=== PATIENT | female | born 1935 | race Caucasian/White ===

== ENCOUNTER → 2017-08-07 14:10 | Outpatient (CLI) | payer MEDICARE, SELFPAY ==
[2017-08-07 16:04] LABS: Anion Gap 8 (5-15); BUN 27 mg/dL (7-18); BUN/Creat Ratio 24.3 RATIO (10-20); Calcium,Total 9.3 mg/dL (8.5-10.1); Chloride 101 mmol/L (98-107); Creatinine, Serum 1.11 mg/dL (0.55-1.02); EST Glomerular Filtration Rate 50 mL/min (>60); Est Glom Filt Rate - Afr Amer 61 mL/min (>60); Glucose 88 mg/dL (74-106); Sodium Level 136 mmol/L (136-145); Thyroid Stim Hormone (TSH) 1.82 uIU/mL (0.358-3.74)
== END ==
PROVIDERS: Family Provider Family Medicine; PCP Family Medicine; Visit Provider Family Medicine
DX: I10 Essential (primary) hypertension (principal); R53.83 Other fatigue
CPT/HCPCS: 36415; 80048; 84443

== ENCOUNTER → 2017-08-31 15:54 | Outpatient (CLI) | payer MEDICARE, SELFPAY ==
--- NOTE | 2017-08-31 11:00 | LES_PTH ---
PATIENT: NESTOR MONTES DE OCA I LOC: [facility] U#:[id number] AGE/SX: 89/F ROOM: RE08/31/[address]: Dr. 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 Special stain for fungi is negative for organisms; matched control is appropriate. Negative for malignancy. SJ:danial 09/07/17 COMMENT Correlation with clinical findings and appropriate follow up are necessary. Case has been reviewed in consultation with Dr. Howe who concurs with the above diagnosis. IDC:AM MICROSCOPIC DESCRIPTION Slides are reviewed. GROSS DESCRIPTION Received is one container labeled with the patient's name and not further designated. The specimen consists of a discoid fragment of light boykin skin measuring 7 mm in diameter and with a maximal thickness of 0.2 cm. The specimen is inked, bisected and totally submitted in one cassette. / AM:danial 09/01/17 TC:3 CPT: 94257, 99594
== END ==
PROVIDERS: Visit Provider Family Medicine
DX: L98.9 Disorder of the skin and subcutaneous tissue, unspecified (principal)
CPT/HCPCS: 88305; 88312

== ENCOUNTER → 2017-09-28 11:57 | Outpatient (CLI) | payer MEDICARE, SELFPAY ==
--- NOTE | 2017-09-28 12:00 | BI_ITS ---
MAMMOGRAPHY - BILATERAL SCREENING REASON FOR EXAM: Female, 82 years old. Routine annual screening examination. PERTINENT HISTORY: Personal history of breast cancer. Prior left lumpectomy with radiation therapy. TECHNIQUE: Digital bilateral breast karina (3D mammographic acquisition) in the CC and MLO projections. 2-D mediolateral oblique (MLO) and craniocaudad (CC) views of both breasts were obtained. CAD: Full Field Digital Mammography with Computer Added Detection was performed. COMPARISON: Comparison is made with prior study dated September 22, 2016 and September 21, 2015. FINDINGS: Breast Composition: There are scattered areas of fibroglandular density. There are no dominant masses or suspicious calcifications. Once again, the patient is status post left lumpectomy with resultant architectural distortion and deformity of the retroareolar region of the left breast in keeping prior surgery. Stable scattered bilateral calcifications. Stable partially calcified nodules in the upper lateral portion of the left breast suggestive of calcifying fibroadenomas. No other significant abnormalities are identified. There has been no significant change since the prior study. BI/SCREENING MAMM (CAD), BILAT IMPRESSION: Stable bilateral screening mammogram. Yearly follow-up mammogram recommended. (A) ASSESSMENT CATEGORY: BIRADS Category 2: Benign. A letter regarding these results will be sent to the patient by the facility within 30 days. Approximately 10% of breast cancers are not detected by mammography. A normal mammogram should not delay biopsy of a clinically suspicious abnormality. [id number] Electronically Signed: Chente Alcaraz MD at 13:24 EDT Tel [phone], Service support ,
== END ==
PROVIDERS: Family Provider Family Medicine; PCP Family Medicine; Visit Provider Family Medicine
DX: Z12.31 Encounter for screening mammogram for malignant neoplasm of breast (principal)
CPT/HCPCS: 77063; 77067

== ENCOUNTER → 2018-02-05 10:55 | Outpatient (CLI) | payer MEDICARE, SELFPAY ==
[2018-02-05 12:19] LABS: Absolute Lymphocyte Count 1.77 X10^3/ul (0.83-4.51); Absolute Neutrophil Count 4.9 X10^3/uL (2.0-7.7); Basophil# 0.04 X10^3/uL; Basophil% 0.5 % (0-1); Eosinophil# 0.23 X10^3/uL; Hematocrit 41.4 % (37-47); Hemoglobin 12.9 g/dl (12.0-15.0); Lymphocyte # 1.77 X10^3/ul (4.0); Lymphocyte % 23.1 % (19-41); Mean Corp Hgb Conc 31.2 g/gl (32-36); Mean Corpuscular Hgb 28.5 pg (27.0-32.0); Mean Corpuscular Volume 91.6 fL (81-99); Mean Platelet Vol. 11.5 fl (6.2-12.0); Monocyte# 0.74 X10^3/uL; Monocyte% 9.6 % (0-10); Neutrophil # 4.87 X10^3/uL (2.7-7.7); Neutrophil % 63.5 % (47-70); Platelet Count 302 K/mm3 (150-450); RBC Distribution Width CV 14.7 % (11.6-14.6); Red Blood Count 4.52 M/mm3 (4.2-5.4); White Blood Count 7.7 K/mm3 (4.4-11.0)
[2018-02-05 12:24] LABS: POSITIVE COUNT NO; POSITIVE DIFFERENTIAL NO; POSITIVE MORPHOLOGY NO
[2018-02-05 12:51] LABS: ALB/GLOB Ratio 0.7 RATIO (0.9-2.4); AST(SGOT) 18 U/L (15-37); Alanine Aminotransfer ALT/SGPT 17 U/L (13-56); Albumin, Serum 3.4 g/dL (3.2-5.0); Alkaline Phosphatase 73 U/L (45-117); Anion Gap 8 (5-15); BUN 31 mg/dL (7-18); BUN/Creat Ratio 24.8 RATIO (10-20); Calcium,Total 8.8 mg/dL (8.5-10.1); Chloride 104 mmol/L (98-107); Cholesterol 208 mg/dL (200); Creatinine, Serum 1.25 mg/dL (0.55-1.02); EST Glomerular Filtration Rate 44 mL/min (>60); Est Glom Filt Rate - Afr Amer 53 mL/min (>60); Glucose 89 mg/dL (74-106); High Density Lipoprotein 55 mg/dL; Potassium 4.2 mmol/L (3.5-5.1); Protein, Total 8.4 g/dL (6.4-8.2); Sodium Level 136 mmol/L (136-145); Thyroid Stim Hormone (TSH) 2.17 uIU/mL (0.358-3.74); Triglycerides 121 mg/dL; Very Low Density Lipoprotein 24 mg/dL (5-40)
== END ==
PROVIDERS: Family Provider Family Medicine; PCP Family Medicine; Visit Provider Family Medicine
DX: E78.5 Hyperlipidemia, unspecified (principal); R42 Dizziness and giddiness
CPT/HCPCS: 36415; 80053; 80061; 84443; 85025

== ENCOUNTER → 2018-08-25 08:40 | Outpatient (CLI) | payer MEDICARE, SELFPAY ==
[2018-08-25 10:31] LABS: Anion Gap 5 (5-15); BUN 23 mg/dL (7-18); Calcium,Total 8.8 mg/dL (8.5-10.1); Chloride 102 mmol/L (98-107); Cholesterol 191 mg/dL (200); EST Glomerular Filtration Rate 56 mL/min (>60); Est Glom Filt Rate - Afr Amer 68 mL/min (>60); Glucose 93 mg/dL (74-106); High Density Lipoprotein 50 mg/dL; Potassium 4.3 mmol/L (3.5-5.1); Sodium Level 137 mmol/L (136-145); Triglycerides 146 mg/dL; Very Low Density Lipoprotein 29 mg/dL (5-40)
== END ==
PROVIDERS: Family Provider Family Medicine; PCP Family Medicine; Referring Provider Family Medicine; Visit Provider Family Medicine
DX: I10 Essential (primary) hypertension (principal)
CPT/HCPCS: 36415; 80048; 80061

== ENCOUNTER → 2018-09-03 06:05 | Outpatient (CLI) | payer MEDICARE, SELFPAY ==
--- NOTE | 2018-09-03 13:34 | STRESSREP ---
Stress Test Report Pharmacologic myocardial perfusion stress test. 83-year-old lady with a history of abnormal EKG. Stress protocol: Resting EKG demonstrates normal sinus rhythm with a rate of 81 bpm normal intervals are noted resting blood pressures 148/82 mmHg. 0.4 mg of regadenoson was infused per usual protocol followed by rapid intravenous saline flush injection continuous EKG monitoring was performed. The patient maintained sinus rhythm throughout the recording. At rest there were no ST or T wave changes noted suggest abnormal flow reserve the maximum heart rate was 96 bpm. At peak infusion nonspecific ST-T wave changes were noted. The resting blood pressures 148/82 with a peak blood pressure 112/62 mmHg. Myocardial perfusion protocol. 11.9 mCi of technetium 99m sestamibi was injected at rest. 0.4 mg of regadenoson was infused per usual protocol peak infusion 33.6 mCi of technetium 99m sestamibi was injected stress images were obtained stress and rest images were reconstructed in comparing the short axis vertical long horizontal long axis. Gated images were also obtained per Perfusion SPECT analysis: Review of the stress images demonstrate normal uptake of tracer noted in all areas of myocardium the resting images similarly demonstrate normal uptake of tracer noted in all areas of myocardium. There is mild apical thinning noted. No obvious ischemia is present. Gated SPECT analysis: The gated ejection fraction is noted to be 77%. Conclusion: Normal pharmacologic myocardial perfusion stress test. Preserved ejection fraction.
== END ==
PROVIDERS: Family Provider Family Medicine; PCP Family Medicine; Referring Provider Family Medicine; Visit Provider Family Medicine
DX: R07.9 Chest pain, unspecified (principal); R00.0 Tachycardia, unspecified; R94.31 Abnormal electrocardiogram [ECG] [EKG]
CPT/HCPCS: 78452; 93017; A9500; A4216; J2785

== ENCOUNTER → 2018-10-30 12:20 | Outpatient (CLI) | payer MEDICARE, SELFPAY ==
--- NOTE | 2018-10-30 12:23 | BI_ITS ---
MAMMOGRAPHY - BILATERAL SCREENING REASON FOR EXAM: Female, 83 years old. Routine annual screening examination. PERTINENT HISTORY: Personal history of breast cancer. Prior left lumpectomy with radiation therapy. Aunt with breast cancer. TECHNIQUE: Digital bilateral breast lisandro (3D mammographic acquisition) in the CC and MLO projections. 2-D mediolateral oblique (MLO) and craniocaudad (CC) views of both breasts were obtained. CAD: Full Field Digital Mammography with Computer Added Detection was performed. COMPARISON: Comparison is made with prior study dated September 28, 2017 and September 22, 2016. FINDINGS: Breast Composition: There are scattered areas of fibroglandular density. There are no dominant masses or suspicious calcifications. Stable deformity of the left breast secondary to prior lumpectomy and radiation therapy. Stable periareolar thickening. Stable scattered bilateral calcifications. No other significant abnormalities are identified. There has been no significant change since the prior study. BI/SCREEN MAMM (CAD) W/LISANDRO BILAT IMPRESSION: Stable bilateral screening mammogram. Yearly follow-up mammogram recommended. (A) ASSESSMENT CATEGORY: BIRADS Category 2: Benign. A letter regarding these results will be sent to the patient by the facility within 30 days. Approximately 10% of breast cancers are not detected by mammography. A normal mammogram should not delay biopsy of a clinically suspicious abnormality. [id number] Electronically Signed: Chente Alcaraz, at 13:45 EDT , Service support ,
== END ==
PROVIDERS: Family Provider Family Medicine; PCP Family Medicine; Referring Provider Family Medicine; Visit Provider Family Medicine
DX: Z12.31 Encounter for screening mammogram for malignant neoplasm of breast (principal)
CPT/HCPCS: 77063; 77067

== ENCOUNTER → 2019-02-21 14:04 | Outpatient (CLI) | payer MEDICARE, SELFPAY ==
[2019-02-21 16:03] LABS: Anion Gap 7 (5-15); BUN 39 mg/dL (7-18); BUN/Creat Ratio 26.4 RATIO (10-20); Chloride 104 mmol/L (98-107); Cholesterol 184 mg/dL (200); Creatinine, Serum 1.48 mg/dL (0.55-1.02); EST Glomerular Filtration Rate 36 mL/min (>60); Est Glom Filt Rate - Afr Amer 43 mL/min (>60); Glucose 82 mg/dL (74-106); High Density Lipoprotein 44 mg/dL; Potassium 4.1 mmol/L (3.5-5.1); Sodium Level 136 mmol/L (136-145); Triglycerides 150 mg/dL; Very Low Density Lipoprotein 30 mg/dL (5-40)
== END ==
PROVIDERS: Family Provider Family Medicine; PCP Family Medicine; Referring Provider Family Medicine; Visit Provider Family Medicine
DX: I10 Essential (primary) hypertension (principal)
CPT/HCPCS: 36415; 80048; 80061

== ENCOUNTER → 2019-08-22 14:03 | Outpatient (CLI) | payer MEDICARE, SELFPAY ==
[2019-08-22 16:19] LABS: Anion Gap 8 (5-15); BUN 30 mg/dL (7-18); Calcium,Total 9.3 mg/dL (8.5-10.1); Chloride 97 mmol/L (98-107); Cholesterol 206 mg/dL (200); Creatinine, Serum 1.25 mg/dL (0.55-1.02); EST Glomerular Filtration Rate 43 mL/min (>60); Est Glom Filt Rate - Afr Amer 53 mL/min (>60); Glucose 93 mg/dL (74-106); High Density Lipoprotein 55 mg/dL; Potassium 3.9 mmol/L (3.5-5.1); Sodium Level 132 mmol/L (136-145); Triglycerides 71 mg/dL; Very Low Density Lipoprotein 14 mg/dL (5-40)
== END ==
PROVIDERS: PCP Family Medicine; Referring Provider Family Medicine; Visit Provider Family Medicine
DX: I10 Essential (primary) hypertension (principal)
CPT/HCPCS: 36415; 80048; 80061

== ENCOUNTER → 2019-11-21 15:11 | Outpatient (CLI) | payer MEDICARE, SELFPAY ==
--- NOTE | 2019-11-21 15:18 | BI_ITS ---
MAMMOGRAPHY - BILATERAL SCREENING 3-D TOMOSYNTHESIS REASON FOR EXAM: Female, 84 years old. Annual screening mammogram. PERTINENT HISTORY: History of lumpectomy at age 76 with radiation.. TECHNIQUE: 2-D mammograms and 3-D Tomosynthesis of the breast (s) were performed. CAD was performed. COMPARISON: 10/30/2018, 01/28/2018 FINDINGS: The breast composition is almost entirely fat. Stable postlumpectomy changes on the left. Stable diffuse benign calcifications bilaterally. There has been no significant change since the prior study. BI/SCREEN MAMM (CAD) W/LISANDRO BILAT IMPRESSION: No mammographic signs of malignancy. Routine yearly mammograms recommended. ASSESSMENT CATEGORY: BIRADS Category 2: Benign. A letter regarding these results will be sent to the patient by the facility within 30 days. FOLLOW UP RECOMMENDATION: Yearly follow up mammogram recommended. (A) Approximately 10% of breast cancers are not detected by mammography. A normal mammogram should not delay biopsy of a clinically suspicious abnormality. Electronically Signed: Prasanth Melendez MD at 15:20 EDT , Service support ,
== END ==
PROVIDERS: PCP Family Medicine; Referring Provider Family Medicine; Visit Provider Family Medicine
DX: Z12.31 Encounter for screening mammogram for malignant neoplasm of breast (principal); Z85.3 Personal history of malignant neoplasm of breast
CPT/HCPCS: 77063; 77067

== ENCOUNTER → 2020-02-17 10:18 | Outpatient (CLI) | payer MEDICARE, SELFPAY ==
[2020-02-17 12:56] LABS: Anion Gap 7 (5-15); BUN 33 mg/dL (7-18); BUN/Creat Ratio 24.1 RATIO (10-20); Calcium,Total 8.9 mg/dL (8.5-10.1); Chloride 97 mmol/L (98-107); Cholesterol 187 mg/dL (200); Creatinine, Serum 1.37 mg/dL (0.55-1.02); EST Glomerular Filtration Rate 39 mL/min (>60); Est Glom Filt Rate - Afr Amer 47 mL/min (>60); Glucose 88 mg/dL (74-106); High Density Lipoprotein 50 mg/dL; Potassium 4.2 mmol/L (3.5-5.1); Sodium Level 133 mmol/L (136-145); Triglycerides 117 mg/dL; Very Low Density Lipoprotein 23 mg/dL (5-40)
== END ==
PROVIDERS: PCP Family Medicine; Visit Provider Family Medicine
DX: I10 Essential (primary) hypertension (principal)
CPT/HCPCS: 36415; 80048; 80061

== ENCOUNTER → 2020-03-04 11:32 | Outpatient (CLI) | payer MEDICARE, SELFPAY ==
--- NOTE | 2020-03-04 11:36 | RAD_ITS ---
STUDY: X-RAY - PELVIS AND BILATERAL HIPS REASON FOR EXAM: Female, 85 years old. PAIN FOR 3 DAYS, RIGHT HIP WORSE THAN LEFT, NO KNOWN INJURY TECHNIQUE: AP view of the pelvis.? 2 views of the right hip, and 2 views of the left hip were obtained. COMPARISON: None. FINDINGS: There is a non-specific bowel gas pattern. Normal visualized soft tissue structures. There is narrowing with cortical sclerosis and osteophyte formation of the sacroiliac joint consistent with degenerative osteoarthritic changes. Normal bilateral superior and inferior pubic rami. There is narrowing with sclerosis of the pubic symphysis. Normal bilateral ischial tuberosities. Nondisplaced right subcapital fracture. There are osteoarthritic changes of the right femoral head with marginal osteophyte formation. There is osteoarthritic spur formation of the right acetabular rim. There is moderate articular joint space narrowing of the right hip. Normal visualized left femoral head. Normal left acetabulum. There is moderate articular joint space narrowing of the left hip. RAD/Hips B/L min 2 views w/ Pelvis IMPRESSION: Nondisplaced right subcapital fracture of the proximal femur. 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 Electronically Signed: Chente Alcaraz, at 11:58 EST , Service support ,
== END ==
PROVIDERS: PCP Family Medicine; Referring Provider Family Medicine; Visit Provider Family Medicine
DX: M25.551 Pain in right hip (principal)
CPT/HCPCS: 73521

== ENCOUNTER 2020-03-05 13:15 | Inpatient (IN) | payer MEDICARE, SELFPAY ==
[2020-03-05 13:17] VITALS: BP 148/69; PULSE 87; RESP 18; TEMP 36.5; O2SAT 98; BMI 36.1
--- NOTE | 2020-03-05 13:33 | EKG12_ITS ---
Test Reason : DYSRHYTHMIA Blood Pressure : / mmHG Vent. Rate : 089 BPM Atrial Rate : 089 BPM P-R Int : 186 ms QRS Dur : 078 ms QT Int : 366 ms P-R-T Axes : 090 002 021 degrees QTc Int : 445 ms Normal sinus rhythm Normal ECG Confirmed by YOLANDE KINNEY, MARLI ([id number]), editor producer CHUCKIE LOVE ([id number]) on 03/09/2020 1:04:34 PM Referred By: Confirmed By:MARLI LANIER MD
--- NOTE | 2020-03-05 13:48 | ED.VIS.GEN ---
History of Present Illness Chief Complaint: Lower Extremity Injury Informant: Patient Onset: - - Known Context: - - Unknown Timing: - - Unknown Quality: Nondisplaced subcapital fracture right Location: Right subcapital nondisplaced fracture Current Severity: Mild Maximum Severity: Mild Worsened by: Patient claims she last fell 1 year ago Relieved by: Not applicable Associated Symptoms: Discomfort which she localizes to the right ischial tuberosity Narrative: Patient is an elderly woman who presents because outpatient x-ray reveals a nondisplaced right subcapital fracture. Patient complains of pain in the right ischial tubercle region. She is able to ambulate. She has no other complaints. She does have history of hypertension. She asked if I was the orthopedic surgeon. I informed her that I am the ER physician and have the orthopedic surgeon on page. Prior similar symptoms: No Recent Illness/Hospitalization: No - Past Medical History (1) History of hypertension Status: Acute Past Medical History - Allergies and Home Meds Allergies/Adverse Reactions: Allergies Penicillins [PCN] Allergy (Verified 03/05/20 13:21) Swelling erythromycin base Adverse Reaction (Verified 03/05/20 13:21) Nausea Primary Care Physician: Waqas Palma MD [Primary Care Provider] - Prior records reviewed: Yes Surgical History: noncontributory Lives: With Family Smoking Status: Never smoker Alcohol: None Drugs: None Review of Systems General: Denies: Chills, Fever, Malaise Eyes: Denies: Visual changes - bilaterally, Blurred Vision - bilaterally ENT: Denies: Rhinorrhea, Sore throat Cardiovascular: Denies: Chest pain, Palpitations Respiratory: Denies: Dyspnea, Cough, Dyspnea on exertion Gastrointestinal: Denies: Abdominal pain, Nausea, Vomiting, Constipation Musculoskeletal: Denies: Myalgias, Arthralgias, Neck pain, Back pain, Swelling, Extremity Pain Endocrine: Denies: Polyuria, Polydipsia Hematologic: Denies: Easy bruising, Easy bleeding Allergy: Denies: Uticaria Physical Exam Vital Signs/Narrative: Vital Signs Temp Pulse Resp BP Pulse Ox 03/05/20 13:17 97.7 F L 87 18 148/69 H 98 Inital Vital Signs reviewed: Yes General: Well nourished, Well developed, Obese Head: Normocephalic, Atraumatic Eyes: Perrl, EOMI. Negative for: Pale conjunctiva, Scleral icterus ENT: Moist mucous membranes, No rhinorrhea Neck: Supple, Nontender, No lymphadenopathy, No JVD Cardiovascular: Regular rate, Regular rhythm, No murmurs, Normal S1 Respiratory: No distress, CTA bilaterally, Chest nontender Abdomen: Soft, Nontender, Nondistended, Normal bowel sounds Rectal: Deferred Back: Nontender, Normal Inspection Extremities: Tenderness, Edema. Negative for: Nontender Skin: Normal color, No rash Neurological: Alert, Oriented x3, Cranial nerves II-XII grossly intact, Normal Strength, Normal Sensation Psychological: Normal affect Diagnostic/Tx/Re-eval Chest X-Ray - ED: 1 View, Read by ED Physician, Normal, Heart, Lungs, Mediastinum, Bony Structures, No Acute Disease, Chronic Changes, - 03/05/20 14:11 Chest 1 View (Portable) [RAD] Stat Laboratory Results 03/05/20 03/05/20 03/05/20 13:50 13:50 13:50 WBC 9.6 RBC 4.33 Hgb 12.9 Hct 39.3 MCV 90.8 MCH 29.8 MCHC 32.8 RDW Std Deviation 46.0 H RDW Coeff of Kierra 13.6 Plt Count 313 MPV 10.9 Immature Gran % (Auto) 0.400 Neut % (Auto) 66.9 Lymph % (Auto) 19.9 [place] % (Auto) 10.4 H Eos % (Auto) 1.8 Baso % (Auto) 0.6 Absolute Neuts (auto) 6.4 Absolute Lymphs (auto) 1.90 Nucleated RBC % 0 PT 13.2 INR 1.1 APTT 26.5 Sodium 133 L Potassium 4.4 Chloride 99 Carbon Dioxide 27.0 Anion Gap 7 BUN 31 H Creatinine 1.35 H Estim Creat Clear Calc 38.43 Est GFR (MDRD) Af Amer 48 L Est GFR (MDRD) Non-Af 40 L BUN/Creatinine Ratio 23.0 H Glucose 93 Calcium 9.2 - EKG Initial EKG Interpretation: Sinus Rhythm - Normal sinus rhythm with a ventricular rate 89. VA interval is 186. QRS duration 78 ms. QT duration 366 ms. [place] is normal. The EKG is normal. EKG was performed at 1343. - Medical Decision Making Outpatient x-ray does reveal a nondisplaced right subcapital fracture. There is no osteoclastic or blastic or bone abnormality to suggestive of pathologic fracture however with no history of trauma this needs to be entertained. Patient was ambulating and ambulated to the emergency department. Appropriate blood work was obtained for medical stratification prior to surgery. Orthopedist Dr. Trudy Vaca was paged. ED Disposition - Plan for ED Patient: Disposition: Acute Care Hospital [facility] Diagnosis: Closed subcapital fracture of right femur Referrals: Waqas Palma MD [Primary Care Provider] -
[2020-03-05 14:02] LABS: Absolute Neutrophil Count 6.4 X10^3/uL (2.0-7.7); Basophil# 0.06 X10^3/uL; Basophil% 0.6 % (0-1); Eosinophil# 0.17 X10^3/uL; Eosinophils% 1.8 % (0-5); Hematocrit 39.3 % (37-47); Hemoglobin 12.9 g/dL (12.0-15.0); Lymphocyte % 19.9 % (19-41); Mean Corp Hgb Conc 32.8 g/dL (32-36); Mean Corpuscular Hgb 29.8 pg (27.0-32.0); Mean Corpuscular Volume 90.8 fL (81-99); Mean Platelet Vol. 10.9 fl (6.2-12.0); Monocyte# 0.99 X10^3/uL; Monocyte% 10.4 % (0-10); NRBC Flagged by Analyzer 0 % (0-5); Neutrophil % 66.9 % (47-70); Platelet Count 313 K/mm3 (150-450); RBC Distribution Width CV 13.6 % (11.6-14.6); Red Blood Count 4.33 M/mm3 (4.2-5.4); White Blood Count 9.6 K/mm3 (4.4-11.0)
[2020-03-05 14:10] LABS: International Normalized Ratio 1.1; Prothrombin Time (Protime)PT. 13.2 SECONDS (11.7-14.9)
--- NOTE | 2020-03-05 14:11 | RAD_ITS ---
STUDY: X-RAY CHEST REASON FOR EXAM: Female, 85 years old. PRE OP, no chest complaints TECHNIQUE: Single AP portable view of the chest. COMPARISON: None. FINDINGS: Limited inspiratory effort. Minimal increased markings at the lung bases suggestive of atelectasis. There is no demonstrated pleural abnormality. Normal size heart. Normal mediastinum and karon. Normal visualized pulmonary arteries. There is atherosclerotic calcification of the aortic arch with tortuosity. There are diffuse degenerative changes of the visualized thoracic spine. Normal visualized ribs, clavicles, and shoulders. There is no demonstrated abnormality of the visualized soft tissue structures of the upper abdomen. RAD/Chest 1 View (Portable) IMPRESSION: Limited inspiratory effort with minimal increased markings at the lung bases suggestive of atelectasis. Electronically Signed: Chente Alcaraz, at 14:23 EST , Service support ,
[2020-03-05 14:12] LABS: Partial Thromboplast Time 26.5 Seconds (24.1-36.2)
[2020-03-05 14:13] LABS: Anion Gap 7 (5-15); BUN 31 mg/dL (7-18); Calcium,Total 9.2 mg/dL (8.5-10.1); Chloride 99 mmol/L (98-107); Creatinine, Serum 1.35 mg/dL (0.55-1.02); EST Glomerular Filtration Rate 40 mL/min (>60); Est Glom Filt Rate - Afr Amer 48 mL/min (>60); Estimated Creatinine Clearance 38.43 ml/min; Glucose 93 mg/dL (74-106); Potassium 4.4 mmol/L (3.5-5.1); Sodium Level 133 mmol/L (136-145)
--- NOTE | 2020-03-05 14:30 | NURSING ---
MED SURG NAY RT [facility]
[2020-03-05 14:33] VITALS: BP 155/62; PULSE 89; RESP 18; TEMP 36.6; O2SAT 99
[2020-03-05 15:04] VITALS: BMI 35.8
[2020-03-05 15:08] VITALS: BMI 35.8
[2020-03-05 15:14] VITALS: BP 151/66; PULSE 88; RESP 16; TEMP 37.1; O2SAT 99
--- NOTE | 2020-03-05 15:33 | HP.PCM_ITS ---
Problem List (1) History of hypertension Status: Chronic (2) Closed subcapital fracture of right femur Status: Acute History of Present Illness Date of Admission: 03/05/20 Chief Complaint: Right hip pain. The patient is a 85 year old F who presents to the emergency room due to right hip pain. Patient states pain has been ongoing for the past 2 days. She was seen by her primary care provider who ordered imaging of her hip. She was notified today to come to the emergency room due to right subcapital fracture. She denies fall or recent injury. She states she fell 1 year ago and reports x- rays at that time were normal. Patient states 2 days ago she was standing in the kitchen when her legs felt numb bilaterally. She states she sat down and this eventually went away. That night, while lying in bed she reports pain down her right leg. She has been able to ambulate. She has a past medical history of hypertension. Past Medical History Past Medical History (Chronic Problems): Chronic Problems History of hypertension (Chronic) Allergies Penicillins [PCN] Allergy (Verified 03/05/20 13:21) Swelling erythromycin base Adverse Reaction (Verified 03/05/20 13:21) Nausea Home Medications: Ambulatory Orders Medication Instructions Recorded Amlodipine [Norvasc] 10 mg PO DAILY 03/05/20 Aspirin [Aspirin, Baby] 81 mg PO DAILY@0800 03/05/20 Cholecalciferol (Vitamin D3) 2,000 unit PO DAILY 03/05/20 [Vitamin D3] Cranberry Fruit Extract/Vit C [Cvs 2 ea PO DAILY 03/05/20 Cranberry-Vitamin C Sfgl] Hydrochlorothiazide [Hctz] 25 mg PO DAILY 03/05/20 Lisinopril [Zestril] 20 mg PO DAILY 03/05/20 Meloxicam 7.5 mg PO DAILY 03/05/20 Omeprazole 20 mg PO DAILY 03/05/20 Oxybutynin [Ditropan] 5 mg PO DAILY 03/05/20 Surgical History: hysterectomy, tonsillectomy, - - Psychiatric History: No pertinent psych hx IN [employer]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 Denies: Joint Pain, Joint Tenderness Skin: Denies: Rash, Wounds Neurological: Denies: Numbness, Tingling, Focal weakness Psychiatric: Denies: Anxiety, Depression, Homicidal Ideations, Suicidal Ideations Hematologic/ Lymphatic: Denies: Easy Bruising, Easy Bleeding VTE Information - Inpt Only VTE Present on Admission: No VTE Mechan Device Prophylaxis: None VTE Pharm Prophylaxis ordered?: Yes Patient Problems: Active and Suspected Problems Closed subcapital fracture of right femur (Acute) - Physical Exam Vitals/I&O's: Vital Signs Temp Pulse Resp BP Pulse Ox 98.7 F 88 16 151/66 H 99 03/05/20 15:14 03/05/20 15:14 03/05/20 15:14 03/05/20 15:14 03/05/20 15:14 Oxygen Delivery Method Room Air Weight: 171 lb 4.787 oz Body Mass Index (BMI) 35.8 General: Alert, Oriented x3, Cooperative HEENT: Atraumatic, PERRLA, EOMI, Normocephalic Neck: Supple, No JVD, Negative Carotid Bruits Lungs: Clear to auscultation, Normal air movement Cardiovascular: Regular rate, No murmurs Abdomen: Bowel Sounds Present, Soft, Non Tender Extremities: No clubbing, No cyanosis, No edema, Capillary Refill Less than 3 Seconds Skin: No rashes, No breakdown Musculoskeletal: No Tenderness to Palpation of Joints or Extremities Neurological: Cranial nerves II-XII grossly intact, Neuro grossly intact Psych/Mental Status: Normal Affect, Appropriate Laboratory Results 03/05/20 13:50: WBC 9.6, RBC 4.33, Hgb 12.9, Hct 39.3, MCV 90.8, MCH 29.8, MCHC 32.8, RDW Std Deviation 46.0 H, RDW Coeff of Kierra 13.6, Plt Count 313, MPV 10.9, Immature Gran % (Auto) 0.400, Neut % (Auto) 66.9, Lymph % (Auto) 19.9, [place] % (Auto) 10.4 H, Eos % (Auto) 1.8, Baso % (Auto) 0.6, Absolute Neuts (auto) 6.4, Absolute Lymphs (auto) 1.90, Nucleated RBC % 0 03/05/20 13:50: PT 13.2, INR 1.1, APTT 26.5 03/05/20 13:50: Sodium 133 L, Potassium 4.4, Chloride 99, Carbon Dioxide 27.0, Anion Gap 7, BUN 31 H, Creatinine 1.35 H, Estim Creat Clear Calc 38.43, Est GFR (MDRD) Af Amer 48 L, Est GFR (MDRD) Non-Af 40 L, BUN/Creatinine Ratio 23.0 H, Glucose 93, Calcium 9.2 03/05/20 13:50: Blood Type O POSITIVE, Antibody Screen NEGATIVE Current Medications Amlodipine Besylate (Amlodipine 5 Mg Tablet) 10 mg PO DAILY [facility] Aspirin (Aspirin 81 Mg Tab.Chew) 81 mg PO DAILY@0800 [facility] Heparin Sodium (Porcine) (Heparin Injection (Vial) 5,000 Unit/Ml Vial) 5,000 unit SC Q8 [facility] Hydrochlorothiazide (Hydrochlorothiazide 25 Mg Tablet) 25 mg PO DAILY [facility] Sodium Chloride () 1,000 mls @ 75 mls/hr IV .[id number] [facility] Lisinopril (Lisinopril 20 Mg Tablet) 20 mg PO DAILY [facility] Meloxicam (Meloxicam 7.5 Mg Tablet) 7.5 mg PO DAILY [facility] Morphine Sulfate (Morphine 2 Mg/Ml Syringe) 2 mg IV Q3H PRN PRN PRN Reason: Pain Score 6-10 Non-Formulary Medication (Cholecalciferol (Vitamin D3) [Vitamin D3]) 2,000 unit PO DAILY [facility] Non-Formulary Medication (Omeprazole) 20 mg PO DAILY [facility] Oxybutynin Chloride (Oxybutynin 5 Mg Tablet) 5 mg PO DAILY [facility] Oxycodone HCl (Oxycodone 5 Mg Tablet) 5 mg PO Q4H PRN PRN PRN Reason: Pain Score 4-5 Sodium Chloride (0.9% Saline Lock 10 Ml Syringe) 10 - 40 ml IV UD PRN PRN Reason: SALINE FLUSH Assessment/Plan All Active Problems Closed subcapital fracture of right femur (Acute) 1. Nondisplaced right subcapital fracture of the proximal femur-patient denies recent trauma. Orthopedic medicine consulted from ER. PT/OT. As needed pain regimen. NSQIP surgical risk calculator completed and patient is below average risk of or serious complication. Patient underwent stress test September 2018 which was negative for ischemia. Her only past medical history is hypertension and chronic kidney disease. Patient is at low risk for surgery and okay to proceed with surgical intervention per medical standpoint. 2. Hypertension-stable, continue amlodipine, lisinopril. 3. Chronic kidney disease stage III-at baseline. DVT prophylaxis-Heparin subcu This patient was seen by FERNANDA Correia under the supervision of Dr. Liang.
--- NOTE | 2020-03-05 15:56 | MRI_ITS ---
STUDY: MRI RIGHT HIP REASON FOR EXAM: Female, 85 years old. right hip pain, non displaced fracture, f/u abnormal xray TECHNIQUE: Standardized fat and water weighted pulse sequences were obtained in all 3 orthogonal planes. COMPARISON: X-ray 03/04/2020. FINDINGS: Normal hip joint without articular joint space narrowing. Normal acetabulum. Normal visualized labrum. Femoral head and neck intact bilaterally. Specifically, no marrow edema to indicate contusion or fracture of the right femoral neck. Radiographic finding may correspond to superimposition of acetabular spur. Marrow edema is noted in the right sacral ala with hypointense fracture line parallel to the sacroiliac joint. Marrow signal is otherwise normal. Mild edema deep to the right iliopsoas muscle, suggesting low-grade strain. Normal gluteus minimus, medius and iliopsoas tendons and distal insertions. Normal origin of the hamstring tendons. Trace fluid in the pelvis. MRI/Lower Ext Joint Only (Routine) IMPRESSION: 1. Nondisplaced fracture of the right sacral ala. 2. Low-grade right iliopsoas strain. 3. Mild free fluid in the pelvis. 4. No right femoral fracture. Plain film finding may be due to projection of acetabular spur. Electronically Signed: Laurita Gerardo MD at 20:29 EST Tel , Service support ,
--- NOTE | 2020-03-05 16:11 | CON.PCM_ITS ---
Reason for Consult Date of Consultation: 03/05/20 History of Present Illness: The patient is a 85 year old female that developed bilateral hip and leg pain after being in her kitchen recently. Patient had a loss of feeling in both legs. She then developed some bilateral buttock and hip pain. She then ultim ately developed some right hip pain with some numbness down to the right foot. She has continued to ambulate with a cane. Denies severe groin pain. She states that she fell last winter. She denies any recent trauma. She denies significant pre-existing hip pain before a week or so ago. Patient was seen by Dr. Palma. X-rays were obtained reported as a femoral neck fracture on the right. Hip arthritis. Reportedly Dr. Gaspar and/or Lanre were notified. Patient was sent to the hospital for admission. Dr. Gaspar was paged. I am uncertain of the response if any. Ultimately I was notified and consulted by Dr De Los Santos and Dr. Liang. I was unaware of involvement of the other orthopedic group acCording to the patient's nurse she has gotten out of bed on her own and easily walk to the bathroom with her cane Patient lives at home with her and multiple family members including her daughter's family [] Past Medical History Past Medical History (Chronic Problems): Chronic Problems History of hypertension (Chronic) Allergies Penicillins [PCN] Allergy (Verified 03/05/20 13:21) Swelling erythromycin base Adverse Reaction (Verified 03/05/20 13:21) Nausea Home Medications: Ambulatory Orders Medication Instructions Recorded Amlodipine [Norvasc] 10 mg PO DAILY 03/05/20 Aspirin [Aspirin, Baby] 81 mg PO DAILY@0800 03/05/20 Cholecalciferol (Vitamin D3) 2,000 unit PO DAILY 03/05/20 [Vitamin D3] Cranberry Fruit Extract/Vit C [Cvs 2 ea PO DAILY 03/05/20 Cranberry-Vitamin C Sfgl] Hydrochlorothiazide [Hctz] 25 mg PO DAILY 03/05/20 Lisinopril [Zestril] 20 mg PO DAILY 03/05/20 Meloxicam 7.5 mg PO DAILY 03/05/20 Omeprazole 20 mg PO DAILY 03/05/20 Oxybutynin [Ditropan] 5 mg PO DAILY 03/05/20 Surgical History: hysterectomy, tonsillectomy, - - Psychiatric History: No pertinent 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 She has full flexion of both hips without much pain. She has full rotation of both hips without much pain. She had no pain with axial loading of the hips. Good plantar flexion dorsiflexion toes and ankles. Distal pulses and sensation are intact today. She denies any numbness currently. Review of systems she denies problems with eyes ears nose or throat heart or lungs bowel or bladder X-rays reviewed with Dr. Root. She does have degenerative changes of both hips. She has a femoral neck fracture on the right that may be an incomplete fracture or possibly a healing remote fracture. Laboratory work and vital signs reviewed Discussed with Dr. De Los Santos and Dr. Chandan Armstrong - Physical Exam Vitals/I&O's: Vital Signs Temp Pulse Resp BP Pulse Ox 98.7 F 88 16 151/66 H 99 03/05/20 15:14 03/05/20 15:14 03/05/20 15:14 03/05/20 15:14 03/05/20 15:14 Oxygen Delivery Method Room Air Weight: 77.7 kg Body Mass Index (BMI) 35.8 Laboratory Results 03/05/20 13:50: WBC 9.6, RBC 4.33, Hgb 12.9, Hct 39.3, MCV 90.8, MCH 29.8, MCHC 32.8, RDW Std Deviation 46.0 H, RDW Coeff of Kierra 13.6, Plt Count 313, MPV 10.9, Immature Gran % (Auto) 0.400, Neut % (Auto) 66.9, Lymph % (Auto) 19.9, [place] % (Auto) 10.4 H, Eos % (Auto) 1.8, Baso % (Auto) 0.6, Absolute Neuts (auto) 6.4, Absolute Lymphs (auto) 1.90, Nucleated RBC % 0 03/05/20 13:50: PT 13.2, INR 1.1, APTT 26.5 03/05/20 13:50: Sodium 133 L, Potassium 4.4, Chloride 99, Carbon Dioxide 27.0, Anion Gap 7, BUN 31 H, Creatinine 1.35 H, Estim Creat Clear Calc 38.43, Est GFR (MDRD) Af Amer 48 L, Est GFR (MDRD) Non-Af 40 L, BUN/Creatinine Ratio 23.0 H, Glucose 93, Calcium 9.2 03/05/20 13:50: Blood Type O POSITIVE, Antibody Screen NEGATIVE Current Medications Amlodipine Besylate (Amlodipine 10 Mg Tablet) 10 mg PO DAILY [facility] Aspirin (Aspirin 81 Mg Tab.Chew) 81 mg PO DAILY@0800 [facility] Cholecalciferol (Cholecalciferol (Vit D3) 1,000 Unit (25mcg)) 2,000 unit PO DAILY [facility] Heparin Sodium (Porcine) (Heparin Injection (Vial) 5,000 Unit/Ml Vial) 5,000 unit SC Q8 [facility] Hydrochlorothiazide (Hydrochlorothiazide 25 Mg Tablet) 25 mg PO DAILY [facility] Sodium Chloride () 1,000 mls @ 75 mls/hr IV .[id number] [facility] Iopamidol (Contrast Allergy Safety Check) 0 ml IV X1 [facility] Lisinopril (Lisinopril 20 Mg Tablet) 20 mg PO DAILY [facility] Meloxicam (Meloxicam 7.5 Mg Tablet) 7.5 mg PO DAILY [facility] Morphine Sulfate (Morphine 2 Mg/Ml Syringe) 2 mg IV Q3H PRN PRN PRN Reason: Pain Score 6-10 Oxybutynin Chloride (Oxybutynin 5 Mg Tablet) 5 mg PO DAILY [facility] Oxycodone HCl (Oxycodone 5 Mg Tablet) 5 mg PO Q4H PRN PRN PRN Reason: Pain Score 4-5 Pantoprazole Sodium (Pantoprazole Sodium 20 Mg Tablet) 20 mg PO DAILY [facility] Sodium Chloride (0.9% Saline Lock 10 Ml Syringe) 10 - 40 ml IV UD PRN PRN Reason: SALINE FLUSH Assessment/Plan All Active Problems Closed subcapital fracture of right femur (Acute) Suspected right femoral neck fracture, nondisplaced, stable of indeterminate cause, uncertain age. Treatment options discussed with her at length. We could try nonoperative treatment with a walker or cane. Possibility of a complete femoral neck fracture occurring would be of concern. Could consider hip pinning. This would not cure her or prevent any further arthritis. Possible further arthritis and/or femoral head collapse could occur. We could consider total hip replacement. Based on patient's current physical exam and lack of significant current or pre-existing hip pain, I am hesitant to recommend total hip replacement at this point. She understands. On further discussion we decided to proceed with an MRI scan of the right hip to confirm the diagnosis and to possibly help determine if this is an acute or chronic fracture. Further decisions will be made after reviewing the MRI. She is currently on the schedule for surgery tomorrow afternoon at 1:30 Risk of surgery including but not limited to from operative or postoperative complications. Risk of anesthetic complications such as heart attacks, strokes, seizures, or . Risk of infections. Risk of damage to nerves arteries tendons. Risk of inadvertent fractures or dislocations. Risk of bone or wound healing complications. Possibility of nonunion malunion pain stiffness weakness. Possible need for further surgery such as hardware removal. Risk of DVT PE and other potential complications could lead to or disability explained. No guarantees were stated or implied. All of their questions were answered. Appropriate informed consent was obtained and will be signed for surgical intervention, after a specific procedure is decided upon. Discussed her penicillin allergy. Reportedly she had a localized swelling at the injection site without any other adverse effects
[2020-03-05] MEDS: 0.9% Normal Saline 1,000 ML 75 ML IV (16:31)
[2020-03-05] MEDS: oxyCODONE 5 MG Tablet PO (19:16)
[2020-03-05 22:00] VITALS: RESP 18
[2020-03-05 22:34] VITALS: BP 149/49; PULSE 72; RESP 18; TEMP 36.8; O2SAT 96
[2020-03-05] MEDS: Heparin Injection (Vial) 5,000 UNIT/ML VIAL 5000 UNIT SC (22:37)
[2020-03-05] MEDS: Pantoprazole Sodium 20 MG Tablet PO (22:38)
[2020-03-06 04:30] VITALS: BP 145/68; PULSE 85; RESP 16; TEMP 36.7; O2SAT 94
[2020-03-06] MEDS: Heparin Injection (Vial) 5,000 UNIT/ML VIAL 5000 UNIT SC (04:52)
[2020-03-06 06:45] LABS: Anion Gap 5 (5-15); BUN 25 mg/dL (7-18); BUN/Creat Ratio 20.7 RATIO (10-20); Calcium,Total 8.5 mg/dL (8.5-10.1); Chloride 105 mmol/L (98-107); Creatinine, Serum 1.21 mg/dL (0.55-1.02); EST Glomerular Filtration Rate 45 mL/min (>60); Est Glom Filt Rate - Afr Amer 55 mL/min (>60); Estimated Creatinine Clearance 42.45 ml/min; Glucose 90 mg/dL (74-106); Potassium 4.1 mmol/L (3.5-5.1); Sodium Level 137 mmol/L (136-145)
[2020-03-06 08:14] VITALS: BP 138/62; PULSE 61; RESP 18; TEMP 36.7; O2SAT 98
--- NOTE | 2020-03-06 08:27 | PN.ORTHO_ITS ---
Patient Problems: Active and Suspected Problems Closed subcapital fracture of right femur (Acute) Subjective: Patient states her right hip pain has completely resolved. She does have some history of intermittent buttock and leg pain all the way down to her feet. She states she fell several years ago injuring her buttock. She has had some intermittent discomfort ever since. She has been walking in her room today without hip or thigh pain. She is hoping for discharge to home today. She is aware of her MRI results. Objective: Patient is sitting comfortably in the chair. She has full active and passive range of motion of both hips without pain. She had no significant pain on palpation about the right hip today. No pain with axial loading of the right hip. Grade 5 strength throughout the legs. Negative straight leg raise. No calf pain or swelling bilaterally. Negative Homans' sign. MRI and report reviewed. No obvious femoral neck fracture on the right. Some hip arthritis bilaterally. Reported sacrum fracture on MRI report may be result of previous trauma. - Physical Exam Vitals/I&O's: Vital Signs Temp Pulse Resp BP Pulse Ox 98.1 F 61 18 138/62 H 98 03/06/20 08:14 03/06/20 08:14 03/06/20 08:14 03/06/20 08:14 03/06/20 08:14 Oxygen Delivery Method Room Air Weight: 77.7 kg Body Mass Index (BMI) 35.8 Intake and Output for Last 24 Hours 03/04/20 03/05/20 03/06/20 23:59 23:59 23:59 Intake Total 140 / 140 500 / 500 Balance 140 / 140 500 / 500 Microbiology Past 72 Hours 03/05/20 Unknown Mucosa - Nasopharyngeal SARS-CoV-2 Antigen (Rapid) - Final Laboratory Results 03/05/20 13:50: WBC 9.6, RBC 4.33, Hgb 12.9, Hct 39.3, MCV 90.8, MCH 29.8, MCHC 32.8, RDW Std Deviation 46.0 H, RDW Coeff of Kierra 13.6, Plt Count 313, MPV 10.9, Immature Gran % (Auto) 0.400, Neut % (Auto) 66.9, Lymph % (Auto) 19.9, [place] % (Auto) 10.4 H, Eos % (Auto) 1.8, Baso % (Auto) 0.6, Absolute Neuts (auto) 6.4, Absolute Lymphs (auto) 1.90, Nucleated RBC % 0 03/05/20 13:50: PT 13.2, INR 1.1, APTT 26.5 03/05/20 13:50: Sodium 133 L, Potassium 4.4, Chloride 99, Carbon Dioxide 27.0, Anion Gap 7, BUN 31 H, Creatinine 1.35 H, Estim Creat Clear Calc 38.43, Est GFR (MDRD) Af Amer 48 L, Est GFR (MDRD) Non-Af 40 L, BUN/Creatinine Ratio 23.0 H, Glucose 93, Calcium 9.2 03/05/20 13:50: Blood Type O POSITIVE, Antibody Screen NEGATIVE 03/06/20 05:31: Sodium 137, Potassium 4.1, Chloride 105, Carbon Dioxide 27.0, Anion Gap 5, BUN 25 H, Creatinine 1.21 H, Estim Creat Clear Calc 42.45, Est GFR (MDRD) Af Amer 55 L, Est GFR (MDRD) Non-Af 45 L, BUN/Creatinine Ratio 20.7 H, Glucose 90, Calcium 8.5 Current Medications Amlodipine Besylate (Amlodipine 10 Mg Tablet) 10 mg PO DAILY [facility] Aspirin (Aspirin 81 Mg Tab.Chew) 81 mg PO DAILY@0800 [facility] Cholecalciferol (Cholecalciferol (Vit D3) 1,000 Unit (25mcg)) 2,000 unit PO DAILY [facility] Heparin Sodium (Porcine) (Heparin Injection (Vial) 5,000 Unit/Ml Vial) 5,000 unit SC Q8 [facility] Last Admin: 03/06/20 04:52 Dose: 5,000 unit Documented by: Hydrochlorothiazide (Hydrochlorothiazide 25 Mg Tablet) 25 mg PO DAILY [facility] Sodium Chloride () 1,000 mls @ 75 mls/hr IV .[id number] [facility] Last Infusion: 03/05/20 18:46 Dose: 75 mls/hr Documented by: Lisinopril (Lisinopril 20 Mg Tablet) 20 mg PO DAILY [facility] Meloxicam (Meloxicam 7.5 Mg Tablet) 7.5 mg PO DAILY [facility] Morphine Sulfate (Morphine 2 Mg/Ml Syringe) 2 mg IV Q3H PRN PRN PRN Reason: Pain Score 6-10 Oxycodone HCl (Oxycodone 5 Mg Tablet) 5 mg PO Q4H PRN PRN PRN Reason: Pain Score 4-5 Last Admin: 03/05/20 19:16 Dose: 5 mg Documented by: Pantoprazole Sodium (Pantoprazole Sodium 20 Mg Tablet) 20 mg PO QHS [facility] Sodium Chloride (0.9% Saline Lock 10 Ml Syringe) 10 - 40 ml IV UD PRN PRN Reason: SALINE FLUSH Tolterodine Tartrate (Tolterodine Tartrate 2 Mg Cap.Sa) 2 mg PO DAILY [facility] Medical Necessity - Tobacco Use Smoking Status: Never smoker Tobacco Use: Non-smoker Assessment/Plan All Active Problems Closed subcapital fracture of right femur (Acute) Patient does not have a right hip fracture. Her diagnosis and treatment options regarding her right buttock pain, bilateral leg pain discussed with her at length. She may have a herniated disc or spinal stenosis. Also may have a remote sacrum fracture. She understands this would be nonoperative. She can be weightbearing as tolerated. She can do full range of motion of both hips. She can use a cane or walker if needed for balance or support. If needed she could follow-up with Dr. Logan Parada spine surgeon at [facility] regarding her sacrum pain, bilateral leg pain numbness. Can be discharged to home from an orthopedic standpoint
[2020-03-06] MEDS: Aspirin 81 MG TAB.CHEW PO (08:30)
[2020-03-06] MEDS: Meloxicam 7.5 MG Tablet PO (08:31)
[2020-03-06] MEDS: amLODIPine 10 MG Tablet PO (08:31)
[2020-03-06] MEDS: hydroCHLOROthiazide 25 MG Tablet PO (08:31)
[2020-03-06] MEDS: Lisinopril 20 MG Tablet PO (08:32)
[2020-03-06] MEDS: Tolterodine Tartrate 2 MG CAP.SA PO (08:33)
--- NOTE | 2020-03-06 10:10 | CASEMGMT ---
INEZ GARG Face to Face with patient for initial transition planning/care coordination assessment. RN CM introduced self and role at [facility]. Patient sitting in chair, alert and oriented. Patient willing to participate in assessment and is able to answer all questions appropriately. Care providers, pharmacy, and demographics verified. Patient wishes to discharge home and would like [facility] for therapy. INEZ GARG provided list of [facility] agencies to review. Patient states she has no further needs or concerns at this time. CM to follow for discharge planning needs that may arise. 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 Patient states she is able to ambulate stairs and is independent at home. Transportation: daughter, family DME/HHC: Patient states she has shower chair, raised toilet, grab bars, and walker at home. Patient to review list of HHC and CM will assist with setup after selecting agency. Disposition Plan: Patient to discharge home with HHC, family support, and follow-up plans in place. Nola NORMAN, RN, CM
--- NOTE | 2020-03-06 11:09 | DCINST_ITS ---
- Discharge Diagnoses Current Active Problems: Current Active and Chronic Problems History of hypertension (Chronic) You will use the following diet at home:: No restrictions Discharge Activity: Return to Normal Activity Call your doctor if you observe: Shortness of breath, Dizziness, Fainting spells, Chest pain Allergies/Adverse Reactions: Allergies Penicillins [PCN] Allergy (Verified 03/05/20 13:21) Swelling erythromycin base Adverse Reaction (Verified 03/05/20 13:21) Nausea Medications to take at Discharge Amlodipine [Norvasc] 10 mg PO DAILY 03/05/20 Aspirin [Aspirin, Baby] 81 mg PO DAILY@0800 03/05/20 Cholecalciferol (Vitamin D3) [Vitamin D3] 2,000 unit PO DAILY 03/05/20 Cranberry Fruit Extract/Vit C [Cvs Cranberry-Vitamin C Sfgl] 2 ea PO DAILY 03/05/20 Hydrochlorothiazide [Hctz] 25 mg PO DAILY 03/05/20 Lisinopril [Zestril] 20 mg PO DAILY 03/05/20 Meloxicam 7.5 mg PO DAILY 03/05/20 Omeprazole 20 mg PO DAILY 03/05/20 Oxybutynin [Ditropan] 5 mg PO DAILY 03/05/20 Primary Care Physician: Waqas Palma MD [Primary Care Provider] - Please follow up with your Primary Care Physician in: 1 Week Test Results: Test results from this visit will be discussed in further detail at your follow- up appointment, if applicable. Please Follow Up With: Henrry Carney DO - Please make appt prior to dc When: 1-2 Weeks Proposed Discharge Date: 03/06/20
--- NOTE | 2020-03-06 11:11 | DS.PCM_ITS ---
<Marisol Daniel SILK HANGER - Last Filed: 03/06/20 11:24> Discharge Date and Diagnosis - Problem List Patient Problems: Active and Suspected Problems Closed subcapital fracture of right femur (Acute) Date of Admission: 03/05/20 Date of Discharge: 03/06/20 - Primary Discharge Diagnosis Acute Problems: Active Problems 1. Bilateral hip pain, debility 2. Hypertension 3. Chronic kidney disease stage III - Secondary Discharge Diagnosis Chronic Problems: Chronic Problems History of hypertension (Chronic) Hospital Course and Treatment Imaging Results: Diagnostic Data Chest X-Ray 03/05/20 14:11 IMPRESSION: Limited inspiratory effort with minimal increased markings at the lung bases suggestive of atelectasis. Electronically Signed: Chente Alcaraz, at 14:23 EST , Service support , Lower Extremity MRI 03/05/20 15:56 IMPRESSION: 1. Nondisplaced fracture of the right sacral ala. 2. Low-grade right iliopsoas strain. 3. Mild free fluid in the pelvis. 4. No right femoral fracture. Plain film finding may be due to projection of acetabular spur. Electronically Signed: Laurita Gerardo MD at 20:29 EST Tel , Service support , Dr. Hussain Mahajan- ortho Operations: None Procedures: None Summary of Care Provided: The patient is a 85 year old F admitted 03/05/2020 due to right hip pain. 1. Bilateral hip pain, debility-right hip fracture ruled out. Outpatient x-ray by PCP demonstrated nondisplaced right subcapital fracture. Orthopedic medicine consulted. Patient further underwent lower extremity MRI which showed nondisplaced fracture of the right sacral ala, low-grade right iliopsoas strain. No right femoral fracture. Patient reports intermittent pain down her legs, intermittent right buttock pain and intermittent lower extremity numbness which she reports resolves on its own. She denies loss of bowel or bladder function. Patient states episodes of numbness and pain down her legs are sporadic. Plan for home physical therapy and follow-up with Dr. Carney, spine surgeon for further outpatient evaluation and management. 2. Hypertension-stable, continue amlodipine, lisinopril. 3. Chronic kidney disease stage III-at baseline. General: Alert, Oriented x3, Cooperative HEENT: Atraumatic, PERRLA, EOMI, Normocephalic Neck: Supple, No JVD, Negative Carotid Bruits Lungs: Clear to auscultation, Normal air movement Cardiovascular: Regular rate, No murmurs Abdomen: Bowel Sounds Present, Soft, Non Tender Extremities: No clubbing, No cyanosis, No edema, Capillary Refill Less than 3 Seconds Skin: No rashes, No breakdown Musculoskeletal: No Tenderness to Palpation of Joints or Extremities Neurological: Cranial nerves II-XII grossly intact, Neuro grossly intact Psych/Mental Status: Normal Affect, Appropriate Patient seen and examined prior to discharge. Physical assessment as noted above. Patient is stable for discharge with follow up recommendations as noted above. This patient was seen by FERNANDA Correia under the supervision of Dr. Ocasio. Patient Problems: Active and Suspected Problems Closed subcapital fracture of right femur (Acute) - Physical Exam Vitals/I&O's: Vital Signs Temp Pulse Resp BP Pulse Ox 98.1 F 61 18 138/62 H 98 03/06/20 08:14 03/06/20 08:14 03/06/20 08:14 03/06/20 08:14 03/06/20 08:14 Oxygen Delivery Method Room Air Weight: 171 lb 4.787 oz Body Mass Index (BMI) 35.8 Intake and Output for Last 24 Hours 03/04/20 03/05/20 03/06/20 23:59 23:59 23:59 Intake Total 140 / 140 1360 / 1360 Balance 140 / 140 1360 / 1360 Microbiology Past 72 Hours 03/05/20 Unknown Mucosa - Nasopharyngeal SARS-CoV-2 Antigen (Rapid) - Final Laboratory Results 03/05/20 13:50: WBC 9.6, RBC 4.33, Hgb 12.9, Hct 39.3, MCV 90.8, MCH 29.8, MCHC 32.8, RDW Std Deviation 46.0 H, RDW Coeff of Kierra 13.6, Plt Count 313, MPV 10.9, Immature Gran % (Auto) 0.400, Neut % (Auto) 66.9, Lymph % (Auto) 19.9, [place] % (Auto) 10.4 H, Eos % (Auto) 1.8, Baso % (Auto) 0.6, Absolute Neuts (auto) 6.4, Absolute Lymphs (auto) 1.90, Nucleated RBC % 0 03/05/20 13:50: PT 13.2, INR 1.1, APTT 26.5 03/05/20 13:50: Sodium 133 L, Potassium 4.4, Chloride 99, Carbon Dioxide 27.0, Anion Gap 7, BUN 31 H, Creatinine 1.35 H, Estim Creat Clear Calc 38.43, Est GFR (MDRD) Af Amer 48 L, Est GFR (MDRD) Non-Af 40 L, BUN/Creatinine Ratio 23.0 H, Glucose 93, Calcium 9.2 03/05/20 13:50: Blood Type O POSITIVE, Antibody Screen NEGATIVE 03/06/20 05:31: Sodium 137, Potassium 4.1, Chloride 105, Carbon Dioxide 27.0, Anion Gap 5, BUN 25 H, Creatinine 1.21 H, Estim Creat Clear Calc 42.45, Est GFR (MDRD) Af Amer 55 L, Est GFR (MDRD) Non-Af 45 L, BUN/Creatinine Ratio 20.7 H, Glucose 90, Calcium 8.5 Current Medications Amlodipine Besylate (Amlodipine 10 Mg Tablet) 10 mg PO DAILY [facility] Last Admin: 03/06/20 08:31 Dose: 10 mg Documented by: Aspirin (Aspirin 81 Mg Tab.Chew) 81 mg PO DAILY@0800 [facility] Last Admin: 03/06/20 08:30 Dose: 81 mg Documented by: Cholecalciferol (Cholecalciferol (Vit D3) 1,000 Unit (25mcg)) 2,000 unit PO DAILY [facility] Last Admin: 03/06/20 08:32 Dose: 2,000 unit Documented by: Heparin Sodium (Porcine) (Heparin Injection (Vial) 5,000 Unit/Ml Vial) 5,000 unit SC Q8 [facility] Last Admin: 03/06/20 04:52 Dose: 5,000 unit Documented by: Hydrochlorothiazide (Hydrochlorothiazide 25 Mg Tablet) 25 mg PO DAILY [facility] Last Admin: 03/06/20 08:31 Dose: 25 mg Documented by: Sodium Chloride () 1,000 mls @ 75 mls/hr IV .[id number] [facility] Last Infusion: 03/06/20 08:29 Dose: Infused Documented by: Lisinopril (Lisinopril 20 Mg Tablet) 20 mg PO DAILY [facility] Last Admin: 03/06/20 08:32 Dose: 20 mg Documented by: Meloxicam (Meloxicam 7.5 Mg Tablet) 7.5 mg PO DAILY [facility] Last Admin: 03/06/20 08:31 Dose: 7.5 mg Documented by: Morphine Sulfate (Morphine 2 Mg/Ml Syringe) 2 mg IV Q3H PRN PRN PRN Reason: Pain Score 6-10 Oxycodone HCl (Oxycodone 5 Mg Tablet) 5 mg PO Q4H PRN PRN PRN Reason: Pain Score 4-5 Last Admin: 03/05/20 19:16 Dose: 5 mg Documented by: Pantoprazole Sodium (Pantoprazole Sodium 20 Mg Tablet) 20 mg PO QHS [facility] Sodium Chloride (0.9% Saline Lock 10 Ml Syringe) 10 - 40 ml IV UD PRN PRN Reason: SALINE FLUSH Tolterodine Tartrate (Tolterodine Tartrate 2 Mg Cap.Sa) 2 mg PO DAILY [facility] Last Admin: 03/06/20 08:33 Dose: 2 mg Documented by: Discharge Diet: No Restrictions Discharge Activity: Return to Normal Activity Call your doctor if you observe: Shortness of breath, Dizziness, Fainting spells, Chest pain Home Medications: Medications to take at Discharge Amlodipine [Norvasc] 10 mg PO DAILY 03/05/20 Aspirin [Aspirin, Baby] 81 mg PO DAILY@0800 03/05/20 Cholecalciferol (Vitamin D3) [Vitamin D3] 2,000 unit PO DAILY 03/05/20 Cranberry Fruit Extract/Vit C [Cvs Cranberry-Vitamin C Sfgl] 2 ea PO DAILY 03/05/20 Hydrochlorothiazide [Hctz] 25 mg PO DAILY 03/05/20 Lisinopril [Zestril] 20 mg PO DAILY 03/05/20 Meloxicam 7.5 mg PO DAILY 03/05/20 Omeprazole 20 mg PO DAILY 03/05/20 Oxybutynin [Ditropan] 5 mg PO DAILY 03/05/20 Primary Care Physician: Waqas Palma MD [Primary Care Provider] - Please follow up with your Primary Care Physician in: 1 Week Please Follow Up With: Carney,Henrry, DO - Please make appt prior to dc When: 1-2 Weeks Disposition: Home Minutes spent on discharge:: 35 Patient Condition:: Stable Medical Necessity - Tobacco Use Smoking Status: Never smoker Tobacco Use: Non-smoker Meaningful Use Info Meaningful Use Diagnoses (Choose all that apply): None applicable <Jaimie Ocasio - Last Filed: 03/06/20 16:57> Discharge Date and Diagnosis - Primary Discharge Diagnosis Acute Problems: Active Problems Closed subcapital fracture of right femur (Acute) - Secondary Discharge Diagnosis Chronic Problems: Chronic Problems History of hypertension (Chronic) Hospital Course and Treatment Summary of Care Provided: I agree with the above and the following is a reflection of my own independent history and examination Ms Lyn is a 85 year old F who presented to the ED on 03/05/2020 due to right hip pain. She stated that pain has been ongoing for the past 2 days. She was seen by her primary care provider who ordered imaging of her hip. She was notified on the day of admission to come to the emergency room due to right subcapital fracture. She denies fall or recent injury. She reported that she fell about 1 year ago and reports x-rays at that time were normal. She states 2 days prior to admission she was standing in the kitchen when her legs felt numb bilaterally. She states she sat down and this eventually went away. That night, while lying in bed she reports pain down her right leg that improves when she gets up to sit in a recliner. She has been able to ambulate. Ortho was consulted and obtained an MRI to deliniate the extent of the fracture. The MRI showed nondisplaced fracture of the right sacral ala, low-grade right iliopsoas strain. She was set up with home care for PT and instructed to f/u with Dr. Carney for suspected spinal stenosis based on her sx. She has no neurological changes to warrant acute inpt mgt. She was d/c home in stable condition. - Physical Exam Vitals/I&O's: Vital Signs Temp Pulse Resp BP Pulse Ox 98.5 F 67 18 123/50 H 95 03/06/20 13:26 03/06/20 13:26 03/06/20 13:26 03/06/20 13:26 03/06/20 13:26 Oxygen Delivery Method Room Air Weight: 77.7 kg Body Mass Index (BMI) 35.8 Intake and Output for Last 24 Hours 03/04/20 03/05/20 03/06/20 23:59 23:59 23:59 Intake Total 140 / 140 1999 / 1999 Output Total 300 / 300 Balance 140 / 140 1700 / 1700 General: Alert, Oriented x3, Cooperative, No apparent distress, Well developed, Well nourished, - - Very talkative elderly WF sitting up in bed, appears comfortable HEENT: Atraumatic, PERRLA, EOMI, Normocephalic, EAC Clear Oral: Moist Mucosa, No Gingival or Mucosal Lesions/ Ulcerations Neck: Supple, No JVD, Trachea Midline, Thyroid Normal Size and Texture Lungs: Clear to auscultation, Normal air movement, No rhonchi, No wheeze, No rales, Diminished Cardiovascular: Regular rate, Regular Rhythm, Normal S1, Normal S2, No murmurs, No Ectopic Activity, No rub noted, No Gallop Abdomen: Bowel Sounds Present, Soft, Non Tender, Non-Distended, No Hepato- splenomegaly Extremities: No clubbing, No cyanosis, No edema, Capillary Refill Less than 3 Seconds, Peripheral Pulses Normal Skin: No rashes, No breakdown Musculoskeletal: No Tenderness to Palpation of Joints or Extremities, No Muscle Wasting Neurological: Cranial nerves II-XII grossly intact, Neuro grossly intact, Muscle tone normal, Coordination normal Psych/Mental Status: Normal Affect, Appropriate Microbiology Past 72 Hours 03/05/20 Unknown Mucosa - Nasopharyngeal SARS-CoV-2 Antigen (Rapid) - Final Laboratory Results 03/06/20 05:31: Sodium 137, Potassium 4.1, Chloride 105, Carbon Dioxide 27.0, Anion Gap 5, BUN 25 H, Creatinine 1.21 H, Estim Creat Clear Calc 42.45, Est GFR (MDRD) Af Amer 55 L, Est GFR (MDRD) Non-Af 45 L, BUN/Creatinine Ratio 20.7 H, Glucose 90, Calcium 8.5 Inpatient E&M: 23389 Disch Hosp
--- NOTE | 2020-03-06 11:55 | CASEMGMT ---
INEZ GARG in to discuss C choices. After reviewing list patient would like [facility]. INEZ GARG sent referral to [facility] and they are able to accept the patient and will see the patient on Monday. INEZ GARG updated the patient regarding acceptance.
[2020-03-06 13:26] VITALS: BP 123/50; PULSE 67; RESP 18; TEMP 36.9; O2SAT 95
[2020-03-06 14:03] VITALS: BP 123/50; PULSE 67; RESP 18; TEMP 36.9; O2SAT 95
== END 2020-03-06 14:03 | disposition home or self-care (01) | DRG 537 ==
LOC: ED 14:24 → MS3 14:46
PROVIDERS: Admitting Provider Internal Medicine; Emergency Provider Emergency Medicine; PCP Family Medicine; Visit Provider Internal Medicine
DX: S76.011A Strain of muscle, fascia and tendon of right hip, initial encounter (principal); S32.110A Nondisplaced Zone I fracture of sacrum, initial encounter for closed fracture; X58.XXXA Exposure to other specified factors, initial encounter; M25.552 Pain in left hip; R53.81 Other malaise; I12.9 Hypertensive chronic kidney disease with stage 1 through stage 4 chronic kidney disease, or unspecified chronic kidney disease; N18.30 Chronic kidney disease, stage 3 unspecified; M48.00 Spinal stenosis, site unspecified; E66.9 Obesity, unspecified; Z68.35 Body mass index [BMI] 35.0-35.9, adult; Z79.899 Other long term (current) drug therapy
CPT/HCPCS: 36415; 71045; 73521; 73721; 80048; 85025; 85610; 85730; 86850; 86900; 86901; 87426; 93005; 97162; 97166; 99284; J7030; A4216

== ENCOUNTER → 2020-08-17 13:47 | Outpatient (CLI) | payer MEDICARE, SELFPAY ==
[2020-03-18 15:28] VITALS: BMI 36.6
[2020-08-17 15:52] LABS: Anion Gap 8 (5-15); BUN 32 mg/dL (7-18); BUN/Creat Ratio 26.4 RATIO (10-20); Calcium,Total 9.4 mg/dL (8.5-10.1); Chloride 98 mmol/L (98-107); Cholesterol 203 mg/dL (200); Creatinine, Serum 1.21 mg/dL (0.55-1.02); EST Glomerular Filtration Rate 45 mL/min (>60); Est Glom Filt Rate - Afr Amer 54 mL/min (>60); Glucose 83 mg/dL (74-106); High Density Lipoprotein 58 mg/dL; Potassium 4.7 mmol/L (3.5-5.1); Sodium Level 133 mmol/L (136-145); Triglycerides 113 mg/dL; Very Low Density Lipoprotein 23 mg/dL (5-40)
== END ==
PROVIDERS: PCP Family Medicine; Visit Provider Family Medicine
DX: I10 Essential (primary) hypertension (principal); E78.5 Hyperlipidemia, unspecified
CPT/HCPCS: 36415; 80048; 80061

== ENCOUNTER → 2021-02-18 13:56 | Outpatient (CLI) | payer MEDICARE, SELFPAY ==
[2021-02-18 15:31] LABS: Anion Gap 5 (5-15); BUN 36 mg/dL (7-18); BUN/Creat Ratio 28.6 RATIO (10-20); Calcium,Total 9.4 mg/dL (8.5-10.1); Chloride 106 mmol/L (98-107); Cholesterol 209 mg/dL (200); Creatinine, Serum 1.26 mg/dL (0.55-1.02); EST Glomerular Filtration Rate 43 mL/min (>60); Est Glom Filt Rate - Afr Amer 52 mL/min (>60); Glucose 98 mg/dL (74-106); High Density Lipoprotein 54 mg/dL; Potassium 4.2 mmol/L (3.5-5.1); Sodium Level 135 mmol/L (136-145); Triglycerides 119 mg/dL; Very Low Density Lipoprotein 24 mg/dL (5-40)
== END ==
PROVIDERS: PCP Family Medicine; Referring Provider Family Medicine; Visit Provider Family Medicine
DX: I10 Essential (primary) hypertension (principal)
CPT/HCPCS: 36415; 80048; 80061

== ENCOUNTER → 2021-03-04 10:41 | Outpatient (CLI) | payer MEDICARE, SELFPAY ==
--- NOTE | 2021-03-04 10:43 | BI_ITS ---
MAMMOGRAPHY - BILATERAL SCREENING REASON FOR EXAM: Female, 86 years old. Routine annual screening examination. PERTINENT HISTORY: Personal history of breast cancer. Prior left lumpectomy and radiation treatment. TECHNIQUE: Digital bilateral breast lisandro (3D mammographic acquisition) in the CC and MLO projections. 2-D mediolateral oblique (MLO) and craniocaudad (CC) views of both breasts were obtained. CAD: Full Field Digital Mammography with Computer Added Detection was performed. COMPARISON: Comparison is made with prior study 11/21/2019 and 10/30/2018. FINDINGS: Breast Composition: There are scattered areas of fibroglandular density. There are no dominant masses or suspicious calcifications. Once again, the patient is status post lumpectomy in the upper lateral aspect of the left breast with postoperative deformity of the breast and skin thickening and architectural distortion. Stable bilateral calcifications. Stable benign-appearing bilateral axillary lymph nodes. No other significant abnormalities are identified. There has been no significant change since the prior study. BI/SCRN MAMM (CAD)W/LISANDRO BILAT IMPRESSION: Stable bilateral screening mammogram. Yearly follow-up mammogram recommended. (A) ASSESSMENT CATEGORY: BIRADS Category 2: Benign. A letter regarding these results will be sent to the patient by the facility within 30 days. Approximately 10% of breast cancers are not detected by mammography. A normal mammogram should not delay biopsy of a clinically suspicious abnormality. [id number] Electronically Signed: Chente Alcaraz MD at 11:43 EST , Service support ,
== END ==
PROVIDERS: PCP Family Medicine; Referring Provider Family Medicine; Visit Provider Family Medicine
DX: Z12.31 Encounter for screening mammogram for malignant neoplasm of breast (principal)
CPT/HCPCS: 77063; 77067

== ENCOUNTER → 2021-03-17 16:44 | Outpatient (CLI) | payer MEDICARE, SELFPAY ==
--- NOTE | 2021-03-17 16:48 | RAD_ITS ---
STUDY: X-RAY - RIGHT KNEE REASON FOR EXAM: Female, 86 years old. Right knee pain TECHNIQUE: 4 view(s) of the knee. COMPARISON: None. FINDINGS: Normal visualized distal femur. Hypertrophic spurring of the lateral tibial plateau. Normal proximal tibiofibular articulation. Segment and hypertrophic spurring of the superior patellar pole and at the inferior patellofemoral articulation. Moderate degenerative change of the medial and patellofemoral compartment. Mild degenerative change of the lateral compartment. No knee joint effusion. The soft tissue structures are unremarkable. 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 Electronically Signed: Leonel Rodríguez MD at 2:04 EST Tel , Service support ,
== END ==
PROVIDERS: PCP Family Medicine; Referring Provider Family Medicine; Visit Provider Family Medicine
DX: M17.11 Unilateral primary osteoarthritis, right knee (principal)
CPT/HCPCS: 73564

== ENCOUNTER → 2021-08-18 | Outpatient (CLI) | payer MEDICARE, SELFPAY ==
[2021-08-18 16:02] LABS: Anion Gap 9 (5-15); BUN 27 mg/dL (7-18); BUN/Creat Ratio 24.3 RATIO (10-20); Calcium,Total 9.4 mg/dL (8.5-10.1); Chloride 98 mmol/L (98-107); Cholesterol 215 mg/dL (200); Creatinine, Serum 1.11 mg/dL (0.55-1.02); EST Glomerular Filtration Rate 50 mL/min (>60); Est Glom Filt Rate - Afr Amer 60 mL/min (>60); Glucose 93 mg/dL (74-106); High Density Lipoprotein 60 mg/dL; Sodium Level 133 mmol/L (136-145); Triglycerides 90 mg/dL; Very Low Density Lipoprotein 18 mg/dL (5-40)
== END | disposition home or self-care (01) ==
LOC: MFPLAB 14:06
PROVIDERS: PCP Family Medicine; Referring Provider Family Medicine; Visit Provider Family Medicine
DX: I10 Essential (primary) hypertension (principal); E78.5 Hyperlipidemia, unspecified
CPT/HCPCS: 36415; 80048; 80061

== ENCOUNTER → 2021-08-20 | Outpatient (CLI) | payer MEDICARE, SELFPAY ==
--- NOTE | 2021-08-20 14:28 | US_ITS ---
STUDY: ULTRASOUND BREAST - LEFT REASON FOR EXAM: Female, 86 years old. Skin thickening TECHNIQUE: Axial and longitudinal images of the LEFT breast were performed with a high resolution ultrasound transducer. # OF IMAGES: 55 COMPARISON: Diagnostic mammogram earlier today FINDINGS: LEFT Breast: Heterogeneous background echotexture. At 2 o''clock, 5 cm nipple, ultrasound demonstrates an 8 mm irregular not parallel microlobulated hypoechoic mass with no posterior features not consistent with a cyst and ultrasound-guided vacuum-assisted core biopsy is recommended. At 2 o''clock, 8 cm from the nipple, ultrasound confirms a 22 mm irregular parallel microlobulated hypoechoic mass with posterior shadowing is not consistent with a cyst and ultrasound-guided vacuum-assisted core biopsy is recommended.: US/Breast Limited Unilateral IMPRESSION: Ultrasound confirms 2 hypoechoic masses not consistent with cysts and ultrasound-guided vacuum-assisted core biopsy is recommended. Breast MRI may also be useful for multiple areas. ASSESSMENT CATEGORY: BIRADS Category 4: Suspicious - Biopsy Should Be Considered. A letter regarding these results will be sent to the patient by the facility within 30 days. Electronically Signed: Triston White MD at 16:01 EDT ,
--- NOTE | 2021-08-20 14:28 | BI_ITS ---
MAMMOGRAPHY - UNILATERAL DIAGNOSTIC: LEFT BREAST REASON FOR EXAM: Female, 86 years old. Skin thickening of the left breast. PERTINENT HISTORY: Personal history of breast cancer. Prior left lumpectomy and radiation treatment. TECHNIQUE: Digital unilateral breast karina (3D mammographic acquisition) in the CC and MLO projections. 2-D mediolateral oblique (MLO) and craniocaudad (CC) views of both breasts were obtained. CAD: Full Field Digital Mammography with Computer Added Detection was performed. COMPARISON: Comparison is made with prior examination dated 03/04/2021. FINDINGS: Breast Composition: There are scattered areas of fibroglandular density. The patient is status post left lumpectomy and architectural distortion in the retroareolar region of the left breast. Stable diffuse calcifications. Stable benign appearing left axillary lymph nodes. Diffuse overlying skin thickening. No other significant abnormalities are identified. There has been no significant change since the prior study. BI/DIAG MAMM W/CAD, UNILAT IMPRESSION: Stable unilateral diagnostic mammogram. One year follow-up mammogram recommended. (A) ASSESSMENT CATEGORY: BIRADS Category 2: Benign. A letter regarding these results will be sent to the patient by the facility within 30 days. Approximately 10% of breast cancers are not detected by mammography. A normal mammogram should not delay biopsy of a clinically suspicious abnormality. Electronically Signed: Chente Alcaraz MD at 15:20 EDT ,
== END | disposition home or self-care (01) ==
LOC: OPBI 14:27
PROVIDERS: PCP Family Medicine; Visit Provider Family Medicine
DX: N63.21 Unspecified lump in the left breast, upper outer quadrant (principal)
CPT/HCPCS: 76642; 77061; 77065; G0279

== ENCOUNTER → 2021-09-01 | Outpatient (CLI) | payer MEDICARE, SELFPAY | END | disposition home or self-care (01) | LOC: MFPLAB 10:40 | PROVIDERS: PCP Family Medicine; Visit Provider Family Medicine | DX: N39.0 Urinary tract infection, site not specified (principal) | CPT/HCPCS: 87086; 87088; 87186 ==

== ENCOUNTER → 2021-09-08 | Outpatient (CLI) | payer MEDICARE, SELFPAY ==
--- NOTE | 2021-09-08 10:57 | MRI_ITS ---
STUDY: BILATERAL BREAST MR WITHOUT AND WITH CONTRAST REASON FOR EXAM: Female, 86 years old. History of left breast cancer status post lumpectomy 10 years ago. Left breast mass with skin thickening. TECHNIQUE: Multi-sequence multi-echo imaging of both breasts was performed with a dedicated breast coil. T1-weighted and T2-weighted images were performed before the administration of contrast. T1-weighted images were also performed after the intravenous administration of 15 cc of Dotarem contrast. COMPARISON: Bilateral mammograms dated 03/04/2021, left mammogram dated 08/20/2021 and left breast ultrasound dated 08/20/2021. FINDINGS: RIGHT BREAST: The breast tissue is scattered fibroglandular densities with minimal background enhancement. There are no abnormal enhancing masses or areas of non-mass enhancement in the right breast. LEFT BREAST: The breast tissue is scattered fibroglandular densities with minimal background enhancement. Multiple enhancing masses in the upper outer quadrant. A solitary mass 4 cm behind the nipple and slightly above the nipple measuring 1 cm in diameter. Mass slightly lateral to the nipple measuring approximately 4.3 cm x 2.4 cm x 4.4 cm with extension of the enhancement to the retroareolar region of the left breast slightly lateral to the nipple. Two small enhancing masses approximately 3 cm below the nipple measuring 6 mm and 7 mm in diameter. These masses are also suspicious. Multiple enlarged left axillary lymph nodes, the largest of which is approximately 17 mm in longest diameter. These lymph nodes are highly suspicious. There is no abnormality in the visualized regions of the chest or liver. MRI/Breast Bilateral W/O and W IMPRESSION: Multiple masses in the upper outer aspect of the left breast as described. Two smaller irregular suspicious enhancing masses below the nipple as described. Findings are compatible with multicentric disease in the left breast and ultrasound-guided biopsy of the mass seen on the left breast ultrasound is recommended for histologic confirmation. Multiple enlarged left axillary lymph nodes, highly suspicious. CATEGORY: BIRADS Category 4: Suspicious - Biopsy Should Be Considered. A letter regarding these results will be sent to the patient by the facility within 30 days. Electronically Signed: Prasanth Melendez MD at 10:04 EDT ,
== END | disposition home or self-care (01) ==
PROVIDERS: PCP Family Medicine; Visit Provider Surgery
DX: N63.21 Unspecified lump in the left breast, upper outer quadrant (principal)
CPT/HCPCS: 77049; A9575; A4216; C8908

== ENCOUNTER 2021-10-01 16:32 | Outpatient (CLI) | payer MEDICARE, SELFPAY ==
--- NOTE | 2021-10-01 | IMM_PTH ---
PATIENT: NESTOR MONTES DE OCA I LOC: [facility] U#:[id number] AGE/SX: 86/F ROOM: RE10/01/[address]: Dr. Zahida Arroyo MD : [id number] BED: DIS: 10/01/2021 SPEC #: [id number] RECD: 10/06/21 13:18 STATUS: ERNIE REQ #: [id number] LAVELL: 10/01/21 00:[address]: Zahida Arroyo DEPT: IMMUNOHISTOCHEMISTRY RECD BY: Marely Ji ENTERED: 10/06/21 13:21 SP TYPE: IMMUNO OTHR DR: Dr. Waqas Palma MD Tissues: B - Left breast, NOS C - Axilla, NOS Procedures: E-CAD (initial) CALPONIN-1 (add) CK5-6 (add) CK8 (add) OSORIO-2 (add) ER (add) HER2 JULI (add) KI-67 (add) MAMM (add) P53 (add) RI (add) Pankeratin (add) GATA3 (add) P40 (add) PHYSICIAN & INSTITUTION [address] [address] SPECIMEN INFORMATION: Tissue Source: B ? Left breast, 2 o?clock, +8, C ? Left axilla Clinical Info: Breast masses Specimen Number: [id number] B & C CPT code: 36945 x2, 00991 x11, 88803 x3 METHODOLOGY: Deparaffinized sections of prefer/formalin-fixed tissue or PAP/DQ stained slides are incubated with monoclonal/polyclonal antibodies/oligonucleotide probes. Localization is made via biotin free immunoperoxidase method. Appropriate controls are performed and reacted as expected. Results on target cell population are indicated in the following table: RESULTS: ANTIBODY / CLONE RESULT Block B P53 (DO-7) negative Ki-67 (30-9) positive, 55% CK8 ([id number]) positive CK5-6 (D5 & 1684) negative Calponin-1 (AB308L) negative P40 (BC28) negative E-Cad (ECH-6) positive OSORIO-2 (SP21) negative MORPHOMETRIC ANALYSIS ER (clone 6F11) >95%, strong RI (clone 16/1E2) 90%, strong Her-2Neu (clone CB11) 0 Block C GATA3 (L50-823) positive Mammaglobin (31A5) positive AE1-3 (AE1/AE3/PCK26) positive E-Cad (ECH-6) positive P53 (DO-7) negative The prognostic test for HER2 is performed on formalin-fixed paraffin embedded tissue. A 3+ (positive) staining pattern is defined as intense, homogeneous, complete, circumferential membranous staining in >10% of contiguous tumor cells. A similar weak (2+) staining pattern is interpreted as equivocal. STUART follow-up testing is recommended for all equivocal cases. Positivity/negativity for ER/RI is reported if > or < 1% of the tumor cells are immuno- reactive, respectively. The ASCO/CAP criteria is used for scoring. Reference: Journal of Clinical Oncology, 2013; 31:6660-6218 & 2010; 16:3065-9433. Duration of fixation: 53 Hrs; Sample Adequate: Yes. These assays have not been validated on decalcified tissues. Results should be interpreted with caution given the likelihood of false negativity on decalcified specimens. These tests were developed and their performance characteristics determined by [facility]. They may not have been cleared or approved by the U.S. Food and Drug Administration. The FDA has determined that such clearance or approval is not necessary. The above immunohistochemical/dualISH markers are ordered and reviewed by the Pathologist. INTERPRETATION: B. Left breast, 2 o?clock, +8, biopsy: Invasive ductal carcinoma, nuclear grade 2. Positive for estrogen receptors (favorable prognostic indicator). Positive for progesterone receptors (favorable prognostic indicator). Negative for overexpression of TFT1hin. C. Left axilla, biopsy: Metastatic breast carcinoma. AM:danial 10/07/2021
--- NOTE | 2021-10-01 14:40 | BRBX_PTH ---
PATIENT: NESTOR MONTES DE OCA I LOC: [facility] U#:[id number] AGE/SX: 86/F ROOM: RE10/01/[address]: Dr. Zahida Arroyo MD : 1935 BED: DIS: 10/01/2021 SPEC #: [id number] RECD: 10/01/21 15:42 STATUS: ERNIE REJuan Luis #: [id number] LAVELL: 10/01/21 14:[address]: Zahida Arroyo DEPT: SURGICAL PATHOLOGY RECD BY: Megan So ENTERED: 10/05/21 10:19 SP TYPE: BREAST BX OTHR DR: Dr. Waqas Palma MD Tissues: A - Left breast, NOS B - Left breast, NOS C - Axilla, NOS Procedures: Surgery Specimen Level IV HEADER OPERATION: Left breast and left axillary biopsy PRE-OP DIAGNOSIS: Breast masses TISSUE SUBMITTED: A ? Punch biopsy left breast, B ? Left breast 2 o?clock +8, C ? Left axilla MICROSCOPIC DIAGNOSIS A. Left breast skin and soft tissue, punch biopsy: Minimal nonspecific chronic inflammation. B. 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 2/3 Maximal length ? 10.5 millimeters. See comment. C. 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 2/3 Maximal length ? 8.5 millimeters. See comment. AM:danial 10/06/2021 COMMENT B. Immunohistochemistry ([id number]) supports the above diagnosis. C. Lymph node is not identified. Clinical correlation is suggested. Immunohistochemistry ([id number]) supports the above diagnosis. Reference is made to the patient's previous left breast, needle core biopsy from 2012 ([id number]) in which ductal carcinoma in situ was identified. This case is discussed with Dr. Arroyo 10/06/[address] Howe. Case has been reviewed in consultation with Dr. Campo who concurs with the above diagnosis. IDC:SJ MICROSCOPIC DESCRIPTION Slides are reviewed. GROSS DESCRIPTION A - Received in fixative is one container labeled with the patient's name and designated punch biopsy left breast. The specimen consists of a piece of punch biopsy of boykin-white skin measuring 0.4 cm in diameter and 0.5 cm in length. B - Received in fixative is one container labeled with the patient's name and designated left breast. The specimen consists of two elongated pieces of boykin-yellow fibroadipose tissue each measuring 1.5 cm in length and 0.1 cm in diameter. The entire specimen is submitted in one cassette. C - Received in fixative is one container labeled with the patient's name and designated left axilla. The specimen consists of multiple elongated pieces of boykin-yellow adipose tissue measuring in aggregate 1.2 x 0.2 x 0.1 cm. The specimen is totally submitted in one cassette. / SJ:rg 10/05/2021 TC:0 CPT: 65812 x3
== END 2021-10-01 23:59 | disposition home or self-care (01) ==
LOC: LABSPEC 16:34
PROVIDERS: PCP Family Medicine; Visit Provider Surgery
DX: C50.412 Malignant neoplasm of upper-outer quadrant of left female breast (principal); C79.89 Secondary malignant neoplasm of other specified sites; Z17.0 Estrogen receptor positive status [ER+]
CPT/HCPCS: 88305; 88341; 88342

== ENCOUNTER → 2021-10-18 | Outpatient (CLI) | payer MEDICARE, SELFPAY ==
--- NOTE | 2021-10-18 16:34 | CT_ITS ---
EXAM: CT CHEST, ABDOMEN AND PELVIS WITH INTRAVENOUS CONTRAST CLINICAL INDICATION: STAGING BREAST CANCER Technologist Notes STAGING BREAST CA-LT SIDE, LEFT LUMPECTOMY 10 YRS AGO WITH RAD TX, RECENT BX, PARTIAL HYSTER, APPY, COLON CA WITH PARITAL COLECTOMY TECHNIQUE: Helically acquired images were obtained of the chest, abdomen and pelvis with intravenous contrast. This CT exam was performed using one or more of the following dose reduction techniques: automated exposure control, adjustment of the mA and/or kV according to patient size, and/or use of iterative reconstruction technique. This report was created using [employer] technology. CONTRAST: Oral and amp; IV Readi-CAT and amp; 100mL Isovue-370 RADIATION DOSE: CTDIvol = 18.61 mGy, DLP = 1568.82 mGy-cm COMPARISON: None. FINDINGS: CHEST: LUNGS AND PLEURAL SPACES: See below. HEART: There are calcifications of the coronary arteries. Heart size is normal. No pericardial effusion. MEDIASTINUM: Unremarkable. No mediastinal or hilar adenopathy. Esophagus is unremarkable. No hiatal hernia. THYROID: The thyroid is heterogenous. It contains nodules. This should be further evaluated with ultrasound. This can be performed as an outpatient. ABDOMEN: LIVER: Unremarkable. Homogeneous. No focal mass. GALLBLADDER AND BILE DUCTS: Unremarkable. No calcified gallstones. No gallbladder distention or wall edema. No intra- or extrahepatic biliary ductal dilation. PANCREAS: Unremarkable. No focal cystic or solid mass. SPLEEN: Unremarkable. Normal size without focal cystic or solid mass. ADRENALS: Normal bilateral adrenal glands. KIDNEYS AND URETERS: 96 x 108 mm dense lesion of the inferior left kidney. This is 55 HOUNSFIELD units. This does not correlate with a simple cyst. ACR White Paper guidelines (Pranav, et al. JACR 2018; 15(2):264-273) recommend MRI or CT without and with intravenous contrast. There are hypodensities in the right kidney. These are consistent for cysts. No follow up required. There is a superior hypodensities in the left kidney. These are consistent for cysts. No follow up required. Normal renal size and position. STOMACH AND BOWEL: There are multiple colonic diverticula consistent with diverticulosis. No stomach or bowel distention. No focal inflammatory change. PELVIS: APPENDIX: There is non-visualization of the appendix. BLADDER: Unremarkable. REPRODUCTIVE: There is absence of the uterus consistent with a prior hysterectomy. CHEST, ABDOMEN and PELVIS: INTRAPERITONEAL SPACE: Unremarkable. No ascites or other fluid collection. No free air. BONES/JOINTS: There are degenerative changes of the shoulders. There is no pneumothorax. There is no demonstrated pleural abnormality. There are multi-level degenerative changes of the thoracic spine. Degenerative findings of the hips. There are diffuse degenerative changes of the visualized lumbar spine. There is bilateral neural foraminal stenosis at L4-5 and L5-S1. No suspicious lytic or blastic abnormality. SOFT TISSUES: Unremarkable. No discrete abdominal or pelvic wall hernia. VASCULATURE: There is atherosclerotic calcification of the aortic arch with tortuosity and elongation of the aortic arch and descending thoracic aorta. There are calcifications of the abdominal aorta. This is consistent for atherosclerotic disease. There is no abdominal aortic aneurysm. No aortic dissection. No obvious central pulmonary embolism although this study was not performed with the pulmonary embolism protocol. LYMPH NODES: There is left axillary adenopathy. CT/CT Chest, Abd, Pel w/Contrast IMPRESSION: 1. The thyroid is heterogenous. It contains nodules. This should be further evaluated with ultrasound. This can be performed as an outpatient. 2. There is left axillary adenopathy. Left breast is poorly visualized because extends off the field of view. 3. 96 x 108 mm dense lesion of the inferior left kidney. This is 55 HOUNSFIELD units. This does not correlate with a simple cyst. ACR White Paper guidelines (Herlamine, et al. JACR 2018; 15(2):264-273) recommend MRI or CT without and with intravenous contrast. 4. There are multiple colonic diverticula consistent with diverticulosis. Electronically Signed: Louie Grimes MD at 20:58 EDT ,
[2021-10-18 17:05] LABS: CREATININE FINGERSTICK < 0.9 mg/dL (0.55-1.02); EGFR FINGERSTICK > 60.0000 mL/min (>60)
== END | disposition home or self-care (01) ==
LOC: CT 16:32
PROVIDERS: PCP Family Medicine; Referring Provider Internal Medicine Medical Oncology; Visit Provider Internal Medicine Medical Oncology
DX: C50.912 Malignant neoplasm of unspecified site of left female breast (principal)
CPT/HCPCS: 71260; 74177; Q9967; A4216

== ENCOUNTER → 2021-10-21 | Outpatient (CLI) | payer MEDICARE, SELFPAY ==
--- NOTE | 2021-10-21 09:16 | NM_ITS ---
CLINICAL: Female, 86 years old. STAGING BREAST CA RECTANYA DAWN LEFT SIDE WHOLE BODY NUCLEAR BONE SCAN TECHNIQUE: Following the IV administration of 27 mCi of Tc MDP, whole body bone imaging was performed with a gamma camera following a three hour delay. COMPARISON STUDIES : NM - None. CR - Not available for review at this time. CT - Not available for review at this time. MR - Not available for review at this time. US - Not available for review at this time. FINDINGS: Increased radiopharmaceutical uptake is seen at the level of both knee joints suggestive of degenerative changes. Mild increased uptake is also seen at the level of the tarsal bones of the left foot. Decreased radiopharmaceutical uptake in the left kidney incompletely large cystic mass seen on CT scan. NM/Bone Scan Whole Body IMPRESSION: No evidence of a bony metastasis. Electronically Signed: Chente Alcaraz MD at 13:59 EDT ,
== END | disposition home or self-care (01) ==
LOC: NM 09:15
PROVIDERS: PCP Family Medicine; Referring Provider Internal Medicine Medical Oncology; Visit Provider Internal Medicine Medical Oncology
DX: C50.912 Malignant neoplasm of unspecified site of left female breast (principal)
CPT/HCPCS: 78306; A9503

== ENCOUNTER → 2021-10-26 | Outpatient (CLI) | payer MEDICARE, SELFPAY ==
--- NOTE | 2021-10-26 13:50 | ECHODONC_ITS ---
Reason For Study: BREAST CANCER Procedure This was a 2D Doppler, Color Flow transthoracic echocardiogram. Myocardial strain analysis was performed in this exam to aid in the assessment of cardiac function. The study was technically difficult. PT had difficulty tolerating probe pressure and was unable to lie in LLD position due to left hip pain. ]Exam performed with PT in supine position. Exam performed in department. Left Ventricle Normal LV size. Left ventricular systolic function is normal. The estimated ejection fraction is 60 %. The global longitudinal strain = -16% (borderline). No evidence for diastolic dysfunction. No regional wall motion abnormalities noted. Right Ventricle Normal RV size. Normal systolic function. Atria The left atrium is mildly enlarged. Normal right atrium. No doppler evidence for ASD. Mitral Valve There is no mitral annular calcification. Normal mitral valve. Mild (1+) mitral valve insufficiency. Tricuspid Valve Normal tricuspid valve. Trivial tricuspid valve insufficiency. Right ventricular systolic pressure estimated to be 30 mmHg. Aortic Valve Trisinus/trileaflet aortic valve. Normal aortic valve. Pulmonic Valve The pulmonic valve is not well visualized. Great Vessels Normal sized aortic root. Calcified aortic root. Pericardium/Pleural No pericardial effusion. MMode/2D Measurements & Calculations LVIDd: 5.4 cm IVSd: 0.72 cm Ao root diam: 3.0 cm LVIDs: 3.6 cm LVPWd: 0.83 cm RVDd: 3.2 cm FS: 33.7 % LAV(MOD-bp): 82.9 ml LA A4 area: 24.9 cm2 LA dimension(2D): 4.5 cm LAV(MOD-bp) Indexed: 49.4 ml/m2 LAV(MOD-sp2): 76.0 ml LAV(MOD-sp4): 80.0 ml RA A4 area: 12.6 cm2 Time Measurements MV dec time: 0.17 sec Doppler Measurements & Calculations MV E max andrez: 88.6 cm/sec Lat Peak E' Andrez: 12.1 cm/sec Med Peak E' Andrez: 9.4 cm/sec MV A max andrez: 82.3 cm/sec E/E' lat: 7.3 E/E' med: 9.4 MV E/A: 1.1 MV dec slope: 535.0 cm/sec2 Ao V2 max: 155.1 cm/sec LV V1 max: 79.7 cm/sec Ao max P.6 mmHg LV V1 max P.6 mmHg Ao V2 mean: 114.7 cm/sec Ao mean P.9 mmHg Ao V2 VTI: 43.0 cm PA V2 max: 113.9 cm/sec TR max andrez: 259.9 cm/sec TR max P.0 mmHg ECHO/ONC Echo Complete Interpretation Summary The study was technically difficult. Left ventricular systolic function is normal. The estimated ejection fraction is 60 %. The global longitudinal strain = -16% (borderline). The left atrium is mildly enlarged. Mild (1+) mitral valve insufficiency. Trivial tricuspid valve insufficiency. Calcified aortic root. Right ventricular systolic pressure estimated to be 30 mmHg. No evidence for diastolic dysfunction. Ordering Physician: Alonzo John Referring Physician: Waqas Palma Performed By: Dalia Ibarra, ROSIE, RVT
== END | disposition home or self-care (01) ==
LOC: CVS 13:50
PROVIDERS: PCP Family Medicine; Visit Provider Internal Medicine Medical Oncology
DX: Z01.818 Encounter for other preprocedural examination (principal); C50.919 Malignant neoplasm of unspecified site of unspecified female breast; I34.0 Nonrheumatic mitral (valve) insufficiency
CPT/HCPCS: 93306; 93356

== ENCOUNTER 2022-01-04 10:13 | Observation (INO) | payer MEDICARE, SELFPAY ==
--- NOTE | 2021-12-30 08:17 | EKG12_ITS ---
Test Reason : PRE-OP Blood Pressure : / mmHG Vent. Rate : 082 BPM Atrial Rate : 082 BPM P-R Int : 176 ms QRS Dur : 072 ms QT Int : 368 ms P-R-T Axes : 082 -04 002 degrees QTc Int : 429 ms Normal sinus rhythm Normal ECG Confirmed by JAIRO KINNEY, SYDNIE ([id number]), brands editor MARCUS VARELA ([id number]) on 12/31/2021 10:08:58 A M Referred By: Zahida Arroyo Confirmed By:LIZ GILL MD
[2022-01-04] VITALS (10 sets, daily range): BP systolic 118–171; BP diastolic 54–73; PULSE 71–91; RESP 16–18; TEMP 36.4–36.8; O2SAT 92–100; BMI 34.0
[2022-01-04] MEDS: Lactated Ringers 1,000 ML 15 ML IV (07:01)
--- NOTE | 2022-01-04 07:10 | PCM.HP.BLA ---
History and Physical Date of Admission: 01/04/22 Date of Service:? 12/15/21 MR#: [id number] Acct: [id number] Name:NESTOR IBARRA I Rep #: [id number] : 1935 ? ? Provider: Dr. Zahida Arroyo MD Age/Sex:? 86/F ? ? Location: [facility] Status: Signed Intake Vital Signs ? 12/15/2212:06 Height 4 ft 10 in Weight: 162 lb BMI 33.8 BP 127/68 H Blood Pressure Location Rt brachial Position Sitting Respiration 16 Pulse 82 Pulse Source Monitor Temp 97.4 F L Temp Source Temporal Pulse Oximetry (%) 100 Oxygen Delivery Method room air Intake Visit Reasons:?Discuss mastectomy, update H&P Chief Complaint: Discuss options/ Update H&P Sports Teacher Required: No Accompanied by: Daughter Is patient in pain?: No Allergies sulfamethoxazole [From Decra] Allergy (Intermediate, Verified 12/15/21 13:09) Dizzinesstrimethoprim [From Decra] Allergy (Intermediate, Verified 12/15/21 13:09) DizzinessPenicillins [PCN] Allergy (Verified 12/15/21 13:09) Swellingerythromycin base Adverse Reaction (Verified 12/15/21 13:09) Nausea Medications amlodipine 5 mg tablet 10 mg PO DAILY BP 03/05/20 [History Confirmed 12/15/21] aspirin 81 mg chewable tablet 81 mg PO DAILY@0800 HEART HEALTH 03/05/20 [History Confirmed 12/15/21] cholecalciferol (vitamin D3) 50 mcg (2,000 unit) capsule 2,000 unit PO DAILY SUPPLEMENT 03/05/20 [History Confirmed 12/15/21] cranberry extract-vitamin C 250 mg-60 mg capsule 2 ea PO DAILY URINARY HEALTH 03/05/20 [History Confirmed 12/15/21] hydrochlorothiazide 25 mg tablet 25 mg PO DAILY BP 03/05/20 [History Confirmed 12/15/21] lisinopril 20 mg tablet 20 mg PO DAILY BP 03/05/20 [History Confirmed 12/15/21] omeprazole 20 mg delayed release,disintegrating tablet 20 mg PO DAILY GERD 03/05/20 [History Confirmed 12/15/21] oxybutynin chloride 5 mg tablet 5 mg PO DAILY BLADDER 03/05/20 [History Confirmed 12/15/21] PFSH Medical History? Arthritis Back problem Breast cancer Constipation GERD (gastroesophageal reflux disease) HTN (hypertension) Surgical History? History of breast biopsy (~10/2021) History of History of hysterectomy History of lumpectomy of left breast History of lymph node biopsy (~10/2021) Family History? Mother Myocardial infarction DiabetesFather Myocardial infarction DiabetesSister Colon cancerAunt Cancer ?? ? Breast Social History? household members:? spouse and other details: daughter and son-in-law, grandchildren housing:? house Smoking Status:? Never smoker alcohol intake:? current alcohol intake frequency: a few times a week Alcohol type: wine what type of physical activity do you participate in:? none do you feel safe at home:? Yes HPI HPI HPI: 86-year-old female presents for discussion of surgery for left breast cancer with left axillary lymph node metastasis.? Patient's biopsy was back in September however oncology was concerned about possible left kidney mass that could be cancerous.? Patient was referred back to urology, who states this has been a cyst he has been following not concern for cancer.? Patient has not been on any antihormone therapy during this time.? Patient would prefer to have a lumpectomy if possible.? 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 And would prefer not to do it to the axilla as well ROS General General: Yes breast cancer; No weight change, appetite, fatigue or colon cancer HEENT HEENT: No difficulty swallowing, eye injury, eye surgery, swollen glands or hoarseness Endo Endocrine: No thyroid disease, diabetes mellitus, thyroid cancer, Hair loss, heat intolerance or cold intolerance Skin Skin: No rash or changing moles Breast Breast: No left breast lump, right breast lump, nipple discharge, breast pain, abnormal mammogram, abnormal US or breast enlargement Additional Details: Thickening skin left breast Musc Musculoskeletal: Yes back problems and arthritis; No rheumatoid arthritis, gout or joint pain Cardio Cardiovascular: Yes high blood pressure; No murmur, pacemaker, heart disease, atrial fibrillation, heart attack, heart stent, palpitations, shortness of breat with exertion or chest pain Psych Psychiatric: No depression, anxiety or hearing voices Resp Respiratory: No shortness of breath, No sleep apnea, No cough, No COPD, No asthma, No emphysema and No wheezing Gastro Gastrointestinal: No abdominal pain, No nausea or vomiting, No diarrhea, Yes constipation, No blood in stool, Yes acid reflux, No hemorrhoids, No ulcers, No gallbladder problem and No black,tarry stools Dilan Hematologic: No blood thinners, No blood disorders, Yes bleeding, No anemia and Yes blood clots Neuro Neurologic: No confusion Exam Const General: cooperative, healthy appearing, comfortable and no acute distress HENMT Head: normocephalic and atraumatic Chest Other: Breast inspection: Thickening of the skin to the left lateral/inferior breast Left breast: Thickening of the skin laterally/inferiorly about 20 cm x 8 cm, no obvious masses able to be appreciated on exam due to the thickening of the skin. Left axillary adenopathy?previously biopsied positive for metastatic disease Resp Effort & Inspection: normal respiratory effort Cardio Rate: regular rate Neuro General: patient oriented x3 Psych Affect: normal affect Assessment and Plan Assessment and Plan (1) Invasive ductal carcinoma of left breast: ?Status:?Acute ?Comment: L breast cancer invasive ductal type, grade 2/3, ER/NJ positive, Her2 negative, multifocal disease with L axillary metastasis-Locally advanced disease. Clinically stage IIA(cT1 cN1 M0) Discussed disease status, new Kidney mass in addition to old cyst. She can start neoadjuvant hormonal therapy while Probable L kidney cancer is addressed. (2) Axillary lymphadenopathy: ?Status:?Acute ?Comment: left initially seen on MRI Plan Details Additional Comments: I have given the patient options for initial surgical treatment. Options are the following: mastectomy vs. mastectomy followed by immediate reconstruction. I have described the procedures to the patient. I have described the advantages and disadvantages of the options, but I have told the patient that among the options, the survival rate for breast cancer is the same.? Patient is unable to have a lumpectomy due to the extensive changes in multiple foci as well as previous history of radiation to her left breast due to the DCIS. I have told the patient that a full lymph node dissection will be recommended to hopefully avoid any chemotherapy or any need for any further radiation as she is already had radiation to her left breast in 2010 due to DCIS.? Patient does have known node positive disease per biopsy.? Due to patient's age not planning for neoadjuvant chemotherapy prior to surgery.? Discussed that with the axillary lymph node dissection there could be a risk for lymphedema risk for lymphedema, especially if there are 4 or more lymph nodes positive for metastatic disease and radiation to the axilla may also be considered. I have told the patient the risks of surgery, including but not limited to: infection, bleeding, scar tissue, seroma and persistent seroma, lymph leak, injury to any blood vessels, injury to any nerves (particularly the long thoracic, the thoracodorsal, and the second intercostal brachial and the resultant sequelae), lymphedema, cosmetic deformity, dysesthesias, wound infections, further surgery (especially if margins are not clear), complications of anesthesia, etc.? the patient understands.? Patient is agreeable with left mastectomy and axillary lymph node dissection.? Patient preferred to wait to schedule until January as she states she needs to talk to her seasoner hand about her will and also appoint POA to her daughter.? Did discuss with radiation oncologist as well would prefer not to have to do any radiation to the axilla if it can be prevented however if there are multiple positive nodes he would consider I have answered all the patient?s questions at this point to her satisfaction and she has no further questions. Zahida Arroyo M.D. Pager: [phone] [facility] [address] [place] [address], [address] [place] [address] Office: [phone] Coding Level of Care Code Off vis,est,level 5 Diagnoses Invasive ductal carcinoma of left breast? C50.912 Axillary lymphadenopathy? R59.0 12/16/21 1113 <Electronically signed by Zahida Arroyo MD> Date Zahida Arroyo MD
[2022-01-04] MEDS: Clindamycin 900 MG/50 ML BAG 75 MG IV (08:01)
--- NOTE | 2022-01-04 09:34 | AXNB_PTH ---
PATIENT: NESTOR MONTES DE OCA I LOC: MS3 U#:[id number] AGE/SX: 86/F ROOM: [facility]323 RE01/04/[address]: Dr. Zahida Arroyo MD : [id number] BED: 1 DIS: 01/05/2022 SPEC #: [id number] RECD: 01/04/22 09:36 STATUS: ERNIE ISAAC #: [id number] LAVELL: 01/04/22 09:[address]: Zahida Arroyo DEPT: SURGICAL PATHOLOGY RECD BY: Melva Byers ENTERED: 01/04/22 10:11 SP TYPE: AX NODE BX OTHR DR: Dr. Waqas Palma MD Tissues: A - Axillary lymph node, NOS B - Left breast, NOS Procedures: Surgery Specimen Level IV Surgery Specimen Level V HEADER OPERATION: Mastectomy, axillary node dissection PRE-OP DIAGNOSIS: Invasive ductal carcinoma of left breast, axillary lymphadenopathy TISSUE SUBMITTED: A ? Left axillary nodes contents, B - Left axillary nodes contents, additional, C ? Left mastectomy, long stitch ? lateral, short stitch - superior MICROSCOPIC DIAGNOSIS A. Left axillary nodes contents: 18 out of 23 lymph nodes, positive for metastatic carcinoma. See comment. B. Left axillary nodes and contents: One lymph node, positive for metastatic carcinoma. C. Left mastectomy: Multifocal invasive ductal carcinoma. See cancer summary in the comment section. SJ:danial 01/10/2022 COMMENT A. The largest lymph node is almost completely replaced by metastatic tumor and measures 2.5 cm in greatest dimension. Extranodal extension is noted and measures 0.9 cm in greatest dimension. The metastatic tumor shows higher grade than the tumor in the breast. Histologic grade for metastatic tumor (Delta histologic score) is as follows: nuclear grade - 3, tubule formation score - 3 and mitotic score 3, overall score 3 (score of 9. INVASIVE BREAST CANCER SUMMARY: Procedure ? total mastectomy Specimen laterality - left Tumor: Site - central Size ? largest tumor 3 x 2 x 2 cm Histologic type - invasive ductal carcinoma, no special type. Histologic Grade (Korina grade): Glandular/tubular differentiation - score 3 Nuclear pleomorphism - score 2 Mitotic count ? score 1 Overall grade - 2 (score of 6) Tumor focality ? multiple foci of invasive carcinoma. Number of foci ? at least 7 Size of individual foci ? the largest tumor measures 3 cm in greatest dimension and additional small tumors measure 0.4 to 2 cm in greatest dimension. Ductal carcinoma in situ ? present Negative for extensive intraductal component (EIC). Size (extent) of DCIS ? DCIS comprise <1% of total tumor volume. Architectural pattern ? solid and comedo Nuclear grade - grade 2 (intermediate) Necrosis - present, central (expansive comedo necrosis) Lobular carcinoma in situ ? not identified Tumor extension: Skin ? skin is present and uninvolved. Nipple ? DCIS does not involve the nipple epidermis (tumor shows focal area of invasive tumor in the deeper portion of the nipple) Skeletal muscle ? no skeletal muscle is present. Margins: Invasive carcinoma and ductal carcinoma in situ are at least 4 cm away from the closest posterior margin. Regional lymph nodes: Total number of lymph nodes examined - 24 Total number of lymph nodes with macrometastases ? 19 Total number of lymph nodes with micrometastases and isolated tumor cells - 0 Size of largest metastatic deposits ? 2.5 cm Extranodal extension ? present, largest focus of extranodal extension measures 0.9 cm in greatest dimension. Treatment effect - no known presurgical therapy. Lymphvascular invasion - present Dermal lymphvascular invasion ? not identified Additional Pathologic Findings ? - intraductal hyperplasia without atypia. - Hyalinized fibroadenoma (1.0 cm in greatest dimension, measured microscopically) with focal calcifications. It is present adjacent to the one of focus of invasive tumor. Ancillary Studies: Previously performed on same tumor ([id number] / [id number]) ER: positive (>95%, strong intensity) IN: positive (90%, strong intensity) [id number]: negative (0) Microcalcifications ? present in invasive carcinoma and non-neoplastic tissue Clinical History - Please make reference to previous specimen ([id number]), left breast at 2 o?clock, core biopsy with diagnosis of ?invasive ductal carcinoma? and left axilla, core biopsy with diagnosis of ?invasive ductal carcinoma.? PATHOLOGIC STAGE: pT2(m) pN3a pMx The above summary is in compliance with [employer] (CAP) Cancer Protocols Checklist and [place] Joint Committee on Cancer (AJCC), Staging Manual, 8th Ed. Case has been reviewed in consultation with Dr. Howe who concurs with the above diagnosis. IDC:AM MICROSCOPIC DESCRIPTION Slides are reviewed. GROSS DESCRIPTION A - Received fresh labeled with the patient's name and designated left axillary nodes and contents, clip node was positive. The specimen consists of two pieces of yellow adipose tissue measuring 13 x 6 x 4 cm and 5 x 3 x 2 cm. Sections reveal multiple nodules consistent with lymph nodes. The largest lymph node with clip measures 2.5 cm in greatest dimension. The lymph nodes are submitted in entirety in 14 cassettes as follows: 1-3 - largest lymph node, 4 & 5 - second largest lymph node, 6-10 - each cassette containing one lymph node, 11-14 - each cassette containing multiple lymph nodes. Sections are submitted after additional fixation. / SJ:danial 01/04/2022 B - Received in fixative is one container labeled with the patient's name and designated left axillary node and contents. The specimen consists of an irregular piece of adipose tissue measuring 3.5 x 3 x 0.5 cm. One nodule consistent with lymph node is noted measuring 1 cm in greatest dimension. The lymph node is bisected. Eap Specialist sections are submitted in one cassette as follows: 1 - one bisected lymph node, entirely submitted. / SJ:danial 01/04/2022 C - Received in fixative is one container labeled with the patient's name and designated left mastectomy, long stitch - lateral, short stitch - superior. The specimen consists of a mastectomy specimen consisting of breast tissue with overlying skin ellipse. The breast tissue measures 30 x 19 x 7 cm. The overlying skin ellipse measures 13 x 19 cm. The nipple measures 1 cm in greatest dimension. The specimen is inked as follows: posterior - black, superior - blue, inferior - green, medial - red and lateral - orange. No skin lesion is identified. More dictation will follow after fixation. / SJ:danial 01/04/2022 Serial sections reveal five boykin indurated masses in the central portion of the breast. Largest mass measures 3 x 2 x 2 cm. Second largest mass measures 2 x 1 x 2 cm. Third mass measures 1 x 1 x 0.5 cm. Fourth mass measures 1 x 1.5 x 1 cm. Fifth mass measures 1 x 1 x 0.5 cm. All these masses are 4 to 5 cm away from the closest posterior margin. Sections of the rest of the specimen reveal boykin-yellow adipose cut surfaces mixed with boykin-white fibrous areas. Eap Specialist sections are submitted in 20 cassettes as follows: 1 - nipple, entirely submitted, 2 - perpendicular medial, lateral and superior margins, 3 - perpendicular inferior and posterior margins and skin, 4-6 - largest tumor, 7 - screening representative section adjacent to the largest tumor, 8-10 - second largest tumor, entirely submitted, 11 - screening representative section adjacent to the second largest tumor, 12 & 13 - third tumor, entirely submitted, 14 & 15 - fourth tumor, entirely submitted, 16 - fifth tumor, entirely submitted, 17-20 - screening representative sections away from the tumor. Sections are submitted after additional fixation. / BISMARK:danial 01/05/2022 TC:0 CPT: 24681d2
--- NOTE | 2022-01-04 09:36 | BI_ITS ---
SURGICAL BREAST SPECIMEN RADIOGRAPH CLINICAL: Document presence of mass in biopsy specimen. FINDINGS: Specimen shows presence of mass. Electronically Signed: Chente Alcaraz MD at 11:01 EDT , BI/Breast Biopsy Specimen IMPRESSION: undefined
[2022-01-04] MEDS: 0.9% Normal Saline 1,000 ML 15 ML IV (10:00)
--- NOTE | 2022-01-04 10:05 | PCM.OPRPT ---
Report of Operation Date of Procedure: 01/04/22 Pre-Operative Diagnosis: Left breast cancer with left lymph node metastasis Post-Operative Diagnosis: Same Surgery/Procedure Performed:: Left mastectomy with left axillary lymph node dissection Surgeon: Zahida Arroyo creative services designer: Jennifer Diaz Type of Anesthesia: General/Supplemental Anesthesiologist: Donato Sanchez Special Medications: Clindamycin 900 mg IV x1 Specimen's removed: 1. Left mastectomy, 2. Left axillary contents, 3. Additional left axillary contents Drains: 2 JUNE 15 Georgian round Estimated Blood Loss (mL): 20 cc Fluids Replaced: Per anesthesia Description of Procedure: Synoptic Portion: Element Response Options Operation performed with curative intent. Yes Resection was performed within the boundaries of the axillary vein, chest wall (serratus anterior), and latissimus dorsi. Yes Nerves identified and preserved during dissection (select all that apply) Long thoracic nerve; Thoracodorsal nerve; Branches of the intercostobrachial nerves Level III nodes were removed. No Description of procedure: The left breast and axilla were prepped and draped in usual sterile fashion. A timeout was completed verifying correct patient, procedure, site, positioning, special equipment prior to beginning procedure. Skin incision was made that encompassed the nipple areolar complex and the previous biopsy scar and edematous tissue which is extended more laterally in a generally oblique direction across the breast. Flaps are raised in the avascular plane between the breast and flap, from the clavicle superiorly, the sternum medially, the anterior rectus sheath inferiorly, and posterolateral border of the pectoralis major muscle laterally. Hemostasis was achieved in the flaps. Next, the breast tissue and underlying pectoralis fascia were excised from the pectoralis major muscle, progressing from medial to laterally. At the lateral border of the pectoralis major muscle, the breast tissue was swung laterally and the lateral pedicle identified with the breast tissue gave way to the fat of the axilla. The lateral pedicle was incised and the specimen removed and oriented for pathology. The wound was irrigated and hemostasis was achieved. Next began the axillary lymph node dissection, the borders of the axillary vein, latissimus dorsi, serratus anterior are identified. The intercostobrachial, long thoracic and thoracodorsal nerves are also identified and protected throughout the dissection. All the nodes within these borders are removed and sent to pathology. The specimen was oriented and sent to radiology for x-ray to confirm the clip node. This was confirmed. The cavity was irrigated with sterile water. Hemostasis was checked. Closed suction drains- JUNE 15 Fr round x 2-- were brought into the operating field through a separate stab incision and sutured to skin with 3-0 nylon suture. The incision was closed with interrupted sutures of 2-0 Vicryl and subcuticular sutures of 4-0 Monocryl. Steri-Strips and Telfa and gauze fluffs and Piero wrap were placed. The patient tolerated procedure well was taken to the postanesthesia care in stable condition Complications none
[2022-01-04] MEDS: 0.9% Normal Saline 1,000 ML 100 ML IV ×3 (12:29→16:43)
[2022-01-04] MEDS: Acetaminophen 325 MG Tablet 650 MG PO (14:17)
[2022-01-04] MEDS: traMADol 50 MG Tablet PO (22:44)
[2022-01-05] MEDS: Acetaminophen 325 MG Tablet 650 MG PO ×2 (00:48→11:08)
[2022-01-05 02:00] VITALS: BP 118/58; PULSE 70; RESP 16; TEMP 36.9; O2SAT 97
[2022-01-05] MEDS: 0.9% Normal Saline 1,000 ML 100 ML IV (02:19)
[2022-01-05 07:27] LABS: Absolute Lymphocyte Count 0.84 X10^3/uL (0.83-4.51); Absolute Neutrophil Count 10.1 X10^3/uL (2.0-7.7); Basophil# 0.01 X10^3/uL; Basophil% 0.1 % (0-1); Hemoglobin 10.2 g/dL (12.0-15.0); Lymphocyte # 0.84 X10^3/ul (0.83-4.51); Lymphocyte % 6.9 % (19-41); Mean Corp Hgb Conc 31.9 g/dL (32-36); Mean Corpuscular Hgb 29.7 pg (27.0-32.0); Mean Corpuscular Volume 93.3 fL (81-99); Mean Platelet Vol. 10.7 fl (6.2-12.0); Monocyte# 1.12 X10^3/uL; Monocyte% 9.3 % (0-10); NRBC Flagged by Analyzer 0 % (0-5); Neutrophil # 10.08 X10^3/uL (2.7-7.7); Neutrophil % 83.3 % (47-70); Platelet Count 260 K/mm3 (150-450); RBC Distribution Width CV 14.2 % (11.6-14.6); RBC Distribution Width SD 48.6 fl (35.1-43.9); Red Blood Count 3.43 M/mm3 (4.2-5.4); White Blood Count 12.1 K/mm3 (4.4-11.0)
--- NOTE | 2022-01-05 08:15 | PN.SURG_ITS ---
Subjective Subjective JPs are lightening in color still darker red serosanguineous, patient denies any left chest pain. Tolerating a diet Objective Data Objective Data Vital Signs: Vital Signs Temp Pulse Resp BP Pulse Ox O2 Del Method O2 Flow Rate 98.4 F 70 16 118/58 L 97 Room Air 2 01/05/22 02:00 01/05/22 02:00 01/05/22 02:00 01/05/22 02:00 01/05/22 02:00 01/05/22 02:00 01/05/22 02:00 Oxygen Flow Rate (L/min) 2 Oxygen Delivery Method Room Air Weight: 163 lb 2.273 oz Body Mass Index (BMI) 34.0 Intake & Output: Intake and Output for Last 24 Hours 01/03/22 01/04/22 01/05/22 23:59 23:59 23:59 Intake Total 1525.59 / 1825.59 1460 / 1460 Output Total 80 / 110 50 / 50 Balance 1445.59 / 1715.59 1410 / 1410 Lab / Micro Data Result Diagrams: 01/05/22 07:05 Labs: Laboratory Results - last 24 hr 01/05/22 07:05: WBC 12.1 H, RBC 3.43 L, Hgb 10.2 L, Hct 32.0 L, MCV 93.3, MCH 29.7, MCHC 31.9 L, RDW Std Deviation 48.6 H, RDW Coeff of Kierra 14.2, Plt Count 260, MPV 10.7, Immature Gran % (Auto) 0.400, Neut % (Auto) 83.3 H, Lymph % (Auto) 6.9 L, [place] % (Auto) 9.3, Eos % (Auto) 0.0, Baso % (Auto) 0.1, Absolute Neuts (auto) 10.1 H, Absolute Lymphs (auto) 0.84, Nucleated RBC % 0 Radiography Diagnostic Testing: Radiology Impression Breast Biopsy 01/04/22 09:36 IMPRESSION: undefined Physical Exam Narrative Left chest incision healing well with Steri-Strips placed. Couple Steri-Strips did come off laterally will replace. Piero wrap in place Resp normal respiratory effort Cardio regular rate Extremity Extremity Narrative: Patient denies any numbness or decreased motion of the left arm. Left arm does have a slightly edematous look to it however size white looks about the same as the right. Assessment & Plan Assessment/Plan (1) S/P left mastectomy: PLAN: Plan We will add a couple Steri-Strips laterally and redressed with ABD and Piero wrap. Continue JPs. We will have patient make follow-up appointment for Monday for likely 1 JUNE removal. Patient tolerating diet. Patient is able to ambulate well and vital signs remained stable will DC today. Zahida Arroyo M.D. Pager: [phone] [facility] [address] [place] [address], [address] [place] [address] Office: [phone]
[2022-01-05 08:35] VITALS: BP 140/50; PULSE 68; RESP 18; TEMP 36.8; O2SAT 97
[2022-01-05] MEDS: amLODIPine 10 MG Tablet PO (08:37)
[2022-01-05] MEDS: Lisinopril 20 MG Tablet PO (08:38)
[2022-01-05] MEDS: hydroCHLOROthiazide 25 MG Tablet PO (08:38)
--- NOTE | 2022-01-05 08:52 | DCINST_ITS ---
Discharge Instructions Diet Discharge Diet: No restrictions Activity Discharge Activity: May Not Drive (for 2-3 days or while taking narcotic pain meds.) May shower in (days): 1 Lifting Restrictions: 10 pounds for 1 week. Dressing / Incision Call your doctor if your incision/area has: Continuous Slow Oozing, Sudden Increased Bleeding, Increased Pain/ Swelling and Increased Redness Call your doctor if you observe: Fever of 101 or Higher Suture Line Care: Avoid Pulling/Pushing and Avoid Pinching/Bending Change Dressing in: 1 day Additional Dressing/Incision Instructions:: Okay to change the ABD pad daily and redress the Piero wrap. Avoid showering with the JPs in place. Okay to remove Steri-Strips from the breast incision in 7 to 10 days if they do not fall off on their own. Follow Up Care Please Follow Up With: Zahida Arroyo MD When: Please call [phone] for an appointment to be seen in Monday01/07/22 Test Results: Test results from this visit will be discussed in further detail at your follow- up appointment, if applicable. Discharge Plan Admission Admit Date/Time: 01/04/22 10:13 Attending Provider: Zahida Arroyo Primary Care Provider: Waqas Palma Discharge Orders/Prescriptions Prescriptions: New tramadol 50 mg tablet 50 mg PO Q6H PRN (Reason: pain) 3 Days Qty: 10 0RF Continued lisinopril 20 MG tablet 20 mg PO DAILY amlodipine 5 MG tablet 10 mg PO DAILY hydrochlorothiazide 25 MG tablet 25 mg PO DAILY oxybutynin chloride 5 MG tablet 5 mg PO DAILY cholecalciferol (vitamin D3) 50 MCG capsule 2,000 unit PO DAILY cranberry extract-vitamin C 1 EACH capsule 2 ea PO DAILY omeprazole 20 MG tablet,disintegrat, delay rel 20 mg PO DAILY Held aspirin 81 MG tablet,chewable 81 mg PO DAILY@0800 Hold Instructions: Resume on 01/08/22. Other Ambulatory Orders: 12 Lead EKG (Routine) Timeframe: 20211230 Location: None Selected Ordered By: Dr. Christian Mesa Referrals / Follow Up: Waqas Palma MD [Primary Care Provider] - Disposition Disposition (needs filled in before D/C Order can be placed): Home, Self Care
--- NOTE | 2022-01-05 09:58 | CASEMGMT ---
INEZ CM in to pt room, pt states she lives with her dtr and who are able to assist her at home and with the drains. She states her dtr has taken off work this week to assist. States her grandson is also coming home this weekend to stay with her. Pt has a walker at home. She denies any homegoing needs and states her pain is well controlled.
[2022-01-05 14:55] VITALS: BP 116/45; PULSE 60; RESP 18; TEMP 36.6; O2SAT 99
[2022-01-05] MEDS: traMADol 50 MG Tablet PO (15:15)
== END 2022-01-05 16:00 | disposition home or self-care (01) ==
LOC: SDC 10:47 → MS3 01-05 08:57
PROVIDERS: Admitting Provider Surgery; PCP Family Medicine; Referring Provider Surgery; Visit Provider Surgery
PROC: (CPT 19307; principal; 2022-01-04 07:15)
DX: C50.912 Malignant neoplasm of unspecified site of left female breast (principal); C77.3 Secondary and unspecified malignant neoplasm of axilla and upper limb lymph nodes; Z17.0 Estrogen receptor positive status [ER+]; Z79.899 Other long term (current) drug therapy; Z79.82 Long term (current) use of aspirin; M19.90 Unspecified osteoarthritis, unspecified site; K21.9 Gastro-esophageal reflux disease without esophagitis; I10 Essential (primary) hypertension; Z85.3 Personal history of malignant neoplasm of breast; N28.89 Other specified disorders of kidney and ureter; Z86.718 Personal history of other venous thrombosis and embolism
CPT/HCPCS: 19303; 38525; 36415; 76098; 85025; 88305; 88307; 93005; 96360; 96361; 99218; 99251; J7030; J7120; G0378; G0463; J2405

== ENCOUNTER → 2022-01-27 | Outpatient (CLI) | payer MEDICARE, SELFPAY ==
--- NOTE | 2022-01-27 12:31 | BD_ITS ---
STUDY: DUAL ENERGY X-RAY ABSORPTIOMETRY / DXA REASON FOR EXAM: Female, 87 years old. Evaluate bone density TECHNIQUE: Bone Mineral Density (BMD) measurements of lumbar spine and bilateral hips were obtained. COMPARISON: None. FINDINGS: Lumbar Spine (L1-L4): g/cm2 (1.289) / T-score (2.2) / Z-score (5.1) Findings are suggestive of normal bone density with a low fracture risk. Left Femur Total: g/cm2 (0.808) / T-score (-1.1) / Z-score (1.2) Left Femoral Neck: g/cm2 (0.634) / T-score (-1.9) / Z-score (0.6) Right Femur Total: g/cm2 (0.808) / T-score (-1.1) / Z-score (1.2) Right Femoral Neck: g/cm2 (0.854) / T-score (0.0) / Z-score (2.6) BD/Dexa Bone Density Study IMPRESSION: The patient is considered osteopenic as outlined below according to World [place] Organization (WHO) criteria with a moderate fracture risk. Reference Information: The T-score is the number of standard deviations above or below the standard which is normal for young adults at their peak bone mineral density. The World Health Organization (WHO) interprets the T-scores as follows: Above -1 Normal bone density Between -1 and -2.5 Osteopenia Equal to / or below -2.5 Osteoporosis As a practical clinical guideline, osteopenia may be graded as follows: Mild -1 through -1.5 Moderate -1.6 through -2.0 Severe -2.1 through -2.4 The Z-score is the number of standard deviations above or below age-matched controls. A Z-score of less than -1.5 would be considered abnormal. References: 1. NIH Osteoporosis and Related Bone Diseases www osteo.org 2. International Society for Clinical Densitometry www iscd.org 3. National Osteoporosis Foundation www nof.org Electronically Signed: Chente Alcaraz MD at 12:33 EDT ,
== END | disposition home or self-care (01) ==
LOC: OPBD 12:23
PROVIDERS: PCP Family Medicine; Referring Provider Internal Medicine Medical Oncology; Visit Provider Internal Medicine Medical Oncology
DX: M81.0 Age-related osteoporosis without current pathological fracture (principal)
CPT/HCPCS: 77080

== ENCOUNTER 2022-03-07 15:00 | Outpatient (RCR) | payer MEDICARE, SELFPAY ==
--- NOTE | 2022-02-16 16:32 | HP.OTEVAL_ITS ---
Patient's Visit Information NESTOR MONTES DE OCA is a 87 year old F, referred to Occupational Therapy by Dr. Alonzo John MD, with a diagnosis of lymphedema. Date of Evaluation: 02/16/22 Occupational Therapist: Sherry Olivera, OTR/Edgar, CHT - Subjective This 87 year old female was seen for OT eval with dx of s/p left mastectomy /lymphedema. Pt states she had her mastectomy on 2021 with 20 lymph nodes removed with 18+. pt is to have pet scan next week and will find out if radiation is needed-. pt arrives today because she has had swelling under her left arm and arm pit- pt states pmh (10 yrs ago) she had lumpectomy left breast with radiation- on the breast following the lumpectomy. - Lymphedema (Circumferential Measure) MCP: right 18cm left 18cm Wrist: right 15.5cm left 15cm Lower forearm: right 19cm left 20cm Largest forearm: right 24cm left 26cm Elbow: right 24.cm left 25cm Largest humerus: right 30cm left 36cm Axcillary: right 33cm left 33cm - Quick DASH-Disab of Arm,Shoulder& Hand Quick DASH Score: 25.0000 - Goals Demonstrate a 20% reduction in edema by d/c: Yes Demonstrate adequate knowledge of self-massage by 2nd week: Yes Demonstrate adequate knowledge skin care/prec by 2nd week: Yes Demonstrate adequate knowledge therapeutic exercises by d/c: Yes Select approp compression garment w/donning/care/wear by d/c: Yes Voice need to replace compression garment every 4-6mo by dc: Yes - Rehabilitation General Assessment: pt demo with left UE lymphedema stage I- pt demo need for skilled OT services 2-3 visits to ed. pt on life long mtg of lymphedema. Today therapist ed. pt on lymphatic system, skin care and beneficial lymph stimulation ex. pt was given handout and demo exercise correctly in the clinic. Therapist did rec'd compression sleeve 15-20mmHg due to pts thin skin the 20-30mmHg would be a risk to tear her skin donning the garment- therapist will get order for c ompression sleeve from to allow pt to get compression garment- therapy will cont. to ed. pt on self manual lymph massage as well as compression garments. pt demo understanding and family agree to POC. Rehabilitation Potential: Good - Anticipated Interventions Education re Diagnosis, Education re Life-long lymphedema Management, Education re Skin Care and Precautions, Education re Self Massage Techniques, Education re Correct Donning Tech,Care&Wearing Sched Comp Garments, Caregiver Training, Home Program - Visit Plan TEXT: Thank you for the opportunity to evaluate your patient. For Medicare and Medicare HMO plans, please review the plan of care and approve it. It will need to be FAXED BACK to us at [phone] for Medicare purposes. Please let me know if there are questions or concerns regarding this plan of care. Physician Signature: Date:
--- NOTE | 2022-08-02 07:57 | HP.OT.NRP ---
NESTOR MONTES DE OCA was seen in my office for initial evaluation on 02/16/22. The following Plan of Care was established for this patient: Plan: pt to have pet scar. cont with AROM. self massage. scar mtg Anticipated Interventions: Education re Diagnosis, Education re Life-long lymphedema Management, Education re Skin Care and Precautions, Education re Self Massage Techniques, Education re Correct Donning Tech,Care&Wearing Sched Comp Garments, Caregiver Training, Home Program This patient was last seen in our office 03/07/23. Pertinent comments regarding their Occupational therapy will appear below: pt was seen for 3 OT session. pt was given handouts on lymph stimulation ex., and ed on compression garment as well as how to perform self manual lymph massage. pt at this time has not returned for further OT session and is d/c due to time lapse in services. At this point I will be discontinuing this patient from occupational therapy. I would be happy to see this patient again in the future if found appropriate by the physician. Thank you! Sherry Olivera, OTR/L, CHT
== END 2022-03-07 19:00 | disposition home or self-care (01) ==
LOC: OT 15:00
PROVIDERS: PCP Family Medicine; Referring Provider Internal Medicine Medical Oncology; Visit Provider Internal Medicine Medical Oncology
DX: I89.0 Lymphedema, not elsewhere classified (principal); Z90.12 Acquired absence of left breast and nipple
CPT/HCPCS: 97110; 97140; 97166; 97530

== ENCOUNTER → 2022-09-16 | Outpatient (CLI) | payer MEDICARE, SELFPAY ==
--- NOTE | 2022-09-16 13:06 | RAD_ITS ---
INDICATION: Left hip pain EXAMINATION/TECHNIQUE: X-RAY - XR Hip Unilateral with Pelvis when performed; 2-3 Views COMPARISON: 03/04/2020 FINDINGS: PELVIC BONES: No displaced fracture, destructive or sclerotic lesions. Note that overlapping bowel shadows may however obscure fine detail. Sacroiliac joints are unremarkable. No widening of the pubic symphysis. HIPS: Both femoral heads appear seated in the acetabula. Mild left femoral acetabular joint space narrowing and small osteophytes. SOFT TISSUES: No soft tissue swelling or gas. RAD/HIP, UNI W/ Pelvis 2-3 Views IMPRESSION: Left hip DJD appears similar to 03/04/2020 Electronically Signed: Waqas Frank MD at 17:10 EDT ,
--- NOTE | 2022-09-16 13:10 | RAD_ITS ---
INDICATION: lumbar strain EXAMINATION/TECHNIQUE: X-RAY - XR Spine Lumbar Min 4 Views COMPARISON: 03/18/2020 FINDINGS: VERTEBRAE: Preserved vertebral body height. Demineralization reduces sensitivity for fracture. 5 mm L1-2 retrolisthesis. Mild thoracolumbar dextroscoliosis redemonstrated. Facet arthrosis at all levels. DISCS: Endplate disease and disc space loss at all levels. INCLUDED ABDOMEN: Calcific aorta. RAD/L/S Spine Min 4 Views IMPRESSION: Lumbar spine degeneration appears mildly progressed compared to 03/18/2020. No acute abnormal finding in the lumbar spine. Electronically Signed: Waqas Frank MD at 17:08 EDT ,
== END | disposition home or self-care (01) ==
LOC: MTRAD 13:06
PROVIDERS: PCP Family Medicine; Referring Provider Family Medicine; Visit Provider Family Medicine
DX: M25.552 Pain in left hip (principal); S39.012A Strain of muscle, fascia and tendon of lower back, initial encounter; X58.XXXA Exposure to other specified factors, initial encounter
CPT/HCPCS: 72110; 73502

== ENCOUNTER → 2022-09-26 | Outpatient (CLI) | payer MEDICARE, SELFPAY ==
--- NOTE | 2022-09-26 16:12 | BI_ITS ---
MAMMOGRAPHY - UNILATERAL SCREENING: RIGHT BREAST REASON FOR EXAM: Female, 87 years old. Routine annual screening examination (unilateral). PERTINENT HISTORY: Personal history of breast cancer. Prior left mastectomy and radiation treatment. TECHNIQUE: Digital unilateral breast lisandro (3D mammographic acquisition) in the CC and MLO projections. 2-D mediolateral oblique (MLO) and craniocaudad (CC) views of both breasts were obtained. CAD: Full Field Digital Mammography with Computer Added Detection was performed. COMPARISON: Comparison is made with prior study dated January 04, 2022 and August 20, 2021. FINDINGS: Breast Composition: There are scattered areas of fibroglandular density. There are no dominant masses or suspicious calcifications. Stable diffuse calcifications in the right breast. No other significant abnormalities are identified. There has been no significant change since the prior study. BI/SCREEN MAMM (CAD) W/LISANDRO UNI R IMPRESSION: Stable unilateral screening mammogram. Yearly follow-up mammogram recommended. (A) ASSESSMENT CATEGORY: BIRADS Category 2: Benign. A letter regarding these results will be sent to the patient by the facility within 30 days. Approximately 10% of breast cancers are not detected by mammography. A normal mammogram should not delay biopsy of a clinically suspicious abnormality. [id number] Electronically Signed: Chente Alcaraz MD at 9:48 EDT ,
--- NOTE | 2022-09-26 16:35 | CT_ITS ---
STUDY: CT LUMBAR SPINE WITHOUT CONTRAST REASON FOR EXAM: Female, 87 years old. Low back/hip pain -- eval for disease RADIATION DOSAGE (If Supplied By Facility): CTDIvol = ( 14.98 ) mGy, DLP = ( 868.50 ) mGycm TECHNIQUE: The patient was scanned in a multi detector CT scanner. High resolution transaxial imaging was performed. Images were obtained from T12 to S1 vertebral level. Sagittal and coronal images were reconstructed. Individualized dose optimization techniques were used for this CT. COMPARISON: None FINDINGS: Normal lumbar lordosis. There is a dextroscoliosis of the lumbar spine. Normal vertebrae of the lumbar spine. L1-2: Marked degree of disc space narrowing and disc degeneration with spondylosis. Facet joint osteoarthritis and hypertrophy. No significant stenosis seen. L2-3: Marked degree of disc space narrowing. Spondylosis. Facet joint osteoarthritis and hypertrophy. Mild degree of bilateral neural foraminal stenosis. L3-4: Marked degree of disc space narrowing. Spondylosis. Facet joint osteoarthritis and hypertrophy. Moderate degree of bilateral neural foraminal stenosis. L4-5: Marked degree of disc space narrowing. Marked degree of hypertrophy of the facet joints with bilateral neural foraminal stenosis. L5-S1: Marked degree of disc space narrowing. Spondylosis. Degenerative changes of the sacroiliac joints bilaterally more prominent on the right side. Hydronephrosis or large cyst in the left kidney with thinning of the renal parenchyma. Large solid mass partially visualized in the left abdomen. Correlation with CT scan the abdomen is recommended. Atherosclerotic calcification of the abdominal aorta. CT/Spine Lumbar without Contrast IMPRESSION: Multilevel degenerative changes, as described above. Dextroscoliosis. Soft tissue mass in the left upper quadrant. Correlation with CT scan of the abdomen is recommended. Electronically Signed: Chente Alcaraz MD at 10:51 EDT ,
--- NOTE | 2022-09-26 16:35 | CT_ITS ---
STUDY: CT PELVIS WITH CONTRAST REASON FOR EXAM: Female, 87 years old. Low back / hip pain -- eval for disease RADIATION DOSAGE (If Supplied By Facility): CTDIvol = ( 14.98 ) mGy, DLP = ( 868.50 ) mGycm TECHNIQUE: Transaxial imaging of the pelvis was performed without oral contrast. IV 100mL Isovue-300 was administered intravenously. Multiplanar coronal and sagittal images were reformatted. Individualized dose optimization techniques were used for this CT. COMPARISON: None. FINDINGS: Normal urinary bladder. Large left renal cyst. Normal visualized small intestine. Normal visualized colon. There is no pelvic fluid. There is no pelvic lymphadenopathy or mass lesion. There is diffuse atherosclerotic calcification of the pelvic arteries. Normal abdominal wall. There are diffuse degenerative changes of the visualized lumbar spine. Degenerative changes of the sacroiliac joints bilaterally. CT/Pelvis WITH IV Contrast IMPRESSION: Large left renal cyst. Degenerative changes of the lumbar spine as well as the symphysis pubis and sacroiliac joints bilaterally. Electronically Signed: Chente Alcaraz MD at 10:57 EDT ,
[2022-09-26 17:02] LABS: CREATININE FINGERSTICK 1.6 mg/dL (0.55-1.02)
== END | disposition home or self-care (01) ==
PROVIDERS: PCP Family Medicine; Referring Provider Student in an Organized Health Care Education/Training Program; Visit Provider Student in an Organized Health Care Education/Training Program
DX: M54.50 Low back pain, unspecified (principal); M25.559 Pain in unspecified hip; Z12.31 Encounter for screening mammogram for malignant neoplasm of breast; Z90.12 Acquired absence of left breast and nipple; Z85.3 Personal history of malignant neoplasm of breast
CPT/HCPCS: 72131; 72193; 77063; 77067; Q9967; A4216

== ENCOUNTER 2022-10-25 10:30 | Outpatient (RCR) | payer MEDICARE, SELFPAY ==
--- NOTE | 2022-08-16 11:29 | HP.OTEVAL_ITS ---
Patient's Visit Information NESTOR MONTES DE OCA is a 87 year old F, referred to Occupational Therapy by Dr. Alonzo John MD, with a diagnosis of lymphedema of left UE. Date of Evaluation: 08/16/22 Occupational Therapist: Sherry Olivera, DION/Edgar, CHT - Subjective This 87 year old female was seen for OT eval with dx of s/p left mastectomy /lymphedema. Pt states she had her mastectomy on 2021 with 20 lymph nodes removed with 18+. pt did have 16 radiation treatments -. finished in 2022. pt arrives today because she has had swelling under her left arm and arm pit and the feeling of tightness on her chest wall - pt states pmh (10 yrs ago) she had lumpectomy left breast with radiation- on the breast following the lumpe ctomy. pt states she also has low back pain starting about a week ago- pt states pain. - Lymphedema (Circumferential Measure). MCP: right 18cm left 18cm. Wrist: right 15.5cm left 15cm. Lower forearm: right 19cm left 20cm. Largest forearm: right 24cm left 26cm. Elbow: right 24.cm left 25cm. Largest humerus: right 30cm left 36cm. Axcillary: right 33cm left 33cm - ADLs Comments: pt FABIANA with ADLs and IADLs- Family assist as needed- - Pain left UE 2 Pain Intensity Range: 2 - Lymphedema (Circumferential Measure) MCP: right 18cm left 18cm Wrist: right 15cm left 15cm Lower forearm: right 19cm left 18cm Largest forearm: right 24cm left 26cm Elbow: right 24.5cm left 25cm Largest humerus: right 30cm left 32cm Axcillary: right 33cm left 30cm Upper Exremity Comments: with left UE ROM noted limited ROM and skin tightness with shoulder abduction - Quick DASH-Disab of Arm,Shoulder& Hand Quick DASH Score: 25.0000 - Goals Demonstrate a 20% reduction in edema by d/c: Yes Demonstrate adequate knowledge of self-bangaging by 1st week: Yes Demonstrate adequate knowledge of self-massage by 2nd week: Yes Demonstrate adequate knowledge skin care/prec by 2nd week: Yes Demonstrate adequate knowledge therapeutic exercises by d/c: Yes Select approp compression garment w/donning/care/wear by d/c: Yes Voice need to replace compression garment every 4-6mo by dc: Yes Goal: Patient will demonstrate ROM WFL by discharge.: Yes - Rehabilitation General Assessment: pt demo with a limited left UE ROM with pulling at axillary region- pt would benefit from skilled OT services 1x week for 4 weeks to incre ase pts left UE ROM decrease skin tightness and cont with lymphedema treatments . Today therapist ed, pt and gave handout on AROM of scapula retraction - shoulder flexion and abduction to increase ROM- pt instructed to continue with her self manual lymph massage. pt demo understanding and agree to POC. Rehabilitation Potential: Good - Anticipated Interventions A/AAROM/PROM, Education re Life-long lymphedema Management, Education re Skin Care and Precautions, Education re Self Massage Techniques, Caregiver Training, Home Program - Visit Plan Frequency: 1x/Week Duration: 2-4 Weeks TEXT: Thank you for the opportunity to evaluate your patient. For Medicare and Medicare HMO plans, please review the plan of care and approve it. It will need to be FAXED BACK to us at [phone] for Medicare purposes. Please let me know if there are questions or concerns regarding this plan of care. Physician Signature: Date:
--- NOTE | 2023-02-10 10:46 | HP.OTDCSUM ---
Discharge Summary D/C Summary: It has been my pleasure to treat NESTOR MONTES DE OCA under orders from Dr. Alonzo John MD, for the diagnosis of lymphedema of left UE for a total of 8 visit(s). Please see the following information for a summary of their discharge status. Overall Improvement % Improvement: 75 Objective Objective/Function: pt demo increase in skin mobilization at this time Goals Patient Goals: Regain Mobility and Learn how to Manage Lymphedema Goal: Patient will demonstrate a 20% reduction in edema by discharge: Yes Goal: Patient will demonstrate adequate knowledge of self-bandaging by the end of the first week.: Yes Goal: Patient will demonstrate adequate knowledge of self-massage by the end of the second week.: Yes Goal: Patient will demonstrate adequate knowledge of skin care and precautions by the end of the first week.: Yes Goal: Patient will demonstrate adequate knowledge of therapeutic exercises by discharge.: Yes Goal: Patient will select an appropriate compression garment and demonstrate adequate knowledge of correct donning technique, care and wearing schedule by discharge.: Yes Goal: Patient will voice understanding of need to replace compression garment every four to six months by discharge.: Yes Goal: Patient will demonstrate ROM WFL by discharge.: Yes Plan Plan: Will d/c at this time D/C Information d/c sentence: If there are questions or concerns regarding this patient's occupational therapy, please fell free to call me at [phone]. Thank you for the referral of this patient. Sincerely, Sherry Olivera, ROHINIR/L, CHT
== END 2022-10-25 19:00 | disposition home or self-care (01) ==
LOC: OT 10:30
PROVIDERS: PCP Family Medicine; Referring Provider Internal Medicine Medical Oncology; Visit Provider Internal Medicine Medical Oncology
DX: C50.412 Malignant neoplasm of upper-outer quadrant of left female breast (principal); I89.0 Lymphedema, not elsewhere classified
CPT/HCPCS: 97110; 97140; 97166

== ENCOUNTER → 2023-01-19 | Outpatient (CLI) | payer MEDICARE, SELFPAY ==
[2023-01-19 18:21] LABS: ALB/GLOB Ratio 0.8 RATIO (0.9-2.4); AST(SGOT) 15 U/L (15-37); Alanine Aminotransfer ALT/SGPT 16 U/L (13-56); Albumin, Serum 3.6 g/dL (3.2-5.0); Alkaline Phosphatase 61 U/L (45-117); Anion Gap 8 (5-15); BUN 29 mg/dL (7-18); BUN/Creat Ratio 27.1 RATIO (10-20); Calcium,Total 9.1 mg/dL (8.5-10.1); Chloride 96 mmol/L (98-107); Cholesterol 202 mg/dL (200); Creatinine, Serum 1.07 mg/dL (0.55-1.02); EST Glomerular Filtration Rate 52 mL/min (>60); Est Glom Filt Rate - Afr Amer 62 mL/min (>60); Globulin 4.4 g/dL (2.2-4.2); Glucose 106 mg/dL (74-106); High Density Lipoprotein 65 mg/dL; Potassium 3.8 mmol/L (3.5-5.1); Sodium Level 129 mmol/L (136-145); Triglycerides 73 mg/dL; Very Low Density Lipoprotein 15 mg/dL (5-40)
== END | disposition home or self-care (01) ==
LOC: MFPLAB 14:16
PROVIDERS: PCP Family Medicine; Visit Provider Family Medicine
DX: E78.5 Hyperlipidemia, unspecified (principal)
CPT/HCPCS: 36415; 80053; 80061

== ENCOUNTER → 2023-07-22 | Outpatient (CLI) | payer MEDICARE, SELFPAY ==
[2023-07-22 10:04] LABS: Anion Gap 6 (5-15); BUN 30 mg/dL (7-18); BUN/Creat Ratio 24.4 RATIO (10-20); Chloride 99 mmol/L (98-107); Cholesterol 188 mg/dL (200); Creatinine, Serum 1.23 mg/dL (0.55-1.02); EST Glomerular Filtration Rate 44 mL/min (>60); Est Glom Filt Rate - Afr Amer 53 mL/min (>60); Glucose 81 mg/dL (74-106); High Density Lipoprotein 65 mg/dL; Potassium 4.1 mmol/L (3.5-5.1); Sodium Level 132 mmol/L (136-145); Triglycerides 42 mg/dL; Very Low Density Lipoprotein 8 mg/dL (5-40)
== END | disposition home or self-care (01) ==
PROVIDERS: PCP Family Medicine; Referring Provider Family Medicine; Visit Provider Family Medicine
DX: E78.5 Hyperlipidemia, unspecified (principal)
CPT/HCPCS: 36415; 80048; 80061

== ENCOUNTER → 2023-09-29 | Outpatient (CLI) | payer MEDICARE, SELFPAY ==
--- NOTE | 2023-09-29 09:41 | BI_ITS ---
MAMMOGRAPHY - UNILATERAL SCREENING: RIGHT BREAST REASON FOR EXAM: Female, 88 years old. Routine annual screening examination (unilateral). PERTINENT HISTORY: Non-contributory. TECHNIQUE: Digital examination. Mediolateral oblique (MLO) and craniocaudad (CC) views of the breast were obtained. CAD: CAD was performed on this study. COMPARISON: 09/26/2022 FINDINGS: Breast Composition: There are scattered areas of fibroglandular density. There are no dominant masses or suspicious calcifications. No other significant abnormalities are identified. Benign rodlike calcifications. BI/SCREEN MAMM (CAD) W/LISANDRO UNI R IMPRESSION: Stable right screening mammogram. ASSESSMENT CATEGORY: BIRADS Category 2: Benign. A letter regarding these results will be sent to the patient by the facility within 30 days. FOLLOW UP RECOMMENDATION: Yearly follow up mammogram recommended. (A) [id number] Approximately 10% of breast cancers are not detected by mammography. A normal mammogram should not delay biopsy of a clinically suspicious abnormality. [id number] Electronically Signed: Triston White MD at 13:34 EDT ,
== END | disposition home or self-care (01) ==
LOC: OPBI 09:39
PROVIDERS: PCP Family Medicine; Referring Provider Student in an Organized Health Care Education/Training Program; Visit Provider Student in an Organized Health Care Education/Training Program
DX: Z12.31 Encounter for screening mammogram for malignant neoplasm of breast (principal); C50.912 Malignant neoplasm of unspecified site of left female breast
CPT/HCPCS: 77063; 77067

== ENCOUNTER → 2024-01-18 | Outpatient (CLI) | payer MEDICARE, SELFPAY ==
[2024-01-18 18:07] LABS: Absolute Lymphocyte Count 1.06 X10^3/uL (0.83-4.51); Absolute Neutrophil Count 8.1 X10^3/uL (2.0-7.7); Basophil# 0.04 X10^3/uL; Basophil% 0.4 % (0-1); Eosinophil# 0.07 X10^3/uL; Eosinophils% 0.7 % (0-5); Hematocrit 38.6 % (37-47); Hemoglobin 12.4 g/dL (12.0-15.0); Lymphocyte # 1.06 X10^3/ul (0.83-4.51); Lymphocyte % 10.7 % (19-41); Mean Corp Hgb Conc 32.1 g/dL (32-36); Mean Corpuscular Hgb 29.2 pg (27.0-32.0); Mean Corpuscular Volume 90.8 fL (81-99); Mean Platelet Vol. 10.9 fl (6.2-12.0); Monocyte# 0.64 X10^3/uL; Monocyte% 6.5 % (0-10); NRBC Flagged by Analyzer 0 % (0-5); Neutrophil # 8.07 X10^3/uL (2.7-7.7); Neutrophil % 81.3 % (47-70); Platelet Count 284 K/mm3 (150-450); RBC Distribution Width CV 14.1 % (11.6-14.6); RBC Distribution Width SD 46.8 fl (35.1-43.9); Red Blood Count 4.25 M/mm3 (4.2-5.4); White Blood Count 9.9 K/mm3 (4.4-11.0)
[2024-01-18 18:27] LABS: Anion Gap 8 (5-15); BUN 29 mg/dL (7-18); BUN/Creat Ratio 28.4 RATIO (10-20); Calcium,Total 9.6 mg/dL (8.5-10.1); Chloride 96 mmol/L (98-107); Creatinine, Serum 1.02 mg/dL (0.55-1.02); EST Glomerular Filtration Rate 54 mL/min (>60); Est Glom Filt Rate - Afr Amer 66 mL/min (>60); Glucose 90 mg/dL (74-106); Potassium 4.2 mmol/L (3.5-5.1); Sodium Level 131 mmol/L (136-145)
== END | disposition home or self-care (01) ==
PROVIDERS: PCP Family Medicine; Visit Provider Family Medicine
DX: I10 Essential (primary) hypertension (principal); N39.0 Urinary tract infection, site not specified; R53.83 Other fatigue
CPT/HCPCS: 36415; 80048; 84443; 85025; 87086; 87088; 87186

== ENCOUNTER → 2024-07-15 | Outpatient (CLI) | payer MEDICARE, SELFPAY ==
[2024-07-15 17:55] LABS: Color, Urine Yellow (Yellow); Glucose, Dipstick Normal (Normal); Ketone-Dipstick Negative (Negative); Leukocyte Esterase-Dipstick 500 /ul (Negative); Nitrite-Dipstick Positive (Negative); Occult Blood-Urine Negative /ul (Negative); Protein-Dipstick 15 mg/dl (Negative); Urine Bilirubin Dipstick Negative (Negative); Urine Clarity Sl. Cloudy (Clear); Urine Urobilinogen Normal (Normal)
== END | disposition home or self-care (01) ==
LOC: MFPLAB 14:05 → LABSPEC 14:06
PROVIDERS: PCP Family Medicine; Referring Provider Family Medicine; Visit Provider Family Medicine
DX: N39.0 Urinary tract infection, site not specified (principal); R32 Unspecified urinary incontinence
CPT/HCPCS: 81002; 87086; 87088; 87186

== ENCOUNTER 2024-10-01 10:17 | Inpatient (IN) | payer MEDICARE, SELFPAY ==
[2024-10-01] VITALS (23 sets, daily range): BP systolic 101–156; BP diastolic 42–87; PULSE 67–132; RESP 16–27; TEMP 36.1–37; O2SAT 92–98; BMI 34.2; BMI 32.7
--- NOTE | 2024-10-01 10:56 | VDLE_ITS ---
Reason For Study Reason For Study: Bilateral leg swelling RIGHT LEFT GSV is normal. GSV is normal. CFV is compressible, spontaneous, competent and CFV is partially compressible with bright demonstrates pulsatile venous flow. intraluminal echoes consistent with Chronic DVT. FV is compressible, spontaneous, competent and Pulsatile venous flow noted. demonstrates pulsatile venous flow. FV is compressible, spontaneous, competent and FV distal visualized with color only, appear patent. demonstrates pulsatile venous flow. Patient unable to tolerate compression. FV distal visualized with color only, appear patent. POP V is compressible, spontaneous, competent and Patient unable to tolerate compression. demonstrates pulsatile venous flow. POP V is compressible, spontaneous, competent and T/P Trunk is compressible. demonstrates pulsatile venous flow. PTV is compressible. T/P Trunk is compressible. RT PerV is compressible. PTV is compressible. Procedure LT PerV is compressible. This is a venous duplex using B-mode, color flow and spectral Doppler. Exam performed portable in ED. A preliminary report was called and/or faxed to Dr. Ward. VL/Venous Duplex US - Tj Extrem Interpretation Summary Chronic deep vein thrombosis noted in the left common femoral vein. Deep veins of the right lower extremity are patent and compressible segmentally . There is no evidence of right lower extremity deep vein thrombosis. The bilateral great saphenous veins appear kim nt and compressible segmentally. Ordering Physician: Renzo Ward Referring Physician: Waqas Palma Performed By: Nola Sol RVT
--- NOTE | 2024-10-01 10:56 | RAD_ITS ---
PROCEDURE: CHEST 1 VIEW (PORTABLE) 10/01/2024 REASON FOR EXAM: SHORTNESS OF BREATH TECHNIQUE: Frontal view of the chest. COMPARISON: 03/05/2020 FINDINGS: Hardware: EKG leads overlie the chest Heart: Cardiac and mediastinal contours are stable. Lungs: Lungs are expanded with superimposed interstitial edema and bilateral pleural effusions suggesting pulmonary vascular congestion/CHF however, this could also be seen with a diffuse inflammatory process. Please correlate with physical exam. Bones: Degenerative changes are identified within the thoracic spine. Other: Peripheral calcifications in the thoracic aorta. RAD/Chest 1 View (Portable) IMPRESSION: Interstitial edema with blunting of both costophrenic angle suggesting associat ed pleural effusions. Findings suggest pulmonary vascular congestion/CHF though a diffuse inflammatory process could also cause similar findings. Follow-up recommended to ensure resolution Reading Location: [id number]
--- NOTE | 2024-10-01 10:57 | EKG12_ITS ---
Test Reason : WEAKNESS Blood Pressure : */* mmHG Vent. Rate : 94 BPM Atrial Rate : * BPM P-R Int : * ms QRS Dur : 86 ms QT Int : 372 ms P-R-T Axes : * 37 -12 degrees QTcB Int : 465 ms Atrial fibrillation Nonspecific T wave abnormality Abnormal ECG Confirmed by YOLANDE KINNEY, MARLI ([id number]), film editor MARCUS VARELA ([id number]) on 10/02/2024 1:40:49 PM Referred By: Confirmed By: MARLI LANIER MD
--- NOTE | 2024-10-01 10:58 | EX.ED.DYSGE1 ---
HPI History of Present Illness Chief Complaint: Edema Narrative Narrative: 89-year-old female past medical history of hypertension presents with swelling of her bilateral lower extremities left greater than right as well as rapid heart rate that she has had for the last 2 weeks. She states that she has noticed that her heart rate has been elevated recently over the last 2 weeks, as high as 148 bpm. Sometimes someone 130s. She had swelling of her bilateral lower extremities as well. No fevers or chills, no nausea or vomiting, no cough. She went to her primary care provider's office today and saw the nurse practitioner who noticed that she was in atrial fibrillation with RVR. This is a new diagnosis for her. She denies history of heart failure or any other problems with her heart so she states. [facility] Medical History Wears hearing aid Wears glasses Ambulates with cane DVT (deep venous thrombosis) Non-smoker History of echocardiogram GERD (gastroesophageal reflux disease) Constipation Arthritis Back problem Breast cancer HTN (hypertension) Home Medications ?Medication ?Instructions ?Recorded ?Last Taken ?Type amlodipine 5 mg tablet 10 mg PO DAILY BP 03/05/20 01/04/22 02:00 History cholecalciferol (vitamin D3) 50 2,000 unit PO DAILY SUPPLEMENT 03/05/20 01/03/22 History mcg (2,000 unit) capsule cranberry extract-vitamin C 250 2 ea PO DAILY URINARY HEALTH 03/05/20 01/03/22 History mg-60 mg capsule lisinopril 20 mg tablet 20 mg PO DAILY BP 03/05/20 01/04/22 02:00 History omeprazole 20 mg delayed 20 mg PO DAILY GERD 03/05/20 01/03/22 History release,disintegrating tablet oxybutynin chloride 5 mg tablet 5 mg PO DAILY BLADDER 03/05/20 01/03/22 History denosumab 60 mg/mL subcutaneous 60 mg subcut [id number] 09/20/22 Unknown History syringe (Prolia) premier protein 30 g PO .every other day 01/29/24 Unknown History anastrozole 1 mg tablet 1 mg PO DAILY #90 tabs 07/22/24 Unknown Rx ascorbic acid-ascorbate sodium tab PO DAILY 07/22/24 Unknown History (vitamin C) 500 mg chewable tablet aspirin 81 mg tablet,delayed 81 mg PO .every other day 07/22/24 Unknown History release (Adult Aspirin Regimen) diphenhydramine HCl 25 mg tablet 25 mg PO QHS PRN 07/22/24 Unknown History (Benadryl Allergy) Allergy/AdvReac Type Severity Reaction Status Date / Time sulfamethoxazole (From Allergy Intermediate Dizziness Verified 08/01/24 09:02 Septra) trimethoprim (From Septra) Allergy Intermediate Dizziness Verified 08/01/24 09:02 Penicillins (PCN) Allergy Swelling Verified 08/01/24 09:02 erythromycin base AdvReac Nausea Verified 08/01/24 09:02 Family History Mother Myocardial infarction Diabetes Father Myocardial infarction Diabetes Sister Colon cancer Aunt Cancer Breast Surgical History History of left mastectomy Hx of knee surgery History of lymph node biopsy (~10/2021) History of breast biopsy (~10/2021) History of History of lumpectomy of left breast History of hysterectomy Social History household members: spouse and other details: daughter and son-in-law, grandchildren housing: house Smoking Status: Never smoker alcohol intake: current alcohol intake frequency: a few times a week Alcohol type: wine what type of physical activity do you participate in: none do you feel safe at home: Yes ROS ROS ED ROS Narrative Review of systems positive for rapid heart rate, heart palpitations, chest pain or shortness of breath, no fevers or chills, no cough. Positive bilateral leg swelling left greater than right. EXAM Physical Exam Narrative Exam Narrative: Afebrile. Vital signs noted. Nontoxic-appearing. Cardiovascular examination reveals an irregularly irregular tachycardia ranging from 115 to 132 bpm. Lungs are clear to auscultation bilaterally. Abdomen is soft and nontender with normoactive bowel sounds. Positive bilateral lower extremity swelling/pedal edema noted. Left appears slightly larger than right. Neurovascular intact distally with palpable dorsalis pedis pulses bilaterally. Const Vital Signs: 10/01/24 10:18 10/01/24 10:39 10/01/24 10:42 Temperature 98.6 F Temperature Source Oral Pulse Rate 132 H 115 H Respiratory Rate 27 H 18 Respiratory Effort Normal Non-Labored Respiratory Pattern Normal Blood Pressure 119/67 Blood Pressure Mean 84 Pulse Ox 95 97 Oxygen Delivery Method Room Air Room Air 10/01/24 11:17 10/01/24 12:00 10/01/24 12:00 Temperature Temperature Source Pulse Rate 97 88 97 Respiratory Rate 18 24 H 18 Respiratory Effort Respiratory Pattern Blood Pressure 143/67 H 101/80 101/80 Blood Pressure Mean 92 87 87 Pulse Ox 96 95 96 Oxygen Delivery Method Room Air Room Air Room Air MDM MDM MDM Narrative Medical decision making narrative: Differential diagnosis includes but not limited to A-fib with RVR causing CHF versus pneumonia versus pneumothorax versus DVT of bilateral lower extremities. Highly unlikely that she has bilateral lower extremity DVTs. In review of her prior EMR is a problem list there is DVT listed previously. However, she is not on a blood thinner. EKG was obtained and interpreted by myself independently as atrial fibrillation at [address] changes. No STEMI. This is changed from her EKG in December 2021 when she was in normal sinus rhythm. I reviewed her laboratory work and she has a normal white count of 9.1 with hemoglobin stable at 10.9 when compared to prior laboratories, platelet count 317. BUN of 28 and creatinine 1.23, glucose 86. Sodium normal at 134 with potassium normal at 4.1. Anion gap normal at 14. BNP is elevated at 3284. Urinalysis positive for nitrites with 10-25 WBCs. There is 2+ bacteria. This was sent for culture. She is not here for dysuria so I will defer antibiotics. I discussed the patient with the mechanical engineering technologist and reviewed the preliminary report. 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 I do not feel that she needs to be anticoagulated emergently. Chest x-ray in 1 view interpreted by myself independently shows blunting of the bilateral costophrenic angles and CHF but no consolidation or pneumothorax. I reviewed the radiology report which confirms my independent interpretation. Prior outpatient records shows last echocardiogram in 2021. Given her new onset atrial fibrillation and CHF, I do feel that she requires at least observation. Patient will be discussed with the hospitalist for consultation with cardiology as needed. I discussed patient with Dr. Mckeon who will admit the patient to the PCU in stable condition. I deferred Lasix as well secondary to a systolic blood pressure of 101 currently. History & Record Review Discussion w/independent historian: Patient and Family Lab Data Attestation: I reviewed the patient's lab results. Labs: Laboratory Results - last 24 hr 10/01/24 10/01/24 11:00 11:55 WBC 9.1 RBC 3.72 L Hgb 10.9 L Hct 34.1 L MCV 91.7 MCH 29.3 MCHC 32.0 RDW Std Deviation 51.1 H RDW Coeff of Kierra 15.5 H Plt Count 317 MPV 11.0 Immature Gran % (Auto) 0.500 Neut % (Auto) 80.9 H Lymph % (Auto) 8.3 L Mcduffie % (Auto) 8.5 Eos % (Auto) 1.1 Baso % (Auto) 0.7 Absolute Neuts (auto) 7.4 Absolute Lymphs (auto) 0.76 L Nucleated RBC % 0 Sodium 134 Potassium 4.1 Chloride 100 Carbon Dioxide 20.6 L Anion Gap 14 BUN 28 H Creatinine 1.23 H Estim Creat Clear Calc 28.48 L Est GFR (MDRD) Non-Af 42 L BUN/Creatinine Ratio 22.9 H Glucose 86 Calcium 9.3 NT pro BNP II 3284 H Urine Color Yellow Urine Clarity Sl. Cloudy Urine pH 6.0 Ur Specific [place] 1.015 Urine Protein 30 H Urine Glucose (UA) Normal Urine Ketones Negative Urine Occult Blood 10 H Urine Nitrite Positive H Urine Bilirubin Negative Urine Urobilinogen Normal Ur Leukocyte Esterase 500 H Urine RBC 0 SEEN Urine WBC 10-25 SEEN Ur Squamous Epith Cells 0 SEEN Ur Renal Epithelial Cell 0-5 SEEN Urine Bacteria 2+ Urine Mucus 0 SEEN Radiography Chest X-Ray - ED: 1 View, Read by ED Physician, Read by Radiologist and CHF Diagnostic Testing: Clinical Impression(s) from Imaging Studies Chest X-Ray 10/01/24 10:56 IMPRESSION: Interstitial edema with blunting of both costophrenic angle suggesting associated pleural effusions. Findings suggest pulmonary vascular congestion/CHF though a diffuse inflammatory process could also cause similar findings. Follow-up recommended to ensure resolution Reading Location: [id number] Management Discussion w/another healthcare provider: Hospitalist Discharge Plan Dx/Rx/DC Orders Clinical Impression: New onset atrial fibrillation, Congestive heart failure, Atrial fibrillation with RVR, Pleural effusion, bilateral Disposition Disposition: Acute Care Hospital [facility]
[2024-10-01 11:31] LABS: Hematocrit 34.1 % (37-47); Hemoglobin 10.9 g/dL (12.0-15.0); Immature Granulocytes Count 0.050 X10^3/uL (0.0-0.0); Mean Corp Hgb Conc 32.0 g/dL (32-36); Mean Corpuscular Volume 91.7 fL (81-99); Mean Platelet Vol. 11.0 fl (6.2-12.0); NRBC Flagged by Analyzer 0 % (0-5); Platelet Count 317 K/mm3 (150-450); RBC Distribution Width CV 15.5 % (11.6-14.6); RBC Distribution Width SD 51.1 fl (35.1-43.9); Red Blood Count 3.72 M/mm3 (4.2-5.4); White Blood Count 9.1 K/mm3 (4.4-11.0)
[2024-10-01 12:09] LABS: Mucous, Urine 0 SEEN /hpf (<or=2+); Red Blood Cells-Urine 0 SEEN /hpf (0-5); Squamous Epithelial Cells - UA 0 SEEN /hpf (5-10)
[2024-10-01 12:09] LABS: Anion Gap 14 (5-15); BUN 28 mg/dL (4-19); BUN/Creat Ratio 22.9 RATIO (10-20); Calcium,Total 9.3 mg/dL (7.6-11.0); Carbon Dioxide 20.6 mmol/L (21.0-32.0); Chloride 100 mmol/L (98-108); Estimated Creatinine Clearance 28.48 ml/min (50-250); Glucose 86 mg/dL (70-99); Potassium 4.1 mmol/L (3.3-5.1); Pro- Brain NATRIURETIC PEPTIDE 3284 pg/mL (<=1800)
[2024-10-01 12:11] LABS: Color, Urine Yellow (Yellow); Glucose, Dipstick Normal (Normal); Ketone-Dipstick Negative (Negative); Leukocyte Esterase-Dipstick 500 /ul (Negative); Nitrite-Dipstick Positive (Negative); Occult Blood-Urine 10 /ul (Negative); Protein-Dipstick 30 mg/dl (Negative); Specific Gravity, Urine 1.015 (1.002-1.030); Urine Bilirubin Dipstick Negative (Negative)
--- NOTE | 2024-10-01 12:45 | PCM.HP.STD ---
[facility] - General General Date of Admission: 10/01/24 Date of Service: 10/01/24 Chief Complaint: Shortness of breath and bilateral lower extremity swelling HPI Narrative NESTOR MONTES DE OCA, is a 89 F who presents with shortness of breath and bilateral lower extremity swelling. Patient symptoms started a couple of days prior to her admission. She did notice increasing swelling involving both lower extremities. Patient also did experience shortness of breath with minimal activity. On the morning of her admission patient did experience left-sided chest discomfort. She did take her blood pressure and noticed her heart rate to be around 140. She followed up with her primary care physicians later on in the day, EKG obtained did show A-fib with RVR. Patient was subsequently sent to the emergency department. Imaging studies obtained on admission did show Iinterstitial edema with blunting of both costophrenic angle suggesting associated pleural effusions. Findings suggest pulmonary vascular congestion/CHF though a diffuse inflammatory process could also cause similar findings. Patient was also found to have abnormal urinalysis and on further questioning admitted to experiencing urinary frequency and dysuria. Admitted to monitored bed for further management [facility] Medical History Wears hearing aid Wears glasses Ambulates with cane DVT (deep venous thrombosis) Non-smoker History of echocardiogram GERD (gastroesophageal reflux disease) Constipation Arthritis Back problem Breast cancer HTN (hypertension) Home Medications ?Medication ?Instructions ?Recorded ?Last Taken ?Type amlodipine 5 mg tablet 10 mg PO DAILY BP 03/05/20 01/04/22 02:00 History cholecalciferol (vitamin D3) 50 2,000 unit PO DAILY SUPPLEMENT 03/05/20 01/03/22 History mcg (2,000 unit) capsule cranberry extract-vitamin C 250 2 ea PO DAILY URINARY HEALTH 03/05/20 01/03/22 History mg-60 mg capsule lisinopril 20 mg tablet 20 mg PO DAILY BP 03/05/20 01/04/22 02:00 History denosumab 60 mg/mL subcutaneous 60 mg subcut [id number] 09/20/22 Unknown History syringe (Prolia) premier protein 30 g PO .every other day 01/29/24 Unknown History anastrozole 1 mg tablet 1 mg PO DAILY #90 tabs 07/22/24 Unknown Rx ascorbic acid-ascorbate sodium 1 tab PO DAILY 07/22/24 Unknown History (vitamin C) 500 mg chewable tablet aspirin 81 mg tablet,delayed 81 mg PO .every other day 07/22/24 Unknown History release (Adult Aspirin Regimen) diphenhydramine HCl 25 mg tablet 25 mg PO QHS PRN allergy symptoms 07/22/24 Unknown History (Benadryl Allergy) omeprazole 20 mg capsule,delayed 20 mg PO QHS 10/01/24 Unknown History release oxybutynin chloride 5 mg 5 mg PO DAILY 10/01/24 Unknown History tablet,extended release 24 hr Allergy/AdvReac Type Severity Reaction Status Date / Time sulfamethoxazole (From Allergy Intermediate Dizziness Verified 08/01/24 09:02 Septra) trimethoprim (From ) Allergy Intermediate Dizziness Verified 08/01/24 09:02 Penicillins (PCN) Allergy Swelling Verified 08/01/24 09:02 erythromycin base AdvReac Nausea Verified 08/01/24 09:02 Family History Mother Myocardial infarction Diabetes Father Myocardial infarction Diabetes Sister Colon cancer Aunt Cancer Breast Surgical History History of left mastectomy Hx of knee surgery History of lymph node biopsy (~10/2021) History of breast biopsy (~10/2021) History of History of lumpectomy of left breast History of hysterectomy Social History household members: spouse and other details: daughter and son-in-law, grandchildren housing: house Smoking Status: Never smoker alcohol intake: current alcohol intake frequency: a few times a week Alcohol type: wine what type of physical activity do you participate in: none do you feel safe at home: Yes ROS ROS Narrative GENERAL: denies fever, chills, night sweats, HEENT: denies headache, sinus congestion, RESPIRATORY: dshortness of breath, dyspnea on exertion CARDIAC: chest pain, palpitations, GASTROINTESTINAL: denies abdominal pain, nausea, GENITOURINARY: denies dysuria, urgency, frequency, EXTREMITY: denies swelling MUSCULOSKELETAL: denies current joint pain or tenderness NEUROLOGIC: denies focal numbness, weakness, tingling HEMATOLOGIC: denies easy bruising and/or hemorrhage INTEGUMENT: denies rashes PSYCHIATRIC: denies suicidal or homicidal ideation Vital Signs Vital Signs Vital Signs: 10/01/24 10:18 10/01/24 10:39 10/01/24 10:42 Temperature 98.6 F Temperature Source Oral Pulse Rate 132 H 115 H Respiratory Rate 27 H 18 Respiratory Effort Normal Non-Labored Respiratory Pattern Normal Blood Pressure 119/67 Blood Pressure Mean 84 Pulse Ox 95 97 Oxygen Delivery Method Room Air Room Air 10/01/24 11:17 10/01/24 12:00 10/01/24 12:00 Temperature Temperature Source Pulse Rate 97 88 97 Respiratory Rate 18 24 H 18 Respiratory Effort Respiratory Pattern Blood Pressure 143/67 H 101/80 101/80 Blood Pressure Mean 92 87 87 Pulse Ox 96 95 96 Oxygen Delivery Method Room Air Room Air Room Air Weight Weight: 74.4 kg Body Mass Index (BMI) 34.2 Physical Exam Narrative GENERAL: cooperative HEENT: Atraumatic; normocephalic EYES; Anicteric, Normal Conjunctiva NECK; supple, normal thyroid, RESPIRATORY: Diminished to auscultation CARDIOVASCULAR: Irregularly irregular GI: soft, normoactive bowel sounds, : No Renal angle tenderness; EXTREMITIES: Bilateral pedal edema with an area of erythema involving the left [place] MUSCULOSKELETAL: no muscle wasting NEURO: Awake; no lateralizing signs. SKIN: As described above PSYCH; Flat affect Results Lab / Micro Data 10/01/24 11:00 10/01/24 11:00 Labs: Laboratory Results - last 24 hr 10/01/24 11:00: WBC 9.1, RBC 3.72 L, Hgb 10.9 L, Hct 34.1 L, MCV 91.7, MCH 29.3, MCHC 32.0, RDW Std Deviation 51.1 H, RDW Coeff of [place] 15.5 H, Plt Count 317, MPV 11.0, Immature Gran % (Auto) 0.500, Neut % (Auto) 80.9 H, Lymph % (Auto) 8.3 L, [place] % (Auto) 8.5, Eos % (Auto) 1.1, Baso % (Auto) 0.7, Absolute Neuts (auto) 7.4, Absolute Lymphs (auto) 0.76 L, Nucleated RBC % 0, Sodium 134, Potassium 4.1, Chloride 100, Carbon Dioxide 20.6 L, Anion Gap 14, BUN 28 H, Creatinine 1.23 H, Estim Creat Clear Calc 28.48 L, Est GFR (MDRD) Non-Af 42 L, BUN/Creatinine Ratio 22.9 H, Glucose 86, Calcium 9.3, NT pro BNP II 3284 H 10/01/24 11:55: Urine Color Yellow, Urine Clarity Sl. Cloudy, Urine pH 6.0, Ur Specific [place] 1.015, Urine Protein 30 H, Urine Glucose (UA) Normal, Urine Ketones Negative, Urine Occult Blood 10 H, Urine Nitrite Positive H, Urine Bilirubin Negative, Urine Urobilinogen Normal, Ur Leukocyte Esterase 500 H, Urine RBC 0 SEEN, Urine WBC 10-25 SEEN, Ur Squamous Epith Cells 0 SEEN, Ur Renal Epithelial Cell 0-5 SEEN, Urine Bacteria 2+, Urine Mucus 0 SEEN Imaging Radiology Impression Chest X-Ray 10/01/24 10:56 IMPRESSION: Interstitial edema with blunting of both costophrenic angle suggesting associated pleural effusions. Findings suggest pulmonary vascular congestion/CHF though a diffuse inflammatory process could also cause similar findings. Follow-up recommended to ensure resolution Reading Location: [id number] Assessment & Plan Assessment/Plan (1) Atrial fibrillation with RVR: (2) Congestive heart failure: (3) Acute cystitis: PLAN: Plan Patient is an 89-year-old lady presented with progressive shortness of breath, palpitation and left-sided chest discomfort. Admitted to a monitored bed for further management 1. Acute congestive heart failure ? Unspecified at this point. Admitted to a monitored bed treatment initiated with strict input and output, daily weight, low-sodium diet, fluid restriction and IV furosemide. As part of patient's management 2D echo serial cardiac enzymes ordered 2. Paroxysmal A-fib with RVR ? Patient presented with rapid ventricular response in the emergency department however at the time of admission patient heart rate was below 100. Plan will be to start Cardizem drip to be titrated to keep heart rate less than 100 if patient rapid ventricular response recurrence. As part of patient's management ordered TSH 2D echo and patient started on systemic anticoagulation with apixaban 2.5 mg p.o. twice daily 3. Acute cystitis ? Present on admission patient started on ceftriaxone urine culture sent 4. Hypertension ? Blood pressure controlled, home medications continued with dose adjustment as needed 5. Chronic kidney disease stage III ? Ordered daily BMP for follow-up 6. Anemia ? Secondary to chronic disorder monitoring H&H and transfuse if patient becomes symptomatic or hemoglobin falls below 7 7.. History of breast cancer ? Involving the left breast status postmastectomy with subsequent radiation. Patient is currently on anastrozole and has since remained in remission 8. GERD ? On PPI 9. Osteoporosis ?patient is on denosumab 10. DVT prophylaxis ? Patient started on apixaban Advance planning; did discuss with the patient and family (her daughter who was in the room) regarding advanced directives as well as CODE STATUS. Did explain the various scenarios involved ( FULL CODE, DNR CCA, DNR CCA with no intubation, and DNR CC and what each meant) patient elected to be DNR CCA no intubation. Order was placed. Time spent on discussion 18 minutes. Charges/Coding Multi Select Codes Visit Charges Visit Charges: 46002 Init Hosp L3 Hospitalists' Procedures Procedures: 85902 Advncd Care Plan 30 Min
--- NOTE | 2024-10-01 15:29 | ECHOD_ITS ---
Reason For Study Reason For Study: CONGESTIVE HEART FAILURE Procedure This was a 2D Doppler, Color Flow transthoracic echocardiogram. The patient was scanned supine. Exam performed portable in patient room. Left Ventricle The estimated ejection fraction is 55???60 %. Right Ventricle Normal right ventricle. Normal systolic function. Atria The left atrium is moderately enlarged. The right atrium is moderately enlarged. Mitral Valve There is mild mitral annular calcification. Moderate (2+) eccentric mitral valve insufficiency. Tricuspid Valve Normal tricuspid valve. Mild (1+) tricuspid valve insufficiency. Aortic Valve Trisinus/trileaflet aortic valve. Pulmonic Valve The pulmonic valve is not well visualized. Great Vessels The aortic root is not well visualized. MMode/2D Measurements & Calculations LVIDd: 4.7 cm IVSd: 1.0 cm LVOT diam: 2.0 cm LVIDs: 2.5 cm LVPWd: 1.0 cm LVOT area: 3.0 cm2 RVDd: 4.1 cm FS: 46.7 % asc Aorta Diam: 3.2 cm LAV(MOD-bp): 47.1 ml LVAd ap4: 17.1 cm2 LAV(MOD-bp) Indexed: 28.9 ml/m2 LVLd ap4: 6.2 cm LAV(MOD-sp2): 48.9 ml EDV(MOD-sp4): 40.2 ml LAV(MOD-sp4): 41.5 ml EDV(sp4-el): 39.9 ml LVAs ap4: 9.3 cm2 LVLs ap4: 5.2 cm ESV(MOD-sp4): 13.8 ml ESV(sp4-el): 14.1 ml EF(MOD-sp4): 65.8 % EF(sp4-el): 64.8 % SV(MOD-sp4): 26.5 ml SV(MOD-sp2): 25.2 ml LVAd ap2: 17.0 cm2 LVLd ap2: 6.4 cm SI(MOD-sp4): 16.2 ml/m2 SI(MOD-sp2): 15.5 ml/m2 EDV(MOD-sp2): 38.6 ml EDV(sp2-el): 38.7 ml LVAs ap2: 9.4 cm2 LVLs ap2: 5.7 cm ESV(MOD-sp2): 13.4 ml ESV(sp2-el): 13.1 ml EF(MOD-sp2): 65.3 % SV(sp4-el): 25.9 ml Ao sinus diam: 2.[address] Junction: 2.3 cm LA A4 area: 16.2 cm2 LA dimension(2D): 4.2 cm RA A4 area: 12.4 cm2 TAPSE: 1.4 cm Time Measurements MV dec time: 0.17 sec Doppler Measurements & Calculations MV E max lilly: 120.5 cm/sec Ao V2 max: 142.1 cm/sec LV V1 max: 94.5 cm/sec Ao max P.1 mmHg LV V1 max P.6 mmHg Ao V2 mean: 112.9 cm/sec LV V1 mean P.2 mmHg Ao mean P.3 mmHg LV V1 mean: 73.2 cm/sec Ao V2 VTI: 35.1 cm LV V1 VTI: 23.2 cm AV (velocity ratio): 0.66 DELBERT(I,D): 2.0 cm2 DELBERT(V,D): 2.0 cm2 SV(LVOT): 69.6 ml PA V2 max: 70.8 cm/sec TR max lilly: 340.3 cm/sec TR max P.3 mmHg ECHO/Echo Complete Interpretation Summary The estimated ejection fraction is 55???60 %. Normal LV systolic function Moderate mitral regurgitation Mild tricuspid regurgitation. In comparison to previous echocardiogram MR is moderate. No pericardial effusion. Ordering Physician: Dedrick Mckeon Referring Physician: Waqas Palma Performed By: Earline Cosme RDCS
[2024-10-01] MEDS: 0.9% Saline Lock 10 ML Syringe IV (16:33)
[2024-10-01] MEDS: APIXABAN 5 MG TABLET PO (21:50)
--- OUTSIDE RECORDS SUMMARY | 2024-10-01 22:19 | XMS RPT_ITS | CCD ---
Author Organization [facility] [place] Clini[facility]n Care Team Providers Care Exceptional Student Education Teacher Name Role Phone Unavailable Primary Care Provider UnavailDr. Waqas Sharp Primary Care Provider Louie, Dr. Alan Referring Provider Dr. Zahida Arroyo Attending Provider Lucy Martinez Attending Provider Unavailable Dr. Alonzo John Attending Provider Dr. Waqas Skelton Attending Provider Dr. Waqas Scott Primary Care Provider Dr. Waqas Scott Referring Provider Dr. Zahida Arroyo Attending Provider Cruz, Dr. Teague Referring Provider Cruz, Dr. Teague Other Provider Cruz, Dr. Teague Admit Provider Louie, Dr. Alan Primary Care Provider Dr. Waqas Scott Referring Provider Dr. Zahida Arroyo Attending Provider Dr. Waqas Scott Primary Care Provider Dr. Robinson Yepez Attending Provider Dr. Robinson Yepez Referring Provider Dr. Waqas Scott Referring Provider Dr. Alonzo John Attending Provider Dr. Waqas Scott Primary Care Provider Dr. Waqas Scott Referring Provider Dr. Alonzo John Attending Provider Marleni, Dr. Bowers Attending Provider Louie, Dr. Alan Primary Care Provider Louie, Dr. Alan Referring Provider Marleni, Dr. Bowers Attending Provider Louie, Dr. Alan Primary Care Provider Louie, Dr. Alan Referring Provider Marleni, Dr. Bowers Attending Provider Alvaro, Dr. Rosado Attending Provider Louie, Dr. Alan Primary Care Provider Louie, Dr. Alan Referring Provider Marleni, Dr. Bowers Attending Provider Louie KINNEY, Dr. Alan Primary Care Provider [phone] Marleni SHARMA, Dr. Bowers Attending Provider Louie KINNEY, Dr. Alan Attending Provider Louie KINNEY, Dr. Alan Referring Provider Robinson Yepez Attending Unavailable Prah, Alonzo Referring Unavailable Scott, Waqas Primary Care Unavailable Prah, Alonzo Attending Unavailable Scott, Waqas Referring Unavailable Scott, Waqas Primary Care Unavailable Scott, Waqas Primary Care Unavailable Marleni, Robinson Attending Unavailable Robotham, Zahida Attending Unavailable Scott, Waqas Referring Unavailable Scott, Waqas Primary Care Unavailable Prah, Alonzo Attending Unavailable Scott, Waqas Referring Unavailable Scott, Waqas Primary Care Unavailable Scott, Waqas Primary Care Unavailable Marleni, Robinson Attending Unavailable Scott, Waqas Attending Unavailable Scott, Waqas Referring Unavailable Scott, Waqas Primary Care Unavailable Marleni, Robinson Attending Unavailable Marleni, Robinson Referring Unavailable Scott, Waqas Primary Care Unavailable Scott, Waqas Attending Unavailable Scott, Waqas Primary Care Unavailable Louie KINNEY, Dr. Alan Primary Care Provider [phone] Alvaro KINNEY, Dr. Rosado Attending Provider Alvaro KINNEY, Dr. Rosado Referring Provider Marleni SHARMA, Dr. Bowers Attending Provider Dr. Zahida Arroyo MD Attending Provider [phone] Renzo Ward MD Emergency Provider Dr. Dedrick Mckeon MD Admit Provider Unavailable Dr. Dedrick Mckeon MD Attending Provider Unavaila ble Allergies Allergy Classification Reported Allergen(s) Allergy Type Date of Onset Reaction(s) Facility (20 sources) Penicillins; Translations: [Penicillins] Drug Intolerance 03-13-20 12 Swelling [facility] (18 sources) Erythromycin Drug Allergy 03-18-20 20 Nausea [facility] (16 sources) Sulfamethoxazole Drug Allergy 08-28-19 22 Dizziness [facility] (16 sources) Trimethoprim Drug Allergy 08-28-19 [facility] (1 source) Erythromycin Drug Allergy 08-02-19 [facility] Repository (1 source) Sulfamethoxazole Drug Allergy 08-02-19 [facility] Repository (1 source) Trimethoprim Drug Allergy 08-02-19 [facility] Repository Medications Current Medications Medication Drug Class(es) Dates Sig (Normalized) Sig (Original) amLODIPine 5 mg oral tablet (18 sources) Dihydropyridine Calcium Channel Jina Start: 03-05-2020 take 2 tablets by mouth once daily Amlodipine 5 MG tablet Active 10 mg PO DAILY March 05, 2020 1:00am BP Start: 03-05-2020 take 10 mg by mouth once daily Amlodipine Active 10 MG PO DAILY March 05, 2020 1:00am anastrozole 1 mg oral tablet (19 sources) Aromatase Inhibitor Start: 05-05-2022 End: 07-22-2024 take 1 tablet by mouth once daily Anastrozole 1 mg tablet Active 1 mg PO DAILY 90 3 July 22, 2024 4:50pm Ascorbic Acid-Ascorbate Sodium 500 mg tablet,chewable (1 source) Start: 07-22-2024 Ascorbic Acid-Ascorbate Sodium 500 mg tablet,chewable Active 1 {tbl} PO DAILY July 22, 2024 12:00am aspirin 81 mg delayed release oral tablet (19 sources) Platelet Aggregation Inhibitor, Nonsteroidal Anti-inflammatory Drug Start: 07-22-2024 take 1 tablet by mouth every other day Aspirin (Adult Aspirin Regimen) 81 mg tablet,delayed release (DR/EC) Active 81 mg PO .every other day July 22, 2024 12:00am Start: 03-05-2020 End: 07-22-2024 take 1 tablet by mouth once daily Aspirin 81 MG tablet,chewable Discontinued 81 mg PO DAILY@0800 March 05, 2020 1:00am July 22, 2024 4:12pm HEART HEALTH On Hold: Resume on 01/08/22. cholecalciferol 0.05 mg oral capsule (18 sources) Vitamin D Start: 03-05-2020 Cholecalcifero l (Vitamin D3) 50 MCG capsule Active 2000 U PO DAILY March 05, 2020 1:00am SUPPLEMENT Start: 03-05-2020 take 2000 [IU] by mo [facility] once daily Cholecalciferol (Vitamin D3) Active 2000 UNIT PO DAILY March 05, 2020 1:00am Cranberry Extract-Vitamin C (16 sources) Start: 03-05-2020 Cranberry Extr act-Vitamin C Active 2 EACH PO DAILY March 05, 2020 2:55pm Start: 03-05-2020 Cranberry Extr act-Vitamin C Active 2 EACH PO DAILY March 05, 2020 12:00am Start: 03-05-2020 Cranberry Extr act-Vitamin C Active 2 EACH PO DAILY March 05, 2020 1:00am Cranberry Extract-Vitamin C 1 EACH capsule (2 sources) Start: 03-05-2020 Cranberry Extr act-Vitamin C 1 EACH capsule Active 2 NMA PO DAILY March 05, 2020 1:00am URINARY HEALTH Start: 03-05-2020 Cranberry Extr act-Vitamin C 1 EACH capsule Active 2 NMA PO DAILY March 05, 2020 1:00am 1 ml denosumab 60 mg/ml prefilled syringe (7 sources) RANK Ligand Inhibitor Start: 09-20-2022 Denosumab (Prolia) 60 mg/mL syringe Active 60 mg SC every 6 months September 20, 2022 12:00am diphenhydrAMINE hydrochloride 25 mg oral tablet (1 source) Histamine-1 Receptor Antagonist Start: 07-22-2024 take 1 tablet by mouth at bedtime as needed Diphenhydramine Hcl (Benadryl Allergy) 25 mg tablet Active 25 mg PO AT BEDTIME as needed for allergy symptoms July 22, 2024 12:00am lisinopril 20 mg oral tablet (18 sources) Angiotensin Converting Enzyme Inhibitor Start: 03-05-2020 take 1 tablet by mouth once daily Lisinopril 20 MG tablet Active 20 mg PO DAILY March 05, 2020 1:00am BP omeprazole 20 mg delayed release oral capsule (19 sources) Proton Pump Inhibitor Start: 10-01-2024 take 1 capsule by mouth at bedtime Omeprazole 20 mg capsule,delayed release(DR/EC) Active 20 mg PO AT BEDTIME October 01, 2024 12:00am Start: 03-05-2020 End: 10-01-2024 take 1 tablet by mouth once daily Omeprazole 20 MG tablet,disintegrat, delay rel Discontinued 20 mg PO DAILY March 05, 2020 1:00am October 01, 2024 12:59pm GERD 24 hr oxybutynin chloride 5 mg extended release oral tablet (19 sources) Cholinergic Muscarinic Antagonist Start: 10-01-2024 take 1 tablet by mouth once daily Oxybutynin Chloride 5 mg tablet extended release 24hr Active 5 mg PO DAILY October 01, 2024 12:00am Start: 03-05-2020 End: 10-01-2024 take 1 tablet by mouth once daily Oxybutynin Chloride 5 MG tablet Discontinued 5 mg PO DAILY March 05, 2020 1:00am October 01, 2024 12:59pm BLADDER Completed/Discontinued Medications Medication Drug Class(es) Dates Sig (Normalized) Sig (Original) hydroCHLOROthiazide 25 mg oral tablet (20 sources) Thiazide Diuretic Start: End: Hydrochlorothiazide 25 mg tablet Discontinued 12.5 mg PO DAILY April 15, 2024 10:41am July 22, 2024 4:12pm BP Start: 03-05-2020 End: 04-15-2024 take 1 tablet by mouth once daily Hydrochlorothiazide 25 MG tablet Discontinued 25 mg PO DAILY March 05, 2020 1:00am April 15, 2024 10:41am BP meloxicam 7.5 mg oral tablet (18 sources) Nonsteroidal Anti-inflammatory Drug Start: 03-05-2020 End: 10-11-2021 take 1 tablet by mouth once daily Meloxicam 7.5 MG tablet Discontinued 7.5 mg PO DAILY March 05, 2020 1:00am October 11, 2021 3:37pm ARTHRITIS traMADol hydrochloride 50 mg oral tablet (10 sources) Opioid Agonist Start: 01-05-2022 End: 01-29-2024 take 1 tablet by mouth every six hours as needed for pain Tramadol 50 mg tablet Discontinued 50 mg PO EVERY 6 HOURS as needed for pain 10 3 0 January 05, 2022 12:00am January 29, 2024 4:06pm Postoperative pain Other acute postprocedural pain Problems Problem Classification Problem Date Documented Date Episodic/Chronic Cancer of breast (20 sources) Malignant tumor of breast ; Translations: [Malignant neoplasm of unspecified site of unspecified female breast] Onset: 07-22-2024 Chronic Comment on above: L breast cancer inva sive ductal type, grade 2/3, ER/LA positive, Her2 negative, Ki67 55%, multifocal disease with L axillary metastasis-Locally advanced disease.S/P L mastectomy and axillary node dissection on 01/04/2022, Pathology shows Tumor size 3cm, margins negative, Lymph nodes 19 positive-pT2 pN3. Prognostic stage IIIC(pT2 pN3 pM0).PET/CT on 02/23/2022 showed no hypermetabolic activity suggestive of metastatic disease, bilateral subscapularis muscle activities.S/P adjuvant radiation therapy to L anterior chest.Bone density shows osteopenia.Started Anastrozole on 05/30/2022. Comes for follow up. Tolerating therapy. L breast cancer inva sive ductal type, grade 2/3, ER/LA positive, Her2 negative, Ki67 55%, multifocal disease with L axillary metastasis-Locally advanced disease.S/P L mastectomy and axillary node dissection on 01/04/2022, Pathology shows Tumor size 3cm, margins negative, Lymph nodes 19 positive-pT2 pN3. Prognostic stage IIIC(pT2 pN3 pM0).PET/CT on 02/23/2022 showed no hypermetabolic activity suggestive of metastatic disease, bilateral subscapularis muscle activities.S/P adjuvant radiation therapy to L anterior chest.Bone density shows osteopenia.Started Anastrozole on 05/30/2022. Comes for follow up. Labs reviewed, WNL. Tolerating therapy. Cancer of breast (1 source) Personal history of malignant neoplasm of breast; Translations: [Personal history of malignant neoplasm of breast] Onset: 08-14-2024 Episodic Cardiac dysrhythmias (4 sources) Atrial fibrillation; Translations: [Unspecified atrial fibrillation] 10-01-2024 Chronic Congestive heart failure; nonhypertensive (2 sources) Congestive heart failure; Translations: [Heart failure, unspecified] 10-01-2024 Chronic Disorders of lipid metabolism (1 source) Hyperlipidemia, unspecified; Translations: [Hyperlipidemia, unspecified] Onset: 08-14-2024 Chronic Essential hypertension (1 source) Essential (primary) hypertension; Translations: [Essential (primary) hypertension] Onset: 02-08-2024 Chronic Fluid and electrolyte disorders (3 sources) Hyponatremia; Translations: [Hypo-osmolality and hyponatremia] Onset: 01-29-2024 07-31-2023 Episodic Fracture of neck of femur (hip) (18 sources) Closed fracture of femur, subcapital; Translations: [Unspecified intracapsular fracture of right femur, initial encounter for closed fracture] 03-05-2020 Episodic Genitourinary symptoms and ill-defined conditions (5 sources) Scalding pain on urination ; Translations: [Dysuria] Onset: 01-29-2024 01-29-2024 Episodic Comment on above: Has taken Cipro for 14 days. Lymphadenitis (20 sources) Axillary lymphadenopathy; Translations: [Localized enlarged lymph nodes] Episodic Comment on above: left initially seen on MRI Nonmalignant breast conditions (20 sources) Thickening of skin of breast; Translations: [Other signs and symptoms in breast] Episodic Other bone disease and musculoskeletal deformities (8 sources) Postmenopausal osteopenia; Translations: [Other specified disorders of bone density and structure, unspecified site] 07-28-2022 Episodic Comment on above: Has dental clearance . Got Prolia, had low back pain for 4 weeks and does not want Prolia. Other bone disease and musculoskeletal deformities (4 sources) Other specified disorders of bone density and structure, unspecified site; Translations: [Disorder of bone and cartilage, unspecified] 07-28-2022 Episodic Other circulatory disease (18 sources) H/O: hypertension; Translations: [Personal history of other diseases of the circulatory system] 03-05-2020 Episodic Other circulatory disease (1 source) Personal history of other diseases of the circulatory system; Translations: [Personal history of other diseases of the circulatory system] Onset: 08-14-2024 Episodic Other diseases of kidney and ureters (11 sources) Renal mass; Translations: [Other specified disorders of kidney and ureter] 03-07-2022 Chronic Comment on above: 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 Bennett and he suggested observation. Other diseases of kidney and ureters (10 sources) Other specified disorders of kidney and ureter; Translations: [Unspecified disorder of kidney and ureter] Onset: 01-29-2024 Chronic Other diseases of veins and lymphatics (9 sources) Lymphedema; Translations: [Lymphedema, not elsewhere classified] 03-07-2022 Chronic Comment on above: L arm improving. Due to L breast and axillary surgery, Other diseases of veins and lymphatics (6 sources) Lymphedema, not elsewhere classified; Translations: [Other lymphedema] Onset: 01-29-2024 05-05-2022 Chronic Other nervous system disorders (2 sources) Anesthesia of skin; Translations: [Anesthesia of skin] Onset: 07-22-2024 Episodic Other nervous system disorders (2 sources) Paresthesia of skin; Translations: [Paresthesia of skin] Onset: 07-22-2024 Episodic Other nervous system disorders (2 sources) Paresthesia of hand ; Translations: [Anesthesia of skin] 07-22-2024 Episodic Other screening for suspected conditions (not mental disorders or infectious disease) (20 sources) Ultrasonography of breast abnormal; Translations: [Other abnormal and inconclusive findings on diagnostic imaging of breast] Onset: 10-11-2023 Episodic Comment on above: Given a BI-RADS 4 bu t also recommended MRI Other skin disorders (1 source) Localized swelling, mass and lump, unspecified; Translations: [Localized swelling, mass and lump, unspecified] Onset: 07-22-2024 Episodic Other skin disorders (3 sources) Skin nodule; Translations: [Localized swelling, mass and lump, unspecified] Episodic Comment on above: Soft cutaneous nodul e in L armpit. Other skin disorders (2 sources) Sebaceous cyst of skin; Translations: [Sebaceous cyst] 08-02-2024 Episodic Pleurisy; pneumothorax; pulmonary collapse (2 sources) Bilateral pleural effusion; Translations: [Pleural effusion, not elsewhere classified] 10-01-2024 Episodic Residual codes; unclassified (10 sources) History of left mastectomy; Translations: [Acquired absence of left breast and nipple] 01-04-2022 Episodic Comment on above: with Left ALND 2021 Residual codes; unclassified (5 sources) Acquired absence of left breast and nipple; Translations: [Acquired absence of breast and nipple] Episodic Unclassified (2 sources) R22.9 - Localized swelling, mass and lump, unspecified Urinary tract infections (3 sources) Urinary tract infection, site not specified; Translations: [Acute cystitis] Onset: 07-18-2024 10-01-2024 Episodic Results Test Name Value Interpretation Reference Range Facility Absolute lymphocyte countOrd ered By: Renzo Ward on 10-01-2024 Lymphocytes Auto (Unsp spec) [#/Vol] 0.76 10*3/uL Low 0.83-4.51 [facility] Absolute neutrophil countOrd ered By: Renzo Ward on 10-01-2024 Neutrophils (Bld) [#/Vol] 7.4 10*3/uL 2.0-7.7 [facility] Anion gap in Serum or Plasma Ordered By: Renzo Ward on 10-01-2024 Anion gap [Moles/Vol] 14 mmol/L 5-15 [facility] Automated lymphocyte count a s percentage of total leukocytesOrdered By: Renzo Ward on 10-01-2024 Lymphocytes/100 WBC Auto (Unsp spec) 8.3 % Low 19-41 [facility] BUN/creatinine ratioOrdered By: Renzo Ward on 10-01-2024 Urea nitrogen/Creatinine [Mass ratio] 22.9 mg/mg High 10-20 [facility] Basophil percentageOrdered B y: Renzo Ward on 10-01-2024 Basophils/100 WBC (Bld) 0.7 % 0-1 [facility] Bilirubin Test strip Ql (U)O rdered By: Renzo Ward on 10-01-2024 Bilirubin Ql (U) Negative Negative [facility] Carbon dioxide, total [Moles /volume] in Central venous bloodOrdered By: Renzo Ward on 10-01-2024 CO2 [Moles/Vol] 20.6 mmol/L Low 21.0-32.0 [facility] Chloride assayOrdered By: Mike Ward on 10-01-2024 Chloride [Moles/Vol] 100 mmol/L 98-108 [facility] Eosinophil percentageOrdered By: Renzo Ward on 10-01-2024 Eosinophils/100 WBC (Bld) 1.1 % 0-5 [facility] Erythrocyte distribution wid th ratioOrdered By: Renzo Ward on 10-01-2024 Erythrocyte distribution width (RBC) [Ratio] 15.5 % High 11.6-14.6 [facility] Erythrocyte distribution wid th standard deviationOrdered By: Renzo Ward on 10-01-2024 Erythrocyte distribution width (RBC) [Ratio] 51.1 fl High 35.1-43.9 [facility] Glomerular filtration rate ( GFR) estimation/1.73 sq m using serum, plasma, or whole bOrdered By: Renzo Ward on 10-01-2024 GFR/1.73 sq M.predicted among non-blacks MDRD (S/P/Bld) [Vol rate/Area] 42 mL/min/{1.73_m2} Low >60 [facility] Comment on above: mL/min/1.73m2 CKD-EP I Creatinine Equation (2020) Hematocrit Auto (Bld) [Volum e fraction]Ordered By: Renzo Ward on 10-01-2024 Hematocrit (Bld) [Volume fraction] 34.1 % Low 37-47 [facility] Hemoglobin measurementOrdere d By: Renzo Ward on 10-01-2024 Hemoglobin (Bld) [Mass/Vol] 10.9 g/dL Low 12.0-15.0 [facility] Immature granulocytes/100 WB C Auto (Bld)Ordered By: Renzo Ward on 10-01-2024 Immature granulocytes/100 WBC (Bld) 0.500 % 0.0-0.9 [facility] Comment on above: IG% - Immature Granu locytes (promyelocytes, myelocytes and metamyelocytes) > 1% indicates that a LEFT SHIFT is Present. Ketones Test strip Ql (U)Ord ered By: Renzo Ward on 10-01-2024 Ketones Ql (U) Negative Negative [facility] MCV (mean corpuscular volume ) determinationOrdered By: Renzo Ward on 10-01-2024 MCV (RBC) [Entitic vol] 91.7 fL 81-99 [facility] Mean corpuscular hemoglobin (MCH) determinationOrdered By: Renzo Ward on 10-01-2024 MCH (RBC) [Entitic mass] 29.3 pg 27.0-32.0 [facility] Mean corpuscular hemoglobin concentration (MCHC) determinationOrdered By: Renzo Ward on 10-01-2024 MCHC (RBC) [Mass/Vol] 32.0 g/dL 32-36 [facility] Mean platelet volume determi nationOrdered By: Renzo Ward on 10-01-2024 Platelet mean volume (Bld) [Entitic vol] 11.0 fL 6.2-12.0 [facility] Microscopic analysis of urin e for red blood cells (RBC)Ordered By: Renzo Ward on 10-01-2024 Microscopic analysis of urine for red blood cells (RBC) 0 SEEN /hpf 0-5 [facility] Monocyte percentageOrdered B y: Renzo Ward on 10-01-2024 Monocytes/100 WBC (Bld) 8.5 % 0-10 [facility] Mucus LM Ql (Urine sed)Order ed By: Renzo Ward on 10-01-2024 Mucus Ql (Urine sed) 0 SEEN /hpf [facility] Natriuretic peptide.B prohor brenda N-Terminal [Mass/volume] in Serum or PlasmaOrdered By: Renzo Ward on 10-01-2024 Natriuretic peptide.B prohormone N-Terminal [Mass/Vol] 3284 pg/mL High <1800 [facility] Comment on above: Heart Failure Unlike ly: < 300 pg/mLHeart Failure Likely< 50 Years: > 450 pg/mL50-75 Years: > 900 pg/mL>75 Years: > 1800 pg/mL Neutrophil percentageOrdered By: Renzo Ward on 10-01-2024 Neutrophils/100 WBC (Bld) 80.9 % High 47-70 [facility] Nitrite Test strip Ql (U)Ord ered By: Renzo Ward on 10-01-2024 Nitrite Ql (U) Positive High Negative [facility] Nucleated red blood cell per centageOrdered By: Renzo Ward on 10-01-2024 Nucleated RBC/100 WBC (Bld) [Ratio] 0 % 0-5 [facility] Platelet countOrdered By: Mike Ward on 10-01-2024 Platelets (Bld) [#/Vol] 317 10*3/uL 150-450 [facility] Potassium measurement (mass/ volume)Ordered By: Renzo Ward on 10-01-2024 Potassium (Unsp spec) [Mass/Vol] 4.1 mmol/L 3.3-5.1 [facility] Protein Test strip Ql (U)Ord ered By: Renzo Ward on 10-01-2024 Protein Ql (U) 30 mg/dl High Negative [facility] RBC Auto (Bld) [#/Vol]Ordere d By: Renzo Ward on 10-01-2024 RBC (Bld) [#/Vol] 3.72 10*6/uL Low 4.2-5.4 [facility] Serum creatinine measurement (mass/volume)Ordered By: Renzo Ward on 10-01-2024 Creatinine [Mass/Vol] 1.23 mg/dL High 0.70-1.20 [facility] Serum glucose measurement (m ass/volume)Ordered By: Renzo Ward on 10-01-2024 Glucose [Mass/Vol] 86 mg/dL 70-99 [facility] Serum or plasma calcium krysten urement (mass/volume)Ordered By: Renzo Ward on 10-01-2024 Calcium [Mass/Vol] 9.3 mg/dL 7.6-11.0 [facility] Serum or plasma urea nitroge n measurement (mass/volume)Ordered By: Renzo Ward on 10-01-2024 Urea nitrogen [Mass/Vol] 28 mg/dL High 4-19 [facility] Sodium levelOrdered By: Renzo Ward on 10-01-2024 Sodium [Moles/Vol] 134 mmol/L 133-145 [facility] Squamous epithelial cells de tection in urine sediment by light microscopyOrdered By: Renzo Ward on 10-01-2024 Epithelial cells.squamous LM Ql (Urine sed) 0 SEEN /hpf 5-10 [facility] Urine clarityOrdered By: Maryuri Ward on 10-01-2024 Clarity (U) Sl. Cloudy Clear [facility] Urine color determinationOrd ered By: Renzo Ward on 10-01-2024 Color (U) Yellow Yellow [facility] Urine glucose detectionOrder ed By: Renzo Ward on 10-01-2024 Glucose Ql (U) Normal mg/dl Normal [facility] Urine leukocyte esterase det ection by dipstickOrdered By: Renzo Ward on 10-01-2024 Leukocyte esterase Test strip Ql (U) 500 /ul High Negative [facility] Urine pHOrdered By: Renzo sebastian on 10-01-2024 pH (U) 6.0 [pH] 5.0 - 8.0 [facility] Urine sediment bacteria coun t by microscopy (number/high power field)Ordered By: Renzo Ward on 10-01-2024 Bacteria LM.HPF (Urine sed) [#/Area] 2 /[HPF] None Seen [facility] Urine sediment renal epithel ial cell count by microscopy (number/high power field)Ordered By: Renzo Ward on 10-01-2024 Epithelial cells.renal LM.HPF (Urine sed) [#/Area] 0 /[HPF] 0-5 [facility] Urine specific gravity measu rementOrdered By: Renzo Ward on 10-01-2024 Specific gravity (U) [Rel density] 1.015 1.002-1.030 [facility] Urine urobilinogen measureme ntOrdered By: Renzo Ward on 10-01-2024 Urobilinogen Ql (U) Normal mg/dl Normal [facility] White blood cell (WBC) count Ordered By: Renzo Ward on 10-01-2024 WBC (Bld) [#/Vol] 9.1 10*3/uL 4.4-11.0 [facility] White blood cell countOrdere d By: Renoz Ward on 10-01-2024 White blood cell count 10-25 SEEN /hpf 0-5 [facility] Surgery Visit Reporton 08-01 Surgery Visit Report [facility] [address] [place] [address]. [address] [place] [address] OFFICE VISIT Date of Service: 08/01/24 MR#: [id number] Acct: [id number] Name: NESTOR MONTES DE OCA I Rep #: [id number] : 1935 Provider: Dr. Zahida scott MD Age/Sex: 89/F Location: [facility] Status: Signed Intake Vital Signs 07/22/24 16:02 08/01/24 08:57 Height 4 ft 10 in Weight: 149 lb BMI 31.1 BP 145/71 H 160/95 H Blood Pressure Location Lt brachial Rt brachial Position Sitting Sitting Respiration 18 17 Pulse 70 102 H Pulse Source Monitor Monitor Temp 98.3 F Pulse Oximetry (%) 99 100 Oxygen Delivery Method room air room air Intake Visit Reasons: LUMP L ARMPIT Chief Complaint: skin nodule left axilla Is patient in pain?: No Allergies sulfamethoxazole (From ) Allergy (Intermediate, Verified 08/01/24 09:02) Dizziness trimethoprim (From Decra) Allergy (Intermediate, Verified 08/01/24 09:02) Dizziness Penicillins (PCN) Allergy (Verified 08/01/24 09:02) Swelling erythromycin base Adverse Reaction (Verified 08/01/24 09:02) Nausea Medications ???Medication ???Instructions ???Recorded ???Confirmed ???Type amlodipine 5 mg tablet 10 mg PO DAILY BP 03/05/20 5 History cholecalciferol (vitamin D3) 50 2,000 unit PO DAILY SUPPLEMENT 06/2008/01/24 History mcg (2,000 unit) capsule cranberry extract-vitamin C 250 2 ea PO DAILY URINARY HEALTH 03/0508/01/24 History mg-60 mg capsule lisinopril 20 mg tablet 20 mg PO DAILY BP 03/05/20 5 History omeprazole 20 mg delayed 20 mg PO DAILY GERD 03/05/2008/01 History release,disintegrating tablet oxybutynin chloride 5 mg tablet 5 mg PO DAILY BLADDER 03/05/2004/27 History denosumab 60 mg/mL subcutaneous 60 mg subcut [id number] 09/20/2204/27 History syringe (Prolia) premier protein 30 g PO .every other day 01/29/2408/01 History anastrozole 1 mg tablet 1 mg PO DAILY #90 tabs 07/22/24 Rx ascorbic acid-ascorbate sodium tab PO DAILY 07/22/24 08/01/24 His tory (vitamin C) 500 mg chewable tablet aspirin 81 mg tablet,delayed 81 mg PO .every other day 07/22/24 08/01/24 History release (Adult Aspirin Regimen) diphenhydramine HCl 25 mg tablet 25 mg PO QHS PRN 07/22/24 08/01/24 History (Benadryl Allergy) Have you fallen in the past year?: No PFSH Medical History Wears hearing aid Wears glasses Ambulates with cane DVT (deep venous thrombosis) Non-smoker History of echocardiogram GERD (gastroesophageal reflux disease) Constipation Arthritis Back problem Breast cancer HTN (hypertension) Surgical History History of left mastectomy Hx of knee surgery History of lymph node biopsy ( 10/2021) History of breast biopsy ( 10/2021) History of History of lumpectomy of left breast History of hysterectomy Family History Mother Myocardial infarction Diabetes Father Myocardial infarction Diabetes Sister Colon cancer Aunt Cancer Breast Social History household members: spouse and other details: daughter and son-in-law, grandchildren housing: house Smoking Status: Never smoker alcohol intake: current alcohol intake frequency: a few times a week Alcohol type: wine what type of physical activity do you participate in: none do you feel safe at home: Yes HPI HPI HPI: 89-year-old female presents due to left axillary lump. Patient has had it for a little while has talked with Dr. John previously who said it was benign subcutaneous nodule per patient. Patient comes in as it is gotten a little bit larger but otherwise patient denies any infection or pain due to this. ROS General General: Yes weight change, fatigue and breast cancer; No appetite, colon cancer or weakness HEENT HEENT: No difficulty swallowing, eye injury, eye surgery, swollen glands or hoarseness Endo Endocrine: No thyroid disease, diabetes mellitus, thyroid cancer, Hair loss, heat intolerance or cold intolerance Skin Skin: No rash or changing moles Musc Musculoskeletal: Yes arthritis; No back problems, rheumatoid arthritis, gout or joint pain Cardio Cardiovascular: Yes high blood pressure; No murmur, pacemaker, heart disease, atrial fibrillation, heart attack, heart stent, palpitations, shortness of breath with exertion or chest pain Psych Psychiatric: No depression, anxiety or hearing voices Resp Respiratory: No shortness of breath, No sleep apnea, No cough, No COPD, No asthma, No emphysema and No wheezing Gastro Gastrointestinal: No abdominal pain, No nausea or v (more content not included)... Normal [facility] CA 15-3on 07-24-2024 CA 15-3 30.8 U/mL Abnormal 0.0-25.0 [facility] Comment on above: Result Comment: [employer] Electrochemiluminescence Immunoassay (ECLIA) Values obtained with different assay methods or kits cannot be used interchangeably. Results cannot be interpreted as absolute evidence of the presence or absence of malignant disease. Performed at: [address] [id number] Focus Puller: Edy Lovett PhD, Phone: [phone] Performed By: #### L 3100.5030, L3100.5040 ####[facility] [address] [facility]. [place], [place], [id number] CA 27.29on 07-24-2024 CA 27.29 30.9 U/mL Normal 0.0-38.6 [facility] Comment on above: Result Comment: [employer] Immunochemiluminometric Methodology (ICMA) Values obtained with different assay methods or kits cannot be used interchangeably. Results cannot be interpreted as absolute evidence of the presence or absence of malignant disease. Performed By: #### L 3100.5030, L3100.5040 ####[facility] [address] [facility]. [place], [place], [id number] Absolute lymphocyte countOrd ered By: Alonzo John on 07-22-2024 Lymphocytes Auto (Unsp spec) [#/Vol] 1.44 10*3/uL 0.83-4.51 [facility] Absolute neutrophil countOrd ered By: Alonzo John on 07-22-2024 Neutrophils (Bld) [#/Vol] 6.0 10*3/uL 2.0-7.7 [facility] Anion gap in Serum or Plasma Ordered By: Alonzo John on 07-22-2024 Anion gap [Moles/Vol] 11 mmol/L 5-15 [facility] Automated lymphocyte count a s percentage of total leukocytesOrdered By: Alonzo John on 07-22-2024 Lymphocytes/100 WBC Auto (Unsp spec) 17.0 % Low 19-41 [facility] BUN/creatinine ratioOrdered By: Alonzo John on 07-22-2024 Urea nitrogen/Creatinine [Mass ratio] 27.6 mg/mg High 10-20 [facility] Basophil percentageOrdered B y: Alonzo John on 07-22-2024 Basophils/100 WBC (Bld) 0.6 % 0-1 [facility] Bilirubin, totalOrdered By: Alonzo John on 07-22-2024 Bilirubin [Mass/Vol] 0.23 mg/dL 0.00-1.30 [facility] CA 15-3Ordered By: Alonzo garcia on 07-22-2024 CA 15-3 30.8 U/mL High 0.0-25.0 [facility] Comment on above: [employer] El ectrochemiluminescence Immunoassay(ECLIA)Values obtained with different assay methods or kits cannotbe used interchangeably. Results cannot be interpreted asabsolute evidence of the presence or absence of malignantdisease.Performed at: [email or web address] [address] [id number] Director: Edy Lovett PhD, Phone: [phone] CA 27.29Ordered By: Alonzo pace on 07-22-2024 CA 27.29 30.9 U/mL 0.0-38.6 [facility] Comment on above: [employer] Immu nochemiluminometric Methodology (ICMA)Values obtained with different assay methods or kits cannotbe used interchangeably. Results cannot be interpreted asabsolute evidence of the presence or absence of malignantdisease. CBC W/Diff, Automatedon 07-03 Absolute Lymph 1.44 X10 3/uL Normal 0.83-4.51 [facility] Comment on above: Performed By: #### L 500.4050, L100.0100, L504.2610 ####[facility] [address] [place], [place], [id number] Absolute Neut 6.0 X10 3/uL Normal 2.0-7.7 [facility] Comment on above: Performed By: #### L 500.4050, L100.0100, L504.2610 ####[facility] [address] [place], [address] Basophils/100 WBC (Bld) 0.6 % Normal 0-1 [facility] Comment on above: Performed By: #### L 500.4050, L100.0100, L504.2610 ####[facility] [address] [place], [address] Eosinophils/100 WBC (Bld) 2.0 % Normal 0-5 [facility] Comment on above: Performed By: #### L 500.4050, L100.0100, L504.2610 ####[facility] [address] [place], [address] Erythrocyte distribution width (RBC) [Ratio] 14.0 % Normal 11.6-14.6 [facility] Comment on above: Performed By: #### L 500.4050, L100.0100, L504.2610 ####[facility] [address] [place], [address] Hematocrit (Bld) [Volume fraction] 36.6 % Low 37-47 [facility] Comment on above: Performed By: #### L 500.4050, L100.0100, L504.2610 ####[facility] [address] [place], [address] Hemoglobin (Bld) [Mass/Vol] 11.9 g/dL Low 12.0-15.0 [facility] Comment on above: Performed By: #### L 500.4050, L100.0100, L504.2610 ####[facility] [address] [place], [address] IG% 0.500 Normal 0.0-0.9 [facility] Comment on above: Result Comment: IG% - Immature Granulocytes (promyelocytes, myelocytes and metamyelocytes) > 1% indicates that a LEFT SHIFT is Present. Performed By: #### L 500.4050, L100.0100, L504.2610 ####[facility] [address] [place], [address] Lymphocytes/100 WBC (Bld) 17.0 % Low 19-41 [facility] Comment on above: Performed By: #### L 500.4050, L100.0100, L504.2610 ####[facility] [address] [place], [address] MCH (RBC) [Entitic mass] 29.1 pg Normal 27.0-32.0 [facility] Comment on above: Performed By: #### L 500.4050, L100.0100, L504.2610 ####[facility] [address] [place], [address] MCHC (RBC) [Mass/Vol] 32.5 g/dL Normal 32-36 [facility] Comment on above: Performed By: #### L 500.4050, L100.0100, L504.2610 ####[facility] [address] [place], [address] MCV (RBC) [Entitic vol] 89.5 fL Normal 81-99 [facility] Comment on above: Performed By: #### L 500.4050, L100.0100, L504.2610 ####[facility] [address] [place], [address] Monocytes/100 WBC (Bld) 9.6 % Normal 0-10 [facility] Comment on above: Performed By: #### L 500.4050, L100.0100, L504.2610 ####[facility] [address] [place], [address] Neutrophils/100 WBC (Bld) 70.3 % High 47-70 [facility] Comment on above: Performed By: #### L 500.4050, L100.0100, L504.2610 ####[facility] [address] [place], [address] Nucleated RBC (Bld) [#/Vol] 0 10*3/uL Normal 0-5 [facility] Comment on above: Performed By: #### L 500.4050, L100.0100, L504.2610 ####[facility] [address] [place], [address] Platelet mean volume (Bld) [Entitic vol] 11.2 fL Normal 6.2-12.0 [facility] Comment on above: Performed By: #### L 500.4050, L100.0100, L504.2610 ####[facility] [address] [place], [address] Platelets (Bld) [#/Vol] 283 10*3/uL Normal 150-450 [facility] Comment on above: Performed By: #### L 500.4050, L100.0100, L504.2610 ####[facility] [address] [place], [address] RBC (Bld) [#/Vol] 4.09 10*6/uL Low 4.2-5.4 [facility] Comment on above: Performed By: #### L 500.4050, L100.0100, L504.2610 ####[facility] [address] [place], [address] RDW SD 45.7 fl High 35.1-43.9 [facility] Comment on above: Performed By: #### L 500.4050, L100.0100, L504.2610 ####[facility] [address] [place], [address] WBC (Bld) [#/Vol] 8.5 10*3/uL Normal 4.4-11.0 [facility] Comment on above: Performed By: #### L 500.4050, L100.0100, L504.2610 ####[facility] [address] [place], [place], [address] Carbon dioxide, total [Moles /volume] in Central venous bloodOrdered By: Alonzo John on 07-22-2024 CO2 [Moles/Vol] 23.2 mmol/L 21.0-32.0 [facility] Cerv Spine 2 or 3 Viewson Cerv Spine 2 or 3 Views [facility] Services [address] [place] [address] Cerv Spine 2 or 3 Views MR#: [id number] Acct: [id number] Name: NESTOR MONTES DE OCA I Rep #: [id number] : 1935 F 89 From: Bruce Evans MD PCP: Dr. Waqas Scott MD Status: REG RCR Study: Cerv Spine 2 or 3 Views Date of Exam: 07/22/24 Exam# [id number] Ordering Dr: Alonzo John MD PROCEDURE: CERV SPINE 2 OR 3 VIEWS 07/22/2024 REASON FOR EXAM: NUMBNESS AND TINGLING IN L HAND TECHNIQUE: 3 views of the cervical spine. COMPARISON: No relevant prior FINDINGS: Vertebrae: Normal in height. Osteopenia. Mild multilevel spondylosis. Disc spaces: Generalized narrowing at C3 through C6. marked narrowing of C6-7 interspace. Alignment: No retrolisthesis or anterolisthesis. Facets: Multilevel arthropathy. Soft tissues: Unremarkable. Other: Unremarkable. RAD/Cerv Spine 2 or 3 Views IMPRESSION: Multilevel spondylosis. Osteopenia. Multilevel degenerative disc disease. Reading Location: [facility] CC: Dr. Alonzo John MD; Dr. Waqas Scott MD Multi [employer] Claims Adjuster: Signed Normal [facility] Chloride assayOrdered By: Negar John on 07-22-2024 Chloride [Moles/Vol] 101 mmol/L 98-108 [facility] Comprehensive Metabolic Prof ilon 07-22-2024 Albumin [Mass/Vol] 3.9 g/dL Normal 3.4-4.8 [facility] Comment on above: Performed By: #### L 500.4050, L100.0100, L504.2610 ####[facility] [address] [place], [address] Albumin/Globulin [Mass ratio] 1.1 {ratio} Normal 0.9-2.4 [facility] Comment on above: Performed By: #### L 500.4050, L100.0100, L504.2610 ####[facility] [address] [place], [address] ALK PHOS 71 U/L Normal 35-104 [facility] Comment on above: Performed By: #### L 500.4050, L100.0100, L504.2610 ####[facility] [address] [place], [address] ALT [Catalytic activity/Vol] 5 U/L Normal <=34 [facility] Comment on above: Performed By: #### L 500.4050, L100.0100, L504.2610 ####[facility] [address] [place], [address] AST [Catalytic activity/Vol] 20 U/L Normal <=31 [facility] Comment on above: Performed By: #### L 500.4050, L100.0100, L504.2610 ####[facility] [address] [place], [address] Bilirubin [Mass/Vol] 0.23 mg/dL Normal 0.00-1.30 [facility] Comment on above: Performed By: #### L 500.4050, L100.0100, L504.2610 ####[facility] [address] [place], [address] BUN/CRE 27.6 RATIO High 10-20 [facility] Comment on above: Performed By: #### L 500.4050, L100.0100, L504.2610 ####[facility] [address] [place], [address] Calcium [Mass/Vol] 9.6 mg/dL Normal 7.6-11.0 [facility] Comment on above: Performed By: #### L 500.4050, L100.0100, L504.2610 ####[facility] [address] [place], [address] Chloride [Moles/Vol] 101 mmol/L Normal 98-108 [facility] Comment on above: Performed By: #### L 500.4050, L100.0100, L504.2610 ####[facility] [address] [place], [address] CO2 [Moles/Vol] 23.2 mmol/L Normal 21.0-32.0 [facility] Comment on above: Performed By: #### L 500.4050, L100.0100, L504.2610 ####[facility] [address] [place], [address] Creatinine [Mass/Vol] 1.14 mg/dL Normal 0.70-1.20 [facility] Comment on above: Performed By: #### L 500.4050, L100.0100, L504.2610 ####[facility] [address] [place], [address] ECRCL 29.30 ml/min Low 50-250 [facility] Comment on above: Performed By: #### L 500.4050, L100.0100, L504.2610 ####[facility] [address] [place], [address] GAP 11 Normal 5-15 [facility] Comment on above: Performed By: #### L 500.4050, L100.0100, L504.2610 ####[facility] [address] [place], [address] GFR/1.73 sq M.predicted among non-blacks MDRD (S/P/Bld) [Vol rate/Area] 46 mL/min/{1.73_m2} Low >60 [facility] Comment on above: Result Comment: mL/m in/1.73m2 CKD-EPI Creatinine Equation (2020) Performed By: #### L 500.4050, L100.0100, L504.2610 ####[facility] [address] [place], [address] Globulin (S) [Mass/Vol] 3.5 g/dL Normal 2.2-4.2 [facility] Comment on above: Performed By: #### L 500.4050, L100.0100, L504.2610 ####[facility] [address] [place], [address] Glucose [Mass/Vol] 118 mg/dL High 70-99 [facility] Comment on above: Performed By: #### L 500.4050, L100.0100, L504.2610 ####[facility] [address] [place], [address] Potassium [Moles/Vol] 4.8 mmol/L Normal 3.3-5.1 [facility] Comment on above: Performed By: #### L 500.4050, L100.0100, L504.2610 ####[facility] [address] [place], [address] Sodium [Moles/Vol] 136 mmol/L Normal 133-145 [facility] Comment on above: Performed By: #### L 500.4050, L100.0100, L504.2610 ####[facility] [address] [place], [address] T PROT 7.4 g/dL Normal 5.9-8.4 [facility] Comment on above: Performed By: #### L 500.4050, L100.0100, L504.2610 ####[facility] [address] [place], [address] Urea nitrogen [Mass/Vol] 32 mg/dL High 4-19 [facility] Comment on above: Performed By: #### L 500.4050, L100.0100, L504.2610 ####[facility] [address] [place], [address] Eosinophil percentageOrdered By: Alonzo John on 07-22-2024 Eosinophils/100 WBC (Bld) 2.0 % 0-5 [facility] Erythrocyte distribution wid th ratioOrdered By: [facility] on 07-22-2024 Erythrocyte distribution width (RBC) [Ratio] 14.0 % 11.6-14.6 [facility] Erythrocyte distribution wid th standard deviationOrdered By: [facility] on 07-22-2024 Erythrocyte distribution width (RBC) [Ratio] 45.7 fl High 35.1-43.9 [facility] Glomerular filtration rate ( GFR) estimation/1.73 sq m using serum, plasma, or whole bOrdered By: [facility] on 07-22-2024 GFR/1.73 sq M.predicted among non-blacks MDRD (S/P/Bld) [Vol rate/Area] 46 mL/min/{1.73_m2} Low >60 [facility] Comment on above: mL/min/1.73m2 CKD-EP I Creatinine Equation (2020) Hematocrit Auto (Bld) [Volum e fraction]Ordered By: Alonzo John on 07-22-2024 Hematocrit (Bld) [Volume fraction] 36.6 % Low 37-47 [facility] Hemoglobin measurementOrdere d By: [facility]zo [facility] on 07-22-2024 Hemoglobin (Bld) [Mass/Vol] 11.9 g/dL Low 12.0-15.0 [facility] Immature granulocytes/100 WB C Auto (Bld)Ordered By: Alonzo John on 07-22-2024 Immature granulocytes/100 WBC (Bld) 0.500 % 0.0-0.9 [facility] Comment on above: IG% - Immature Granu locytes (promyelocytes, myelocytes and metamyelocytes) > 1% indicates that a LEFT SHIFT is Present. LDHon 07-22-2024 LDH 145 U/L Normal 84-246 [facility] Comment on above: Order Comment: 1 Performed By: #### L 500.4050, L100.0100, L504.2610 ####[facility] [address] [place], [address] Laboratory - Chemistry and C hemistry - challengeOrdered By: Alonzo John on 07-22-2024 AST [Catalytic activity/Vol] 20 U/L <32 [facility] Lactate dehydrogenase (LDH) measurementOrdered By: Alonzo John on 07-22-2024 LDH [Catalytic activity/Vol] 145 U/L 84-246 [facility] MCV (mean corpuscular volume ) determinationOrdered By: Alonzo John on 07-22-2024 MCV (RBC) [Entitic vol] 89.5 fL 81-99 [facility] Mean corpuscular hemoglobin (MCH) determinationOrdered By: Alonzo John on 07-22-2024 MCH (RBC) [Entitic mass] 29.1 pg 27.0-32.0 [facility] Mean corpuscular hemoglobin concentration (MCHC) determinationOrdered By: Alonzo John on 07-22-2024 MCHC (RBC) [Mass/Vol] 32.5 g/dL 32-36 [facility] Mean platelet volume determi nationOrdered By: Alonzo John on 07-22-2024 Platelet mean volume (Bld) [Entitic vol] 11.2 fL 6.2-12.0 [facility] Monocyte percentageOrdered B y: Alonzo John on 07-22-2024 Monocytes/100 WBC (Bld) 9.6 % 0-10 [facility] Neutrophil percentageOrdered By: Alonzo John on 07-22-2024 Neutrophils/100 WBC (Bld) 70.3 % High 47-70 [facility] Nucleated red blood cell per centageOrdered By: Alonzo John on 07-22-2024 Nucleated RBC/100 WBC (Bld) [Ratio] 0 % 0-5 [facility] Oncology Visit Reporton 07-03 Oncology Visit Report [facility] [address] [place] [address] OFFICE VISIT Date of Service: 07/22/24 1602 MR#: [id number] Acct: [id number] Name: NESTOR MONTES DE OCA I Rep #: [id number] : 1935 From: Alonzo John MD Age/Sex: 89/F Location: [facility] [place] Status: Signed HPI Subjective Date of Service 07/22/24 Chief Complaint F/u for L breast cancer History of Present Illness 89y.o.woman found a lump in her left breast/armpit. 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 She had mammogram and ultrasound done in August 2021. She then had MRI of the breast done on 09/08/2021 which showed multiple left breast nodules and left axillary nodes suggestive suggestive of malignancy. She had ultrasound-guided biopsy of left breast nodule at 2 o'clock position and left axillary node on 10/01/2021. 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 She was referred for further evaluation and management. Had CT c/a/p on 10/21/2021 showed L axillary adenopathy, L kidney complex cyst. Bone scan done on 10/21/2021 was negative. She had L mastectomy and axillary dissection on 01/04/2022. Pathology showed Invasive ductal carcinoma, tumor size 3cm, margins negative, Lymph nodes 19 positive-pT2 pN3. Prognostic stage IIIC(pT2 pN3 pM0). Bone density done 01/27/22 shows osteopenia. Received adjuvant Radiation therapy to L anterior chest from 04/05/2022 to 04/26/2022. Started Anastrozole on 05/30/2022. Started Prolia on 07/28/2022. Got body aches so decided to stop. Comes for follow up. Has slight swelling of the L arm and armpit which is stable. Feels well. [facility] Medical History Wears hearing aid Wears glasses Ambulates with cane DVT (deep venous thrombosis) Non-smoker History of echocardiogram GERD (gastroesophageal reflux disease) Constipation Arthritis Back problem Breast cancer HTN (hypertension) Surgical History History of left mastectomy Hx of knee surgery History of lymph node biopsy ( 10/2021) History of breast biopsy ( 10/2021) History of History of lumpectomy of left breast History of hysterectomy Family History Mother Myocardial infarction Diabetes Father Myocardial infarction Diabetes Sister Colon cancer Aunt Cancer Breast Social History household members: spouse and other details: daughter and son-in-law, grandchildren housing: house Smoking Status: Never smoker alcohol intake: current alcohol intake frequency: a few times a week Alcohol type: wine what type of physical activity do you participate in: none do you feel safe at home: Yes Intake Vital Signs 01/29/24 15:58 07/22/24 16:02 Height 4 ft 10 in 4 ft 10 in Weight: 67.585 kg BMI 31.1 BP 145/71 H Blood Pressure Location Lt brachial Position Sitting Respiration 18 Pulse 70 Pulse Source Monitor Temp 98.3 F Temperature Source Temporal Artery Pulse Oximetry (%) 99 Oxygen Delivery Method room air Intake Is patient in pain?: No Allergies sulfamethoxazole (From Septra) Allergy (Intermediate, Verified 07/22/24 16:09) Dizziness trimethoprim (From Septra) Allergy (Intermediate, Verified 07/22/24 16:09) Dizziness Penicillins (PCN) Allergy (Verified 07/22/24 16:09) Swelling erythromycin base Adverse Reaction (Verified 07/22/24 16:09) Nausea Medications ???Medication ???Instructions ???Recorded ???Confirmed ???Type amlodipine 5 mg tablet 10 mg PO DAILY BP 03/05/20 5 History cholecalciferol (vitamin D3) 50 2,000 unit PO DAILY SUPPLEMENT 06/2007/22/24 History mcg (2,000 unit) capsule cranberry extract-vitamin C 250 2 ea PO DAILY URINARY HEALTH 03/0507/22/24 History mg-60 mg capsule lisinopril 20 mg tablet 20 mg PO DAILY BP 03/05/20 5 History omeprazole 20 mg delayed 20 mg PO DAILY GERD 03/05/2007/22 History release,disintegrating tablet oxybutynin chloride 5 mg tablet 5 mg PO DAILY BLADDER 03/05/20 History denosumab 60 mg/mL subcutaneous 60 mg subcut [id number] 09/20/22 History syringe (Prolia) premier protein 30 g PO .every other day 01/29/2407/22 History anastrozole 1 mg tablet 1 mg PO DAILY #90 tabs 07/22/24 Rx ascorbic acid-ascorbate sodium tab PO DAILY 07/22/24 07/22/24 His tory (vitamin C) 500 mg chewable tablet aspirin 81 mg tablet,delayed 81 mg PO .every other day 07/22/24 07/22/24 History release (Adult Aspirin Regimen) diphenhydramine HCl 25 mg tablet 25 mg PO QHS PRN 07/22/24 07/22/24 History (Benadryl Allergy) Have you fallen in the pas (more content not included)... Normal [facility] Platelet countOrdered By: Negar John on 07-22-2024 Platelets (Bld) [#/Vol] 283 10*3/uL 150-450 [facility] Potassium measurement (mass/ volume)Ordered By: Alonzo John on 07-22-2024 Potassium (Unsp spec) [Mass/Vol] 4.8 mmol/L 3.3-5.1 [facility] RBC Auto (Bld) [#/Vol]Ordere d By: Alonzo John on 07-22-2024 RBC (Bld) [#/Vol] 4.09 10*6/uL Low 4.2-5.4 [facility] Serum creatinine measurement (mass/volume)Ordered By: Alonzo John on 07-22-2024 Creatinine [Mass/Vol] 1.14 mg/dL 0.70-1.20 [facility] Serum globulin measurementOr dered By: Alonzo John on 07-22-2024 Globulin (S) [Mass/Vol] 3.5 g/dL 2.2-4.2 [facility] Serum glucose measurement (m ass/volume)Ordered By: Alonzo John on 07-22-2024 Glucose [Mass/Vol] 118 mg/dL High 70-99 [facility] Serum or plasma alanine salazar otransferase (ALT) measurementOrdered By: Alonzo John on 07-22-2024 ALT [Catalytic activity/Vol] 5 U/L <35 [facility] Serum or plasma albumin krysten urement (mass/volume)Ordered By: Alonzo John on 07-22-2024 Albumin [Mass/Vol] 3.9 g/dL 3.4-4.8 [facility] Serum or plasma albumin/glob ulin mass ratioOrdered By: Alonzo John on 07-22-2024 Albumin/Globulin [Mass ratio] 1.1 {ratio} 0.9-2.4 [facility] Serum or plasma alkaline ewelina sphatase measurementOrdered By: Alonzo John on 07-22-2024 ALP [Catalytic activity/Vol] 71 U/L 35-104 [facility] Serum or plasma calcium krysten urement (mass/volume)Ordered By: Alonzo John on 07-22-2024 Calcium [Mass/Vol] 9.6 mg/dL 7.6-11.0 [facility] Serum or plasma urea nitroge n measurement (mass/volume)Ordered By: Alonzo John on 07-22-2024 Urea nitrogen [Mass/Vol] 32 mg/dL High 4-19 [facility] Sodium levelOrdered By: Niels John on 07-22-2024 Sodium [Moles/Vol] 136 mmol/L 133-145 [facility] Total proteinOrdered By: Les John on 07-22-2024 Protein [Mass/Vol] 7.4 g/dL 5.9-8.4 [facility] White blood cell (WBC) count Ordered By: Alonzo John on 07-22-2024 WBC (Bld) [#/Vol] 8.5 10*3/uL 4.4-11.0 [facility] Urine Cultureon 07-17-2024 URC Presumptive E. coli [place] Count >100,000 Presumptive E. coli: REACTION Ampicillin Islt CARLOS 8 Ampicillin+Sulbac Islt CARLOS <=2 S Cefepime Islt CARLOS <=0.12 S cefTRIAXone Islt CARLOS <=0.25 S Ciprofloxacin Islt CARLOS <=0.06 S B-Lactamase Extended Susc Islt NEG Gentamicin Islt CARLOS <=1 S levoFLOXacin Islt CARLOS <=0.12 S Meropenem Islt CARLOS <=0.25 S Nitrofurantoin Islt CARLOS <=16 S Pip+Tazo Islt CARLOS <=4 S TMP SMX Islt CARLOS <=20 S Normal [facility] Comment on above: Performed By: #### M 100.0, L4 #### [facility] [address] [place], [address] Bilirubin Test strip Ql (U)O rdered By: Waqas Scott on 07-15-2024 Bilirubin Ql (U) Negative Negative [facility] Glucose Ql (U)Ordered By: Chandra Scott on 07-15-2024 Urine Glucose (UA) Normal mg/dl Normal [facility] Ketones Test strip Ql (U)Ord ered By: Waqas Scott on 07-15-2024 Ketones Ql (U) Negative Negative [facility] Nitrite Test strip Ql (U)Ord ered By: Waqas Scott on 07-15-2024 Nitrite Ql (U) Positive High Negative [facility] Protein Test strip Ql (U)Ord ered By: Waqas Scott on 07-15-2024 Protein Ql (U) 15 mg/dl High Negative [facility] Urinalysis, Routine (Dipstic k)on 07-15-2024 BILIRUBIN URINE Negative Normal Negative [facility] Comment on above: Order Comment: CLEAN CATCH Performed By: #### M , L4 #### [facility] [address] [place], [address] Clarity (U) Sl. Cloudy Normal Clear [facility] Comment on above: Order Comment: CLEAN CATCH Performed By: #### M 100.2199, L4 #### [facility] [address] [place], [address] Color (U) Yellow Normal Yellow [facility] Comment on above: Order Comment: CLEAN CATCH Performed By: #### M 100.2199, L4 #### [facility] [address] [place], [address] GLUCOSE, UR Normal Normal Normal [facility] Comment on above: Order Comment: CLEAN CATCH Performed By: #### M , L4 #### [facility] [address] [place], [address] KETONE UR Negative Normal Negative [facility] Comment on above: Order Comment: CLEAN CATCH Performed By: #### M , L4 #### [facility] [address] [place], [address] LEUK ESTERASE 500 /ul Abnormal Negative [facility] Comment on above: Order Comment: CLEAN CATCH Performed By: #### M , L4 #### [facility] [address] [place], [address] Nitrite Ql (U) Positive Abnormal Negative [facility] Comment on above: Order Comment: CLEAN CATCH Performed By: #### M , L4 #### [facility] [address] [place], [address] OCCULT BLOOD-UR Negative Normal Negative [facility] Comment on above: Order Comment: CLEAN CATCH Performed By: #### M , L4 #### [facility] [address] [place], [address] pH UR 5.0 Normal 5.0 - 8.0 [facility] Comment on above: Order Comment: CLEAN CATCH Performed By: #### M , L4 #### [facility] [address] [place], [address] PROT DIPSTX 15 mg/dl Abnormal Negative [facility] Comment on above: Order Comment: CLEAN CATCH Performed By: #### M , L4 #### [facility] [address] [place], [address] SP.GR. DIPSTX 1.020 Normal 1.002-1.030 [facility] Comment on above: Order Comment: CLEAN CATCH Performed By: #### M 100.2200, L400.2010 #### [facility] [address] [place], [address] UROBILI Normal Normal Normal [facility] Comment on above: Order Comment: CLEAN CATCH Performed By: #### M 100.2200, L400.2010 #### [facility] [address] [place], [address] Urine blood detectionOrdered By: Waqas Scott on 07-15-2024 Urine Occult Blood Negative Negative [facility] Urine clarityOrdered By: Marilin Scott on 07-15-2024 Clarity (U) Sl. Cloudy Clear [facility] Urine color determinationOrd ered By: Waqas Scott on 07-15-2024 Color (U) Yellow Yellow [facility] Urine cultureOrdered By: Marilin Scott on 07-15-2024 Bacteria identified Cx Nom (U) Presumptive E. coli Abnormal [facility] Urine glucose detectionOrder ed By: Waqas Scott on 07-15-2024 Glucose Ql (U) Normal mg/dl Normal [facility] Urine leukocyte esterase det ection by dipstickOrdered By: Waqas Scott on 07-15-2024 Leukocyte esterase Test strip Ql (U) 500 /ul High Negative [facility] Urine pHOrdered By: Waqas carrillo on 07-15-2024 pH (U) 5.0 [pH] 5.0 - 8.0 [facility] Urine specific gravity measu rementOrdered By: Waaqs Scott on 07-15-2024 Specific gravity (U) [Rel density] 1.020 1.002-1.030 [facility] Urine urobilinogen measureme ntOrdered By: Waqas Scott on 07-15-2024 Urobilinogen Ql (U) Normal mg/dl Normal [facility] Urobilinogen Ql (U)Ordered B y: Waqas Scott on 07-15-2024 Urine Urobilinogen Normal mg/dl Normal [facility] Radiation Oncology Visiton 0 04-15-2024 Radiation Oncology Visit [facility] [address] [place] [address] OFFICE VISIT Date of Service: 04/15/24931 MR#: [id number] Acct: [id number] Name: NESTOR MONTES DE OCA I Rep #: [id number] : 1935 From: Robinson Marleni DO Age/Sex: 89/F Location: [facility] [place] Status: Signed Intake Vital Signs 10/03/23 08:54 01/29/24 15:58 04/15/24 09:34 Height 4 ft 10 in 4 ft 10 in 4 ft 10 in Weight: 151 lb 9 oz 149 lb 6 oz BMI 31.6 31.2 BP 144/78 H 147/71 H Blood Pressure Location Rt brachial Rt brachial Position Sitting Sitting Respiration 18 18 Pulse 86 93 Pulse Source Monitor Monitor Temp 98.3 F 97.7 F L Temperature Source Temporal Artery Temporal Artery Pulse Oximetry (%) 100 95 Oxygen Delivery Method room air room air Intake Visit Reasons: 6 MONTH F/U BREAST Is patient in pain?: No Allergies sulfamethoxazole (From ) Allergy (Intermediate, Verified 04/15/24 09:39) Dizziness trimethoprim (From ) Allergy (Intermediate, Verified 04/15/24 09:39) Dizziness Penicillins (PCN) Allergy (Verified 04/15/24 09:39) Swelling erythromycin base Adverse Reaction (Verified 04/15/24 09:39) Nausea Medications ???Medication ???Instructions ???Recorded ???Confirmed ???Type amlodipine 5 mg tablet 10 mg PO DAILY BP 03/05/20 04/15/24 History aspirin 81 mg chewable tablet 81 mg PO DAILY@0800 HEART HEALTH 03/05/20 04/15/24 History cholecalciferol (vitamin D3) 50 2,000 unit PO DAILY SUPPLEMENT 03/05/20 04/15/24 History mcg (2,000 unit) capsule cranberry extract-vitamin C 250 2 ea PO DAILY URINARY HEALTH 03/05/20 04/15/24 History mg-60 mg capsule lisinopril 20 mg tablet 20 mg PO DAILY BP 03/05/20 04/15/24 History omeprazole 20 mg delayed 20 mg PO DAILY GERD 03/05/20 04/15/24 History release,disintegrating tablet oxybutynin chloride 5 mg tablet 5 mg PO DAILY BLADDER 03/05/20 04/15/24 History denosumab 60 mg/mL subcutaneous 60 mg subcut [id number] 09/20/22 04/15/24 History syringe (Prolia) anastrozole 1 mg tablet 1 mg PO DAILY #90 tabs 08/25/23 04/15/24 Rx premier protein 30 g PO .every other day 01/29/24 04/15/24 History hydrochlorothiazide 25 mg tablet 12.5 mg PO DAILY BP 04/15/24 04/15/24 History Have you fallen in the past year?: No PFSH PFSH Medical History Wears hearing aid Wears glasses Ambulates with cane DVT (deep venous thrombosis) Non-smoker History of echocardiogram GERD (gastroesophageal reflux disease) Constipation Arthritis Back problem Breast cancer HTN (hypertension) Home Medications ???Medication ???Instructions ???Recorded ???Last Taken ???Type amlodipine 5 mg tablet 10 mg PO DAILY BP 03/05/20 01/04/22 02:00 History aspirin 81 mg chewable tablet 81 mg PO DAILY@0800 HEART HEALTH 03/05/20 12/29/21 History cholecalciferol (vitamin D3) 50 2,000 unit PO DAILY SUPPLEMENT 03/05/20 01/03/22 History mcg (2,000 unit) capsule cranberry extract-vitamin C 250 2 ea PO DAILY URINARY HEALTH 03/05/20 01/03/22 History mg-60 mg capsule lisinopril 20 mg tablet 20 mg PO DAILY BP 03/05/20 01/04/22 02:00 History omeprazole 20 mg delayed 20 mg PO DAILY GERD 03/05/20 01/03/22 History release,disintegrating tablet oxybutynin chloride 5 mg tablet 5 mg PO DAILY BLADDER 03/05/20 01/03/22 History denosumab 60 mg/mL subcutaneous 60 mg subcut [id number] 09/20/22 Unknown History syringe (Prolia) anastrozole 1 mg tablet 1 mg PO DAILY #90 tabs 08/25/23 Unknown Rx premier protein 30 g PO .every other day 01/29/24 Unknown History hydrochlorothiazide 25 mg tablet 12.5 mg PO DAILY BP 04/15/24 Unknown History Allergy/AdvReac Type Severity Reaction Status Date / Time sulfamethoxazole (From Allergy Intermediate Dizziness Verified 04/15/24 09:39 Septra) trimethoprim (From Septra) Allergy Intermediate Dizziness Verified 04/15/24 09:39 Penicillins (PCN) Allergy Swelling Verified 04/15/24 09:39 erythromycin base AdvReac Nausea Verified 04/15/24 09:39 Family History Mother Myocardial infarction Diabetes Father Myocardial infarction Diabetes Sister Colon cancer Aunt Cancer Breast Surgical History History of left mastectomy Hx of knee surgery History of lymph node biopsy ( 10/2021) History of breast biopsy ( 10/2021) History of History of lumpectomy of left breast History of hysterectomy Social History household members: spouse and other details: daughter and son-in-law, grandchildren housing: house Smoking Status: Never smoker alcohol intake: current alcohol intake frequency: a few times a week Alcohol type: wine what type of physical ac (more content not included)... Normal [facility] Urine Cultureon 01-31-2024 URC Below infection leve l. Mixed Gram Positive Organisms [place] Count 1000-10,000 MIXC Mixed contaminants. Submit a new specimen if indicated. Normal [facility] Comment on above: Performed By: #### M 100.2200 ####[facility] [id number] [place], [address] Bilirubin Test strip Ql (U)O rdered By: Alonzo John on 01-29-2024 Bilirubin Ql (U) Negative Negative [facility] CBC W/Diff, Automatedon - Absolute Lymph 1.38 X10 3/uL Normal 0.83-4.51 [facility] Comment on above: Performed By: #### L 501.5200, L500.4050, L501.2300, L504.2610, L100.0100 #### [facility] [address] [place], [address] Absolute Neut 5.8 X10 3/uL Normal 2.0-7.7 [facility] Comment on above: Performed By: #### L 501.5200, L500.4050, L501.2300, L504.2610, L100.0100 #### [facility] [address] [place], [address] Basophils/100 WBC (Bld) 0.7 % Normal 0-1 [facility] Comment on above: Performed By: #### L 501.5200, L500.4050, L501.2300, L504.2610, L100.0100 #### [facility] [address] [place], [address] Eosinophils/100 WBC (Bld) 1.2 % Normal 0-5 [facility] Comment on above: Performed By: #### L 501.5200, L500.4050, L501.2300, L504.2610, L100.0100 #### [facility] [address] [place], [address] Erythrocyte distribution width (RBC) [Ratio] 14.1 % Normal 11.6-14.6 [facility] Comment on above: Performed By: #### L 501.5200, L500.4050, L501.2300, L504.2610, L100.0100 #### [facility] [address] [place], [address] Hematocrit (Bld) [Volume fraction] 34.5 % Low 37-47 [facility] Comment on above: Performed By: #### L 501.5200, L500.4050, L501.2300, L504.2610, L100.0100 #### [facility] [address] [place], [address] Hemoglobin (Bld) [Mass/Vol] 11.2 g/dL Low 12.0-15.0 [facility] Comment on above: Performed By: #### L 501.5200, L500.4050, L501.2300, L504.2610, L100.0100 #### [facility] [address] [place], [address] IG% 0.200 Normal 0.0-0.9 [facility] Comment on above: Result Comment: IG% - Immature Granulocytes (promyelocytes, myelocytes and metamyelocytes) > 1% indicates that a LEFT SHIFT is Present. Performed By: #### L 501.5200, L500.4050, L501.2300, L504.2610, L100.0100 #### [facility] [address] [place], [address] Lymphocytes/100 WBC (Bld) 16.8 % Low 19-41 [facility] Comment on above: Performed By: #### L 501.5200, L500.4050, L501.2300, L504.2610, L100.0100 #### [facility] [address] [place], [address] MCH (RBC) [Entitic mass] 28.6 pg Normal 27.0-32.0 [facility] Comment on above: Performed By: #### L 501.5200, L500.4050, L501.2300, L504.2610, L100.0100 #### [facility] [address] [place], [address] MCHC (RBC) [Mass/Vol] 32.5 g/dL Normal 32-36 [facility] Comment on above: Performed By: #### L 501.5200, L500.4050, L501.2300, L504.2610, L100.0100 #### [facility] [address] [place], [address] MCV (RBC) [Entitic vol] 88.2 fL Normal 81-99 [facility] Comment on above: Performed By: #### L 501.5200, L500.4050, L501.2300, L504.2610, L100.0100 #### [facility] [address] [place], [address] Monocytes/100 WBC (Bld) 9.9 % Normal 0-10 [facility] Comment on above: Performed By: #### L 501.5200, L500.4050, L501.2300, L504.2610, L100.0100 #### [facility] [address] [place], [address] Neutrophils/100 WBC (Bld) 71.2 % High 47-70 [facility] Comment on above: Performed By: #### L 501.5200, L500.4050, L501.2300, L504.2610, L100.0100 #### [facility] [address] [place], [address] Nucleated RBC (Bld) [#/Vol] 0 10*3/uL Normal 0-5 [facility] Comment on above: Performed By: #### L 501.5200, L500.4050, L501.2300, L504.2610, L100.0100 #### [facility] [address] [place], [address] Platelet mean volume (Bld) [Entitic vol] 10.3 fL Normal 6.2-12.0 [facility] Comment on above: Performed By: #### L 501.5200, L500.4050, L501.2300, L504.2610, L100.0100 #### [facility] [address] [place], [address] Platelets (Bld) [#/Vol] 285 10*3/uL Normal 150-450 [facility] Comment on above: Performed By: #### L 501.5200, L500.4050, L501.2300, L504.2610, L100.0100 #### [facility] [address] [place], [address] RBC (Bld) [#/Vol] 3.91 10*6/uL Low 4.2-5.4 [facility] Comment on above: Performed By: #### L 501.5200, L500.4050, L501.2300, L504.2610, L100.0100 #### [facility] [address] [place], [address] RDW SD 45.6 fl High 35.1-43.9 [facility] Comment on above: Performed By: #### L 501.5200, L500.4050, L501.2300, L504.2610, L100.0100 #### [facility] [address] [place], [address] WBC (Bld) [#/Vol] 8.2 10*3/uL Normal 4.4-11.0 [facility] Comment on above: Performed By: #### L 501.5200, L500.4050, L501.2300, L504.2610, L100.0100 #### [facility] [address] [place], [address] Comprehensive Metabolic [facility] 01-29-2024 Albumin [Mass/Vol] 3.7 g/dL Normal 3.2-5.0 [facility] Comment on above: Order Comment: 1 Performed By: #### L 501.5200, L500.4050, L501.2300, L504.2610, L100.0100 ####[facility] [address] [place], [address] Albumin/Globulin [Mass ratio] 0.9 {ratio} Normal 0.9-2.4 [facility] Comment on above: Order Comment: 1 Performed By: #### L 501.5200, L500.4050, L501.2300, L504.2610, L100.0100 ####[facility] [address] [place], [address] ALK P 74 U/L Normal 45-117 [facility] Comment on above: Order Comment: 1 Performed By: #### L 501.5200, L500.4050, L501.2300, L504.2610, L100.0100 ####[facility] [address] [place], [address] ALT [Catalytic activity/Vol] 15 U/L Normal 13-56 [facility] Comment on above: Order Comment: 1 Performed By: #### L 501.5200, L500.4050, L501.2300, L504.2610, L100.0100 ####[facility] [address] [place], [address] AST [Catalytic activity/Vol] 14 U/L Low 15-37 [facility] Comment on above: Order Comment: 1 Performed By: #### L 501.5200, L500.4050, L501.2300, L504.2610, L100.0100 ####[facility] [address] [place], [address] Bilirubin [Mass/Vol] 0.30 mg/dL Normal 0.20-1.00 [facility] Comment on above: Order Comment: 1 Result Comment: For patients on eltrombopag therapy, use of Dimension [place] TBIL is not recommended. Performed By: #### L 501.5200, L500.4050, L501.2300, L504.2610, L100.0100 ####[facility] [address] [place], [address] BUN/CRE 32.7 RATIO High 10-20 [facility] Comment on above: Order Comment: 1 Performed By: #### L 501.5200, L500.4050, L501.2300, L504.2610, L100.0100 ####[facility] [address] [place], [address] CA,Total 9.7 mg/dL Normal 8.5-10.1 [facility] Comment on above: Order Comment: 1 Performed By: #### L 501.5200, L500.4050, L501.2300, L504.2610, L100.0100 ####[facility] [address] [place], [address] Chloride [Moles/Vol] 95 mmol/L Low 98-107 [facility] Comment on above: Order Comment: 1 Performed By: #### L 501.5200, L500.4050, L501.2300, L504.2610, L100.0100 ####[facility] [address] [place], [address] CO2 [Moles/Vol] 26.0 mmol/L Normal 21.0-32.0 [facility] Comment on above: Order Comment: 1 Performed By: #### L 501.5200, L500.4050, L501.2300, L504.2610, L100.0100 ####[facility] [address] [place], [address] Creatinine [Mass/Vol] 1.13 mg/dL High 0.55-1.02 [facility] Comment on above: Order Comment: 1 Result Comment: The validity of the calculated GFR GFRAA in patients over 70 years has not been determined. Clinical correlation is essential. Performed By: #### L 501.5200, L500.4050, L501.2300, L504.2610, L100.0100 ####[facility] [address] [place], [address] ECRCL 29.64 ml/min Normal [facility] Comment on above: Order Comment: 1 Performed By: #### L 501.5200, L500.4050, L501.2300, L504.2610, L100.0100 ####[facility] [address] [place], [address] EST GFR - AA 58 mL/min Low >60 [facility] Comment on above: Order Comment: 1 Result Comment: Afri can Irish GFR Calc Performed By: #### L 501.5200, L500.4050, L501.2300, L504.2610, L100.0100 ####[facility] [address] [place], [address] GAP 7 Normal 5-15 [facility] Comment on above: Order Comment: 1 Performed By: #### L 501.5200, L500.4050, L501.2300, L504.2610, L100.0100 ####[facility] [address] [place], [address] GFR/1.73 sq M.predicted among non-blacks MDRD (S/P/Bld) [Vol rate/Area] 48 mL/min/{1.73_m2} Low >60 [facility] Comment on above: Order Comment: 1 Result Comment: Non- GFR Calc Performed By: #### L 501.5200, L500.4050, L501.2300, L504.2610, L100.0100 ####[facility] [address] [place], [address] Globulin (S) [Mass/Vol] 4.1 g/dL Normal 2.2-4.2 [facility] Comment on above: Order Comment: 1 Performed By: #### L 501.5200, L500.4050, L501.2300, L504.2610, L100.0100 ####[facility] [facility] [id number] [place], [address] Glucose [Mass/Vol] 104 mg/dL Normal 74-106 [facility] Comment on above: Order Comment: 1 Result Comment: Fast ing Glucose result from 100 to 125 mg/dL suggests IMPAIRED HOMEOSTASIS per A.D.A. criteria. Performed By: #### L 501.5200, L500.4050, L501.2300, L504.2610, L100.0100 ####[facility] [address] [place], [address] Potassium [Moles/Vol] 4.2 mmol/L Normal 3.5-5.1 [facility] Comment on above: Order Comment: 1 Performed By: #### L 501.5200, L500.4050, L501.2300, L504.2610, L100.0100 ####[facility] [address] [place], [address] Sodium [Moles/Vol] 127 mmol/L Low 136-145 [facility] Comment on above: Order Comment: 1 Performed By: #### L 501.5200, L500.4050, L501.2300, L504.2610, L100.0100 ####[facility] [address] [place], [address] T PROT 7.8 g/dL Normal 6.4-8.2 [facility] Comment on above: Order Comment: 1 Performed By: #### L 501.5200, L500.4050, L501.2300, L504.2610, L100.0100 ####[facility] [address] [place], [address] Urea nitrogen [Mass/Vol] 37 mg/dL High 7-18 [facility] Comment on above: Order Comment: 1 Performed By: #### L 501.5200, L500.4050, L501.2300, L504.2610, L100.0100 ####[facility] [address] [place], [address] Ketones Test strip Ql (U)Ord ered By: Alonzo John on 01-29-2024 Ketones Ql (U) Negative Negative [facility] LDHon 01-29-2024 LDH 167 U/L Normal 84-246 [facility] Comment on above: Order Comment: 1 Performed By: #### L 501.5200, L500.4050, L501.2300, L504.2610, L100.0100 ####[facility] [address] [place], [address] Magnesiumon 01-29-2024 Magnesium [Mass/Vol] 1.9 mg/dL Normal 1.6-2.6 [facility] Comment on above: Order Comment: 1 Performed By: #### L 501.5200, L500.4050, L501.2300, L504.2610, L100.0100 ####[facility] [address] [place], [address] Magnesium measurementOrdered By: Alonzo John on 01-29-2024 Magnesium [Mass/Vol] 1.9 mg/dL 1.6-2.6 [facility] Microscopic analysis of urin e for red blood cells (RBC)Ordered By: Alonzo John on 01-29-2024 Microscopic analysis of urine for red blood cells (RBC) 0 SEEN /hpf 0-5 [facility] Mucus LM Ql (Urine sed)Order ed By: Alonzo John on 01-29-2024 Mucus Ql (Urine sed) 0 SEEN /hpf [facility] Nitrite Test strip Ql (U)Ord ered By: Alonzo John on 01-29-2024 Nitrite Ql (U) Negative Negative [facility] Oncology Visit Reporton 01-02 Oncology Visit Report [facility] [place] [facility] [address] [place] [address] OFFICE VISIT Date of Service: 01/29/24 1558 MR#: [id number] Acct: [id number] Name: NESTOR MONTES DE OCA I Rep #: [id number] : 1935 From: Alonzo John MD Age/Sex: 89/F Location: [facility] Status: Signed HPI Subjective Date of Service 01/29/24 Chief Complaint F/u for L breast cancer History of Present Illness 89y.o.woman found a lump in her left breast/armpit. 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 She had mammogram and ultrasound done in August 2021. She then had MRI of the breast done on 09/08/2021 which showed multiple left breast nodules and left axillary nodes suggestive suggestive of malignancy. She had ultrasound-guided biopsy of left breast nodule at 2 o'clock position and left axillary node on 10/01/2021. 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 She was referred for further evaluation and management. Had CT c/a/p on 10/21/2021 showed L axillary adenopathy, L kidney complex cyst. Bone scan done on 10/21/2021 was negative. She had L mastectomy and axillary dissection on 01/04/2022. Pathology showed Invasive ductal carcinoma, tumor size 3cm, margins negative, Lymph nodes 19 positive-pT2 pN3. Prognostic stage IIIC(pT2 pN3 pM0). Bone density done 01/27/22 shows osteopenia. Received adjuvant Radiation therapy to L anterior chest from 04/05/2022 to 04/26/2022. Started Anastrozole on 05/30/2022. Started Prolia on 07/28/2022. Got bodyaches so decided to stop. Comes for follow up. Has slight swelling of the L arm and armpit which is stable. Feels well but has burning urination on and off, Dr. Scott gave her Cipro for 14 days.. [facility] Medical History Wears hearing aid Wears glasses Ambulates with cane DVT (deep venous thrombosis) Non-smoker History of echocardiogram GERD (gastroesophageal reflux disease) Constipation Arthritis Back problem Breast cancer HTN (hypertension) Surgical History History of left mastectomy Hx of knee surgery History of lymph node biopsy ( 10/2021) History of breast biopsy ( 10/2021) History of History of lumpectomy of left breast History of hysterectomy Family History Mother Myocardial infarction Diabetes Father Myocardial infarction Diabetes Sister Colon cancer Aunt Cancer Breast Social History household members: spouse and other details: daughter and son-in-law, grandchildren housing: house Smoking Status: Never smoker alcohol intake: current alcohol intake frequency: a few times a week Alcohol type: wine what type of physical activity do you participate in: none do you feel safe at home: Yes Intake Vital Signs 07/31/23 16:06 10/03/23 08:54 01/29/24 15:58 Height 4 ft 10 in 4 ft 10 in 4 ft 10 in Weight: 68.152 kg 68.748 kg BMI 31.4 31.6 BP 139/79 H 144/78 H Blood Pressure Location Rt brachial Rt brachial Position Sitting Sitting Respiration 18 18 Pulse 86 86 Pulse Source Monitor Monitor Temp 97.9 F 98.3 F Temperature Source Temporal Artery Temporal Artery Pulse Oximetry (%) 98 100 Oxygen Delivery Method room air room air Intake Is patient in pain?: No Allergies sulfamethoxazole (From Septra) Allergy (Intermediate, Verified 01/29/24 16:02) Dizziness trimethoprim (From Septra) Allergy (Intermediate, Verified 01/29/24 16:02) Dizziness Penicillins (PCN) Allergy (Verified 01/29/24 16:02) Swelling erythromycin base Adverse Reaction (Verified 01/29/24 16:02) Nausea Medications ???Medication ???Instructions ???Recorded ???Confirmed ???Type amlodipine 5 mg tablet 10 mg PO DAILY BP 03/05/20 01/29/24 History aspirin 81 mg chewable tablet 81 mg PO DAILY@0800 HEART HEALTH 03/05/20 01/29/24 History cholecalciferol (vitamin D3) 50 2,000 unit PO DAILY SUPPLEMENT 03/05/20 01/29/24 History mcg (2,000 unit) capsule cranberry extract-vitamin C 250 2 ea PO DAILY URINARY HEALTH 03/05/20 01/29/24 History mg-60 mg capsule hydrochlorothiazide 25 mg tablet 25 mg PO DAILY BP 03/05/20 01/29/24 History lisinopril 20 mg tablet 20 mg PO DAILY BP 03/05/20 01/29/24 History omeprazole 20 mg delayed 20 mg PO DAILY GERD 03/05/20 01/29/24 History release,disintegrating tablet oxybutynin chloride 5 mg tablet 5 mg PO DAILY BLADDER 03/05/20 01/29/24 History denosumab 60 mg/mL subcutaneous 60 mg subcut [id number] 09/20/22 01/29/24 History syringe (Prolia) anastrozole 1 mg tablet 1 mg PO DAILY #90 tabs 08/25/23 01/29/24 Rx premier protein 30 g PO .every other day 01/29/24 History Have you fallen in the past yea (more content not included)... Normal [facility] Phosphoruson 01-29-2024 Phosphate [Mass/Vol] 3.4 mg/dL Normal 2.5-4.9 [facility] Comment on above: Order Comment: 1 Performed By: #### L 501.5200, L500.4050, L501.2300, L504.2610, L100.0100 ####[facility] [address] [place], [address] Protein Test strip Ql (U)Ord ered By: Alonzo John on 01-29-2024 Protein Ql (U) Negative Negative [facility] Squamous epithelial cells de tection in urine sediment by light microscopyOrdered By: Alonzo John on 01-29-2024 Epithelial cells.squamous LM Ql (Urine sed) 0 SEEN /hpf - [facility] Urinalysis, Completeon 01-28 WBC 0-5 SEEN Normal 0-5 [facility] Comment on above: Order Comment: OSBALDO CTOR TO SPECIFY Performed By: #### L 400.0001 #### [facility] [address] [place], [address] BACTERIA 0 SEEN Normal None Seen [facility] Comment on above: Order Comment: OSBALDO CTOR TO SPECIFY Performed By: #### L 400.0001 #### [facility] [address] [place], [address] EPI,SQUAMOUS 0 SEEN Normal - [facility] Comment on above: Order Comment: OSBALDO CTOR TO SPECIFY Performed By: #### L 400.0001 #### [facility] [address] [place], [place], [id number] Mucus Ql (Urine sed) 0 SEEN Normal [facility] Comment on above: Order Comment: OSBALDO CTOR TO SPECIFY Performed By: #### L 400.0001 #### [facility] [address] [place], [place], [id number] RBC 0 SEEN Normal 0-5 [facility] Comment on above: Order Comment: OSBALDO CTOR TO SPECIFY Performed By: #### L 400.0001 #### [facility] [address] [place], [place], [id number] Urine clarityOrdered By: Les John on 01-29-2024 Clarity (U) Clear Clear [facility] Urine color determinationOrd ered By: Alonzo John on 01-29-2024 Color (U) Yellow Yellow [facility] Urine cultureOrdered By: Les John on 01-29-2024 Bacteria identified Cx Nom (U) Positive Abnormal [facility] Urine glucose detectionOrder ed By: Alonzo John on 01-29-2024 Glucose Ql (U) Normal mg/dl Normal [facility] Urine leukocyte esterase det ection by dipstickOrdered By: Alonzo John on 01-29-2024 Leukocyte esterase Test strip Ql (U) 25 /ul High Negative [facility] Urine pHOrdered By: Alonzo pace on 01-29-2024 pH (U) 6.0 [pH] 5.0 - 8.0 [facility] Urine sediment bacteria coun t by microscopy (number/high power field)Ordered By: Alonzo John on 01-29-2024 Bacteria LM.HPF (Urine sed) [#/Area] 0 /[HPF] None Seen [facility] Urine specific gravity measu rementOrdered By: Alonzo John on 01-29-2024 Specific gravity (U) [Rel density] 1.015 1.002-1.030 [facility] Urine urobilinogen measureme ntOrdered By: Alonzo John on 01-29-2024 Urobilinogen Ql (U) Normal mg/dl Normal [facility] White blood cell countOrdere d By: Alonzo John on 01-29-2024 White blood cell count 0-5 SEEN /hpf 0-5 [facility] Urine Cultureon 01-21-2024 URC Presumptive E. coli [place] Count >100,000 Presumptive E. coli Presumptive E. coli Presumptive E. coli: REACTION Ampicillin Islt CARLOS 4 S Ampicillin+Sulbac Islt CARLOS <=2 ceFAZolin Islt CARLOS <=4 S Cefepime Islt CARLOS <=0.12 S cefTRIAXone Islt CARLOS <=0.25 S Ciprofloxacin Islt CARLOS <=0.25 S B-Lactamase Extended Susc Islt NEG Gentamicin Islt CARLOS <=1 S Imipenem Islt CARLOS <=0.25 S levoFLOXacin Islt CARLOS <=0.12 S Nitrofurantoin Islt CARLOS <=16 S Pip+Tazo Islt CARLOS <=4 S Tobramycin Islt CARLOS <=1 S TMP SMX Islt CARLOS <=20 S Presumptive E. coli: REACTION Ampicillin Islt CARLOS >=32 R Ampicillin+Sulbac Islt CARLOS >=32 ceFAZolin Islt CARLOS <=4 S Cefepime Islt CARLOS <=0.12 S cefTRIAXone Islt CARLOS <=0.25 S Ciprofloxacin Islt CARLOS <=0.25 S B-Lactamase Extended Susc Islt NEG Gentamicin Islt CARLOS <=1 S Imipenem Islt CARLOS <=0.25 S levoFLOXacin Islt CARLOS <=0.12 S Nitrofurantoin Islt CARLOS <=16 S Pip+Tazo Islt CARLOS <=4 S Tobramycin Islt CARLOS <=1 S TMP SMX Islt CARLOS <=20 S Normal [facility] Comment on above: Performed By: #### M 100.2200 #### [facility] [address] [facility] [place], [place], [id number] Basic Metabolic Profile (BMP )on 01-18-2024 BUN/CRE 28.4 RATIO High 01-20 [facility] Comment on above: Performed By: #### L 500.2500, L501.9520, L100.0100 #### [facility] [address] [place], [address] CA,Total 9.6 mg/dL Normal 8.5-10.1 [facility] Comment on above: Performed By: #### L 500.2500, L501.9520, L100.0100 #### [facility] [address] [place], [address] Chloride [Moles/Vol] 96 mmol/L Low 98-107 [facility] Comment on above: Performed By: #### L 500.2500, L501.9520, L100.0100 #### [facility] [address] [place], [address] CO2 [Moles/Vol] 27.0 mmol/L Normal 21.0-32.0 [facility] Comment on above: Performed By: #### L 500.2500, L501.9520, L100.0100 #### [facility] [address] [place], [address] Creatinine [Mass/Vol] 1.02 mg/dL Normal 0.55-1.02 [facility] Comment on above: Result Comment: The validity of the calculated GFR GFRAA in patients over 70 years has not been determined. Clinical correlation is essential. Performed By: #### L 500.2500, L501.9520, L100.0100 #### [facility] [address] [place], [address] EST GFR - AA 66 mL/min Normal >60 [facility] Comment on above: Result Comment: Afri can Irish GFR Calc Performed By: #### L 500.2500, L501.9520, L100.0100 #### [facility] [address] [place], [address] GAP 8 Normal 5-15 [facility] Comment on above: Performed By: #### L 500.2500, L501.9520, L100.0100 #### [facility] [address] [place], [address] GFR/1.73 sq M.predicted among non-blacks MDRD (S/P/Bld) [Vol rate/Area] 54 mL/min/{1.73_m2} Low >60 [facility] Comment on above: Result Comment: Non- GFR Calc Performed By: #### L 500.2500, L501.9520, L100.0100 #### [facility] [address] [place], [address] Glucose [Mass/Vol] 90 mg/dL Normal 74-106 [facility] Comment on above: Performed By: #### L 500.2500, L501.9520, L100.0100 #### [facility] [address] [place], [address] Potassium [Moles/Vol] 4.2 mmol/L Normal 3.5-5.1 [facility] Comment on above: Performed By: #### L 500.2500, L501.9520, L100.0100 #### [facility] [address] [place], [address] Sodium [Moles/Vol] 131 mmol/L Low 136-145 [facility] Comment on above: Performed By: #### L 500.2500, L501.9520, L100.0100 #### [facility] [address] [place], [address] Urea nitrogen [Mass/Vol] 29 mg/dL High 7-18 [facility] Comment on above: Performed By: #### L 500.2500, L501.9520, L100.0100 #### [facility] [address] [place], [address] CBC W/Diff, Automatedon 10-1 Absolute Lymph 1.06 X10 3/uL Normal 0.83-4.51 [facility] Comment on above: Performed By: #### L 500.2500, L501.9520, L100.0100 #### [facility] [address] [place], [address] Absolute Neut 8.1 X10 3/uL High 2.0-7.7 [facility] Comment on above: Performed By: #### L 500.2500, L501.9520, L100.0100 #### [facility] [address] [place], [address] Basophils/100 WBC (Bld) 0.4 % Normal 0-1 [facility] Comment on above: Performed By: #### L 500.2500, L501.9520, L100.0100 #### [facility] [address] [place], [address] Eosinophils/100 WBC (Bld) 0.7 % Normal 0-5 [facility] Comment on above: Performed By: #### L 500.2500, L501.9520, L100.0100 #### [facility] [address] [place], [address] Erythrocyte distribution width (RBC) [Ratio] 14.1 % Normal 11.6-14.6 [facility] Comment on above: Performed By: #### L 500.2500, L501.9520, L100.0100 #### [facility] [address] [place], [address] Hematocrit (Bld) [Volume fraction] 38.6 % Normal 37-47 [facility] Comment on above: Performed By: #### L 500.2500, L501.9520, L100.0100 #### [facility] [address] [place], [address] Hemoglobin (Bld) [Mass/Vol] 12.4 g/dL Normal 12.0-15.0 [facility] Comment on above: Performed By: #### L 500.2500, L501.9520, L100.0100 #### [facility] [address] [place], [address] IG% 0.400 Normal 0.0-0.9 [facility] Comment on above: Result Comment: IG% - Immature Granulocytes (promyelocytes, myelocytes and metamyelocytes) > 1% indicates that a LEFT SHIFT is Present. Performed By: #### L 500.2500, L501.9520, L100.0100 #### [facility] [address] [place], [address] Lymphocytes/100 WBC (Bld) 10.7 % Low 19-41 [facility] Comment on above: Performed By: #### L 500.2500, L501.9520, L100.0100 #### [facility] [address] [place], [address] MCH (RBC) [Entitic mass] 29.2 pg Normal 27.0-32.0 [facility] Comment on above: Performed By: #### L 500.2500, L501.9520, L100.0100 #### [facility] [address] [place], [address] MCHC (RBC) [Mass/Vol] 32.1 g/dL Normal 32-36 [facility] Comment on above: Performed By: #### L 500.2500, L501.9520, L100.0100 #### [facility] [address] [place], [address] MCV (RBC) [Entitic vol] 90.8 fL Normal 81-99 [facility] Comment on above: Performed By: #### L 500.2500, L501.9520, L100.0100 #### [facility] [address] [place], [address] Monocytes/100 WBC (Bld) 6.5 % Normal 0-10 [facility] Comment on above: Performed By: #### L 500.2500, L501.9520, L100.0100 #### [facility] [address] [place], [address] Neutrophils/100 WBC (Bld) 81.3 % High 47-70 [facility] Comment on above: Performed By: #### L 500.2500, L501.9520, L100.0100 #### [facility] [address] [place], [address] Nucleated RBC (Bld) [#/Vol] 0 10*3/uL Normal 0-5 [facility] Comment on above: Performed By: #### L 500.2500, L501.9520, L100.0100 #### [facility] [address] [place], [address] Platelet mean volume (Bld) [Entitic vol] 10.9 fL Normal 6.2-12.0 [facility] Comment on above: Performed By: #### L 500.2500, L501.9520, L100.0100 #### [facility] [address] [place], [address] Platelets (Bld) [#/Vol] 284 10*3/uL Normal 150-450 [facility] Comment on above: Performed By: #### L 500.2500, L501.9520, L100.0100 #### [facility] [address] [place], [address] RBC (Bld) [#/Vol] 4.25 10*6/uL Normal 4.2-5.4 [facility] Comment on above: Performed By: #### L 500.2500, L501.9520, L100.0100 #### [facility] [address] [place], [address] RDW SD 46.8 fl High 35.1-43.9 [facility] Comment on above: Performed By: #### L 500.2500, L501.9520, L100.0100 #### [facility] [address] [place], [address] WBC (Bld) [#/Vol] 9.9 10*3/uL Normal 4.4-11.0 [facility] Comment on above: Performed By: #### L 500.2500, L501.9520, L100.0100 #### [facility] [address] [place], [address] Thyroid Stim Hormone (TSH)on 01-18-2024 TSH 1.650 uIU/mL Normal 0.358-3.740 [facility] Comment on above: Performed By: #### L 500.2500, L501.9520, L100.0100 #### [facility] [address] [place], [address] Radiation Oncology Visiton 0 10-03-2023 Radiation Oncology Visit [facility] [address] [place] [address] OFFICE VISIT Date of Service: 10/03/2352 MR#: [id number] Acct: [id number] Name: NESTOR MONTES DE OCA I Rep #: [id number] : 1935 From: Robinson Yepez DO Age/Sex: 88/F Location: [facility] Status: Signed Intake Vital Signs 05/29/23 09:09 07/31/23 16:06 10/03/23 08:54 Height 4 ft 10 in 4 ft 10 in 4 ft 10 in Weight: 151 lb 150 lb 4 oz BMI 31.5 31.4 BP 142/74 H 139/79 H Blood Pressure Location Rt brachial Rt brachial Position Sitting Sitting Respiration 18 18 Pulse 84 86 Pulse Source Monitor Monitor Temp 98.5 F 97.9 F Temperature Source Temporal Artery Temporal Artery Pulse Oximetry (%) 99 98 Oxygen Delivery Method room air room air Intake Visit Reasons: 4 MONTH F/U BREAST Is patient in pain?: No Allergies sulfamethoxazole (From Septra) Allergy (Intermediate, Verified 10/03/23 08:56) Dizziness trimethoprim (From Septra) Allergy (Intermediate, Verified 10/03/23 08:56) Dizziness Penicillins (PCN) Allergy (Verified 10/03/23 08:56) Swelling erythromycin base Adverse Reaction (Verified 10/03/23 08:56) Nausea Medications ???Medication ???Instructions ???Recorded ???Confirmed ???Type amlodipine 5 mg tablet 10 mg PO DAILY BP 03/05/20 10/03/23 History aspirin 81 mg chewable tablet 81 mg PO DAILY@0800 HEART HEALTH 03/05/20 10/03/23 History cholecalciferol (vitamin D3) 50 2,000 unit PO DAILY SUPPLEMENT 03/05/20 10/03/23 History mcg (2,000 unit) capsule cranberry extract-vitamin C 250 2 ea PO DAILY URINARY HEALTH 03/05/20 10/03/23 History mg-60 mg capsule hydrochlorothiazide 25 mg tablet 25 mg PO DAILY BP 03/05/20 10/03/23 History lisinopril 20 mg tablet 20 mg PO DAILY BP 03/05/20 10/03/23 History omeprazole 20 mg delayed 20 mg PO DAILY GERD 03/05/20 10/03/23 History release,disintegrating tablet oxybutynin chloride 5 mg tablet 5 mg PO DAILY BLADDER 03/05/20 10/03/23 History tramadol 50 mg tablet 50 mg PO Q6H PRN pain 3 days #10 01/05/22 10/03/23 Rx tabs denosumab 60 mg/mL subcutaneous 60 mg subcut [id number] 09/20/22 10/03/23 History syringe (Prolia) anastrozole 1 mg tablet 1 mg PO DAILY #90 tabs 08/25/23 10/03/23 Rx Have you fallen in the past year?: No PFSH PFSH Medical History Wears hearing aid Wears glasses Ambulates with cane DVT (deep venous thrombosis) Non-smoker History of echocardiogram GERD (gastroesophageal reflux disease) Constipation Arthritis Back problem Breast cancer HTN (hypertension) Home Medications ???Medication ???Instructions ???Recorded ???Last Taken ???Type amlodipine 5 mg tablet 10 mg PO DAILY BP 03/05/20 01/04/22 02:00 History aspirin 81 mg chewable tablet 81 mg PO DAILY@0800 [facility] 03/05/20 12/29/21 History cholecalciferol (vitamin D3) 50 2,000 unit PO DAILY SUPPLEMENT 03/05/20 01/03/22 History mcg (2,000 unit) capsule cranberry extract-vitamin C 250 2 ea PO DAILY URINARY HEALTH 03/05/20 01/03/22 History mg-60 mg capsule hydrochlorothiazide 25 mg tablet 25 mg PO DAILY BP 03/05/20 03/05/20 History lisinopril 20 mg tablet 20 mg PO DAILY BP 03/05/20 01/04/22 02:00 History omeprazole 20 mg delayed 20 mg PO DAILY GERD 03/05/20 01/03/22 History release,disintegrating tablet oxybutynin chloride 5 mg tablet 5 mg PO DAILY BLADDER 03/05/20 01/03/22 History tramadol 50 mg tablet 50 mg PO Q6H PRN pain 3 days #10 01/05/22 Unknown Rx tabs denosumab 60 mg/mL subcutaneous 60 mg subcut [id number] 09/20/22 Unknown History syringe (Prolia) anastrozole 1 mg tablet 1 mg PO DAILY #90 tabs 08/25/23 Unknown Rx Allergy/AdvReac Type Severity Reaction Status Date / Time sulfamethoxazole (From Allergy Intermediate Dizziness Verified 10/03/23 08:56 Septra) trimethoprim (From Septra) Allergy Intermediate Dizziness Verified 10/03/23 08:56 Penicillins (PCN) Allergy Swelling Verified 10/03/23 08:56 erythromycin base AdvReac Nausea Verified 10/03/23 08:56 Family History Mother Myocardial infarction Diabetes Father Myocardial infarction Diabetes Sister Colon cancer Aunt Cancer Breast Surgical History History of left mastectomy Hx of knee surgery History of lymph node biopsy ( 10/2021) History of breast biopsy ( 10/2021) History of History of lumpectomy of left breast History of hysterectomy Social History household members: spouse and other details: daughter and son-in-law, grandchildren housing: house Smoking Status: Never smoker alcohol intake: current alcohol intake frequency: a few times a week Alcohol type: wine (more content not included)... Normal [facility] SCREEN MAMM (CAD) W/[facility] Hank 09-29-2023 SCREEN MAMM (CAD) W/[facility] Imaging Services [address] [place], [place] [id number] SCREEN MAMM (CAD) W/[facility] MR#: [id number] Acct: [id number] Name: NESTOR MONTES DE OCA I Rep #: [id number] : [id number] F [id number] From: Triston White MD PCP: Dr. Waqas Scott MD Status: REG CLI Study: SCREEN MAMM (CAD) W/[facility] Date of Exam: 0 09/29/23 Exam# [id number] Ordering Dr: Robinson Yepez DO [id number] MAMMOGRAPHY - UNILATERAL SCREENING: RIGHT BREAST REASON FOR EXAM: Female, 88 years old. Routine annual screening examination (unilateral). PERTINENT HISTORY: Non-contributory. TECHNIQUE: Digital examination. Mediolateral oblique (MLO) and craniocaudad (CC) views of the breast were obtained. CAD: CAD was performed on this study. COMPARISON: 09/26/2022 FINDINGS: Breast Composition: There are scattered areas of fibroglandular density. There are no dominant masses or suspicious calcifications. No other significant abnormalities are identified. Benign rodlike calcifications. BI/SCREEN MAMM (CAD) W/[facility] IMPRESSION: Stable right screening mammogram. ASSESSMENT CATEGORY: BIRADS Category 2: Benign. A letter regarding these results will be sent to the patient by the facility within 30 days. FOLLOW UP RECOMMENDATION: Yearly follow up mammogram recommended. (A) FD0600 Approximately 10% of breast cancers are not detected by mammography. A normal mammogram should not delay biopsy of a clinically suspicious abnormality. [id number] Electronically Signed: Triston White MD at 13:34 EDT , CC: Dr. Waqas Scott MD; Dr. Robinson Yepez DO [employer] Claims Adjuster: Signed Normal [facility] Basophil percentageOrdered B y: Waqas Scott on 07-22-2023 Chloride [Moles/Vol] 99 mmol/L 98-107 [facility] Cholesterol [Mass/Vol] 188 mg/dL <200 [facility] Comment on above: <200 mg/dL Desirable 200-240 mg/dL Borderline >240 mg/dL High Risk Glucose [Mass/Vol] 81 mg/dL 74-106 [facility] Potassium [Moles/Vol] 4.1 mmol/L 3.5-5.1 [facility] Sodium [Moles/Vol] 132 mmol/L 136-145 [facility] Triglyceride [Mass/Vol] 42 mg/dL <199 [facility] Comment on above: The drugs N-Acetylcy steine and Metamizole may falsely depress this assay.Serum Triglycerides Reference Interval Normal <150 mg/dL Borderline high 150 - 199 mg/dL High 200 - 499 mg/dL Very High > or = 500 mg/dL Laboratory - Chemistry and C hemistry - challengeOrdered By: Waqas Scott on 07-22-2023 Cholesterol in HDL [Mass/Vol] 65 mg/dL >40 [facility] Comment on above: The drugs N-Acetylcy steine and Metamizole may falsely depress this assay. Reference Range HDL <40 mg/dL Low HDL Cholesterol HDL >or= 60 mg/dL High HDL Cholesterol Cholesterol in LDL [Mass/Vol] 115 mg/dL 0-130 [facility] CO2 [Moles/Vol] 27.0 mmol/L 21.0-32.0 [facility] Urea nitrogen/Creatinine [Mass ratio] 24.4 mg/mg 10-20 [facility] No Panel InformationOrdered By: Waqas Scott on 07-22-2023 Estimated GFR (MDRD) Amer 53 mL/min >60 [facility] Comment on above: GFR Calc Estimated GFR (MDRD) Non-Af Amer 44 mL/min >60 [facility] Comment on above: Non- GFR Calc VLDL Cholesterol 8 mg/dL 5-40 [facility] Serum or plasma calcium krysten urement (mass/volume)Ordered By: Waqas Scott on 07-22-2023 Calcium [Mass/Vol] 9.0 mg/dL 8.5-10.1 [facility] Serum or plasma creatinine m easurement (mass/volume)Ordered By: Waqas Scott on 07-22-2023 Creatinine [Mass/Vol] 1.23 mg/dL 0.55-1.02 [facility] Comment on above: The validity of the calculated GFR & GFRAA in patients over 70 years has not been determined. Clinical correlation is essential. Serum or plasma urea nitroge n measurement (mass/volume)Ordered By: Waqas Scott on 07-22-2023 Urea nitrogen [Mass/Vol] 30 mg/dL 7-18 [facility] Thin prep Papanicolaou smear with manual screeningOrdered By: Waqas Scott on 07-22-2023 Thin prep Papanicolaou smear with manual screening 6 5-15 [facility] Absolute lymphocyte countOrd ered By: Alonzo John on 01-30-2023 Lymphocytes Auto (Unsp spec) [#/Vol] 0.92 10*3/uL 0.83-4.51 [facility] Basophil percentageOrdered B y: Alonzo John on 01-30-2023 Basophil percentage 2.9 mg/dL 2.5-4.9 [facility] Basophils/100 WBC (Bld) 0.7 % 0-1 [facility] Bilirubin [Mass/Vol] 0.30 mg/dL 0.20-1.00 [facility] Comment on above: For patients on eltr ombopag therapy, use of Dimension [place] TBIL is not recommended. Chloride [Moles/Vol] 99 mmol/L 98-107 [facility] Eosinophils/100 WBC (Bld) 1.2 % 0-5 [facility] Glucose [Mass/Vol] 96 mg/dL 74-106 [facility] LDH [Catalytic activity/Vol] 169 U/L 84-246 [facility] Neutrophils (Bld) [#/Vol] 6.3 10*3/uL 2.0-7.7 [facility] Neutrophils/100 WBC (Bld) 78.7 % 47-70 [facility] Potassium [Moles/Vol] 4.4 mmol/L 3.5-5.1 [facility] Protein [Mass/Vol] 8.1 g/dL 6.4-8.2 [facility] Sodium [Moles/Vol] 133 mmol/L 136-145 [facility] WBC (Bld) [#/Vol] 8.0 10*3/uL 4.4-11.0 [facility] Blood erythrocytes count (nu mber/volume)Ordered By: Alonzo John on 01-30-2023 RBC (Bld) [#/Vol] 4.16 10*6/uL 4.2-5.4 [facility] Blood hemoglobin measurement (mass/volume)Ordered By: Alonzo John on 01-30-2023 Hemoglobin (Bld) [Mass/Vol] 12.4 g/dL 12.0-15.0 [facility] Blood lymphocytes/100 leukoc ytesOrdered By: [facility] 01-[facility] Lymphocytes/100 WBC (Bld) 11.5 % 19-41 [facility] Blood monocytes/100 leukocyt esOrdered By: [facility] on 01-30-2023 Monocytes/100 WBC (Bld) 7.5 % 0-10 [facility] Blood platelet mean volumeOr dered By: Alonzo John on 01-30-2023 Platelet mean volume (Bld) [Entitic vol] 10.1 fL 6.2-12.0 [facility] Determination of erythrocyte mean corpuscular volume (MCV)Ordered By: [facility]zo [facility] on 01-30-2023 MCV (RBC) [Entitic vol] 94.0 fL 81-99 [facility] Hematocrit Auto (Bld) [Volum e fraction]Ordered By: [facility]onzo [facility] on 01-30-2023 Hematocrit (Bld) [Volume fraction] 39.1 % 37-47 [facility] Laboratory - Chemistry and C hemistry - challengeOrdered By: Alonzo John on 01-30-2023 ALP [Catalytic activity/Vol] 70 U/L 45-117 [facility] ALT [Catalytic activity/Vol] 16 U/L 13-56 [facility] CO2 [Moles/Vol] 27.0 mmol/L 21.0-32.0 [facility] Globulin (S) [Mass/Vol] 4.4 g/dL 2.2-4.2 [facility] Magnesium [Mass/Vol] 1.7 mg/dL 1.6-2.6 [facility] Urea nitrogen/Creatinine [Mass ratio] 27.2 mg/mg 10-20 [facility] Laboratory - Hematology and Cell countsOrdered By: Alonzo John on 01-30-2023 Erythrocyte distribution width (RBC) [Entitic vol] 50.3 fL 35.1-43.9 [facility] Erythrocyte distribution width (RBC) [Ratio] 14.4 % 11.6-14.6 [facility] Immature granulocytes/100 WBC (Bld) 0.400 % 0.0-0.9 [facility] Comment on above: IG% - Immature Granu locytes (promyelocytes, myelocytes and metamyelocytes) > 1% indicates that a LEFT SHIFT is Present. MCH (RBC) [Entitic mass] 29.8 pg 27.0-32.0 [facility] Nucleated RBC/100 WBC (Bld) [Ratio] 0 % 0-5 [facility] MCHC Auto (RBC) [Mass/Vol]Or dered By: Alonzo John on 01-30-2023 MCHC (RBC) [Mass/Vol] 31.7 g/dL 32-36 [facility] No Panel InformationOrdered By: Alonzo John on 01-30-2023 Estimated Creatinine Clearance Calc 37.89 ml/min [facility] Estimated GFR (MDRD) Amer 58 mL/min >60 [facility] Comment on above: GFR Calc Estimated GFR (MDRD) Non-Af Amer 48 mL/min >60 [facility] Comment on above: Non- GFR Calc Vitamin D 25-Hydroxy 60.2 ng/mL [facility] Comment on above: Vitamin D 25(OH) Sta tus Range Deficiency <20 ng/mL (50nmol/L) Insufficiency 20 - 30 ng/mL (50 - 75 nmol/L) Sufficiency 30 - 100 ng/mL (75 - 250 nmol/L) Toxicity >100 ng/mL (>250 nmol/L) Platelets bldOrdered By: Les John on 01-30-2023 Platelets (Bld) [#/Vol] 285 10*3/uL 150-450 [facility] Serum or plasma albumin krysten urement (mass/volume)Ordered By: Alonzo John on 01-30-2023 Albumin [Mass/Vol] 3.7 g/dL 3.2-5.0 [facility] Serum or plasma albumin/glob ulin mass ratioOrdered By: Alonzo Blackburn on 01-30-2023 Albumin/Globulin [Mass ratio] 0.8 {ratio} 0.9-2.4 [facility] Serum or plasma calcium krysten urement (mass/volume)Ordered By: Alonzo Blackburn on 01-30-2023 Calcium [Mass/Vol] 9.2 mg/dL 8.5-10.1 [facility] Serum or plasma creatinine m easurement (mass/volume)Ordered By: Alonzo Blackburn on 01-30-2023 Creatinine [Mass/Vol] 1.14 mg/dL 0.55-1.02 [facility] Comment on above: The validity of the calculated GFR & GFRAA in patients over 70 years has not been determined. Clinical correlation is essential. Serum or plasma urea nitroge n measurement (mass/volume)Ordered By: [facility] on 01-30-2023 Urea nitrogen [Mass/Vol] 31 mg/dL 7-18 [facility] Thin prep Papanicolaou smear with manual screeningOrdered By: Alonzo Blackburn on 01-30-2023 Thin prep Papanicolaou smear with manual screening 17 U/L 15-37 [facility] Thin prep Papanicolaou smear with manual screening 7 5-15 [facility] Basophil percentageOrdered B y: Waqas Scott on 01-19-2023 Bilirubin [Mass/Vol] 0.40 mg/dL 0.20-1.00 [facility] Comment on above: For patients on eltr ombopag therapy, use of Dimension [place] TBIL is not recommended. Chloride [Moles/Vol] 96 mmol/L 98-107 [facility] Cholesterol [Mass/Vol] 202 mg/dL <200 [facility] Comment on above: <200 mg/dL Desirable 200-240 mg/dL Borderline >240 mg/dL High Risk Glucose [Mass/Vol] 106 mg/dL 74-106 [facility] Comment on above: Fasting Glucose resu lt from 100 to 125 mg/dL suggests IMPAIRED HOMEOSTASIS per A.D.A. criteria. Potassium [Moles/Vol] 3.8 mmol/L 3.5-5.1 [facility] Protein [Mass/Vol] 8.0 g/dL 6.4-8.2 [facility] Sodium [Moles/Vol] 129 mmol/L 136-145 [facility] Triglyceride [Mass/Vol] 73 mg/dL <199 [facility] Comment on above: The drugs N-Acetylcy steine and Metamizole may falsely depress this assay.Serum Triglycerides Reference Interval Normal <150 mg/dL Borderline high 150 - 199 mg/dL High 200 - 499 mg/dL Very High > or = 500 mg/dL Laboratory - Chemistry and C hemistry - challengeOrdered By: Waqas Scott on 01-19-2023 ALP [Catalytic activity/Vol] 61 U/L 45-117 [facility] ALT [Catalytic activity/Vol] 16 U/L 13-56 [facility] CO2 [Moles/Vol] 25.0 mmol/L 21.0-32.0 [facility] Globulin (S) [Mass/Vol] 4.4 g/dL 2.2-4.2 [facility] Urea nitrogen/Creatinine [Mass ratio] 27.1 mg/mg 10-20 [facility] No Panel InformationOrdered By: Waqas Scott on 01-19-2023 Estimated GFR (MDRD) Amer 62 mL/min >60 [facility] Comment on above: GFR Calc Estimated GFR (MDRD) Non-Af Amer 52 mL/min >60 [facility] Comment on above: Non- GFR Calc Serum or plasma albumin krysten urement (mass/volume)Ordered By: Waqas Scott on 01-19-2023 Albumin [Mass/Vol] 3.6 g/dL 3.2-5.0 [facility] Serum or plasma albumin/glob ulin mass ratioOrdered By: Waqas Scott on 01-19-2023 Albumin/Globulin [Mass ratio] 0.8 {ratio} 0.9-2.4 [facility] Serum or plasma calcium krysten urement (mass/volume)Ordered By: Waqas Scott on 01-19-2023 Calcium [Mass/Vol] 9.1 mg/dL 8.5-10.1 [facility] Serum or plasma cholesterol in HDL measurement (mass/volume)Ordered By: Waqas Scott on 01-19-2023 Cholesterol in HDL [Mass/Vol] 65 mg/dL >40 [facility] Comment on above: The drugs N-Acetylcy steine and Metamizole may falsely depress this assay. Reference Range HDL <40 mg/dL Low HDL Cholesterol HDL >or= 60 mg/dL High HDL Cholesterol Serum or plasma cholesterol in VLDL measurement (mass/volume)Ordered By: Waqas Scott on 01-19-2023 Cholesterol in VLDL [Mass/Vol] 15 mg/dL 5-40 [facility] Serum or plasma creatinine m easurement (mass/volume)Ordered By: Waqas Scott on 01-19-2023 Creatinine [Mass/Vol] 1.07 mg/dL 0.55-1.02 [facility] Comment on above: The validity of the calculated GFR & GFRAA in patients over 70 years has not been determined. Clinical correlation is essential. Serum or plasma low density lipoprotein (LDL) cholesterol measurement (mass/volume)Ordered By: Waqas Scott on 01-19-2023 Cholesterol in LDL [Mass/Vol] 122 mg/dL 0-130 [facility] Serum or plasma urea nitroge n measurement (mass/volume)Ordered By: Waqas Scott on 01-19-2023 Urea nitrogen [Mass/Vol] 29 mg/dL 7-18 [facility] Thin prep Papanicolaou smear with manual screeningOrdered By: Waqas Scott on 01-19-2023 Thin prep Papanicolaou smear with manual screening 15 U/L 15-37 [facility] Thin prep Papanicolaou smear with manual screening 8 5-15 [facility] Basophil percentageOrdered B y: Robinson Yepez on 09-26-2022 Creatinine [Mass/Vol] 1.6 mg/dL 0.55-1.02 [facility] Laboratory - Chemistry and C hemistry - challengeOrdered By: Robinson Yepez on 09-26-2022 GFR/1.73 sq M.predicted among non-blacks MDRD (S/P/Bld) [Vol rate/Area] 33.0000 mL/min/{1.73_m2} >60 [facility] No Panel InformationOrdered By: Dr. Yepez on 09-20-2022 Thyroid Stimulating Hormone (TSH) 1.62 uIU/mL 0.358-3.74 [facility] Absolute lymphocyte countOrd ered By: Dr. John on 07-28-2022 Lymphocytes Auto (Unsp spec) [#/Vol] 1.10 10*3/uL 0.83-4.51 [facility] Basophil percentageOrdered B y: Dr. John on 07-28-2022 Basophil percentage 3.1 mg/dL 2.5-4.9 [facility] Basophils/100 WBC (Bld) 0.5 % 0-1 [facility] Bilirubin [Mass/Vol] 0.30 mg/dL 0.20-1.00 [facility] Comment on above: For patients on eltr ombopag therapy, use of Dimension [place] TBIL is not recommended. Chloride [Moles/Vol] 102 mmol/L 98-107 [facility] Eosinophils/100 WBC (Bld) 1.1 % 0-5 [facility] Glucose [Mass/Vol] 94 mg/dL 74-106 [facility] LDH [Catalytic activity/Vol] 130 U/L 84-246 [facility] Neutrophils (Bld) [#/Vol] 7.3 10*3/uL 2.0-7.7 [facility] Neutrophils/100 WBC (Bld) 77.7 % 47-70 [facility] Potassium [Moles/Vol] 4.1 mmol/L 3.5-5.1 [facility] Protein [Mass/Vol] 7.7 g/dL 6.4-8.2 [facility] Sodium [Moles/Vol] 134 mmol/L 136-145 [facility] WBC (Bld) [#/Vol] 9.4 10*3/uL 4.4-11.0 [facility] Basophil percentageOrdered B y: Dr. Scott on 07-28-2022 Cholesterol [Mass/Vol] 180 mg/dL <200 [facility] Comment on above: <200 mg/dL Desirable 200-240 mg/dL Borderline >240 mg/dL High Risk Triglyceride [Mass/Vol] 84 mg/dL <199 [facility] Comment on above: The drugs N-Acetylcy steine and Metamizole may falsely depress this assay.Serum Triglycerides Reference Interval Normal <150 mg/dL Borderline high 150 - 199 mg/dL High 200 - 499 mg/dL Very High > or = 500 mg/dL Blood erythrocytes count (nu mber/volume)Ordered By: Dr. John on 07-28-2022 RBC (Bld) [#/Vol] 4.08 10*6/uL 4.2-5.4 [facility] Blood hemoglobin measurement (mass/volume)Ordered By: Dr. John on 07-28-2022 Hemoglobin (Bld) [Mass/Vol] 11.8 g/dL 12.0-15.0 [facility] Blood lymphocytes/100 leukoc ytesOrdered By: Dr. John on 07-28-2022 Lymphocytes/100 WBC (Bld) 11.7 % 19-41 [facility] Blood monocytes/100 leukocyt esOrdered By: Dr. John on 07-28-2022 Monocytes/100 WBC (Bld) 8.6 % 0-10 [facility] Blood platelet mean volumeOr dered By: Dr. John on 07-28-2022 Platelet mean volume (Bld) [Entitic vol] 10.4 fL 6.2-12.0 [facility] Determination of erythrocyte mean corpuscular volume (MCV)Ordered By: Dr. John on 07-28-2022 MCV (RBC) [Entitic vol] 91.9 fL 81-99 [facility] Hematocrit Auto (Bld) [Volum e fraction]Ordered By: Dr. John on 07-28-2022 Hematocrit (Bld) [Volume fraction] 37.5 % 37-47 [facility] Laboratory - Chemistry and C hemistry - challengeOrdered By: Dr. John on 07-28-2022 ALP [Catalytic activity/Vol] 70 U/L 45-117 [facility] ALT [Catalytic activity/Vol] 13 U/L 13-56 [facility] CO2 [Moles/Vol] 27.0 mmol/L 21.0-32.0 [facility] Globulin (S) [Mass/Vol] 4.3 g/dL 2.2-4.2 [facility] Urea nitrogen/Creatinine [Mass ratio] 28.1 mg/mg 10-20 [facility] Laboratory - Hematology and Cell countsOrdered By: Dr. John on 07-28-2022 Erythrocyte distribution width (RBC) [Entitic vol] 47.8 fL 35.1-43.9 [facility] Erythrocyte distribution width (RBC) [Ratio] 14.1 % 11.6-14.6 [facility] Immature granulocytes/100 WBC (Bld) 0.400 % 0.0-0.9 [facility] Comment on above: IG% - Immature Granu locytes (promyelocytes, myelocytes and metamyelocytes) > 1% indicates that a LEFT SHIFT is Present. MCH (RBC) [Entitic mass] 28.9 pg 27.0-32.0 [facility] Nucleated RBC/100 WBC (Bld) [Ratio] 0 % 0-5 [facility] MCHC Auto (RBC) [Mass/Vol]Or dered By: Dr. John on 07-28-2022 MCHC (RBC) [Mass/Vol] 31.5 g/dL 32-36 [facility] No Panel InformationOrdered By: Dr. John on 07-28-2022 Estimated GFR (MDRD) Amer 54 mL/min >60 [facility] Comment on above: GFR Calc Estimated GFR (MDRD) Non-Af Amer 45 mL/min >60 [facility] Comment on above: Non- GFR Calc Vitamin D 25-Hydroxy 78.5 ng/mL [facility] Comment on above: Vitamin D 25(OH) Sta tus Range Deficiency <20 ng/mL (50nmol/L) Insufficiency 20 - 30 ng/mL (50 - 75 nmol/L) Sufficiency 30 - 100 ng/mL (75 - 250 nmol/L) Toxicity >100 ng/mL (>250 nmol/L) Platelets bldOrdered By: Dr. John on 07-28-2022 Platelets (Bld) [#/Vol] 279 10*3/uL 150-450 [facility] Serum or plasma albumin krysten urement (mass/volume)Ordered By: Dr. John on 07-28-2022 Albumin [Mass/Vol] 3.4 g/dL 3.2-5.0 [facility] Serum or plasma albumin/glob ulin mass ratioOrdered By: Dr. John on 07-28-2022 Albumin/Globulin [Mass ratio] 0.8 {ratio} 0.9-2.4 [facility] Serum or plasma calcium krysten urement (mass/volume)Ordered By: Dr. John on 07-28-2022 Calcium [Mass/Vol] 9.4 mg/dL 8.5-10.1 [facility] Serum or plasma cholesterol in HDL measurement (mass/volume)Ordered By: Dr. Scott on 07-28-2022 Cholesterol in HDL [Mass/Vol] 57 mg/dL >40 [facility] Comment on above: The drugs N-Acetylcy steine and Metamizole may falsely depress this assay. Reference Range HDL <40 mg/dL Low HDL Cholesterol HDL >or= 60 mg/dL High HDL Cholesterol Serum or plasma cholesterol in VLDL measurement (mass/volume)Ordered By: Dr. Scott on 07-28-2022 Cholesterol in VLDL [Mass/Vol] 17 mg/dL 5-40 [facility] Serum or plasma creatinine m easurement (mass/volume)Ordered By: Dr. John on 07-28-2022 Creatinine [Mass/Vol] 1.21 mg/dL 0.55-1.02 [facility] Comment on above: The validity of the calculated GFR & GFRAA in patients over 70 years has not been determined. Clinical correlation is essential. Serum or plasma low density lipoprotein (LDL) cholesterol measurement (mass/volume)Ordered By: Dr. Scott on 07-28-2022 Cholesterol in LDL [Mass/Vol] 106 mg/dL 0-130 [facility] Serum or plasma urea nitroge n measurement (mass/volume)Ordered By: Dr. John on 07-28-2022 Urea nitrogen [Mass/Vol] 34 mg/dL 7-18 [facility] Thin prep Papanicolaou smear with manual screeningOrdered By: Dr. John on 07-28-2022 Thin prep Papanicolaou smear with manual screening 14 U/L 15-37 [facility] Thin prep Papanicolaou smear with manual screening 5 5-15 [facility] Absolute lymphocyte counton 01-05-2022 Lymphocytes Auto (Unsp spec) [#/Vol] 0.84 10*3/uL 0.83-4.51 [facility] Work Phone: Basophil percentageon 2021 Basophils/100 WBC (Bld) 0.1 % 0-1 [facility] Work Phone: Eosinophils/100 WBC (Bld) 0.0 % 0-5 [facility] Work Phone: Neutrophils (Bld) [#/Vol] 10.1 10*3/uL 2.0-7.7 [facility] Work Phone: [phone] Neutrophils/100 WBC (Bld) 83.3 % 47-70 [facility] Work Phone: WBC (Bld) [#/Vol] 12.1 10*3/uL 4.4-11.0 [facility] Work Phone: Blood erythrocytes count (nu mber/volume)on 01-05-2022 RBC (Bld) [#/Vol] 3.43 10*6/uL 4.2-5.4 [facility] Work Phone: Blood hemoglobin measurement (mass/volume)on 01-05-2022 Hemoglobin (Bld) [Mass/Vol] 10.2 g/dL 12.0-15.0 [facility] Work Phone: Blood lymphocytes/100 leukoc yteson 01-05-2022 Lymphocytes/100 WBC (Bld) 6.9 % 19-41 [facility] Work Phone: Blood monocytes/100 leukocyt eson 01-05-2022 Monocytes/100 WBC (Bld) 9.3 % 0-10 [facility] Work Phone: Blood platelet mean volumeon 01-05-2022 Platelet mean volume (Bld) [Entitic vol] 10.7 fL 6.2-12.0 [facility] Work Phone: Determination of erythrocyte mean corpuscular volume (MCV)on 01-05-2022 MCV (RBC) [Entitic vol] 93.3 fL 81-99 [facility] Work Phone: Hematocrit Auto (Bld) [Volum e fraction]on 01-05-2022 Hematocrit (Bld) [Volume fraction] 32.0 % 37-47 [facility] Work Phone: Laboratory - Hematology and Cell countson 01-05-2022 Erythrocyte distribution width (RBC) [Entitic vol] 48.6 fL 35.1-43.9 [facility] Work Phone: Erythrocyte distribution width (RBC) [Ratio] 14.2 % 11.6-14.6 [facility] Work Phone: Immature granulocytes/100 WBC (Bld) 0.400 % 0.0-0.9 [facility] Work Phone: Comment on above: IG% - Immature Granu locytes (promyelocytes, myelocytes and metamyelocytes) > 1% indicates that a LEFT SHIFT is Present. MCH (RBC) [Entitic mass] 29.7 pg 27.0-32.0 [facility] Work Phone: Nucleated RBC/100 WBC (Bld) [Ratio] 0 % 0-5 [facility] Work Phone: [phone] MCHC Auto (RBC) [Mass/Vol]on 01-05-2022 MCHC (RBC) [Mass/Vol] 31.9 g/dL 32-36 [facility] Work Phone: [phone] Platelets bldon 01-05-2022 Platelets (Bld) [#/Vol] 260 10*3/uL 150-450 [facility] Work Phone: Absolute lymphocyte counton 10-28-2021 Lymphocytes Auto (Unsp spec) [#/Vol] 1.23 10*3/uL 0.83-4.51 [facility] Work Phone: Basophil percentageon 2021 Basophils/100 WBC (Bld) 0.6 % 0-1 [facility] Work Phone: Bilirubin [Mass/Vol] 0.30 mg/dL 0.20-1.00 [facility] Work Phone: Comment on above: For patients on eltr ombopag therapy, use of Dimension [place] TBIL is not recommended. Chloride [Moles/Vol] 88 mmol/L 98-107 [facility] Work Phone: Eosinophils/100 WBC (Bld) 0.6 % 0-5 [facility] Work Phone: Glucose [Mass/Vol] 126 mg/dL 74-106 [facility] Work Phone: Comment on above: Fasting Glucose resu lt greater than or equal to 126 mg/dL suggests DIABETES MELLITUS per A.D.A. criteria. Neutrophils (Bld) [#/Vol] 7.2 10*3/uL 2.0-7.7 [facility] Work Phone: Neutrophils/100 WBC (Bld) 76.2 % 47-70 [facility] Work Phone: Potassium [Moles/Vol] 4.3 mmol/L 3.5-5.1 [facility] Work Phone: Protein [Mass/Vol] 7.9 g/dL 6.4-8.2 [facility] Work Phone: Sodium [Moles/Vol] 122 mmol/L 136-145 [facility] Work Phone: WBC (Bld) [#/Vol] 9.4 10*3/uL 4.4-11.0 [facility] Work Phone: Blood erythrocytes count (nu mber/volume)on 10-28-2021 RBC (Bld) [#/Vol] 4.15 10*6/uL 4.2-5.4 [facility] Work Phone: Blood hemoglobin measurement (mass/volume)on 10-28-2021 Hemoglobin (Bld) [Mass/Vol] 12.1 g/dL 12.0-15.0 [facility] Work Phone: Blood lymphocytes/100 leukoc yteson 10-28-2021 Lymphocytes/100 WBC (Bld) 13.0 % 19-41 [facility] Work Phone: Blood monocytes/100 leukocyt eson 10-28-2021 Monocytes/100 WBC (Bld) 9.2 % 0-10 [facility] Work Phone: Blood platelet mean volumeon 10-28-2021 Platelet mean volume (Bld) [Entitic vol] 10.3 fL 6.2-12.0 [facility] Work Phone: Determination of erythrocyte mean corpuscular volume (MCV)on 10-28-2021 MCV (RBC) [Entitic vol] 85.8 fL 81-99 [facility] Work Phone: Hematocrit Auto (Bld) [Volum e fraction]on 10-28-2021 Hematocrit (Bld) [Volume fraction] 35.6 % 37-47 [facility] Work Phone: Laboratory - Chemistry and C hemistry - challengeon 10-28-2021 ALP [Catalytic activity/Vol] 76 U/L 45-117 [facility] Work Phone: ALT [Catalytic activity/Vol] 17 U/L 13-56 [facility] Work Phone: CO2 [Moles/Vol] 27.0 mmol/L 21.0-32.0 [facility] Work Phone: Globulin (S) [Mass/Vol] 4.5 g/dL 2.2-4.2 [facility] Work Phone: Urea nitrogen/Creatinine [Mass ratio] 22.5 mg/mg 10-20 [facility] Work Phone: Laboratory - Hematology and Cell countson 10-28-2021 Erythrocyte distribution width (RBC) [Entitic vol] 41.2 fL 35.1-43.9 [facility] Work Phone: Erythrocyte distribution width (RBC) [Ratio] 13.2 % 11.6-14.6 [facility] Work Phone: Immature granulocytes/100 WBC (Bld) 0.400 % 0.0-0.9 [facility] Work Phone: Comment on above: IG% - Immature Granu locytes (promyelocytes, myelocytes and metamyelocytes) > 1% indicates that a LEFT SHIFT is Present. MCH (RBC) [Entitic mass] 29.2 pg 27.0-32.0 [facility] Work Phone: Nucleated RBC/100 WBC (Bld) [Ratio] 0 % 0-5 [facility] Work Phone: MCHC Auto (RBC) [Mass/Vol]on 10-28-2021 MCHC (RBC) [Mass/Vol] 34.0 g/dL 32-36 [facility] Work Phone: No Panel Informationon 10-28 Estimated GFR (MDRD) Amer 55 mL/min >60 [facility] Work Phone: Comment on above: GFR Calc Estimated GFR (MDRD) Non-Af Amer 45 mL/min >60 [facility] Work Phone: Comment on above: Non- GFR Calc Platelets bldon 10-28-2021 Platelets (Bld) [#/Vol] 300 10*3/uL 150-450 [facility] Work Phone: Serum or plasma albumin krysten urement (mass/volume)on 10-28-2021 Albumin [Mass/Vol] 3.4 g/dL 3.2-5.0 [facility] Work Phone: Serum or plasma albumin/glob ulin mass ratioon 10-28-2021 Albumin/Globulin [Mass ratio] 0.8 {ratio} 0.9-2.4 [facility] Work Phone: Serum or plasma calcium krysten urement (mass/volume)on 10-28-2021 Calcium [Mass/Vol] 9.1 mg/dL 8.5-10.1 [facility] Work Phone: Serum or plasma creatinine m easurement (mass/volume)on 10-28-2021 Creatinine [Mass/Vol] 1.20 mg/dL 0.55-1.02 [facility] Work Phone: Comment on above: The validity of the calculated GFR & GFRAA in patients over 70 years has not been determined. Clinical correlation is essential. Serum or plasma urea nitroge n measurement (mass/volume)on 10-28-2021 Urea nitrogen [Mass/Vol] 27 mg/dL 7-18 [facility] Work Phone: Thin prep Papanicolaou smear with manual screeningon 07-28-2022 Thin prep Papanicolaou smear with manual screening 17 U/L 15-37 [facility] Work Phone: Thin prep Papanicolaou smear with manual screening 7 5-15 [facility] Work Phone: Thin prep Papanicolaou smear with manual screening 134 U/L 84-246 [facility] Work Phone: Basophil percentageon 2021 Basophil percentage < 0.9 mg/dL 0.55-1.02 [facility] Work Phone: No Panel Informationon 10-18 Bedside Estimated GFR (eGFR) > 60.0000 mL/min >60 [facility] Work Phone: Culture, urineon 09-01-2021 Bacteria identified Cx Nom (U) Presumptive E. coli [facility] Work Phone: Basophil percentageon 2021 Chloride [Moles/Vol] 98 mmol/L 98-107 [facility] Work Phone: Cholesterol [Mass/Vol] 215 mg/dL <200 [facility] Work Phone: Comment on above: <200 mg/dL Desirable 200-240 mg/dL Borderline >240 mg/dL High Risk Glucose [Mass/Vol] 93 mg/dL 74-106 [facility] Work Phone: Potassium [Moles/Vol] 4.0 mmol/L 3.5-5.1 [facility] Work Phone: Sodium [Moles/Vol] 133 mmol/L 136-145 [facility] Work Phone: Triglyceride [Mass/Vol] 90 mg/dL <199 [facility] Work Phone: Comment on above: The drugs N-Acetylcy steine and Metamizole may falsely depress this assay.Serum Triglycerides Reference Interval Normal <150 mg/dL Borderline high 150 - 199 mg/dL High 200 - 499 mg/dL Very High > or = 500 mg/dL Laboratory - Chemistry and C hemistry - challengeon 08-18-2021 CO2 [Moles/Vol] 26.0 mmol/L 21.0-32.0 [facility] Work Phone: Urea nitrogen/Creatinine [Mass ratio] 24.3 mg/mg 10-20 [facility] Work Phone: No Panel Informationon 08-18 Estimated GFR (MDRD) Amer 60 mL/min >60 [facility] Work Phone: Comment on above: GFR Calc Estimated GFR (MDRD) Non-Af Amer 50 mL/min >60 [facility] Work Phone: Comment on above: Non- GFR Calc Serum or plasma calcium krysten urement (mass/volume)on 08-18-2021 Calcium [Mass/Vol] 9.4 mg/dL 8.5-10.1 [facility] Work Phone: Serum or plasma cholesterol in HDL measurement (mass/volume)on 08-18-2021 Cholesterol in HDL [Mass/Vol] 60 mg/dL >40 [facility] Work Phone: Comment on above: The drugs N-Acetylcy steine and Metamizole may falsely depress this assay. Reference Range HDL <40 mg/dL Low HDL Cholesterol HDL >or= 60 mg/dL High HDL Cholesterol Serum or plasma cholesterol in VLDL measurement (mass/volume)on 08-18-2021 Cholesterol in VLDL [Mass/Vol] 18 mg/dL 5-40 [facility] Work Phone: Serum or plasma creatinine m easurement (mass/volume)on 08-18-2021 Creatinine [Mass/Vol] 1.11 mg/dL 0.55-1.02 [facility] Work Phone: Comment on above: The validity of the calculated GFR & GFRAA in patients over 70 years has not been determined. Clinical correlation is essential. Serum or plasma low density lipoprotein (LDL) cholesterol measurement (mass/volume)on 08-18-2021 Cholesterol in LDL [Mass/Vol] 137 mg/dL 0-130 [facility] Work Phone: Serum or plasma urea nitroge n measurement (mass/volume)on 08-18-2021 Urea nitrogen [Mass/Vol] 27 mg/dL 10-18 [facility] Work Phone: Thin prep Papanicolaou smear with manual screeningon 08-18-2021 Thin prep Papanicolaou smear with manual screening 08-15 [facility] Work Phone: SURGICAL PATHOLOGYon 017 SURGICAL PATHOLOGY Specimen #: [id number] Physician: CARLOS CANO ___FINAL DIAGNOSIS1. Stomach, biopsy (A) Mild chronic inactive gastritis.- No morphologic evidence of Helicobacter pylori microorganisms.2. Duodenum, polypectomy (B) - Fragments of tubular adenoma with low gradedysplasia.3. Stomach, polypectomies x13 (C) - Fragments of fundic gland polyp.DSA/violette/12/13/16 Luz Maria Tovar M.D.(Electronic Signature) S PECIMEN SUBMITTEDA: GASTRIC, BIOPSY B: DUODENAL POLYP C: GASTRIC POLYPS X 13 CLINICAL DATAPERSISTENT GERD, DYSPHAGIAEGD WITH BIOPSY: POLYPECTOMY AND DILATIONGROSS DESCRIPTION A. Received in formalin are three pieces of boykin, soft tissue aggregatingto 0.9 x 0.2 x 0.2 cm. Totally submitted in one cassette.B. Received in formalin are multiple segments of boykin polypoid tissueranging in size from 0.3 x 0.3 x 0.2 cm to 0.2 x 0.2 x 0.2 cm. No stalksare noted. The lines of resection are noted. The specimens are notsectioned and submitted in one cassette.C. Received in formalin are multiple segments of boykin-brown polypoid tissueranging in size from 0.6 x 0.4 x 0.2 cm to 0.2 x 0.2 x 0.2 cm. No stalksare noted. The lines of resection are noted. The larger specimens arebisected and submitted in cassettes C1-C11, and the remaining specimens arenot sectioned and submitted in cassettes C12-C14.Gross examination performed at [facility], [address] [place] [id number] 12/12/2016 10:35:10 PM Patient ID #: Date of Report: 12/14/2016Date of Procedure: 12/12/2016Date of Receipt: 12/12/2016Submitted by: CARLOS Ballardditional Physician(s):WAQAS SCOTTLocation: Diagnostic interpretation performed at [facility], [address] [place] [address]. Normal [facility] Reference Lab Comment on above: Performed By: #### S ####See report for performing lab information. SURGICAL PATHOLOGYon 017 SURGICAL PATHOLOGY Specimen #: [id number] Physician: CARLOS CANO ___FINAL DIAGNOSIS1. Cecum polyp x 2, biopsy (A) - Tubular adenoma.- Separate fragment of polypoid colonic mucosa with extensive thermalartifact, cannot exclude adenoma.2. Transverse colon polyp, biopsy (B) - Fragments of tubular adenoma.IG/rw 11/10/2016 Pam Laurent M.D., Ph.D.(Electronic Signature) S PECIMEN SUBMITTEDA: CECUM POLYPS X2 B: TRANSVERSE COLON POLYP, BIOPSIES CLINICAL DATAHISTORY OF ADENOMATOUS COLON POLYPS, FAMILY HISTORY OF COLON CANCERCOLONOSCOPY WITH BIOPSY AND POLYPECTOMY: COLON POLYPS, DIVERTICULOSIS ANDINTERNAL HEMORRHOIDS GROSS DESCRIPTIONA. Received in formalin are multiple pieces of boykin, soft tissue aggregatingto 0.6 x 0.3 x 0.2 cm. Totally submitted in one cassette.B. Received in formalin is one piece of boykin, soft tissue measuring 0.5 x0.2 x 0.2 cm. Totally submitted in one cassette.Gross examination performed at [facility], [address] [place], [place] [id number] 11/09/2016 8:11:33 PMPatient ID #: Date of Report: 11/10/2016Date of Procedure: 11/09/2016Date of Receipt: 11/09/2016Submitted by: CARLOS CHARLESVencor Hospital Physician(s):WAQAS SCOTTLocation: Diagnostic interpretation performed at [facility], [address] [place] [address]. Normal [facility] Comment on above: Performed By: #### S ####See report for performing lab information. Otheron 02-16-2011 CONVERTED ELECTRONIC SIGNATURE LENO JARVIS(ASCP) (Electronic signature on file) Final Signed Out: 02/16/2011 15:12 [facility] CONVERTED FINAL DIAGNOSIS Relevant History: Hysterectomy: Y Comment: Please do an HPV reflex test if ASCUS. SPECIMEN ADEQUACY SATISFACTORY FOR EVALUATION. INTERPRETATION/RESULT NEGATIVE FOR INTRAEPITHELIAL LESION OR MALIGNANCY. [facility] CONVERTED GROSS DESCRIPTION SPECIMEN: THIN PREP VAGINAL CUFF [facility] CONVERTED ORDERING PROVIDER Ordering Provider: INDER THAPA [facility] CONVERTED PAP DISCLAIMER The Pap test serves as a screening tool for early detection of cervical cancer. The Pap test does not represent a final diagnostic test for cervical cancer. Furthermore, the Pap test was not designed to screen for other malignancies (endometrial, ovarian cancer, etc....). False negatives and false positives have occurred. If clinically indicated, further patient evaluation is recommended. [facility] Otheron 11-25-2008 CONVERTED ELECTRONIC SIGNATURE BRUCE LAY M.D., PATHOLOGIST (Electronic signature on file) Final Signed Out: 11/25/2008 13:25 [facility] CONVERTED FINAL DIAGNOSIS Relevant History: SPECIMEN ADEQUACY SATISFACTORY FOR EVALUATION. GENERAL CATEGORIZATION NEGATIVE FOR INTRAEPITHELIAL LESION OR MALIGNANCY. INTERPRETATION/RESULT HYPERKERATOSIS. [facility] CONVERTED GROSS DESCRIPTION SPECIMEN: THIN PREP VAGINAL CUFF [facility] CONVERTED ORDERING PROVIDER Ordering Provider: INDER THAPA [facility] CONVERTED PAP DISCLAIMER The Pap test serves as a screening tool for early detection of cervical cancer. The Pap test does not represent a final diagnostic test for cervical cancer. Furthermore, the Pap test was not designed to screen for other malignancies (endometrial, ovarian cancer, etc....). False negatives and false positives have occurred. If clinically indicated, further patient evaluation is recommended. [facility] Culture, urine Bacteria identified Cx Nom (U) Presumptive E. coli [facility] Work Phone: Vital Signs Date Time Vital Sign Value Performing Clinician Faci lity 10-01-2024 14:15-0400 Diastolic blood pressure 50 mm[Hg] Dr. Waqas Scott MD Work Phone: [facility] 10-01-2024 14:15-0400 Heart rate 67 /min Dr. Waqas Scott MD Work Phone: [facility] 10-01-2024 14:15-0400 Respiratory rate 16 /min Dr. Waqas Scott MD Work Phone: [facility] 10-01-2024 14:15-0400 SaO2% (BldA) [Mass fraction] 96 % Dr. Waqas Scott MD Work Phone: [facility] 10-01-2024 14:15-0400 Systolic blood pressure 106 mm[Hg] Dr. Waqas Scott MD Work Phone: [facility] 10-01-2024 14:08-0400 Body temperature 97.6 [degF] Dr. Waqas Scott MD Work Phone: [facility] 10-01-2024 10:18-0400 Body height 147.[address] Waqas Scott MD Work Phone: [facility] 10-01-2024 10:18-0400 Body mass index (BMI) [Ratio] 34.2 kg/m2 Dr. Waqas Scott MD Work Phone: [facility] 10-01-2024 10:18-0400 Body weight 74.[address] Waqas Scott MD Work Phone: 4(495)326-164660 [place] [address] 08-01-2024 08:57-0400 Diastolic blood pressure 95 mm[Hg] Dr. Waqas Scott MD Work Phone: 0(901)942-587560 [place] [address] 08-01-2024 08:57-0400 Heart rate 102 /min Dr. Waqas Scott MD Work Phone: 1(441)596-926460 [place] [address] 08-01-2024 08:57-0400 Respiratory rate 17 /min Dr. Waqas Scott MD Work Phone: 0(877)287-935160 [place] [address] 08-01-2024 08:57-0400 SaO2% (BldA) [Mass fraction] 100 % Dr. Waqas Scott MD Work Phone: 2(437)268-603160 [place] [address] 08-01-2024 08:57-0400 Systolic blood pressure 160 mm[Hg] Dr. Waqas Scott MD Work Phone: 6(465)551-206360 [place] [address] 07-22-2024 16:02-0400 Body mass index (BMI) [Ratio] 31.1 kg/m2 Dr. Waqas Scott MD Work Phone: 1(789)287-745560 [place] [address] 07-22-2024 16:02-0400 Body temperature 98.3 [degF] Dr. Waqas Scott MD Work Phone: 4(109)026-188660 [place] [address] 07-22-2024 16:02-0400 Body weight 67.[address] Waqas Scott MD Work Phone: 4(131)100-688160 [place] [address] 07-22-2024 16:02-0400 Diastolic blood pressure 71 mm[Hg] Dr. Waqsa Scott MD Work Phone: 7(528)083-122160 [place] [address] 07-22-2024 16:02-0400 Heart rate 70 /min Dr. Waqas Scott MD Work Phone: 4(248)131-024260 [place] [address] 07-22-2024 16:02-0400 Respiratory rate 18 /min Dr. Waqas Scott MD Work Phone: 8(254)917-955660 [place] [address] 07-22-2024 16:02-0400 SaO2% (BldA) [Mass fraction] 99 % Dr. Waqas Scott MD Work Phone: 5(081)528-966062 [address] 07-22-2024 16:02-0400 Systolic blood pressure 145 mm[Hg] Dr. Waqas Scott MD Work Phone: 8(783)008-036910 [place] [address] 04-15-2024 09:34-0500 Body height 147.[address] Waqas Scott MD Work Phone: 2(911)190-597560 [place] [address] 04-15-2024 09:34-0500 Body mass index (BMI) [Ratio] 31.2 kg/m2 Dr. Waaqs Scott MD Work Phone: 2(377)018-106360 [place] [address] 04-15-2024 09:34-0500 Body temperature 97.7 [degF] Dr. Waqas Scott MD Work Phone: 1(344)214-963560 [place] [address] 04-15-2024 09:34-0500 Body weight 67.[address] Waqas Scott MD Work Phone: 3(525)893-110260 [place] [address] 04-15-2024 09:34-0500 Diastolic blood pressure 71 mm[Hg] Dr. Waqas Scott MD Work Phone: 9(988)004-287160 [place] [address] 04-15-2024 09:34-0500 Heart rate 93 /min Dr. Waqas Scott MD Work Phone: 7(132)071-493460 [place] [address] 04-15-2024 09:34-0500 Respiratory rate 18 /min Dr. Waqas Scott MD Work Phone: 7(756)266-202460 [place] [address] 04-15-2024 09:34-0500 SaO2% (BldA) [Mass fraction] 95 % Dr. Waqas Scott MD Work Phone: 5(854)150-339360 [place] [address] 04-15-2024 09:34-0500 Systolic blood pressure 147 mm[Hg] Dr. Waqas Scott MD Work Phone: 3(767)474-790460 [place] [address] 05-29-2023 09:09-0500 Body height 147.[address] Waqas Scott Work Phone: 5(244)209-577560 [place] [address] 05-29-2023 09:09-0500 Body mass index (BMI) [Ratio] 31.4 kg/m2 Dr. Waqas Scott Work Phone: 8(846)531-603860 [place] [address] 05-29-2023 09:09-0500 Body temperature 97.4 [degF] Dr. Waqas Scott Work Phone: [facility] 05-29-2023 09:09-0500 Body weight 68.[address] Waaqs Scott Work Phone: [facility] 05-29-2023 09:09-0500 Diastolic blood pressure 78 mm[Hg] Dr. Waqas Scott Work Phone: [facility] 05-29-2023 09:09-0500 Heart rate 82 /min Dr. Waqas Scott Work Phone: [facility] 05-29-2023 09:09-0500 Respiratory rate 18 /min Dr. Waqas Scott Work Phone: [facility] 05-29-2023 09:09-0500 SaO2% (BldA) [Mass fraction] 98 % Dr. Waqas Scott Work Phone: [facility] 05-29-2023 09:09-0500 Systolic blood pressure 146 mm[Hg] Dr. Waqas Scott Work Phone: [facility] 01-30-2023 13:44-0400 Body height 147.[address] Waqas Scott Work Phone: [facility] 01-30-2023 13:44-0400 Body mass index (BMI) [Ratio] 32.3 kg/m2 Dr. Waqas Scott Work Phone: [facility] 01-30-2023 13:44-0400 Body temperature 98.9 [degF] Dr. Waqas Scott Work Phone: [facility] 01-30-2023 13:44-0400 Body weight 70.[address] Waqas Scott Work Phone: [facility] 01-30-2023 13:44-0400 Diastolic blood pressure 76 mm[Hg] Dr. Waqas Scott Work Phone: [facility] 01-30-2023 13:44-0400 Heart rate 89 /min Dr. Waqas Scott Work Phone: [facility] 01-30-2023 13:44-0400 Respiratory rate 18 /min Dr. Waqas Scott Work Phone: [facility] 01-30-2023 13:44-0400 SaO2% (BldA) [Mass fraction] 98 % Dr. Waqas Scott Work Phone: [facility] 01-30-2023 13:44-0400 Systolic blood pressure 167 mm[Hg] Dr. Waqas Scott Work Phone: [facility] 01-24-2023 09:18-0400 Body height 147.[address] Waqas Scott Work Phone: [facility] 01-24-2023 09:18-0400 Body mass index (BMI) [Ratio] 31.8 kg/m2 Dr. Waqas Scott Work Phone: [facility] 01-24-2023 09:18-0400 Body temperature 98.1 [degF] Dr. Waqas Scott Work Phone: [facility] 01-24-2023 09:18-0400 Body weight 69.[address] Waqas Scott Work Phone: [facility] 01-24-2023 09:18-0400 Diastolic blood pressure 81 mm[Hg] Dr. Waqas Scott Work Phone: [facility] 01-24-2023 09:18-0400 Heart rate 89 /min Dr. Waqas Scott Work Phone: [facility] 01-24-2023 09:18-0400 Respiratory rate 18 /min Dr. Waqas Scott Work Phone: [facility] 01-24-2023 09:18-0400 SaO2% (BldA) [Mass fraction] 100 % Dr. Waqas Scott Work Phone: [facility] 01-24-2023 09:18-0400 Systolic blood pressure 156 mm[Hg] Dr. Waqas Scott Work Phone: [facility] 09-20-2022 09:44-0400 Body height 147.[address] Waqas Scott Work Phone: [facility] 09-20-2022 09:44-0400 Body mass index (BMI) [Ratio] 32.6 kg/m2 Dr. Waqas Scott Work Phone: [facility] 09-20-2022 09:44-0400 Body temperature 96.9 [degF] Dr. Waqas Scott Work Phone: [facility] 09-20-2022 09:44-0400 Body weight 70.[address] Waqas Scott Work Phone: [facility] 09-20-2022 09:44-0400 Diastolic blood pressure 73 mm[Hg] Dr. Waqas Scott Work Phone: [facility] 09-20-2022 09:44-0400 Heart rate 78 /min Dr. Waqas Scott Work Phone: [facility] 09-20-2022 09:44-0400 Respiratory rate 16 /min Dr. Waqas Scott Work Phone: 0(780)474-710710 [place] [address] 09-20-2022 09:44-0400 SaO2% (BldA) [Mass fraction] 97 % Dr. Waqas Scott Work Phone: [facility] 09-20-2022 09:44-0400 Systolic blood pressure 155 mm[Hg] Dr. Waqas Scott Work Phone: [facility] 07-28-2022 13:56-0400 Body height 147.[address] Waqas Scott Work Phone: [facility] 07-28-2022 13:56-0400 Body mass index (BMI) [Ratio] 32.5 kg/m2 Dr. Waqas Scott Work Phone: [facility] 07-28-2022 13:56-0400 Body temperature 98.2 [degF] Dr. Waqas Scott Work Phone: [facility] 07-28-2022 13:56-0400 Body weight 70.[address] Waqas Scott Work Phone: [facility] 07-28-2022 13:56-0400 Diastolic blood pressure 77 mm[Hg] Dr. Waqas Scott Work Phone: [facility] 07-28-2022 13:56-0400 Heart rate 87 /min Dr. Waqas Scott Work Phone: [facility] 07-28-2022 13:56-0400 Respiratory rate 16 /min Dr. Waqas Scott Work Phone: [facility] 07-28-2022 13:56-0400 SaO2% (BldA) [Mass fraction] 98 % Dr. Waqas Scott Work Phone: [facility] 07-28-2022 13:56-0400 Systolic blood pressure 157 mm[Hg] Dr. Waqas Scott Work Phone: [facility] 05-23-2022 09:35-0500 Body mass index (BMI) [Ratio] 33.7 kg/m2 Dr. Waqas Scott Work Phone: [facility] 05-23-2022 09:35-0500 Body temperature 97.8 [degF] Dr. Waqas Scott Work Phone: [facility] [facility] 05-23-2022 09:35-0500 Body weight 73.[address] Waqas Scott Work Phone: [facility] 05-23-2022 09:35-0500 Diastolic blood pressure 78 mm[Hg] Dr. Waqas Scott Work Phone: [facility] 05-23-2022 09:35-0500 Heart rate 80 /min Dr. Waqas Scott Work Phone: [facility] 05-23-2022 09:35-0500 Respiratory rate 18 /min Dr. Waqas Scott Work Phone: [facility] 05-23-2022 09:35-0500 SaO2% (BldA) [Mass fraction] 80 % Dr. Waqas Scott Work Phone: [facility] 05-23-2022 09:35-0500 Systolic blood pressure 156 mm[Hg] Dr. Waqas Scott Work Phone: [facility] 05-05-2022 12:52-0500 Body mass index (BMI) [Ratio] 32.8 kg/m2 Dr. Waqas Scott Work Phone: [facility] 05-05-2022 12:52-0500 Body temperature 98.2 [degF] Dr. Waqas Scott Work Phone: [facility] 05-05-2022 12:52-0500 Body weight 71.[address] Waqas Scott Work Phone: [facility] 05-05-2022 12:52-0500 Diastolic blood pressure 61 mm[Hg] Dr. Waqas Scott Work Phone: [facility] 05-05-2022 12:52-0500 Heart rate 77 /min Dr. Waqas Scott Work Phone: [facility] 05-05-2022 12:52-0500 Respiratory rate 17 /min Dr. Waqas Scott Work Phone: [facility] 05-05-2022 12:52-0500 SaO2% (BldA) [Mass fraction] 99 % Dr. Waqas Scott Work Phone: [facility] 05-05-2022 12:52-0500 Systolic blood pressure 139 mm[Hg] Dr. Waqas Scott Work Phone: [facility] 04-26-2022 10:26-0500 Body mass index (BMI) [Ratio] 33.3 kg/m2 Dr. Waqas Scott Work Phone: [facility] 04-26-2022 10:26-0500 Body temperature 97 [degF] Dr. Waqas Scott Work Phone: [facility] 04-26-2022 10:26-0500 Body weight 72.[address] Waqas Scott Work Phone: [facility] 04-26-2022 10:26-0500 Diastolic blood pressure 79 mm[Hg] Dr. Waqas Scott Work Phone: [facility] 04-26-2022 10:26-0500 Heart rate 81 /min Dr. Waqas Scott Work Phone: [facility] 04-26-2022 10:26-0500 Respiratory rate 16 /min Dr. Waqas Scott Work Phone: [facility] 04-26-2022 10:26-0500 SaO2% (BldA) [Mass fraction] 96 % Dr. Waqas Scott Work Phone: [facility] 04-26-2022 10:26-0500 Systolic blood pressure 144 mm[Hg] Dr. Waqas Scott Work Phone: [facility] 04-20-2022 10:11-0500 Body mass index (BMI) [Ratio] 33.3 kg/m2 Dr. Waqas Scott Work Phone: [facility] 04-20-2022 10:11-0500 Body temperature 97 [degF] Dr. Waqas Scott Work Phone: [facility] 04-20-2022 10:11-0500 Body weight 72.[address] Waqas Scott Work Phone: [facility] 04-20-2022 10:11-0500 Diastolic blood pressure 84 mm[Hg] Dr. Waqas Scott Work Phone: [facility] 04-20-2022 10:11-0500 Heart rate 75 /min Dr. Waqas Scott Work Phone: [facility] 04-20-2022 10:11-0500 Respiratory rate 16 /min Dr. Waqas Scott Work Phone: [facility] 04-20-2022 10:11-0500 SaO2% (BldA) [Mass fraction] 99 % Dr. Waqas Scott Work Phone: [facility] 04-20-2022 10:11-0500 Systolic blood pressure 158 mm[Hg] Dr. Waqas Scott Work Phone: [facility] 04-13-2022 10:08-0500 Body mass index (BMI) [Ratio] 33.4 kg/m2 Dr. Waqas Scott Work Phone: [facility] 04-13-2022 10:08-0500 Body temperature 97.8 [degF] Dr. Waqas Scott Work Phone: [facility] 04-13-2022 10:08-0500 Body weight 72.[address] Waqas Scott Work Phone: [facility] 04-13-2022 10:08-0500 Diastolic blood pressure 70 mm[Hg] Dr. Waqas Scott Work Phone: [facility] 04-13-2022 10:08-0500 Heart rate 78 /min Dr. Waqas Scott Work Phone: [facility] 04-13-2022 10:08-0500 Respiratory rate 18 /min Dr. Waqas Scott Work Phone: [facility] 04-13-2022 10:08-0500 SaO2% (BldA) [Mass fraction] 99 % Dr. Waqas Scott Work Phone: [facility] 04-13-2022 10:08-0500 Systolic blood pressure 148 mm[Hg] Dr. Waqas Scott Work Phone: [facility] 04-06-2022 10:09-0500 Body mass index (BMI) [Ratio] 33.4 kg/m2 Dr. Waqas Scott Work Phone: [facility] 04-06-2022 10:09-0500 Body temperature 97.1 [degF] Dr. Waqas Scott Work Phone: [facility] 04-06-2022 10:09-0500 Body weight 72.[address] Waqas Scott Work Phone: [facility] 04-06-2022 10:09-0500 Diastolic blood pressure 64 mm[Hg] Dr. Waqas Scott Work Phone: [facility] 04-06-2022 10:09-0500 Heart rate 65 /min Dr. Waqas Scott Work Phone: [facility] 04-06-2022 10:09-0500 Respiratory rate 16 /min Dr. Waqas Scott Work Phone: [facility] 04-06-2022 10:09-0500 SaO2% (BldA) [Mass fraction] 100 % Dr. Waqas Scott Work Phone: [facility] 04-06-2022 10:09-0500 Systolic blood pressure 135 mm[Hg] Dr. Waqas Scott Work Phone: [facility] 01-24-2022 16:07-0400 Body height 147.[address] Waqas Scott Work Phone: [facility] Work Phone: 01-24-2022 15:56-0400 Body mass index (BMI) [Ratio] 33.7 kg/m2 Dr. Waqas Scott Work Phone: [facility] Work Phone: 01-24-2022 15:56-0400 Body weight 73.[address] Waqas Scott Work Phone: [facility] Work Phone: 01-24-2022 15:56-0400 Diastolic blood pressure 65 mm[Hg] Dr. Waqas Scott Work Phone: [facility] Work Phone: 01-24-2022 15:56-0400 Heart rate 79 /min Dr. Waqas Scott Work Phone: [facility] Work Phone: 01-24-2022 15:56-0400 Respiratory rate 16 /min Dr. Waqas Scott Work Phone: [facility] Work Phone: 01-24-2022 15:56-0400 Systolic blood pressure 132 mm[Hg] Dr. Waqas Scott Work Phone: [facility] Work Phone: 01-05-2022 14:55-0400 Body temperature 97.9 [degF] Dr. Waqas Scott Work Phone: [facility] Work Phone: 01-05-2022 14:55-0400 Diastolic blood pressure 45 mm[Hg] Dr. Waqas Scott Work Phone: [facility] Work Phone: 01-05-2022 14:55-0400 Heart rate 60 /min Dr. Waqas Scott Work Phone: [facility] Work Phone: 01-05-2022 14:55-0400 Respiratory rate 18 /min Dr. Waaqs Scott Work Phone: [facility] Work Phone: 01-05-2022 14:55-0400 SaO2% (BldA) [Mass fraction] 99 % Dr. Waqas Scott Work Phone: [facility] Work Phone: 01-05-2022 14:55-0400 Systolic blood pressure 116 mm[Hg] Dr. Waqas Scott Work Phone: [facility] Work Phone: 01-05-2022 14:00-0400 Inhaled oxygen flow rate 2 L/min Dr. Waqas Scott Work Phone: [facility] Work Phone: 01-05-2022 08:35-0400 Body temperature 98.2 [degF] Dr. Waqas Scott Work Phone: [facility] Work Phone: 01-05-2022 08:35-0400 Diastolic blood pressure 50 mm[Hg] Dr. Waqas Scott Work Phone: [facility] Work Phone: 01-05-2022 08:35-0400 Heart rate 68 /min Dr. Waqas Scott Work Phone: [facility] Work Phone: 01-05-2022 08:35-0400 Respiratory rate 18 /min Dr. Waqas Scott Work Phone: [facility] Work Phone: 01-05-2022 08:35-0400 SaO2% (BldA) [Mass fraction] 97 % Dr. Waqas Scott Work Phone: [facility] Work Phone: 01-05-2022 08:35-0400 Systolic blood pressure 140 mm[Hg] Dr. Waqas Scott Work Phone: [facility] Work Phone: 01-04-2022 11:52-0400 Body height 147.[address] Waqas Scott Work Phone: [facility] Work Phone: 01-04-2022 11:52-0400 Body mass index (BMI) [Ratio] 34 kg/m2 Dr. Waqas Scott Work Phone: [facility] Work Phone: 01-04-2022 11:52-0400 Body weight [address] Waqas Scott Work Phone: [facility] Work Phone: 12-15-2021 13:06-0400 Body mass index (BMI) [Ratio] 33.8 kg/m2 Dr. Waqas Scott Work Phone: [facility] Work Phone: 12-15-2021 13:06-0400 Body temperature 97.4 [degF] Dr. Waqas Scott Work Phone: [facility] Work Phone: 12-15-2021 13:06-0400 Body weight 73.[address] Waqas Scott Work Phone: [facility] Work Phone: 12-15-2021 13:06-0400 Diastolic blood pressure 68 mm[Hg] Dr. Waqas Scott Work Phone: [facility] Work Phone: 12-15-2021 13:06-0400 Heart rate 82 /min Dr. Waqas Scott Work Phone: [facility] Work Phone: 12-15-2021 13:06-0400 Respiratory rate 16 /min Dr. Waqas Scott Work Phone: [facility] Work Phone: 12-15-2021 13:06-0400 SaO2% (BldA) [Mass fraction] 100 % Dr. Waqas Scott Work Phone: [facility] Work Phone: 12-15-2021 13:06-0400 Systolic blood pressure 127 mm[Hg] Dr. Waqas Scott Work Phone: [facility] Work Phone: 10-28-2021 11:16-0400 Body mass index (BMI) [Ratio] 34.9 kg/m2 Dr. Waqas Scott Work Phone: [facility] Work Phone: 10-28-2021 11:16-0400 Body temperature 98.2 [degF] Dr. Waqas Scott Work Phone: [facility] Work Phone: 10-28-2021 11:16-0400 Body weight 75.[address] Waqas Scott Work Phone: [facility] Work Phone: 10-28-2021 11:16-0400 Diastolic blood pressure 74 mm[Hg] Dr. Waqas Scott Work Phone: [facility] Work Phone: 10-28-2021 11:16-0400 Heart rate 84 /min Dr. Waqas Scott Work Phone: [facility] Work Phone: 10-28-2021 11:16-0400 Respiratory rate 15 /min Dr. Waqas Scott Work Phone: [facility] Work Phone: 10-28-2021 11:16-0400 SaO2% (BldA) [Mass fraction] 99 % Dr. Waqas Scott Work Phone: [facility] Work Phone: 10-28-2021 11:16-0400 Systolic blood pressure 156 mm[Hg] Dr. Waqas Scott Work Phone: [facility] Work Phone: 10-11-2021 15:38-0400 Body mass index (BMI) [Ratio] 34.3 kg/m2 Dr. Waqas Scott Work Phone: [facility] Work Phone: 10-11-2021 15:38-0400 Body temperature 98 [degF] Dr. Waqas Scott Work Phone: [facility] Work Phone: 10-11-2021 15:38-0400 Body weight 74.[address] Waqas Scott Work Phone: [facility] Work Phone: 10-11-2021 15:38-0400 Diastolic blood pressure 70 mm[Hg] Dr. Waqas Scott Work Phone: [facility] Work Phone: 10-11-2021 15:38-0400 Heart rate 86 /min Dr. Waqas Scott Work Phone: [facility] Work Phone: 10-11-2021 15:38-0400 Respiratory rate 18 /min Dr. Waqas Scott Work Phone: [facility] Work Phone: 10-11-2021 15:38-0400 SaO2% (BldA) [Mass fraction] 99 % Dr. Waqas Scott Work Phone: [facility] Work Phone: 10-11-2021 15:38-0400 Systolic blood pressure 138 mm[Hg] Dr. Waqas Scott Work Phone: [facility] Work Phone: 08-27-2021 10:09-0400 Body height 147.[address] Waqas Scott Work Phone: [facility] Work Phone: 08-27-2021 10:09-0400 Body mass index (BMI) [Ratio] 34.4 kg/m2 Dr. Waqas Scott Work Phone: [facility] Work Phone: 08-27-2021 10:09-0400 Body temperature 97.4 [degF] Dr. Waqas Scott Work Phone: [facility] Work Phone: 08-27-2021 10:09-0400 Body weight 74.[address] Waqas Scott Work Phone: [facility] Work Phone: 08-27-2021 10:09-0400 Diastolic blood pressure 77 mm[Hg] Dr. Waqas Scott Work Phone: [facility] Work Phone: 08-27-2021 10:09-0400 Heart rate 92 /min Dr. Waqas Scott Work Phone: [facility] Work Phone: 08-27-2021 10:09-0400 Respiratory rate 18 /min Dr. Waqas Scott Work Phone: [facility] Work Phone: 08-27-2021 10:09-0400 SaO2% (BldA) [Mass fraction] 100 % Dr. Waqas Scott Work Phone: [facility] Work Phone: 05-27-2022 10:09-0400 Systolic blood pressure 137 mm[Hg] Dr. Waqas Scott Work Phone: [facility] Work Phone: 08-27-2021 10:09-0400 Body height 147.[address] Waqas Scott Work Phone: [facility] Work Phone: 08-27-2021 10:09-0400 Body mass index (BMI) [Ratio] 34.4 kg/m2 Dr. Waqas Scott Work Phone: [facility] Work Phone: 08-27-2021 10:09-0400 Body temperature 97.4 [degF] Dr. Waqas Scott Work Phone: [facility] Work Phone: 08-27-2021 10:09-0400 Body weight 74.[address] Waqas Scott Work Phone: [facility] Work Phone: 08-27-2021 10:09-0400 Diastolic blood pressure 77 mm[Hg] Dr. Waqas Scott Work Phone: [facility] Work Phone: 08-27-2021 10:09-0400 Heart rate 92 /min Dr. Waqas Scott Work Phone: [facility] Work Phone: 08-27-2021 10:09-0400 Respiratory rate 18 /min Dr. Waqas Scott Work Phone: [facility] Work Phone: 08-27-2021 10:09-0400 SaO2% (BldA) [Mass fraction] 100 % Dr. Waqas Scott Work Phone: [facility] Work Phone: 08-27-2021 10:09-0400 Systolic blood pressure 137 mm[Hg] Dr. Waqas Scott Work Phone: [facility] Work Phone: Encounters Encounter Date Encounter Type Care Provider Facility Start: 10-01-2024 Evaluation and management of inpatient Dr. Dedrick Mckeon MD -Progressive Care Unit Work Phone: Start: 08-01-2024 End: 08-01-[address] Zahida Arroyo MD -[facility] Work Phone: Start: 08-01-2024 End: 08-01-2024 ambulatory Zahida Arroyo Facility:[facility] Start: 07-22-[address] Robinson Baker on [facility] Start: 07-22-2024 End: 07-22-[address] Alonzo John MD -[facility] Work Phone: Start: 07-22-2024 End: 07-22-2024 [facility] Start: 07-15-2024 End: 07-15-[address] Waqas Scott MD Work Phone: [facility] Work Phone: Start: 07-15-2024 End: 07-15-[address] Waqas Scott MD -Laboratory, Specimen Work Phone: Start: 07-15-2024 End: 07-15-2024 ambulatory Waqas Scott Facility:[facility] Start: 04-15-2024 End: 04-15-[address] Robinson Yepez [facility] Work Phone: Start: 04-15-2024 End: 04-15-2024 ambulatory Waqas Scott Facility:[facility] Start: 01-29-2024 End: 01-29-2024 ambulatory [place] Facility:[facility] Start: 01-18-2024 End: 01-18-2024 ambulatory Waqas Scott Facility:[facility] Start: 10-03-2023 End: 10-03-2023 ambulatory Waqas Scott Facility:[facility] Start: 09-29-2023 End: 09-29-2023 ambulatory Robinson Yepez Facility:[facility] Start: 07-22-2023 End: 07-22-[address] Waqas Scott Work Phone: [facility] Work Phone: Start: 07-22-2023 End: 07-22-[address] [facility] Start: 05-29-2023 End: 05-29-[address] Waqas Scott Work Phone: [facility] Work Phone: Start: 01-30-[address] Waqas Scott Work Phone: [facility] Start: 01-30-2023 End: 01-30-[address] Waqas Scott Work Phone: [facility] Work Phone: Start: 01-24-2023 End: 01-24-[address] Waqas Scott Work Phone: [facility] Work Phone: Start: 01-19-2023 End: 01-19-[address] Waqas Scott Work Phone: [facility] Work Phone: Start: 01-19-2023 End: 01-19-[address] Waqas Scott Work Phone: [facility] Start: 10-25-2022 End: 10-25-[address] Waqas Scott Work Phone: [facility] Work Phone: Start: 10-25-2022 End: 10-25-[address] [facility] Start: 10-25-[address] [facility] Start: 09-27-[address] [facility] Start: 09-26-2022 End: 09-26-[address] Waqas Scott Work Phone: [facility] Work Phone: Start: 09-26-2022 End: 09-26-[address] Waqas Scott Work Phone: [facility] Work Phone: Start: 09-20-[address] Waqas Scott Work Phone: [facility] Start: 09-20-2022 End: 09-20-[address] Waqas Scott Work Phone: [facility] Start: 09-16-2022 End: 09-16-[address] Waqas Scott Work Phone: [facility] Work Phone: Start: 09-16-2022 End: 09-16-[address] Waqas Scott Work Phone: [facility] Start: 09-13-[address] [facility] Start: 07-28-[address] Waqas Scott Work Phone: [facility] Start: 07-28-2022 End: 07-28-[address] Waqas Scott Work Phone: [facility] Start: 05-23-2022 End: 05-23-[address] Waqas Scott Work Phone: [facility] Start: 05-05-2022 End: 05-05-[address] Waqas Scott Work Phone: [facility] Start: 04-26-2022 End: 04-26-[address] Waqas Scott Work Phone: [facility] Start: 04-20-2022 End: 04-20-[address] Waqas Scott Work Phone: [facility] Start: 04-13-2022 End: 04-13-[address] Waqas Scott Work Phone: [facility] Start: 04-06-2022 End: 04-06-[address] Waqas Scott Work Phone: [facility] Start: 02-01-2022 End: 02-01-[address] Waqas Scott Work Phone: [facility] Start: 01-27-2022 End: 01-27-[address] Waqas Scott Work Phone: [facility] Work Phone: Start: 01-27-2022 End: 01-27-[address] Waqas Scott Work Phone: [facility]-Outpatient Bone Densitometry Start: 01-25-2022 End: 01-25-[address] Waqas Scott Work Phone: [facility] Start: 01-24-2022 End: 01-24-[address] Waqas Scott Work Phone: [facility] Start: 01-19-2022 End: 01-19-[address] Waqas Scott Work Phone: [facility] Start: 01-07-2022 End: 01-07-[address] Waqas Scott Work Phone: [facility] Start: 01-05-2022 Non-patient / Non-visit Dr. Chandra Scott Work Phone: [facility] Start: 01-04-2022 End: 01-05-2022 Evaluation and management of inpatient Dr. Waqas Scott Work Phone: [facility]-Medical Surgical 3 Start: 01-04-2022 End: 01-05-[address] Waqas Scott Work Phone: [facility] Work Phone: Start: 01-04-2022 Non-patient / Non-visit Dr. Chandra Scott Work Phone: [facility] Start: 12-15-2021 End: 12-15-[address] Waqas Scott Work Phone: [facility] Start: 10-28-2021 End: 10-28-[address] Waqas Scott Work Phone: [facility] Start: 10-28-[address] Waqas Scott Work Phone: [facility] Start: 10-26-2021 Non-patient / Non-visit Dr. Chandra Scott Work Phone: [facility] Start: 10-26-2021 End: 10-26-[address] Waqas Scott Work Phone: [facility]-Cardiovascular Services Start: 10-21-2021 End: 10-21-[address] Waqas Scott Work Phone: [facility]-Nuclear Medicine, [facility] Start: 10-18-2021 End: 10-18-[address] Waqas Scott Work Phone: [facility]-Cat Scan, [facility] Start: 10-11-2021 End: 10-11-[address] Waqas Scott Work Phone: [facility] Start: 10-08-2021 Non-patient / Non-visit Dr. Chandra Scott Work Phone: [facility] Start: 10-08-2021 End: 10-08-[address] Waqas Scott Work Phone: [facility] Start: 10-01-2021 End: 10-01-[address] [facility] Start: 10-01-2021 End: 10-01-[address] Waqas Scott Work Phone: [facility] Start: 09-08-2021 End: 09-08-[address] Waqas Scott Work Phone: [facility] Start: 09-01-2021 End: 09-01-[address] Waqas Scott Work Phone: [facility] Start: 08-27-2021 End: 08-27-[address] Waqas Scott Work Phone: [facility] Start: 08-20-2021 End: 08-20-2021 Patient encounter procedure [facility]-Outpatient Breast Imaging Start: 08-18-2021 End: 08-18-2021 Patient encounter procedure [facility] Start: 02-10-2011 End: 02-10-2011 Patient encounter procedure Inder Thapa Work Phone: [facility] Start: 02-10-2011 Results Only Inder Thapa Work Phone: [facility] Start: 11-13-2008 End: 11-13-2008 Patient encounter procedure Inder Thapa Work Phone: [facility] Start: 11-13-2008 Results Only Inder Thapa Work Phone: [facility] Procedures Date Procedure Procedure Detail Performing Clinician Start: 10-01-2024 Urnls dip stick/tabl et reagent auto microscopy Dr. Waqas Scott MD Work Phone: Start: 10-01-[address] Waqas Scott MD Work Phone: Start: 10-01-2024 Plain chest X-ray Dr. Milagro Scott MD Work Phone: Start: 07-22-2024 X-ray of cervical spine Dr. Waqas Scott MD Work Phone: Start: 07-22-[address] Waqas Scott MD Work Phone: Start: 07-15-2024 Urnls dip stick/tabl et reagent auto microscopy Dr. Waqas Scott MD Work Phone: Start: 07-15-[address] Waqas Scott MD Work Phone: Start: 01-29-2024 Urnls dip stick/tabl et reagent auto microscopy Dr. Waqas Scott MD Work Phone: Start: 01-29-2024 Assay of phosphorus inorganic Dr. Waqas Scott MD Work Phone: Start: 01-29-2024 Measurement of renal function Dr. Waqas Scott MD Work Phone: Comment on above: GFR Calc Start: 01-29-[address] Waqas Scott MD Work Phone: Start: 07-31-2023 Vitamin D, 25-hydrox y measurement Dr. Waqas Scott MD Work Phone: Comment on above: Vitamin D 25(OH) Sta tus Range Deficiency <20 ng/mL (50nmol/L) Insufficiency 20 - 30 ng/mL (50 - 75 nmol/L) Sufficiency 30 - 100 ng/mL (75 - 250 nmol/L) Toxicity >100 ng/mL (>250 nmol/L) Start: 09-26-2022 CT of lumbar spine Dr. Waqas Scott Work Phone: Start: 09-26-2022 CT of pelvis with contrast Dr. Waqas Scott Work Phone: Start: 09-26-2022 Screening mammograph y of right breast Dr. Waqas Scott Work Phone: Start: 09-16-2022 X-ray of lumbosacral spine Dr. Waqas Scott Work Phone: Start: 09-16-2022 Plain x-ray of pelvi s and lower extremity Dr. Waqas Scott Work Phone: Start: 02-23-2022 PET study for locali zation of tumor Dr. Waqas Scott Work Phone: Start: 01-27-2022 Dual energy X-ray absorptiometry Dr. Waqas Scott Work Phone: Start: 01-04-[address] Enedina Scott Work Phone: Start: 01-04-2022 Mastectomy Modified Radical Axil Node (Left) Dr. Waqas Scott Work Phone: Start: 10-21-2021 Radionuclide whole b toribio bone study Dr. Waqas Scott Work Phone: Start: 10-18-2021 CT of chest and abdomen Dr. Waqas Scott Work Phone: Start: 09-08-2021 MRI of bilateral gilmer asts with contrast Dr. Waqas Scott Work Phone: Start: 09-01-[address] Waqas Scott Work Phone: Start: 08-20-2021 Mammography Start: 08-20-2021 Ultrasonography of breast Start: 02-10-2011 CONVERTED CYTOLOGY POTATO SPOTTER Inder Thapa Work Phone: Start: 11-13-2008 CONVERTED CYTOLOGY POTATO SPOTTER Inder Thapa Work Phone: Urine culture Dr. Waqas ramirez Work Phone: Plan of Treatment Date Care Activity Detail Author Start: 10-01-2024 Bacteria identified in Urine by Culture Urine Culture [facility] Start: 10-01-2024 Verification routine [facility] Start: 10-01-2024 Admission procedure [facility] Start: 10-01-2024 Hospital admission, emergency, from emergency room, medical nature [facility] Start: 10-01-2024 [facility] Start: 07-28-2022 Patient referral [facility] Work Phone: Start: 01-05-2022 Patient discharge [facility] Work Phone: Start: 01-04-2022 Anes integ extremities ant trunk & perineum nos ANESTH SKIN EXT/PER/ATRUNK [facility] Work Phone: Start: 01-04-2022 Bx/exc lymph node open deep axillary node BIOPSY/REMOVAL LYMPH NODES [facility] Work Phone: Start: 01-04-2022 Mastectomy simple complete MAST SIMPLE COMPLETE [facility] Work Phone: Start: 01-04-2022 Following clinical pathway protocol [facility] Work Phone: Start: 01-04-2022 Application of intermittent pneumatic compression device [facility] Work Phone: Start: 01-04-2022 Ambulation without limitation [facility] Work Phone: Start: 01-04-2022 Catheterization of vein [facility] Work Phone: Start: 01-04-2022 Incentive spirometry [facility] Work Phone: Start: 01-04-2022 Maintenance of drainage tube [facility] Work Phone: Start: 01-04-2022 Measuring intake and output [facility] Work Phone: Start: 01-04-2022 Notification of physician [facility] Work Phone: Start: 01-04-2022 Vital signs measurements [facility] Work Phone: Start: 01-04-2022 [facility] Work Phone: Start: 01-04-2022 Admission procedure [facility] Work Phone: Start: 10-08-2021 Patient referral [facility] Work Phone: Start: 08-20-2021 Ultrasonography of breast [facility] Work Phone: Cancer Ag 15-3 [Pres ence] in Serum or Plasma [facility] Cancer Ag 27-29 [Pre sence] in Serum or Plasma [facility] CBC W Auto Different ial panel - Blood [facility] Work Phone: CBC W Auto Different ial panel - Blood [facility] CBC W Auto Different ial panel - Blood [facility] CBC W Auto Different ial panel - Blood [facility] Comprehensive metabo lic 2000 panel - Serum or Plasma [facility] CT Lumbar spine [facility] CT Pelvis W contrast IV [facility] Electrocardiographic procedure [facility] Work Phone: Lactate dehydrogenas e measurement [facility] Lactate dehydrogenas e measurement [facility] Lactate dehydrogenas e measurement [facility] LDH [facility] Work Phone: Magnesium [Mass/volu me] in Serum or Plasma [facility] MG Breast - right Screening [facility] MG Breast - right Screening [facility] MG Breast - right Screening [facility] NM Whole body Bone Views [facility] Work Phone: Patient referral [facility] Work Phone: Urine culture [facility] US Heart [facility] Work Phone: [facility] Immunizations Immunization Date Immunization Notes Care Provider Baltazar tristan 01-29-2020 influenza, injectabl e, quadrivalent, preservative free Dr. Waqas Scott Work Phone: [facility] 01-29-2020 influenza, seasonal, injectable [facility] Payers Date Payer Category Payer Self-pay [id number] 2011 Medicare [id number] [facility] [id number] Unknown [id number] [id number] Unknown [id number] 2.16.8 [id number] Unknown [id number] 2.16.8 [id number] Unknown [id number] 2.16.8 [id number] Unknown [id number] 2.16.8 [id number] Unknown [id number] 2.16.8 [id number] Unknown [id number] 2.16.8 [id number] Unknown [id number] 2.16.8 [id number] Unknown [id number] [id number] [id number] Social History Date Type Detail Facility Tobacco smoking status NHIS Unknown if ever smoked [facility] Sex Assigned At Not on file [facility] Start: 03-18-2020 End: 12-28-2021 Tobacco smoking status NHIS Unknown if ever smoked [facility] Start: 03-05-2020 None [facility] Start: 03-05-2020 Spouse/ Signif icant Other [facility] Start: 03-05-2020 Non-smoker [facility] Start: 1935 Sex Assigned At Female [facility] Start: 12-28-2021 End: 10-01-2024 Tobacco smoking status NHIS Never smoked tobacco (finding) [facility] Start: 07-18-2024 Sex Female (finding) [facility] Medical Equipment Procedure Code Equipment Code Equipment Origin al Text Equipment Identifier Dates SUTURE,LIGA CLIP MED [id number] FDA Start: 01-04-2022 SUTURE,LIGA CLIP MED [id number] FDA Start: 01-04-2022 SUTURE,LIGA CLIP SM LT-100 FDA Start: 01-04-2022 SUTURE,LIGA CLIP SM LT-100 FDA Start: 01-04-2022 Ligation clip, yannick [id number] FDA Start: 01-04-2022 SUTURE,LIGA CLIP MED LT200 FDA Start: 01-04-2022 SUTURE,LIGA CLIP MED LT200 FDA Start: 01-04-2022 SUTURE,LIGA CLIP SM LT-100 FDA Start: 01-04-2022 SUTURE,LIGA CLIP SM LT-100 FDA Start: 01-04-2022 SUTURE,LIGA CLIP MED [id number] FDA Start: 01-04-2022 SUTURE,LIGA CLIP MED [id number] FDA Start: 01-04-2022 SUTURE,LIGA CLIP SM LT-100 FDA Start: 01-04-2022 SUTURE,LIGA CLIP SM LT-100 FDA Start: 01-04-2022 SUTURE,LIGA CLIP MED LT200 FDA Start: 01-04-2022 SUTURE,LIGA CLIP MED LT200 FDA Start: 01-04-2022 SUTURE,LIGA CLIP SM LT-100 FDA Start: 01-04-2022 SUTURE,LIGA CLIP SM LT-100 FDA Start: 01-04-2022 SUTURE,LIGA CLIP MED LT200 FDA Start: 01-04-2022 SUTURE,LIGA CLIP MED [id number] FDA Start: 01-04-2022 SUTURE,LIGA CLIP SM LT-100 FDA Start: 01-04-2022 SUTURE,LIGA CLIP SM LT-100 FDA Start: 01-04-2022 SUTURE,LIGA CLIP MED LT200 FDA Start: 01-04-2022 SUTURE,LIGA CLIP MED LT200 FDA Start: 01-04-2022 SUTURE,LIGA CLIP SM LT-100 FDA Start: 01-04-2022 SUTURE,LIGA CLIP SM LT-100 FDA Start: 01-04-2022 SUTURE,LIGA CLIP MED LT200 FDA Start: 01-04-2022 SUTURE,LIGA CLIP MED LT200 FDA Start: 01-04-2022 SUTURE,LIGA CLIP SM LT-100 FDA Start: 01-04-2022 SUTURE,LIGA CLIP SM LT-100 FDA Start: 01-04-2022 SUTURE,LIGA CLIP MED LT200 FDA Start: 01-04-2022 SUTURE,LIGA CLIP MED LT200 FDA Start: 01-04-2022 SUTURE,LIGA CLIP SM LT-100 FDA Start: 01-04-2022 SUTURE,LIGA CLIP SM LT-100 FDA Start: 01-04-2022 SUTURE,LIGA CLIP MED LT200 FDA Start: 01-04-2022 SUTURE,LIGA CLIP MED LT200 FDA Start: 01-04-2022 SUTURE,LIGA CLIP SM LT-100 FDA Start: 01-04-2022 SUTURE,LIGA CLIP SM LT-100 FDA Start: 01-04-2022 premier protein 30 g Star t: 01-29-2024 SUTURE,LIGA CLIP MED LT200 FDA Start: 01-04-2022 SUTURE,LIGA CLIP MED LT200 FDA Start: 01-04-2022 SUTURE,LIGA CLIP SM LT-100 FDA Start: 01-04-2022 SUTURE,LIGA CLIP SM LT-100 FDA Start: 01-04-2022 premier protein 30 g Star t: 01-29-2024 Goals Date Patient Goal Desired Activity /State Functional Status Date Assessment Result Facility 01-05-2022 Functional status Ambulates;Chair [facility] Work Phone: Mental Status Date Assessment Result Facility 10-01-2024 Cognitive function Level Of Cons ciousness Awake;Alert;Appropriate;Follow s Commands [facility] Work Phone: 07-28-2022 Cognitive function Awake;Alert;A ppropriate;Follow s Commands [facility] Work Phone: 01-05-2022 Cognitive function Level Of Cons ciousness Awake;Alert;Appropriate;Follow s Commands [facility] Work Phone: 01-04-2022 Cognitive function Voice/Name [facility] Work Phone: Clinical Notes 02-10-2023 to 10-01-2024 Note Date & Type Note Facility 10-01-2024 Discharge summary Note Date/Time October 01, 2024 12:47pm [facility] Medical Records Department [address] [place] [address] Emergency Department Summary 10/01/24 MR#: [id number] Acct: [id number] Name: NESTOR MONTES DE OCA I Rep #:[id number] : 1935 89 From: Renzo Ward MD PCP: Dr. Waqas Scott MD Status:REG E R Location: ED [facility] History of Present Illness Chief Complaint: Edema Narrative Narrative: 89-year-old female past medical history of hypertension presents with swelling of her bilateral lower extremities left greater than right as well as rapid heart rate that she has had for the last 2 weeks. She states that she has noticed that her heart rate has been elevated recently over the last 2 weeks, ashigh as 148 bpm. Sometimes someone 130s. She had swelling of her bilateral lower extremities as well. No fevers or chills, no nausea or vomiting, no cough. She went to her primary care provider's office today and saw the nurse practitioner who noticed that she was in atrial fibrillation with RVR. This is a new diagnosis for her. She denies history of heart failure or any other problems with her heart so she states. [facility] Medical History Wears hearing aid Wears glasses Ambulates with cane DVT (deep venous thrombosis) Non-smoker History of echocardiogram GERD (gastroesophageal reflux disease) Constipation Arthritis Back problem Breast cancer HTN (hypertension) Home Medications ?Medication ?Instructions ?Recorded ?Last Taken ?Type amlodipine 5 mg tablet 10 mg PO DAILY BP 03/05/20 1 02:00 History cholecalciferol (vitamin D3) 50 2,000 unit PO DAILY COTTRELL PPLEMENT 03/05/20 01/03/22 History mcg (2,000 unit) capsule cranberry extract-vitamin C 250 2 ea PO DAILY [facility] 03/05/20 01/03/22 History mg-60 mg capsule lisinopril 20 mg tablet 20 mg PO DAILY BP 03/05/20 1 02:00 History omeprazole 20 mg delayed 20 mg PO DAILY GERD 03/05/20 01/03/22 History release,disintegrating tablet oxybutynin chloride 5 mg tablet 5 mg PO DAILY BLADDER 03/05/20 01/03/22 History denosumab 60 mg/mL subcutaneous 60 mg subcut [id number] 09/20/22 Unknown History syringe (Prolia) premier protein 30 g PO .every other day 01/29/24 Unknown History anastrozole 1 mg tablet 1 mg PO DAILY #90 tabs 07/22 Unknown Rx ascorbic acid-ascorbate sodium tab PO DAILY 07/22/24 U nknown History (vitamin C) 500 mg chewable tablet aspirin 81 mg tablet,delayed 81 mg PO .every other day 07/22/24 Unknown History release (Adult Aspirin Regimen) diphenhydramine HCl 25 mg tablet 25 mg PO QHS PRN 07/03 04/27 Unknown History (Benadryl Allergy) Allergy/AdvReac Type Severity Reaction Status Date / Time sulfamethoxazole (From Allergy Intermediate Dizziness Verified 08/01/24 09:02 Septra) trimethoprim (From Sept) Allergy Intermediate Dizziness Verified 08/01/24 09:02 Penicillins (PCN) Allergy Swelling Verified 08/01/24 09:02 erythromycin base AdvReac Nausea Verified 08/01/24 09:02 Family History Mother Myocardial infarction Diabetes Father Myocardial infarction Diabetes Sister Colon cancer Aunt Cancer Breast Surgical History History of left mastectomy Hx of knee surgery History of lymph node biopsy (~10/2021) History of breast biopsy (~10/2021) History of History of lumpectomy of left breast History of hysterectomy Social History household members: spouse and other details: daughter and son-in-law, grandchildren housing: house Smoking Status: Never smoker alcohol intake: current alcohol intake frequency: a few times a week Alcohol type: wine what type of physical activity do you participate in: none do you feel safe at home: Yes ROS ROS ED ROS Narrative Review of systems positive for rapid heart rate, heart palpitations, chest pain or shortness of breath, no fevers or chills, no cough. Positive bilateral leg swelling left greater than right. EXAM Physical Exam Narrative Exam Narrative: Afebrile. Vital signs noted. Nontoxic-appearing. Cardiovascular examination reveals an irregularly irregular tachycardia ranging from 115 to 132 bpm. Lungsare clear to auscultation bilaterally. Abdomen is soft and nontender with normoactive bowel sounds. Positive bilateral lower extremity swelling/pedal edema noted. Left appears slightly larger than right. Neurovascular intact distally with palpable dorsalis pedis pulses bilaterally. Const Vital Signs: 10/01/24 10:18 10/01/24 10:39 10/01/24 10:42 Temperature 98.6 F Temperature Source Oral Pulse Rate 132 H 115 H Respiratory Rate 27 H 18 Respiratory Effort Normal Non-Labored Respiratory Pattern Normal Blood Pressure 119/67 Blood Pressure Mean 84 Pulse Ox 95 97 Oxygen Delivery Method Room Air Room Air 10/01/24 11:17 10/01/24 12:00 10/01/24 12:00 Temperature Temperature Source Pulse Rate 97 88 97 Respiratory Rate 18 24 H 18 Respiratory Effort Respiratory Pattern Blood Pressure 143/67 H 101/80 101/80 Blood Pressure Mean 92 87 87 Pulse Ox 96 95 96 Oxygen Delivery Method Room Air Room Air Room Air MDM MDM MDM Narrative Medical decision making narrative: Differential diagnosis includes but not limited to A-fib with RVR causing CHF versus pneumonia versus pneumothorax versus DVT of bilateral lower extremities. Highly unlikely that she has bilateral lower extremity DVTs. In review of her prior EMR is a problem list there is DVT listed previously. However, she is noton a blood thinner. EKG was obtained and interpreted by myself independently as atrial fibrillation at [address] changes. No STEMI. This is changed from her EKG in December 2021 when she was in normal sinus rhythm. I reviewed her laboratory work and she has a normal white count of 9.1 with hemoglobin stable at 10.9 whencompared to prior laboratories, platelet count 317. BUN of 28 and creatinine 1.23, glucose 86. Sodium normal at 134 with potassium normal at 4.1. Anion gapnormal at 14. BNP is elevated at 3284. Urinalysis positive for nitrites with 10-25 WBCs. There is 2+ bacteria. This was sent for culture. She is not here for dysuria so I will defer antibiotics. I discussed the patient with the electronic technologist and reviewed the preliminary report. 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 I do not feel that she needs to be anticoagulated emergently. Chest x-ray in 1 view interpreted by myself independently shows blunting of the bilateral costophrenic angles and CHF but no consolidation or pneumothorax. I reviewed the radiology report which confirms my independent interpretation. Prior outpatient records shows last echocardiogram in 2021. Given her new onsetatrial fibrillation and CHF, I do feel that she requires at least observation. Patient will be discussed with the hospitalist for consultation with cardiology as needed. I discussed patient with Dr. Mckeon who will admit the patient to the PCU in stable condition. I deferred Lasix as well secondary to a systolic blood pressure of 101 currently. History & Record Review Discussion w/independent historian: Patient and Family Lab Data Attestation: I reviewed the patient's lab results. Labs: Laboratory Results - last 24 hr 10/01/24 10/01/24 11:00 11:55 WBC 9.1 RBC 3.72 L Hgb 10.9 L Hct 34.1 L MCV 91.7 MCH 29.3 MCHC 32.0 RDW Std Deviation 51.1 H RDW Coeff of Kierra 15.5 H Plt Count 317 MPV 11.0 Immature Gran % (Auto) 0.500 Neut % (Auto) 80.9 H Lymph % (Auto) 8.3 L Milam % (Auto) 8.5 Eos % (Auto) 1.1 Baso % (Auto) 0.7 Absolute Neuts (auto) 7.4 Absolute Lymphs (auto) 0.76 L Nucleated RBC % 0 Sodium 134 Potassium 4.1 Chloride 100 Carbon Dioxide 20.6 L Anion Gap 14 BUN 28 H Creatinine 1.23 H Estim Creat Clear Calc 28.48 L Est GFR (MDRD) Non-Af 42 L BUN/Creatinine Ratio 22.9 H Glucose 86 Calcium 9.3 NT pro BNP II 3284 H Urine Color Yellow Urine Clarity Sl. Cloudy Urine pH 6.0 Ur Specific [place] 1.015 Urine Protein 30 H Urine Glucose (UA) Normal Urine Ketones Negative Urine Occult Blood 10 H Urine Nitrite Positive H Urine Bilirubin Negative Urine Urobilinogen Normal Ur Leukocyte Esterase 500 H Urine RBC 0 SEEN Urine WBC 10-25 SEEN Ur Squamous Epith Cells 0 SEEN Ur Renal Epithelial Cell 0-5 SEEN Urine Bacteria 2+ Urine Mucus 0 SEEN Radiography Chest X-Ray - ED: 1 View, Read by ED Physician, Read by Radiologist and CHF Diagnostic Testing: Clinical Impression(s) from Imaging Studies Chest X-Ray 10/01/24 10:56 IMPRESSION: Interstitial edema with blunting of both costophrenic angle suggesting associated pleural effusions. Findings suggest pulmonary vascular congestion/CHF though a diffuse inflammatory process could also cause similar findings. Follow-up recommended to ensure resolution Reading Location: [id number] Management Discussion w/another healthcare provider: Hospitalist Discharge Plan Dx/Rx/DC Orders Clinical Impression: New onset atrial fibrillation, Congestive heart failure, Atrial fibrillation with RVR, Pleural effusion, bilateral Disposition Disposition: Acute Care Hospital [facility] What to do if you have Problems For any increased pain, shortness of breath, bleeding, nausea or vomiting, chestpain, or any unexpected problems, contact your Primary Care Provider. Call [facility] ([phone]) or report to the closest Emergency Room. Call 911 if necessary. 10/01/24 1247 <Electronically signed by Renzo Ward MD> Cosigner Signature (if applicable): CC: Dr. Waqas Scott MD ~ Signed [facility] Work Phone: 1(931) 864-690207-01-2025 History and physical note Author [facility] Note Date/Time October 01, 2024 1:24p m [facility] Medical Records Department [address] [place] [address] H&P Exam - Hospitalist 10/01/24 1245 MR#: [id number] Acct: [id number] Name: NESTOR MONTES DE OCA I Rep #:[id number] : 1935 89 From: Dedrick Mckeon MD PCP: Dr. Waqas Scott MD Status:ADM I N Location: [place] [address] HPI - General General Date of Admission: 10/01/24 Date of Service: 10/01/24 Chief Complaint: Shortness of breath and bilateral lower extremity swelling HPI Narrative NESTOR MONTES DE OCA, is a 89 F who presents with shortness of breath and bilateral lower extremity swelling. Patient symptoms started a couple of days prior to her admission. She did notice increasing swelling involving both lower extremities. Patient also did experience shortness of breath with minimal activity. On the morning of her admission patient did experience left-sided chest discomfort. She did take her blood pressure and noticed her heart rate saroj around 140. She followed up with her primary care physicians later on in theday, EKG obtained did show A-fib with RVR. Patient was subsequently sent to theemergency department. Imaging studies obtained on admission did show Iinterstitial edema with blunting of both costophrenic angle suggesting associated pleural effusions. Findings suggest pulmonary vascular congestion/CHF though a diffuse inflammatory process could also cause similar findings. Patient was also found to have abnormal urinalysis and on further questioning admitted to experiencing urinary frequency and dysuria. Admitted tomonitored bed for further management [facility] Medical History Wears hearing aid Wears glasses Ambulates with cane DVT (deep venous thrombosis) Non-smoker History of echocardiogram GERD (gastroesophageal reflux disease) Constipation Arthritis Back problem Breast cancer HTN (hypertension) Home Medications ?Medication ?Instructions ?Recorded ?Last Taken ?Type amlodipine 5 mg tablet 10 mg PO DAILY BP 03/05/20 1 02:00 History cholecalciferol (vitamin D3) 50 2,000 unit PO DAILY COTTRELL PPLEMENT 03/05/20 01/03/22 History mcg (2,000 unit) capsule cranberry extract-vitamin C 250 2 ea PO DAILY URINARY HEALTH 03/05/20 01/03/22 History mg-60 mg capsule lisinopril 20 mg tablet 20 mg PO DAILY BP 03/05/20 1 02:00 History denosumab 60 mg/mL subcutaneous 60 mg subcut [id number] 09/20/22 Unknown History syringe (Prolia) premier protein 30 g PO .every other day 01/29/24 Unknown History anastrozole 1 mg tablet 1 mg PO DAILY #90 tabs 07/22 Unknown Rx ascorbic acid-ascorbate sodium 1 tab PO DAILY 07/22/24 Unknown History (vitamin C) 500 mg chewable tablet aspirin 81 mg tablet,delayed 81 mg PO .every other day 07/22/24 Unknown History release (Adult Aspirin Regimen) diphenhydramine HCl 25 mg tablet 25 mg PO QHS PRN fatou rgy symptoms 07/22/24 Unknown History (Benadryl Allergy) omeprazole 20 mg capsule,delayed 20 mg PO QHS 10/01/24 Unknown History release oxybutynin chloride 5 mg 5 mg PO DAILY 10/01/24 Unkno wn History tablet,extended release 24 hr Allergy/AdvReac Type Severity Reaction Status Date / Time sulfamethoxazole (From Allergy Intermediate Dizziness Verified 08/01/24 09:02 Septra) trimethoprim (From Septra) Allergy Intermediate Dizziness Verified 08/01/24 09:02 Penicillins (PCN) Allergy Swelling Verified 08/01/24 09:02 erythromycin base AdvReac Nausea Verified 08/01/24 09:02 Family History Mother Myocardial infarction Diabetes Father Myocardial infarction Diabetes Sister Colon cancer Aunt Cancer Breast Surgical History History of left mastectomy Hx of knee surgery History of lymph node biopsy (~10/2021) History of breast biopsy (~10/2021) History of History of lumpectomy of left breast History of hysterectomy Social History household members: spouse and other details: daughter and son-in-law, grandchildren housing: house Smoking Status: Never smoker alcohol intake: current alcohol intake frequency: a few times a week Alcohol type: wine what type of physical activity do you participate in: none do you feel safe at home: Yes ROS ROS Narrative GENERAL: denies fever, chills, night sweats, HEENT: denies headache, sinus congestion, RESPIRATORY: dshortness of breath, dyspnea on exertion CARDIAC: chest pain, palpitations, GASTROINTESTINAL: denies abdominal pain, nausea, GENITOURINARY: denies dysuria, urgency, frequency, EXTREMITY: denies swelling MUSCULOSKELETAL: denies current joint pain or tenderness NEUROLOGIC: denies focal numbness, weakness, tingling HEMATOLOGIC: denies easy bruising and/or hemorrhage INTEGUMENT: denies rashes PSYCHIATRIC: denies suicidal or homicidal ideation Vital Signs Vital Signs Vital Signs: 10/01/24 10:18 10/01/24 10:39 10/01/24 10:42 Temperature 98.6 F Temperature Source Oral Pulse Rate 132 H 115 H Respiratory Rate 27 H 18 Respiratory Effort Normal Non-Labored Respiratory Pattern Normal Blood Pressure 119/67 Blood Pressure Mean 84 Pulse Ox 95 97 Oxygen Delivery Method Room Air Room Air 10/01/24 11:17 10/01/24 12:00 10/01/24 12:00 Temperature Temperature Source Pulse Rate 97 88 97 Respiratory Rate 18 24 H 18 Respiratory Effort Respiratory Pattern Blood Pressure 143/67 H 101/80 101/80 Blood Pressure Mean 92 87 87 Pulse Ox 96 95 96 Oxygen Delivery Method Room Air Room Air Room Air Weight Weight: 74.4 kg Body Mass Index (BMI) 34.2 Physical Exam Narrative GENERAL: cooperative HEENT: Atraumatic; normocephalic EYES; Anicteric, Normal Conjunctiva NECK; supple, normal thyroid, RESPIRATORY: Diminished to auscultation CARDIOVASCULAR: Irregularly irregular GI: soft, normoactive bowel sounds, : No Renal angle tenderness; EXTREMITIES: Bilateral pedal edema with an area of erythema involving the left [place] MUSCULOSKELETAL: no muscle wasting NEURO: Awake; no lateralizing signs. SKIN: As described above PSYCH; Flat affect Results Lab / Micro Data 10/01/24 11:00 10/01/24 11:00 Labs: Laboratory Results - last 24 hr 10/01/24 11:00: WBC 9.1, RBC 3.72 L, Hgb 10.9 L, Hct 34.1 L, MCV 91.7, MCH 29.3,MCHC 32.0, RDW Std Deviation 51.1 H, RDW Coeff of Kierra 15.5 H, Plt Count 317, MPV11.0, Immature Gran % (Auto) 0.500, Neut % (Auto) 80.9 H, Lymph % (Auto) 8.3 L, Milam % (Auto) 8.5, Eos % (Auto) 1.1, Baso % (Auto) 0.7, Absolute Neuts (auto) 7.4, Absolute Lymphs (auto) 0.76 L, Nucleated RBC % 0, Sodium 134, Potassium 4.1, Chloride 100, Carbon Dioxide 20.6 L, Anion Gap 14, BUN 28 H, Creatinine 1.23 H, Estim Creat Clear Calc 28.48 L, Est GFR (MDRD) Non-Af 42 L, BUN/Creatinine Ratio 22.9 H, Glucose 86, Calcium 9.3, NT pro BNP II 3284 H 10/01/24 11:55: Urine Color Yellow, Urine Clarity Sl. Cloudy, Urine pH 6.0, Ur Specific [place] 1.015, Urine Protein 30 H, Urine Glucose (UA) Normal, Urine Ketones Negative, Urine Occult Blood 10 H, Urine Nitrite Positive H, Urine Bilirubin Negative, Urine Urobilinogen Normal, Ur Leukocyte Esterase 500 H, Urine RBC 0 SEEN, Urine WBC 10-25 SEEN, Ur Squamous Epith Cells 0 SEEN, Ur RenalEpithelial Cell 0- 5 SEEN, Urine Bacteria 2+, Urine Mucus 0 SEEN Imaging Radiology Impression Chest X-Ray 10/01/24 10:56 IMPRESSION: Interstitial edema with blunting of both costophrenic angle suggesting associated pleural effusions. Findings suggest pulmonary vascular congestion/CHF though a diffuse inflammatory process could also cause similar findings. Follow-up recommended to ensure resolution Reading Location: [id number] Assessment & Plan Assessment/Plan (1) Atrial fibrillation with RVR: (2) Congestive heart failure: (3) Acute cystitis: PLAN: Plan Patient is an 89-year-old lady presented with progressive shortness of breath, palpitation and left-sided chest discomfort. Admitted to a monitored bed for further management 1. Acute congestive heart failure ? Unspecified at this point. Admitted to a monitored bed treatment initiated with strict input and output, daily weight, low-sodium diet, fluid restriction and IV furosemide. As part of patient's management 2D echo serial cardiac enzymes ordered 2. Paroxysmal A-fib with RVR ? Patient presented with rapid ventricular response in the emergency department however at the time of admission patient heart rate was below 100. Plan will bety start Cardizem drip to be titrated to keep heart rate less than 100 if patient rapid ventricular response recurrence. As part of patient's management ordered TSH 2D echo and patient started on systemic anticoagulation with apixaban 2.5 mg p.o. twice daily 3. Acute cystitis ? Present on admission patient started on ceftriaxone urine culture sent 4. Hypertension ? Blood pressure controlled, home medications continued with dose adjustment as needed 5. Chronic kidney disease stage III ? Ordered daily BMP for follow-up 6. Anemia ? Secondary to chronic disorder monitoring H&H and transfuse if patient becomes symptomatic or hemoglobin falls below 7 7.. History of breast cancer ? Involving the left breast status postmastectomy with subsequent radiation. Patient is currently on anastrozole and has since remained in remission 8. GERD ? On PPI 9. Osteoporosis ?patient is on denosumab 10. DVT prophylaxis ? Patient started on apixaban Advance planning; did discuss with the patient and family (her daughter who wasin the room) regarding advanced directives as well as CODE STATUS. Did explain the various scenarios involved ( FULL CODE, DNR CCA, DNR CCA with no intubation,and DNR CC and what each meant) patient elected to be DNR CCA no intubation. Order was placed. Time spent on discussion 18 minutes. Charges/Coding Multi Select Codes Visit Charges Visit Charges: 08649 Init Hosp L3 Hospitalists' Procedures Procedures: 18871 Advncd Care Plan 30 Min 10/01/24 1324 <Electronically signed by Dedrick Mckeon MD> Cosigner Signature (if applicable): CC: Dr. Dedrick Mckeon MD; Dr. Waqas Scott MD~ Signed [facility] Work Phone: [phone]) 513-294007-01-2025 History and physical note [facility] Medical Records Department [address] [place] [id number] H&P Exam - Hospitalist 10/01/24 1245 MR#: [id number] Acct: [id number] Name: NESTOR MONTES DE OCA I Rep #:[id number] : 1935 89 From: Dedrick Mckeon MD PCP: Dr. Waqas Scott MD Status:ADM I N Location: [place] [address] HPI - General General Date of Admission: 10/01/24 Date of Service: 10/01/24 Chief Complaint: Shortness of breath and bilateral lower extremity swelling HPI Narrative NESTOR MONTES DE OCA, is a 89 F who presents with shortness of breath and bilateral lower extremity swelling. Patient symptoms started a couple of days prior to her admission. She did notice increasing swelling involving both lower extremities. Patient also did experience shortness of breath with minimalactivity. On the morning of her admission patient did experience left-sided chest discomfort. She did take her blood pressure and noticed her heart rate saroj around 140. She followed up with her primary care physicians later on in theday, EKG obtained did show A-fib with RVR. Patient was subsequently sent to theemergency department. Imaging studies obtained on admission did show Iinterstitial edema with blunting of both costophrenic angle suggesting associated pleural effusions. Findings suggest pulmonary vascular congestion/CHF though a diffuse inflammatory process could also cause similar findings. Patient was also found to have abnormal urinalysis and on further questioning admitted to experiencing urinary frequency and dysuria. Admitted tomonitored bed for further management PFSH Medical History Wears hearing aid Wears glasses Ambulates with cane DVT (deep venous thrombosis) Non-smoker History of echocardiogram GERD (gastroesophageal reflux disease) Constipation Arthritis Back problem Breast cancer HTN (hypertension) Home Medications ?Medication ?Instructions ?Recorded ?Last Taken ?Type amlodipine 5 mg tablet 10 mg PO DAILY BP 03/05/20 1 02:00 History cholecalciferol (vitamin D3) 50 2,000 unit PO DAILY COTTRELL PPLEMENT 03/05/20 01/03/22 History mcg (2,000 unit) capsule cranberry extract-vitamin C 250 2 ea PO DAILY URINARY HEALTH 03/05/20 01/03/22 History mg-60 mg capsule lisinopril 20 mg tablet 20 mg PO DAILY BP 03/05/20 1 02:00 History denosumab 60 mg/mL subcutaneous 60 mg subcut [id number] 09/20/22 Unknown History syringe (Prolia) premier protein 30 g PO .every other day 01/29/24 Unknown History anastrozole 1 mg tablet 1 mg PO DAILY #90 tabs 07/22 Unknown Rx ascorbic acid-ascorbate sodium 1 tab PO DAILY 07/22/24 Unknown History (vitamin C) 500 mg chewable tablet aspirin 81 mg tablet,delayed 81 mg PO .every other day 07/22/24 Unknown History release (Adult Aspirin Regimen) diphenhydramine HCl 25 mg tablet 25 mg PO QHS PRN fatuo rgy symptoms 07/22/24 Unknown History (Benadryl Allergy) omeprazole 20 mg capsule,delayed 20 mg PO QHS 10/01/24 Unknown History release oxybutynin chloride 5 mg 5 mg PO DAILY 10/01/24 Unkno wn History tablet,extended release 24 hr Allergy/AdvReac Type Severity Reaction Status Date / Time sulfamethoxazole (From Allergy Intermediate Dizziness Verified 08/01/24 09:02 ) trimethoprim (From ) Allergy Intermediate Dizziness Verified 08/01/24 09:02 Penicillins (PCN) Allergy Swelling Verified 08/01/24 09:02 erythromycin base AdvReac Nausea Verified 08/01/24 09:02 Family History Mother Myocardial infarction Diabetes Father Myocardial infarction Diabetes Sister Colon cancer Aunt Cancer Breast Surgical History History of left mastectomy Hx of knee surgery History of lymph node biopsy (~10/2021) History of breast biopsy (~10/2021) History of History of lumpectomy of left breast History of hysterectomy Social History household members: spouse and other details: daughter and son-in-law, grandchildren housing: house Smoking Status: Never smoker alcohol intake: current alcohol intake frequency: a few times a week Alcohol type: wine what type of physical activity do you participate in: none do you feel safe at home: Yes ROS ROS Narrative GENERAL: denies fever, chills, night sweats, HEENT: denies headache, sinus congestion, RESPIRATORY: dshortness of breath, dyspnea on exertion CARDIAC: chest pain, palpitations, GASTROINTESTINAL: denies abdominal pain, nausea, GENITOURINARY: denies dysuria, urgency, frequency, EXTREMITY: denies swelling MUSCULOSKELETAL: denies current joint pain or tenderness NEUROLOGIC: denies focal numbness, weakness, tingling HEMATOLOGIC: denies easy bruising and/or hemorrhage INTEGUMENT: denies rashes PSYCHIATRIC: denies suicidal or homicidal ideation Vital Signs Vital Signs Vital Signs: 10/01/24 10:18 10/01/24 10:39 10/01/24 10:42 Temperature 98.6 F Temperature Source Oral Pulse Rate 132 H 115 H Respiratory Rate 27 H 18 Respiratory Effort Normal Non-Labored Respiratory Pattern Normal Blood Pressure 119/67 Blood Pressure Mean 84 Pulse Ox 95 97 Oxygen Delivery Method Room Air Room Air 10/01/24 11:17 10/01/24 12:00 10/01/24 12:00 Temperature Temperature Source Pulse Rate 97 88 97 Respiratory Rate 18 24 H 18 Respiratory Effort Respiratory Pattern Blood Pressure 143/67 H 101/80 101/80 Blood Pressure Mean 92 87 87 Pulse Ox 96 95 96 Oxygen Delivery Method Room Air Room Air Room Air Weight Weight: 74.4 kg Body Mass Index (BMI) 34.2 Physical Exam Narrative GENERAL: cooperative HEENT: Atraumatic; normocephalic EYES; Anicteric, Normal Conjunctiva NECK; supple, normal thyroid, RESPIRATORY: Diminished to auscultation CARDIOVASCULAR: Irregularly irregular GI: soft, normoactive bowel sounds, : No Renal angle tenderness; EXTREMITIES: Bilateral pedal edema with an area of erythema involving the left [place] MUSCULOSKELETAL: no muscle wasting NEURO: Awake; no lateralizing signs. SKIN: As described above PSYCH; Flat affect Results Lab / Micro Data 10/01/24 11:00 10/01/24 11:00 Labs: Laboratory Results - last 24 hr 10/01/24 11:00: WBC 9.1, RBC 3.72 L, Hgb 10.9 L, Hct 34.1 L, MCV 91.7, MCH 29.3,MCHC 32.0, RDW Std Deviation 51.1 H, RDW Coeff of Kierra 15.5 H, Plt Count 317, MPV11.0, Immature Gran % (Auto) 0.500, Neut % (Auto) 80.9 H, Lymph % (Auto) 8.3 L, Milam % (Auto) 8.5, Eos % (Auto) 1.1, Baso % (Auto) 0.7, Absolute Neuts (auto) 7.4, Absolute Lymphs (auto) 0.76 L, Nucleated RBC % 0, Sodium 134, Potassium 4.1,Chloride 100, Carbon Dioxide 20.6 L, Anion Gap 14, BUN 28 H, Creatinine 1.23 H, Estim Creat Clear Calc 28.48 L, Est GFR (MDRD) Non-Af 42 L, BUN/Creatinine Ratio 22.9 H, Glucose 86, Calcium 9.3, NT pro BNP II 3284 H 10/01/24 11:55: Urine Color Yellow, Urine Clarity Sl. Cloudy, Urine pH 6.0, Ur Specific [place] 1.015, Urine Protein 30 H, Urine Glucose (UA) Normal, Urine Ketones Negative, Urine Occult Blood 10 H, Urine Nitrite Positive H, Urine Bilirubin Negative, Urine Urobilinogen Normal, Ur Leukocyte [id number] H, Urine RBC 0 SEEN, Urine WBC 10-25 SEEN, Ur Squamous Epith Cells 0 SEEN, Ur RenalEpithelial Cell 0-5 SEEN, Urine Bacteria 2+, Urine Mucus 0 SEEN Imaging Radiology Impression Chest X-Ray 10/01/24 10:56 IMPRESSION: Interstitial edema with blunting of both costophrenic angle suggesting associated pleural effusions. Findings suggest pulmonary vascular congestion/CHF though a diffuse inflammatory process could also cause similar findings. Follow-up recommended to ensure resolution Reading Location: [id number] Assessment & Plan Assessment/Plan (1) Atrial fibrillation with RVR: (2) Congestive heart failure: (3) Acute cystitis: PLAN: Plan Patient is an 89-year-old lady presented with progressive shortness of breath, palpitation and left-sided chest discomfort. Admitted to a monitored bed for further management 1. Acute congestive heart failure ? Unspecified at this point. Admitted to a monitored bed treatment initiated with strict input and output, daily weight, low-sodium diet, fluid restriction and IV furosemide. As part of patient's management 2D echo serial cardiac enzymes ordered 2. Paroxysmal A-fib with RVR ? Patient presented with rapid ventricular response in the emergency department however at the timeof admission patient heart rate was below 100. Plan will bety start Cardizem drip to be titrated tokeep heart rate less than 100 if patient rapid ventricular response recurrence. As part of patient's management ordered TSH 2D echo and patient started on systemic anticoagulation with apixaban 2.5 mg p.o. twice daily 3. Acute cystitis ? Present on admission patient started on ceftriaxone urine culture sent 4. Hypertension ? Blood pressure controlled, home medications continued with dose adjustment as needed 5. Chronic kidney disease stage III ? Ordered daily BMP for follow-up 6. Anemia ? Secondary to chronic disorder monitoring H&H and transfuse if patient becomes symptomatic or hemoglobin falls below 7 7.. History of breast cancer ? Involving the left breast status postmastectomy with subsequent radiation. Patient is currently on anastrozole and has since remained in remission 8. GERD ? On PPI 9. Osteoporosis ?patient is on denosumab 10. DVT prophylaxis ? Patient started on apixaban Advance planning; did discuss with the patient and family (her daughter who wasin the room) regarding advanced directives as well as CODE STATUS. Did explain the various scenarios involved ( FULL CODE, DNR CCA, DNR CCA with no intubation,and DNR CC and what each meant) patient elected to be DNR CCAno intubation. Order was placed. Time spent on discussion 18 minutes. Charges/Coding Multi Select Codes Visit Charges Visit Charges: 71034 Init Hosp L3 Hospitalists' Procedures Procedures: 94174 Advncd Care Plan 30 Min 10/01/24 1324 Cosigner Signature (if applicable): CC: Dr. Dedrick Mckeon MD; Dr. Waqas Scott MD~ Signed [facility]07-01-2025 Discharge summary [facility] Medical Records Department [address] [place] [address] Emergency Department Summary 10/01/24 MR#: [id number] Acct: [id number] Name: NESTOR MONTES DE OCA I Rep #:[id number] : 1935 89 From: Renzo Ward MD PCP: Dr. Waqas Scott MD Status:REG E R Location: ED HPI History of Present Illness Chief Complaint: Edema Narrative Narrative: 89-year-old female past medical history of hypertension presents with swelling of her bilateral lower extremities left greater than right as well as rapid heart rate that she has had for the last 2 weeks. She states that she has noticed that her heart rate has been elevated recently over the last 2weeks, ashigh as 148 bpm. Sometimes someone 130s. She had swelling of her bilateral lower extremities as well. No fevers or chills, no nausea or vomiting, no cough. She went to her primary care provider's office today and saw the nurse practitioner who noticed that she was in atrial fibrillation with RVR. This is a new diagnosis for her. She denies history of heart failure or any other problems with her heart so she states. [facility] Medical History Wears hearing aid Wears glasses Ambulates with cane DVT (deep venous thrombosis) Non-smoker History of echocardiogram GERD (gastroesophageal reflux disease) Constipation Arthritis Back problem Breast cancer HTN (hypertension) Home Medications ?Medication ?Instructions ?Recorded ?Last Taken ?Type amlodipine 5 mg tablet 10 mg PO DAILY BP 03/05/20 1 02:00 History cholecalciferol (vitamin D3) 50 2,000 unit PO DAILY COTTRELL PPLEMENT 03/05/20 01/03/22 History mcg (2,000 unit) capsule cranberry extract-vitamin C 250 2 ea PO DAILY URINARY HEALTH 03/05/20 01/03/22 History mg-60 mg capsule lisinopril 20 mg tablet 20 mg PO DAILY BP 03/05/20 1 02:00 History omeprazole 20 mg delayed 20 mg PO DAILY GERD 03/05/20 01/03/22 History release,disintegrating tablet oxybutynin chloride 5 mg tablet 5 mg PO DAILY BLADDER 03/05/20 01/03/22 History denosumab 60 mg/mL subcutaneous 60 mg subcut [id number] 09/20/22 Unknown History syringe (Prolia) premier protein 30 g PO .every other day 01/29/24 Unknown History anastrozole 1 mg tablet 1 mg PO DAILY #90 tabs 07/22 Unknown Rx ascorbic acid-ascorbate sodium tab PO DAILY 07/22/24 U nknown History (vitamin C) 500 mg chewable tablet aspirin 81 mg tablet,delayed 81 mg PO .every other day 07/22/24 Unknown History release (Adult Aspirin Regimen) diphenhydramine HCl 25 mg tablet 25 mg PO QHS PRN 07/03 04/27 Unknown History (Benadryl Allergy) Allergy/AdvReac Type Severity Reaction Status Date / Time sulfamethoxazole (From Allergy Intermediate Dizziness Verified 08/01/24 09:02 Septra) trimethoprim (From Septra) Allergy Intermediate Dizziness Verified 08/01/24 09:02 Penicillins (PCN) Allergy Swelling Verified 08/01/24 09:02 erythromycin base AdvReac Nausea Verified 08/01/24 09:02 Family History Mother Myocardial infarction Diabetes Father Myocardial infarction Diabetes Sister Colon cancer Aunt Cancer Breast Surgical History History of left mastectomy Hx of knee surgery History of lymph node biopsy (~10/2021) History of breast biopsy (~10/2021) History of History of lumpectomy of left breast History of hysterectomy Social History household members: spouse and other details: daughter and son-in-law, grandchildren housing: house Smoking Status: Never smoker alcohol intake: current alcohol intake frequency: a few times a week Alcohol type: wine what type of physical activity do you participate in: none do you feel safe at home: Yes ROS ROS ED ROS Narrative Review of systems positive for rapid heart rate, heart palpitations, chest pain or shortness of breath, no fevers or chills, no cough. Positive bilateral leg swelling left greater than right. EXAM Physical Exam Narrative Exam Narrative: Afebrile. Vital signs noted. Nontoxic-appearing. Cardiovascular examination reveals an irregularly irregular tachycardia ranging from 115 to 132 bpm. Lungsare clear to auscultation bilaterally. Abdomen is soft and nontender with normoactive bowel sounds. Positive bilateral lower extremity swelling/pedal edema noted. Left appears slightly larger than right. Neurovascular intact distally with palpable dorsalis pedis pulses bilaterally. Const Vital Signs: 10/01/24 10:18 10/01/24 10:39 10/01/24 10:42 Temperature 98.6 F Temperature Source Oral Pulse Rate 132 H 115 H Respiratory Rate 27 H 18 Respiratory Effort Normal Non-Labored Respiratory Pattern Normal Blood Pressure 119/67 Blood Pressure Mean 84 Pulse Ox 95 97 Oxygen Delivery Method Room Air Room Air 10/01/24 11:17 10/01/24 12:00 10/01/24 12:00 Temperature Temperature Source Pulse Rate 97 88 97 Respiratory Rate 18 24 H 18 Respiratory Effort Respiratory Pattern Blood Pressure 143/67 H 101/80 101/80 Blood Pressure Mean 92 87 87 Pulse Ox 96 95 96 Oxygen Delivery Method Room Air Room Air Room Air MDM MDM MDM Narrative Medical decision making narrative: Differential diagnosis includes but not limited to A-fib with RVR causing CHF versus pneumonia versus pneumothorax versus DVT of bilateral lower extremities. Highly unlikely that she has bilateral lower extremity DVTs. In review of her prior EMR is a problem list there is DVT listed previously. However, she is noton a blood thinner. EKG was obtained and interpreted by myself independently as atrial fibrillation at [address] changes. No STEMI. This is changed from her EKG in December 2021 when she was in normal sinus rhythm. I reviewed her laboratory work and she has a normal white count of 9.1 with hemoglobin stable at 10.9 whencompared to prior laboratories, platelet count 317. BUN of 28 and creatinine 1.23, glucose 86. Sodium normal at 134 with potassium normal at 4.1. Anion gapnormal at 14. BNP is elevated at 3284. Urinalysis positive for nitrites with 10-25 WBCs. There is 2+ bacteria. This was sent forculture. She is not here for dysuria so I will defer antibiotics. I discussed the patient with the electronic technologist and reviewed the preliminary report. Fabián has evidence of old DVT in the left lower extremity, there is no evidence of an acute clot in the bilateral lower extremities. I do not feel that she needs to be anticoagulated emergently. Chest x-ray in 1 view interpreted by myself independently shows blunting of the bilateral costophrenic angles and CHF but no consolidation or pneumothorax. I reviewed the radiology report which confirms my independent interpretation. Prior outpatient records shows last echocardiogram in 2021. Givenher new onsetatrial fibrillation and CHF, I do feel that she requires at least observation. Patientwill be discussed with the hospitalist for consultation with cardiology as needed. I discussed patient with Dr. Mckeon who will admit the patient to the PCU in stable condition. I deferred Lasix as well secondary to a systolic blood pressure of 101 currently. History & Record Review Discussion w/independent historian: Patient and Family Lab Data Attestation: I reviewed the patient's lab results. Labs: Laboratory Results - last 24 hr 10/01/24 10/01/24 11:00 11:55 WBC 9.1 RBC 3.72 L Hgb 10.9 L Hct 34.1 L MCV 91.7 MCH 29.3 MCHC 32.0 RDW Std Deviation 51.1 H RDW Coeff of Kierra 15.5 H Plt Count 317 MPV 11.0 Immature Gran % (Auto) 0.500 Neut % (Auto) 80.9 H Lymph % (Auto) 8.3 L Milam % (Auto) 8.5 Eos % (Auto) 1.1 Baso % (Auto) 0.7 Absolute Neuts (auto) 7.4 Absolute Lymphs (auto) 0.76 L Nucleated RBC % 0 Sodium 134 Potassium 4.1 Chloride 100 Carbon Dioxide 20.6 L Anion Gap 14 BUN 28 H Creatinine 1.23 H Estim Creat Clear Calc 28.48 L Est GFR (MDRD) Non-Af 42 L BUN/Creatinine Ratio 22.9 H Glucose 86 Calcium 9.3 NT pro BNP II 3284 H Urine Color Yellow Urine Clarity Sl. Cloudy Urine pH 6.0 Ur Specific [place] 1.015 Urine Protein 30 H Urine Glucose (UA) Normal Urine Ketones Negative Urine Occult Blood 10 H Urine Nitrite Positive H Urine Bilirubin Negative Urine Urobilinogen Normal Ur Leukocyte Esterase 500 H Urine RBC 0 SEEN Urine WBC 10-25 SEEN Ur Squamous Epith Cells 0 SEEN Ur Renal Epithelial Cell 0-5 SEEN Urine Bacteria 2+ Urine Mucus 0 SEEN Radiography Chest X-Ray - ED: 1 View, Read by ED Physician, Read by Radiologist and CHF Diagnostic Testing: Clinical Impression(s) from Imaging Studies Chest X-Ray 10/01/24 10:56 IMPRESSION: Interstitial edema with blunting of both costophrenic angle suggesting associated pleural effusions. Findings suggest pulmonary vascular congestion/CHF though a diffuse inflammatory process could also cause similar findings. Follow-up recommended to ensure resolution Reading Location: [facility] Management Discussion w/another healthcare provider: Hospitalist Discharge Plan Dx/Rx/DC Orders Clinical Impression: New onset atrial fibrillation, Congestive heart failure, Atrial fibrillation with RVR, Pleural effusion, bilateral Disposition Disposition: [facility] What to do if you have Problems For any increased pain, shortness of breath, bleeding, nausea or vomiting, chestpain, or any unexpected problems, contact your Primary Care Provider. Call [facility] ([phone]) or report tothe closest Emergency Room. Call 911 if necessary. 10/01/24 1247 Cosigner Signature (if applicable): CC: Dr. Waqas Scott MD ~ Signed [facility]07-01-2025 Radiology Diagnostic study note [facility] Imaging Services [address] [place] [address] Chest 1 View (Portable) MR#: [id number] Acct: [id number] Name: NESTOR MONTES DE OCA I Rep #: [id number] : 1935 F 89 From: Salud Chiu MD PCP: Dr. Waqas Scott MD Status: REG E R Study:Chest 1 View (Portable) Date of Exam: 10/01/24 Exam# [id number] Ordering Dr: Renzo Ward MD PROCEDURE: CHEST 1 VIEW (PORTABLE) 10/01/2024 REASON FOR EXAM: SHORTNESS OF BREATH TECHNIQUE: Frontal view of the chest. COMPARISON: 03/05/2020 FINDINGS: Hardware: EKG leads overlie the chest Heart: Cardiac and mediastinal contours are stable. Lungs: Lungs are expanded with superimposed interstitial edema and bilateral pleural effusions suggesting pulmonary vascular congestion/CHF however, this could also be seen with a diffuse inflammatory process. Please correlate with physical exam. Bones: Degenerative changes are identified within the thoracic spine. Other: Peripheral calcifications in the thoracic aorta. RAD/Chest 1 View (Portable) IMPRESSION: Interstitial edema with blunting of both costophrenic angle suggesting associated pleural effusions. Findings suggest pulmonary vascular congestion/CHF though a diffuse inflammatory process could also cause similar findings. Follow-up recommended to ensure resolution Reading Location: [id number] CC: Dr. Renzo Ward MD; Dr. 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 July 22, 2024 3:13pm Lymphedema chronic July 22 3:13pm Mass of left kidney chronic July 22, 2024 3:13pm Sebaceous cyst of left axilla acute August 01, 2024 8:42am Acute cystitis acute October 01, 2024 1:06pm Atrial fibrillation with RVR acute October 01, 2024 1:06pm Congestive heart failure acute October 01, 2024 1:06pm New onset atrial fibrillation acute October 01, 2024 1:06pm Pleural effusion, bilateral acute October 01, 2024 1:06pm [facility] Work Phone: 1(700) 484-756501-13-2025 Evaluation note* Diagnosis Onset Date Resolution Status Admit Date 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 [address] [place] [address] / REHABILITATION SERVICES DISCHARGE SUMMARY MR#: [id number] Acct: [id number] Name: NESTOR MONTES DE OCA #: [id number] : 1935 88 From: Sherry ASHLEY/MITZI Hernández Referring Dr.: Dr. Alonzo John MD Status: REG RCR Eval Date: Discharge Date: Discharge Summary D/C Summary: It has been my pleasure to treat NESTOR MONTES DE OCA under orders from Dr. Alonzo John MD, for the diagnosis of lymphedema of left UE for a total of 8 visit(s). Please see the following information for a summary of their discharge status. Overall Improvement % Improvement: 75 Objective Objective/Function: pt demo increase in skin mobilization at this time Goals Patient Goals: Regain Mobility and Learn how to Manage Lymphedema Goal: Patient will demonstrate a 20% reduction in edema by discharge: Yes Goal: Patient will demonstrate adequate knowledge of self-bandaging by the end of the first week.: Yes Goal: Patient will demonstrate adequate knowledge of self-massage by the end of the second week.: Yes Goal: Patient will demonstrate adequate knowledge of skin care and precautions by the end of the first week.: Yes Goal: Patient will demonstrate adequate knowledge of therapeutic exercises by discharge.: Yes Goal: Patient will select an appropriate compression garment and demonstrate adequate knowledge of correct donning technique, care and wearing schedule by discharge.: Yes Goal: Patient will voice understanding of need to replace compression garment every four to six months by discharge.: Yes Goal: Patient will demonstrate ROM WFL by discharge.: Yes Plan Plan: Will d/c at this time D/C Information d/c sentence: If there are questions or concerns regarding this patient's occupational therapy, please fell free to call me at [phone]. Thank you for the referral of this patient. Sincerely, Sherry Olivera OTR/Edgar, CHT <Electronically signed by Sherry ASHLEY/MITZI Hernández> 02/10/23 1046 CC: Dr. Alonzo John MD; Dr. Waqas Scott MD ~ MK Signed [facility] Work Phone: Evaluation noteNo assessment information available [facility] Work Phone: Evaluation note* Diagnosis Onset Date Resolution Status Abnormal ultrasound of breast acute Thickening of skin of breast acute [facility] Work Phone: Evaluation note* Diagnosis Onset Date Resolution Status Abnormal ultrasound of breast acute Thickening of skin of breast acute Axillary lymphadenopathy acu te Breast mass, left acute Thickening of skin of breast acute [facility] Work Phone: Evaluation note* Diagnosis Onset Date Resolution Status Abnormal ultrasound of breast acute Thickening of skin of breast acute Axillary lymphadenopathy acu te Breast mass, left acute Thickening of skin of breast acute 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 [facility] Work Phone: Evaluation note* Diagnosis Onset Date Resolution Status Axillary lymphadenopathy res olved Thickening of skin of breast resolved 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 Mass of left kidney acute 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 Axillary lymphadenopathy res olved S/P left mastectomy acute [facility] Work Phone: Evaluation note* Diagnosis Onset Date Resolution Status 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 Mass of left kidney acute 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 Axillary lymphadenopathy res olved S/P left mastectomy acute 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 S/P left mastectomy acute 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 S/P left mastectomy acute 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 Mass of left kidney acute 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 S/P left mastectomy acute [facility] Work Phone: Evaluation note* Diagnosis Onset Date Resolution Status 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 Lymphedema acute 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 left kidney chronic 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 Lymphedema acute Osteopenia after menopause a cute 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 left kidney chronic [facility] Work Phone: Evaluation note* Diagnosis Onset Date Resolution Status Lymphedema acute Osteopenia after menopause a cute 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 left kidney chronic 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 [facility] Work Phone: Summary Purpose Family History Relationship Condition Age at Onset Recorded Date/T clarke mother Myocardial infarction Unknown father Myocardial infarction Unknown Relationship Condition Age at Onset Recorded Date/T clarke mother Myocardial infarction Unknown Diabetes mellitus Unknown father Myocardial infarction Unknown sister Malignant neoplasm of colon Unknown Relationship Condition Age at Onset Recorded Date/T clarke mother Myocardial infarction Unknown Diabetes mellitus Unknown father Myocardial infarction Unknown sister Malignant neoplasm of colon Unknown aunt Malignant neoplasm Unknown Advance Directives Advance Directive Response Recorded Date/ Time Living Will No March 05 4:05pm Power of Community Service Worker No March 05, 2020 4:05pm Advance Directive Response Recorded Date/ Time Living Will No October 11, 2021 5:00pm Power of Community Service Worker No October 11 5:00pm Advance Directive Response Recorded Date/ Time Living Will No January 04 11:52am Power of Community Service Worker No January 04 11:52am Advance Directive Response Recorded Date/ Time Living Will No January 04 2 10:52am Power of Community Service Worker No January 04 10:52am Advance Directive Response Recorded Date/ Time Living Will No January 04 2 11:52am Do you have a Healthcare Power of Community Service Worker? No January 04, 2022 11:52am Advance Directive Response Recorded Date/ Time Living Will No January 04 11:52am Do you have a Healthcare Pow er of Community Service Worker? No January 04, 2022 11:52am Do you have a Healthcare Pow er of Community Service Worker? Yes October 01, 2024 10:42am Name of Medical Power of Community Service Worker daughter cassius urbano October 01, 2024 10:42am Chief Complaint and Reason for Visit Chief Complaint SKIN THICKENING Chief Complaint SKIN THICKENING L BREAST BIRADS 4 Reason for Visit Abnormal ultrasound of breast Thickening of skin of breast Chief Complaint SKIN THICKENING L BREAST BIRADS 4 LT BREAST MASS Reason for Visit Abnormal ultrasound of breast Thickening of skin of breast Chief Complaint SKIN THICKENING L BREAST BIRADS 4 LT BREAST MASS L BREAST BIOPSY BREAST TISSUE (L) Reason for Visit Abnormal ultrasound of breast Thickening of skin of breast Axillary lymphadenopathy Breast mass, left Thickening of skin of breast Chief Complaint SKIN THICKENING L BREAST BIRADS 4 LT BREAST MASS L BREAST BIOPSY BREAST TISSUE (L) SUTURE REMOVAL Amb Documentation NEW-BREAST CA BREAST CANCER *IV ONLY* Reason for Visit Abnormal ultrasound of breast Thickening of skin of breast Axillary lymphadenopathy Breast mass, left Thickening of skin of breast 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 Chief Complaint SKIN THICKENING L BREAST BIRADS 4 LT BREAST MASS L BREAST BIOPSY BREAST TISSUE (L) SUTURE REMOVAL Amb Documentation NEW-BREAST CA BREAST CANCER *IV ONLY* BREAST CANCER BREAST CANCER Reason for Visit Abnormal ultrasound of breast Thickening of skin of breast Axillary lymphadenopathy Breast mass, left Thickening of skin of breast 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 Chief Complaint LT BREAST MASS L BREAST BIOPSY BREAST TISSUE (L) SUTURE REMOVAL Amb Documentation NEW-BREAST CA BREAST CANCER *IV ONLY* BREAST CANCER BREAST CANCER 2WKS LABS REVIEW CT'S/BONE SCAN/ECHO 2WKS LABS REVIEW CT'S/BONE SCAN/ECHO Discuss mastectomy, update H&P LT MASTECTOMY, AXILLARY NODE LT MASTECTOMY, AXILLARY NODE LT MASTECTOMY, AXILLARY NODE Reason for Visit Axillary lymphadenop athy Thickening of skin of breast 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 Mass of left kidney Invasive ductal carcinoma of left breast Axillary lymphadenopathy S/P left mastectomy Chief Complaint SUTURE REMOVAL Amb Documentation NEW-BREAST CA BREAST CANCER *IV ONLY* BREAST CANCER BREAST CANCER 2WKS LABS REVIEW CT'S/BONE SCAN/ECHO 2WKS LABS REVIEW CT'S/BONE SCAN/ECHO Discuss mastectomy, update H&P LT MASTECTOMY, AXILLARY NODE LT MASTECTOMY, AXILLARY NODE LT MASTECTOMY, AXILLARY NODE 10/4 Left Mastectomy Axillary Node 10/4 Left Mastectomy Axillary Node NEW PATH 10/4 Left Mastectomy Axillary Node AGE RELATED OSTEOPOROSIS 10/4 Left Mastectomy Axillary Node Reason for Visit Invasive ductal carc inoma of left breast 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 Mass of left kidney Invasive ductal carcinoma of left breast Axillary lymphadenopathy S/P left mastectomy Invasive ductal carcinoma of left breast S/P left mastectomy Invasive ductal carcinoma of left breast S/P left mastectomy Invasive ductal carcinoma of left breast Mass of left kidney Invasive ductal carcinoma of left breast S/P left mastectomy Chief Complaint OTV OTV OTV final OTV F/U FROM RADIATION 4MO F/U -BREAST- 12 WKS LABS PROLIA(DENTAL CLEARANCE SCANNED) Prolia Reason for Visit Invasive ductal carc inoma of left breast 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 Lymphedema Invasive ductal carcinoma of left breast Mass of left kidney Invasive ductal carcinoma of left breast Lymphedema 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 Mass of left kidney Chief Complaint 12 WKS LABS PROLIA(D ENTAL CLEARANCE SCANNED) LYMPHEDEMA RX HERE LEFT HIP, LOWER LUMBAR STRAIN- pain 4 month f/u breast Prolia Reason for Visit Lymphedema 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 Mass of left kidney Invasive ductal carcinoma of left breast Chief Complaint 12 WKS LABS PROLIA(D ENTAL CLEARANCE SCANNED) LEFT HIP, LOWER LUMBAR STRAIN- pain 4 month f/u breast Prolia BREAST CA, SCREENING LYMPHEDEMA RX HERE Reason for Visit Lymphedema 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 Mass of left kidney Invasive ductal carcinoma of left breast Chief Complaint BREAST CA, SCREENING LYMPHEDEMA RX HERE 4 month f/u breast Reason for Visit Invasive ductal carc inoma of left breast Chief Complaint LYMPHEDEMA RX HERE 4 month f/u breast 6MO LABS PROLIA Prolia Reason for Visit Invasive ductal carc inoma of left breast Lymphedema Invasive ductal carcinoma of left breast Mass of left kidney Osteopenia after menopause Chief Complaint 4 MONTH F/U BREAST Reason for Visit Invasive ductal carc inoma of left breast Chief Complaint Admit Date 6 MONTH F/U BREAST April 15, 2024 9 :31am Reason for Visit Admit Date Invasive ductal carcinoma of left breast April 15, 2024 9:31am Chief Complaint Admit Date 6MO LABS July 22, 2024 3:1 3pm Prolia July 22, 2024 3:1 5pm LUMP L ARMPIT August 01, 2024 8:42am AFIB W/ RVR, CHF October 01, 2024 1:06p m Reason for Visit Admit Date Numbness and tingling in left hand July 22, 2024 3:13pm Skin nodule July 22, 2024 3:1 3pm Invasive ductal carcinoma of left breast July 22, 2024 3:13pm Lymphedema July 22, 2024 3:1 3pm Mass of left kidney July 22, 2024 3:1 3pm Sebaceous cyst of left axilla August 01 8:42am Acute cystitis October 01, 2024 1:06p m Atrial fibrillation with RVR October 01 1:06pm Congestive heart failure October 01, 2024 1:06pm New onset atrial fibrillation October 01, 2024 1:06pm Pleural effusion, bilateral October 01 1:06pm Additional Source Comments INFORMATION SOURCE (unrecogn ized section and content) DATE CREATED AUTHOR 09/27/2017 [facility] DATE CREATED AUTHOR AUTHOR'S ORGANIZ ATION 08/16/2024 [facility] Source Comments (unrecognize d section and content) In the event this informatio n is protected by the Federal Confidentiality of Alcohol and Drug Abuse Patient Records regulations: The Federal rules restrict any use of the information to criminally investigate or prosecute any alcohol or drug abuse patient.[facility] the event this information is protected by the Federal Confidentiality of Alcohol and Drug Abuse Patient Records regulations: The Federal rules restrict any use of the information to criminally investigate or prosecute any alcohol or drug abuse patient.[facility] Goals (unrecognized section and content) Goals may be documented in a n alternate sectionGoals may be documented in an alternate sectionGoals may be documented in an alternate sectionGoals may be documented in an alternate sectionGoals may be documented in an alternate sectionGoals may be documented in an alternate sectionGoals may be documented in an alternate sectionGoals may be documented in an alternate sectionGoals may be documented in an alternate sectionGoals may be documented in an alternate sectionGoals may be documented in an alternate sectionGoals may be documented in an alternate sectionGoals may be documented in an alternate sectionGoals may be documented in an alternate sectionGoals may be documented in an alternate sectionGoals may be documented in an alternate section Care Teams (unrecognized sec tion and content) Team Status: Active Member Role Status Dates Dr. Waqas Scott MD Family Provider Active Dr. Waqas Scott MD Primary Care Provider Active Team Status: Inactive Member Role Status Dates Dr. Waqas Scott MD Primary Care Provider Active Dr. Robinson Yepez DO Attending Provider, Referring P rovider Active Team Status: Inactive Member Role Status Dates Dr. Waqas Scott MD Primary Care Provider, Referring Provider Active Dr. Alonzo John MD Attending Provider Active Team Status: Inactive Member Role Status Dates Dr. Waqas Scott MD Primary Care Provider, Referring Provider Active Dr. Robinson Yepez DO Attending Provider Active Team Status: Active Member Role Status Dates Dr. Waqas Scott MD Primary Care Provider Active Dr. Alonzo John MD Referring Provider Active Dr. Robinson Yepez DO Attending Provider Active Team Status: Active Member Role Status Dates Dr. Waqas Scott MD Primary Care Provider Active Dr. Alonzo John MD Attending Provider, Referring Pro vider Active Team Status: Inactive Member Role Status Dates Dr. Waqas Scott MD Primary Care Provider Active Dr. Kelly Mcrae MD Attending Provider, Referring P rovider Active Team Status: Inactive Member Role Status Dates Dr. Waqas Scott MD Primary Care Provider, Attending Provider Active Team Status: Inactive Member Role Status Dates Dr. Waqas Scott MD Primary Care Provider Active Dr. Alonzo John MD Attending Provider, Referring Pro vider Active Team Status: Inactive Member Role Status Dates Dr. Waqas Scott MD Primary Care Provi crystal, Attending Provider, Referring Provider Active Team Status: Inactive Member Role Status Dates Dr. Waqas Scott MD Primary Care Provider Active Start: April 15, 2024 End: April 15, 2024 Dr. Robinson Yepez DO Attending Provider Active Start: April 15, 2024 End: April 15, 2024 Team Status: Inactive Member Role Status Dates Dr. Waqas Scott MD Primary Care Provider Active Start: July 15, 2024 End: July 15, 2024 Dr. Waqas Scott MD Attending Provider Active Start: July 15, 2024 End: July 15, 2024 Dr. Waqas Scott MD Referring Provider Active Start: July 15, 2024 End: July 15, 2024 Team Status: Active Member Role/Relationship Status Dates Dr. Waqas Scott MD Primary Care Provider Active Team Status: Inactive Member Role/Relationship Status Dates Dr. Waqas Scott MD Primary Care Provider Active Start: July 15, 2024 End: July 15, 2024 Dr. Waqas Scott MD Attending Provider Active Start: July 15, 2024 End: July 15, 2024 Dr. Waqas Scott MD Referring Provider Active Start: July 15, 2024 End: July 15, 2024 Team Status: Inactive Member Role/Relationship Status Dates Dr. Waqas Scott MD Primary Care Provider Active Start: July 22, 2024 End: July 22, 2024 Dr. Waqas Scott MD Referring Provider Active Start: July 22, 2024 End: July 22, 2024 Dr. Alonzo John MD Attending Provider Active S tart: July 22, 2024 End: July 22, 2024 Team Status: Active Member Role/Relationship Status Dates Dr. Waqas Scott MD Primary Care Provider Active Start: July 22, 2024 Dr. Alonzo John MD Referring Provider Active S tart: July 22, 2024 Dr. Robinson Yepez DO Attending Provider Active Start: July 22, 2024 Team Status: Inactive Member Role/Relationship Status Dates Dr. Waqas Scott MD Primary Care Provider Active Start: August 01, 2024 End: August 01, 2024 Dr. Waqas Scott MD Referring Provider Active Start: August 01, 2024 End: August 01, 2024 Dr. Zahida Arroyo MD Attending Provider Active Start: August 01, 2024 End: August 01, 2024 Team Status: Active Member Role/Relationship Status Dates Dr. Waqas Scott MD Primary Care Provider Active Start: October 01, 2024 Renzo Ward MD Emergency Provider Active Star t: October 01, 2024 Dr. Dedrick Mckeon MD Admit Provider Active Star t: October 01, 2024 Dr. Dedrick Mckeon MD Attending Provider Active Start: October 01, 2024 Dr. Dedrick Mckeon MD Other Provider Active Star t: October 01, 2024 FOR RECORDS PERTAINING TO PATIENTS WHO ARE OR HAVE BEEN ENROLLED IN A CHEMICAL DEPENDENCY/SUBSTANCEABUSE PROGRAM, SOME INFORMATION MAY BE OMITTED. This clinical summary was aggregated from multiple sources. Caution should be exercised in using it in the provision of clinical care. This summary normalizes information from multiple sources, and as a consequence, information in this document may materially change the coding, format and clinical context of patient data. In addition, data may be omitted in some cases. CLINICAL DECISIONS SHOULD BE BASED ON THE PRIMARY CLINICAL RECORDS. [facility] [facility]. provides no warranty or guarantee of the accuracy or completeness of information in this document.
[2024-10-02] VITALS (15 sets, daily range): BP systolic 115–133; BP diastolic 56–73; PULSE 64–98; RESP 14–18; TEMP 36.4–36.6; O2SAT 87–99; BMI 32.3
[2024-10-02] MEDS: 0.9% Saline Lock 10 ML Syringe IV ×3 (06:29→22:02)
[2024-10-02 06:49] LABS: Hematocrit 31.4 % (37-47); Hemoglobin 10.2 g/dL (12.0-15.0); Immature Granulocytes Count 0.010 X10^3/uL (0.0-0.0); Mean Corp Hgb Conc 32.5 g/dL (32-36); Mean Corpuscular Volume 90.5 fL (81-99); Mean Platelet Vol. 10.7 fl (6.2-12.0); NRBC Flagged by Analyzer 0 % (0-5); Platelet Count 296 K/mm3 (150-450); RBC Distribution Width CV 15.2 % (11.6-14.6); RBC Distribution Width SD 50.5 fl (35.1-43.9); Red Blood Count 3.47 M/mm3 (4.2-5.4); White Blood Count 6.9 K/mm3 (4.4-11.0)
--- NOTE | 2024-10-02 07:30 | PN.HOSP_ITS ---
Reason for Visit Reason for Visit: Diagnoses Unspecified atrial fibrillation (10/01/24) Heart failure, unspecified (10/01/24) Acute cystitis without hematuria (10/01/24) Subjective Subjective Patient reports having experienced significant amount of urine output. Patient I's and O measurement however not accurate. Scheduled to undergo 2D echo eval Objective Data Objective Data Vital Signs: Vital Signs Temp Pulse Resp BP Pulse Ox O2 Del Method O2 Flow Rate 97.8 F 81 18 133/73 H 97 Nasal Cannula 3 10/02/24 06:30 10/02/24 06:30 10/02/24 06:30 10/02/24 06:30 10/02/24 06:30 10/02/24 06:30 10/02/24 06:30 Oxygen Flow Rate (L/min) 3 Oxygen Delivery Method Nasal Cannula Weight: 70.3 kg Body Mass Index (BMI) 32.3 Intake & Output: Intake and Output for Last 24 Hours 09/30/24 10/01/24 10/02/24 23:59 23:59 23:59 Intake Total 650 / 650 Output Total 200 / 200 Balance 450 / 450 Lab / Micro Data 10/02/24 06:18 10/02/24 06:18 Labs: Laboratory Results - last 24 hr 10/01/24 11:00: WBC 9.1, RBC 3.72 L, Hgb 10.9 L, Hct 34.1 L, MCV 91.7, MCH 29.3, MCHC 32.0, RDW Std Deviation 51.1 H, RDW Coeff of Kierra 15.5 H, Plt Count 317, MPV 11.0, Immature Gran % (Auto) 0.500, Neut % (Auto) 80.9 H, Lymph % (Auto) 8.3 L, [place] % (Auto) 8.5, Eos % (Auto) 1.1, Baso % (Auto) 0.7, Absolute Neuts (auto) 7.4, Absolute Lymphs (auto) 0.76 L, Nucleated RBC % 0, Sodium 134, Potassium 4.1, Chloride 100, Carbon Dioxide 20.6 L, Anion Gap 14, BUN 28 H, Creatinine 1.23 H, Estim Creat Clear Calc 28.48 L, Est GFR (MDRD) Non-Af 42 L, B UN/Creatinine Ratio 22.9 H, Glucose 86, Calcium 9.3, NT pro BNP II 3284 H 10/01/24 11:55: Urine Color Yellow, Urine Clarity Sl. Cloudy, Urine pH 6.0, Ur Specific [place] 1.015, Urine Protein 30 H, Urine Glucose (UA) Normal, Urine Ketones Negative, Urine Occult Blood 10 H, Urine Nitrite Positive H, Urine Bilirubin Negative, Urine Urobilinogen Normal, Ur Leukocyte Esterase 500 H, Urine RBC 0 SEEN, Urine WBC 10-25 SEEN, Ur Squamous Epith Cells 0 SEEN, Ur Renal Epithelial Cell 0-5 SEEN, Urine Bacteria 2+, Urine Mucus 0 SEEN 10/01/24 16:37: TSH 2.310 10/02/24 06:18: WBC 6.9, RBC 3.47 L, Hgb 10.2 L, Hct 31.4 L, MCV 90.5, MCH 29.4, MCHC 32.5, RDW Std Deviation 50.5 H, RDW Coeff of Kierra 15.2 H, Plt Count 296, MPV 10.7, Immature Gran % (Auto) 0.100, Neut % (Auto) 73.6 H, Lymph % (Auto) 11.2 L, [place] % (Auto) 10.2 H, Eos % (Auto) 4.2, Baso % (Auto) 0.7, Absolute Neuts (auto) 5.1, Absolute Lymphs (auto) 0.77 L, Nucleated RBC % 0 Radiography Diagnostic Testing: Radiology Impression Chest X-Ray 10/01/24 10:56 IMPRESSION: Interstitial edema with blunting of both costophrenic angle suggesting associated pleural effusions. Findings suggest pulmonary vascular congestion/CHF though a diffuse inflammatory process could also cause similar findings. Follow-up recommended to ensure resolution Reading Location: [id number] Venous Doppler Study 10/01/24 10:56 Interpretation Summary Chronic deep vein thrombosis noted in the left common femoral vein. Deep veins of the right lower extremity are patent and compressible segmentally. There is no evidence of right lower extremity deep vein thrombosis. The bilateral great saphenous veins appear patent and compressible segmentally. Ordering Physician: Renzo Ward Referring Physician: Waqas Palma Performed By: Nola Sol RVT Physical Exam Narrative GENERAL: cooperative HEENT: Atraumatic; normocephalic EYES; Anicteric, Normal Conjunctiva NECK; supple, normal thyroid, RESPIRATORY: Diminished to auscultation CARDIOVASCULAR: Irregularly irregular GI: soft, normoactive bowel sounds, : No Renal angle tenderness; EXTREMITIES: Bilateral pedal edema with an area of erythema involving the left [place] MUSCULOSKELETAL: no muscle wasting NEURO: Awake; no lateralizing signs. SKIN: As described above PSYCH; Flat affect Assessment & Plan Assessment/Plan (1) Atrial fibrillation with RVR: (2) Congestive heart failure: (3) Acute cystitis: PLAN: Plan Patient is an 89-year-old lady presented with progressive shortness of breath, palpitation and left-sided chest discomfort. Admitted to a monitored bed for further management 1. Acute congestive heart failure ? Unspecified at this point. Admitted to a monitored bed treatment initiated with strict input and output, daily weight, low-sodium diet, fluid restriction and IV furosemide. As part of patient's management 2D echo serial cardiac enzymes ordered ? 10/02/2024; patient 2D echo results pending. 2. Paroxysmal A-fib with RVR ? Patient presented with rapid ventricular response in the emergency department however at the time of admission patient heart rate was below 100. Plan will be to start Cardizem drip to be titrated to keep heart rate less than 100 if patient rapid ventricular response recurrence. As part of patient's management ordered TSH 2D echo and patient started on systemic anticoagulation with apixaban 2.5 mg p.o. twice daily ? 10/02/2024; patient apixaban dose was adjusted from 2.5 mg twice daily to 5 mg twice daily 3. Acute cystitis ? Present on admission patient started on ceftriaxone urine culture sent ? 10/02/2024; patient remains on ceftriaxone urine cultures pending 4. Hypertension ? Blood pressure controlled, home medications continued with dose adjustment as needed 5. Chronic kidney disease stage III ? Ordered daily BMP for follow-up 6. Anemia ? Secondary to chronic disorder monitoring H&H and transfuse if patient becomes symptomatic or hemoglobin falls below 7 7.. History of breast cancer ? Involving the left breast status postmastectomy with subsequent radiation. Patient is currently on anastrozole and has since remained in remission. With patient still complaining of left-sided pleuritic chest pain ordered CTA 8. GERD ? On PPI 9. Osteoporosis ?patient is on denosumab 10. DVT prophylaxis ? Patient started on apixaban Time spent in the patient's overall evaluation,decision-making process, review of diagnostic data, adjustment of management, discussion with other providers, nursing nursing and ancillary staff involved in patient's care documentation, 36 minutes Charges/Coding Visit Charges Inpatient E&M: 39996 Subs Hosp L2
[2024-10-02 07:45] LABS: Anion Gap 12 (5-15); BUN 31 mg/dL (4-19); BUN/Creat Ratio 22.4 RATIO (10-20); Calcium,Total 8.8 mg/dL (7.6-11.0); Carbon Dioxide 24.3 mmol/L (21.0-32.0); Chloride 99 mmol/L (98-108); Estimated Creatinine Clearance 24.48 ml/min (50-250); Glucose 71 mg/dL (70-99); Magnesium 1.7 mg/dL (1.5-2.2); Potassium 4.0 mmol/L (3.3-5.1)
[2024-10-02] MEDS: Aspirin E.C. 81 MG Tablet PO (08:45)
[2024-10-02] MEDS: APIXABAN 5 MG TABLET PO ×2 (08:48→21:59)
--- NOTE | 2024-10-02 09:10 | EKG12_ITS ---
Test Reason : CP Blood Pressure : */* mmHG Vent. Rate : 89 BPM Atrial Rate : * BPM P-R Int : * ms QRS Dur : 82 ms QT Int : 382 ms P-R-T Axes : * 6 -43 degrees QTcB Int : 464 ms Atrial fibrillation Nonspecific ST and T wave abnormality Abnormal ECG When compared with ECG of 01-Oct-2024 11:04, MANUAL COMPARISON REQUIRED DATA IS UNCONFIRMED Confirmed by YOLANDE KINNEY, MARLI ([id number]), publication editor MARCUS VARELA ([id number]) on 10/03/2024 5:58:51 AM Referred By: GRAY Confirmed By: MARLI LANIER MD
--- NOTE | 2024-10-02 11:00 | CT_ITS ---
PROCEDURE: CTA CHEST W/WO CONTRAST 10/02/2024 REASON FOR EXAM: LEFT-SIDED PLEURITIC CHEST PAIN TECHNIQUE: CTA CHEST W/WO CONTRAST Multiplanar Sagittal and Coronal images were obtained. CONTRAST: Isovue 370 VOLUME: 100 mL One or more dose reduction techniques were used (e.g., Automated exposure control, adjustment of the mA and/or kV according to patient size, use of iterative reconstruction technique). RADIATION DOSE SUMMARY: CTDlvol: 26.58 mGy DLP: 393.76 mGycm COMPARISON: 2021 # of known CTs in the past 12 months: 0 # of known Cardiac Nuclear Medicine Studies in the past 12 months: 0 FINDINGS: No filling defects are identified within the pulmonary arteries to suspect PE. Peripheral calcifications in the thoracic aorta without aneurysm or dissection. Lung windows show diffuse interstitial edema in both lung melendez with free- flowing bilateral pleural effusions, azal-axgxzrz-huoz-right, and bibasilar atelectasis suggesting CHF. There is cardiomegaly with calcified coronary vessels. No suspicious axillary, mediastinal or perihilar adenopathy. Stable low-density nodules in the thyroid gland. The esophagus is mildly dilated proximally and fluid-filled distally suggesting there may be motility issues. There is no significant hiatal hernia. Limited cuts through the upper abdomen show diffuse fatty infiltration of the liver and atherosclerotic calcifications. Bony structures show osteopenia with an exaggerated dorsal kyphotic curvature and extensive degenerative changes. No acute fracture or suspicious osseous lesion CT/CTA Chest W/WO Contrast IMPRESSION: No demonstrated PE, or thoracic aortic aneurysm or dissection Diffuse interstitial edema in both lung melendez with free-flowing bilateral pleu ral effusions and bibasilar atelectasis consistent with CHF Cardiomegaly with calcified coronary vessels No suspicious adenopathy Degenerative bony changes Diffuse atherosclerosis Reading Location: [id number]
--- NOTE | 2024-10-02 11:45 | CASEMGMT ---
RN?CM?ASSESSMENT ? RN?CM?to room to meet with patient for initial transition planning/care coordination?assessment.?RN?CM?introduced self and role at [facility].? Pt voices understanding and consents to?assessment?at this time.? Pt resting in bed in no distress at this time.? Sae Veras, @ bedside and pt agreeable to him being present during assessment. Pt is A/O at this time and answers all questions appropriately.??PAUMA. Care providers, pharmacy, and demographics verified/updated at this time. ? Strata: 2 PCP: Dr Palma Specialists: Pt has seen Dr Garza, cardiology, in the past, but states has been several years since she has seen him. Dr John-onc. Dr Yepez-radiation onc. Preferred Pharmacy: [facility] Insurance: [employer] [facility] Prescription Benefit:?yes. LNOK: Dtr, Dipti. Pt has another daughter and a son. 2 grandsons: Ian and Sae Living Arrangements: Pt lives w/, daughter, son-in-law, and grandsonIan in split-level home w/2-3 steps to enter. Family assists her up the stairs into the home. Once in the home, there is a stair lift to go up to 2nd level. Pt mostly independent w/ADL's and she manages her own medications. Family does her laundry and assists w/other home mgnt tasks. Transportation:?family or [facility] van DME: States has the following DME:?chair lift, walk-in shower w/shower chair, grab bars, 2 walkers (one on each floor), BP machine. She used to have a pulse ox, but does not think she has one anymore. INEZ GARG recommended she get one. No home O2. Home O2 set-up process explained. Pt and GS state to use [employer] if home O2 is needed @ dc. Pt states no need for further DME at this time.? HHC/SNF: No hx of SNF. Pt has had HHC in the past and would like to use the same HHC agency as she had before and declines wanting list of other HHC options. SUPERVISOR [employer]LE [employer] MOTTLE BRITANY, Nola, made aware. ? Pt wishes to return home and states has no concerns with going home at time of discharge. CM?to follow for home oxygen needs and any further discharge planning/needs.? Pt voices no further concerns/needs at this time.? Advised pt to ask for?CM?if any further questions/concerns/needs arise.? Voices understanding. ? PLAN:??Home w/HHC. Follow for any home O2 needs. Follow for anti-coag @ dc. ? Isabel BSN?RN?CM
[2024-10-03] VITALS (7 sets, daily range): BP systolic 104–108; BP diastolic 46–69; PULSE 63–80; RESP 14–16; TEMP 36.3–37.2; O2SAT 93–98; BMI 31.6
[2024-10-03 06:27] LABS: Hematocrit 31.7 % (37-47); Hemoglobin 10.4 g/dL (12.0-15.0); Immature Granulocytes Count 0.020 X10^3/uL (0.0-0.0); Mean Corp Hgb Conc 32.8 g/dL (32-36); Mean Corpuscular Volume 89.5 fL (81-99); Mean Platelet Vol. 10.8 fl (6.2-12.0); NRBC Flagged by Analyzer 0 % (0-5); Platelet Count 292 K/mm3 (150-450); RBC Distribution Width CV 14.9 % (11.6-14.6); RBC Distribution Width SD 49.0 fl (35.1-43.9); Red Blood Count 3.54 M/mm3 (4.2-5.4); White Blood Count 6.9 K/mm3 (4.4-11.0)
[2024-10-03 06:58] LABS: Anion Gap 12 (5-15); BUN 31 mg/dL (4-19); BUN/Creat Ratio 23.8 RATIO (10-20); Calcium,Total 8.7 mg/dL (7.6-11.0); Carbon Dioxide 27.7 mmol/L (21.0-32.0); Chloride 96 mmol/L (98-108); Estimated Creatinine Clearance 25.67 ml/min (50-250); Glucose 73 mg/dL (70-99); Potassium 3.6 mmol/L (3.3-5.1)
[2024-10-03] MEDS: APIXABAN 5 MG TABLET PO (10:00)
[2024-10-03] MEDS: 0.9% Saline Lock 10 ML Syringe IV ×2 (10:00→13:08)
--- NOTE | 2024-10-03 10:25 | DS.PCM_ITS ---
Providers Date of Admission: 10/01/24 Date of Discharge: 10/03/24 Primary Care Physician: Dr. Waqas Palma MD Reason For Visit: AFIB W/ RVR, CHF Diagnosis Discharge Diagnosis (1) Atrial fibrillation with RVR: Status: Acute Code(s): I48.91 - Unspecified atrial fibrillation (2) Congestive heart failure: Status: Acute Code(s): I50.9 - Heart failure, unspecified (3) Acute cystitis: Status: Acute Code(s): N30.00 - Acute cystitis without hematuria Plan Patient is an 89-year-old lady presented with progressive shortness of breath, palpitation and left-sided chest discomfort. Admitted to a monitored bed for further management 1. Acute congestive heart failure preserved ejection ? Unspecified at this point. Admitted to a monitored bed treatment initiated with strict input and output, daily weight, low-sodium diet, fluid restriction and IV furosemide. As part of patient's management 2D echo serial cardiac enzymes ordered ? 10/02/2024; patient 2D echo results pending. ? 10/03/2024; patient 2D echo demonstrated estimated EF of 55 to 60%. She was also noted to have moderate mitral regurgitation and mild tricuspid regurgitation. Patient responded to diuretic therapy. A follow-up appointment was set up with cardiology on discharge 2. Paroxysmal A-fib with RVR ? Patient presented with rapid ventricular response in the emergency department however at the time of admission patient heart rate was below 100. Plan will be to start Cardizem drip to be titrated to keep heart rate less than 100 if patient rapid ventricular response recurrence. As part of patient's management ordered TSH 2D echo and patient started on systemic anticoagulation with apixaban 2.5 mg p.o. twice daily ? 10/02/2024; patient apixaban dose was adjusted from 2.5 mg twice daily to 5 mg twice daily ? Prescription was written for metoprolol and apixaban with plans for patient to follow-up with Dr. Garza as outpatient for follow-up of her heart failure 3. Acute cystitis with Citrobacter youngae ? Present on admission patient started on ceftriaxone urine culture sent ? 10/02/2024; patient remains on ceftriaxone urine cultures pending ? 10/03/2024; patient was discharged on ciprofloxacin based on culture result. Referral was placed to Dr. Duke for patient to be evaluated for her recurrent UTI 4. Hypertension ? Blood pressure controlled, home medications continued with dose adjustment as needed ? Patient was on lisinopril and amlodipine discontinued patient was started on metoprolol 5. Chronic kidney disease stage III ? Ordered daily BMP for follow-up 6. Anemia ? Secondary to chronic disorder monitoring H&H and transfuse if patient becomes symptomatic or hemoglobin falls below 7 7.. History of breast cancer ? Involving the left breast status postmastectomy with subsequent radiation. Patient is currently on anastrozole and has since remained in remission. With patient still complaining of left-sided pleuritic chest pain ordered CTA 8. GERD ? On PPI 9. Osteoporosis ?patient is on denosumab 10. DVT prophylaxis ? Patient started on apixaban Time spent in the patient's overall evaluation,decision-making process, review of diagnostic data, adjustment of management, discussion with other providers, nursing nursing and ancillary staff involved in patient's care documentation, 35 minutes Medications at Discharge Home Medications cholecalciferol (vitamin D3) 50 mcg (2,000 unit) capsule 2,000 unit PO DAILY SUPPLEMENT 03/05/20 cranberry extract-vitamin C 250 mg-60 mg capsule 2 ea PO DAILY URINARY HEALTH 03/05/20 denosumab 60 mg/mL subcutaneous syringe (Prolia) 60 mg subcut [id number] 09/20/22 premier protein 30 g PO .every other day 01/29/24 anastrozole 1 mg tablet 1 mg PO DAILY #90 tabs 07/22/24 ascorbic acid-ascorbate sodium (vitamin C) 500 mg chewable tablet 1 tab PO DAILY 07/22/24 diphenhydramine HCl 25 mg tablet (Benadryl Allergy) 25 mg PO QHS PRN allergy symptoms 07/22/24 omeprazole 20 mg capsule,delayed release 20 mg PO QHS 10/01/24 oxybutynin chloride 5 mg tablet,extended release 24 hr 5 mg PO DAILY 10/01/24 apixaban 5 mg tablet (Eliquis) 5 mg PO BID #60 tabs 10/03/24 ciprofloxacin HCl 250 mg tablet 250 mg PO BID #14 tabs 10/03/24 furosemide 40 mg tablet (Lasix) 40 mg PO DAILY #30 tabs 10/03/24 metoprolol tartrate 25 mg tablet 12.5 mg (1/2 x 25 mg) PO BID 30 days #30 tabs 10/03/24 potassium chloride 20 mEq tablet,extended release(part/cryst) 20 meq PO DAILY #30 tabs 10/03/24 Physical Exam Narrative GENERAL: cooperative HEENT: Atraumatic; normocephalic EYES; Anicteric, Normal Conjunctiva NECK; supple, normal thyroid, RESPIRATORY: Diminished to auscultation CARDIOVASCULAR: Irregularly irregular GI: soft, normoactive bowel sounds, : No Renal angle tenderness; MUSCULOSKELETAL: no muscle wasting NEURO: Awake; no lateralizing signs. SKIN: As described above PSYCH; Flat affect Weight / BMI Weight Weight: 68.7 kg Body Mass Index (BMI) 31.6 ABG / Lab / Microbiology Data 10/03/24 06:00 10/03/24 06:00 Laboratory: Laboratory Results - last 24 hr 10/03/24 06:00: WBC 6.9, RBC 3.54 L, Hgb 10.4 L, Hct 31.7 L, MCV 89.5, MCH 29.4, MCHC 32.8, RDW Std Deviation 49.0 H, RDW Coeff of Kierra 14.9 H, Plt Count 292, MPV 10.8, Immature Gran % (Auto) 0.300, Neut % (Auto) 73.4 H, Lymph % (Auto) 10.9 L, [place] % (Auto) 10.4 H, Eos % (Auto) 4.1, Baso % (Auto) 0.9, Absolute Neuts (auto) 5.1, Absolute Lymphs (auto) 0.75 L, Nucleated RBC % 0, Sodium 136, Potassium 3.6, Chloride 96 L, Carbon Dioxide 27.7, Anion Gap 12, BUN 31 H, Creatinine 1.31 H, Estim Creat Clear Calc 25.67 L, Est GFR (MDRD) Non-Af 39 L, BUN/Creatinine Ratio 23.8 H, Glucose 73, Calcium 8.7 Microbiology: Microbiology 10/01/24 11:55 Urine, Clean Catch Urine Culture - Final Citrobacter youngae 10/01/24 11:55 Urine, Clean Catch Urine Culture - Final Citrobacter youngae Radiography Diagnostic Testing: Radiology Impression Echocardiogram 10/01/24 15:29 Interpretation Summary The estimated ejection fraction is 55???60 %. Normal LV systolic function Moderate mitral regurgitation Mild tricuspid regurgitation. In comparison to previous echocardiogram MR is moderate. No pericardial effusion. Ordering Physician: Dedrick Mckeon Referring Physician: Waqas Palma Performed By: Earline Cosme RDCS Chest CTA 10/02/24 11:00 IMPRESSION: No demonstrated PE, or thoracic aortic aneurysm or dissection Diffuse interstitial edema in both lung melendez with free-flowing bilateral pleural effusions and bibasilar atelectasis consistent with CHF Cardiomegaly with calcified coronary vessels No suspicious adenopathy Degenerative bony changes Diffuse atherosclerosis Reading Location: [facility] D/C Instructions Discharge Diet: 8 Cup Fluid Restriction and 2000 mg Sodium Diet Discharge Activity: Return to Normal Activity Call your doctor if you observe: Fever of 101 or Higher, Shortness of breath, Fainting spells and Chest pain DC O2, CPAP, BIPAP Needs Home O2 Discharge instructions: No Meaningful Use Info Meaningful Use Meaningful Use Diagnoses (Choose all that apply): CHF CHF PRANEETH/ARB ordered at discharge?: Yes Documented LVEF (%): 60 Ischemic Stroke Statin Dosing Therapy Reference: STATIN DOSE THERAPY REFERENCE: * Patients > 75 years receive moderate or high dose statin therapy. * Patients 75 years or YOUNGER should receive HIGH intensity statin dose unless contraindicated. You will be required to document reason for non-treatment if statin daily dose does not meet guidelines. HIGH DOSE STATIN THERAPY DAILY Atorvastatin > than or = to 40 mg Rosuvastatin > than or = to 20 mg Amlodipine + Atorvastatin > than or = to 2.5/40 mg Ezetimibe + Simvastatin 10/80 mg Simvastatin 80mg Discharge Plan Admission Admit Date/Time: 10/01/24 13:06 Attending Provider: Dedrick Mckeon Primary Care Provider: Waqas Palma Discharge Orders/Prescriptions Prescriptions: New Eliquis 5 mg Tablet 5 mg PO BID Qty: 60 0RF furosemide [Lasix] 40 mg tablet 40 mg PO DAILY Qty: 30 0RF metoprolol tartrate 25 mg Tablet 12.5 mg PO BID 30 Days Qty: 30 0RF potassium chloride 20 mEq tablet,ER particles/crystals 20 meq PO DAILY Qty: 30 0RF ciprofloxacin HCl 250 mg tablet 250 mg PO BID Qty: 14 0RF Continued Prolia 60 mg/mL syringe 60 mg subcut P2OERRRS premier protein 30 g PO .every other day diphenhydramine HCl [Benadryl Allergy] 25 mg tablet 25 mg PO QHS PRN (Reason: allergy symptoms) ascorbic acid-ascorbate sodium 500 mg tablet,chewable 1 tab PO DAILY anastrozole 1 mg tablet 1 mg PO DAILY Qty: 90 3RF cholecalciferol (vitamin D3) 50 MCG capsule 2,000 unit PO DAILY cranberry extract-vitamin C 1 EACH capsule 2 ea PO DAILY oxybutynin chloride 5 mg tablet extended release 24hr 5 mg PO DAILY omeprazole 20 mg capsule,delayed release(DR/EC) 20 mg PO QHS Discontinued aspirin [Adult Aspirin Regimen] 81 mg tablet,delayed release (DR/EC) 81 mg PO .every other day lisinopril 20 MG tablet 20 mg PO DAILY amlodipine 5 MG tablet 10 mg PO DAILY Referrals / Follow Up: Waqas Palma MD [Primary Care Provider] - Within 1 Week Luis Fernando Garza MD [Med Staff - Active Staff] - Within 2 Weeks (Congestive heart failure, new onset A-fib) Goldie Duke MD [Med Staff - Active Staff] - Within 2 Weeks (Recurrent UTI) Disposition Disposition (needs filled in before D/C Order can be placed): Home, Self Care Charges/Coding Visit Charges Inpatient E&M: 56551 Disch Hosp >30min
--- NOTE | 2024-10-03 11:25 | CASEMGMT ---
Addendum entered by Nola Lang 10/03/24 13:55: INEZ GARG received call back from [facility] and they are able to accept patient with planned start of care for Monday. Patient is discharging on Eliquis, INEZ GARG called [facility], copay is $111, saving card applied. RN CM in to updated patient and daughter regarding discharge plans including [facility] and Eliquis copay and savings card. Daughter voiced understanding and is agreeable to plan. Patient and daughter had no further questions or concerns. RN CM updated discharge plan. Original Note: Per CM assessment patient is requesting HHC through previous provider. Patient was setup with [facility] in the past. INEZ GARG made referral to [facility], awaiting acceptance.
--- NOTE | 2024-10-03 15:02 | CHAPLAIN ---
Type of Pastoral Visit _x__ Initial Visit ___ Follow-up Visit ___ On-call Visit ___ General Patient Visit ___ Spiritual Assessment ___ Family Conference ___ Bereavement ___ Rapid Response ___ Code Blue ___ Other (describe below) Pastoral Care Referral From _x__ Patient ___ Family ___ Nurse ___ Physician ___ Relay Tester Helper ___ Laundry Helper ___ Other (describe below) Sacrament/Intervention _x__ Active listening ___ Anointing ___ Restorationism ___ Bereavement ___ Communion ___ Rosa M exploration ___ _x__ Life review _x__ Prayer ___ Reconciliation ___ Sacrament of Sick _x__ Supportive presence ___ Wedding ___ Other (describe below) Pastoral Comments patient is welcoming and has just finished her lunch; pt is able to state her situation at home and how much help she receives from family; pt has concerns about how she will manage in the future, if therapies will still be needed; pt is Buddhist and has had visits from the telegraphic typewriter operator and parish which she appreciates; prayer given
== END 2024-10-03 15:48 | disposition home health service (06) | DRG 291 ==
LOC: ED 12:40 → PCU 13:07
PROVIDERS: Admitting Provider Internal Medicine; Emergency Provider Emergency Medicine; PCP Family Medicine; Visit Provider Internal Medicine
DX: I13.0 Hypertensive heart and chronic kidney disease with heart failure and stage 1 through stage 4 chronic kidney disease, or unspecified chronic kidney disease (principal); I50.31 Acute diastolic (congestive) heart failure; N30.00 Acute cystitis without hematuria; D63.1 Anemia in chronic kidney disease; N18.30 Chronic kidney disease, stage 3 unspecified; I48.0 Paroxysmal atrial fibrillation; K21.9 Gastro-esophageal reflux disease without esophagitis; B96.89 Other specified bacterial agents as the cause of diseases classified elsewhere; Z90.710 Acquired absence of both cervix and uterus; Z79.82 Long term (current) use of aspirin; M81.0 Age-related osteoporosis without current pathological fracture; Z79.899 Other long term (current) drug therapy; Z85.3 Personal history of malignant neoplasm of breast; Z90.12 Acquired absence of left breast and nipple
CPT/HCPCS: 36415; 71045; 71275; 80048; 81001; 83735; 83880; 84100; 84443; 85025; 87077; 87086; 87088; 87186; 93005; 93306; 93970; 94668; 99252; 99285; Q9967; A4216; G0463; J1938

== ENCOUNTER → 2024-11-28 | Outpatient (CLI) | payer MEDICARE, SELFPAY ==
--- NOTE | 2024-11-28 12:27 | BI_ITS ---
EXAM: SCREEN MAMM (CAD) W/LISANDRO UNI R DATE: 11/28/2024 CLINICAL HISTORY: F, Age 89 y/o , ANNUAL EXAM TECHNIQUE: SCREEN MAMM (CAD) W/LISANDRO UNI R COMPARISON: Prior exam(s) were compared FINDINGS: TISSUE DENSITY: The breasts are heterogeneously dense, which may obscure small masses. Unilateral Right Breast Mammographic Findings: No suspicious masses, calcifications or other abnormalities are identified. BI/SCREEN MAMM (CAD) W/LISANDRO UNI R IMPRESSION: No mammographic evidence of malignancy OVERALL FINAL ASSESSMENT BI-RADS 1: NEGATIVE. RECOMMENDATION: Routine annual follow-up in 1 Year A letter with findings and recommendations will be mailed to the patient. Reading Location: [id number]
[2024-11-28 14:00] LABS: Anion Gap 12 (5-15); BUN 36 mg/dL (4-19); BUN/Creat Ratio 29.0 RATIO (10-20); Calcium,Total 9.6 mg/dL (7.6-11.0); Carbon Dioxide 26.6 mmol/L (21.0-32.0); Chloride 100 mmol/L (98-108); Glucose 107 mg/dL (70-99); Potassium 4.4 mmol/L (3.3-5.1)
[2024-11-28 21:27] LABS: Xtra Tube EP Lab EXTRA TUBE
== END | disposition home or self-care (01) ==
PROVIDERS: PCP Family Medicine; Referring Provider Student in an Organized Health Care Education/Training Program; Visit Provider Student in an Organized Health Care Education/Training Program
DX: Z12.31 Encounter for screening mammogram for malignant neoplasm of breast (principal); Z85.3 Personal history of malignant neoplasm of breast; I10 Essential (primary) hypertension
CPT/HCPCS: 36415; 77063; 77067; 80048

== ENCOUNTER → 2025-01-16 | Outpatient (CLI) | payer MEDICARE, SELFPAY ==
--- NOTE | 2025-01-16 07:44 | BD_ITS ---
PROCEDURE: DEXA BONE DENSITY STUDY 01/16/2025 REASON FOR EXAM: HX OF BREAST CA F, age 89 y/o . Postmenopausal. TECHNIQUE: Procedure Code: BDDBD Modality: DX Procedure: DEXA BONE DENSITY STUDY COMPARISON: January 27, 2022. FINDINGS: BMD and T-SCORES Lumbar spine: 1.240 g/cm2, T-score 1.3 Levels: L1 through L4 Change from prior: Loss of 3.1%. Left femoral neck: 0.506 g/cm2, T-score -3.1 Femoral neck comparison data not recommended for monitoring change. Left total hip: 0.646 g/cm2, T-score -2.4 Change from prior: Loss of 20%. Right femoral neck: 0.691 g/cm2, T-score -1.4 Femoral neck comparison data not recommended for monitoring change. Right total hip: 0.668 g/cm2, T-score -2.2 Change from prior: Loss of 17.4%. The World Health Organization has defined the following categories based on bone density: Normal bone density: T-score equal to or greater than -1.0 Osteopenia: T-score between -1.0 and -2.5 Osteoporosis: T-score equal to or less than -2.5 FRAX (or Comparable) Fracture Risk Assessment: 10 Year Probability of Fracture: Major Osteoporotic Fracture: 24% Hip Fracture: 8.6% (Note: FRAX is not to be reported in setting of normal range bone density, osteoporosis on DEXA, known history of osteoporosis, prior osteoporotic hip or vertebral fracture, or for any patient undergoing pharmacological treatment for bone loss.) The National Osteoporosis Foundation (NOF) recommends pharmacological treatment for patients with a FRAX 10-year risk of 3% or higher for a hip fracture, or 20% or higher for a major osteoporotic fracture, to prevent osteoporosis and reduce fracture risk. The patient does meet the pharmacological treatment recommendations for prevention of osteoporosis. BD/Dexa Bone Density Study IMPRESSION: OSTEOPOROSIS. Recommend follow-up as clinically warranted. Reading Location: [place] [id number]
--- OUTSIDE RECORDS SUMMARY | 2025-01-16 07:57 | XMS RPT_ITS | CCD ---
Author Organization [facility] Care Team Providers Care Oracle Fusion Middleware Developer Name Role Phone Unavailable Primary Care Provider Unavailjanay e Dr. Waqas Scott Primary Care Provider Dr. Waqas Scott Referring Provider Dr. Zahida Arroyo Attending Provider Lucy Martinez Attending Provider Unavailable Dr. Alonzo John Attending Provider Dr. Waqas Skelton Attending Provider Dr. Waqas Scott Primary Care Provider Dr. Waqas Scott Referring Provider Dr. Zahida Arroyo Attending Provider Dr. Zahida Arroyo Referring Provider Dr. Zahida Arroyo Other Provider Cruz, Dr. Teague Admit Provider Dr. Waqas Scott Primary Care Provider Dr. Waqas Scott Referring Provider Dr. Zahida Arroyo Attending Provider Dr. Waqas Scott Primary Care Provider Dr. Robinson Yepez Attending Provider Dr. Robinson Yepez Referring Provider Dr. Waqas Scott Referring Provider Dr. Alonzo John Attending Provider Dr. Waqas Scott Primary Care Provider Dr. Waqas Scott Referring Provider Prah, Dr. Rosado Attending Provider Marleni, Dr. Bowers Attending Provider Louie, Dr. Alan Primary Care Provider Louie, Dr. Alan Referring Provider Marleni, Dr. Bowers Attending Provider Louie, Dr. Alan Primary Care Provider Louie, Dr. Alan Referring Provider Marleni, Dr. Bowers Attending Provider [facility], Dr. Rosado Attending Provider Louie, Dr. Alan Primary Care Provider Louie, Dr. Alan Referring Provider [place], Dr. Bowers Attending Provider Louie KINNEY, Dr. Alan Primary Care Provider Marleni DO, Dr. Bowers Attending Provider Louie KINNEY, Dr. Alan Attending Provider Louie KINNEY, Dr. Alan Referring Provider Louie KINNEY, Dr. Alan Primary Care Provider Alvaro KINNEY, Dr. Rosado Attending Provider Alvaro KINNEY, Dr. Rosado Referring Provider Marleni SHARMA, Dr. Bowers Attending Provider Cruz KINNEY, Dr. Teague Attending Provider Sylvia KINNEY, Renzo Emergency Provider Mike KINNEY, Dr. Tse Admit Provider Unavailable Mike KINNEY, Dr. Tse Attending Provider Unavailrhett De Jesus MD, Dr. Agarwal Attending Provider Nelson KINNEY, Dr. Isabel Attending Provider Mike KINNEY, Dr. Tse Other Provider Unavailable Sylvia KINNEY, Renzo Referring Provider Kayla KINNEY, Dr. Gould Attending Provider Louie KINNEY, Dr. Alan Primary Care Provider [phone] Louie KINNEY, Dr. Alan Referring Provider Louie KINNEY, Dr. Alan Primary Care Provider Louie KINNEY, Dr. Alan Referring Provider [phone] Marleni SHARMA, Dr. Bowers Attending Provider Marleni SHARMA, Dr. Bowers Referring Provider Waqas Scott Attending Unavailable Scott, Waqas Primary Care Unavailable Sctot, Waqas Attending Unavailable Scott, Waqas Primary Care Unavailable Scott, Waqas Referring Unavailable Kittoe, Dedrick Admitting Unavailable Kittoe, Dedrick Attending Unavailable Scott, Waqas Primary Care Unavailable Kittoe, Dedrick Admitting Unavailable Kittoe, Dedrick Attending Unavailable Kittoe, Dedrick Consulting Unavailable Scott, Waqas Primary Care Unavailable Scott, Waqas Primary Care Unavailable Prah, Alonzo Attending Unavailable Scott, Waqas Referring Unavailable Scott, Waqas Referring Unavailable Scott, Waqas Primary Care Unavailable Prah, Alonzo Attending Unavailable Scott, Waqas Referring Unavailable Robotham, Zahida Attending Unavailable Scott, Waqas Primary Care Unavailable Marleni, Robinson Attending Unavailable Scott, Waqas Primary Care Unavailable Scott, Waqas Referring Unavailable Scott, Waqas Primary Care Unavailable Kayla, Luis Fernando Attending Unavailable Scott, Waqas Referring Unavailable Prah, Alonzo Attending Unavailable Scott, Waqas Primary Care Unavailable Reodica, Renzo Referring Unavailable Truxton, Bruce Attending Unavailable Scott, Waqas Primary Care Unavailable Belal, Maame Attending Unavailable Scott, Waqas Primary Care Unavailable Marleni, Robinson Attending Unavailable Scott, Waqas Primary Care Unavailable Prah, Alonzo Referring Unavailable Marleni, Robinson Referring Unavailable Marleni, Robinson Attending Unavailable Scott, Waqas Primary Care Unavailable Allergies Allergy Classification Reported Allergen(s) Allergy Type Date of Onset Reaction(s) Facility (20 sources) Penicillins; Translations: [Penicillins] Drug Intolerance 03-13-20 12 Swelling [facility] (20 sources) Erythromycin Drug Allergy 03-18-20 20 Nausea [facility] (20 sources) Sulfamethoxazole Drug Allergy 08-28-19 22 Dizziness [facility] (20 sources) Trimethoprim Drug Allergy 08-28-19 22 [facility] (1 source) Erythromycin Drug Allergy 01-14-20 25 [facility] (1 source) Sulfamethoxazole Drug Allergy 01-14-20 [facility] (1 source) Trimethoprim Drug Allergy 01-14-20 [facility] Medications Current Medications Medication Drug Class(es) Dates Sig (Normalized) Sig (Original) apixaban 5 mg oral tablet (7 sources) Factor Xa Inhibitor Start: 10-03-2024 End: 10-30-2024 take 1 tablet by mouth twice daily Apixaban (Eliquis) 5 mg tablet Active 5 mg PO TWICE A DAY 60 11 October 30, 2024 1:49pm cholecalciferol 0.05 mg oral capsule (20 sources) Vitamin D Start: 03-05-2020 Cholecalciferol (Vitamin D3) 50 MCG capsule Active 2000 U PO DAILY March 05, 2020 1:00am SUPPLEMENT Start: 03-05-2020 take 2000 [IU] by mo uth once daily Cholecalciferol (Vitamin D3) Active 2000 [...] 1:00am Cranberry Extract-Vitamin C 1 EACH capsule (6 sources) Start: 03-05-2020 Cranberry Extr act-Vitamin C 1 EACH capsule Active 2 NMA PO DAILY March 05, 2020 1:00am [facility] Start: 03-05-2020 Cranberry Extr act-Vitamin C 1 EACH capsule Active 2 NMA PO DAILY March 05, 2020 1:00am diphenhydrAMINE hydrochloride 25 mg oral tablet (5 sources) Histamine-1 Receptor Antagonist Start: 07-22-2024 take 1 tablet by mouth at bedtime as needed Diphenhydramine Hcl (Benadryl Allergy) 25 mg tablet Active 25 mg PO AT BEDTIME as needed for allergy symptoms July 22, 2024 12:00am furosemide 40 mg oral tablet (4 sources) Loop Diuretic Start: 10-03-2024 take 1 tablet by mouth once daily Furosemide (Lasix) 40 mg tablet Active 40 mg PO DAILY 30 0 October 03, 2024 12:00am metoprolol tartrate 50 mg oral tablet (10 sources) beta-Adrenergic Danya Start: 10-30-2024 take 1 tablet by mouth twice daily Metoprolol Tartrate 50 mg tablet Active 50 mg PO TWICE A DAY October 30, 2024 12:00am Start: 10-08-2024 End: 10-30-2024 take 1 tablet by mouth twice daily Metoprolol Tartrate 25 mg tablet Discontinued 25 mg PO TWICE A DAY 60 11 October 08, 2024 3:23pm October 30, 2024 1:28pm Start: 10-03-2024 End: 10-08-2024 Metoprolol Tartrate 25 mg Ta blet Discontinued 12.5 mg PO TWICE A DAY 30 30 0 October 03, 2024 12:00am October 08, 2024 3:23pm Dlsaqqtc-Qxc-Kjyl-Fa-Vit K-Lut (Centrum Silver Women) 8 mg iron-400 mcg-50 mcg tablet (3 sources) Start: 10-30-2024 take 1 tablet by mouth once daily Evekmfjz-Kqn-Wljo-Fa-Vit K-Lut (Centrum Silver Women) 8 mg iron-400 mcg-50 mcg tablet Active 1 {tbl} PO daily October 30, 2024 12:00am omeprazole 20 mg delayed release oral capsule (20 sources) Proton Pump Inhibitor Start: 10-01-2024 take [...] chloride 5 mg extended release oral tablet (20 sources) Cholinergic Muscarinic Antagonist Start: 10-01-2024 take 1 tablet by mouth once daily Oxybutynin Chloride 5 mg tablet extended release 24hr Active 5 mg PO DAILY October 01, 2024 12:00am Start: 03-05-2020 End: 10-01-2024 take 1 tablet by mouth once daily Oxybutynin Chloride 5 MG tablet Discontinued 5 mg PO DAILY March 05, 2020 1:00am October 01, 2024 12:59pm BLADDER microencapsulated potassium chloride 20 meq extended release oral tablet (5 sources) Start: 10-03-2024 End: 11-26-2024 take 1 tablet by mouth once daily Potassium Chloride 20 mEq tablet,ER particles/crystals Active 20 meq PO DAILY 90 3 November 26, 2024 2:31pm Completed/Discontinued Medications Medication Drug Class(es) Dates Sig (Normalized) Sig (Original) amLODIPine 5 mg oral tablet (20 sources) Dihydropyridine Calcium Channel Danya Start: 10-17-2024 End: 10-30-2024 take 2 tablets by mouth once daily Amlodipine 5 mg tablet Discontinued 10 mg PO daily October 17, 2024 12:00am October 30, 2024 1:28pm Start: 03-05-2020 End: 10-03-2024 take 2 tablets by mouth once daily Amlodipine 5 MG tablet Discontinued 10 mg PO DAILY March 05, 2020 1:00am October 03, 2024 10:32am BP Start: 03-05-2020 take 10 mg by mouth once daily Amlodipine Active 10 MG PO DAILY March 05, 2020 1:00am anastrozole 1 mg oral tablet (20 sources) Aromatase Inhibitor Start: 05-05-2022 End: 07-22-2024 take 1 tablet by mouth once daily Anastrozole 1 mg tablet Discontinued 1 mg PO DAILY 90 3 August 25, 2023 11:25am July 22, 2024 4:50pm Ascorbic Acid-Ascorbate Sodium 500 mg tablet,chewable (5 sources) Start: 07-22-2024 End: 10-30-2024 Ascorbic Acid-Ascorbate Sodium 500 mg tablet,chewable Discontinued 1 {tbl} PO DAILY July 22, 2024 12:00am October 30, 2024 1:28pm Start: 07-22-2024 Ascorbic Acid- Ascorbate Sodium 500 mg tablet,chewable Active 1 {tbl} PO DAILY July 22, 2024 12:00am aspirin 81 mg delayed release oral tablet (20 sources) Platelet Aggregation Inhibitor, Nonsteroidal Anti-inflammatory Drug Start: 10-17-2024 End: 10-30-2024 take 1 tablet by mouth once daily Aspirin (Adult Aspirin Regimen) 81 mg tablet,delayed release (DR/EC) Discontinued 81 mg PO daily October 17, 2024 12:00am October 30, 2024 1:29pm Start: 07-22-2024 End: 10-03-2024 take 1 tablet by mouth every other day Aspirin (Adult Aspirin Regimen) 81 mg tablet,delayed release (DR/EC) Discontinued 81 mg PO .every other day July 22, 2024 12:00am October 03, 2024 10:31am Start: 03-05-2020 End: 07-22-2024 take 1 tablet by mouth once daily Aspirin 81 MG tablet,chewable Discontinued 81 mg PO DAILY@0800 March 05, 2020 1:00am July 22, 2024 4:12pm HEART HEALTH On Hold: Resume on 01/08/22. ciprofloxacin 250 mg oral tablet (4 sources) Quinolone Antimicrobial Start: 10-03-2024 End: 10-17-2024 take 1 tablet by mouth twice daily Ciprofloxacin Hcl 250 mg tablet Discontinued 250 mg PO TWICE A DAY 14 0 October 03, 2024 12:00am October 17, 2024 9:15am 1 ml denosumab 60 mg/ml prefilled syringe (11 sources) RANK Ligand Inhibitor Start: 09-20-2022 End: 10-30-2024 Denosumab (Prolia) 60 mg/mL syringe Discontinued 60 mg SC every 6 months September 20, 2022 12:00am October 30, 2024 1:29pm hydroCHLOROthiazide 25 mg oral tablet (20 sources) Thiazide Diuretic Start: 04-15-2024 End: 07-22-2024 Hydrochlorothiazide 25 mg tablet Discontinued 12.5 mg PO DAILY April 15, 2024 10:41am July 22, 2024 4:12pm BP Start: 03-05-2020 End: 04-15-2024 take 1 tablet by mouth once daily Hydrochlorothiazide 25 MG tablet Discontinued 25 mg PO DAILY March 05, 2020 1:00am April 15, 2024 10:41am BP lisinopril 20 mg oral tablet (20 sources) Angiotensin Converting Enzyme Inhibitor Start: 10-17-2024 End: 10-30-2024 take 1 tablet by mouth once daily Lisinopril 20 mg tablet Discontinued 20 mg PO daily October 17, 2024 12:00am October 30, 2024 1:29pm Start: 03-05-2020 End: 10-03-2024 take 1 tablet by mouth once daily Lisinopril 20 MG tablet Discontinued 20 mg PO DAILY March 05, 2020 1:00am October 03, 2024 10:31am BP meloxicam 7.5 mg oral tablet (20 sources) Nonsteroidal Anti-inflammatory Drug Start: 03-05-2020 End: 10-11-2021 take 1 tablet by mouth once daily Meloxicam 7.5 MG tablet Discontinued 7.5 mg PO DAILY March 05, 2020 1:00am October 11, 2021 3:37pm ARTHRITIS traMADol hydrochloride 50 mg oral tablet (14 sources) Opioid Agonist Start: 01-05-2022 End: 01-29-2024 take 1 tablet by mouth every six hours as needed for pain Tramadol 50 mg tablet Discontinued 50 mg PO EVERY 6 HOURS as needed for pain 10 3 0 January 05, 2022 12:00am January 29, 2024 4:06pm Postoperative pain Other acute postprocedural pain Problems Active Problems Problem Classification Problem Date Documented Date Episodic/Chronic Cancer of breast (20 sources) Malignant tumor of breast ; Translations: [Malignant neoplasm of unspecified site of unspecified female breast] Onset: 07-22-2024 Chronic Comment on above: 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 Tolerating therapy. Cancer of breast (2 sources) Personal history of malignant neoplasm of breast; Translations: [Personal history of malignant neoplasm of breast] Onset: 01-13-2025 Episodic Cardiac dysrhythmias (20 sources) Atrial fibrillation; Translations: [Unspecified atrial fibrillation] Onset: 10-08-2024 10-01-2024 Chronic Cardiac dysrhythmias (4 sources) Cardiac dysrhythmias Congestive heart failure; nonhypertensive (13 sources) Congestive heart failure; Translations: [Heart failure, unspecified] Onset: 10-08-2024 10-01-2024 Chronic Disorders of lipid metabolism (1 source) Hyperlipidemia, unspecified; Translations: [Hyperlipidemia, unspecified] Onset: 01-13-2025 Chronic Esophageal disorders (3 sources) Gastroesophageal reflux disease; Translations: [Gastro-esophageal reflux disease without esophagitis] 10-17-2024 Chronic Essential hypertension (6 sources) Hypertensive disorder; Translations: [Essential (primary) hypertension] Onset: 02-08-2024 10-17-2024 Chronic Comment on above: CONTROLLED WITH MEDS Fracture of neck of femur (hip) (20 sources) Closed fracture of femur, subcapital; Translations: [Unspecified intracapsular fracture of right femur, initial encounter for closed fracture] 03-05-2020 Episodic Genitourinary symptoms and ill-defined conditions (9 sources) Scalding pain on urination ; Translations: [Dysuria] Onset: 01-29-2024 01-29-2024 Episodic Comment on above: Has taken Cipro for 14 days. Hypertension with complications and secondary hypertension (1 source) Hypertensive heart and chronic kidney disease with heart failure and stage 1 through stage 4 chronic kidney disease, or unspecified chronic kidney disease; Translations: [Hypertensive heart and chronic kidney disease with heart failure and stage 1 through stage 4 chronic kidney disease, or unspecified chronic kidney disease] Onset: 10-09-2024 Chronic Lymphadenitis (20 sources) Axillary lymphadenopathy; Translations: [Localized enlarged lymph nodes] Episodic Comment on above: left initially seen on MRI Nonmalignant breast conditions (20 sources) Thickening of skin of breast; Translations: [Other signs and symptoms in breast] Episodic Osteoarthritis (3 sources) Arthritis; Translations: [Unspecified osteoarthritis, unspecified site] 10-17-2024 Chronic Other bone disease and musculoskeletal deformities (12 sources) Postmenopausal osteopenia; Translations: [Other specified disorders [...] cartilage, unspecified] 07-28-2022 Episodic Other circulatory disease (20 sources) H/O: hypertension; Translations: [Personal history of other diseases of the circulatory system] 03-05-2020 Episodic Other circulatory disease (1 source) Personal history of other diseases of the circulatory system; Translations: [Personal history of other diseases of the circulatory system] Onset: 01-13-2025 Episodic Other diseases of kidney and ureters (17 sources) Renal mass; Translations: [Other specified disorders of kidney and ureter] 03-07-2022 Chronic Comment on above: 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 Bennett and he suggested observation. Other diseases of kidney and ureters (10 sources) Other specified disorders of kidney and ureter; Translations: [Unspecified disorder of kidney and ureter] Onset: 01-13-2025 Chronic Other diseases of veins and lymphatics (15 sources) Lymphedema; Translations: [Lymphedema, not elsewhere classified] 03-07-2022 Chronic Comment on above: L arm improving. Due to L breast and axillary surgery, Other diseases of veins and lymphatics (6 sources) Lymphedema, not elsewhere classified; Translations: [Other lymphedema] Onset: 01-13-2025 05-05-2022 Chronic Other nervous system disorders (3 sources) Carpal tunnel syndrome of left wrist; Translations: [Carpal tunnel syndrome, left upper limb] 10-17-2024 Chronic Comment on above: per pt following wit h Dr. Arroyo currently r/t Other nervous system disorders (8 sources) Paresthesia of hand ; Translations: [Anesthesia of skin] 07-22-2024 Episodic Other screening for suspected conditions (not mental disorders or infectious disease) (20 sources) Ultrasonography of breast abnormal; Translations: [Other abnormal and inconclusive findings on diagnostic imaging of breast] Onset: 12-04-2024 Episodic Comment on above: Given a BI-RADS 4 bu t also recommended MRI Other skin disorders (11 sources) Skin nodule; Translations: [Localized swelling, mass and lump, unspecified] Episodic Comment on above: Soft cutaneous nodul e in L armpit. Other skin disorders (9 sources) Sebaceous cyst of skin; Translations: [Sebaceous cyst] 08-02-2024 Episodic Pleurisy; pneumothorax; pulmonary collapse (13 sources) Bilateral pleural effusion; Translations: [Pleural effusion, not elsewhere classified] 10-01-2024 Episodic Residual codes; unclassified (14 sources) History of left mastectomy; Translations: [Acquired absence of left breast and nipple] 01-04-2022 Episodic Comment on above: with Left ALND 2021 Residual codes; unclassified (5 sources) Acquired absence of left breast and nipple; Translations: [Acquired absence of breast and nipple] Episodic Spondylosis; intervertebral disc disorders; other back problems (1 source) Pain in thoracic spine; Translations: [Pain in thoracic spine] Onset: 01-13-2025 Episodic Unclassified (6 sources) R22.9 - Localized swelling, mass and lump, unspecified Urinary tract infections (4 sources) Urinary tract infections Past or Other Problems Problem Classification Problem Date Documented Da te Episodic/Chronic Fluid and electrolyte disorders (7 sources) Hyponatremia; Translations: [Hypo-osmolality and hyponatremia] Onset: 01-29-2024 07-31-2023 Episodic Other nervous system disorders (1 source) Anesthesia of skin; Translations: [Anesthesia of skin] Onset: 07-22-2024 Episodic Other nervous system disorders (1 source) Paresthesia of skin; Translations: [Paresthesia of skin] Onset: 07-22-2024 Episodic Other skin disorders (1 source) Localized swelling, mass and lump, unspecified; Translations: [Localized swelling, mass and lump, unspecified] Onset: 07-22-2024 Episodic Urinary tract infections (12 sources) Acute cystitis; Translations: [Acute cystitis without hematuria] Onset: 07-18-2024 10-01-2024 Episodic Results Test Name Value Interpretation Reference Range Facility CBC W/Diff, Automatedon 01-01 Absolute Lymph 0.97 X10 3/uL Normal 0.83-4.51 [facility] Comment on above: Performed By: #### L 100.0100, L500.2500 #### [facility] [address] [place], [address] Absolute Neut 5.1 X10 3/uL Normal 2.0-7.7 [facility] Comment on above: Performed By: #### L 100.0100, L500.2500 #### [facility] [address] [place], [address] Basophils/100 WBC (Bld) 0.6 % Normal 0-1 [facility] Comment on above: Performed By: #### L 100.0100, L500.2500 #### [facility] [address] [place], [address] Eosinophils/100 WBC (Bld) 1.4 % Normal 0-5 [facility] Comment on above: Performed By: #### L 100.0100, L500.2500 #### [facility] [address] [place], [address] Erythrocyte distribution width (RBC) [Ratio] 18.6 % High 11.6-14.6 [facility] Comment on above: Performed By: #### L 100.0100, L500.2500 #### [facility] [address] [place], [address] Hematocrit (Bld) [Volume fraction] 36.9 % Low 37-47 [facility] Comment on above: Performed By: #### L 100.0100, L500.2500 #### [facility] [address] [place], [address] Hemoglobin (Bld) [Mass/Vol] 11.4 g/dL Low 12.0-15.0 [facility] Comment on above: Performed By: #### L 100.0100, L500.2500 #### [facility] [address] [place], [address] IG% 0.400 Normal 0.0-0.9 [facility] Comment on above: Result Comment: IG% - Immature Granulocytes (promyelocytes, myelocytes and metamyelocytes) > 1% indicates that a LEFT SHIFT is Present. Performed By: #### L 100.0100, L500.2500 #### [facility] [address] [place], [address] Lymphocytes/100 WBC (Bld) 13.9 % Low 19-41 [facility] Comment on above: Performed By: #### L 100.0100, L500.2500 #### [facility] [address] [place], [address] MCH (RBC) [Entitic mass] 28.6 pg Normal 27.0-32.0 [facility] Comment on above: Performed By: #### L 100.0100, L500.2500 #### [facility] [address] [place], [address] MCHC (RBC) [Mass/Vol] 30.9 g/dL Low 32-36 [facility] Comment on above: Performed By: #### L 100.0100, L500.2500 #### [facility] [address] [place], [address] MCV (RBC) [Entitic vol] 92.5 fL Normal 81-99 [facility] Comment on above: Performed By: #### L 100.0100, L500.2500 #### [facility] [address] [place], [address] Monocytes/100 WBC (Bld) 10.6 % High 0-10 [facility] Comment on above: Performed By: #### L 100.0100, L500.2500 #### [facility] [address] [place], [address] Neutrophils/100 WBC (Bld) 73.1 % High 47-70 [facility] Comment on above: Performed By: #### L 100.0100, L500.2500 #### [facility] [address] [place], [address] Nucleated RBC (Bld) [#/Vol] 0 10*3/uL Normal 0-5 [facility] Comment on above: Performed By: #### L 100.0100, L500.2500 #### [facility] [address] [place], [address] Platelet mean volume (Bld) [Entitic vol] 11.6 fL Normal 6.2-12.0 [facility] Comment on above: Performed By: #### L 100.0100, L500.2500 #### [facility] [address] [place], [address] Platelets (Bld) [#/Vol] 237 10*3/uL Normal 150-450 [facility] Comment on above: Performed By: #### L 100.0100, L500.2500 #### [facility] [address] [place], [address] RBC (Bld) [#/Vol] 3.99 10*6/uL Low 4.2-5.4 [facility] Comment on above: Performed By: #### L 100.0100, L500.2500 #### [facility] [address] [place], [address] RDW SD 61.7 fl High 35.1-43.9 [facility] Comment on above: Performed By: #### L 100.0100, L500.2500 #### [facility] [address] [place], [address] WBC (Bld) [#/Vol] 7.0 10*3/uL Normal 4.4-11.0 [facility] Comment on above: Performed By: #### L 100.0100, L500.2500 #### [facility] [address] [place], [address] Comprehensive Metabolic Prof ilon 01-13-2025 Albumin [Mass/Vol] 3.7 g/dL Normal 3.4-4.8 [facility] Comment on above: Performed By: #### L 100.0100, L500.2500 #### [facility] [address] [place], [address] Albumin/Globulin [Mass ratio] 1.0 {ratio} Normal 0.9-2.4 [facility] Comment on above: Performed By: #### L 100.0100, L500.2500 #### [facility] [address] [place], [address] ALK PHOS 68 U/L Normal 35-104 [facility] Comment on above: Performed By: #### L 100.0100, L500.2500 #### [facility] [address] [place], [address] ALT [Catalytic activity/Vol] 18 U/L Normal <=34 [facility] Comment on above: Performed By: #### L 100.0100, L500.2500 #### [facility] [address] [place], [address] AST [Catalytic activity/Vol] 24 U/L Normal <=31 [facility] Comment on above: Performed By: #### L 100.0100, L500.2500 #### [facility] [address] [place], [address] Bilirubin [Mass/Vol] 0.56 mg/dL Normal 0.00-1.30 [facility] Comment on above: Performed By: #### L 100.0100, L500.2500 #### [facility] [address] [place], [address] BUN/CRE 24.0 RATIO High 10-20 [facility] Comment on above: Performed By: #### L 100.0100, L500.2500 #### [facility] [address] [place], [address] Calcium [Mass/Vol] 9.4 mg/dL Normal 7.6-11.0 [facility] Comment on above: Performed By: #### L 100.0100, L500.2500 #### [facility] [address] [place], [address] Chloride [Moles/Vol] 99 mmol/L Normal 98-108 [facility] Comment on above: Performed By: #### L 100.0100, L500.2500 #### [facility] [address] [place], [address] CO2 [Moles/Vol] 25.5 mmol/L Normal 21.0-32.0 [facility] Comment on above: Performed By: #### L 100.0100, L500.2500 #### [facility] [address] [place], [address] Creatinine [Mass/Vol] 1.77 mg/dL High 0.70-1.20 [facility] Comment on above: Performed By: #### L 100.0100, L500.2500 #### [facility] [address] [place], [address] ECRCL 18.84 ml/min Low 50-250 [facility] Comment on above: Performed By: #### L 100.0100, L500.2500 #### [facility] [address] [place], [address] GAP 13 Normal 5-15 [facility] Comment on above: Performed By: #### L 100.0100, L500.2500 #### [facility] [address] [place], [address] GFR/1.73 sq M.predicted among non-blacks MDRD (S/P/Bld) [Vol rate/Area] 27 mL/min/{1.73_m2} Low >60 [facility] Comment on above: Result Comment: mL/m in/1.73m2 CKD-EPI Creatinine Equation (2020) Performed By: #### L 100.0100, L500.2500 #### [facility] [address] [place], [address] Globulin (S) [Mass/Vol] 3.8 g/dL Normal 2.2-4.2 [facility] Comment on above: Performed By: #### L 100.0100, L500.2500 #### [facility] [address] [place], [address] Glucose [Mass/Vol] 134 mg/dL High 70-99 [facility] Comment on above: Performed By: #### L 100.0100, L500.2500 #### [facility] [address] [place], [address] Potassium [Moles/Vol] 4.7 mmol/L Normal 3.3-5.1 [facility] Comment on above: Performed By: #### L 100.0100, L500.2500 #### [facility] [address] [place], [address] Sodium [Moles/Vol] 137 mmol/L Normal 133-145 [facility] Comment on above: Performed By: #### L 100.0100, L500.2500 #### [facility] [address] [place], [address] T PROT 7.5 g/dL Normal 5.9-8.4 [facility] Comment on above: Performed By: #### L 100.0100, L500.2500 #### [facility] [address] [place], [address] Urea nitrogen [Mass/Vol] 42 mg/dL High 4-19 [facility] Comment on above: Performed By: #### L 100.0100, L500.2500 #### [facility] [address] [place], [address] LDHon 01-13-2025 LDH 178 U/L Normal 84-246 [facility] Comment on above: Order Comment: 1 Performed By: #### L 100.0100, L500.2500 #### [facility] [address] [place], [address] Oncology Visit Reporton 01-01 Oncology Visit Report [facility] [place] [facility] [address] [place] [address] OFFICE VISIT Date of Service: 01/13/25 1541 MR#: [id number] Acct: [id number] Name: NESTOR MONTES DE OCA I Rep #: [id number] : 1935 From: Alonzo John MD Age/Sex: 89/F [place] [facility] [place] Status: Signed HPI Subjective Date of Service 01/13/25 Chief Complaint F/u for L breast cancer. History of Present Illness 89y.o.woman found a [...] to stop. Comes for follow up. Has back pain, taking Tylenol with no improvement. [facility] Medical History Pleural effusion Atrial fibrillation with RVR Congestive heart failure New onset atrial fibrillation Mass of left kidney Breast cancer Carpal tunnel syndrome of left wrist DVT (deep venous thrombosis) GERD (gastroesophageal reflux disease) Arthritis HTN (hypertension) Surgical History History of left [...] safe at home: Yes Intake Vital Signs 07/22/24 16:02 01/13/25 15:43 Height 4 ft 10 in 4 ft 10 in Weight: 64.92 kg BMI 29.9 BP 126/80 H Blood Pressure Location Rt brachial Position Sitting Respiration 18 Pulse 122 H Pulse Source Monitor Temp 97.3 F L Temperature Source Temporal Artery Pulse Oximetry (%) 100 Intake Accompanied by: Daughter Is patient in pain?: No Allergies sulfamethoxazole (From Septra) Allergy (Intermediate, Verified 01/13/25 15:46) Dizziness trimethoprim (From Septra) Allergy (Intermediate, Verified 01/13/25 15:46) Dizziness Penicillins (PCN) Allergy (Verified 01/13/25 15:46) Swelling erythromycin base Adverse Reaction (Verified 01/13/25 15:46) Nausea Medications ???Medication ???Instructions ???Recorded ???Confirmed ???Type cholecalciferol (vitamin D3) 50 2,000 unit PO DAILY SUPPLEMENT 06/2001/13/25 History mcg (2,000 unit) capsule cranberry extract-vitamin C 250 2 ea PO DAILY URINARY HEALTH 03/0501/13/25 History mg-60 mg capsule anastrozole 1 mg tablet 1 mg PO DAILY #90 tabs 07/22/24 Rx diphenhydramine HCl 25 mg tablet 25 mg PO QHS PRN allergy symptoms 07/22/24 01/13/25 History (Benadryl Allergy) omeprazole 20 mg capsule,delayed 20 mg PO QHS 10/01/24 01/13/25 His tory release oxybutynin chloride 5 mg 5 mg PO DAILY 10/01/24 01/13/25 Hi story tablet,extended release 24 hr furosemide 40 mg tablet (Lasix) 40 mg PO DAILY #30 tabs 10/03/24 1 Rx apixaban 5 mg tablet (Eliquis) 5 mg PO BID #60 tabs 10/30/2401/01 Rx metoprolol tartrate 50 mg tablet 50 mg PO BID 10/30/24 01/13/25 His tory bvaxwntn-csol-goir 8 mg-folic 400 1 tab PO QDAY 10/30/24 01/13/25 H istory mcg-K 50 mcg-lutein 300 mcg tablet (Centrum Silver Women) potassium chloride 20 mEq 20 meq PO DAILY #90 tabs 11/26/24 01/13/25 Rx tablet,extended release(part/cryst) Have you fallen in the past year?: No Central Venous Ac (more content not included)... Normal [facility] Anion gap in Serum or Plasma Ordered By: Royce Garcia on 11-28-2024 Anion gap [Moles/Vol] 12 mmol/L - [facility] BUN/creatinine ratioOrdered By: Royce Garcia on 11-28-2024 Urea nitrogen/Creatinine [Mass ratio] 29.0 mg/mg High 01-20 [facility] Basic Metabolic Profile (BMP )on 11-28-2024 BUN/CRE 29.0 RATIO High 01-20 [facility] Comment on above: Order Comment: Order Date: 11/18/24Order Info: 666-04 - BMP Performed By: #### L 100.0100, L500.2500 #### [facility] [address] [place], [address] GAP 12 Normal 5-15 [facility] Comment on above: Order Comment: Order Date: 11/18/24Order Info: 666-04 - BMP Performed By: #### L 100.0100, L500.2500 #### [facility] [address] [place], [address] Potassium [Moles/Vol] 4.4 mmol/L Normal 3.3-5.1 [facility] Comment on above: Order Comment: Order Date: 11/18/24Order Info: 666-04 - BMP Performed By: #### L 100.0100, L500.2500 #### [facility] [address] [place], [address] Breast imaging reportOrdered By: Estella Ferro on 11-28-2024 Study report [facility] Imaging Services [address] [place], [place] [address] SCREEN MAMM (CAD) W/LISANDRO UNI R MR#: [id number] Acct: [id number] Name: NESTOR MONTES DE OCA I Rep #: [id number] : 1935 F 89 From: Trevin Hansen MD PCP: Dr. Waqas Scott MD Status: REG C CURT Study:SCREEN MAMM (CAD) W/LISANDRO UNI R Date of Exam: 11/28/24 Exam# [id number] Ordering Dr: Robinson Yepez DO EXAM: SCREEN MAMM (CAD) W/LISANDRO UNI R DATE: 11/28/2024 CLINICAL HISTORY: F, Age 89 y/o , ANNUAL EXAM TECHNIQUE: SCREEN MAMM (CAD) W/LISANDRO UNI R COMPARISON: Prior exam(s) were compared FINDINGS: TISSUE DENSITY: The breasts are heterogeneously dense, which may obscure small masses. Unilateral Right Breast Mammographic Findings: No suspicious masses, calcifications or other abnormalities are identified. BI/SCREEN MAMM (CAD) W/LISANDRO UNI R IMPRESSION: No mammographic evidence of malignancy OVERALL FINAL ASSESSMENT BI-RADS 1: NEGATIVE. RECOMMENDATION: Routine annual follow-up in 1 Year A letter with findings and recommendations will be mailed to the patient. Reading Location: [id number] CC: Dr. Waqas Scott MD; Dr. Robinson Yepez DO ~ City Carrier Assistant: Signed [facility] Carbon dioxide, total [Moles /volume] in Central venous bloodOrdered By: Royce Garcia on 11-28-2024 CO2 [Moles/Vol] 26.6 mmol/L Normal 21.0-32.0 [facility] Comment on above: Order Comment: Order Date: 11/18/24Order Info: 0667-1 - BMP Performed By: #### L 100.0100, L500.2500 #### [facility] [address] [place], [place], [address] Chloride assayOrdered By: Griselda abbott McMorrmarcos on 11-28-2024 Chloride [Moles/Vol] 100 mmol/L Normal 98-108 [facility] Comment on above: Order Comment: Order Date: 11/18/24Order Info: 0667-1 - BMP Performed By: #### L 100.0100, L500.2500 #### [facility] [address] [facility] [place], [place], [address] Glomerular filtration rate ( GFR) estimation/1.73 sq m using serum, plasma, or whole bOrdered By: Royce Garcia on 11-28-2024 GFR/1.73 sq M.predicted among non-blacks MDRD (S/P/Bld) [Vol rate/Area] 42 mL/min/{1.73_m2} Low >60 [facility] Comment on above: mL/min/1.73m2 CKD-EP I Creatinine Equation (2020) Order Comment: Order Date: 11/18/24Order Info: 0667-1 - BMP Result Comment: mL/m in/1.73m2 CKD-EPI Creatinine Equation (2020) Performed By: #### L 100.0100, L500.2500 #### [facility] [address] [place], [place], [address] Potassium measurement (mass/ volume)Ordered By: Royce Garcia on 11-28-2024 Potassium (Unsp spec) [Mass/Vol] 4.4 mmol/L 3.3-5.1 [facility] SCREEN MAMM (CAD) W/LISANDRO UNI Hank 11-28-2024 SCREEN MAMM (CAD) W/LISANDRO UNI R [facility] Imaging Services [address] [place] [address] SCREEN MAMM (CAD) W/LISANDRO UNI R MR#: [id number] Acct: [id number] Name: NESTOR MONTES DE OCA I Rep #: [id number] : 1935 F 89 From: Estella Anne i, MD PCP: Dr. Waqas Scott MD Status: [facility] CLI Study: SCREEN MAMM (CAD) W/LISANDRO UNI R Date of Exam: 0 11/28/24 Exam# [id number] Ordering Dr: Robinson Yepez DO EXAM: SCREEN MAMM (CAD) W/LISANDRO UNI R DATE: 11/28/2024 CLINICAL HISTORY: F, Age 89 y/o , ANNUAL EXAM TECHNIQUE: SCREEN MAMM (CAD) W/LISANDRO UNI R COMPARISON: Prior exam(s) were compared FINDINGS: TISSUE DENSITY: The breasts are heterogeneously dense, which may obscure small masses. Unilateral Right Breast Mammographic Findings: No suspicious masses, calcifications or other abnormalities are identified. BI/SCREEN MAMM (CAD) W/LISANDRO UNI R IMPRESSION: No mammographic evidence of malignancy OVERALL FINAL ASSESSMENT BI-RADS 1: NEGATIVE. RECOMMENDATION: Routine annual follow-up in 1 Year A letter with findings and recommendations will be mailed to the patient. Reading Location: [id number] CC: Dr. Waqas Scott MD; Dr. Robinson Yepez DO City Carrier Assistant: Signed Normal [facility] Serum creatinine measurement (mass/volume)Ordered By: Royce Garcia on 11-28-2024 Creatinine [Mass/Vol] 1.24 mg/dL High 0.70-1.20 [facility] Comment on above: Order Comment: Order Date: 11/18/24Order Info: 0667-1 - BMP Performed By: #### L 100.0100, L500.2500 #### [facility] [address] [place], [address] Serum glucose measurement (m ass/volume)Ordered By: Royce Sofiecandace on 11-28-2024 Glucose [Mass/Vol] 107 mg/dL High 70-99 [facility] Comment on above: Order Comment: Order Date: 11/18/24Order Info: 0667 - BMP Performed By: #### L 100.0100, L500.2500 #### [facility] [address] [place], [address] Serum or plasma calcium rkysten urement (mass/volume)Ordered By: Royce Garcia on 11-28-2024 Calcium [Mass/Vol] 9.6 mg/dL Normal 7.6-11.0 [facility] Comment on above: Order Comment: Order Date: 11/18/24Order Info: 0667- - BMP Performed By: #### L 100.0100, L500.2500 #### [facility] [address] [place], [address] Serum or plasma urea nitroge n measurement (mass/volume)Ordered By: Royce Garcia on 11-28-2024 Urea nitrogen [Mass/Vol] 36 mg/dL High 4-19 [facility] Comment on above: Order Comment: Order Date: 11/18/24Order Info: 0667-1 - BMP Performed By: #### L 100.0100, L500.2500 #### [facility] [address] [place], [address] Sodium levelOrdered By: Maribeth Garcia on 11-28-2024 Sodium [Moles/Vol] 138 mmol/L Normal 133-145 [facility] Comment on above: Order Comment: Order Date: 11/18/24Order Info: 0667-1 - BMP Performed By: #### L 100.0100, L500.2500 #### [facility] [address] [place], [address] Cardiology Visit Reporton Cardiology Visit Report [facility] [place] [facility] [address] [place] [address] OFFICE VISIT Date of Service: 10/30/24 MR#: [id number] Acct: [id number] Name: NESTOR MONTES DE OCA I Rep #: [id number] : 1935 Provider: Dr. Luis Fernando Garza MD Age/Sex: 89/F [place] [facility] [place] Status: Signed HPI HPI History of Present Illness Details: Pleasant 89-year-old lady who was recently admitted to the hospital on account of palpitations and shortness of breath. She apparently developed fairly recent onset atrial fibrillation with a rapid ventricular response rate. She presented to the emergency room after she had been in her physician's office she had been complaining of bilateral pedal edema. She had been on medication. In the emergency room she was noted to be in atrial fibrillation with a rapid ventricular response rate. Her blood pressure was under good control. She was admitted and had an echocardiogram which demonstrated an ejection fraction of 55 to 60% and normal atrial sizes and mild to moderate mitral regurgitation. She was placed on medication including anticoagulation as well as diuresis. She was subsequently discharged for outpatient follow-up. Since then she has denied any chest pain or shortness of breath she is worried about her heart rate being irregular. She has been monitoring this and also been taking her blood pressures. Her electrocardiogram on admission had demonstrated atrial fibrillation with a rate of 89 bpm and her electrocardiogram today demonstrates atrial fibrillation with a rate of 107 bpm. Her physical exam demonstrates clear lung melendez and irregular heart rate. She tells me that her beta-danya dose was just increased. Intake Vital Signs 10/02/24 13:07 10/30/24 13:20 Height 4 ft 10 in 4 ft 10 in Weight: 138 lb BMI 28.8 BP 138/83 H Blood Pressure Location Rt brachial Position Sitting Respiration 18 Pulse 78 Pulse Source Monitor Intake Visit Reasons: S/P [facility] 10/03 Accompanied by: Grandson Is patient in pain?: No Allergies sulfamethoxazole (From ) Allergy (Intermediate, Verified 10/30/24 13:33) Dizziness trimethoprim (From ) Allergy (Intermediate, Verified 10/30/24 13:33) Dizziness Penicillins (PCN) Allergy (Verified 10/30/24 13:33) Swelling erythromycin base Adverse Reaction (Verified 10/30/24 13:33) Nausea Medications ???Medication ???Instructions ???Recorded ???Confirmed ???Type cholecalciferol (vitamin D3) 50 2,000 unit PO DAILY SUPPLEMENT 06/2010/17/24 History mcg (2,000 unit) capsule cranberry extract-vitamin C 250 2 ea PO DAILY URINARY HEALTH 03/0510/30/24 History mg-60 mg capsule anastrozole 1 mg tablet 1 mg PO DAILY #90 tabs 07/22/24 Rx diphenhydramine HCl 25 mg tablet 25 mg PO QHS PRN allergy symptoms 07/22/24 10/30/24 History (Benadryl Allergy) omeprazole 20 mg capsule,delayed 20 mg PO QHS 10/01/24 10/17/24 His tory release oxybutynin chloride 5 mg 5 mg PO DAILY 10/01/24 10/17/24 Hi story tablet,extended release 24 hr furosemide 40 mg tablet (Lasix) 40 mg PO DAILY #30 tabs 10/03/24 0 10/30/24 Rx potassium chloride 20 mEq 20 meq PO DAILY #30 tabs 10/03/24 10/30/24 Rx tablet,extended release(part/cryst) apixaban 5 mg tablet (Eliquis) 5 mg PO BID #60 tabs 10/30/2410/03 Rx metoprolol tartrate 50 mg tablet 50 mg PO BID 10/30/24 10/30/24 His tory klzyhgcz-tzns-rfnq 8 mg-folic 400 1 tab PO QDAY 10/30/24 10/30/24 H istory mcg-K 50 mcg-lutein 300 mcg tablet (Centrum Silver Women) Have you fallen in the past year?: Yes (1 fall-away from walker and lost balance) PFSH Medical History Pleural effusion Atrial fibrillation with RVR Congestive heart failure New onset atrial fibrillation Mass of left kidney Breast cancer Carpal tunnel syndrome of left wrist DVT (deep venous thrombosis) GERD (gastroesophageal reflux disease) Arthritis HTN (hypertension) Surgical History History of left [...] what type of physical activity do you part (more content not included)... Normal [facility] Basic Metabolic Profile (BMP )on 10-04-2024 BUN Normal - [facility] Comment on above: Result Comment: Canc elled via OM: Order cancelled - Patient discharged Performed By: #### L 100.0100, L500.2500 #### [facility] [address] [place] [address] BUN/CRE Normal 10-20 [facility] Comment on above: Result Comment: Canc elled via OM: Order cancelled - Patient discharged Performed By: #### L 100.0100, L500.2500 #### [facility] [address] [place], [address] Calcium Normal 7.6-11.0 [facility] Comment on above: Result Comment: Canc elled via OM: Order cancelled - Patient discharged Performed By: #### L 100.0100, L500.2500 #### [facility] [address] [place], [address] CL Normal 98-108 [facility] Comment on above: Result Comment: Canc elled via OM: Order cancelled - Patient discharged Performed By: #### L 100.0100, L500.2500 #### [facility] [address] [place], [address] CO2 Normal 21.0-32.0 [facility] Comment on above: Result Comment: Canc elled via OM: Order cancelled - Patient discharged Performed By: #### L 100.0100, L500.2500 #### [facility] [address] [place], [address] CREAT,SERUM Normal 0.70-1.20 [facility] Comment on above: Result Comment: Canc elled via OM: Order cancelled - Patient discharged Performed By: #### L 100.0100, L500.2500 #### [facility] [address] [place], [address] eGFR Normal >60 [facility] Comment on above: Result Comment: Canc elled via OM: Order cancelled - Patient discharged Performed By: #### L 100.0100, L500.2500 #### [facility] [address] [place], [address] GAP Normal 5-15 [facility] Comment on above: Result Comment: Canc elled via OM: Order cancelled - Patient discharged Performed By: #### L 100.0100, L500.2500 #### [facility] [address] [place], [address] GLU Normal 70-99 [facility] Comment on above: Result Comment: Canc elled via OM: Order cancelled - Patient discharged Performed By: #### L 100.0100, L500.2500 #### [facility] [address] [place], [address] Potassium Normal 3.3-5.1 [facility] Comment on above: Result Comment: Canc elled via OM: Order cancelled - Patient discharged Performed By: #### L 100.0100, L500.2500 #### [facility] [address] [place], [address] Basic Metabolic Profile (BMP) Normal 133-145 [facility] Comment on above: Result Comment: Canc elled via OM: Order cancelled - Patient discharged Performed By: #### L 100.0100, L500.2500 #### [facility] [address] [place], [address] CBC W/Diff, Automatedon 07-0 -2024 Absolute Neut Normal 2.0-7.7 [facility] Comment on above: Result Comment: Canc elled via OM: Order cancelled - Patient discharged Performed By: #### L 100.0100, L500.2500 #### [facility] [address] [place], [address] HCT Normal 37-47 [facility] Comment on above: Result Comment: Canc elled via OM: Order cancelled - Patient discharged Performed By: #### L 100.0100, L500.2500 #### [facility] [address] [place], [address] HGB Normal 12.0-15.0 [facility] Comment on above: Result Comment: Canc elled via OM: Order cancelled - Patient discharged Performed By: #### L 100.0100, L500.2500 #### [facility] [address] [place], [address] MCH Normal 27.0-32.0 [facility] Comment on above: Result Comment: Canc elled via OM: Order cancelled - Patient discharged Performed By: #### L 100.0100, L500.2500 #### [facility] [address] [place], [address] MCHC Normal 32-36 [facility] Comment on above: Result Comment: Canc elled via OM: Order cancelled - Patient discharged Performed By: #### L 100.0100, L500.2500 #### [facility] [address] [place], [address] MCV Normal 81-99 [facility] Comment on above: Result Comment: Canc elled via OM: Order cancelled - Patient discharged Performed By: #### L 100.0100, L500.2500 #### [facility] [address] [place], [address] NEUT% Normal 47-70 [facility] Comment on above: Result Comment: Canc elled via OM: Order cancelled - Patient discharged Performed By: #### L 100.0100, L500.2500 #### [facility] [address] [place], [address] PLT Normal 150-450 [facility] Comment on above: Result Comment: Canc elled via OM: Order cancelled - Patient discharged Performed By: #### L 100.0100, L500.2500 #### [facility] [address] [place], [address] RBC Normal 4.2-5.4 [facility] Comment on above: Result Comment: Canc elled via OM: Order cancelled - Patient discharged Performed By: #### L 100.0100, L500.2500 #### [facility] [address] [place], [address] RDW CV Normal 11.6-14.6 [facility] Comment on above: Result Comment: Canc elled via OM: Order cancelled - Patient discharged Performed By: #### L 100.0100, L500.2500 #### [facility] [address] [place], [address] RDW SD Normal 35.1-43.9 [facility] System Comment on above: Result Comment: Canc elled via OM: Order cancelled - Patient discharged Performed By: #### L 100.0100, L500.2500 #### [facility] [address] [place], [address] WBC Normal 4.4-11.0 [facility] Comment on above: Result Comment: Canc elled via OM: Order cancelled - Patient discharged Performed By: #### L 100.0100, L500.2500 #### [facility] [address] [place], [address] Absolute lymphocyte countOrd ered By: Dedrick Mckeon on 10-03-2024 Lymphocytes Auto (Unsp spec) [#/Vol] 0.75 10*3/uL Low 0.83-4.51 [facility] Absolute neutrophil countOrd ered By: Dedrick Mckeon on 10-03-2024 Neutrophils (Bld) [#/Vol] 5.1 10*3/uL 2.0-7.7 [facility] Anion gap in Serum or Plasma Ordered By: Dedrick Mckeon on 10-03-2024 Anion gap [Moles/Vol] 12 mmol/L 5-15 [facility] Automated blood erythrocyte countOrdered By: Dedrick Mckeon on 10-03-2024 RBC (Bld) [#/Vol] 3.54 10*6/uL Low 4.2-5.4 [facility] Comment on above: Performed By: #### L 500.2500, L100.0100 #### [facility] [address] [place], [address] Automated blood hematocrit ( percentage)Ordered By: Dedrick Mckeon on 10-03-2024 Hematocrit (Bld) [Volume fraction] 31.7 % Low 37-47 [facility] Comment on above: Performed By: #### L 500.2500, L100.0100 #### [facility] [address] [place], [address] Automated lymphocyte count a s percentage of total leukocytesOrdered By: Dedrick Mckeon on 10-03-2024 Lymphocytes/100 WBC Auto (Unsp spec) 10.9 % Low 19-41 [facility] BUN/creatinine ratioOrdered By: Dedrick Mckeon on 10-03-2024 Urea nitrogen/Creatinine [Mass ratio] 23.8 mg/mg High 10-20 [facility] Basic Metabolic Profile (BMP )on 10-03-2024 BUN/CRE 23.8 RATIO High 10-20 [facility] Comment on above: Performed By: #### L 501.9520, L500.2500, L100.0100 #### [facility] [address] [place], [address] ECRCL 25.67 ml/min Low 50-250 [facility] Comment on above: Performed By: #### L 501.9520, L500.2500, L100.0100 #### [facility] [address] [place], [address] GAP 12 Normal 5-15 [facility] Comment on above: Performed By: #### L 501.9520, L500.2500, L100.0100 #### [facility] [address] [place], [address] Potassium [Moles/Vol] 3.6 mmol/L Normal 3.3-5.1 [facility] Comment on above: Performed By: #### L 501.9520, L500.2500, L100.0100 #### [facility] [address] [place], [address] Basophil percentageOrdered B y: Dedrick Mckeon on 10-03-2024 Basophils/100 WBC (Bld) 0.9 % Normal 0-1 [facility] Comment on above: Performed By: #### L 500.2500, L100.0100 #### [facility] [address] [place], [address] CBC W/Diff, Automatedon Absolute Lymph 0.75 X10 3/uL Low 0.83-4.51 [facility] Comment on above: Performed By: #### L 500.2500, L100.0100 #### [facility] [address] [place], [address] Absolute Neut 5.1 X10 3/uL Normal 2.0-7.7 [facility] Comment on above: Performed By: #### L 500.2500, L100.0100 #### [facility] [address] [place], [address] IG% 0.300 Normal 0.0-0.9 [facility] Comment on above: Result Comment: IG% - Immature Granulocytes (promyelocytes, myelocytes and metamyelocytes) > 1% indicates that a LEFT SHIFT is Present. Performed By: #### L 500.2500, L100.0100 #### [facility] [address] [place], [address] Lymphocytes/100 WBC (Bld) 10.9 % Low 19-41 [facility] Comment on above: Performed By: #### L 500.2500, L100.0100 #### [facility] [address] [place], [address] Nucleated RBC (Bld) [#/Vol] 0 10*3/uL Normal 0-5 [facility] Comment on above: Performed By: #### L 500.2500, L100.0100 #### [facility] [address] [place], [address] RDW SD 49.0 fl High 35.1-43.9 [facility] Comment on above: Performed By: #### L 500.2500, L100.0100 #### [facility] [address] [place], [address] Carbon dioxide, total [Moles /volume] in Central venous bloodOrdered By: Dedrick Mckeon on 10-03-2024 CO2 [Moles/Vol] 27.7 mmol/L Normal 21.0-32.0 [facility] Comment on above: Performed By: #### L 501.9520, L500.2500, L100.0100 #### [facility] [address] [place], [address] Chloride assayOrdered By: Kwame Mckeon on 10-03-2024 Chloride [Moles/Vol] 96 mmol/L Low 98-108 [facility] Comment on above: Performed By: #### L 501.9520, L500.2500, L100.0100 #### [facility] [address] [place], [address] Electrocardiogram reportOrde red By: Luis Fernando Garza on 10-03-2024 EKG study [facility] Cardiovascular Services [address] [place] [address] 12 Lead EKG 10/02/24 0921 MR#: [id number] Acct: [id number] Name: NESTOR MONTES DE OCA I Rep #:[id number] : 1935 89 From: Luis Fernando Garza MD Attending Dr: Dr. Dedrick Mckeon MD Status: ADM IN Ordering Dr: Dedrick Mckeon MD Date: Location: [facility] Sex: F C Admitted: 10/01/24 Test Reason : CP Blood Pressure : */* mmHG Vent. Rate : 89 BPM Atrial Rate : * BPM P-R Int : * ms QRS Dur : 82 ms QT Int : 382 ms P-R-T Axes : * 6 -43 degrees QTcB Int : 464 ms Atrial fibrillation Nonspecific ST and T wave abnormality Abnormal ECG When compared with ECG of 01-Oct-2024 11:04, MANUAL COMPARISON REQUIRED DATA IS UNCONFIRMED Confirmed by LUIS FERNANDO GARZA MD ([id number]), content editor MARCUS VARELA ([id number]) on 10/03/2024 5:58:51 AM Referred By: MIKE Confirmed By: LUIS FERNANDO GARZA MD 10/03/24 0558 Date _ Luis Fernando Garza MD CC: Dr. Dedrick Mckeon MD; Dr. Waqas Scott MD ~ Signed [facility] Other Phone: Eosinophil percentageOrdered By: Dedrick Mckeon on 10-03-2024 Eosinophils/100 WBC (Bld) 4.1 % Normal 0-5 [facility] Comment on above: Performed By: #### L 500.2500, L100.0100 #### [facility] [address] [place], [place], [id number] Erythrocyte distribution wid th ratioOrdered By: Dedrick Mckeon on 10-03-2024 Erythrocyte distribution width (RBC) [Ratio] 14.9 % High 11.6-14.6 [facility] Comment on above: Performed By: #### L 500.2500, L100.0100 #### [facility] [address] [place], [place], [address] Erythrocyte distribution wid th standard deviationOrdered By: Dedrick Mckeon on 10-03-2024 Erythrocyte distribution width (RBC) [Ratio] 49.0 fl High 35.1-43.9 [facility] Glomerular filtration rate ( GFR) estimation/1.73 sq m using serum, plasma, or whole bOrdered By: Dedrick Mckeon on 10-03-2024 GFR/1.73 sq M.predicted among non-blacks MDRD (S/P/Bld) [Vol rate/Area] 39 mL/min/{1.73_m2} Low >60 [facility] Comment on above: mL/min/1.73m2 CKD-EP I Creatinine Equation (2020) Result Comment: mL/m in/1.73m2 CKD-EPI Creatinine Equation (2020) Performed By: #### L 501.9520, L500.2500, L100.0100 #### [facility] [address] [place], [place], [address] Hemoglobin measurementOrdere d By: Dedrick Mckeon on 10-03-2024 Hemoglobin (Bld) [Mass/Vol] 10.4 g/dL Low 12.0-15.0 [facility] Comment on above: Performed By: #### L 500.2500, L100.0100 #### [facility] [address] [place], [address] Immature granulocytes/100 WB C Auto (Bld)Ordered By: Dedrick Mckeon on 10-03-2024 Immature granulocytes/100 WBC (Bld) 0.300 % 0.0-0.9 [facility] Comment on above: IG% - Immature Granu locytes (promyelocytes, myelocytes and metamyelocytes) > 1% indicates that a LEFT SHIFT is Present. MCV (mean corpuscular volume ) determinationOrdered By: Dedrick Mckeon on 10-03-2024 MCV (RBC) [Entitic vol] 89.5 fL Normal 81-99 [facility] Comment on above: Performed By: #### L 500.2500, L100.0100 #### [facility] [address] [place], [place], [id number] Mean corpuscular hemoglobin (MCH) determinationOrdered By: Dedrick Mckeon on 10-03-2024 MCH (RBC) [Entitic mass] 29.4 pg Normal 27.0-32.0 [facility] Comment on above: Performed By: #### L 500.2500, L100.0100 #### [facility] [address] [place], [address] Mean corpuscular hemoglobin concentration (MCHC) determinationOrdered By: Dedrick Mckeon on 10-03-2024 MCHC (RBC) [Mass/Vol] 32.8 g/dL Normal 32-36 [facility] Comment on above: Performed By: #### L 500.2500, L100.0100 #### [facility] [address] [place], [address] Mean platelet volume determi nationOrdered By: Dedrcik Mckeon on 10-03-2024 Platelet mean volume (Bld) [Entitic vol] 10.8 fL Normal 6.2-12.0 [facility] Comment on above: Performed By: #### L 500.2500, L100.0100 #### [facility] [address] [place], [address] Monocyte percentageOrdered B y: Dedrick Mckeon on 10-03-2024 Monocytes/100 WBC (Bld) 10.4 % High 0-10 [facility] Comment on above: Performed By: #### L 500.2500, L100.0100 #### [facility] [address] [place], [address] Neutrophil percentageOrdered By: Dedrick Mckeon on 10-03-2024 Neutrophils/100 WBC (Bld) 73.4 % High 47-70 [facility] Comment on above: Performed By: #### L 500.2500, L100.0100 #### [facility] [address] [place], [address] Nucleated red blood cell per centageOrdered By: Dedrick Mckeon on 10-03-2024 Nucleated RBC/100 WBC (Bld) [Ratio] 0 % 0-5 [facility] Platelet countOrdered By: Kwame Mckeon on 10-03-2024 Platelets (Bld) [#/Vol] 292 10*3/uL Normal 150-450 [facility] Comment on above: Performed By: #### L 500.2500, L100.0100 #### [facility] [address] [place], [address] Potassium measurement (mass/ volume)Ordered By: Dedrick Mckeon on 10-03-2024 Potassium (Unsp spec) [Mass/Vol] 3.6 mmol/L 3.3-5.1 [facility] Serum creatinine measurement (mass/volume)Ordered By: Dedrick Mckeon on 10-03-2024 Creatinine [Mass/Vol] 1.31 mg/dL High 0.70-1.20 [facility] Comment on above: Performed By: #### L 501.9520, L500.2500, L100.0100 #### [facility] [address] [place], [address] Serum glucose measurement (m ass/volume)Ordered By: Dedrick Mckeon on 10-03-2024 Glucose [Mass/Vol] 73 mg/dL Normal 70-99 [facility] Comment on above: Performed By: #### L 501.9520, L500.2500, L100.0100 #### [facility] [address] [place], [address] Serum or plasma calcium krysten urement (mass/volume)Ordered By: Dedrick Mckeon on 10-03-2024 Calcium [Mass/Vol] 8.7 mg/dL Normal 7.6-11.0 [facility] Comment on above: Performed By: #### L 501.9520, L500.2500, L100.0100 #### [facility] [address] [place], [address] Serum or plasma urea nitroge n measurement (mass/volume)Ordered By: Dedrick Mckeon on 10-03-2024 Urea nitrogen [Mass/Vol] 31 mg/dL High 4-19 [facility] Comment on above: Performed By: #### L 501.9520, L500.2500, L100.0100 #### [facility] [address] [place], [address] Sodium levelOrdered By: Laurent Mckeon on 10-03-2024 Sodium [Moles/Vol] 136 mmol/L Normal 133-145 [facility] Comment on above: Performed By: #### L 501.9520, L500.2500, L100.0100 #### [facility] [address] [place], [address] Urine Cultureon 10-03-2024 [facility] Citrobacter youngae [place] Count 80,000-100,000 Citrobacter youngae: REACTION Cefepime Islt CARLOS <=0.12 cefTRIAXone Islt CARLOS <=0.25 S Ciprofloxacin Islt CARLOS <=0.06 S Gentamicin Islt CARLOS <=1 S levoFLOXacin Islt CARLOS <=0.12 S Meropenem Islt CARLOS <=0.25 S Nitrofurantoin Islt CRALOS <=16 S Pip+Tazo Islt CARLOS <=4 S TMP SMX Islt CARLOS <=20 S Normal [facility] Comment on above: Performed By: #### L 100.0100, L500.2500 #### [facility] [address] [place], [address] [facility] Citrobacter youngae [place] Count >100,000 Citrobacter youngae: REACTION Cefepime Islt CARLOS <=0.12 cefTRIAXone Islt CARLOS <=0.25 S Ciprofloxacin Islt CARLOS <=0.06 S Gentamicin Islt CARLOS <=1 S levoFLOXacin Islt CARLOS <=0.12 S Meropenem Islt CARLOS <=0.25 S Nitrofurantoin Islt CARLOS <=16 S Pip+Tazo Islt CARLOS <=4 S TMP SMX Islt CARLOS <=20 S Normal [facility] Comment on above: Performed By: #### L 501.9520, L500.2500, L100.0100 #### [facility] [address] [place], [address] White blood cell (WBC) count Ordered By: Dedrick Mckeon on 10-03-2024 WBC (Bld) [#/Vol] 6.9 10*3/uL Normal 4.4-11.0 [facility] Comment on above: Performed By: #### L 500.2500, L100.0100 #### [facility] [address] [place], [address] 12 Lead EKGon 10-02-2024 12 Lead EKG [facility] Cardiovascular Services [address] [place] [address] 12 Lead EKG 10/02/24 0921 MR#: [id number] Acct: [id number] Name: NESTOR MONTES DE OCA I Rep #: [id number] : 1935 89 From: Luis Fernando Garza MD Attending Dr: Dr. Dedrick Mckeon MD Status: ADM IN Ordering Dr: Dedrick Mckeon MD Date: 10/02/24 Location: U Sex: F C Admitted: 10/01/24 Test Reason : CP Blood Pressure : */* mmHG Vent. Rate : 89 BPM Atrial Rate : * BPM P-R Int : * ms QRS Dur : 82 ms QT Int : 382 ms P-R-T Axes : * 6 -43 degrees QTcB Int : 464 ms Atrial fibrillation Nonspecific ST and T wave abnormality Abnormal ECG When compared with ECG of 01-Oct-2024 11:04, MANUAL COMPARISON REQUIRED DATA IS UNCONFIRMED Confirmed by KAYLA KINNEY, LUIS FERNANDO ([id number]), content editor MARCUS VARELA ([id number]) on 10/03/2024 5:58:51 AM Referred By: MIKE Confirmed By: LUIS FERNANDO GARZA MD 10/03/24 0558 Date Luis Fernando Garza MD CC: Dr. Dedrick Mckeon MD; Dr. Waqas Scott MD Signed Normal [facility] Basic Metabolic Profile (BMP )on 10-02-2024 BUN/CRE 22.4 RATIO High 10-20 [facility] Comment on above: Performed By: #### L 501.9520, L500.2500, L100.0100 #### [facility] [address] [place], [address] Calcium [Mass/Vol] 8.8 mg/dL Normal 7.6-11.0 [facility] Comment on above: Performed By: #### L 501.9520, L500.2500, L100.0100 #### [facility] [address] [place], [address] Chloride [Moles/Vol] 99 mmol/L Normal 98-108 [facility] Comment on above: Performed By: #### L 501.9520, L500.2500, L100.0100 #### [facility] [address] [place], [address] CO2 [Moles/Vol] 24.3 mmol/L Normal 21.0-32.0 [facility] Comment on above: Performed By: #### L 501.9520, L500.2500, L100.0100 #### [facility] [address] [place], [address] Creatinine [Mass/Vol] 1.39 mg/dL High 0.70-1.20 [facility] Comment on above: Performed By: #### L 501.9520, L500.2500, L100.0100 #### [facility] [address] [place], [address] ECRCL 24.48 ml/min Low 50-250 [facility] Comment on above: Performed By: #### L 501.9520, L500.2500, L100.0100 #### [facility] [address] [place], [address] GAP 12 Normal 5-15 [facility] Comment on above: Performed By: #### L 501.9520, L500.2500, L100.0100 #### [facility] [address] [place], [address] GFR/1.73 sq M.predicted among non-blacks MDRD (S/P/Bld) [Vol rate/Area] 36 mL/min/{1.73_m2} Low >60 [facility] Comment on above: Result Comment: mL/m in/1.73m2 CKD-EPI Creatinine Equation (2020) Performed By: #### L 501.9520, L500.2500, L100.0100 #### [facility] [address] [place], [address] Glucose [Mass/Vol] 71 mg/dL Normal 70-99 [facility] Comment on above: Performed By: #### L 501.9520, L500.2500, L100.0100 #### [facility] [address] [place], [address] Potassium [Moles/Vol] 4.0 mmol/L Normal 3.3-5.1 [facility] Comment on above: Performed By: #### L 501.9520, L500.2500, L100.0100 #### [facility] [address] [place], [address] Sodium [Moles/Vol] 135 mmol/L Normal 133-145 [facility] Comment on above: Performed By: #### L 501.9520, L500.2500, L100.0100 #### [facility] [address] [place], [address] Urea nitrogen [Mass/Vol] 31 mg/dL High 4-19 [facility] Comment on above: Performed By: #### L 501.9520, L500.2500, L100.0100 #### [facility] [address] [place], [address] CBC W/Diff, Automatedon 07-0 2-2025 Absolute Lymph 0.77 X10 3/uL Low 0.83-4.51 [facility] Comment on above: Performed By: #### L 501.9520, L500.2500, L100.0100 #### [facility] [address] [place], [address] Absolute Neut 5.1 X10 3/uL Normal 2.0-7.7 [facility] Comment on above: Performed By: #### L 501.9520, L500.2500, L100.0100 #### [facility] [address] [place], [address] Basophils/100 WBC (Bld) 0.7 % Normal 0-1 [facility] Comment on above: Performed By: #### L 501.9520, L500.2500, L100.0100 #### [facility] [address] [place], [address] Eosinophils/100 WBC (Bld) 4.2 % Normal 0-5 [facility] Comment on above: Performed By: #### L 501.9520, L500.2500, L100.0100 #### [facility] [address] [place], [address] Erythrocyte distribution width (RBC) [Ratio] 15.2 % High 11.6-14.6 [facility] Comment on above: Performed By: #### L 501.9520, L500.2500, L100.0100 #### [facility] [address] [place], [address] Hematocrit (Bld) [Volume fraction] 31.4 % Low 37-47 [facility] Comment on above: Performed By: #### L 501.9520, L500.2500, L100.0100 #### [facility] [address] [place], [address] Hemoglobin (Bld) [Mass/Vol] 10.2 g/dL Low 12.0-15.0 [facility] Comment on above: Performed By: #### L 501.9520, L500.2500, L100.0100 #### [facility] [address] [place], [address] IG% 0.100 Normal 0.0-0.9 [facility] Comment on above: Result Comment: IG% - Immature Granulocytes (promyelocytes, myelocytes and metamyelocytes) > 1% indicates that a LEFT SHIFT is Present. Performed By: #### L 501.9520, L500.2500, L100.0100 #### [facility] [address] [place], [address] Lymphocytes/100 WBC (Bld) 11.2 % Low 19-41 [facility] Comment on above: Performed By: #### L 501.9520, L500.2500, L100.0100 #### [facility] [address] [place], [address] MCH (RBC) [Entitic mass] 29.4 pg Normal 27.0-32.0 [facility] Comment on above: Performed By: #### L 501.9520, L500.2500, L100.0100 #### [facility] [address] [place], [address] MCHC (RBC) [Mass/Vol] 32.5 g/dL Normal 32-36 [facility] Comment on above: Performed By: #### L 501.9520, L500.2500, L100.0100 #### [facility] [address] [place], [address] MCV (RBC) [Entitic vol] 90.5 fL Normal 81-99 [facility] Comment on above: Performed By: #### L 501.9520, L500.2500, L100.0100 #### [facility] [address] [place], [address] Monocytes/100 WBC (Bld) 10.2 % High 0-10 [facility] Comment on above: Performed By: #### L 501.9520, L500.2500, L100.0100 #### [facility] [address] [place], [address] Neutrophils/100 WBC (Bld) 73.6 % High 47-70 [facility] Comment on above: Performed By: #### L 501.9520, L500.2500, L100.0100 #### [facility] [address] [place], [address] Nucleated RBC (Bld) [#/Vol] 0 10*3/uL Normal 0-5 [facility] Comment on above: Performed By: #### L 501.9520, L500.2500, L100.0100 #### [facility] [address] [place], [address] Platelet mean volume (Bld) [Entitic vol] 10.7 fL Normal 6.2-12.0 [facility] Comment on above: Performed By: #### L 501.9520, L500.2500, L100.0100 #### [facility] [address] [place], [address] Platelets (Bld) [#/Vol] 296 10*3/uL Normal 150-450 [facility] Comment on above: Performed By: #### L 501.9520, L500.2500, L100.0100 #### [facility] [address] [place], [address] RBC (Bld) [#/Vol] 3.47 10*6/uL Low 4.2-5.4 [facility] Comment on above: Performed By: #### L 501.9520, L500.2500, L100.0100 #### [facility] [address] [place], [address] RDW SD 50.5 fl High 35.1-43.9 [facility] Comment on above: Performed By: #### L 501.9520, L500.2500, L100.0100 #### [facility] [address] [place], [address] WBC (Bld) [#/Vol] 6.9 10*3/uL Normal 4.4-11.0 [facility] Comment on above: Performed By: #### L 501.9520, L500.2500, L100.0100 #### [facility] [address] [place], [address] CTA Chest W/WO Contraston CTA Chest W/WO Contrast [facility] Imaging Services [address] [place] [address] CTA Chest W/WO Contrast MR#: [id number] Acct: [id number] Name: NESTOR MONTES DE OCA Donato Rep #: [id number] : 1935 F 89 From: Shane Chiu MD PCP: Dr. Waqas Scott MD Status: ADM IN Study: CTA Chest W/WO Contrast Date of Exam: 10/02/24 Exam# [id number] Ordering Dr: Dedrick Mckeon MD PROCEDURE: CTA CHEST W/WO CONTRAST 10/02/2024 REASON FOR EXAM: LEFT-SIDED PLEURITIC CHEST PAIN TECHNIQUE: CTA CHEST W/WO CONTRAST Multiplanar Sagittal and Coronal images were obtained. CONTRAST: Isovue 370 VOLUME: 100 mL One or more dose reduction techniques were used (e.g., Automated exposure control, adjustment of the mA and/or kV according to patient size, use of iterative reconstruction technique). RADIATION DOSE SUMMARY: CTDlvol: 26.58 mGy DLP: 393.76 mGycm COMPARISON: 2021 # of known CTs in the past 12 months: 0 # of known Cardiac Nuclear Medicine Studies in the past 12 months: 0 FINDINGS: No filling defects are identified within the pulmonary arteries to suspect PE. Peripheral calcifications in the thoracic aorta without aneurysm or dissection. Lung windows show diffuse interstitial edema in both lung melendez with free-flowing bilateral pleural effusions, onvj-tzusoll-meez-right, and bibasilar atelectasis suggesting CHF. There is cardiomegaly with calcified coronary vessels. No suspicious axillary, mediastinal or perihilar adenopathy. Stable low-density nodules in the thyroid gland. The esophagus is mildly dilated proximally and fluid-filled distally suggesting there may be motility issues. There is no significant hiatal hernia. Limited cuts through the upper abdomen show diffuse fatty infiltration of the liver and atherosclerotic calcifications. Bony structures show osteopenia with an exaggerated dorsal kyphotic curvature and extensive degenerative changes. No acute fracture or suspicious osseous lesion CT/CTA Chest W/WO Contrast IMPRESSION: No demonstrated PE, or thoracic aortic aneurysm or dissection Diffuse interstitial edema in both lung melendez with free-flowing bilateral pleural effusions and bibasilar atelectasis consistent with CHF Cardiomegaly with calcified coronary vessels No suspicious adenopathy Degenerative bony changes Diffuse atherosclerosis Reading Location: [facility] CC: Dr. Dedrick Mckeon MD; Dr. Waqas Scott MD City Carrier Assistant: Signed Normal [facility] Echocardiogram study reportO rdered By: Maame Damon on 10-02-2024 Study report [facility] [address] [place] [address] Echo Complete 10/02/24614 MR#: [id number] Acct: [id number] Name: NESTOR MONTES DE OCA I Rep #:[id number] : 1935 89 From: Maame Damon MD Attending Dr: Dr. Dedrick Mckeon MD Status: ADM IN Ordering Dr: Dedrick Mckeon MD Date: Location: [facility] Sex: F C Admitted: 10/01/24 Reason For Study Reason For Study: CONGESTIVE HEART FAILURE Procedure This was a 2D Doppler, Color Flow transthoracic echocardiogram. The patient was scanned supine. Exam performed portable in patient room. Left Ventricle The estimated ejection fraction is 55???60 %. Right Ventricle Normal right ventricle. Normal systolic function. Atria The left atrium is moderately enlarged. The right atrium is moderately enlarged. Mitral Valve There is mild mitral annular calcification. Moderate (2+) eccentric mitral valveinsufficiency. Tricuspid Valve Normal tricuspid valve. Mild (1+) tricuspid valve insufficiency. Aortic Valve Trisinus/trileaflet aortic valve. Pulmonic Valve The pulmonic valve is not well visualized. Great Vessels The aortic root is not well visualized. MMode/2D Measurements & Calculations LVIDd: 4.7 cm IVSd: 1.0 cm LVOT diam: 2.0 cm LVIDs: 2.5 cm LVPWd: 1.0 cm LVOT area: 3.0 cm2 RVDd: 4.1 cm FS: 46.7 % ___ asc Aorta Diam: 3.2 cm LAV(MOD-bp): 47.1 ml LVAd ap4: 17.1 cm2 LAV(MOD-bp) Indexed: 28.9 ml/m2 LVLd ap4: 6.2 cm LAV(MOD-sp2): 48.9 ml EDV(MOD-sp4): 40.2 ml LAV(MOD-sp4): 41.5 ml EDV(sp4-el): 39.9 ml LVAs ap4: 9.3 cm2 LVLs ap4: 5.2 cm ESV(MOD-sp4): 13.8 ml ESV(sp4-el): 14.1 ml EF(MOD-sp4): 65.8 % EF(sp4-el): 64.8 % SV(MOD-sp4): 26.5 ml SV(MOD-sp2): 25.2 ml LVAd ap2: 17.0 cm2 LVLd ap2: 6.4 cm SI(MOD-sp4): 16.2 ml/m2 SI(MOD-sp2): 15.5 ml/m2 EDV(MOD-sp2): 38.6 ml EDV(sp2-el): 38.7 ml LVAs ap2: 9.4 cm2 LVLs ap2: 5.7 cm ESV(MOD-sp2): 13.4 ml ESV(sp2-el): 13.1 ml EF(MOD-sp2): 65.3 % __ SV(sp4-el): 25.9 ml Ao sinus diam: 2.[address] Junction: 2.3 cm __ LA A4 area: 16.2 cm2 LA dimension(2D): 4.2 cm RA A4 area: 12.4 cm2 __ TAPSE: 1.4 cm Time Measurements MV dec time: 0.17 sec Doppler Measurements & Calculations MV E max lilly: 120.5 cm/sec Ao V2 max: 142.1 cm/sec LV V1 max: 94.5 cm/sec Ao max P.1 mmHg LV V1 max P.6 mmHg Ao V2 mean: 112.9 cm/sec LV V1 mean P.2 mmHg Ao mean P.3 mmHg LV V1 mean: 73.2 cm/sec Ao V2 VTI: 35.1 cm LV V1 VTI: 23.2 cm AV (velocity ratio): 0.66 DELBERT(I,D): 2.0 cm2 DELBERT(V,D): 2.0 cm2 SV(LVOT): 69.6 ml PA V2 max: 70.8 cm/sec TR max lilly: 340.3 cm/sec TR max P.3 mmHg ECHO/Echo Complete Interpretation Summary The estimated ejection fraction is 55???60 %. Normal LV systolic function Moderate mitral regurgitation Mild tricuspid regurgitation. In comparison to previous echocardiogram MR is moderate. No pericardial effusion. Ordering Physician: Dedrick Mckeon Referring Physician: Waqas Scott Performed By: Earline Cosme SOTO 10/02/24 1200 Date _ Maame Damon MD CC: Dr. Dedrick Mckeon MD; Dr. Waqas Scott MD ~ Date Dictated: 10/02/24 0615 Date Transcribed: 10/02/24 1200 City Carrier Assistant: Signed [facility] Work Phone: Electrocardiogram reportOrde red By: Luis Fernando Garza on 10-02-2024 EKG study [facility] Cardiovascular Services [address] [place] [address] 12 Lead EKG 10/01/24 1104 MR#: [id number] Acct: [id number] Name: NESTOR MONTES DE OCA I Rep #:[id number] : 1935 89 From: Luis Fernando Garza MD Attending Dr: Dr. Dedrick Mckeon MD Status: ADM IN Ordering Dr: Renzo Ward MD Date: Location: [facility] Sex: F C Admitted: 10/01/24 Test Reason : WEAKNESS Blood Pressure : */* mmHG Vent. Rate : 94 BPM Atrial Rate : * BPM P-R Int : * ms QRS Dur : 86 ms QT Int : 372 ms P-R-T Axes : * 37 -12 degrees QTcB Int : 465 ms Atrial fibrillation Nonspecific T wave abnormality Abnormal ECG Confirmed by LUIS FERNANDO GARZA MD ([id number]), content editor MARCUS VARELA ([id number]) on 10/02/2024 1:40:49 PM Referred By: Confirmed By: LUIS FERNANDO GARZA MD 10/02/24 1340 Date _ Luis Fernando Garza MD CC: Dr. Renzo Ward MD; Dr. Dedrick Mckeon MD; Dr. Waqas Scott MD ~ Signed [facility] Other Phone: Magnesiumon 10-02-2024 Magnesium [Mass/Vol] 1.7 mg/dL Normal 1.5-2.2 [facility] Comment on above: Performed By: #### L 501.9520, L500.2500, L100.0100 #### [facility] Laboratory [address] [place], [address] Magnesium measurement (mass/ volume)Ordered By: Dedrick Mckeon on 10-02-2024 Magnesium (Unsp spec) [Mass/Vol] 1.7 mg/dL 1.5-2.2 [facility] Phosphoruson 10-02-2024 Phosphate [Mass/Vol] 4.4 mg/dL Normal 2.7-4.5 [facility] Comment on above: Performed By: #### L 501.9520, L500.2500, L100.0100 #### [facility] [address] [place], [address] 12 Lead EKGon 10-01-2024 12 Lead EKG [facility] Cardiovascular Services [address] [place] [address] 12 Lead EKG 10/01/24 1104 MR#: [id number] Acct: [id number] Name: NESTOR MONTES DE OCA I Rep #: [id number] : 1935 89 From: Luis Fernando Garza MD Attending Dr: Dr. Dedrick Mckeon MD Status: ADM IN Ordering Dr: Renzo Ward MD Date: 10/01/24 Location: [facility] Sex: F C Admitted: 10/01/24 Test Reason : WEAKNESS Blood Pressure : */* mmHG Vent. Rate : 94 BPM Atrial Rate : * BPM P-R Int : * ms QRS Dur : 86 ms QT Int : 372 ms P-R-T Axes : * 37 -12 degrees QTcB Int : 465 ms Atrial fibrillation Nonspecific T wave abnormality Abnormal ECG Confirmed by KAYLA KINNEY, LUIS FERNANDO ([id number]), content editor MARCUS VARELA ([id number]) on 10/02/2024 1:40:49 PM Referred By: Confirmed By: LUIS FERNANDO GARZA MD 10/02/24 1340 Date Luis Fernando Garza MD CC: Dr. Renzo Ward MD; Dr. Dedrick Mckeon MD; Dr. Waqas Scott MD Signed Normal [facility] Absolute lymphocyte countOrd ered By: Renzo Ward on 10-01-2024 Lymphocytes Auto (Unsp spec) [#/Vol] 0.76 10*3/uL Low 0.83-4.51 [facility] Absolute neutrophil countOrd ered By: Renzo Ward on 10-01-2024 Neutrophils (Bld) [#/Vol] 7.4 10*3/uL 2.0-7.7 [facility] Anion gap in Serum or Plasma Ordered By: Renzo Ward on 10-01-2024 Anion gap [Moles/Vol] 14 mmol/L 5-15 [facility] Automated blood erythrocyte countOrdered By: Renzo Ward on 10-01-2024 RBC (Bld) [#/Vol] 3.72 10*6/uL Low 4.2-5.4 [facility] Comment on above: Performed By: #### L 503.2682, L500.2500, L100.0100 #### [facility] Laboratory [address] [place], [place] [address]all [employer] [facility] [place], [place], [id number] Automated blood hematocrit ( percentage)Ordered By: Renzo Ward on 10-01-2024 Hematocrit (Bld) [Volume fraction] 34.1 % Low 37-47 [facility] Comment on above: Performed By: #### L 503.7505, L500.2500, L100.0100 #### [facility] Laboratory [address] [place], [address] Automated lymphocyte count a s percentage of total leukocytesOrdered By: Renzo Ward on 10-01-2024 Lymphocytes/100 WBC Auto (Unsp spec) 8.3 % Low 19-41 [facility] BUN/creatinine ratioOrdered By: Renzo Ward on 10-01-2024 Urea nitrogen/Creatinine [Mass ratio] 22.9 mg/mg High 10-20 [facility] Basic Metabolic Profile (BMP )on 10-01-2024 BUN/CRE 22.9 RATIO High 10-20 [facility] Comment on above: Performed By: #### L 503.7505, L500.2500, L100.0100 #### [facility] Laboratory [address] [place], [address] ECRCL 28.48 ml/min Low 50-250 [facility] Comment on above: Performed By: #### L 503.7505, L500.2500, L100.0100 #### [facility] [address] [place], [address] GAP 14 Normal 5-15 [facility] Comment on above: Performed By: #### L 503.7505, L500.2500, L100.0100 #### [facility] [address] [place], [address] Potassium [Moles/Vol] 4.1 mmol/L Normal 3.3-5.1 [facility] Comment on above: Performed By: #### L 503.7505, L500.2500, L100.0100 #### [facility] [address] [place], [address] Basophil percentageOrdered B y: Renzo Ward on 10-01-2024 Basophils/100 WBC (Bld) 0.7 % Normal 0-1 [facility] Comment on above: Performed By: #### L 503.7505, L500.2500, L100.0100 #### [facility] [address] [place], [address] Bilirubin Test strip Ql (U)O rdered By: Renzo Ward on 10-01-2024 Bilirubin Ql (U) Negative Negative [facility] CBC W/Diff, Automatedon 07- Absolute Lymph 0.76 X10 3/uL Low 0.83-4.51 [facility] Comment on above: Performed By: #### L 503.7505, L500.2500, L100.0100 #### [facility] [address] [place], [address] Absolute Neut 7.4 X10 3/uL Normal 2.0-7.7 [facility] Comment on above: Performed By: #### L 503.7505, L500.2500, L100.0100 #### [facility] [address] [place], [address] IG% 0.500 Normal 0.0-0.9 [facility] Comment on above: Result Comment: IG% - Immature Granulocytes (promyelocytes, myelocytes and metamyelocytes) > 1% indicates that a LEFT SHIFT is Present. Performed By: #### L 503.7505, L500.2500, L100.0100 #### [facility] [address] [place], [address] Lymphocytes/100 WBC (Bld) 8.3 % Low 19-41 [facility] Comment on above: Performed By: #### L 503.7505, L500.2500, L100.0100 #### [facility] [address] [place], [address] Nucleated RBC (Bld) [#/Vol] 0 10*3/uL Normal 0-5 [facility] Comment on above: Performed By: #### L 503.7505, L500.2500, L100.0100 #### [facility] [address] [place], [address] RDW SD 51.1 fl High 35.1-43.9 [facility] Comment on above: Performed By: #### L 503.7505, L500.2500, L100.0100 #### [facility] [address] [place], [address] Carbon dioxide, total [Moles /volume] in Central venous bloodOrdered By: Renzo Ward on 10-01-2024 CO2 [Moles/Vol] 20.6 mmol/L Low 21.0-32.0 [facility] Comment on above: Performed By: #### L 503.7505, L500.2500, L100.0100 #### [facility] Laboratory [address] [place], [address] Chest 1 View (Portable)on Chest 1 View (Portable) [facility] Imaging Services [address] [place] [address] Chest 1 View (Portable) MR#: [id number] Acct: [id number] Name: NESTOR MONTES DE OCA I Rep #: [id number] : 1935 F 89 From: Shane Chiu MD PCP: Dr. Waqas Scott MD Status: REG ER Study: Chest 1 View (Portable) Date of Exam: 10/01/24 Exam# [id number] Ordering Dr: Renzo Ward MD PROCEDURE: CHEST [...] Follow-up recommended to ensure resolution Reading Location: [id number] CC: Dr. Renzo Ward MD; Dr. Waqas Scott MD City Carrier Assistant: Signed Normal [facility] Chloride assayOrdered By: Alcon Ward on 10-01-2024 Chloride [Moles/Vol] 100 mmol/L Normal 98-108 [facility] Comment on above: Performed By: #### L 503.7505, L500.2500, L100.0100 #### [facility] Laboratory [address] [place], [address] Echo Completeon 10-01-2024 Echo Complete [facility] Cardiovascular Services [address] [place] [address] Echo Complete 10/02/24 0615 MR#: [id number] Acct: [id number] Name: NESTOR MONTES DE OCA I Rep #: [id number] : 1935 89 From: Maame Damon MD Attending Dr: Dr. Dedrick Mckeon MD Status: ADM IN Ordering Dr: Dedrick Mckeon MD Date: 10/01/24 Location: U Sex: F C Admitted: 10/01/24 Reason For Study Reason For Study: CONGESTIVE HEART FAILURE Procedure This was a 2D Doppler, Color Flow transthoracic echocardiogram. The patient was scanned supine. Exam performed portable in patient room. Left Ventricle The estimated ejection fraction is 55???60 %. Right Ventricle Normal right ventricle. Normal systolic function. Atria The left atrium is moderately enlarged. The right atrium is moderately enlarged. Mitral Valve There is mild mitral annular calcification. Moderate (2+) eccentric mitral valve insufficiency. Tricuspid Valve Normal tricuspid valve. Mild (1+) tricuspid valve insufficiency. Aortic Valve Trisinus/trileaflet aortic valve. Pulmonic Valve The pulmonic valve is not well visualized. Great Vessels The aortic root is not well visualized. MMode/2D Measurements Calculations LVIDd: 4.7 cm IVSd: 1.0 cm LVOT diam: 2.0 cm LVIDs: 2.5 cm LVPWd: 1.0 cm LVOT area: 3.0 cm2 RVDd: 4.1 cm FS: 46.7 % asc Aorta Diam: 3.2 cm LAV(MOD-bp): 47.1 ml LVAd ap4: 17.1 cm2 LAV(MOD-bp) Indexed: 28.9 ml/m2 LVLd ap4: 6.2 cm LAV(MOD-sp2): 48.9 ml EDV(MOD-sp4): 40.2 ml LAV(MOD-sp4): 41.5 ml EDV(sp4-el): 39.9 ml LVAs ap4: 9.3 cm2 LVLs ap4: 5.2 cm ESV(MOD-sp4): 13.8 ml ESV(sp4-el): 14.1 ml EF(MOD-sp4): 65.8 % EF(sp4-el): 64.8 % SV(MOD-sp4): 26.5 ml SV(MOD-sp2): 25.2 ml LVAd ap2: 17.0 cm2 LVLd ap2: 6.4 cm SI(MOD-sp4): 16.2 ml/m2 SI(MOD-sp2): 15.5 ml/m2 EDV(MOD-sp2): 38.6 ml EDV(sp2-el): 38.7 ml LVAs ap2: 9.4 cm2 LVLs ap2: 5.7 cm ESV(MOD-sp2): 13.4 ml ESV(sp2-el): 13.1 ml EF(MOD-sp2): 65.3 % SV(sp4-el): 25.9 ml Ao sinus diam: 2.[address] Junction: 2.3 cm LA A4 area: 16.2 cm2 LA dimension(2D): 4.2 cm RA A4 area: 12.4 cm2 TAPSE: 1.4 cm Time Measurements MV dec time: 0.17 sec Doppler Measurements Calculations MV E max lilly: 120.5 cm/sec Ao V2 max: 142.1 cm/sec LV V1 max: 94.5 cm/sec Ao max P.1 mmHg LV V1 max P.6 mmHg Ao V2 mean: 112.9 cm/sec LV V1 mean P.2 mmHg Ao mean P.3 mmHg LV V1 mean: 73.2 cm/sec Ao V2 VTI: 35.1 cm LV V1 VTI: 23.2 cm AV (velocity ratio): 0.66 DELBERT(I,D): 2.0 cm2 DELBERT(V,D): 2.0 cm2 SV(LVOT): 69.6 ml PA V2 max: 70.8 cm/sec TR max lilly: 340.3 cm/sec TR max P.3 mmHg ECHO/Echo Complete Interpretation Summary The estimated ejection fraction is 55???60 %. Normal LV systolic function Moderate mitral regurgitation Mild tricuspid regurgitation. In comparison to previous echocardiogram MR is moderate. No pericardial effusion. Ordering Physician: Dedrick Mckeon Referring Physician: Waqas Scott Performed By: Earline Cosme RDCS 10/02/24 1200 Date Maame Damon MD CC: Dr. Dedrick Mckeon MD; Dr. Waqas Scott MD Date Dictated: 10/02/24 0615 Date Transcribed: 10/02/24 1200 City Carrier Assistant: Signed Normal [facility] Emergency Department Summary on 10-01-2024 Emergency Department Summary [facility] Medical Records Department [address] [place] [address] Emergency Department Summary 10/01/24 MR#: [id number] Acct: [id number] Name: NESTOR MONTES DE OCA I Rep #: [id number] : 1935 89 From: Renzo Ward MD PCP: Dr. Waqas Scott MD Status:REG ER Location: ED HPI History of Present Illness [...] elevated recently over the last 2 weeks, as high as 148 bpm. Sometimes someone 130s. She [...] problems with her heart so she states. [facility] Medical History Wears hearing aid Wears glasses Ambulates with cane DVT (deep venous thrombosis) Non-smoker History of echocardiogram GERD (gastroesophageal reflux disease) Constipation Arthritis Back problem Breast cancer HTN (hypertension) Home Medications ???Medication ???Instructions ???Recorded ???Last Taken ???Type amlodipine 5 mg tablet 10 mg PO DAILY BP 03/05/20 2 02:00 History cholecalciferol (vitamin D3) 50 2,000 unit PO DAILY SUPPLEMENT 06/2001/03/22 History mcg (2,000 unit) capsule cranberry extract-vitamin C 250 2 ea PO DAILY URINARY HEALTH 03/0501/03/22 History mg-60 mg capsule lisinopril 20 mg tablet 20 mg PO DAILY BP 03/05/20 2 02:00 History omeprazole 20 mg delayed 20 mg PO DAILY GERD 03/05/2001/03 History release,disintegrating tablet oxybutynin chloride 5 mg tablet 5 mg PO DAILY BLADDER 12/03/20 10/ 03/22 History denosumab 60 mg/mL subcutaneous 60 mg subcut [id number] 09/20/22 Unk nown History syringe (Prolia) premier protein 30 g PO .every other day 01/29/24 Unkno wn History anastrozole 1 mg tablet 1 mg PO DAILY #90 tabs 07/22/24 Un known Rx ascorbic acid-ascorbate sodium tab PO DAILY 07/22/24 Unknown Hist ory (vitamin C) 500 mg chewable tablet aspirin 81 mg tablet,delayed 81 mg PO .every other day 07/22/24 Unknown History release (Adult Aspirin Regimen) diphenhydramine HCl 25 mg tablet 25 mg PO QHS PRN 07/22/24 Unknown History (Benadryl Allergy) Allergy/AdvReac Type Severity Reaction Status Date / Time sulfamethoxazole (From Allergy Intermediate Dizziness Verified 08/01/24 09:02 Septra) trimethoprim (From ) Allergy Intermediate Dizziness Verified [...] tachycardia ranging from 115 to 132 bpm. Lungs are clear to auscultation bilaterally. Abdomen is soft and nontender with normoactive bowel sounds. Positive bilateral lower extremity swelling/pedal edema noted. Left appears slightly larger than right. Neurovascular intact distally with palpable dorsalis pedis pulses bilaterally. Const Vital Signs: 10/01/24 10:18 10/01/24 10:39 10/01/24 10:42 Temperature 98.6 F Temperature Source Oral Pulse Rate 132 H 115 H Respiratory Rate 27 H 18 Respiratory Effort (more content not included)... Normal [facility] Eosinophil percentageOrdered By: Renzo Ward on 10-01-2024 Eosinophils/100 WBC (Bld) 1.1 % Normal 0-5 [facility] Comment on above: Performed By: #### L 503.7505, L500.2500, L100.0100 #### [facility] Laboratory [address] [place], [place], [address] Erythrocyte distribution wid th ratioOrdered By: Renzo Ward on 10-01-2024 Erythrocyte distribution width (RBC) [Ratio] 15.5 % High 11.6-14.6 [facility] Comment on above: Performed By: #### L 503.7505, L500.2500, L100.0100 #### [facility] Laboratory [address] [place], [address] Erythrocyte distribution wid th standard deviationOrdered By: Renzo Ward on 10-01-2024 Erythrocyte distribution width (RBC) [Ratio] 51.1 fl High 35.1-43.9 [facility] Glomerular filtration rate ( GFR) estimation/1.73 sq m using serum, plasma, or whole bOrdered By: Renzo Ward on 10-01-2024 GFR/1.73 sq M.predicted among non-blacks MDRD (S/P/Bld) [Vol rate/Area] 42 mL/min/{1.73_m2} Low >60 [facility] Comment on above: mL/min/1.73m2 CKD-EP I Creatinine Equation (2020) Result Comment: mL/m in/1.73m2 CKD-EPI Creatinine Equation (2020) Performed By: #### L 503.7505, L500.2500, L100.0100 #### [facility] Laboratory [address] [place], [address] H AND P Exam - [facility] 10-01-2024 H&P Exam - Hospitalist [facility] Medical Records Department [address] [place] [address] H P Exam - Hospitalist 10/01/24 1245 MR#: [id number] Acct: [id number] Name: NESTOR MONTES DE OCA I Rep #: [id number] : 1935 89 From: Dedrick Mckeon MD PCP: Dr. Waqas Scott MD Status:ADM IN [facility] - [facility] General Date of Admission: [...] blood pressure and noticed her heart rate to be around 140. She followed up with her primary care physicians later on in the day, EKG obtained did show A-fib with RVR. Patient was subsequently sent to the emergency department. Imaging studies obtained on admission did show Iinterstitial edema with blunting of both costophrenic angle suggesting associated pleural effusions. Findings suggest pulmonary vascular congestion/CHF though a diffuse inflammatory process could also cause similar findings. Patient was also found to have abnormal urinalysis and on further questioning admitted to experiencing urinary frequency and dysuria. Admitted to monitored bed for further management [facility] Medical History Wears hearing aid Wears glasses Ambulates with cane DVT (deep venous thrombosis) Non-smoker History of echocardiogram GERD (gastroesophageal reflux disease) Constipation Arthritis Back problem Breast cancer HTN (hypertension) Home Medications ???Medication ???Instructions ???Recorded ???Last Taken ???Type amlodipine 5 mg tablet 10 mg PO DAILY BP 03/05/20 2 02:00 History cholecalciferol (vitamin D3) 50 2,000 unit PO DAILY SUPPLEMENT 06/2001/03/22 History mcg (2,000 unit) capsule cranberry extract-vitamin C 250 2 ea PO DAILY URINARY HEALTH 03/0501/03/22 History mg-60 mg capsule lisinopril 20 mg tablet 20 mg PO DAILY BP 03/05/20 2 02:00 History denosumab 60 mg/mL subcutaneous 60 mg subcut [id number] 09/20/22 Unk nown History syringe (Prolia) premier protein 30 g PO .every other day 01/29/24 Unkno wn History anastrozole 1 mg tablet 1 mg PO DAILY #90 tabs 07/22/24 Un known Rx ascorbic acid-ascorbate sodium 1 tab PO DAILY 07/22/24 Unknown Hi story (vitamin C) 500 mg chewable tablet aspirin 81 mg tablet,delayed 81 mg PO .every other day 07/22/24 Unknown History release (Adult Aspirin Regimen) diphenhydramine HCl 25 mg tablet 25 mg PO QHS PRN allergy symptoms 07/22/24 Unknown History (Benadryl Allergy) omeprazole 20 mg capsule,delayed 20 mg PO QHS 10/01/24 Unknown Hist ory release oxybutynin chloride 5 mg 5 mg PO DAILY 10/01/24 Unknown His tory tablet,extended release 24 hr Allergy/AdvReac Type Severity Reaction Status Date / Time sulfamethoxazole (From Allergy Intermediate Dizziness Verified 08/01/24 09:02 Sept) trimethoprim (From ) Allergy Intermediate Dizziness Verified [...] tenderness NEUROLOGIC: denies focal numbness, weakness, tingling MANI (more content not included)... Normal [facility] Hemoglobin measurementOrdere d By: Renzo Ward on 10-01-2024 Hemoglobin (Bld) [Mass/Vol] 10.9 g/dL Low 12.0-15.0 [facility] Comment on above: Performed By: #### L 503.7505, L500.2500, L100.0100 #### [facility] Laboratory [facility] [place], [address] Immature granulocytes/100 WB C Auto (Bld)Ordered By: Renzo Ward on 10-01-2024 Immature granulocytes/100 WBC (Bld) 0.500 % 0.0-0.9 [facility] Comment on above: IG% - Immature Granu locytes (promyelocytes, myelocytes and metamyelocytes) > 1% indicates that a LEFT SHIFT is Present. Ketones Test strip Ql (U)Ord ered By: Renzo Ward on 10-01-2024 Ketones Ql (U) Negative Negative [facility] L503.7505on 10-01-2024 Natriuretic peptide B (Bld) [Mass/Vol] 3284 pg/mL High <=1800 [facility] Comment on above: Result Comment: Hear t Failure Unlikely: < 300 pg/mL Heart Failure Likely < 50 Years: > 450 pg/mL 50-75 Years: > 900 pg/mL >75 Years: > 1800 pg/mL Performed By: #### L 503.7505, L500.2500, L100.0100 #### [facility] Laboratory [address] [place], [address] MCV (mean corpuscular volume ) determinationOrdered By: Renzo Ward on 10-01-2024 MCV (RBC) [Entitic vol] 91.7 fL Normal 81-99 [facility] System Comment on above: Performed By: #### L 503.7505, L500.2500, L100.0100 #### [facility] [address] [place], [place], [id number] (378 Mean corpuscular hemoglobin (MCH) determinationOrdered By: Renzo Ward on 10-01-2024 MCH (RBC) [Entitic mass] 29.3 pg Normal 27.0-32.0 [facility] Comment on above: Performed By: #### L 503.7505, L500.2500, L100.0100 #### [facility] [address] [place], [address] Mean corpuscular hemoglobin concentration (MCHC) determinationOrdered By: Renzo Ward on 10-01-2024 MCHC (RBC) [Mass/Vol] 32.0 g/dL Normal 32-36 [facility] Comment on above: Performed By: #### L 503.7505, L500.2500, L100.0100 #### [facility] [address] [place], [address] Mean platelet volume determi nationOrdered By: Renzo Ward on 10-01-2024 Platelet mean volume (Bld) [Entitic vol] 11.0 fL Normal 6.2-12.0 [facility] Comment on above: Performed By: #### L 503.7505, L500.2500, L100.0100 #### [facility] [address] [place], [address] Microscopic analysis of urin e for red blood cells (RBC)Ordered By: Renzo Ward on 10-01-2024 Microscopic analysis of urine for red blood cells (RBC) 0 SEEN /hpf 0-5 [facility] Monocyte percentageOrdered B y: Renzo Ward on 10-01-2024 Monocytes/100 WBC (Bld) 8.5 % Normal 0-10 [facility] Comment on above: Performed By: #### L 503.7505, L500.2500, L100.0100 #### [facility] [address] [place], [address] Mucus LM Ql (Urine sed)Order ed By: Renzo Ward on 10-01-2024 Mucus Ql (Urine sed) 0 SEEN /hpf [facility] Natriuretic peptide.B prohor brenda N-Terminal [Mass/volume] in Serum or PlasmaOrdered By: Renzo Ward on 10-01-2024 Natriuretic peptide.B prohormone N-Terminal [Mass/Vol] 3284 pg/mL High <1800 [facility] Comment on above: Heart Failure Unlike ly: < 300 pg/mLHeart Failure Likely< 50 Years: > 450 pg/mL50-75 Years: > 900 pg/mL>75 Years: > 1800 pg/mL Neutrophil percentageOrdered By: Renzo Ward on 10-01-2024 Neutrophils/100 WBC (Bld) 80.9 % High 47-70 [facility] Comment on above: Performed By: #### L 503.7505, L500.2500, L100.0100 #### [facility] [address] [facility] [place], [place], [id number] Nitrite Test strip Ql (U)Ord ered By: Renzo Ward on 10-01-2024 Nitrite Ql (U) Positive High Negative [facility] Nucleated red blood cell per centageOrdered By: Renzo Ward on 10-01-2024 Nucleated RBC/100 WBC (Bld) [Ratio] 0 % 0-5 [facility] Platelet countOrdered By: Alcon Ward on 10-01-2024 Platelets (Bld) [#/Vol] 317 10*3/uL Normal 150-450 [facility] Comment on above: Performed By: #### L 503.7505, L500.2500, L100.0100 #### [facility] [address] [place], [address] Potassium measurement (mass/ volume)Ordered By: Renzo Ward on 10-01-2024 Potassium (Unsp spec) [Mass/Vol] 4.1 mmol/L 3.3-5.1 [facility] Protein Test strip Ql (U)Ord ered By: Renzo Ward on 10-01-2024 Protein Ql (U) 30 mg/dl High Negative [facility] Serum creatinine measurement (mass/volume)Ordered By: Renzo Ward on 10-01-2024 Creatinine [Mass/Vol] 1.23 mg/dL High 0.70-1.20 [facility] Comment on above: Performed By: #### L 503.7505, L500.2500, L100.0100 #### [facility] [address] [place], [address] Serum glucose measurement (m ass/volume)Ordered By: Renzo Ward on 10-01-2024 Glucose [Mass/Vol] 86 mg/dL Normal 70-99 [facility] Comment on above: Performed By: #### L 503.7505, L500.2500, L100.0100 #### [facility] [address] [place], [address] Serum or plasma calcium krysten urement (mass/volume)Ordered By: Renzo Ward on 10-01-2024 Calcium [Mass/Vol] 9.3 mg/dL Normal 7.6-11.0 [facility] Comment on above: Performed By: #### L 503.7505, L500.2500, L100.0100 #### [facility] [address] [place], [address] Serum or plasma urea nitroge n measurement (mass/volume)Ordered By: Renzo Ward on 10-01-2024 Urea nitrogen [Mass/Vol] 28 mg/dL High 4-19 [facility] Comment on above: Performed By: #### L 503.7505, L500.2500, L100.0100 #### [facility] [address] [place], [address] Sodium levelOrdered By: Renzo Ward on 10-01-2024 Sodium [Moles/Vol] 134 mmol/L Normal 133-145 [facility] Comment on above: Performed By: #### L 503.7505, L500.2500, L100.0100 #### [facility] [address] [place], [address] Squamous epithelial cells de tection in urine sediment by light microscopyOrdered By: Renzo Ward on 10-01-2024 Epithelial cells.squamous LM Ql (Urine sed) 0 SEEN /hpf 5-10 [facility] TSH DL <= 0.005 mIU/L QnOrde red By: Dedrick Mckeon on 10-01-2024 TSH Qn 2.310 uIU/mL 0.300-4.200 [facility] Thyroid Stim Hormone (TSH)on 10-01-2024 TSH 2.310 uIU/mL Normal 0.300-4.200 [facility] Comment on above: Performed By: #### L 100.0100, L500.2500 #### [facility] [address] [place], [address] Urinalysis, Completeon 10-01 BACTERIA 2+ /hpf Normal None Seen [facility] Comment on above: Order Comment: CLEAN CATCH Performed By: #### L 501.9520, L500.2500, L100.0100 #### [facility] [address] [place], [address] EPI,RENAL 0-5 SEEN Normal 0-5 [facility] Comment on above: Order Comment: CLEAN CATCH Performed By: #### L 501.9520, L500.2500, L100.0100 #### [facility] [address] [place], [address] WBC 10-25 SEEN Normal 0-5 [facility] Comment on above: Order Comment: CLEAN CATCH Performed By: #### L 501.9520, L500.2500, L100.0100 #### [facility] [address] [place], [address] EPI,SQUAMOUS 0 SEEN Normal 5-10 [facility] Comment on above: Order Comment: CLEAN CATCH Performed By: #### L 501.9520, L500.2500, L100.0100 #### [facility] [address] [place], [address] Mucus Ql (Urine sed) 0 SEEN Normal [facility] Comment on above: Order Comment: CLEAN CATCH Performed By: #### L 501.9520, L500.2500, L100.0100 #### [facility] [address] [place], [address] RBC 0 SEEN Normal 0-5 [facility] Comment on above: Order Comment: CLEAN CATCH Performed By: #### L 501.9520, L500.2500, L100.0100 #### [facility] [address] [place], [address] Urine clarityOrdered By: Maryuri Ward on 10-01-2024 Clarity (U) Sl. Cloudy Clear [facility] Urine color determinationOrd ered By: Renzo Ward on 10-01-2024 Color (U) Yellow Yellow [facility] Urine cultureOrdered By: Mark Mckeon on 10-01-2024 Bacteria identified Cx Nom (U) Citrobacter youngae Abnormal [facility] Urine glucose detectionOrder ed By: Renzo Ward on 10-01-2024 Glucose Ql (U) Normal mg/dl Normal [facility] Urine leukocyte esterase det ection by dipstickOrdered By: Renzo Ward on 10-01-2024 Leukocyte esterase Test strip Ql (U) 500 /ul High Negative [facility] Urine pHOrdered By: Renzo sebastian on 10-01-2024 pH (U) 6.0 [pH] 5.0 - 8.0 [facility] Urine sediment bacteria coun t by microscopy (number/high power field)Ordered By: Renzo Ward on 10-01-2024 Bacteria LM.HPF (Urine sed) [#/Area] 2 /[HPF] None Seen [facility] Urine sediment renal epithel ial cell count by microscopy (number/high power field)Ordered By: Renzo Ward on 10-01-2024 Epithelial cells.renal LM.HPF (Urine sed) [#/Area] 0 /[HPF] 0-5 [facility] Urine specific gravity measu rementOrdered By: Renzo Ward on 10-01-2024 Specific gravity (U) [Rel density] 1.015 1.002-1.030 [facility] Urine urobilinogen measureme ntOrdered By: Renzo Ward on 10-01-2024 Urobilinogen Ql (U) Normal mg/dl Normal [facility] Venous Duplex US - Tj Extre mon 10-01-2024 Venous Duplex US - Tj Extrem [facility] [address] [place] [address] Venous Duplex US - Tj Extrem 10/01/24 1108 MR#: [id number] Acct: [id number] Name: NESTOR MONTES DE OCA I Rep #: [id number] : 1935 89 From: Bruce De Jesus MD Attending Dr: Dr. Dedrick Mckeon MD Status: ADM IN Ordering Dr: Renzo Ward MD Date: 10/01/24 Location: U Sex: F C Admitted: 10/01/24 Reason For Study Reason For Study: Bilateral leg swelling RIGHT LEFT GSV is normal. GSV is normal. CFV is compressible, spontaneous, competent and CFV is partially compressible with bright demonstrates pulsatile venous flow. intraluminal echoes consistent with Chronic DVT. FV is compressible, spontaneous, competent and Pulsatile venous flow noted. demonstrates pulsatile venous flow. FV is compressible, spontaneous, competent and FV distal visualized with color only, appear patent. demonstrates pulsatile venous flow. Patient unable to tolerate compression. FV distal visualized with color only, appear patent. POP V is compressible, spontaneous, competent and Patient unable to tolerate compression. demonstrates pulsatile venous flow. POP V is compressible, spontaneous, competent and T/P Trunk is compressible. demonstrates pulsatile venous flow. PTV is compressible. T/P Trunk is compressible. RT PerV is compressible. PTV is compressible. Procedure LT PerV is compressible. This is a venous duplex using B-mode, color flow and spectral Doppler. Exam performed portable in ED. A preliminary report was called and/or faxed to Dr. Ward. VL/Venous Duplex US - Tj Extrem Interpretation Summary Chronic deep vein thrombosis noted in the left common femoral vein. Deep veins of the right lower extremity are patent and compressible segmentally. There is no evidence of right lower extremity deep vein thrombosis. The bilateral great saphenous veins appear patent and compressible segmentally. Ordering Physician: Renzo Ward Referring Physician: Waqas Scott Performed By: Nola Sol RVT 10/01/24 1553 Date Bruce De Jesus MD CC: Dr. Renzo Ward MD; Dr. Dedrick Mckeon MD; Dr. Waqas Scott MD Date Dictated: 10/01/24 1108 Date Transcribed: 10/01/241552 City Carrier Assistant: Signed Normal [facility] Venous duplex ultrasound rep ortOrdered By: Bruce De Jesus on 10-01-2024 US Vein [facility] [address] [place] [address] Venous Duplex US - Tj Extrem 10/01/24 1108 MR#: [id number] Acct: [id number] Name: GHASSAN MONTES DE OCADELLA Sewell Rep #:[id number] : 1935 89 From: Bruce Noriega Attending Dr: Dr. Dedrick Mckeon MD Status: ADM IN Ordering Dr: Renzo Ward MD Date: Location: [facility] Sex: F C Admitted: 10/01/24 Reason For Study Reason For Study: Bilateral leg swelling RIGHT LEFT GSV is normal. GSV is normal. CFV is compressible, spontaneous, competent and CFV is partially compressible with bright demonstrates pulsatile venous flow. intraluminal echoes consistent with Chronic DVT. FV is compressible, spontaneous, competent and Pulsatile venous flow noted. demonstrates pulsatile venous flow. FV is compressible, spontaneous, competent and FV distal visualized with color only, appear patent. demonstrates pulsatile venous flow. Patient unable to tolerate compression. FV distal visualized with color only, appear patent. POP V is compressible, spontaneous, competent and Patient unableto tolerate compression. demonstrates pulsatile venous flow. POP V is compressible, spontaneous, competent and T/P Trunk is compressible. demonstrates pulsatile venous flow. PTV is compressible. T/P Trunk is compressible. RT PerV is compressible. PTV is compressible. Procedure LT PerV is compressible. This is a venous duplex using B-mode, color flow and spectral Doppler. Exam performed portable in ED. A preliminary report was called and/or faxed to Dr. Ward. VL/Venous Duplex US - Tj Extrem Interpretation Summary Chronic deep vein thrombosis noted in the left common femoral vein. Deep veins of the right lower extremity are patent and compressible segmentally.There is no evidence of right lower extremity deep vein thrombosis. The bilateral great saphenous veins appear patent and compressible segmentally. Ordering Physician: Renzo Ward Referring Physician: Waqas Scott Performed By: Nola Sol RVT 10/01/24 1553 Date _ Bruce De Jesus MD CC: Dr. Renzo Ward MD; Dr. Dedrick Mckeon MD; Dr. Waqas Scott MD ~ Date Dictated: 10/01/24 1108 Date Transcribed: 10/01/241552 City Carrier Assistant: Signed [facility] Work Phone: White blood cell (WBC) count Ordered By: Renzo Ward on 10-01-2024 WBC (Bld) [#/Vol] 9.1 10*3/uL Normal 4.4-11.0 [facility] Comment on above: Performed By: #### L 503.7504, L500.2500, L100.0100 #### [facility] [address] [place], [address] White blood cell countOrdere d By: Renzo Ward on 10-01-2024 White blood cell count 10-25 SEEN /hpf 0-5 [facility] Surgery Visit Reporton 08-01 Surgery Visit Report [facility] [address] [place] [address] OFFICE VISIT Date of Service: 08/01/24 MR#: [id number] Acct: [id number] Name: NESTOR MONTES DE OCA I Rep #: [id number] : 1935 Provider: Dr. Zahida scott MD Age/Sex: 89/F Location: [facility] Status: Signed Intake Vital Signs 07/22/24 16:02 [...] (Intermediate, Verified 08/01/24 09:02) Dizziness trimethoprim (From Septra) Allergy (Intermediate, Verified 08/01/24 09:02) Dizziness Penicillins [...] denosumab 60 mg/mL subcutaneous 60 mg subcut [id number] 09/20/2204/27 History syringe (Prolia) premier protein 30 [...] a little while has talked with Dr. Jonh previously who said it was benign subcutaneous [...] or v (more content not included)... Normal [facility] CA 15-3on 07-24-2024 CA 15-3 30.8 U/mL Abnormal 0.0-25.0 [facility] Comment on above: Result Comment: [employer] Electrochemiluminescence Immunoassay (ECLIA) Values obtained with different assay methods or kits cannot be used interchangeably. Results cannot be interpreted as absolute evidence of the presence or absence of malignant disease. Performed at: [address] [id number] Jewelry Jobber: Edy Lovett PhD, Phone: [phone] Performed By: #### L 501.9520, L500.2500, L100.0100 #### [facility] [address] [facility] [place], [place], [address] CA 27.29on 07-24-2024 CA 27.29 30.9 U/mL Normal 0.0-38.6 [facility] Comment on above: Result Comment: PowerReviewsaur Immunochemiluminometric Methodology (ICMA) Values obtained with different assay methods or kits cannot be used interchangeably. Results cannot be interpreted as absolute evidence of the presence or absence of malignant disease. Performed By: #### L 501.9520, L500.2500, L100.0100 #### [facility] [address] [place], [place], [address] Absolute lymphocyte countOrd ered By: Alonzo John on 07-22-2024 Lymphocytes Auto (Unsp spec) [#/Vol] 1.44 10*3/uL 0.83-4.51 [facility] Absolute neutrophil countOrd ered By: Alonzo John on 07-22-2024 Neutrophils (Bld) [#/Vol] 6.0 10*3/uL 2.0-7.7 [facility] Anion gap in Serum or Plasma Ordered By: Alonzo John on 07-22-2024 Anion gap [Moles/Vol] 11 mmol/L 5-15 [facility] Automated lymphocyte count a s percentage of total leukocytesOrdered By: Alonzo John on 07-22-2024 Lymphocytes/100 WBC Auto (Unsp spec) 17.0 % Low 19-41 [facility] BUN/creatinine ratioOrdered By: Alonzo John on 07-22-2024 Urea nitrogen/Creatinine [Mass ratio] 27.6 mg/mg High 10-20 [facility] Basophil percentageOrdered B y: Alonzo John on 07-22-2024 Basophils/100 WBC (Bld) 0.6 % 0-1 [facility] Bilirubin, totalOrdered By: Alonzo John on 07-22-2024 Bilirubin [Mass/Vol] 0.23 mg/dL 0.00-1.30 [facility] CA 15-3Ordered By: Alonzo garcia on 07-22-2024 CA 15-3 30.8 U/mL High 0.0-25.0 [facility] Comment on above: [employer] El ectrochemiluminescence Immunoassay(ECLIA)Values obtained with different assay methods or kits cannotbe used interchangeably. Results cannot be interpreted asabsolute evidence of the presence or absence of malignantdisease.Performed at: [place] [id number] Director: Edy Lovett PhD, Phone: [phone] CA 27.29Ordered By: Alonzo pace on 07-22-2024 CA 27.29 30.9 U/mL 0.0-38.6 [facility] Comment on above: [employer] Ribbonaur Immu nochemiluminometric Methodology (ICMA)Values obtained with different assay methods or kits cannotbe used interchangeably. Results cannot be interpreted asabsolute evidence of the presence or absence of malignantdisease. CBC W/Diff, Automatedon 07-03 Absolute Lymph 1.44 X10 3/uL Normal 0.83-4.51 [facility] Comment on above: Performed By: #### L 501.9520, L500.2500, L100.0100 #### [facility] [address] [place], [address] Absolute Neut 6.0 X10 3/uL Normal 2.0-7.7 [facility] Comment on above: Performed By: #### L 501.9520, L500.2500, L100.0100 #### [facility] [address] [place], [address] Basophils/100 WBC (Bld) 0.6 % Normal 0-1 [facility] Comment on above: Performed By: #### L 501.9520, L500.2500, L100.0100 #### [facility] [address] [place], [address] Eosinophils/100 WBC (Bld) 2.0 % Normal 0-5 [facility] Comment on above: Performed By: #### L 501.9520, L500.2500, L100.0100 #### [facility] [address] [place], [address] Erythrocyte distribution width (RBC) [Ratio] 14.0 % Normal 11.6-14.6 [facility] Comment on above: Performed By: #### L 501.9520, L500.2500, L100.0100 #### [facility] [address] [place], [address] Hematocrit (Bld) [Volume fraction] 36.6 % Low 37-47 [facility] Comment on above: Performed By: #### L 501.9520, L500.2500, L100.0100 #### [facility] [address] [place], [address] Hemoglobin (Bld) [Mass/Vol] 11.9 g/dL Low 12.0-15.0 [facility] Comment on above: Performed By: #### L 501.9520, L500.2500, L100.0100 #### [facility] [address] [place], [address] IG% 0.500 Normal 0.0-0.9 [facility] Comment on above: Result Comment: IG% - Immature Granulocytes (promyelocytes, myelocytes and metamyelocytes) > 1% indicates that a LEFT SHIFT is Present. Performed By: #### L 501.9520, L500.2500, L100.0100 #### [facility] [address] [place], [address] Lymphocytes/100 WBC (Bld) 17.0 % Low 19-41 [facility] Comment on above: Performed By: #### L 501.9520, L500.2500, L100.0100 #### [facility] [address] [place], [address] MCH (RBC) [Entitic mass] 29.1 pg Normal 27.0-32.0 [facility] Comment on above: Performed By: #### L 501.9520, L500.2500, L100.0100 #### [facility] [address] [place], [address] MCHC (RBC) [Mass/Vol] 32.5 g/dL Normal 32-36 [facility] Comment on above: Performed By: #### L 501.9520, L500.2500, L100.0100 #### [facility] [address] [place], [address] MCV (RBC) [Entitic vol] 89.5 fL Normal 81-99 [facility] Comment on above: Performed By: #### L 501.9520, L500.2500, L100.0100 #### [facility] [address] [place], [address] Monocytes/100 WBC (Bld) 9.6 % Normal 0-10 [facility] Comment on above: Performed By: #### L 501.9520, L500.2500, L100.0100 #### [facility] [address] [place], [address] Neutrophils/100 WBC (Bld) 70.3 % High 47-70 [facility] Comment on above: Performed By: #### L 501.9520, L500.2500, L100.0100 #### [facility] [address] [place], [address] Nucleated RBC (Bld) [#/Vol] 0 10*3/uL Normal 0-5 [facility] Comment on above: Performed By: #### L 501.9520, L500.2500, L100.0100 #### [facility] [address] [place], [address] Platelet mean volume (Bld) [Entitic vol] 11.2 fL Normal 6.2-12.0 [facility] Comment on above: Performed By: #### L 501.9520, L500.2500, L100.0100 #### [facility] [address] [place], [address] Platelets (Bld) [#/Vol] 283 10*3/uL Normal 150-450 [facility] Comment on above: Performed By: #### L 501.9520, L500.2500, L100.0100 #### [facility] [address] [place], [address] RBC (Bld) [#/Vol] 4.09 10*6/uL Low 4.2-5.4 [facility] Comment on above: Performed By: #### L 501.9520, L500.2500, L100.0100 #### [facility] [address] [place], [address] RDW SD 45.7 fl High 35.1-43.9 [facility] Comment on above: Performed By: #### L 501.9520, L500.2500, L100.0100 #### [facility] [address] [place], [address] WBC (Bld) [#/Vol] 8.5 10*3/uL Normal 4.4-11.0 [facility] Comment on above: Performed By: #### L 501.9520, L500.2500, L100.0100 #### [facility] [address] [place], [address] Carbon dioxide, total [Moles /volume] in Central venous bloodOrdered By: Alonzo John on 07-22-2024 CO2 [Moles/Vol] 23.2 mmol/L 21.0-32.0 [facility] Cerv Spine 2 or 3 Viewson Cerv Spine 2 or 3 Views [facility] Services [address] [place], [place] [address] Cerv Spine 2 or 3 Views MR#: [id number] Acct: [id number] Name: NESTOR MONTES DE OCA I Rep #: [id number] : 1935 F 89 From: Bruce Evans MD PCP: Dr. Waqas Scott MD Status: REG RCR Study: Cerv Spine 2 or 3 Views Date of Exam: 07/22/24 Exam# [id number] Ordering Dr: Alonzo John MD PROCEDURE: CERV [...] Alonzo John MD; Dr. Waqas Scott MD City Carrier Assistant: Signed Normal [facility] Chloride assayOrdered By: Negar John on 07-22-2024 Chloride [Moles/Vol] 101 mmol/L 98-108 [facility] Comprehensive Metabolic Prof ilon 07-22-2024 Albumin [Mass/Vol] 3.9 g/dL Normal 3.4-4.8 [facility] Comment on above: Performed By: #### L 501.0419, L500.2500, L100.0100 #### [facility] [address] [place], [place], [address] Albumin/Globulin [Mass ratio] 1.1 {ratio} Normal 0.9-2.4 [facility] Comment on above: Performed By: #### L 501.9520, L500.2500, L100.0100 #### [facility] [address] [place], [address] ALK PHOS 71 U/L Normal 35-104 [facility] Comment on above: Performed By: #### L 501.9520, L500.2500, L100.0100 #### [facility] [address] [place], [address] ALT [Catalytic activity/Vol] 5 U/L Normal <=34 [facility] Comment on above: Performed By: #### L 501.9520, L500.2500, L100.0100 #### [facility] [address] [place], [address] AST [Catalytic activity/Vol] 20 U/L Normal <=31 [facility] Comment on above: Performed By: #### L 501.9520, L500.2500, L100.0100 #### [facility] [address] [place], [address] Bilirubin [Mass/Vol] 0.23 mg/dL Normal 0.00-1.30 [facility] Comment on above: Performed By: #### L 501.9520, L500.2500, L100.0100 #### [facility] [address] [place], [address] BUN/CRE 27.6 RATIO High 10-20 [facility] Comment on above: Performed By: #### L 501.9520, L500.2500, L100.0100 #### [facility] [address] [place], [address] Calcium [Mass/Vol] 9.6 mg/dL Normal 7.6-11.0 [facility] Comment on above: Performed By: #### L 501.9520, L500.2500, L100.0100 #### [facility] [address] [place], [address] Chloride [Moles/Vol] 101 mmol/L Normal 98-108 [facility] Comment on above: Performed By: #### L 501.9520, L500.2500, L100.0100 #### [facility] [address] [place], [address] CO2 [Moles/Vol] 23.2 mmol/L Normal 21.0-32.0 [facility] Comment on above: Performed By: #### L 501.9520, L500.2500, L100.0100 #### [facility] [address] [place], [address] Creatinine [Mass/Vol] 1.14 mg/dL Normal 0.70-1.20 [facility] Comment on above: Performed By: #### L 501.9520, L500.2500, L100.0100 #### [facility] [address] [place], [address] ECRCL 29.30 ml/min Low 50-250 [facility] Comment on above: Performed By: #### L 501.9520, L500.2500, L100.0100 #### [facility] [address] [place], [address] GAP 11 Normal 5-15 [facility] Comment on above: Performed By: #### L 501.9520, L500.2500, L100.0100 #### [facility] [address] [place], [address] GFR/1.73 sq M.predicted among non-blacks MDRD (S/P/Bld) [Vol rate/Area] 46 mL/min/{1.73_m2} Low >60 [facility] Comment on above: Result Comment: mL/m in/1.73m2 CKD-EPI Creatinine Equation (2020) Performed By: #### L 501.9520, L500.2500, L100.0100 #### [facility] [address] [place], [address] Globulin (S) [Mass/Vol] 3.5 g/dL Normal 2.2-4.2 [facility] Comment on above: Performed By: #### L 501.9520, L500.2500, L100.0100 #### [facility] [address] [place], [address] Glucose [Mass/Vol] 118 mg/dL High 70-99 [facility] Comment on above: Performed By: #### L 501.9520, L500.2500, L100.0100 #### [facility] [address] [place], [address] Potassium [Moles/Vol] 4.8 mmol/L Normal 3.3-5.1 [facility] Comment on above: Performed By: #### L 501.9520, L500.2500, L100.0100 #### [facility] [address] [place], [address] Sodium [Moles/Vol] 136 mmol/L Normal 133-145 [facility] Comment on above: Performed By: #### L 501.9520, L500.2500, L100.0100 #### [facility] [address] [place], [address] T PROT 7.4 g/dL Normal 5.9-8.4 [facility] Comment on above: Performed By: #### L 501.9520, L500.2500, L100.0100 #### [facility] [address] [place], [address] Urea nitrogen [Mass/Vol] 32 mg/dL High 4-19 [facility] Comment on above: Performed By: #### L 501.9520, L500.2500, L100.0100 #### [facility] [address] [place], [address] Eosinophil percentageOrdered By: [facility] on 07-22-[facility] Eosinophils/100 WBC (Bld) 2.0 % 0-5 [facility] Erythrocyte distribution wid th ratioOrdered By: [facility] on 07-22-2024 Erythrocyte distribution width (RBC) [Ratio] 14.0 % 11.6-14.6 [facility] Erythrocyte distribution wid th standard deviationOrdered By: [facility] on 07-22-2024 Erythrocyte distribution width (RBC) [Ratio] 45.7 fl High 35.1-43.9 [facility] Glomerular filtration rate ( GFR) estimation/1.73 sq m using serum, plasma, or whole bOrdered By: [facility] on 07-22-2024 GFR/1.73 sq M.predicted among non-blacks MDRD (S/P/Bld) [Vol rate/Area] 46 mL/min/{1.73_m2} Low >60 [facility] Comment on above: mL/min/1.73m2 CKD-EP I Creatinine Equation (2020) Hematocrit Auto (Bld) [Volum e fraction]Ordered By: [facility] on 07-22-2024 Hematocrit (Bld) [Volume fraction] 36.6 % Low 37-47 [facility] Hemoglobin measurementOrdere d By: [facility] on 07-22-2024 Hemoglobin (Bld) [Mass/Vol] 11.9 g/dL Low 12.0-15.0 [facility] Immature granulocytes/100 WB C Auto (Bld)Ordered By: [facility] on 07-22-2024 Immature granulocytes/100 WBC (Bld) 0.500 % 0.0-0.9 [facility] Comment on above: IG% - Immature Granu locytes (promyelocytes, myelocytes and metamyelocytes) > 1% indicates that a LEFT SHIFT is Present. LDHon 07-22-2024 LDH 145 U/L Normal 84-246 [facility] Comment on above: Order Comment: 1 Performed By: #### L 501.9584, L500.2500, L100.0100 #### [facility] [address] [place], [address] Laboratory - Chemistry and C hemistry - challengeOrdered By: Alonzo John on 07-22-2024 AST [Catalytic activity/Vol] 20 U/L <32 [facility] Lactate dehydrogenase (LDH) measurementOrdered By: Alonzo John on 07-22-2024 LDH [Catalytic activity/Vol] 145 U/L 84-246 [facility] MCV (mean corpuscular volume ) determinationOrdered By: Alonzo John on 07-22-2024 MCV (RBC) [Entitic vol] 89.5 fL 81-99 [facility] Mean corpuscular hemoglobin (MCH) determinationOrdered By: Alonzo John on 07-22-2024 MCH (RBC) [Entitic mass] 29.1 pg 27.0-32.0 [facility] Mean corpuscular hemoglobin concentration (MCHC) determinationOrdered By: Alonzo John on 07-22-2024 MCHC (RBC) [Mass/Vol] 32.5 g/dL 32-36 [facility] Mean platelet volume determi nationOrdered By: Alonzo John on 07-22-2024 Platelet mean volume (Bld) [Entitic vol] 11.2 fL 6.2-12.0 [facility] Monocyte percentageOrdered B y: Alonzo John on 07-22-2024 Monocytes/100 WBC (Bld) 9.6 % 0-10 [facility] Neutrophil percentageOrdered By: Alonzo John on 07-22-2024 Neutrophils/100 WBC (Bld) 70.3 % High 47-70 [facility] Nucleated red blood cell per centageOrdered By: Alonzo John on 07-22-2024 Nucleated RBC/100 WBC (Bld) [Ratio] 0 % 0-5 [facility] Oncology Visit Reporton 07-03 Oncology Visit Report [facility] [place] [facility] [address] [place] [address] OFFICE VISIT Date of Service: 07/22/24 1602 MR#: [id number] Acct: [id number] Name: NESTOR MONTES DE OCA I Rep #: [id number] : 1935 From: Alonzo John MD Age/Sex: 89/F [place] [facility] [place] Status: Signed HPI Subjective Date of [...] which is stable. Feels well. [facility] Medical History Wears hearing aid [...] denosumab 60 mg/mL subcutaneous 60 mg subcut [id number] 09/20/22 History syringe (Prolia) premier protein 30 [...] the pas (more content not included)... Normal [facility] Platelet countOrdered By: Negar John on 07-22-2024 Platelets (Bld) [#/Vol] 283 10*3/uL 150-450 [facility] Potassium measurement (mass/ volume)Ordered By: Alonzo John on 07-22-2024 Potassium (Unsp spec) [Mass/Vol] 4.8 mmol/L 3.3-5.1 [facility] RBC Auto (Bld) [#/Vol]Ordere d By: Alonzo John on 07-22-2024 RBC (Bld) [#/Vol] 4.09 10*6/uL Low 4.2-5.4 [facility] Serum creatinine measurement (mass/volume)Ordered By: Alonzo John on 07-22-2024 Creatinine [Mass/Vol] 1.14 mg/dL 0.70-1.20 [facility] Serum globulin measurementOr dered By: Alonzo John on 07-22-2024 Globulin (S) [Mass/Vol] 3.5 g/dL 2.2-4.2 [facility] Serum glucose measurement (m ass/volume)Ordered By: Alonzo John on 07-22-2024 Glucose [Mass/Vol] 118 mg/dL High 70-99 [facility] Serum or plasma alanine salazar otransferase (ALT) measurementOrdered By: Alonzo John on 07-22-2024 ALT [Catalytic activity/Vol] 5 U/L <35 [facility] Serum or plasma albumin krysten urement (mass/volume)Ordered By: Alonzo John on 07-22-2024 Albumin [Mass/Vol] 3.9 g/dL 3.4-4.8 [facility] Serum or plasma albumin/glob ulin mass ratioOrdered By: Alonzo John on 07-22-2024 Albumin/Globulin [Mass ratio] 1.1 {ratio} 0.9-2.4 [facility] Serum or plasma alkaline ewelina sphatase measurementOrdered By: Alonzo John on 07-22-2024 ALP [Catalytic activity/Vol] 71 U/L 35-104 [facility] Serum or plasma calcium krysten urement (mass/volume)Ordered By: Alonzo John on 07-22-2024 Calcium [Mass/Vol] 9.6 mg/dL 7.6-11.0 [facility] Serum or plasma urea nitroge n measurement (mass/volume)Ordered By: Alonzo John on 07-22-2024 Urea nitrogen [Mass/Vol] 32 mg/dL High 4-19 [facility] Sodium levelOrdered By: Niels John on 07-22-2024 Sodium [Moles/Vol] 136 mmol/L 133-145 [facility] Total proteinOrdered By: Les John on 07-22-2024 Protein [Mass/Vol] 7.4 g/dL 5.9-8.4 [facility] White blood cell (WBC) count Ordered By: Alonzo John on 07-22-2024 WBC (Bld) [#/Vol] 8.5 10*3/uL 4.4-11.0 [facility] Urine Cultureon 07-17-2024 [facility] Presumptive E. coli [place] Count >100,000 Presumptive E. coli: REACTION Ampicillin [...] TMP SMX Islt CARLOS <=20 S Normal [facility] Comment on above: Performed By: #### L 100.0100, L500.2500 #### [facility] [address] [place], [address] Bilirubin Test strip Ql (U)O rdered By: Waqas Scott on 07-15-2024 Bilirubin Ql (U) Negative Negative [facility] Glucose Ql (U)Ordered By: Chandra Scott on 07-15-2024 Urine Glucose (UA) Normal mg/dl Normal [facility] Ketones Test strip Ql (U)Ord ered By: Waqas Scott on 07-15-2024 Ketones Ql (U) Negative Negative [facility] Nitrite Test strip Ql (U)Ord ered By: Waqas Scott on 07-15-2024 Nitrite Ql (U) Positive High Negative [facility] Protein Test strip Ql (U)Ord ered By: Waqas Scott on 07-15-2024 Protein Ql (U) 15 mg/dl High Negative [facility] Urinalysis, Routine (Dipstic k)on 07-15-2024 BILIRUBIN URINE Negative Normal Negative [facility] Comment on above: Order Comment: CLEAN CATCH Performed By: #### L 100.0100, L500.2500 #### [facility] [address] [place], [address] Clarity (U) Sl. Cloudy Normal Clear [facility] Comment on above: Order Comment: CLEAN CATCH Performed By: #### L 100.0100, L500.2500 #### [facility] [address] [place], [address] Color (U) Yellow Normal Yellow [facility] Comment on above: Order Comment: CLEAN CATCH Performed By: #### L 100.0100, L500.2500 #### [facility] [address] [place], [address] GLUCOSE, UR Normal Normal Normal [facility] Comment on above: Order Comment: CLEAN CATCH Performed By: #### L 100.0100, L500.2500 #### [facility] [address] [place], [address] KETONE UR Negative Normal Negative [facility] Comment on above: Order Comment: CLEAN CATCH Performed By: #### L 100.0100, L500.2500 #### [facility] [address] [place], [address] LEUK ESTERASE 500 /ul Abnormal Negative [facility] Comment on above: Order Comment: CLEAN CATCH Performed By: #### L 100.0100, L500.2500 #### [facility] [address] [place], [address] Nitrite Ql (U) Positive Abnormal Negative [facility] Comment on above: Order Comment: CLEAN CATCH Performed By: #### L 100.0100, L500.2500 #### [facility] [address] [place], [address] OCCULT BLOOD-UR Negative Normal Negative [facility] Comment on above: Order Comment: CLEAN CATCH Performed By: #### L 100.0100, L500.2500 #### [facility] [address] [place], [address] pH UR 5.0 Normal 5.0 - 8.0 [facility] Comment on above: Order Comment: CLEAN CATCH Performed By: #### L 100.0100, L500.2500 #### [facility] [address] [place], [address] PROT DIPSTX 15 mg/dl Abnormal Negative [facility] Comment on above: Order Comment: CLEAN CATCH Performed By: #### L 100.0100, L500.2500 #### [facility] [address] [place], [address] SP.GR. DIPSTX 1.020 Normal 1.002-1.030 [facility] Comment on above: Order Comment: CLEAN CATCH Performed By: #### L 100.0100, L500.2500 #### [facility] [address] [place], [address] UROBILI Normal Normal Normal [facility] Comment on above: Order Comment: CLEAN CATCH Performed By: #### L 100.0100, L500.2500 #### [facility] [address] [place], [address] Urine blood detectionOrdered By: Waqas Scott on 07-15-2024 Urine Occult Blood Negative Negative [facility] Urine clarityOrdered By: Marilin Scott on 07-15-2024 Clarity (U) Sl. Cloudy Clear [facility] Urine color determinationOrd ered By: Waqas Scott on 07-15-2024 Color (U) Yellow Yellow [facility] Urine cultureOrdered By: Marilin Scott on 07-15-2024 Bacteria identified Cx Nom (U) Presumptive E. coli Abnormal [facility] Urine glucose detectionOrder ed By: Waqas Scott on 07-15-2024 Glucose Ql (U) Normal mg/dl Normal [facility] Urine leukocyte esterase det ection by dipstickOrdered By: Waqas Scott on 07-15-2024 Leukocyte esterase Test strip Ql (U) 500 /ul High Negative [facility] Urine pHOrdered By: Waqas carrillo on 07-15-2024 pH (U) 5.0 [pH] 5.0 - 8.0 [facility] Urine specific gravity measu rementOrdered By: Waqas Scott on 07-15-2024 Specific gravity (U) [Rel density] 1.020 1.002-1.030 [facility] Urine urobilinogen measureme ntOrdered By: Waqas Scott on 07-15-2024 Urobilinogen Ql (U) Normal mg/dl Normal [facility] Urobilinogen Ql (U)Ordered B y: Waqas Scott on 07-15-2024 Urine Urobilinogen Normal mg/dl Normal [facility] Radiation Oncology Visiton 0 04-15-2024 Radiation Oncology Visit [facility] [place] [facility] [address] [place] [address] OFFICE VISIT Date of Service: 04/15/24931 MR#: [id number] Acct: [id number] Name: FALGUNIGHASSANNESTOR Donato Rep #: [id number] : 1935 From: Robinson Yepez DO Age/Sex: 89/F Location: [facility] Status: Signed Intake Vital Signs 10/03/23 08:54 [...] denosumab 60 mg/mL subcutaneous 60 mg subcut [id number] 09/20/22 04/15/24 History syringe (Prolia) anastrozole 1 [...] denosumab 60 mg/mL subcutaneous 60 mg subcut [id number] 09/20/22 Unknown History syringe (Prolia) anastrozole 1 mg tablet 1 mg PO DAILY #90 tabs 08/25/23 Unknown Rx premier protein 30 g PO .every other day 01/29/24 Unknown History hydrochlorothiazide 25 mg tablet 12.5 mg PO DAILY BP 04/15/24 Unknown History Allergy/AdvReac Type Severity Reaction Status Date / Time sulfamethoxazole (From Allergy Intermediate Dizziness Verified 04/15/24 09:39 ) trimethoprim (From ) Allergy Intermediate Dizziness Verified 04/15/24 09:39 Penicillins [...] physical ac (more content not included)... Normal [facility] Urine Cultureon 01-31-2024 [facility] Below infection leve l. Mixed Gram Positive Organisms [place] Count 1000-10,000 MIXC Mixed contaminants. Submit a new specimen if indicated. Normal [facility] Comment on above: Performed By: #### L 100.0100, L500.2500 #### [facility] [address] [place], [address] Bilirubin Test strip Ql (U)O rdered By: Alonzo John on 01-29-2024 Bilirubin Ql (U) Negative Negative [facility] CBC W/Diff, Automatedon 01-02 Absolute Lymph 1.38 X10 3/uL Normal 0.83-4.51 [facility] Comment on above: Performed By: #### L 501.9520, L500.2500, L100.0100 #### [facility] [address] [place], [address] Absolute Neut 5.8 X10 3/uL Normal 2.0-7.7 [facility] Comment on above: Performed By: #### L 501.9520, L500.2500, L100.0100 #### [facility] [address] [place], [address] Basophils/100 WBC (Bld) 0.7 % Normal 0-1 [facility] Comment on above: Performed By: #### L 501.9520, L500.2500, L100.0100 #### [facility] [address] [place], [address] Eosinophils/100 WBC (Bld) 1.2 % Normal 0-5 [facility] Comment on above: Performed By: #### L 501.9520, L500.2500, L100.0100 #### [facility] [address] [place], [address] Erythrocyte distribution width (RBC) [Ratio] 14.1 % Normal 11.6-14.6 [facility] Comment on above: Performed By: #### L 501.9520, L500.2500, L100.0100 #### [facility] [address] [place], [address] Hematocrit (Bld) [Volume fraction] 34.5 % Low 37-47 [facility] Comment on above: Performed By: #### L 501.9520, L500.2500, L100.0100 #### [facility] [address] [place], [address] Hemoglobin (Bld) [Mass/Vol] 11.2 g/dL Low 12.0-15.0 [facility] Comment on above: Performed By: #### L 501.9520, L500.2500, L100.0100 #### [facility] [address] [place], [address] IG% 0.200 Normal 0.0-0.9 [facility] Comment on above: Result Comment: IG% - Immature Granulocytes (promyelocytes, myelocytes and metamyelocytes) > 1% indicates that a LEFT SHIFT is Present. Performed By: #### L 501.9520, L500.2500, L100.0100 #### [facility] [address] [place], [address] Lymphocytes/100 WBC (Bld) 16.8 % Low 19-41 [facility] Comment on above: Performed By: #### L 501.9520, L500.2500, L100.0100 #### [facility] [address] [place], [address] MCH (RBC) [Entitic mass] 28.6 pg Normal 27.0-32.0 [facility] Comment on above: Performed By: #### L 501.9520, L500.2500, L100.0100 #### [facility] [address] [place], [address] MCHC (RBC) [Mass/Vol] 32.5 g/dL Normal 32-36 [facility] Comment on above: Performed By: #### L 501.9520, L500.2500, L100.0100 #### [facility] [address] [place], [address] MCV (RBC) [Entitic vol] 88.2 fL Normal 81-99 [facility] Comment on above: Performed By: #### L 501.9520, L500.2500, L100.0100 #### [facility] [address] [place], [address] Monocytes/100 WBC (Bld) 9.9 % Normal 0-10 [facility] Comment on above: Performed By: #### L 501.9520, L500.2500, L100.0100 #### [facility] [address] [place], [address] Neutrophils/100 WBC (Bld) 71.2 % High 47-70 [facility] Comment on above: Performed By: #### L 501.9520, L500.2500, L100.0100 #### [facility] [address] [place], [address] Nucleated RBC (Bld) [#/Vol] 0 10*3/uL Normal 0-5 [facility] Comment on above: Performed By: #### L 501.9520, L500.2500, L100.0100 #### [facility] [address] [place], [address] Platelet mean volume (Bld) [Entitic vol] 10.3 fL Normal 6.2-12.0 [facility] Comment on above: Performed By: #### L 501.9520, L500.2500, L100.0100 #### [facility] [address] [place], [address] Platelets (Bld) [#/Vol] 285 10*3/uL Normal 150-450 [facility] Comment on above: Performed By: #### L 501.9520, L500.2500, L100.0100 #### [facility] [address] [place], [address] RBC (Bld) [#/Vol] 3.91 10*6/uL Low 4.2-5.4 [facility] Comment on above: Performed By: #### L 501.9520, L500.2500, L100.0100 #### [facility] [address] [place], [address] RDW SD 45.6 fl High 35.1-43.9 [facility] Comment on above: Performed By: #### L 501.9520, L500.2500, L100.0100 #### [facility] [address] [place], [address] WBC (Bld) [#/Vol] 8.2 10*3/uL Normal 4.4-11.0 [facility] Comment on above: Performed By: #### L 501.9520, L500.2500, L100.0100 #### [facility] [address] [place], [address] Comprehensive Metabolic Prof ilon 01-29-2024 Albumin [Mass/Vol] 3.7 g/dL Normal 3.2-5.0 [facility] Comment on above: Order Comment: 1 Performed By: #### L 501.9520, L500.2500, L100.0100 #### [facility] [address] [place], [address] Albumin/Globulin [Mass ratio] 0.9 {ratio} Normal 0.9-2.4 [facility] Comment on above: Order Comment: 1 Performed By: #### L 501.9520, L500.2500, L100.0100 #### [facility] [address] [place], [address] ALK P 74 U/L Normal 45-117 [facility] Comment on above: Order Comment: 1 Performed By: #### L 501.9520, L500.2500, L100.0100 #### [facility] [address] [place], [address] ALT [Catalytic activity/Vol] 15 U/L Normal 13-56 [facility] Comment on above: Order Comment: 1 Performed By: #### L 501.9520, L500.2500, L100.0100 #### [facility] [address] [place], [address] AST [Catalytic activity/Vol] 14 U/L Low 15-37 [facility] Comment on above: Order Comment: 1 Performed By: #### L 501.9520, L500.2500, L100.0100 #### [facility] [address] [place], [address] Bilirubin [Mass/Vol] 0.30 mg/dL Normal 0.20-1.00 [facility] Comment on above: Order Comment: 1 Result Comment: For patients on eltrombopag therapy, use of Dimension [place] TBIL is not recommended. Performed By: #### L 501.9520, L500.2500, L100.0100 #### [facility] [address] [place], [address] BUN/CRE 32.7 RATIO High 10-20 [facility] Comment on above: Order Comment: 1 Performed By: #### L 501.9520, L500.2500, L100.0100 #### [facility] [address] [place], [address] CA,Total 9.7 mg/dL Normal 8.5-10.1 [facility] Comment on above: Order Comment: 1 Performed By: #### L 501.9520, L500.2500, L100.0100 #### [facility] [address] [place], [address] Chloride [Moles/Vol] 95 mmol/L Low 98-107 [facility] Comment on above: Order Comment: 1 Performed By: #### L 501.9520, L500.2500, L100.0100 #### [facility] [address] [place], [address] CO2 [Moles/Vol] 26.0 mmol/L Normal 21.0-32.0 [facility] Comment on above: Order Comment: 1 Performed By: #### L 501.9520, L500.2500, L100.0100 #### [facility] [address] [place], [address] Creatinine [Mass/Vol] 1.13 mg/dL High 0.55-1.02 [facility] Comment on above: Order Comment: 1 Result Comment: The validity of the calculated GFR GFRAA in patients over 70 years has not been determined. Clinical correlation is essential. Performed By: #### L 501.9520, L500.2500, L100.0100 #### [facility] [address] [place], [address] ECRCL 29.64 ml/min Normal [facility] Comment on above: Order Comment: 1 Performed By: #### L 501.9520, L500.2500, L100.0100 #### [facility] [address] [place], [address] EST GFR - AA 58 mL/min Low >60 [facility] Comment on above: Order Comment: 1 Result Comment: Afri can Angolan GFR Calc Performed By: #### L 501.9520, L500.2500, L100.0100 #### [facility] [address] [place], [address] GAP 7 Normal 5-15 [facility] Comment on above: Order Comment: 1 Performed By: #### L 501.9520, L500.2500, L100.0100 #### [facility] [address] [place], [address] GFR/1.73 sq M.predicted among non-blacks MDRD (S/P/Bld) [Vol rate/Area] 48 mL/min/{1.73_m2} Low >60 [facility] Comment on above: Order Comment: 1 Result Comment: Non- GFR Calc Performed By: #### L 501.9520, L500.2500, L100.0100 #### [facility] [address] [place], [address] Globulin (S) [Mass/Vol] 4.1 g/dL Normal 2.2-4.2 [facility] Comment on above: Order Comment: 1 Performed By: #### L 501.9520, L500.2500, L100.0100 #### [facility] [address] [place], [address] Glucose [Mass/Vol] 104 mg/dL Normal 74-106 [facility] Comment on above: Order Comment: 1 Result Comment: Fast ing Glucose result from 100 to 125 mg/dL suggests IMPAIRED HOMEOSTASIS per A.D.A. criteria. Performed By: #### L 501.9520, L500.2500, L100.0100 #### [facility] [address] [place], [address] Potassium [Moles/Vol] 4.2 mmol/L Normal 3.5-5.1 [facility] Comment on above: Order Comment: 1 Performed By: #### L 501.9520, L500.2500, L100.0100 #### [facility] [address] [place], [address] Sodium [Moles/Vol] 127 mmol/L Low 136-145 [facility] Comment on above: Order Comment: 1 Performed By: #### L 501.9520, L500.2500, L100.0100 #### [facility] [address] [place], [address] T PROT 7.8 g/dL Normal 6.4-8.2 [facility] Comment on above: Order Comment: 1 Performed By: #### L 501.9520, L500.2500, L100.0100 #### [facility] [address] [place], [address] Urea nitrogen [Mass/Vol] 37 mg/dL High 7-18 [facility] Comment on above: Order Comment: 1 Performed By: #### L 501.9520, L500.2500, L100.0100 #### [facility] [address] [place], [address] Ketones Test strip Ql (U)Ord ered By: Alonzo John on 01-29-2024 Ketones Ql (U) Negative Negative [facility] LDHon 01-29-2024 LDH 167 U/L Normal 84-246 [facility] Comment on above: Order Comment: 1 Performed By: #### L 501.9520, L500.2500, L100.0100 #### [facility] [address] [place], [address] Magnesiumon 01-29-2024 Magnesium [Mass/Vol] 1.9 mg/dL Normal 1.6-2.6 [facility] Comment on above: Order Comment: 1 Performed By: #### L 501.9520, L500.2500, L100.0100 #### [facility] [address] [place], [address] Magnesium measurementOrdered By: Alonzo John on 01-29-2024 Magnesium [Mass/Vol] 1.9 mg/dL 1.6-2.6 [facility] Microscopic analysis of urin e for red blood cells (RBC)Ordered By: Alonzo John on 01-29-2024 Microscopic analysis of urine for red blood cells (RBC) 0 SEEN /hpf 0-5 [facility] Mucus LM Ql (Urine sed)Order ed By: Alonzo John on 01-29-2024 Mucus Ql (Urine sed) 0 SEEN /hpf [facility] Nitrite Test strip Ql (U)Ord ered By: Alonzo John on 01-29-2024 Nitrite Ql (U) Negative Negative [facility] Oncology Visit Reporton 01-02 Oncology Visit Report [facility] [place] [facility] [address] [place] [address] OFFICE VISIT Date of Service: 01/29/24 1558 MR#: [id number] Acct: [id number] Name: NESTOR MONTES DE OCA I Rep #: [id number] : 1935 From: Alonzo John MD Age/Sex: 89/F [place] [facility] [place] Status: Signed HPI Subjective Date of [...] her Cipro for 14 days.. [facility] Medical History Wears hearing aid [...] Allergies sulfamethoxazole (From ) Allergy (Intermediate, Verified 01/29/24 16:02) Dizziness trimethoprim (From ) Allergy (Intermediate, Verified 01/29/24 16:02) Dizziness Penicillins [...] denosumab 60 mg/mL subcutaneous 60 mg subcut [id number] 09/20/22 01/29/24 History syringe (Prolia) anastrozole 1 mg tablet 1 mg PO DAILY #90 tabs 08/25/23 01/29/24 Rx premier protein 30 g PO .every other day 01/29/24 History Have you fallen in the past yea (more content not included)... Normal [facility] Phosphoruson 01-29-2024 Phosphate [Mass/Vol] 3.4 mg/dL Normal 2.5-4.9 [facility] Comment on above: Order Comment: 1 Performed By: #### L 688.9179, L500.2500, L100.0100 #### [facility] [address] [place], [address] Protein Test strip Ql (U)Ord ered By: Alonzo John on 01-29-2024 Protein Ql (U) Negative Negative [facility] Squamous epithelial cells de tection in urine sediment by light microscopyOrdered By: Alonzo John on 01-29-2024 Epithelial cells.squamous LM Ql (Urine sed) 0 SEEN /hpf -10 [facility] Urinalysis, Completeon 01-28 WBC 0-5 SEEN Normal 0-5 [facility] Comment on above: Order Comment: OSBALDO CTOR TO SPECIFY Performed By: #### L 400.0001 #### [facility] [address] [place], [address] BACTERIA 0 SEEN Normal None Seen [facility] Comment on above: Order Comment: OSBALDO CTOR TO SPECIFY Performed By: #### L 400.0001 #### [facility] [address] [place], [address] EPI,SQUAMOUS 0 SEEN Normal -10 [facility] Comment on above: Order Comment: OSBALDO CTOR TO SPECIFY Performed By: #### L 400.0001 #### [facility] [address] [place], [address] Mucus Ql (Urine sed) 0 SEEN Normal [facility] Comment on above: Order Comment: OSBALDO CTOR TO SPECIFY Performed By: #### L 400.0001 #### [facility] [address] [place], [address] RBC 0 SEEN Normal 0-5 [facility] Comment on above: Order Comment: OSBALDO CTOR TO SPECIFY Performed By: #### L 400.0001 #### [facility] [address] [place], [address] Urine clarityOrdered By: Les John on 01-29-2024 Clarity (U) Clear Clear [facility] Urine color determinationOrd ered By: Alonzo John on 01-29-2024 Color (U) Yellow Yellow [facility] Urine cultureOrdered By: Les John on 01-29-2024 Bacteria identified Cx Nom (U) Positive Abnormal [facility] Urine glucose detectionOrder ed By: Alonzo John on 01-29-2024 Glucose Ql (U) Normal mg/dl Normal [facility] Urine leukocyte esterase det ection by dipstickOrdered By: Alonzo John on 01-29-2024 Leukocyte esterase Test strip Ql (U) 25 /ul High Negative [facility] Urine pHOrdered By: Alonzo pace on 01-29-2024 pH (U) 6.0 [pH] 5.0 - 8.0 [facility] Urine sediment bacteria coun t by microscopy (number/high power field)Ordered By: Alonzo John on 01-29-2024 Bacteria LM.HPF (Urine sed) [#/Area] 0 /[HPF] None Seen [facility] Urine specific gravity measu rementOrdered By: Alonzo John on 01-29-2024 Specific gravity (U) [Rel density] 1.015 1.002-1.030 [facility] Urine urobilinogen measureme ntOrdered By: Alonzo John on 01-29-2024 Urobilinogen Ql (U) Normal mg/dl Normal [facility] White blood cell countOrdere d By: Alonzo John on 01-29-2024 White blood cell count 0-5 SEEN /hpf 0-5 [facility] Urine Cultureon 01-21-2024 [facility] Presumptive E. coli [place] Count >100,000 Presumptive E. coli Presumptive E. [...] TMP SMX Islt CARLOS <=20 S Normal [facility] Comment on above: Performed By: #### L 100.0100, L500.2500 #### [facility] [address] [place], [address] Basic Metabolic Profile (BMP )on 01-18-2024 BUN/CRE 28.4 RATIO High 01-20 [facility] Comment on above: Performed By: #### L 501.9520, L500.2500, L100.0100 #### [facility] [address] [place], [address] CA,Total 9.6 mg/dL Normal 8.5-10.1 [facility] Comment on above: Performed By: #### L 501.9520, L500.2500, L100.0100 #### [facility] [address] [place], [address] Chloride [Moles/Vol] 96 mmol/L Low 98-107 [facility] Comment on above: Performed By: #### L 501.9520, L500.2500, L100.0100 #### [facility] [address] [place], [address] CO2 [Moles/Vol] 27.0 mmol/L Normal 21.0-32.0 [facility] Comment on above: Performed By: #### L 501.9520, L500.2500, L100.0100 #### [facility] [address] [place], [address] Creatinine [Mass/Vol] 1.02 mg/dL Normal 0.55-1.02 [facility] Comment on above: Result Comment: The validity of the calculated GFR GFRAA in patients over 70 years has not been determined. Clinical correlation is essential. Performed By: #### L 501.9520, L500.2500, L100.0100 #### [facility] [address] [place], [address] EST GFR - AA 66 mL/min Normal >60 [facility] Comment on above: Result Comment: Afri can Angolan GFR Calc Performed By: #### L 501.9520, L500.2500, L100.0100 #### [facility] [address] [place], [address] GAP 8 Normal 5-15 [facility] Comment on above: Performed By: #### L 501.9520, L500.2500, L100.0100 #### [facility] [address] [place], [address] GFR/1.73 sq M.predicted among non-blacks MDRD (S/P/Bld) [Vol rate/Area] 54 mL/min/{1.73_m2} Low >60 [facility] Comment on above: Result Comment: Non- GFR Calc Performed By: #### L 501.9520, L500.2500, L100.0100 #### [facility] [address] [place], [address] Glucose [Mass/Vol] 90 mg/dL Normal 74-106 [facility] Comment on above: Performed By: #### L 501.9520, L500.2500, L100.0100 #### [facility] [address] [place], [address] Potassium [Moles/Vol] 4.2 mmol/L Normal 3.5-5.1 [facility] Comment on above: Performed By: #### L 501.9520, L500.2500, L100.0100 #### [facility] [address] [place], [address] Sodium [Moles/Vol] 131 mmol/L Low 136-145 [facility] Comment on above: Performed By: #### L 501.9520, L500.2500, L100.0100 #### [facility] [address] [place], [address] Urea nitrogen [Mass/Vol] 29 mg/dL High 7-18 [facility] Comment on above: Performed By: #### L 501.9520, L500.2500, L100.0100 #### [facility] [address] [place], [address] CBC W/Diff, Automatedon 10-1 Absolute Lymph 1.06 X10 3/uL Normal 0.83-4.51 [facility] Comment on above: Performed By: #### L 501.9520, L500.2500, L100.0100 #### [facility] [address] [place], [address] Absolute Neut 8.1 X10 3/uL High 2.0-7.7 [facility] Comment on above: Performed By: #### L 501.9520, L500.2500, L100.0100 #### [facility] [address] [place], [address] Basophils/100 WBC (Bld) 0.4 % Normal 0-1 [facility] Comment on above: Performed By: #### L 501.9520, L500.2500, L100.0100 #### [facility] [address] [place], [address] Eosinophils/100 WBC (Bld) 0.7 % Normal 0-5 [facility] Comment on above: Performed By: #### L 501.9520, L500.2500, L100.0100 #### [facility] [address] [place], [address] Erythrocyte distribution width (RBC) [Ratio] 14.1 % Normal 11.6-14.6 [facility] Comment on above: Performed By: #### L 501.9520, L500.2500, L100.0100 #### [facility] [address] [place], [address] Hematocrit (Bld) [Volume fraction] 38.6 % Normal 37-47 [facility] Comment on above: Performed By: #### L 501.9520, L500.2500, L100.0100 #### [facility] [address] [place], [address] Hemoglobin (Bld) [Mass/Vol] 12.4 g/dL Normal 12.0-15.0 [facility] Comment on above: Performed By: #### L 501.9520, L500.2500, L100.0100 #### [facility] [address] [place], [address] IG% 0.400 Normal 0.0-0.9 [facility] Comment on above: Result Comment: IG% - Immature Granulocytes (promyelocytes, myelocytes and metamyelocytes) > 1% indicates that a LEFT SHIFT is Present. Performed By: #### L 501.9520, L500.2500, L100.0100 #### [facility] [address] [place], [address] Lymphocytes/100 WBC (Bld) 10.7 % Low 19-41 [facility] Comment on above: Performed By: #### L 501.9520, L500.2500, L100.0100 #### [facility] [address] [place], [address] MCH (RBC) [Entitic mass] 29.2 pg Normal 27.0-32.0 [facility] Comment on above: Performed By: #### L 501.9520, L500.2500, L100.0100 #### [facility] [address] [place], [address] MCHC (RBC) [Mass/Vol] 32.1 g/dL Normal 32-36 [facility] Comment on above: Performed By: #### L 501.9520, L500.2500, L100.0100 #### [facility] [address] [place], [address] MCV (RBC) [Entitic vol] 90.8 fL Normal 81-99 [facility] Comment on above: Performed By: #### L 501.9520, L500.2500, L100.0100 #### [facility] [address] [place], [address] Monocytes/100 WBC (Bld) 6.5 % Normal 0-10 [facility] Comment on above: Performed By: #### L 501.9520, L500.2500, L100.0100 #### [facility] [address] [place], [address] Neutrophils/100 WBC (Bld) 81.3 % High 47-70 [facility] Comment on above: Performed By: #### L 501.9520, L500.2500, L100.0100 #### [facility] [address] [place], [address] Nucleated RBC (Bld) [#/Vol] 0 10*3/uL Normal 0-5 [facility] Comment on above: Performed By: #### L 501.9520, L500.2500, L100.0100 #### [facility] [address] [place], [address] Platelet mean volume (Bld) [Entitic vol] 10.9 fL Normal 6.2-12.0 [facility] Comment on above: Performed By: #### L 501.9520, L500.2500, L100.0100 #### [facility] [address] [place], [address] Platelets (Bld) [#/Vol] 284 10*3/uL Normal 150-450 [facility] Comment on above: Performed By: #### L 501.9520, L500.2500, L100.0100 #### [facility] [address] [place], [address] RBC (Bld) [#/Vol] 4.25 10*6/uL Normal 4.2-5.4 [facility] Comment on above: Performed By: #### L 501.9520, L500.2500, L100.0100 #### [facility] [address] [place], [address] RDW SD 46.8 fl High 35.1-43.9 [facility] Comment on above: Performed By: #### L 501.9520, L500.2500, L100.0100 #### [facility] [address] [place], [address] WBC (Bld) [#/Vol] 9.9 10*3/uL Normal 4.4-11.0 [facility] Comment on above: Performed By: #### L 501.9520, L500.2500, L100.0100 #### [facility] [address] [place], [address] Thyroid Stim Hormone (TSH)on 01-18-2024 TSH 1.650 uIU/mL Normal 0.358-3.740 [facility] Comment on above: Performed By: #### L 501.9520, L500.2500, L100.0100 #### [facility] [address] [place], [address] Basophil percentageOrdered B y: Waqas Scott on 07-22-2023 Chloride [Moles/Vol] 99 mmol/L 98-107 [facility] Cholesterol [Mass/Vol] 188 mg/dL <200 [facility] Comment on above: <200 mg/dL Desirable 200-240 mg/dL Borderline >240 mg/dL High Risk Glucose [Mass/Vol] 81 mg/dL 74-106 [facility] Potassium [Moles/Vol] 4.1 mmol/L 3.5-5.1 [facility] Sodium [Moles/Vol] 132 mmol/L 136-145 [facility] Triglyceride [Mass/Vol] 42 mg/dL <199 [facility] Comment on above: The drugs N-Acetylcy steine and Metamizole may falsely depress this assay.Serum Triglycerides Reference Interval Normal <150 mg/dL Borderline high 150 - 199 mg/dL High 200 - 499 mg/dL Very High > or = 500 mg/dL Laboratory - Chemistry and C hemistry - challengeOrdered By: Waqas Scott on 07-22-2023 Cholesterol in HDL [Mass/Vol] 65 mg/dL >40 [facility] Comment on above: The drugs N-Acetylcy steine and Metamizole may falsely depress this assay. Reference Range HDL <40 mg/dL Low HDL Cholesterol HDL >or= 60 mg/dL High HDL Cholesterol Cholesterol in LDL [Mass/Vol] 115 mg/dL 0-130 [facility] CO2 [Moles/Vol] 27.0 mmol/L 21.0-32.0 [facility] Urea nitrogen/Creatinine [Mass ratio] 24.4 mg/mg 10-20 [facility] No Panel InformationOrdered By: Waqas Scott on 07-22-2023 Estimated GFR (MDRD) Amer 53 mL/min >60 [facility] Comment on above: GFR Calc Estimated GFR (MDRD) Non-Af Amer 44 mL/min >60 [facility] Comment on above: Non- GFR Calc VLDL Cholesterol 8 mg/dL 5-40 [facility] Serum or plasma calcium krysten urement (mass/volume)Ordered By: Waqas Scott on 07-22-2023 Calcium [Mass/Vol] 9.0 mg/dL 8.5-10.1 [facility] Serum or plasma creatinine m easurement (mass/volume)Ordered By: Waqas Scott on 07-22-2023 Creatinine [Mass/Vol] 1.23 mg/dL 0.55-1.02 [facility] Comment on above: The validity of the calculated GFR & GFRAA in patients over 70 years has not been determined. Clinical correlation is essential. Serum or plasma urea nitroge n measurement (mass/volume)Ordered By: Waqas Scott on 07-22-2023 Urea nitrogen [Mass/Vol] 30 mg/dL 7-18 [facility] Thin prep Papanicolaou smear with manual screeningOrdered By: Waqas Scott on 07-22-2023 Thin prep Papanicolaou smear with manual screening 6 5-15 [facility] Absolute lymphocyte countOrd ered By: Alonzo John on 01-30-2023 Lymphocytes Auto (Unsp spec) [#/Vol] 0.92 10*3/uL 0.83-4.51 [facility] Basophil percentageOrdered B y: Alonzo John on 01-30-2023 Basophil percentage 2.9 mg/dL 2.5-4.9 [facility] Basophils/100 WBC (Bld) 0.7 % 0-1 [facility] Bilirubin [Mass/Vol] 0.30 mg/dL 0.20-1.00 [facility] Comment on above: For patients on eltr ombopag therapy, use of Dimension [place] TBIL is not recommended. Chloride [Moles/Vol] 99 mmol/L 98-107 [facility] Eosinophils/100 WBC (Bld) 1.2 % 0-5 [facility] Glucose [Mass/Vol] 96 mg/dL 74-106 [facility] LDH [Catalytic activity/Vol] 169 U/L 84-246 [facility] Neutrophils (Bld) [#/Vol] 6.3 10*3/uL 2.0-7.7 [facility] Neutrophils/100 WBC (Bld) 78.7 % 47-70 [facility] Potassium [Moles/Vol] 4.4 mmol/L 3.5-5.1 [facility] Protein [Mass/Vol] 8.1 g/dL 6.4-8.2 [facility] Sodium [Moles/Vol] 133 mmol/L 136-145 [facility] WBC (Bld) [#/Vol] 8.0 10*3/uL 4.4-11.0 [facility] Blood erythrocytes count (nu mber/volume)Ordered By: Alonzo John on 01-30-2023 RBC (Bld) [#/Vol] 4.16 10*6/uL 4.2-5.4 [facility] Blood hemoglobin measurement (mass/volume)Ordered By: Alonzo John on 01-30-2023 Hemoglobin (Bld) [Mass/Vol] 12.4 g/dL 12.0-15.0 [facility] Blood lymphocytes/100 leukoc ytesOrdered By: [facility] Lymphocytes/100 WBC (Bld) 11.5 % 19-41 [facility] Blood monocytes/100 leukocyt esOrdered By: [place] Alvaro on 01-30-2023 Monocytes/100 WBC (Bld) 7.5 % 0-10 [facility] Blood platelet mean volumeOr dered By: Alonzo John on 01-30-2023 Platelet mean volume (Bld) [Entitic vol] 10.1 fL 6.2-12.0 [facility] Determination of erythrocyte mean corpuscular volume (MCV)Ordered By: Alonzo John on 01-30-2023 MCV (RBC) [Entitic vol] 94.0 fL 81-99 [facility] Hematocrit Auto (Bld) [Volum e fraction]Ordered By: Alonzo John on 01-30-2023 Hematocrit (Bld) [Volume fraction] 39.1 % 37-47 [facility] Laboratory - Chemistry and C hemistry - challengeOrdered By: Alonzo John on 01-30-2023 ALP [Catalytic activity/Vol] 70 U/L 45-117 [facility] ALT [Catalytic activity/Vol] 16 U/L 13-56 [facility] CO2 [Moles/Vol] 27.0 mmol/L 21.0-32.0 [facility] Globulin (S) [Mass/Vol] 4.4 g/dL 2.2-4.2 [facility] Magnesium [Mass/Vol] 1.7 mg/dL 1.6-2.6 [facility] Urea nitrogen/Creatinine [Mass ratio] 27.2 mg/mg 10-20 [facility] Laboratory - Hematology and Cell countsOrdered By: Alonzo John on 01-30-2023 Erythrocyte distribution width (RBC) [Entitic vol] 50.3 fL 35.1-43.9 [facility] Erythrocyte distribution width (RBC) [Ratio] 14.4 % 11.6-14.6 [facility] Immature granulocytes/100 WBC (Bld) 0.400 % 0.0-0.9 [facility] Comment on above: IG% - Immature Granu locytes (promyelocytes, myelocytes and metamyelocytes) > 1% indicates that a LEFT SHIFT is Present. MCH (RBC) [Entitic mass] 29.8 pg 27.0-32.0 [facility] Nucleated RBC/100 WBC (Bld) [Ratio] 0 % 0-5 [facility] MCHC Auto (RBC) [Mass/Vol]Or dered By: Alonzo John on 01-30-2023 MCHC (RBC) [Mass/Vol] 31.7 g/dL 32-36 [facility] No Panel InformationOrdered By: Alonzo John on 01-30-2023 Estimated Creatinine Clearance Calc 37.89 ml/min [facility] Estimated GFR (MDRD) Amer 58 mL/min >60 [facility] Comment on above: GFR Calc Estimated GFR (MDRD) Non-Af Amer 48 mL/min >60 [facility] Comment on above: Non- GFR Calc Vitamin D 25-Hydroxy 60.2 ng/mL [facility] Comment on above: Vitamin D 25(OH) Sta tus Range Deficiency <20 ng/mL (50nmol/L) Insufficiency 20 - 30 ng/mL (50 - 75 nmol/L) Sufficiency 30 - 100 ng/mL (75 - 250 nmol/L) Toxicity >100 ng/mL (>250 nmol/L) Platelets bldOrdered By: Les John on 01-30-2023 Platelets (Bld) [#/Vol] 285 10*3/uL 150-450 [facility] Serum or plasma albumin krysten urement (mass/volume)Ordered By: Alonzo John on 01-30-2023 Albumin [Mass/Vol] 3.7 g/dL 3.2-5.0 [facility] Serum or plasma albumin/glob ulin mass ratioOrdered By: Alonzo Blackburn on 01-30-2023 Albumin/Globulin [Mass ratio] 0.8 {ratio} 0.9-2.4 [facility] Serum or plasma calcium krysten urement (mass/volume)Ordered By: Alonzo [facility] on 01-30-2023 Calcium [Mass/Vol] 9.2 mg/dL 8.5-10.1 [facility] Serum or plasma creatinine m easurement (mass/volume)Ordered By: Alonzo [facility] on 01-30-2023 Creatinine [Mass/Vol] 1.14 mg/dL 0.55-1.02 [facility] Comment on above: The validity of the calculated GFR & GFRAA in patients over 70 years has not been determined. Clinical correlation is essential. Serum or plasma urea nitroge n measurement (mass/volume)Ordered By: [facility] on 01-30-2023 Urea nitrogen [Mass/Vol] 31 mg/dL 7-18 [facility] Thin prep Papanicolaou smear with manual screeningOrdered By: [facility] on 01-30-2023 Thin prep Papanicolaou smear with manual screening 17 U/L 15-37 [facility] Thin prep Papanicolaou smear with manual screening 7 5-15 [facility] Basophil percentageOrdered B y: Waqas Scott on 01-19-2023 Bilirubin [Mass/Vol] 0.40 mg/dL 0.20-1.00 [facility] Comment on above: For patients on eltr ombopag therapy, use of Dimension [place] TBIL is not recommended. Chloride [Moles/Vol] 96 mmol/L 98-107 [facility] Cholesterol [Mass/Vol] 202 mg/dL <200 [facility] Comment on above: <200 mg/dL Desirable 200-240 mg/dL Borderline >240 mg/dL High Risk Glucose [Mass/Vol] 106 mg/dL 74-106 [facility] Comment on above: Fasting Glucose resu lt from 100 to 125 mg/dL suggests IMPAIRED HOMEOSTASIS per A.D.A. criteria. Potassium [Moles/Vol] 3.8 mmol/L 3.5-5.1 [facility] Protein [Mass/Vol] 8.0 g/dL 6.4-8.2 [facility] Sodium [Moles/Vol] 129 mmol/L 136-145 [facility] Triglyceride [Mass/Vol] 73 mg/dL <199 [facility] Comment on above: The drugs N-Acetylcy steine and Metamizole may falsely depress this assay.Serum Triglycerides Reference Interval Normal <150 mg/dL Borderline high 150 - 199 mg/dL High 200 - 499 mg/dL Very High > or = 500 mg/dL Laboratory - Chemistry and C hemistry - challengeOrdered By: Waqas Scott on 01-19-2023 ALP [Catalytic activity/Vol] 61 U/L 45-117 [facility] ALT [Catalytic activity/Vol] 16 U/L 13-56 [facility] CO2 [Moles/Vol] 25.0 mmol/L 21.0-32.0 [facility] Globulin (S) [Mass/Vol] 4.4 g/dL 2.2-4.2 [facility] Urea nitrogen/Creatinine [Mass ratio] 27.1 mg/mg 10-20 [facility] No Panel InformationOrdered By: Waqas Scott on 01-19-2023 Estimated GFR (MDRD) Amer 62 mL/min >60 [facility] Comment on above: GFR Calc Estimated GFR (MDRD) Non-Af Amer 52 mL/min >60 [facility] Comment on above: Non- GFR Calc Serum or plasma albumin krysten urement (mass/volume)Ordered By: Waqas Scott on 01-19-2023 Albumin [Mass/Vol] 3.6 g/dL 3.2-5.0 [facility] Serum or plasma albumin/glob ulin mass ratioOrdered By: Waqas Scott on 01-19-2023 Albumin/Globulin [Mass ratio] 0.8 {ratio} 0.9-2.4 [facility] Serum or plasma calcium krysten urement (mass/volume)Ordered By: Waqas Scott on 01-19-2023 Calcium [Mass/Vol] 9.1 mg/dL 8.5-10.1 [facility] Serum or plasma cholesterol in HDL measurement (mass/volume)Ordered By: Waqas Scott on 01-19-2023 Cholesterol in HDL [Mass/Vol] 65 mg/dL >40 [facility] Comment on above: The drugs N-Acetylcy steine and Metamizole may falsely depress this assay. Reference Range HDL <40 mg/dL Low HDL Cholesterol HDL >or= 60 mg/dL High HDL Cholesterol Serum or plasma cholesterol in VLDL measurement (mass/volume)Ordered By: Waqas Scott on 01-19-2023 Cholesterol in VLDL [Mass/Vol] 15 mg/dL 5-40 [facility] Serum or plasma creatinine m easurement (mass/volume)Ordered By: Waqas Scott on 01-19-2023 Creatinine [Mass/Vol] 1.07 mg/dL 0.55-1.02 [facility] Comment on above: The validity of the calculated GFR & GFRAA in patients over 70 years has not been determined. Clinical correlation is essential. Serum or plasma low density lipoprotein (LDL) cholesterol measurement (mass/volume)Ordered By: Waqas Scott on 01-19-2023 Cholesterol in LDL [Mass/Vol] 122 mg/dL 0-130 [facility] Serum or plasma urea nitroge n measurement (mass/volume)Ordered By: Waqas Scott on 01-19-2023 Urea nitrogen [Mass/Vol] 29 mg/dL 7-18 [facility] Thin prep Papanicolaou smear with manual screeningOrdered By: Waqas Scott on 01-19-2023 Thin prep Papanicolaou smear with manual screening 15 U/L 15-37 [facility] Thin prep Papanicolaou smear with manual screening 8 5-15 [facility] Basophil percentageOrdered B y: Robinson Yepez on 09-26-2022 Creatinine [Mass/Vol] 1.6 mg/dL 0.55-1.02 [facility] Laboratory - Chemistry and C hemistry - challengeOrdered By: Robinson Yepez on 09-26-2022 GFR/1.73 sq M.predicted among non-blacks MDRD (S/P/Bld) [Vol rate/Area] 33.0000 mL/min/{1.73_m2} >60 [facility] No Panel InformationOrdered By: Dr. Yepez on 09-20-2022 Thyroid Stimulating Hormone (TSH) 1.62 uIU/mL 0.358-3.74 [facility] Absolute lymphocyte countOrd ered By: Dr. John on 07-28-2022 Lymphocytes Auto (Unsp spec) [#/Vol] 1.10 10*3/uL 0.83-4.51 [facility] Basophil percentageOrdered B y: Dr. John on 07-28-2022 Basophil percentage 3.1 mg/dL 2.5-4.9 [facility] Basophils/100 WBC (Bld) 0.5 % 0-1 [facility] Bilirubin [Mass/Vol] 0.30 mg/dL 0.20-1.00 [facility] Comment on above: For patients on eltr ombopag therapy, use of Dimension [place] TBIL is not recommended. Chloride [Moles/Vol] 102 mmol/L 98-107 [facility] Eosinophils/100 WBC (Bld) 1.1 % 0-5 [facility] Glucose [Mass/Vol] 94 mg/dL 74-106 [facility] LDH [Catalytic activity/Vol] 130 U/L 84-246 [facility] Neutrophils (Bld) [#/Vol] 7.3 10*3/uL 2.0-7.7 [facility] Neutrophils/100 WBC (Bld) 77.7 % 47-70 [facility] Potassium [Moles/Vol] 4.1 mmol/L 3.5-5.1 [facility] Protein [Mass/Vol] 7.7 g/dL 6.4-8.2 [facility] Sodium [Moles/Vol] 134 mmol/L 136-145 [facility] WBC (Bld) [#/Vol] 9.4 10*3/uL 4.4-11.0 [facility] Basophil percentageOrdered B y: Dr. Scott on 07-28-2022 Cholesterol [Mass/Vol] 180 mg/dL <200 [facility] Comment on above: <200 mg/dL Desirable 200-240 mg/dL Borderline >240 mg/dL High Risk Triglyceride [Mass/Vol] 84 mg/dL <199 [facility] Comment on above: The drugs N-Acetylcy steine and Metamizole may falsely depress this assay.Serum Triglycerides Reference Interval Normal <150 mg/dL Borderline high 150 - 199 mg/dL High 200 - 499 mg/dL Very High > or = 500 mg/dL Blood erythrocytes count (nu mber/volume)Ordered By: Dr. John on 07-28-2022 RBC (Bld) [#/Vol] 4.08 10*6/uL 4.2-5.4 [facility] Blood hemoglobin measurement (mass/volume)Ordered By: Dr. John on 07-28-2022 Hemoglobin (Bld) [Mass/Vol] 11.8 g/dL 12.0-15.0 [facility] Blood lymphocytes/100 leukoc ytesOrdered By: Dr. John on 07-28-2022 Lymphocytes/100 WBC (Bld) 11.7 % 19-41 [facility] Blood monocytes/100 leukocyt esOrdered By: Dr. John on 07-28-2022 Monocytes/100 WBC (Bld) 8.6 % 0-10 [facility] Blood platelet mean volumeOr dered By: Dr. John on 07-28-2022 Platelet mean volume (Bld) [Entitic vol] 10.4 fL 6.2-12.0 [facility] Determination of erythrocyte mean corpuscular volume (MCV)Ordered By: Dr. John on 07-28-2022 MCV (RBC) [Entitic vol] 91.9 fL 81-99 [facility] Hematocrit Auto (Bld) [Volum e fraction]Ordered By: Dr. John on 07-28-2022 Hematocrit (Bld) [Volume fraction] 37.5 % 37-47 [facility] Laboratory - Chemistry and C hemistry - challengeOrdered By: Dr. John on 07-28-2022 ALP [Catalytic activity/Vol] 70 U/L 45-117 [facility] ALT [Catalytic activity/Vol] 13 U/L 13-56 [facility] CO2 [Moles/Vol] 27.0 mmol/L 21.0-32.0 [facility] Globulin (S) [Mass/Vol] 4.3 g/dL 2.2-4.2 [facility] Urea nitrogen/Creatinine [Mass ratio] 28.1 mg/mg 10-20 [facility] Laboratory - Hematology and Cell countsOrdered By: Dr. John on 07-28-2022 Erythrocyte distribution width (RBC) [Entitic vol] 47.8 fL 35.1-43.9 [facility] Erythrocyte distribution width (RBC) [Ratio] 14.1 % 11.6-14.6 [facility] Immature granulocytes/100 WBC (Bld) 0.400 % 0.0-0.9 [facility] Comment on above: IG% - Immature Granu locytes (promyelocytes, myelocytes and metamyelocytes) > 1% indicates that a LEFT SHIFT is Present. MCH (RBC) [Entitic mass] 28.9 pg 27.0-32.0 [facility] Nucleated RBC/100 WBC (Bld) [Ratio] 0 % 0-5 [facility] MCHC Auto (RBC) [Mass/Vol]Or dered By: Dr. John on 07-28-2022 MCHC (RBC) [Mass/Vol] 31.5 g/dL 32-36 [facility] No Panel InformationOrdered By: Dr. John on 07-28-2022 Estimated GFR (MDRD) Amer 54 mL/min >60 [facility] Comment on above: GFR Calc Estimated GFR (MDRD) Non-Af Amer 45 mL/min >60 [facility] Comment on above: Non- GFR Calc Vitamin D 25-Hydroxy 78.5 ng/mL [facility] Comment on above: Vitamin D 25(OH) Sta tus Range Deficiency <20 ng/mL (50nmol/L) Insufficiency 20 - 30 ng/mL (50 - 75 nmol/L) Sufficiency 30 - 100 ng/mL (75 - 250 nmol/L) Toxicity >100 ng/mL (>250 nmol/L) Platelets bldOrdered By: Dr. John on 07-28-2022 Platelets (Bld) [#/Vol] 279 10*3/uL 150-450 [facility] Serum or plasma albumin krysten urement (mass/volume)Ordered By: Dr. John on 07-28-2022 Albumin [Mass/Vol] 3.4 g/dL 3.2-5.0 [facility] Serum or plasma albumin/glob ulin mass ratioOrdered By: Dr. John on 07-28-2022 Albumin/Globulin [Mass ratio] 0.8 {ratio} 0.9-2.4 [facility] Serum or plasma calcium krysten urement (mass/volume)Ordered By: Dr. John on 07-28-2022 Calcium [Mass/Vol] 9.4 mg/dL 8.5-10.1 [facility] Serum or plasma cholesterol in HDL measurement (mass/volume)Ordered By: Dr. Scott on 07-28-2022 Cholesterol in HDL [Mass/Vol] 57 mg/dL >40 [facility] Comment on above: The drugs N-Acetylcy steine and Metamizole may falsely depress this assay. Reference Range HDL <40 mg/dL Low HDL Cholesterol HDL >or= 60 mg/dL High HDL Cholesterol Serum or plasma cholesterol in VLDL measurement (mass/volume)Ordered By: Dr. Scott on 07-28-2022 Cholesterol in VLDL [Mass/Vol] 17 mg/dL 5-40 [facility] Serum or plasma creatinine m easurement (mass/volume)Ordered By: Dr. John on 07-28-2022 Creatinine [Mass/Vol] 1.21 mg/dL 0.55-1.02 [facility] Comment on above: The validity of the calculated GFR & GFRAA in patients over 70 years has not been determined. Clinical correlation is essential. Serum or plasma low density lipoprotein (LDL) cholesterol measurement (mass/volume)Ordered By: Dr. Scott on 07-28-2022 Cholesterol in LDL [Mass/Vol] 106 mg/dL 0-130 [facility] Serum or plasma urea nitroge n measurement (mass/volume)Ordered By: Dr. John on 07-28-2022 Urea nitrogen [Mass/Vol] 34 mg/dL 7-18 [facility] Thin prep Papanicolaou smear with manual screeningOrdered By: Dr. John on 07-28-2022 Thin prep Papanicolaou smear with manual screening 14 U/L 15-37 [facility] Thin prep Papanicolaou smear with manual screening 5 5-15 [facility] Absolute lymphocyte counton 01-05-2022 Lymphocytes Auto (Unsp spec) [#/Vol] 0.84 10*3/uL 0.83-4.51 [facility] Work Phone: Basophil percentageon 2021 Basophils/100 WBC (Bld) 0.1 % 0-1 [facility] Work Phone: Eosinophils/100 WBC (Bld) 0.0 % 0-5 [facility] Work Phone: Neutrophils (Bld) [#/Vol] 10.1 10*3/uL 2.0-7.7 [facility] Work Phone: [phone] Neutrophils/100 WBC (Bld) 83.3 % 47-70 [facility] Work Phone: WBC (Bld) [#/Vol] 12.1 10*3/uL 4.4-11.0 [facility] Work Phone: Blood erythrocytes count (nu mber/volume)on 01-05-2022 RBC (Bld) [#/Vol] 3.43 10*6/uL 4.2-5.4 [facility] Work Phone: Blood hemoglobin measurement (mass/volume)on 01-05-2022 Hemoglobin (Bld) [Mass/Vol] 10.2 g/dL 12.0-15.0 [facility] Work Phone: Blood lymphocytes/100 leukoc yteson 01-05-2022 Lymphocytes/100 WBC (Bld) 6.9 % 19-41 [facility] Work Phone: Blood monocytes/100 leukocyt eson 01-05-2022 Monocytes/100 WBC (Bld) 9.3 % 0-10 [facility] Work Phone: Blood platelet mean volumeon 01-05-2022 Platelet mean volume (Bld) [Entitic vol] 10.7 fL 6.2-12.0 [facility] Work Phone: Determination of erythrocyte mean corpuscular volume (MCV)on 01-05-2022 MCV (RBC) [Entitic vol] 93.3 fL 81-99 [facility] Work Phone: [phone] Hematocrit Auto (Bld) [Volum e fraction]on 01-05-2022 Hematocrit (Bld) [Volume fraction] 32.0 % 37-47 [facility] Work Phone: Laboratory - Hematology and Cell countson 01-05-2022 Erythrocyte distribution width (RBC) [Entitic vol] 48.6 fL 35.1-43.9 [facility] Work Phone: Erythrocyte distribution width (RBC) [Ratio] 14.2 % 11.6-14.6 [facility] Work Phone: Immature granulocytes/100 WBC (Bld) 0.400 % 0.0-0.9 [facility] Work Phone: Comment on above: IG% - Immature Granu locytes (promyelocytes, myelocytes and metamyelocytes) > 1% indicates that a LEFT SHIFT is Present. MCH (RBC) [Entitic mass] 29.7 pg 27.0-32.0 [facility] Work Phone: Nucleated RBC/100 WBC (Bld) [Ratio] 0 % 0-5 [facility] Work Phone: MCHC Auto (RBC) [Mass/Vol]on 01-05-2022 MCHC (RBC) [Mass/Vol] 31.9 g/dL 32-36 [facility] Work Phone: Platelets bldon 01-05-2022 Platelets (Bld) [#/Vol] 260 10*3/uL 150-450 [facility] Work Phone: Absolute lymphocyte counton 10-28-2021 Lymphocytes Auto (Unsp spec) [#/Vol] 1.23 10*3/uL 0.83-4.51 [facility] Work Phone: Basophil percentageon 2021 Basophils/100 WBC (Bld) 0.6 % 0-1 [facility] Work Phone: Bilirubin [Mass/Vol] 0.30 mg/dL 0.20-1.00 [facility] Work Phone: Comment on above: For patients on eltr ombopag therapy, use of Dimension [place] TBIL is not recommended. Chloride [Moles/Vol] 88 mmol/L 98-107 [facility] Work Phone: Eosinophils/100 WBC (Bld) 0.6 % 0-5 [facility] Work Phone: Glucose [Mass/Vol] 126 mg/dL 74-106 [facility] Work Phone: Comment on above: Fasting Glucose resu lt greater than or equal to 126 mg/dL suggests DIABETES MELLITUS per A.D.A. criteria. Neutrophils (Bld) [#/Vol] 7.2 10*3/uL 2.0-7.7 [facility] Work Phone: [phone] Neutrophils/100 WBC (Bld) 76.2 % 47-70 [facility] Work Phone: Potassium [Moles/Vol] 4.3 mmol/L 3.5-5.1 [facility] Work Phone: Protein [Mass/Vol] 7.9 g/dL 6.4-8.2 [facility] Work Phone: Sodium [Moles/Vol] 122 mmol/L 136-145 [facility] Work Phone: WBC (Bld) [#/Vol] 9.4 10*3/uL 4.4-11.0 [facility] Work Phone: Blood erythrocytes count (nu mber/volume)on 10-28-2021 RBC (Bld) [#/Vol] 4.15 10*6/uL 4.2-5.4 [facility] Work Phone: Blood hemoglobin measurement (mass/volume)on 10-28-2021 Hemoglobin (Bld) [Mass/Vol] 12.1 g/dL 12.0-15.0 [facility] Work Phone: Blood lymphocytes/100 leukoc yteson 10-28-2021 Lymphocytes/100 WBC (Bld) 13.0 % 19-41 [facility] Work Phone: Blood monocytes/100 leukocyt eson 10-28-2021 Monocytes/100 WBC (Bld) 9.2 % 0-10 [facility] Work Phone: Blood platelet mean volumeon 10-28-2021 Platelet mean volume (Bld) [Entitic vol] 10.3 fL 6.2-12.0 [facility] Work Phone: Determination of erythrocyte mean corpuscular volume (MCV)on 10-28-2021 MCV (RBC) [Entitic vol] 85.8 fL 81-99 [facility] Work Phone: Hematocrit Auto (Bld) [Volum e fraction]on 10-28-2021 Hematocrit (Bld) [Volume fraction] 35.6 % 37-47 [facility] Work Phone: Laboratory - Chemistry and C hemistry - challengeon 10-28-2021 ALP [Catalytic activity/Vol] 76 U/L 45-117 [facility] Work Phone: ALT [Catalytic activity/Vol] 17 U/L 13-56 [facility] Work Phone: CO2 [Moles/Vol] 27.0 mmol/L 21.0-32.0 [facility] Work Phone: Globulin (S) [Mass/Vol] 4.5 g/dL 2.2-4.2 [facility] Work Phone: Urea nitrogen/Creatinine [Mass ratio] 22.5 mg/mg 10-20 [facility] Work Phone: Laboratory - Hematology and Cell countson 10-28-2021 Erythrocyte distribution width (RBC) [Entitic vol] 41.2 fL 35.1-43.9 [facility] Work Phone: Erythrocyte distribution width (RBC) [Ratio] 13.2 % 11.6-14.6 [facility] Work Phone: Immature granulocytes/100 WBC (Bld) 0.400 % 0.0-0.9 [facility] Work Phone: Comment on above: IG% - Immature Granu locytes (promyelocytes, myelocytes and metamyelocytes) > 1% indicates that a LEFT SHIFT is Present. MCH (RBC) [Entitic mass] 29.2 pg 27.0-32.0 [facility] Work Phone: Nucleated RBC/100 WBC (Bld) [Ratio] 0 % 0-5 [facility] Work Phone: MCHC Auto (RBC) [Mass/Vol]on 10-28-2021 MCHC (RBC) [Mass/Vol] 34.0 g/dL 32-36 [facility] Work Phone: No Panel Informationon 10-28 Estimated GFR (MDRD) Amer 55 mL/min >60 [facility] Work Phone: Comment on above: GFR Calc Estimated GFR (MDRD) Non-Af Amer 45 mL/min >60 [facility] Work Phone: Comment on above: Non- GFR Calc Platelets bldon 10-28-2021 Platelets (Bld) [#/Vol] 300 10*3/uL 150-450 [facility] Work Phone: Serum or plasma albumin krysten urement (mass/volume)on 10-28-2021 Albumin [Mass/Vol] 3.4 g/dL 3.2-5.0 [facility] Work Phone: Serum or plasma albumin/glob ulin mass ratioon 10-28-2021 Albumin/Globulin [Mass ratio] 0.8 {ratio} 0.9-2.4 [facility] Work Phone: Serum or plasma calcium krysten urement (mass/volume)on 10-28-2021 Calcium [Mass/Vol] 9.1 mg/dL 8.5-10.1 [facility] Work Phone: Serum or plasma creatinine m easurement (mass/volume)on 10-28-2021 Creatinine [Mass/Vol] 1.20 mg/dL 0.55-1.02 [facility] Work Phone: Comment on above: The validity of the calculated GFR & GFRAA in patients over 70 years has not been determined. Clinical correlation is essential. Serum or plasma urea nitroge n measurement (mass/volume)on 10-28-2021 Urea nitrogen [Mass/Vol] 27 mg/dL 7-18 [facility] Work Phone: Thin prep Papanicolaou smear with manual screeningon 10-28-2021 Thin prep Papanicolaou smear with manual screening 17 U/L 15-37 [facility] Work Phone: Thin prep Papanicolaou smear with manual screening 7 5-15 [facility] Work Phone: Thin prep Papanicolaou smear with manual screening 134 U/L 84-246 [facility] Work Phone: Basophil percentageon 2021 Basophil percentage < 0.9 mg/dL 0.55-1.02 [facility] Work Phone: No Panel Informationon 10-18 Bedside Estimated GFR (eGFR) > 60.0000 mL/min >60 [facility] Work Phone: Culture, urineon 09-01-2021 Bacteria identified Cx Nom (U) Presumptive E. coli [facility] Work Phone: Basophil percentageon 2021 Chloride [Moles/Vol] 98 mmol/L 98-107 [facility] Work Phone: Cholesterol [Mass/Vol] 215 mg/dL <200 [facility] Work Phone: Comment on above: <200 mg/dL Desirable 200-240 mg/dL Borderline >240 mg/dL High Risk Glucose [Mass/Vol] 93 mg/dL 74-106 [facility] Work Phone: Potassium [Moles/Vol] 4.0 mmol/L 3.5-5.1 [facility] Work Phone: Sodium [Moles/Vol] 133 mmol/L 136-145 [facility] Work Phone: Triglyceride [Mass/Vol] 90 mg/dL <199 [facility] Work Phone: Comment on above: The drugs N-Acetylcy steine and Metamizole may falsely depress this assay.Serum Triglycerides Reference Interval Normal <150 mg/dL Borderline high 150 - 199 mg/dL High 200 - 499 mg/dL Very High > or = 500 mg/dL Laboratory - Chemistry and C hemistry - challengeon 08-18-2021 CO2 [Moles/Vol] 26.0 mmol/L 21.0-32.0 [facility] Work Phone: Urea nitrogen/Creatinine [Mass ratio] 24.3 mg/mg 10-20 [facility] Work Phone: No Panel Informationon 08-18 Estimated GFR (MDRD) Amer 60 mL/min >60 [facility] Work Phone: Comment on above: GFR Calc Estimated GFR (MDRD) Non-Af Amer 50 mL/min >60 [facility] Work Phone: Comment on above: Non- GFR Calc Serum or plasma calcium krysten urement (mass/volume)on 08-18-2021 Calcium [Mass/Vol] 9.4 mg/dL 8.5-10.1 [facility] Work Phone: Serum or plasma cholesterol in HDL measurement (mass/volume)on 08-18-2021 Cholesterol in HDL [Mass/Vol] 60 mg/dL >40 [facility] Work Phone: Comment on above: The drugs N-Acetylcy steine and Metamizole may falsely depress this assay. Reference Range HDL <40 mg/dL Low HDL Cholesterol HDL >or= 60 mg/dL High HDL Cholesterol Serum or plasma cholesterol in VLDL measurement (mass/volume)on 08-18-2021 Cholesterol in VLDL [Mass/Vol] 18 mg/dL 5-40 [facility] Work Phone: Serum or plasma creatinine m easurement (mass/volume)on 08-18-2021 Creatinine [Mass/Vol] 1.11 mg/dL 0.55-1.02 [facility] Work Phone: Comment on above: The validity of the calculated GFR & GFRAA in patients over 70 years has not been determined. Clinical correlation is essential. Serum or plasma low density lipoprotein (LDL) cholesterol measurement (mass/volume)on 08-18-2021 Cholesterol in LDL [Mass/Vol] 137 mg/dL 0-130 [facility] Work Phone: Serum or plasma urea nitroge n measurement (mass/volume)on 08-18-2021 Urea nitrogen [Mass/Vol] 27 mg/dL 10-18 [facility] Work Phone: Thin prep Papanicolaou smear with manual screeningon 08-18-2021 Thin prep Papanicolaou smear with manual screening 08-15 [facility] Work Phone: SURGICAL PATHOLOGYon 017 SURGICAL PATHOLOGY Specimen #: [id number] Physician: CARLOS CANO ___FINAL DIAGNOSIS1. Stomach, biopsy [...] submitted in cassettes C12-C14.Gross examination performed at [facility], [address] [place] [id number] 12/12/2016 10:35:10 PM Patient ID #: Date of Report: 12/14/2016Date of Procedure: 12/12/2016Date of Receipt: 12/12/2016Submitted by: CARLOS Ballardditional Physician(s):WAQAS SCOTTLocation: Diagnostic interpretation performed at [facility], [address] [place] [address]. Normal [facility] Comment on above: Performed By: #### S ####See report for performing lab information. SURGICAL PATHOLOGYon 017 SURGICAL PATHOLOGY Specimen #: [id number] Physician: CARLOS CANO ___FINAL DIAGNOSIS1. Cecum polyp [...] submitted in one cassette.Gross examination performed at [facility], [address] [place], [place] [id number] 11/09/2016 8:11:33 PMPatient ID #: Date of Report: 11/10/2016Date of Procedure: 11/09/2016Date of Receipt: 11/09/2016Submitted by: CAR[facility] Physician(s):WAQAS SCOTTLocation: Diagnostic interpretation performed at [facility], [address] [place] [address]. Normal [facility] Comment on above: Performed By: #### S ####See report for performing lab information. Otheron 02-16-2011 CONVERTED ELECTRONIC SIGNATURE LENO JARVIS(ASCP) (Electronic signature on file) Final Signed Out: 02/16/2011 15:12 [facility] CONVERTED FINAL DIAGNOSIS Relevant History: Hysterectomy: Y Comment: Please do an HPV reflex test if ASCUS. SPECIMEN ADEQUACY SATISFACTORY FOR EVALUATION. INTERPRETATION/RESULT NEGATIVE FOR INTRAEPITHELIAL LESION OR MALIGNANCY. [facility] CONVERTED GROSS DESCRIPTION SPECIMEN: THIN PREP VAGINAL CUFF [facility] CONVERTED ORDERING PROVIDER Ordering Provider: INDER THAPA [facility] CONVERTED PAP DISCLAIMER The Pap test serves as a screening tool for early detection of cervical cancer. The Pap test does not represent a final diagnostic test for cervical cancer. Furthermore, the Pap test was not designed to screen for other malignancies (endometrial, ovarian cancer, etc....). False negatives and false positives have occurred. If clinically indicated, further patient evaluation is recommended. [facility] Otheron 11-25-2008 CONVERTED ELECTRONIC SIGNATURE BRUCE LAY M.D., PATHOLOGIST (Electronic signature on file) Final Signed Out: 11/25/2008 13:25 [facility] CONVERTED FINAL DIAGNOSIS Relevant History: SPECIMEN ADEQUACY SATISFACTORY FOR EVALUATION. GENERAL CATEGORIZATION NEGATIVE FOR INTRAEPITHELIAL LESION OR MALIGNANCY. INTERPRETATION/RESULT HYPERKERATOSIS. [facility] CONVERTED GROSS DESCRIPTION SPECIMEN: THIN PREP VAGINAL CUFF [facility] CONVERTED ORDERING PROVIDER Ordering Provider: INDER THAPA [facility] CONVERTED PAP DISCLAIMER The Pap test serves as a screening tool for early detection of cervical cancer. The Pap test does not represent a final diagnostic test for cervical cancer. Furthermore, the Pap test was not designed to screen for other malignancies (endometrial, ovarian cancer, etc....). False negatives and false positives have occurred. If clinically indicated, further patient evaluation is recommended. [facility] Culture, urine Bacteria identified Cx Nom (U) Presumptive E. coli [facility] Work Phone: Vital Signs Date Time Vital Sign Value Performing Clinician Faci lity 10-30-2024 13:20-0400 Body height 147.[address] Waqas Scott MD Work Phone: [facility] 10-30-2024 13:20-0400 Body mass index (BMI) [Ratio] 28.8 kg/m2 Dr. Waqas Scott MD Work Phone: [facility] 10-30-2024 13:20-0400 Body weight 62.[address] Waqas Scott MD Work Phone: [facility] 10-30-2024 13:20-0400 Diastolic blood pressure 83 mm[Hg] Dr. Waqas Scott MD Work Phone: [facility] 10-30-2024 13:20-0400 Heart rate 78 /min Dr. Waqas Scott MD Work Phone: [facility] 10-30-2024 13:20-0400 Respiratory rate 18 /min Dr. Waqas Scott MD Work Phone: [facility] 10-30-2024 13:20-0400 Systolic blood pressure 138 mm[Hg] Dr. Waqas Scott MD Work Phone: [facility] 10-03-2024 14:45-0400 Body temperature 99 [degF] Dr. Waqas Scott MD Work Phone: [facility] 10-03-2024 14:45-0400 Diastolic blood pressure 54 mm[Hg] Dr. Waqas Scott MD Work Phone: 0(620)261-065964 [place] [address] 10-03-2024 14:45-0400 Heart rate 63 /min Dr. Waqas Scott MD Work Phone: [facility] 10-03-2024 14:45-0400 Respiratory rate 14 /min Dr. Waqas Scott MD Work Phone: [facility] 10-03-2024 14:45-0400 SaO2% (BldA) [Mass fraction] 97 % Dr. Waqas Scott MD Work Phone: 5(354)871-011723 [address] 10-03-2024 14:45-0400 Systolic blood pressure 106 mm[Hg] Dr. Waqas Scott MD Work Phone: 5(110)332-567559 [place] [address] 10-03-2024 08:00-0400 Inhaled oxygen flow rate 2 L/min Dr. Waqas Scott MD Work Phone: 5(120)999-031659 [place] [address] 10-03-2024 05:14-0400 Body mass index (BMI) [Ratio] 31.6 kg/m2 Dr. Waqas Scott MD Work Phone: 7(072)008-856362 [place] [address] 10-03-2024 05:14-0400 Body weight 68.[address] Waqas Scott MD Work Phone: 8(638)173-839659 [place] [address] 10-02-2024 13:07-0400 Body height 147.[address] Waqas Scott MD Work Phone: 4(074)713-615759 [place] [address] 10-01-2024 14:15-0400 Diastolic blood pressure 50 mm[Hg] Dr. Waqas Scott MD Work Phone: 4(546)577-519862 [place] [address] 10-01-2024 14:15-0400 Heart rate 67 /min Dr. Waqas Scott MD Work Phone: 7(291)748-412423 [address] 10-01-2024 14:15-0400 Respiratory rate 16 /min Dr. Waqas Scott MD Work Phone: 7(666)896-262362 [place] [address] 10-01-2024 14:15-0400 SaO2% (BldA) [Mass fraction] 96 % Dr. Waqas Scott MD Work Phone: 4(674)929-744062 [place] [address] 10-01-2024 14:15-0400 Systolic blood pressure 106 mm[Hg] Dr. Waqas Scott MD Work Phone: 2(179)947-068062 [place] [address] 10-01-2024 14:08-0400 Body temperature 97.6 [degF] Dr. Waqas Scott MD Work Phone: 6(830)282-719759 [place] [address] 10-01-2024 10:18-0400 Body height 147.[address] Waqas Scott MD Work Phone: 3(546)858-019359 [place] [address] 10-01-2024 10:18-0400 Body mass index (BMI) [Ratio] 34.2 kg/m2 Dr. Waqas Scott MD Work Phone: 0(896)424-422159 [place] [address] 10-01-2024 10:18-0400 Body weight 74.[address] Waqas Scott MD Work Phone: 6(362)740-654359 [place] [address] 08-01-2024 08:57-0400 Diastolic blood pressure 95 mm[Hg] Dr. Waqas Scott MD Work Phone: 3(570)496-941859 [place] [address] 08-01-2024 08:57-0400 Heart rate 102 /min Dr. Waqas Scott MD Work Phone: 0(629)665-020459 [place] [address] 08-01-2024 08:57-0400 Respiratory rate 17 /min Dr. Waqas Scott MD Work Phone: 4(412)133-362959 [place] [address] 08-01-2024 08:57-0400 SaO2% (BldA) [Mass fraction] 100 % Dr. Waqas Scott MD Work Phone: 9(005)824-661123 [address] 08-01-2024 08:57-0400 Systolic blood pressure 160 mm[Hg] Dr. Waqas Scott MD Work Phone: 0(770)086-246159 [place] [address] 07-22-2024 16:02-0400 Body mass index (BMI) [Ratio] 31.1 kg/m2 Dr. Waqas Scott MD Work Phone: 2(361)989-678462 [place] [address] 07-22-2024 16:02-0400 Body temperature 98.3 [degF] Dr. Waqas Scott MD Work Phone: 2(061)052-184023 [address] 07-22-2024 16:02-0400 Body weight 67.[address] Waqas Sctot MD Work Phone: [facility] 07-22-2024 16:02-0400 Diastolic blood pressure 71 mm[Hg] Dr. Waqas Scott MD Work Phone: [facility] 07-22-2024 16:02-0400 Heart rate 70 /min Dr. Waqas Scott MD Work Phone: 4(101)531-692162 [place] [address] 07-22-2024 16:02-0400 Respiratory rate 18 /min Dr. Waqas Scott MD Work Phone: 3(458)940-756923 [address] 07-22-2024 16:02-0400 SaO2% (BldA) [Mass fraction] 99 % Dr. Waqas Scott MD Work Phone: 9(879)847-315062 [place] [address] 07-22-2024 16:02-0400 Systolic blood pressure 145 mm[Hg] Dr. Waqas Scott MD Work Phone: 3(338)396-891423 [address] 04-15-2024 09:34-0500 Body height 147.[address] Waqas Scott MD Work Phone: 4(513)373-389923 [address] 04-15-2024 09:34-0500 Body mass index (BMI) [Ratio] 31.2 kg/m2 Dr. Waqas Scott MD Work Phone: [facility] 04-15-2024 09:34-0500 Body temperature 97.7 [degF] Dr. Waqas Scott MD Work Phone: [facility] 04-15-2024 09:34-0500 Body weight 67.[address] Waqas Scott MD Work Phone: 9(313)778-103762 [place] [address] 04-15-2024 09:34-0500 Diastolic blood pressure 71 mm[Hg] Dr. Waqas Scott MD Work Phone: [facility] 04-15-2024 09:34-0500 Heart rate 93 /min Dr. Waqas Scott MD Work Phone: [facility] 04-15-2024 09:34-0500 Respiratory rate 18 /min Dr. Waqas Scott MD Work Phone: [facility] 04-15-2024 09:34-0500 SaO2% (BldA) [Mass fraction] 95 % Dr. Waqas Scott MD Work Phone: [facility] 04-15-2024 09:34-0500 Systolic blood pressure 147 mm[Hg] Dr. Waqas Scott MD Work Phone: 4(052)909-991462 [place] [address] 05-29-2023 09:09-0500 Body height 147.[address] Waqas Scott Work Phone: 6(359)246-405023 [address] 05-29-2023 09:09-0500 Body mass index (BMI) [Ratio] 31.4 kg/m2 Dr. Waqas Scott Work Phone: 3(759)730-499862 [place] [address] 05-29-2023 09:09-0500 Body temperature 97.4 [degF] Dr. Waqas Scott Work Phone: 8(985)930-753962 [place] [address] 05-29-2023 09:09-0500 Body weight 68.[address] Waqas Scott Work Phone: 0(426)539-440623 [address] 05-29-2023 09:09-0500 Diastolic blood pressure 78 mm[Hg] Dr. Waqas Scott Work Phone: [facility] 05-29-2023 09:09-0500 Heart rate 82 /min Dr. Waqas Scott Work Phone: [facility] 05-29-2023 09:09-0500 Respiratory rate 18 /min Dr. Waqas Scott Work Phone: [facility] 05-29-2023 09:09-0500 SaO2% (BldA) [Mass fraction] 98 % Dr. Waqas Scott Work Phone: [facility] 05-29-2023 09:09-0500 Systolic blood pressure 146 mm[Hg] Dr. Waqas Scott Work Phone: [facility] 01-30-2023 13:44-0400 Body height 147.[address] Waqas Scott Work Phone: [facility] 01-30-2023 13:44-0400 Body mass index (BMI) [Ratio] 32.3 kg/m2 Dr. Waqas Scott Work Phone: [facility] 01-30-2023 13:44-0400 Body temperature 98.9 [degF] Dr. Waqas Scott Work Phone: 8(094)676-406862 [place] [address] 01-30-2023 13:44-0400 Body weight 70.[address] Waqas Scott Work Phone: 0(526)568-680662 [place] [address] 01-30-2023 13:44-0400 Diastolic blood pressure 76 mm[Hg] Dr. Waqas Scott Work Phone: 3(214)591-351459 [place] [address] 01-30-2023 13:44-0400 Heart rate 89 /min Dr. Waqas Scott Work Phone: 6(673)655-481823 [address] 01-30-2023 13:44-0400 Respiratory rate 18 /min Dr. Waqas Scott Work Phone: 0(418)087-684262 [place] [address] 01-30-2023 13:44-0400 SaO2% (BldA) [Mass fraction] 98 % Dr. Waqas Scott Work Phone: 0(952)750-880923 [address] 01-30-2023 13:44-0400 Systolic blood pressure 167 mm[Hg] Dr. Waqas Scott Work Phone: 5(610)854-561623 [address] 01-24-2023 09:18-0400 Body height 147.[address] Waqas Scott Work Phone: [facility] 01-24-2023 09:18-0400 Body mass index (BMI) [Ratio] 31.8 kg/m2 Dr. Waqas Scott Work Phone: 4(485)717-902359 [place] [address] 01-24-2023 09:18-0400 Body temperature 98.1 [degF] Dr. Waqas Scott Work Phone: 0(990)469-145062 [place] [address] 01-24-2023 09:18-0400 Body weight 69.[address] Waqas Scott Work Phone: 3(180)784-265562 [place] [address] 01-24-2023 09:18-0400 Diastolic blood pressure 81 mm[Hg] Dr. Waqas Scott Work Phone: [facility] 01-24-2023 09:18-0400 Heart rate 89 /min Dr. Waqas Scott Work Phone: [facility] 01-24-2023 09:18-0400 Respiratory rate 18 /min Dr. Waqas Scott Work Phone: [facility] 01-24-2023 09:18-0400 SaO2% (BldA) [Mass fraction] 100 % Dr. Waqas Scott Work Phone: [facility] 01-24-2023 09:18-0400 Systolic blood pressure 156 mm[Hg] Dr. Waqas Scott Work Phone: [facility] 09-20-2022 09:44-0400 Body height 147.[address] Waqas Scott Work Phone: [facility] 09-20-2022 09:44-0400 Body mass index (BMI) [Ratio] 32.6 kg/m2 Dr. Waqas Scott Work Phone: [facility] 09-20-2022 09:44-0400 Body temperature 96.9 [degF] Dr. Waqas Scott Work Phone: [facility] 09-20-2022 09:44-0400 Body weight 70.[address] Waqas Scott Work Phone: [facility] 09-20-2022 09:44-0400 Diastolic blood pressure 73 mm[Hg] Dr. Waqas Scott Work Phone: [facility] 09-20-2022 09:44-0400 Heart rate 78 /min Dr. Waqas Scott Work Phone: [facility] 09-20-2022 09:44-0400 Respiratory rate 16 /min Dr. Waqas Scott Work Phone: [facility] 09-20-2022 09:44-0400 SaO2% (BldA) [Mass fraction] 97 % Dr. Waqas Scott Work Phone: [facility] 09-20-2022 09:44-0400 Systolic blood pressure 155 mm[Hg] Dr. Waqas Scott Work Phone: [facility] 07-28-2022 13:56-0400 Body height 147.[address] Waqas Scott Work Phone: [facility] 07-28-2022 13:56-0400 Body mass index (BMI) [Ratio] 32.5 kg/m2 Dr. Waqas Scott Work Phone: [facility] 07-28-2022 13:56-0400 Body temperature 98.2 [degF] Dr. Waqas Scott Work Phone: [facility] 07-28-2022 13:56-0400 Body weight 70.[address] Waqas Scott Work Phone: [facility] 07-28-2022 13:56-0400 Diastolic blood pressure 77 mm[Hg] Dr. Waqas Scott Work Phone: [facility] 07-28-2022 13:56-0400 Heart rate 87 /min Dr. Waqas Scott Work Phone: [facility] 07-28-2022 13:56-0400 Respiratory rate 16 /min Dr. Waqas Scott Work Phone: [facility] 07-28-2022 13:56-0400 SaO2% (BldA) [Mass fraction] 98 % Dr. Waqas Sctot Work Phone: [facility] 07-28-2022 13:56-0400 Systolic blood pressure 157 mm[Hg] Dr. Waqas Scott Work Phone: [facility] 05-23-2022 09:35-0500 Body mass index (BMI) [Ratio] 33.7 kg/m2 Dr. Waqas Scott Work Phone: [facility] 05-23-2022 09:35-0500 Body temperature 97.8 [degF] Dr. Waqas Scott Work Phone: [facility] 05-23-2022 09:35-0500 Body weight 73.[address] Waqas Scott Work Phone: [facility] 05-23-2022 09:35-0500 Diastolic blood pressure 78 mm[Hg] Dr. Waqas Scott Work Phone: [facility] 05-23-2022 09:35-0500 Heart rate 80 /min Dr. Waqas Scott Work Phone: [facility] 05-23-2022 09:35-0500 Respiratory rate 18 /min Dr. Waqas Scott Work Phone: [facility] 05-23-2022 09:35-0500 SaO2% (BldA) [Mass fraction] 80 % Dr. Waqas Scott Work Phone: [facility] 05-23-2022 09:35-0500 Systolic blood pressure 156 mm[Hg] Dr. Waqas Scott Work Phone: [facility] 05-05-2022 12:52-0500 Body mass index (BMI) [Ratio] 32.8 kg/m2 Dr. Waqas Scott Work Phone: [facility] 05-05-2022 12:52-0500 Body temperature 98.2 [degF] Dr. Waqas Scott Work Phone: [facility] 05-05-2022 12:52-0500 Body weight 71.[address] Waqas Scott Work Phone: [facility] 05-05-2022 12:52-0500 Diastolic blood pressure 61 mm[Hg] Dr. Waqas Scott Work Phone: [facility] 05-05-2022 12:52-0500 Heart rate 77 /min Dr. Waqas Scott Work Phone: [facility] 05-05-2022 12:52-0500 Respiratory rate 17 /min Dr. Waqas Scott Work Phone: [facility] 05-05-2022 12:52-0500 SaO2% (BldA) [Mass fraction] 99 % Dr. Waqas Scott Work Phone: [facility] 05-05-2022 12:52-0500 Systolic blood pressure 139 mm[Hg] Dr. Waqas Scott Work Phone: [facility] 04-26-2022 10:26-0500 Body mass index (BMI) [Ratio] 33.3 kg/m2 Dr. Waqas Scott Work Phone: [facility] 04-26-2022 10:26-0500 Body temperature 97 [degF] Dr. Waqas Scott Work Phone: [facility] 04-26-2022 10:26-0500 Body weight 72.[address] Waqas Scott Work Phone: [facility] 04-26-2022 10:26-0500 Diastolic blood pressure 79 mm[Hg] Dr. Waqas Scott Work Phone: [facility] 04-26-2022 10:26-0500 Heart rate 81 /min Dr. Waqas Scott Work Phone: [facility] 04-26-2022 10:26-0500 Respiratory rate 16 /min Dr. Waqas Scott Work Phone: [facility] 04-26-2022 10:26-0500 SaO2% (BldA) [Mass fraction] 96 % Dr. Waqas Scott Work Phone: [facility] 04-26-2022 10:26-0500 Systolic blood pressure 144 mm[Hg] Dr. Waqas Scott Work Phone: [facility] 04-20-2022 10:11-0500 Body mass index (BMI) [Ratio] 33.3 kg/m2 Dr. Waqas Scott Work Phone: [facility] 04-20-2022 10:11-0500 Body temperature 97 [degF] Dr. Waqas Scott Work Phone: [facility] 04-20-2022 10:11-0500 Body weight 72.[address] Waqas Scott Work Phone: [facility] 04-20-2022 10:11-0500 Diastolic blood pressure 84 mm[Hg] Dr. Waqas Scott Work Phone: [facility] 04-20-2022 10:11-0500 Heart rate 75 /min Dr. Waqas Scott Work Phone: [facility] 04-20-2022 10:11-0500 Respiratory rate 16 /min Dr. Waqas Scott Work Phone: [facility] 04-20-2022 10:11-0500 SaO2% (BldA) [Mass fraction] 99 % Dr. Waqas Scott Work Phone: [facility] 04-20-2022 10:11-0500 Systolic blood pressure 158 mm[Hg] Dr. Waqas Scott Work Phone: [facility] 04-13-2022 10:08-0500 Body mass index (BMI) [Ratio] 33.4 kg/m2 Dr. Waqas Scott Work Phone: [facility] 04-13-2022 10:08-0500 Body temperature 97.8 [degF] Dr. Waqas Scott Work Phone: [facility] 04-13-2022 10:08-0500 Body weight 72.[address] Waqas Scott Work Phone: [facility] 04-13-2022 10:08-0500 Diastolic blood pressure 70 mm[Hg] Dr. Waqas Scott Work Phone: [facility] 04-13-2022 10:08-0500 Heart rate 78 /min Dr. Waqas Scott Work Phone: [facility] 04-13-2022 10:08-0500 Respiratory rate 18 /min Dr. Waqas Scott Work Phone: [facility] 04-13-2022 10:08-0500 SaO2% (BldA) [Mass fraction] 99 % Dr. Waqas Scott Work Phone: [facility] 04-13-2022 10:08-0500 Systolic blood pressure 148 mm[Hg] Dr. Waqas Scott Work Phone: [facility] 04-06-2022 10:09-0500 Body mass index (BMI) [Ratio] 33.4 kg/m2 Dr. Waqas Scott Work Phone: [facility] 04-06-2022 10:09-0500 Body temperature 97.1 [degF] Dr. Waqas Scott Work Phone: [facility] 04-06-2022 10:09-0500 Body weight 72.[address] Waqas Scott Work Phone: [facility] 04-06-2022 10:09-0500 Diastolic blood pressure 64 mm[Hg] Dr. Waqas Scott Work Phone: [facility] 04-06-2022 10:09-0500 Heart rate 65 /min Dr. Waqas Scott Work Phone: [facility] 04-06-2022 10:09-0500 Respiratory rate 16 /min Dr. Waqas Scott Work Phone: [facility] 04-06-2022 10:09-0500 SaO2% (BldA) [Mass fraction] 100 % Dr. Waqas Scott Work Phone: [facility] 04-06-2022 10:09-0500 Systolic blood pressure 135 mm[Hg] Dr. Waqas Scott Work Phone: [facility] 01-24-2022 16:07-0400 Body height 147.[address] Waqas Scott Work Phone: [facility] Work Phone: 01-24-2022 15:56-0400 Body mass index (BMI) [Ratio] 33.7 kg/m2 Dr. Waqas Scott Work Phone: [facility] Work Phone: 01-24-2022 15:56-0400 Body weight 73.[address] Waqas Scott Work Phone: [facility] Work Phone: 01-24-2022 15:56-0400 Diastolic blood pressure 65 mm[Hg] Dr. Waqas Scott Work Phone: [facility] Work Phone: 01-24-2022 15:56-0400 Heart rate 79 /min Dr. Waqas Scott Work Phone: [facility] Work Phone: 01-24-2022 15:56-0400 Respiratory rate 16 /min Dr. Waqas Scott Work Phone: [facility] Work Phone: 01-24-2022 15:56-0400 Systolic blood pressure 132 mm[Hg] Dr. Waqas Scott Work Phone: [facility] Work Phone: 01-05-2022 14:55-0400 Body temperature 97.9 [degF] Dr. Waqas Scott Work Phone: [facility] Work Phone: 01-05-2022 14:55-0400 Diastolic blood pressure 45 mm[Hg] Dr. Waqas Scott Work Phone: [facility] Work Phone: 01-05-2022 14:55-0400 Heart rate 60 /min Dr. Waqas Scott Work Phone: [facility] Work Phone: 01-05-2022 14:55-0400 Respiratory rate 18 /min Dr. Waqas Scott Work Phone: [facility] Work Phone: 01-05-2022 14:55-0400 SaO2% (BldA) [Mass fraction] 99 % Dr. Waqas Scott Work Phone: [facility] Work Phone: 01-05-2022 14:55-0400 Systolic blood pressure 116 mm[Hg] Dr. Waqas Scott Work Phone: [facility] Work Phone: 01-05-2022 14:00-0400 Inhaled oxygen flow rate 2 L/min Dr. Waqas Scott Work Phone: [facility] Work Phone: 01-05-2022 08:35-0400 Body temperature 98.2 [degF] Dr. Waqas Scott Work Phone: [facility] Work Phone: 01-05-2022 08:35-0400 Diastolic blood pressure 50 mm[Hg] Dr. Waqas Scott Work Phone: [facility] Work Phone: 01-05-2022 08:35-0400 Heart rate 68 /min Dr. Waqas Scott Work Phone: [facility] Work Phone: 01-05-2022 08:35-0400 Respiratory rate 18 /min Dr. Waqas Scott Work Phone: [facility] Work Phone: 01-05-2022 08:35-0400 SaO2% (BldA) [Mass fraction] 97 % Dr. Waqas Scott Work Phone: [facility] Work Phone: 01-05-2022 08:35-0400 Systolic blood pressure 140 mm[Hg] Dr. Waqas Scott Work Phone: [facility] Work Phone: 01-04-2022 11:52-0400 Body height 147.[address] Waqas Scott Work Phone: [facility] Work Phone: 01-04-2022 11:52-0400 Body mass index (BMI) [Ratio] 34 kg/m2 Dr. Waqas Scott Work Phone: [facility] Work Phone: 01-04-2022 11:52-04[address] Body weight [address] Waqas Scott Work Phone: [facility] Work Phone: 12-15-2021 13:06-0400 Body mass index (BMI) [Ratio] 33.8 kg/m2 Dr. Waqas Scott Work Phone: [facility] Work Phone: 12-15-2021 13:06-0400 Body temperature 97.4 [degF] Dr. Waqas Scott Work Phone: [facility] Work Phone: 12-15-2021 13:06-0400 Body weight 73.[address] Waqas Scott Work Phone: [facility] Work Phone: 12-15-2021 13:06-0400 Diastolic blood pressure 68 mm[Hg] Dr. Waqas Scott Work Phone: [facility] Work Phone: 12-15-2021 13:06-0400 Heart rate 82 /min Dr. Waqas Scott Work Phone: [facility] Work Phone: 12-15-2021 13:06-0400 Respiratory rate 16 /min Dr. aWqas Scott Work Phone: [facility] Work Phone: 12-15-2021 13:06-0400 SaO2% (BldA) [Mass fraction] 100 % Dr. Waqas Scott Work Phone: [facility] Work Phone: 12-15-2021 13:06-0400 Systolic blood pressure 127 mm[Hg] Dr. Waqas Scott Work Phone: [facility] Work Phone: 10-28-2021 11:16-0400 Body mass index (BMI) [Ratio] 34.9 kg/m2 Dr. Waqas Scott Work Phone: [facility] Work Phone: 10-28-2021 11:16-0400 Body temperature 98.2 [degF] Dr. Waqas Scott Work Phone: [facility] Work Phone: 10-28-2021 11:16-0400 Body weight 75.[address] Waqas Scott Work Phone: [facility] Work Phone: 10-28-2021 11:16-0400 Diastolic blood pressure 74 mm[Hg] Dr. Waqas Scott Work Phone: [facility] Work Phone: 10-28-2021 11:16-0400 Heart rate 84 /min Dr. Waqas Scott Work Phone: [facility] Work Phone: 10-28-2021 11:16-0400 Respiratory rate 15 /min Dr. Waqas Scott Work Phone: [facility] Work Phone: 10-28-2021 11:16-0400 SaO2% (BldA) [Mass fraction] 99 % Dr. Waqas Scott Work Phone: [facility] Work Phone: 10-28-2021 11:16-0400 Systolic blood pressure 156 mm[Hg] Dr. Waqas Scott Work Phone: [facility] Work Phone: 10-11-2021 15:38-0400 Body mass index (BMI) [Ratio] 34.3 kg/m2 Dr. Waqas Scott Work Phone: [facility] Work Phone: 10-11-2021 15:38-0400 Body temperature 98 [degF] Dr. Waqas Scott Work Phone: [facility] Work Phone: 10-11-2021 15:38-0400 Body weight 74.[address] Waqas Scott Work Phone: [facility] Work Phone: 10-11-2021 15:38-0400 Diastolic blood pressure 70 mm[Hg] Dr. Waqas Scott Work Phone: [facility] Work Phone: 10-11-2021 15:38-0400 Heart rate 86 /min Dr. Waqas Scott Work Phone: [facility] Work Phone: 10-11-2021 15:38-0400 Respiratory rate 18 /min Dr. Waqas Scott Work Phone: [facility] Work Phone: 10-11-2021 15:38-0400 SaO2% (BldA) [Mass fraction] 99 % Dr. Waqas Scott Work Phone: [facility] Work Phone: 10-11-2021 15:38-0400 Systolic blood pressure 138 mm[Hg] Dr. Waqas Scott Work Phone: [facility] Work Phone: 08-27-2021 10:09-0400 Body height 147.[address] Waqas Scott Work Phone: [facility] Work Phone: 08-27-2021 10:09-0400 Body mass index (BMI) [Ratio] 34.4 kg/m2 Dr. Waqas Scott Work Phone: [facility] Work Phone: 08-27-2021 10:09-0400 Body temperature 97.4 [degF] Dr. Waqas Scott Work Phone: [facility] Work Phone: 08-27-2021 10:09-0400 Body weight 74.[address] Waqas Scott Work Phone: [facility] Work Phone: 08-27-2021 10:09-0400 Diastolic blood pressure 77 mm[Hg] Dr. Waqas Scott Work Phone: [facility] Work Phone: 08-27-2021 10:09-0400 Heart rate 92 /min Dr. Waqas Scott Work Phone: [facility] Work Phone: 08-27-2021 10:09-0400 Respiratory rate 18 /min Dr. Waqas Scott Work Phone: [facility] Work Phone: 08-27-2021 10:09-0400 SaO2% (BldA) [Mass fraction] 100 % Dr. Waqas Scott Work Phone: [facility] Work Phone: 08-27-2021 10:09-0400 Systolic blood pressure 137 mm[Hg] Dr. Waqas Scott Work Phone: [facility] Work Phone: 08-27-2021 10:09-0400 Body height 147.[address] Waqas Scott Work Phone: [facility] Work Phone: 08-27-2021 10:09-0400 Body mass index (BMI) [Ratio] 34.4 kg/m2 Dr. Waqas Scott Work Phone: [facility] Work Phone: 08-27-2021 10:09-0400 Body temperature 97.4 [degF] Dr. Waqas Scott Work Phone: [facility] Work Phone: 08-27-2021 10:09-0400 Body weight 74.[address] Waqas Scott Work Phone: [facility] Work Phone: 08-27-2021 10:09-0400 Diastolic blood pressure 77 mm[Hg] Dr. Waqas Scott Work Phone: [facility] Work Phone: 08-27-2021 10:09-0400 Heart rate 92 /min Dr. Waqas Scott Work Phone: [facility] Work Phone: 08-27-2021 10:09-0400 Respiratory rate 18 /min Dr. Waqas Scott Work Phone: [facility] Work Phone: 08-27-2021 10:09-0400 SaO2% (BldA) [Mass fraction] 100 % Dr. Waqas Scott Work Phone: [facility] Work Phone: 08-27-2021 10:09-0400 Systolic blood pressure 137 mm[Hg] Dr. Waqas Scott Work Phone: [facility] Work Phone: Encounters Encounter Date Encounter Type Care Provider Facility Start: 01-13-2025 End: 01-13-2025 ambulatory Waqas Scott [facility] Start: 11-28-2024 End: 11-28-[address] Waqas Scott MD Work Phone: -Outpatient Breast Imaging Start: 11-28-2024 End: 11-28-[address] Robinson Yepez DO -Outpatient Breast Imaging Work Phone: Start: 11-28-2024 End: 11-28-2024 ambulatory Robinson Yepez Facility:[facility] Start: 10-30-2024 End: 10-30-[address] Luis Fernando Garza MD -[facility] Work Phone: Start: 10-30-2024 End: 10-30-[address] Waqas Scott MD Work Phone: -[facility] Start: 10-03-2024 Non-patient / Non-visit Dr. Dedrick curtis MD -[facility] Work Phone: Start: 10-02-2024 Non-patient / Non-visit Dr. Dedrick curtis MD -[facility] Work Phone: Start: 10-02-2024 ambulatory Maame Damon Facility:[facility] Start: 10-02-2024 Non-patient / Non-visit Dr. Maame aguila MD -[facility] Start: 10-01-2024 ambulatory Dedrick Mckeon Facility:[facility] Start: 10-01-2024 End: 10-03-2024 Evaluation and management of inpatient Dr. Dedrick Mckeon MD -Progressive Care Unit Work Phone: Start: 10-01-2024 ambulatory Renzo Ward Facility:[facility] Start: 10-01-2024 Non-patient / Non-visit Dr. Bruce montero MD -[facility] Start: 08-01-2024 End: 08-01-[address] Zahida Arroyo MD -[facility] Work Phone: Start: 08-01-2024 End: 08-01-[facility] Start: 07-22-[address] Robinson Baker on [facility] Start: 07-22-2024 End: 07-22-[address] Alonzo John MD -[facility] Work Phone: Start: 07-22-2024 End: 07-22-2024 ambulatory [facility] Facility:[facility] Start: 07-15-2024 End: 07-15-[address] Waqas Scott MD Work Phone: [facility] Work Phone: Start: 07-15-2024 End: 07-15-[address] Waqas Scott MD -Laboratory, Specimen Work Phone: Start: 07-15-2024 End: 07-15-2024 [facility] Start: 04-15-2024 End: 04-15-[address] Robinson Yepez DO [facility] Work Phone: Start: 04-15-2024 End: 04-15-2024 ambulatory Robinson Yepez Facility:[facility] Start: 01-29-2024 End: 01-29-2024 ambulatory Waqas Scott Facility[place] Start: 01-18-2024 End: 01-18-2024 ambulatory Waqas Scott Facility:[facility] Start: 07-22-2023 End: 07-22-[address] Waqas Scott Work Phone: [facility] Work Phone: Start: 07-22-2023 End: 07-22-[address] [facility] Start: 05-29-2023 End: 05-29-[address] Waqas Scott Work Phone: [facility] Work Phone: Start: 01-30-[address] Waqas Scott Work Phone: [facility] Start: 01-30-2023 End: 01-30-[address] Waqas Scott Work Phone: [facility] Work Phone: Start: 01-24-2023 End: 01-24-[address] Waqas Scott Work Phone: [facility] Work Phone: Start: 01-19-2023 End: 01-19-[address] Waqas Scott Work Phone: [facility] Work Phone: Start: 01-19-2023 End: 01-19-[address] [facility] Start: 10-25-2022 End: 10-25-[address] Waqas Scott Work Phone: [facility] Work Phone: Start: 10-25-2022 End: 10-25-[address] Waaqs Scott [facility] Start: 10-25-[address] [facility] Start: 09-27-[address] [facility] Start: 09-26-2022 End: 09-26-[address] Waqas Scott Work Phone: [facility] Work Phone: Start: 09-26-2022 End: 09-26-[address] Waqas Scott Work Phone: [facility] Work Phone: Start: 09-20-[address] Waqas Scott Work Phone: [facility] Start: 09-20-2022 End: 09-20-[address] Waqas Scott Work Phone: [facility] Start: 09-16-2022 End: 09-16-[address] Waqas Scott Work Phone: [facility] Work Phone: Start: 09-16-2022 End: 09-16-[address] Waqas Scott Work Phone: [facility] Start: 09-13-[address] [facility] Scott [facility] Start: 07-28-[address] Waqas Scott Work Phone: [facility] Start: 07-28-2022 End: 07-28-[address] Waqas Scott Work Phone: [facility] Start: 05-23-2022 End: 05-23-[address] Waqas Scott Work Phone: [facility] Start: 05-05-2022 End: 05-05-[address] Waqas Scott Work Phone: [facility] Start: 04-26-2022 End: 04-26-[address] Waqas Scott Work Phone: [facility] Start: 04-20-2022 End: 04-20-[address] Waqas Scott Work Phone: [facility] Start: 04-13-2022 End: 04-13-[address] Waqas Scott Work Phone: [facility] Start: 04-06-2022 End: 04-06-[address] Waqas Scott Work Phone: [facility] Start: 02-01-2022 End: 02-01-[address] Waqas Scott Work Phone: [facility] Start: 01-27-2022 End: 01-27-[address] Waqas Scott Work Phone: [facility] Work Phone: Start: 01-27-2022 End: 01-27-[address] Waqas Scott Work Phone: [facility]-Outpatient Bone Densitometry Start: 01-25-2022 End: 01-25-[address] Waqas Scott Work Phone: [facility] Start: 01-24-2022 End: 01-24-[address] Waqas Scott Work Phone: [facility] Start: 01-19-2022 End: 01-19-[address] Waqas Scott Work Phone: [facility] Start: 01-07-2022 End: 01-07-[address] Waqas Scott Work Phone: [facility] Start: 01-05-2022 Non-patient / Non-visit Dr. Chandra Scott Work Phone: [facility] Start: 01-04-2022 End: 01-05-2022 Evaluation and management of inpatient Dr. Waqas Scott Work Phone: [facility]-Medical Surgical 3 Start: 01-04-2022 End: 01-05-[address] Waqas Scott Work Phone: [facility] Work Phone: Start: 01-04-2022 Non-patient / Non-visit Dr. Chandra Scott Work Phone: [facility] Start: 12-15-2021 End: 12-15-[address] Waqas Scott Work Phone: [facility] Start: 10-28-2021 End: 10-28-[address] Waqas Scott Work Phone: [facility] Start: 10-28-[address] Waqas Scott Work Phone: [facility] Start: 10-26-2021 Non-patient / Non-visit Dr. Chandra Scott Work Phone: [facility] Start: 10-26-2021 End: 10-26-[address] Waqas Scott Work Phone: [facility]-Cardiovascular Services Start: 10-21-2021 End: 10-21-[address] Waqas Scott Work Phone: [facility]-Nuclear Medicine, H Start: 10-18-2021 End: 10-18-[address] Waqas Scott Work Phone[facility] Start: 10-11-2021 End: 10-11-[address] Waqas Scott Work Phone: [facility] Start: 10-08-2021 Non-patient / Non-visit Dr. Chandra Scott Work Phone: [facility] Start: 10-08-2021 End: 10-08-[address] Waqas Scott Work Phone: [facility] Start: 10-01-2021 End: 10-01-[address] Waqas Scott Work Phone: [facility]-Laboratory, Specimen Start: 10-01-2021 End: 10-01-[address] Waqas Scott Work Phone: [facility] Start: 09-08-2021 End: 09-08-[address] Waqas Scott Work Phone: [facility] Start: 09-01-2021 End: 09-01-[address] Waqas Scott Work Phone: [facility] Start: 08-27-2021 End: 08-27-[address] Waqas Scott Work Phone: [facility] Start: 08-20-2021 End: 08-20-2021 Patient encounter procedure [facility]-Outpatient Breast Imaging Start: 08-18-2021 End: 08-18-2021 Patient encounter procedure [facility] Start: 02-10-2011 End: 02-10-2011 Patient encounter procedure Inder Thapa Work Phone: [facility] Start: 02-10-2011 Results Only Inder Thapa Work Phone: [facility] Start: 11-13-2008 End: 11-13-2008 Patient encounter procedure Inder Thapa Work Phone: [facility] Start: 11-13-2008 Results Only Inder Thapa Work Phone: [facility] Procedures Date Procedure Procedure Detail Performing Clinician Start: 11-28-2024 Screening mammograph y of right breast Dr. Waqas Scott MD Work Phone: Start: 10-03-[address] Waqas Scott MD Work Phone: Start: 10-02-2024 CT angiography of ch est with contrast Dr. Waqas Scott MD Work Phone: Start: 10-02-2024 Serum inorganic phos phate measurement Dr. Waqas Scott MD Work Phone: Start: 10-01-[address] 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 Waqas Albrecht en Work Phone: Plan of Treatment Date Care Activity Detail Author Start: 10-30-2024 Evaluation of diagnostic study results [facility] Start: 10-03-2024 Patient discharge [facility] Start: 10-03-2024 Referral to service [facility] Start: 10-02-2024 Chemotherapy care management [facility] Start: 10-01-2024 Following clinical pathway protocol [facility] Start: 10-01-2024 Ambulation without limitation [facility] Start: 10-01-2024 Assessment of risk of venous thromboembolism [facility] Start: 10-01-2024 Catheterization of vein [facility] Start: 10-01-2024 Elevation of affected extremity [facility] Start: 10-01-2024 Insertion of catheter into peripheral vein [facility] Start: 10-01-2024 Measuring intake and output [facility] Start: 10-01-2024 Notification of physician [facility] Start: 10-01-2024 Oxygen therapy [facility] Start: 10-01-2024 Patient education [facility] Start: 10-01-2024 Providing care according to standard [facility] Start: 10-01-2024 [facility] Start: 10-01-2024 Bacteria identified in Urine by Culture Urine Culture [facility] Start: 10-01-2024 Verification routine [facility] Start: 10-01-2024 Admission procedure [facility] Start: 10-01-2024 Hospital admission, emergency, from emergency room, medical nature [facility] Start: 10-01-2024 [facility] Start: 07-28-2022 Patient referral [facility] Work Phone: Start: 01-05-2022 Patient discharge [facility] Work Phone: Start: 01-04-2022 Anes integ extremities ant trunk & perineum nos ANESTH SKIN EXT/PER/ATRUNK [facility] Work Phone: Start: 01-04-2022 Bx/exc lymph node open deep axillary node BIOPSY/REMOVAL LYMPH NODES [facility] Work Phone: Start: 01-04-2022 Mastectomy simple complete MAST SIMPLE COMPLETE [facility] Work Phone: Start: 01-04-2022 Following clinical pathway protocol [facility] Work Phone: Start: 01-04-2022 Application of intermittent pneumatic compression device [facility] Work Phone: Start: 01-04-2022 Ambulation without limitation [facility] Work Phone: Start: 01-04-2022 Catheterization of vein [facility] Work Phone: Start: 01-04-2022 Incentive spirometry [facility] Work Phone: Start: 01-04-2022 Maintenance of drainage tube [facility] Work Phone: Start: 01-04-2022 Measuring intake and output [facility] Work Phone: Start: 01-04-2022 Notification of physician [facility] Work Phone: Start: 01-04-2022 Vital signs measurements [facility] Work Phone: Start: 01-04-2022 [facility] Work Phone: Start: 01-04-2022 Admission procedure [facility] Work Phone: Start: 10-08-2021 Patient referral [facility] Work Phone: Start: 08-20-2021 Ultrasonography of breast [facility] Work Phone: Cancer Ag 15-3 [Pres ence] in Serum or Plasma [facility] Cancer Ag 27-29 [Pre sence] in Serum or Plasma [facility] CBC W Auto Different ial panel - Blood [facility] Work Phone: CBC W Auto Different ial panel - Blood [facility] CBC W Auto Different ial panel - Blood [facility] CBC W Auto Different ial panel - Blood [facility] Comprehensive metabo lic 2000 panel - Serum or Plasma [facility] CT Lumbar spine [facility] CT Pelvis W contrast IV [facility] Electrocardiographic procedure [facility] Work Phone: Lactate dehydrogenas e measurement [facility] Lactate dehydrogenas e measurement [facility] Lactate dehydrogenas e measurement [facility] LDH [facility] Work Phone: Magnesium [Mass/volu me] in Serum or Plasma [facility] MG Breast - right Screening [facility] MG Breast - right Screening [facility] MG Breast - right Screening [facility] NM Whole body Bone Views [facility] Work Phone: Patient referral [facility] Work Phone: Urine culture [facility] US Heart [facility] Work Phone: [facility] Immunizations Immunization Date Immunization Notes Care Provider [facility] 01-29-2020 influenza, injectabl e, quadrivalent, preservative free Dr. Waqas Scott Work Phone: [facility] 01-29-2020 influenza, seasonal, injectable [facility] Payers Date Payer Category Payer Self-pay [id number] 2011 Medicare [id number] [facility] [id number] Unknown [id number] [id number] Unknown [id number] 2.16.8 [id number] Unknown [id number] 2.16.8 [id number] Unknown [id number] 2.16.8 [id number] Unknown [id number] 2.16.8 [id number] Unknown [id number] 2.16.8 [id number] Unknown [id number] 2.16.8 [id number] Unknown [id number] 2.16.8 [id number] Unknown [id number] 2.16.8 [id number] Unknown [id number] 2.16.8 [id number] Unknown [id number] 2.16.8 [id number] Unknown [id number] 2.16.8 [id number] Unknown [id number] 2.16.8 [id number] Unknown [id number] 2.16.8 [id number] Unknown [id number] 2.16.8 [id number] Unknown [id number] 2.16.8 [id number] Social History Date Type Detail Facility Tobacco smoking status NHIS Unknown if ever smoked [facility] Sex Assigned At Not on file [facility] Start: 03-18-2020 End: 12-28-2021 Tobacco smoking status NHIS Unknown if ever smoked [facility] Start: 03-05-2020 None [facility] Start: 03-05-2020 Spouse/ Signif icant Other [facility] Start: 03-05-2020 Non-smoker [facility] Start: 1935 Sex Assigned At Female [facility] Start: 12-28-2021 End: 10-01-2024 Tobacco smoking status NHIS Never smoked tobacco (finding) [facility] Start: 07-18-2024 Sex Female (finding) [facility] Medical Equipment Procedure Code Equipment Code Equipment Origin al Text Equipment Identifier Dates SUTURE,LIGA CLIP MED [id number] FDA Start: 01-04-2022 SUTURE,LIGA CLIP MED [id number] FDA Start: 01-04-2022 SUTURE,LIGA CLIP SM LT-100 FDA Start: 01-04-2022 SUTURE,LIGA CLIP SM LT-100 FDA Start: 01-04-2022 Ligation clip, metallic [id number] FDA Start: 01-04-2022 SUTURE,LIGA CLIP MED [id number] [...] premier protein 30 g Star t: 01-29-2024 End: 10-30-2024 SUTURE,LIGA CLIP MED [id number] FDA Start: 01-04-2022 SUTURE,LIGA CLIP MED [id number] FDA Start: 01-04-2022 SUTURE,LIGA CLIP SM LT-100 FDA Start: 01-04-2022 SUTURE,LIGA CLIP SM LT-100 FDA Start: 01-04-2022 premier protein 30 g Star t: 01-29-2024 End: 10-30-2024 SUTURE,LIGA CLIP MED LT200 FDA Start: 01-04-2022 SUTURE,LIGA CLIP MED LT200 FDA Start: 01-04-2022 SUTURE,LIGA CLIP SM LT-100 FDA Start: 01-04-2022 SUTURE,LIGA CLIP SM LT-100 FDA Start: 01-04-2022 premier protein 30 g Star t: 01-29-2024 End: 10-30-2024 Goals Date Patient Goal Desired Activity /State Functional Status Date Assessment Result Facility 10-03-2024 Functional status Ambulates [facility] Work Phone: 01-05-2022 Functional status Ambulates;Chair [facility] Work Phone: Mental Status Date Assessment Result Facility 10-03-2024 Cognitive function Voice/Name [facility] Work Phone: 10-01-2024 Cognitive function Level Of Cons ciousness Awake;Alert;Appropriate;Follow s Commands [facility] Work Phone: 07-28-2022 Cognitive function Awake;Alert;A ppropriate;Follow s Commands [facility] Work Phone: 01-05-2022 Cognitive function Level Of Cons ciousness Awake;Alert;Appropriate;Follow s Commands [facility] Work Phone: 01-04-2022 Cognitive function Voice/Name [facility] Work Phone: Clinical Notes 02-10-2023 to 10-03-2024 Note Date & Type Note Facility 10-03-2024 Hospital Discharg e instructions Additional Instructions Date of Discharge: 10/03/24 [facility] Work Phone: 10-03-2024 Discharge summary Note Date/Time October 03, 2024 10:40am [facility] Medical Records Department [address] [place] [address] Discharge Summary 10/03/24 1025 MR#: [id number] Acct: [id number] Name: NESTOR MONTES DE OCA I Rep #:[id number] : [id number] From: Dedrick Mckeon MD PCP: Dr. Waqas Scott MD Status:ADM I N Location: [place] [address] Providers Date of Admission: 10/01/24 Date of Discharge: 10/03/24 Primary Care Physician: Dr. Waqas Scott MD Reason For Visit: AFIB W/ RVR, CHF Diagnosis Discharge Diagnosis (1) Atrial fibrillation with RVR: Status: Acute Code(s): I48.91 - Unspecified atrial fibrillation (2) Congestive heart failure: Status: Acute Code(s): I50.9 - Heart failure, unspecified (3) Acute cystitis: Status: Acute Code(s): N30.00 - Acute cystitis without hematuria Plan Patient is an 89-year-old lady presented with progressive shortness of breath, palpitation and left-sided chest discomfort. Admitted to a monitored bed for further management 1. Acute congestive heart failure preserved ejection ? Unspecified at this point. Admitted to a monitored bed treatment initiated with strict input and output, daily weight, low-sodium diet, fluid restriction and IV furosemide. As part of patient's management 2D echo serial cardiac enzymes ordered ? 10/02/2024; patient 2D echo results pending. ? 10/03/2024; patient 2D echo demonstrated estimated EF of 55 to 60%. She was also noted to have moderate mitral regurgitation and mild tricuspid regurgitation. Patient responded to diuretic therapy. A follow-up appointment was set up with cardiology on discharge 2. Paroxysmal A-fib with RVR ? Patient [...] with apixaban 2.5 mg p.o. twice daily ? 10/02/2024; patient apixaban dose was adjusted from 2.5 mg twice daily to 5 mg twice daily ? Prescription was written for metoprolol and apixaban with plans for patient tofollow-up with Dr. Garza as outpatient for follow-up of her heart failure 3. Acute cystitis with Citrobacter youngae ? Present on admission patient started on ceftriaxone urine culture sent ? 10/02/2024; patient remains on ceftriaxone urine cultures pending ? 10/03/2024; patient was discharged on ciprofloxacin based on culture result. Referral was placed to Dr. Duke for patient to be evaluated for her recurrentUTI 4. Hypertension ? Blood pressure controlled, home medications continued with dose adjustment as needed ? Patient was on lisinopril and amlodipine discontinued patient was started on metoprolol 5. Chronic kidney disease stage III ? Ordered daily BMP for follow-up 6. Anemia ? Secondary to chronic disorder monitoring H&H and transfuse if patient becomes symptomatic or hemoglobin falls below 7 7.. History of breast cancer ? Involving the left breast status postmastectomy with subsequent radiation. Patient is currently on anastrozole and has since remained in remission. With patient still complaining of left-sided pleuritic chest pain ordered CTA 8. GERD ? On PPI 9. Osteoporosis ?patient is on denosumab 10. DVT prophylaxis ? Patient started on apixaban Time spent in the patient's overall evaluation,decision-making process, review of diagnostic data, adjustment of management, discussion with other providers, nursing nursing and ancillary staff involved in patient's care documentation, 35minutes Medications at Discharge Home Medications cholecalciferol (vitamin D3) 50 mcg (2,000 unit) capsule 2,000 unit PO DAILY SUPPLEMENT 03/05/20 cranberry extract-vitamin C 250 mg-60 mg capsule 2 ea PO DAILY URINARY HEALTH 03/05/20 denosumab 60 mg/mL subcutaneous syringe (Prolia) 60 mg subcut [id number] 09/20/22 premier protein 30 g PO .every other day 01/29/24 anastrozole 1 mg tablet 1 mg PO DAILY #90 tabs 07/22/24 ascorbic acid-ascorbate sodium (vitamin C) 500 mg chewable tablet 1 tab PO DAILY07/22/24 diphenhydramine HCl 25 mg tablet (Benadryl Allergy) 25 mg PO QHS PRN allergy symptoms 07/22/24 omeprazole 20 mg capsule,delayed release 20 mg PO QHS 10/01/24 oxybutynin chloride 5 mg tablet,extended release 24 hr 5 mg PO DAILY 10/01/24 apixaban 5 mg tablet (Eliquis) 5 mg PO BID #60 tabs 10/03/24 ciprofloxacin HCl 250 mg tablet 250 mg PO BID #14 tabs 10/03/24 furosemide 40 mg tablet (Lasix) 40 mg PO DAILY #30 tabs 10/03/24 metoprolol tartrate 25 mg tablet 12.5 mg (1/2 x 25 mg) PO BID 30 days #30 tabs 10/03/24 potassium chloride 20 mEq tablet,extended release(part/cryst) 20 meq PO DAILY #30 tabs 10/03/24 Physical Exam Narrative GENERAL: cooperative HEENT: Atraumatic; normocephalic EYES; Anicteric, Normal Conjunctiva NECK; supple, normal thyroid, RESPIRATORY: Diminished to auscultation CARDIOVASCULAR: Irregularly irregular GI: soft, normoactive bowel sounds, : No Renal angle tenderness; MUSCULOSKELETAL: no muscle wasting NEURO: Awake; no lateralizing signs. SKIN: As described above PSYCH; Flat affect Weight / BMI Weight Weight: 68.7 kg Body Mass Index (BMI) 31.6 ABG / Lab / Microbiology Data 10/03/24 06:00 10/03/24 06:00 Laboratory: Laboratory Results - last 24 hr 10/03/24 06:00: WBC 6.9, RBC 3.54 L, Hgb 10.4 L, Hct 31.7 L, MCV 89.5, MCH 29.4,MCHC 32.8, RDW Std Deviation 49.0 H, RDW Coeff of Kierra 14.9 H, Plt Count 292, MPV10.8, Immature Gran % (Auto) 0.300, Neut % (Auto) 73.4 H, Lymph % (Auto) 10.9 L,Stanislaus % (Auto) 10.4 H, Eos % (Auto) 4.1, Baso % (Auto) 0.9, Absolute Neuts (auto)5.1, Absolute Lymphs (auto) 0.75 L, Nucleated RBC % 0, Sodium 136, Potassium 3.6, Chloride 96 L, Carbon Dioxide 27.7, Anion Gap 12, BUN 31 H, Creatinine 1.31H, Estim Creat Clear Calc 25.67 L, Est GFR (MDRD) Non-Af 39 L, BUN/Creatinine Ratio 23.8 H, Glucose 73, Calcium 8.7 Microbiology: Microbiology 10/01/24 11:55 Urine, Clean Catch Urine Culture - Final Citrobacter youngae 10/01/24 11:55 Urine, Clean Catch Urine Culture - Final Citrobacter youngae Radiography Diagnostic Testing: Radiology Impression Echocardiogram 10/01/24 15:29 Interpretation Summary The estimated ejection fraction is 55???60 %. Normal LV systolic function Moderate mitral regurgitation Mild tricuspid regurgitation. In comparison to previous echocardiogram MR is moderate. No pericardial effusion. Ordering Physician: Dedrick Mckeon Referring Physician: Waqas Scott Performed By: Earline Cosme RDCS Chest CTA 10/02/24 11:00 IMPRESSION: No demonstrated PE, or thoracic aortic aneurysm or dissection Diffuse interstitial edema in both lung melendez with free-flowing bilateral pleural effusions and bibasilar atelectasis consistent with CHF Cardiomegaly with calcified coronary vessels No suspicious adenopathy Degenerative bony changes Diffuse atherosclerosis Reading Location: [id number] D/C Instructions Discharge Diet: 8 Cup Fluid Restriction and 2000 mg Sodium Diet Discharge Activity: Return to Normal Activity Call your doctor if you observe: Fever of 101 or Higher, Shortness of breath, Fainting spells and Chest pain DC O2, CPAP, BIPAP Needs Home O2 Discharge instructions: No Meaningful Use Info Meaningful Use Meaningful Use Diagnoses (Choose all that apply): CHF CHF PRANEETH/ARB ordered at discharge?: Yes Documented LVEF (%): 60 Ischemic Stroke Statin Dosing Therapy Reference: STATIN DOSE THERAPY REFERENCE: * Patients > 75 years receive moderate or high dose statin therapy. * Patients 75 years or YOUNGER should receive HIGH intensity statin dose unless contraindicated. You will be required to document reason for non-treatment if statin daily dose does not meet guidelines. HIGH DOSE STATIN THERAPY DAILY Atorvastatin > than or = to 40 mg Rosuvastatin > than or = to 20 mg Amlodipine + Atorvastatin > than or = to 2.5/40 mg Ezetimibe + Simvastatin 10/80 mg Simvastatin 80mg Discharge Plan Admission Admit Date/Time: 10/01/24 13:06 Attending Provider: Dedrick Mckeon Primary Care Provider: Waqas Scott Discharge Orders/Prescriptions Prescriptions: New Eliquis 5 mg Tablet 5 mg PO BID Qty: 60 0RF furosemide [Lasix] 40 mg tablet 40 mg PO DAILY Qty: 30 0RF metoprolol tartrate 25 mg Tablet 12.5 mg PO BID 30 Days Qty: 30 0RF potassium chloride 20 mEq tablet,ER particles/crystals 20 meq PO DAILY Qty: 30 0RF ciprofloxacin HCl 250 mg tablet 250 mg PO BID Qty: 14 0RF Continued Prolia 60 mg/mL syringe 60 mg subcut [id number] premier protein 30 g PO .every other day diphenhydramine HCl [Benadryl Allergy] 25 mg tablet 25 mg PO QHS PRN (Reason: allergy symptoms) ascorbic acid-ascorbate sodium 500 mg tablet,chewable 1 tab PO DAILY anastrozole 1 mg tablet 1 mg PO DAILY Qty: 90 3RF cholecalciferol (vitamin D3) 50 MCG capsule 2,000 unit PO DAILY cranberry extract-vitamin C 1 EACH capsule 2 ea PO DAILY oxybutynin chloride 5 mg tablet extended release 24hr 5 mg PO DAILY omeprazole 20 mg capsule,delayed release(DR/EC) 20 mg PO QHS Discontinued aspirin [Adult Aspirin Regimen] 81 mg tablet,delayed release (DR/EC) 81 mg PO .every other day lisinopril 20 MG tablet 20 mg PO DAILY amlodipine 5 MG tablet 10 mg PO DAILY Referrals / Follow Up: Waqas Scott MD [Primary Care Provider] - Within 1 Week Luis Fernando Garza MD [Med Staff - Active Staff] - Within 2 Weeks (Congestive heart failure, new onset A-fib) Goldie Duke MD [Med Staff - Active Staff] - Within 2 Weeks (Recurrent UTI) Disposition Disposition (needs filled in before D/C Order can be placed): Home, Self Care Charges/Coding Visit Charges Inpatient E&M: 86473 Disch Hosp >30min 10/03/24 1040 <Electronically signed by Dedrick Mckeon MD> Cosigner Signature (if applicable): CC: Dr. Dedrick Mckeon MD; Dr. Waqas Scott MD~ Signed [facility] Work Phone: 1(985) 153-178007-03-2025 Discharge summary [facility] Medical Records Department [address] [place] [address] Discharge Summary 10/03/24 1025 MR#: [id number] Acct: [id number] Name: NESTOR MONTES DE OCA I Rep #:[id number] : 1935 [id number] From: Dedrick Mckeon MD PCP: Dr. Waqas Scott MD Status:ADM I N Location: [place] [address] Providers Date of Admission: 10/01/24 Date of Discharge: 10/03/24 Primary Care Physician: Dr. Waqas Scott MD Reason For Visit: AFIB W/ RVR, CHF Diagnosis Discharge Diagnosis (1) Atrial fibrillation with RVR: Status: Acute Code(s): I48.91 - Unspecified atrial fibrillation (2) Congestive heart failure: Status: Acute Code(s): I50.9 - Heart failure, unspecified (3) Acute cystitis: Status: Acute Code(s): N30.00 - Acute cystitis without hematuria Plan Patient is an 89-year-old lady presented with progressive shortness of breath, palpitation and left-sided chest discomfort. Admitted to a monitored bed for further management 1. Acute congestive heart failure preserved ejection ? Unspecified at this point. Admitted to a monitored bed treatment initiated with strict input and output, daily weight, low-sodium diet, fluid restriction and IV furosemide. As part of patient's management 2D echo serial cardiac enzymes ordered ? 10/02/2024; patient 2D echo results pending. ? 10/03/2024; patient 2D echo demonstrated estimated EF of 55 to 60%. She was also noted to have moderate mitral regurgitation and mild tricuspid regurgitation. Patient responded to diuretic therapy. Afollow-up appointment was set up with cardiology on discharge 2. Paroxysmal A-fib with RVR ? Patient [...] with apixaban 2.5 mg p.o. twice daily ? 10/02/2024; patient apixaban dose was adjusted from 2.5 mg twice daily to 5 mg twice daily ? Prescription was written for metoprolol and apixaban with plans for patient tofollow-up with Dr. Garza as outpatient for follow-up of her heart failure 3. Acute cystitis with Citrobacter youngae ? Present on admission patient started on ceftriaxone urine culture sent ? 10/02/2024; patient remains on ceftriaxone urine cultures pending ? 10/03/2024; patient was discharged on ciprofloxacin based on culture result. Referral was placed toDr. Duke for patient to be evaluated for her recurrentUTI 4. Hypertension ? Blood pressure controlled, home medications continued with dose adjustment as needed ? Patient was on lisinopril and amlodipine discontinued patient was started on metoprolol 5. Chronic kidney disease stage III ? Ordered daily BMP for follow-up 6. Anemia ? Secondary to chronic disorder monitoring H&H and transfuse if patient becomes symptomatic or hemoglobin falls below 7 7.. History of breast cancer ? Involving the left breast status postmastectomy with subsequent radiation. Patient is currently on anastrozole and has since remained in remission. With patient still complaining of left-sided pleuritic chest pain ordered CTA 8. GERD ? On PPI 9. Osteoporosis ?patient is on denosumab 10. DVT prophylaxis ? Patient started on apixaban Time spent in the patient's overall evaluation,decision-making process, review of diagnostic data, adjustment of management, discussion with other providers, nursing nursing and ancillary staff involved in patient's care documentation, 35minutes Medications at Discharge Home Medications cholecalciferol (vitamin D3) 50 mcg (2,000 unit) capsule 2,000 unit PO DAILY SUPPLEMENT 03/05/20 cranberry extract-vitamin C 250 mg-60 mg capsule 2 ea PO DAILY URINARY HEALTH 03/05/20 denosumab 60 mg/mL subcutaneous syringe (Prolia) 60 mg subcut [id number] 09/20/22 premier protein 30 g PO .every other day 10/28/24 anastrozole 1 mg tablet 1 mg PO DAILY #90 tabs 07/22/24 ascorbic acid-ascorbate sodium (vitamin C) 500 mg chewable tablet 1 tab PO DAILY07/22/24 diphenhydramine HCl 25 mg tablet (Benadryl Allergy) 25 mg PO QHS PRN allergy symptoms 07/22/24 omeprazole 20 mg capsule,delayed release 20 mg PO QHS 10/01/24 oxybutynin chloride 5 mg tablet,extended release 24 hr 5 mg PO DAILY 10/01/24 apixaban 5 mg tablet (Eliquis) 5 mg PO BID #60 tabs 10/03/24 ciprofloxacin HCl 250 mg tablet 250 mg PO BID #14 tabs 10/03/24 furosemide 40 mg tablet (Lasix) 40 mg PO DAILY #30 tabs 10/03/24 metoprolol tartrate 25 mg tablet 12.5 mg (1/2 x 25 mg) PO BID 30 days #30 tabs 10/03/24 potassium chloride 20 mEq tablet,extended release(part/cryst) 20 meq PO DAILY #30 tabs 10/03/24 Physical Exam Narrative GENERAL: cooperative HEENT: Atraumatic; normocephalic EYES; Anicteric, Normal Conjunctiva NECK; supple, normal thyroid, RESPIRATORY: Diminished to auscultation CARDIOVASCULAR: Irregularly irregular GI: soft, normoactive bowel sounds, : No Renal angle tenderness; MUSCULOSKELETAL: no muscle wasting NEURO: Awake; no lateralizing signs. SKIN: As described above PSYCH; Flat affect Weight / BMI Weight Weight: 68.7 kg Body Mass Index (BMI) 31.6 ABG / Lab / Microbiology Data 10/03/24 06:00 10/03/24 06:00 Laboratory: Laboratory Results - last 24 hr 10/03/24 06:00: WBC 6.9, RBC 3.54 L, Hgb 10.4 L, Hct 31.7 L, MCV 89.5, MCH 29.4,MCHC 32.8, RDW Std Deviation 49.0 H, RDW Coeff of Kierra 14.9 H, Plt Count 292, MPV10.8, Immature Gran % (Auto) 0.300, Neut % (Auto) 73.4 H, Lymph % (Auto) 10.9 L,Stanislaus % (Auto) 10.4 H, Eos % (Auto) 4.1, Baso % (Auto) 0.9, Absolute Neuts (auto)5.1, Absolute Lymphs (auto) 0.75 L, Nucleated RBC % 0, Sodium 136, Potassium 3.6, Chloride 96 L, Carbon Dioxide 27.7, Anion Gap 12, BUN 31 H, Creatinine 1.31H, Estim Creat Clear Calc 25.67 L, Est GFR (MDRD) Non-Af 39 L, BUN/Creatinine Ratio 23.8 H, Glucose 73, Calcium 8.7 Microbiology: Microbiology 10/01/24 11:55 Urine, Clean Catch Urine Culture - Final Citrobacter youngae 10/01/24 11:55 Urine, Clean Catch Urine Culture - Final Citrobacter youngae Radiography Diagnostic Testing: Radiology Impression Echocardiogram 10/01/24 15:29 Interpretation Summary The estimated ejection fraction is 55???60 %. Normal LV systolic function Moderate mitral regurgitation Mild tricuspid regurgitation. In comparison to previous echocardiogram MR is moderate. No pericardial effusion. Ordering Physician: Dedrick Mckeon Referring Physician: Waqas Scott Performed By: Earline Cosme RDCS Chest CTA 10/02/24 11:00 IMPRESSION: No demonstrated PE, or thoracic aortic aneurysm or dissection Diffuse interstitial edema in both lung melendez with free-flowing bilateral pleural effusions and bibasilar atelectasis consistent with CHF Cardiomegaly with calcified coronary vessels No suspicious adenopathy Degenerative bony changes Diffuse atherosclerosis Reading Location: [id number]/Ben Instructions Discharge Diet: 8 Cup Fluid Restriction and 2000 mg Sodium Diet Discharge Activity: Return to Normal Activity Call your doctor if you observe: Fever of 101 or Higher, Shortness of breath, Fainting spells and Chest pain DC O2, CPAP, BIPAP Needs Home O2 Discharge instructions: No Meaningful Use Info Meaningful Use Meaningful Use Diagnoses (Choose all that apply): CHF CHF PRANEETH/ARB ordered at discharge?: Yes Documented LVEF (%): 60 Ischemic Stroke Statin Dosing Therapy Reference: STATIN DOSE THERAPY REFERENCE: * Patients > 75 years receive moderate or high dose statin therapy. * Patients 75 years or YOUNGER should receive HIGH intensity statin dose unless contraindicated. You will be required to document reason for non-treatment if statin daily dose does not meet guidelines. HIGH DOSE STATIN THERAPY DAILY Atorvastatin > than or = to 40 mg Rosuvastatin > than or = to 20 mg Amlodipine + Atorvastatin > than or = to 2.5/40 mg Ezetimibe + Simvastatin 10/80 mg Simvastatin 80mg Discharge Plan Admission Admit Date/Time: 10/01/24 13:06 Attending Provider: Dedrick Mckeon Primary Care Provider: Waqas Scott Discharge Orders/Prescriptions Prescriptions: New Eliquis 5 mg Tablet 5 mg PO BID Qty: 60 0RF furosemide [Lasix] 40 mg tablet 40 mg PO DAILY Qty: 30 0RF metoprolol tartrate 25 mg Tablet 12.5 mg PO BID 30 Days Qty: 30 0RF potassium chloride 20 mEq tablet,ER particles/crystals 20 meq PO DAILY Qty: 30 0RF ciprofloxacin HCl 250 mg tablet 250 mg PO BID Qty: 14 0RF Continued Prolia 60 mg/mL syringe 60 mg subcut [id number] premier protein 30 g PO .every other day diphenhydramine HCl [Benadryl Allergy] 25 mg tablet 25 mg PO QHS PRN (Reason: allergy symptoms) ascorbic acid-ascorbate sodium 500 mg tablet,chewable 1 tab PO DAILY anastrozole 1 mg tablet 1 mg PO DAILY Qty: 90 3RF cholecalciferol (vitamin D3) 50 MCG capsule 2,000 unit PO DAILY cranberry extract-vitamin C 1 EACH capsule 2 ea PO DAILY oxybutynin chloride 5 mg tablet extended release 24hr 5 mg PO DAILY omeprazole 20 mg capsule,delayed release(DR/EC) 20 mg PO QHS Discontinued aspirin [Adult Aspirin Regimen] 81 mg tablet,delayed release (DR/EC) 81 mg PO .every other day lisinopril 20 MG tablet 20 mg PO DAILY amlodipine 5 MG tablet 10 mg PO DAILY Referrals / Follow Up: Waqas Scott MD [Primary Care Provider] - Within 1 Week Luis Fernando Garza MD [Med Staff - Active Staff] - Within 2 Weeks (Congestive heart failure, new onset A-fib) Goldie Duke MD [Med Staff - Active Staff] - Within 2 Weeks (Recurrent UTI) Disposition Disposition (needs filled in before D/C Order can be placed): Home, Self Care Charges/Coding Visit Charges Inpatient E&M: 34279 Disch Hosp >30min 10/03/24 1040 Cosigner Signature (if applicable): CC: Dr. Dedrick Mckeon MD; Dr. Waqas Scott MD~ Signed [facility]07-03-2025 [facility] Medical Records Department [address] [place] [address] Discharge Summary 10/03/24 1025 MR#: [id number] Acct: [id number] Name: NESTOR MONTES DE OCA I Rep #: [id number] : 1935 [id number] From: Dedrick Mckeon MD PCP: Dr. Waqas Scott MD Status:ADM IN Location: [place] [address] Providers Date of Admission: 10/01/24 Date of Discharge: 10/03/24 Primary Care Physician: Dr. Waqas Scott MD Reason For Visit: AFIB W/ RVR, CHF Diagnosis Discharge Diagnosis (1) Atrial fibrillation with RVR: Status: Acute Code(s): I48.91 - Unspecified atrial fibrillation (2) Congestive heart failure: Status: Acute Code(s): I50.9 - Heart failure, unspecified (3) Acute cystitis: Status: Acute Code(s): N30.00 - Acute cystitis without hematuria Plan Patient is an 89-year-old lady presented with progressive shortness of breath, palpitation and left- sided chest discomfort. Admitted to a monitored bed for further management 1. Acute congestive heart failure preserved ejection ??? Unspecified at this point. Admitted to a monitored bed treatment initiated with strict input and output, daily weight, low-sodium diet, fluid restriction and IV furosemide. As part of patient's management 2D echo serial cardiac enzymes ordered ??? 10/02/2024; patient 2D echo results pending. ??? 10/03/2024; patient 2D echo demonstrated estimated EF of 55 to 60%. She was also noted to have moderate mitral regurgitation and mild tricuspid regurgitation. Patient responded to diuretic therapy. A follow-up appointment was set up with cardiology on discharge 2. Paroxysmal A-fib with RVR ??? Patient presented with rapid ventricular response in the emergency department however at the time of admission patient heart rate was below 100. Plan will be to start Cardizem drip to be titrated to keep heart rate less than 100 if patient rapid ventricular response recurrence. As part of patient's management ordered TSH 2D echo and patient started on systemic anticoagulation with apixaban 2.5 mg p.o. twice daily ??? 10/02/2024; patient apixaban dose was adjusted from 2.5 mg twice daily to 5 mg twice daily ??? Prescription was written for metoprolol and apixaban with plans for patient to follow-up with Dr. Garza as outpatient for follow-up of her heart failure 3. Acute cystitis with Citrobacter youngae ??? Present on admission patient started on ceftriaxone urine culture sent ??? 10/02/2024; patient remains on ceftriaxone urine cultures pending ??? 10/03/2024; patient was discharged on ciprofloxacin based on culture result. Referral was placed to Dr. Duke for patient to be evaluated for her recurrent UTI 4. Hypertension ??? Blood pressure controlled, home medications continued with dose adjustment as needed ??? Patient was on lisinopril and amlodipine discontinued patient was started on metoprolol 5. Chronic kidney disease stage III ??? Ordered daily BMP for follow-up 6. Anemia ??? Secondary to chronic disorder monitoring H H and transfuse if patient becomes symptomatic or hemoglobin falls below 7 7.. History of breast cancer ??? Involving the left breast status postmastectomy with subsequent radiation. Patient is currently on anastrozole and has since remained in remission. With patient still complaining of left-sided pleuritic chest pain ordered CTA 8. GERD ??? On PPI 9. Osteoporosis ???patient is on denosumab 10. DVT prophylaxis ??? Patient started on apixaban Time spent in the patient's overall evaluation,decision-making process, review of diagnostic data, adjustment of management, discussion with other providers, nursing nursing and ancillary staff involved in patient's care documentation, 35 minutes Medications at Discharge Home Medications cholecalciferol (vitamin D3) 50 mcg (2,000 unit) capsule 2,000 unit PO DAILY SUPPLEMENT 03/05/20 cranberry extract-vitamin C 250 mg-60 mg capsule 2 ea PO DAILY URINARY HEALTH 03/05/20 denosumab 60 mg/mL subcutaneous syringe (Prolia) 60 mg subcut [id number] 09/20/22 premier protein 30 g PO .every other day 01/29/24 anastrozole 1 mg tablet 1 mg PO DAILY #90 tabs 07/22/24 ascorbic acid-ascorbate sodium (vitamin C) 500 mg chewable tablet 1 tab PO DAILY 07/22/24 diphenhydramine HCl 25 mg tablet (Benadryl Allergy) 25 mg PO QHS PRN allergy symptoms 07/22/24 omeprazole 20 mg capsule,delayed release 20 mg PO QHS 10/01/24 oxybutynin chloride 5 mg tablet,extended release 24 hr 5 mg PO DAILY 10/01/24 apixaban 5 mg tablet (Eliquis) 5 mg PO BID #60 tabs 10/03/24 ciprofloxacin HCl 250 mg tablet 250 mg PO BID #14 tabs 10/03/24 furosemide 40 mg tablet (Lasix) 40 mg PO DAILY #30 tabs 10/03/24 metoprolol tartrate 25 mg tablet 12.5 mg (1/2 x 25 mg) PO BID 30 days #30 tabs 10/03/24 potassium chloride 20 mEq tablet,extended release(part/cryst) 20 meq PO DAILY #30 tabs 10/03/24 Physical Exam Narrative GE (more content not included)...[facility]07-02-2025 Progress note Author Dedrick Mckeon [facility] Note Date/Time October 02, 2024 10:09 am [facility] Medical Records Department [address] [place] [id number] Progress Note - Hospitalist 10/02/24 0730 MR#: [id number] Acct: [id number] Name: NESTOR MONTES DE OCA I Rep #:[id number] : 1935 89 From: Dedrick Mckeon MD PCP: Dr. Waqas Scott MD Status:ADM I N Location: [place] [address] Reason for Visit Reason for Visit: Diagnoses Unspecified atrial fibrillation (10/01/24) Heart failure, unspecified (10/01/24) Acute cystitis without hematuria (10/01/24) Subjective Subjective Patient reports having experienced significant amount of urine output. Patient I's and O measurement however not accurate. Scheduled to undergo 2D echo eval Objective Data Objective Data Vital Signs: Vital Signs Temp Pulse Resp BP Pulse Ox O2 Del Method O2 Flow Rate 97.8 F 81 18 133/73 H 97 Nasal Cannula 3 10/02/24 06:30 10/02/24 06:30 10/02/24 06:30 10/02/24 06:30 10/02/24 06:30 10/02/24 06:30 10/02/24 06:30 Oxygen Flow Rate (L/min) 3 Oxygen Delivery Method Nasal Cannula Weight: 70.3 kg Body Mass Index (BMI) 32.3 Intake & Output: Intake and Output for Last 24 Hours 09/30/24 10/01/24 10/02/24 23:59 23:59 23:59 Intake Total 650 / 650 Output Total 200 / 200 Balance 450 / 450 Lab / Micro Data 10/02/24 06:18 10/02/24 06:18 Labs: Laboratory Results - last 24 hr 10/01/24 11:00: WBC 9.1, RBC 3.72 L, Hgb 10.9 L, Hct 34.1 L, MCV 91.7, MCH 29.3,MCHC 32.0, RDW Std Deviation 51.1 H, RDW Coeff of Kierra 15.5 H, Plt Count 317, MPV11.0, Immature Gran % (Auto) 0.500, Neut % (Auto) 80.9 H, Lymph % (Auto) 8.3 L, Stanislaus % (Auto) 8.5, Eos % (Auto) 1.1, [...] Sl. Cloudy, Urine pH 6.0, Ur Specific Forest 1.015, Urine Protein 30 H, Urine Glucose (UA) Normal, Urine Ketones Negative, Urine Occult Blood 10 H, Urine Nitrite Positive H, Urine Bilirubin Negative, Urine Urobilinogen Normal, Ur Leukocyte Esterase 500 H, Urine RBC 0 SEEN, Urine WBC 10-25 SEEN, Ur Squamous Epith Cells 0 SEEN, Ur RenalEpithelial Cell 0- 5 SEEN, Urine Bacteria 2+, Urine Mucus 0 SEEN 10/01/24 16:37: TSH 2.310 10/02/24 06:18: WBC 6.9, RBC 3.47 L, Hgb 10.2 L, Hct 31.4 L, MCV 90.5, MCH 29.4,MCHC 32.5, RDW Std Deviation 50.5 H, RDW Coeff of Kierra 15.2 H, Plt Count 296, MPV10.7, Immature Gran % (Auto) 0.100, Neut % (Auto) 73.6 H, Lymph % (Auto) 11.2 L,Stanislaus % (Auto) 10.2 H, Eos % (Auto) 4.2, Baso % (Auto) 0.7, Absolute Neuts (auto)5.1, Absolute Lymphs (auto) 0.77 L, Nucleated RBC % 0 Radiography Diagnostic Testing: Radiology Impression Chest X-Ray 10/01/24 10:56 IMPRESSION: Interstitial edema with blunting of both costophrenic angle suggesting associated pleural effusions. Findings suggest pulmonary vascular congestion/CHF though a diffuse inflammatory process could also cause similar findings. Follow-up recommended to ensure resolution Reading Location: [id number] Venous Doppler Study 10/01/24 10:56 Interpretation Summary Chronic deep vein thrombosis noted in the left common femoral vein. Deep veins of the right lower extremity are patent and compressible segmentally.There is no evidence of right lower extremity deep vein thrombosis. The bilateral great saphenous veins appear patent and compressible segmentally. Ordering Physician: Renzo Ward Referring Physician: Waqas Scott Performed By: Nola Sol RVT Physical Exam Narrative GENERAL: cooperative HEENT: Atraumatic; normocephalic EYES; Anicteric, Normal Conjunctiva NECK; supple, normal thyroid, RESPIRATORY: Diminished to auscultation CARDIOVASCULAR: Irregularly irregular GI: soft, normoactive bowel sounds, : No Renal angle tenderness; EXTREMITIES: Bilateral pedal edema with an area of erythema involving the left montenegro MUSCULOSKELETAL: no muscle wasting NEURO: Awake; no lateralizing signs. SKIN: As described above PSYCH; Flat affect Assessment & Plan Assessment/Plan (1) Atrial fibrillation [...] management 2D echo serial cardiac enzymes ordered ? 10/02/2024; patient 2D echo results pending. 2. Paroxysmal A-fib with RVR ? Patient [...] with apixaban 2.5 mg p.o. twice daily ? 10/02/2024; patient apixaban dose was adjusted from 2.5 mg twice daily to 5 mg twice daily 3. Acute cystitis ? Present on admission patient started on ceftriaxone urine culture sent ? 10/02/2024; patient remains on ceftriaxone urine cultures pending 4. Hypertension ? Blood pressure controlled, home [...] on anastrozole and has since remained in remission. With patient still complaining of left-sided pleuritic chest pain ordered CTA 8. GERD ? On PPI 9. Osteoporosis ?patient is on denosumab 10. DVT prophylaxis ? Patient started on apixaban Time spent in the patient's overall evaluation,decision-making process, review of diagnostic data, adjustment of management, discussion with other providers, nursing nursing and ancillary staff involved in patient's care documentation, 36minutes Charges/Coding Visit Charges Inpatient E&M: 54227 Subs Hosp L2 10/02/24 1009 <Electronically signed by Dedrick Mckeon MD> Cosigner Signature (if applicable): CC: ~ Signed [facility] Work Phone: 1(746) 241-657607-02-2025 Radiology Diagnostic study note [facility] Imaging Services [address] [place], [place] [id number] CTA Chest W/WO Contrast MR#: [id number] Acct: [id number] Name: NESTOR MONTES DE OCA I Rep #: [id number] : 1935 F 89 From: Salud Chiu MD PCP: Dr. Waqas Scott MD Status: ADM I N Study:CTA Chest W/WO Contrast Date of Exam: 10/02/24 Exam# [id number] Ordering Dr: Leann Mckeon MD PROCEDURE: CTA CHEST W/WO CONTRAST 10/02/2024 REASON FOR EXAM: LEFT-SIDED PLEURITIC CHEST PAIN TECHNIQUE: CTA CHEST W/WO CONTRAST Multiplanar Sagittal and Coronal images were obtained. CONTRAST: Isovue 370 VOLUME: 100 mL One or more dose reduction techniques were used (e.g., Automated exposure control, adjustment of the mA and/or kV according to patient size, use of iterative reconstruction technique). RADIATION DOSE SUMMARY: CTDlvol: 26.58 mGy DLP: 393.76 mGycm COMPARISON: 2021 # of known CTs in the past 12 months: 0 # of known Cardiac Nuclear Medicine Studies in the past 12 months: 0 FINDINGS: No filling defects are identified within the pulmonary arteries to suspect PE. Peripheral calcifications in the thoracic aorta without aneurysm or dissection. Lung windows show diffuse interstitial edema in both lung melendez with free- flowing bilateral pleural effusions, [id number]-[id number], and bibasilar atelectasis suggesting CHF. There is cardiomegaly with calcified coronary vessels. No suspicious axillary, mediastinal or perihilar adenopathy. Stable low-density nodules in the thyroid gland. The esophagus is mildly dilated proximally and fluid-filled distally suggesting there may be motility issues. There is no significant hiatal hernia. Limited cuts through the upper abdomen show diffuse fatty infiltration of the liver and atherosclerotic calcifications. Bony structures show osteopenia with an exaggerated dorsal kyphotic curvature and extensive degenerative changes. No acute fracture or suspicious osseous lesion CT/CTA Chest W/WO Contrast IMPRESSION: No demonstrated PE, or thoracic aortic aneurysm or dissection Diffuse interstitial edema in both lung melendez with free-flowing bilateral pleural effusions and bibasilar atelectasis consistent with CHF Cardiomegaly with calcified coronary vessels No suspicious adenopathy Degenerative bony changes Diffuse atherosclerosis Reading Location: [facility] CC: Dr. Dedrick Mckeon MD; Dr. Waqas Scott MD ~ City Carrier Assistant: Signed [facility]07-02-2025 Progress note [facility] Medical Records Department [address] [place] [address] Progress Note - Hospitalist 10/02/24 0730 MR#: [id number] Acct: [id number] Name: NESTOR MONTES DE OCA I Rep #:[id number] : 1935 89 From: Dedrick Mckeon MD PCP: Dr. Waqas Scott MD Status:ADM I N Location: [place] [address] Reason for Visit Reason for Visit: Diagnoses Unspecified atrial fibrillation (10/01/24) Heart failure, unspecified (10/01/24) Acute cystitis without hematuria (10/01/24) Subjective Subjective Patient reports having experienced significant amount of urine output. Patient I's and O measurement however not accurate. Scheduled to undergo 2D echo eval Objective Data Objective Data Vital Signs: Vital Signs Temp Pulse Resp BP Pulse Ox O2 Del Method O2 Flow Rate 97.8 F 81 18 133/73 H 97 Nasal Cannula 3 10/02/24 06:30 10/02/24 06:30 10/02/24 06:30 10/02/24 06:30 10/02/24 06:30 10/02/24 06:30 10/02/24 06:30 Oxygen Flow Rate (L/min) 3 Oxygen Delivery Method Nasal Cannula Weight: 70.3 kg Body Mass Index (BMI) 32.3 Intake & Output: Intake and Output for Last 24 Hours 09/30/24 10/01/24 10/02/24 23:59 23:59 23:59 Intake Total 650 / 650 Output Total 200 / 200 Balance 450 / 450 Lab / Micro Data 10/02/24 06:18 10/02/24 06:18 Labs: Laboratory Results - last 24 hr 10/01/24 11:00: WBC 9.1, RBC 3.72 L, Hgb 10.9 L, Hct 34.1 L, MCV 91.7, MCH 29.3,MCHC 32.0, RDW Std Deviation 51.1 H, RDW Coeff of Kierra 15.5 H, Plt Count 317, MPV11.0, Immature Gran % (Auto) 0.500, Neut % (Auto) 80.9 H, Lymph % (Auto) 8.3 L, Stanislaus % (Auto) 8.5, Eos % (Auto) 1.1, [...] Sl. Cloudy, Urine pH 6.0, Ur Specific Forest 1.015, Urine Protein 30 H, Urine Glucose (UA) Normal, Urine Ketones Negative, Urine Occult Blood 10 H, Urine Nitrite Positive H, Urine Bilirubin Negative, Urine Urobilinogen Normal, Ur Leukocyte [id number] H, Urine RBC 0 SEEN, Urine WBC 10-25 SEEN, Ur Squamous Epith Cells 0 SEEN, Ur RenalEpithelial Cell 0-5 SEEN, Urine Bacteria 2+, Urine Mucus 0 SEEN 10/01/24 16:37: TSH 2.310 10/02/24 06:18: WBC 6.9, RBC 3.47 L, Hgb 10.2 L, Hct 31.4 L, MCV 90.5, MCH 29.4,MCHC 32.5, RDW Std Deviation 50.5 H, RDW Coeff of Kierra 15.2 H, Plt Count 296, MPV10.7, Immature Gran % (Auto) 0.100, Neut % (Auto) 73.6 H, Lymph % (Auto) 11.2 L,Stanislaus % (Auto) 10.2 H, Eos % (Auto) 4.2, Baso % (Auto) 0.7, Absolute Neuts (auto)5.1, Absolute Lymphs (auto) 0.77 L, Nucleated RBC % 0 Radiography Diagnostic Testing: Radiology Impression Chest X-Ray 10/01/24 10:56 IMPRESSION: Interstitial edema with blunting of both costophrenic angle suggesting associated pleural effusions. Findings suggest pulmonary vascular congestion/CHF though a diffuse inflammatory process could also cause similar findings. Follow-up recommended to ensure resolution Reading Location: [facility] Venous Doppler Study 10/01/24 10:56 Interpretation Summary Chronic deep vein thrombosis noted in the left common femoral vein. Deep veins of the right lower extremity are patent and compressible segmentally.There is no evidence of right lower extremity deep vein thrombosis. The bilateral great saphenous veins appear patent and compressible segmentally. Ordering Physician: Renzo Ward Referring Physician: Waqas Scott Performed By: Nola Sol RVT Physical Exam Narrative GENERAL: cooperative HEENT: Atraumatic; normocephalic EYES; Anicteric, Normal Conjunctiva NECK; supple, normal thyroid, RESPIRATORY: Diminished to auscultation CARDIOVASCULAR: Irregularly irregular GI: soft, normoactive bowel sounds, : No Renal angle tenderness; EXTREMITIES: Bilateral pedal edema with an area of erythema involving the left montenegro MUSCULOSKELETAL: no muscle wasting NEURO: Awake; no lateralizing signs. SKIN: As described above PSYCH; Flat affect Assessment & Plan Assessment/Plan (1) Atrial fibrillation [...] management 2D echo serial cardiac enzymes ordered ? 10/02/2024; patient 2D echo results pending. 2. Paroxysmal A-fib with RVR ? Patient [...] with apixaban 2.5 mg p.o. twice daily ? 10/02/2024; patient apixaban dose was adjusted from 2.5 mg twice daily to 5 mg twice daily 3. Acute cystitis ? Present on admission patient started on ceftriaxone urine culture sent ? 10/02/2024; patient remains on ceftriaxone urine cultures pending 4. Hypertension ? Blood pressure controlled, home [...] on anastrozole and has since remained in remission. With patient still complaining of left-sided pleuritic chest pain ordered CTA 8. GERD ? On PPI 9. Osteoporosis ?patient is on denosumab 10. DVT prophylaxis ? Patient started on apixaban Time spent in the patient's overall evaluation,decision-making process, review of diagnostic data, adjustment of management, discussion with other providers, nursing nursing and ancillary staff involved in patient's care documentation, 36minutes Charges/Coding Visit Charges Inpatient E&M: 08846 Subs Hosp L2 10/02/24 1009 Cosigner Signature (if applicable): CC: ~ Signed [facility]07-01-2025 History and physical note Author Dedrick Mckeon [facility] Note Date/Time October 01, 2024 1:24p m [facility] Medical Records Department [address] [place] [address] H&P Exam - Hospitalist 10/01/24 1245 MR#: [id number] Acct: [id number] Name: NESTOR MONTES DE OCA I Rep #:[id number] : 1935 89 From: Dedrick Mckeon MD PCP: Dr. Waqas Scott MD Status:ADM I N Location: [place] [address] HPI - General General Date of Admission: [...] tomonitored bed for further management [facility] Medical History Wears hearing aid [...] denosumab 60 mg/mL subcutaneous 60 mg subcut [id number] 09/20/22 Unknown History syringe (Prolia) premier protein [...] (From Allergy Intermediate Dizziness Verified 08/01/24 09:02 Sept) trimethoprim (From ) Allergy Intermediate Dizziness Verified [...] 80.9 H, Lymph % (Auto) 8.3 L, Stanislaus % (Auto) 8.5, Eos % (Auto) 1.1, [...] Sl. Cloudy, Urine pH 6.0, Ur Specific Forest 1.015, Urine Protein 30 H, Urine Glucose [...] Follow-up recommended to ensure resolution Reading Location: [id number] Assessment & Plan Assessment/Plan (1) Atrial fibrillation [...] Multi Select Codes Visit Charges Visit Charges: 71104 Init Hosp L3 Hospitalists' Procedures Procedures: 94573 Advncd Care Plan 30 Min 10/01/24 1324 <Electronically signed by Dedrick Mckeon MD> Cosigner Signature (if applicable): CC: Dr. Dedrick Mckeon MD; Dr. Waqas Scott MD~ Signed [facility] Work Phone: 1(152) 945-618907-01-2025 Evaluation note* Diagnosis Onset Date Resolution Status Admit Date Congestive heart failure acute October 01, 2024 1:06pm New onset atrial fibrillation acute October 01, 2024 1:06pm Acute cystitis resolved October 01, 2024 1:06pm Atrial fibrillation with RVR resolve d October 01, 2024 1:06pm Pleural effusion, bilateral resolved October 01, 2024 1:06pm Atrial fibrillation with RVR acute October 30, 2024 1:17pm Congestive heart failure acute October 30, 2024 1:17pm HTN (hypertension) chronic October 032024 1:17pm [facility] Work Phone: 1(286) 326-537507-01-2025 Discharge summary Author Renzo Ward [facility] Note Date/Time October 01, 2024 12:47 pm [facility] Medical Records Department [address] [place] [address] Emergency Department Summary 10/01/24 MR#: [id number] Acct: [id number] Name: NESTOR MONTES DE OCA I Rep #:[id number] : 1935 89 From: Renzo Ward MD [...] problems with her heart so she states. [facility] Medical History Wears hearing aid Wears glasses Ambulates with cane DVT (deep venous thrombosis) Non-smoker History of echocardiogram GERD (gastroesophageal reflux disease) Constipation Arthritis Back problem Breast cancer HTN (hypertension) Home Medications ?Medication ?Instructions ?Recorded ?Last Taken ?Type amlodipine 5 mg tablet 10 mg PO DAILY BP 12/03/20 1 02:00 History cholecalciferol (vitamin D3) 50 [...] denosumab 60 mg/mL subcutaneous 60 mg subcut [id number] 09/20/22 Unknown History syringe (Prolia) premier protein [...] Dizziness Verified 08/01/24 09:02 Septra) trimethoprim (From ) Allergy Intermediate Dizziness Verified [...] antibiotics. I discussed the patient with the seating and mobility technologist and reviewed the preliminary report. While [...] 80.9 H Lymph % (Auto) 8.3 L Stanislaus % (Auto) 8.5 Eos % (Auto) 1.1 [...] Sl. Cloudy Urine pH 6.0 Ur Specific Forest 1.015 Urine Protein 30 H Urine Glucose [...] Follow-up recommended to ensure resolution Reading Location: [id number] Management Discussion w/another healthcare provider: Hospitalist Discharge Plan Dx/Rx/DC Orders Clinical Impression: New onset atrial fibrillation, Congestive heart failure, Atrial fibrillation with RVR, Pleural effusion, bilateral Disposition Disposition: Acute Care Hospital [facility] What to do if you have Problems For any increased pain, shortness of breath, bleeding, nausea or vomiting, chestpain, or any unexpected problems, contact your Primary Care Provider. Call [facility] ([phone]) or report to the closest Emergency Room. Call 911 if necessary. 10/01/24 1247 <Electronically signed by Renzo Ward MD> Cosigner Signature (if applicable): CC: Dr. Waqas Scott MD ~ Signed [facility] Work Phone: 1(843) 337-791507-01-2025 History and physical note Author Dedrick Mckeon [facility] Note Date/Time October 01, 2024 1:24p m [facility] Medical Records Department [address] [place] [address] H&P Exam - Hospitalist 10/01/24 1245 MR#: [id number] Acct: [id number] Name: NESTOR MONTES DE OCA #:[id number] : 1935 89 From: Dedrick Mckeon MD PCP: Dr. Waqas Scott MD Status:ADM I N Location: [address] HPI - General General Date of Admission: [...] tomonitored bed for further management [facility] Medical History Wears hearing aid [...] denosumab 60 mg/mL subcutaneous 60 mg subcut [id number] 09/20/22 Unknown History syringe (Prolia) premier protein [...] Dizziness Verified 08/01/24 09:02 ) trimethoprim (From Decra) Allergy Intermediate Dizziness Verified 08/01/24 09:02 Penicillins [...] 80.9 H, Lymph % (Auto) 8.3 L, Stanislaus % (Auto) 8.5, Eos % (Auto) 1.1, [...] Sl. Cloudy, Urine pH 6.0, Ur Specific Forest 1.015, Urine Protein 30 H, Urine Glucose [...] Follow-up recommended to ensure resolution Reading Location: [facility] Assessment & Plan Assessment/Plan (1) Atrial fibrillation [...] Multi Select Codes Visit Charges Visit Charges: 02809 Init Hosp L3 Hospitalists' Procedures Procedures: 30942 Advncd Care Plan 30 Min 10/01/24 1324 <Electronically signed by Dedrick Mckeon MD> Cosigner Signature (if applicable): CC: Dr. Dedrick Mckeon MD; Dr. Waqas Scott MD~ Signed [facility] Work Phone: 1(229) 358-812707-01-2025 History and physical note [facility] Medical Records Department [address] [place] [address] H&P Exam - Hospitalist 10/01/24 1245 MR#: [id number] Acct: [id number] Name: NESTOR MONTES DE OCA I Rep #:[id number] : 1935 89 From: Dedrick Mckeon MD PCP: Dr. Waqas Scott MD Status:ADM I N Location: [place] [address] HPI - General General Date of Admission: 10/01/24 Date of Service: 10/01/24 Chief Complaint: Shortness of breath and bilateral lower extremity swelling HPI Narrative NESTOR NYARS, is a 89 F who presents with [...] tomonitored bed for further management [facility] Medical History Wears hearing aid [...] denosumab 60 mg/mL subcutaneous 60 mg subcut [id number] 09/20/22 Unknown History syringe (Prolia) premier protein [...] Dizziness Verified 08/01/24 09:02 Septra) trimethoprim (From ) Allergy Intermediate Dizziness Verified [...] 80.9 H, Lymph % (Auto) 8.3 L, Stanislaus % (Auto) 8.5, Eos % (Auto) 1.1, [...] Sl. Cloudy, Urine pH 6.0, Ur Specific Forest 1.015, Urine Protein 30 H, Urine Glucose (UA) Normal, Urine Ketones Negative, Urine Occult Blood 10 H, Urine Nitrite Positive H, Urine Bilirubin Negative, Urine Urobilinogen Normal, Ur Leukocyte [id number] H, Urine RBC 0 SEEN, Urine WBC [...] Follow-up recommended to ensure resolution Reading Location: [id number] Assessment & Plan Assessment/Plan (1) Atrial fibrillation [...] Multi Select Codes Visit Charges Visit Charges: 01447 Init Hosp Hospitalists' Procedures Procedures: 86160 Advncd Care Plan 30 Min 10/01/24 1324 Cosigner Signature (if applicable): CC: Dr. Dedrick Mckeon MD; Dr. Waqas Scott MD~ Signed [facility]07-01-2025 Discharge summary [facility] Medical Records Department [address] [place] [address] Emergency Department Summary 10/01/24 MR#: [id number] Acct: [id number] Name: NESTOR MONTES DE OCA I Rep #:[id number] : 1935 89 From: Renzo Ward MD [...] problems with her heart so she states. PFSH PFSH Medical History Wears hearing aid [...] denosumab 60 mg/mL subcutaneous 60 mg subcut [id number] 09/20/22 Unknown History syringe (Prolia) premier protein [...] antibiotics. I discussed the patient with the seating and mobility technologist and reviewed the preliminary report. 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 Cloudy Urine pH 6.0 Ur Specific Forest 1.015 Urine Protein 30 H Urine Glucose [...] Follow-up recommended to ensure resolution Reading Location: [facility] Management Discussion w/another healthcare provider: Hospitalist Discharge Plan Dx/Rx/DC Orders Clinical Impression: New onset atrial fibrillation, Congestive heart failure, Atrial fibrillation with RVR, Pleural effusion, bilateral Disposition Disposition: Acute Care Hospital [facility] What to do if you have Problems For any increased pain, shortness of breath, bleeding, nausea or vomiting, chestpain, or any unexpected problems, contact your Primary Care Provider. Call [facility] ([phone]) or report tothe closest Emergency Room. Call 911 if necessary. 10/01/24 1249 Cosigner Signature (if applicable): CC: Dr. Waqas Scott MD ~ Signed [facility]07-01-2025 Radiology Diagnostic study note [facility] Imaging Services [address] [place] [address] Chest 1 View (Portable) MR#: [id number] Acct: [id number] Name: NESTOR MONTES DE OCA I Rep #: [id number] : 1935 F 89 From: Salud Chiu MD PCP: Dr. Waqas Scott MD Status: REG E R Study:Chest 1 View (Portable) Date of Exam: 10/01/24 Exam# [id number] Ordering Dr: Renzo Ward MD PROCEDURE: CHEST [...] Follow-up recommended to ensure resolution Reading Location: [facility] CC: Dr. Renzo Ward MD; Dr. Waqas Scott MD ~ City Carrier Assistant: Signed [facility]05-01-2025 Evaluation note* Diagnosis Onset Date Resolution Status Admit Date Sebaceous cyst of left axilla acute August 01, 2024 8:42am Congestive heart failure acute October 01, 2024 1:06pm New onset atrial fibrillation acute October 01, 2024 1:06pm Acute cystitis resolved October 01, 2024 1:06pm Atrial fibrillation with RVR resolve d October 01, 2024 1:06pm Pleural effusion, bilateral resolved October 01, 2024 1:06pm Atrial fibrillation with RVR acute October 30, 2024 1:17pm Congestive heart failure acute October 30, 2024 1:17pm HTN (hypertension) chronic October 032024 1:17pm [facility] Work Phone: 1(978) 411-565504-21-2025 Evaluation note* Diagnosis Onset Date Resolution Status [...] effusion, bilateral acute October 01, 2024 1:06pm [facility] Work Phone: 1(365) 888-514604-21-2025 Evaluation note* Diagnosis Onset Date Resolution Status Admit Date Skin nodule acute July 22, 2 025 3:13pm Mass of left kidney chronic July 22, 2024 3:13pm Numbness and tingling in lef t hand resolved July 22, 2024 3:13pm 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 July 22, 2024 3:13pm Lymphedema inactive July 22 3:13pm Sebaceous cyst of left axilla acute August 01, 2024 8:42am Congestive heart failure acute October 01, 2024 1:06pm New onset atrial fibrillation acute October 01, 2024 1:06pm Acute cystitis resolved October 01, 2024 1:06pm Atrial fibrillation with RVR resolve d October 01, 2024 1:06pm Pleural effusion, bilateral resolved October 01, 2024 1:06pm [facility] Work Phone: 1(193) 772-474901-13-2025 Evaluation note* Diagnosis Onset Date Resolution Status Admit Date 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 [place] [address] / REHABILITATION SERVICES DISCHARGE SUMMARY MR#: [id number] Acct: [id number] Name: NESTOR MONTES DE OCA I Rep #: [id number] : 1935 88 From: Sherry Olivera OTR/Edgar, [place] Referring Dr.: Dr. Alonzo John MD Status: [...] please fell free to call me at [phone]. Thank you for the referral of this patient. Sincerely, Sherry Olivera, OTR/L, CHT <Electronically signed by Sherry Olivera OTR/Edgar, CHT> 02/10/23 1046 CC: Dr. Alonzo John MD; Dr. Waqas Scott MD ~ MK Signed [facility] Work Phone: evaluation noteNo assessment information available [facility] Work Phone: evaluation note* Diagnosis Onset Date Resolution Status Abnormal ultrasound of breast acute Thickening of skin of breast acute [facility] Work Phone: evaluation note* Diagnosis Onset Date Resolution Status Abnormal ultrasound of breast acute Thickening of skin of breast acute Axillary lymphadenopathy acu te Breast mass, left acute Thickening of skin of breast acute [facility] Work Phone: evaluation note* Diagnosis Onset Date Resolution Status Abnormal ultrasound of breast acute Thickening of skin of breast acute Axillary lymphadenopathy acu te Breast mass, left acute Thickening of skin of breast acute 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 [facility] Work Phone: evaluation note* Diagnosis Onset Date Resolution Status Axillary lymphadenopathy res olved Thickening of skin of breast resolved 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 Mass of left kidney acute 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 Axillary lymphadenopathy res olved S/P left mastectomy acute [facility] Work Phone: evaluation note* Diagnosis Onset Date Resolution Status Invasive [...] left breast acute S/P left mastectomy acute [facility] Work Phone: Evaluation note* Diagnosis Onset Date [...] breast chronic Mass of left kidney chronic [facility] Work Phone: Evaluation note* Diagnosis Onset Date Resolution Status Lymphedema acute Osteopenia after menopause a cute 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 left kidney chronic 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 [facility] Work Phone: Evaluation note* Diagnosis Onset Date Resolution Status 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 [facility] Work Phone: Evaluation note* Diagnosis Onset Date Resolution Status 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 Lymphedema acute 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 left kidney 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 c hronic [facility] Work Phone: Reason for referral (narrative)No reason for referral [facility]WA[facility] Work Phone: Summary Purpose Family History No Family History Records Found Relationship Condition Age at Onset Recorded Date/T [...] Unknown aunt Malignant neoplasm Unknown Advance Directives No Advanced Directives Records Found Advance Directive Response Recorded Date/ Time Living Will No March 05 4:05pm Power of Rewinder Operator No March 05, 2020 4:05pm Advance Directive Response Recorded Date/ Time Living Will No October 11, 2021 5:00pm Power of Rewinder Operator No October 11 5:00pm Advance Directive Response Recorded Date/ Time Living Will No January 04 11:52am Power of Rewinder Operator No January 04 11:52am Advance Directive Response Recorded Date/ Time Living Will No January 04 10:52am Power of Rewinder Operator No January 04 10:52am Advance Directive Response Recorded Date/ Time Living Will No January 04 11:52am Do you have a Healthcare Power of Rewinder Operator? No January 04, 2022 11:52am Advance Directive Response Recorded Date/ Time Living Will No January 04 11:52am Do you have a Healthcare Pow er of Rewinder Operator? No January 04, 2022 11:52am Do you have a Healthcare Pow er of Rewinder Operator? Yes October 01, 2024 10:42am Name of Medical Power of Rewinder Operator daughter cassius urbano October 01, 2024 10:42am Advance Directive Response Recorded Date/ Time Living Will No January 04 11:52am Do you have a Healthcare Pow er of Rewinder Operator? No January 04, 2022 11:52am Do you have a Healthcare Pow er of Rewinder Operator? Yes October 01, 2024 3:30pm Name of Medical Power of Rewinder Operator daughter cassius urbano October 01, 2024 10:42am Advance Directive Response Recorded Date/ Time Do you have a Healthcare Pow er of Rewinder Operator? Yes October 01, 2024 3:30pm Name of Medical Power of Rewinder Operator daughter cassius urbano October 01, 2024 10:42am [...] MASTECTOMY, AXILLARY NODE LT MASTECTOMY, AXILLARY NODE 10/ Left Mastectomy Axillary Node 10 Left Mastectomy Axillary Node NEW PATH 10 Left Mastectomy Axillary Node AGE RELATED OSTEOPOROSIS 01/04 Left Mastectomy Axillary Node Reason for Visit [...] Sebaceous cyst of left axilla August 01 025 8:42am Acute cystitis October 01, 2024 1:06p m Atrial fibrillation with RVR October 01 025 1:06pm Congestive heart failure October 01, 2024 1:06pm New onset atrial fibrillation October 01, 2024 1:06pm Pleural effusion, bilateral October 01 1:06pm Chief Complaint Admit Date 6MO LABS July 22, 2024 3:1 3pm Prolia July 22, 2024 3:1 5pm LUMP L ARMPIT August 01, 2024 8:42am AFIB W/ RVR, CHF October 01, 2024 1:06p m AFIB W/ RVR, CHF October 02, 2024 7:30a m AFIB W/ RVR, CHF October 03, 2024 10:25 am Chief Complaint Admit Date 6MO LABS July 22, 2024 3:1 3pm Prolia July 22, 2024 3:1 5pm LUMP L ARMPIT August 01, 2024 8:42am AFIB W/ RVR, CHF October 01, 2024 1:06p m AFIB W/ RVR, CHF October 02, 2024 7:30a m AFIB W/ RVR, CHF October 03, 2024 10:25 am S/P [facility] 10/03October 30, 2024 1:17 pm Reason for Visit Admit Date Skin nodule July 22, 2024 3:1 3pm Mass of left kidney July 22, 2024 3:1 3pm Numbness and tingling in left hand July 22, 2024 3:13pm Invasive ductal carcinoma of left breast July 22, 2024 3:13pm Lymphedema July 22, 2024 3:1 3pm Sebaceous cyst of left axilla August 01 2 025 8:42am Congestive heart failure October 01, 2024 1:06pm New onset atrial fibrillation October 01, 2024 1:06pm Acute cystitis October 01, 2024 1:06p m Atrial fibrillation with RVR October 01 025 1:06pm Pleural effusion, bilateral October 01 1:06pm Chief Complaint Admit Date LUMP L ARMPIT August 01, 2024 8:42am AFIB W/ RVR, CHF October 01, 2024 1:06p m AFIB W/ RVR, CHF October 02, 2024 7:30a m AFIB W/ RVR, CHF October 03, 2024 10:25 am S/P [facility] 10/03October 30, 2024 1:17 pm Reason for Visit Admit Date Sebaceous cyst of left axilla August 01 2 025 8:42am Congestive heart failure October 01, 2024 1:06pm New onset atrial fibrillation October 01, 2024 1:06pm Acute cystitis October 01, 2024 1:06p m Atrial fibrillation with RVR October 01 025 1:06pm Pleural effusion, bilateral October 01 1:06pm Atrial fibrillation with RVR October 30, 2024 1:17pm Congestive heart failure October 30, 2024 1:17pm HTN (hypertension) October 30, 2024 1:17 pm Chief Complaint Admit Date AFIB W/ RVR, CHF October 01, 2024 1:06p m AFIB W/ RVR, CHF October 02, 2024 7:30a m AFIB W/ RVR, CHF October 03, 2024 10:25 am S/P [facility] 10/03October 30, 2024 1:17 pm SCREENING November 28, 2024 12 :25pm Reason for Visit Admit Date Congestive heart failure October 01, 2024 1:06pm New onset atrial fibrillation October 01, 2024 1:06pm Acute cystitis October 01, 2024 1:06p m Atrial fibrillation with RVR October 01 025 1:06pm Pleural effusion, bilateral October 01 1:06pm Atrial fibrillation with RVR October 30, 2024 1:17pm Congestive heart failure October 30, 2024 1:17pm HTN (hypertension) October 30, 2024 1:17 pm Additional Source Comments INFORMATION SOURCE (unrecogn ized section and content) DATE CREATED AUTHOR 09/27/2017 [facility] DATE CREATED AUTHOR AUTHOR'S ORGANIZ ATION 01/14/2025 [facility] Source Comments (unrecognize d section and content) In the event this informatio n is protected by the Federal Confidentiality of Alcohol and Drug Abuse Patient Records regulations: The Federal rules restrict any use of the information to criminally investigate or prosecute any alcohol or drug abuse patient.[facility] the event this information is protected by the Federal Confidentiality of Alcohol and Drug Abuse Patient Records regulations: The Federal rules restrict any use of the information to criminally investigate or prosecute any alcohol or drug abuse patient.[facility] Goals (unrecognized section and content) Goals may [...] Provider Active Star t: October 01, 2024 Team Status: Active Member Role/Relationship Status Dates Dr. Waqas Scott MD Primary Care Provider Active Start: October 01, 2024 Dr. Bruce De Jesus MD Attending Provider Active S tart: October 01, 2024 Team Status: Inactive Member Role/Relationship Status Dates Dr. Waqas Scott MD Primary Care Provider Active Start: October 01, 2024 End: October 03, 2024 Renzo Ward MD Emergency Provider Active Star t: October 01, 2024 End: October 03, 2024 Dr. Dedrick Mckeon MD Admit Provider Active Star t: October 01, 2024 End: October 03, 2024 Dr. Dedrick Mckeon MD Attending Provider Active Start: October 01, 2024 End: October 03, 2024 Dr. Dedrick Mckeon MD Other Provider Active Star t: October 01, 2024 Team Status: Active Member Role/Relationship Status Dates Dr. Waqas Scott MD Primary Care Provider Active Start: October 02, 2024 Dr. Maame Damon MD Attending Provider Active Start: October 02, 2024 Team Status: Active Member Role/Relationship Status Dates Dr. Waqas Scott MD Primary Care Provider Active Start: October 02, 2024 Renzo Ward MD Emergency Provider Active Star t: October 02, 2024 Dr. Dedrick Mckeon MD Admit Provider Active Star t: October 02, 2024 Dr. Dedrick Mckeon MD Attending Provider Active Start: October 02, 2024 Dr. Dedrick Mckeon MD Other Provider Active Star t: October 02, 2024 Team Status: Active Member Role/Relationship Status Dates Dr. Waqas Scott MD Primary Care Provider Active Start: October 03, 2024 Renzo Ward MD Emergency Provider Active Star t: October 03, 2024 Dr. Dedrick Mckeon MD Admit Provider Active Star t: October 03, 2024 Dr. Dedrick Mckeon MD Attending Provider Active Start: October 03, 2024 Dr. Dedrick Mckeon MD Other Provider Active Star t: October 03, 2024 Team Status: Active Member Role/Relationship Status Dates Dr. Waqas Scott MD Primary Care Provider Active Start: October 01, 2024 Dr. Bruce De Jesus MD Attending Provider Active S tart: October 01, 2024 Renzo Ward MD Referring Provider Active Star t: October 01, 2024 Team Status: Inactive Member Role/Relationship Status Dates Dr. Waqas Scott MD Primary Care Provider Active Start: October 30, 2024 End: October 30, 2024 Dr. Waqas Scott MD Referring Provider Active Start: October 30, 2024 End: October 30, 2024 Dr. Luis Fernando Garza MD Attending Provider Active S tart: October 30, 2024 End: October 30, 2024 Team Status: Inactive Member Role/Relationship Status [...] Care Provider Active Start: October 01, 2024 Dr. Bruce De Jesus MD Attending Provider Active S tart: October 01, 2024 Renzo Ward MD Referring Provider Active Star t: October 01, 2024 Team Status: Inactive Member Role/Relationship Status Dates Dr. Waqas Scott MD Primary Care Provider Active Start: October 01, 2024 End: October 03, 2024 Renzo Ward MD Emergency Provider Active Star t: October 01, 2024 End: October 03, 2024 Dr. Dedrick Mckeon MD Admit Provider Active Star t: October 01, 2024 End: October 03, 2024 Dr. Dedrick Mckeon MD Attending Provider Active Start: October 01, 2024 End: October 03, 2024 Dr. Dedrick Mckeon MD Other Provider Active Star t: October 01, 2024 Team Status: Active Member Role/Relationship Status Dates Dr. Waqas Scott MD Primary Care Provider Active Start: October 02, 2024 Dr. Maame Damon MD Attending Provider Active Start: October 02, 2024 Team Status: Active Member Role/Relationship Status Dates Dr. Waqas Scott MD Primary Care Provider Active Start: October 02, 2024 Renzo Ward MD Emergency Provider Active Star t: October 02, 2024 Dr. Dedrick Mckeon MD Admit Provider Active Star t: October 02, 2024 Dr. Dedrick Mckeon MD Attending Provider Active Start: October 02, 2024 Dr. Dedrick Mckeon MD Other Provider Active Star t: October 02, 2024 Team Status: Active Member Role/Relationship Status Dates Dr. Waqas Scott MD Primary Care Provider Active Start: October 03, 2024 Renzo Ward MD Emergency Provider Active Star t: October 03, 2024 Dr. Dedrick Mckeon MD Admit Provider Active Star t: October 03, 2024 Dr. Dedrick Mckeon MD Attending Provider Active Start: October 03, 2024 Dr. Dedrick Mckeon MD Other Provider Active Star t: October 03, 2024 Team Status: Inactive Member Role/Relationship Status Dates Dr. Waqas Scott MD Primary Care Provider Active Start: October 30, 2024 End: October 30, 2024 Dr. Waqas Scott MD Referring Provider Active Start: October 30, 2024 End: October 30, 2024 Dr. Luis Fernando Garza MD Attending Provider Active S tart: October 30, 2024 End: October 30, 2024 Team Status: Active Member Role/Relationship Status Dates Dr. Waqas Scott MD Primary Care Provider Active Start: October 01, 2024 Dr. Bruce De Jesus MD Attending Provider Active S tart: October 01, 2024 Renzo Ward MD Referring Provider Active Star t: October 01, 2024 Team Status: Inactive Member Role/Relationship Status Dates Dr. Waqas Scott MD Primary Care Provider Active Start: October 01, 2024 End: October 03, 2024 Renzo Ward MD Emergency Provider Active Star t: October 01, 2024 End: October 03, 2024 Dr. Dedrick Mckeon MD Admit Provider Active Star t: October 01, 2024 End: October 03, 2024 Dr. Dedrick Mckeon MD Attending Provider Active Start: October 01, 2024 End: October 03, 2024 Dr. Dedrick Mckeon MD Other Provider Active Star t: October 01, 2024 Team Status: Active Member Role/Relationship Status Dates Dr. Waqas Scott MD Primary Care Provider Active Start: October 02, 2024 Dr. Maame Damon MD Attending Provider Active Start: October 02, 2024 Team Status: Active Member Role/Relationship Status Dates Dr. Waqas Scott MD Primary Care Provider Active Start: October 02, 2024 Renzo Ward MD Emergency Provider Active Star t: October 02, 2024 Dr. Dedrick Mckeon MD Admit Provider Active Star t: October 02, 2024 Dr. Dedrick Mckeon MD Attending Provider Active Start: October 02, 2024 Dr. Dedrick Mckeon MD Other Provider Active Star t: October 02, 2024 Team Status: Active Member Role/Relationship Status Dates Dr. Waqas Scott MD Primary Care Provider Active Start: October 03, 2024 Renzo Ward MD Emergency Provider Active Star t: October 03, 2024 Dr. Dedrick Mckeon MD Admit Provider Active Star t: October 03, 2024 Dr. Dedrick Mckeon MD Attending Provider Active Start: October 03, 2024 Dr. Dedrick Mckeon MD Other Provider Active Star t: October 03, 2024 Team Status: Inactive Member Role/Relationship Status Dates Dr. Waqas Scott MD Primary Care Provider Active Start: October 30, 2024 End: October 30, 2024 Dr. Waqas Scott MD Referring Provider Active Start: October 30, 2024 End: October 30, 2024 Dr. Luis Fernando Garza MD Attending Provider Active S tart: October 30, 2024 End: October 30, 2024 Team Status: Inactive Member Role/Relationship Status Dates Dr. Waqas Scott MD Primary Care Provider Active Start: November 28, 2024 End: November 28, 2024 Dr. Robinson Yepez DO Attending Provider Active Start: November 28, 2024 End: November 28, 2024 Dr. Robinson Yepez DO Referring Provider Active Start: November 28, 2024 End: November 28, 2024 FOR RECORDS PERTAINING TO PATIENTS WHO [...] BE BASED ON THE PRIMARY CLINICAL RECORDS. [employer] [facility]. provides no warranty or guarantee of the accuracy or completeness of information in this document.
== END | disposition home or self-care (01) ==
LOC: OPBD 07:43
PROVIDERS: PCP Family Medicine; Referring Provider Internal Medicine Medical Oncology; Visit Provider Internal Medicine Medical Oncology
DX: Z13.820 Encounter for screening for osteoporosis (principal); Z78.0 Asymptomatic menopausal state; Z85.3 Personal history of malignant neoplasm of breast
CPT/HCPCS: 77080

== ENCOUNTER → 2025-01-21 | Outpatient (CLI) | payer MEDICARE, SELFPAY ==
--- NOTE | 2025-01-21 08:00 | NM_ITS ---
PROCEDURE: BONE SCAN WHOLE BODY 01/21/2025 REASON FOR EXAM: HX OF left BREAST CA/BACK PAIN TECHNIQUE: Procedure Code: NMBO Modality: NM Procedure: BONE SCAN WHOLE BODY Whole-body bone scan with anterior and posterior views. Imaging at 3.5 hours. RADIOPHARMACEUTICAL: 26 mCi Technetium-99m MDP IV COMPARISON: Nuclear medicine bone scan of 10/21/2021 and PET-CT of 02/23/2022. FINDINGS: A mild degree of gentle thoracolumbar dextroscoliosis is seen. Degenerative changes are seen throughout the lower cervical, thoracic, and lumbar spine. Left ankle and midfoot degenerative changes, bilateral knee degenerative changes, and asymmetric right acromioclavicular joint degenerative changes are also noted. No findings are seen to suggest the presence of osseous metastatic disease. NM/Bone Scan Whole Body IMPRESSION: 1. Degenerative changes as described. 2. No scintigraphic evidence of osseous metastatic disease. Reading Location: [id number]
== END | disposition home or self-care (01) ==
LOC: NM 07:56
PROVIDERS: PCP Family Medicine; Referring Provider Internal Medicine Medical Oncology; Visit Provider Internal Medicine Medical Oncology
DX: M54.6 Pain in thoracic spine (principal); Z85.3 Personal history of malignant neoplasm of breast
CPT/HCPCS: 78306; A9503

== ENCOUNTER → 2025-03-03 | Outpatient (CLI) | payer MEDICARE, SELFPAY ==
[2025-03-03 18:08] LABS: Pro- Brain NATRIURETIC PEPTIDE 13291 pg/mL (<=1800)
[2025-03-03 18:55] LABS: Anion Gap 12 (5-15); BUN 60 mg/dL (4-19); BUN/Creat Ratio 28.7 RATIO (10-20); Calcium,Total 9.2 mg/dL (7.6-11.0); Carbon Dioxide 20.8 mmol/L (21.0-32.0); Chloride 104 mmol/L (98-108); Glucose 87 mg/dL (70-99); Potassium 6.4 mmol/L (3.3-5.1)
--- OUTSIDE RECORDS SUMMARY | 2025-03-03 20:02 | XMS RPT_ITS | CCD ---
Author Organization [facility] Care Team Providers Care Rotor Balancer Name Role Phone Unavailable Primary Care Provider Unavailjanay e Dr. Waqas Palma Primary Care Provider Dr. Waqas Palma Referring Provider Dr. Zahida Arroyo Attending Provider Lucy Martinez Attending Provider Unavailable Dr. Alonzo John Attending Provider Dr. Waqas Skelton Attending Provider Dr. Waqas Palma Primary Care Provider Dr. Waqas Palma Referring Provider Dr. Zahida Arroyo Attending Provider Dr. Zahida Arroyo Referring Provider Dr. Zahida Arroyo Other Provider Cruz, Dr. Teague Admit Provider Dr. Waqas Palma Primary Care Provider Dr. Waqas Palma Referring Provider Dr. Zahida Arroyo Attending Provider Dr. Waqas Palma Primary Care Provider Dr. Robinson Yepez Attending Provider Dr. Robinson Yepez Referring Provider Dr. Waqas Palma Referring Provider Dr. Alonzo John Attending Provider Dr. Waqas Palma Primary Care Provider Dr. Waqas Palma Referring Provider Prah, Dr. Rosado Attending Provider Marleni, Dr. Bowers Attending Provider Louie, Dr. Alan Primary Care Provider Louie, Dr. Alan Referring Provider Marleni, Dr. Bowers Attending Provider Louie, Dr. Alan Primary Care Provider Louie, Dr. Alan Referring Provider Marleni, Dr. Bowers Attending Provider [facility], Dr. Rosado Attending Provider Louie, Dr. Alan Primary Care Provider Louie, Dr. Alan Referring Provider [place], Dr. Bowers Attending Provider Louie KINNEY, Dr. [...] Provider Louie KINNEY, Dr. Alan Referring Provider [phone] Louie KINNEY, Dr. Alan Primary Care Provider Louie KINNEY, Dr. Alan Referring Provider [place] DO, Dr. Bowers Attending Provider [place] DO, Dr. Bowers Referring Provider Louie KINNEY, Dr. Alan Primary Care Physician Liza KINNEY, Dr. Agarwal Attending Physician Sylvia KINNEY, Renzo Emergency Department Physician Mike KINNEY, Dr. Tse Admitting Physician Unavail brandie Mckeon MD, Dr. Tse Attending Physician Unavail brandie Damon MD, Dr. Isabel Attending Physician Mike KINNEY, Dr. Tse Nurse Practitioner Unavaila fritz Garza MD, Dr. Gould Attending Physician [place] DO, Dr. Bowers Attending Physician Alvaro KINNEY, Dr. Rosado Attending Physician Alvaro KINNEY, Dr. Rosado Referring Provider Robinson Yepez Attending Unavailable Palma, Waqas Primary Care Unavailable Palma, Waqas Primary Care Unavailable Palma, Waqas Referring Unavailable Prah, Alonzo Attending Unavailable Pamla, Waqas Referring Unavailable KaylaLuis Fernando Attending Unavailable Palma, Waqas Primary Care Unavailable Palma, Waqas Referring Unavailable Prah, Alonzo Attending Unavailable Palma, Waqas Primary Care Unavailable Palma, Waqas Referring Unavailable Robotham, Zahida Attending Unavailable Palma, Waqas Primary Care Unavailable KittoeDedrick Admitting Unavailable Kittoe, Dedrick Attending Unavailable KittoDedrick rocha Consulting Unavailable Palma, Waqas Primary Care Unavailable Marleni, Robinson Attending Unavailable Palma, Waqas Primary Care Unavailable Prah, Alonzo Referring Unavailable KittoeDedrick Admitting Unavailable KittoeDedrick Attending Unavailable Palma, Waqas Primary Care Unavailable Marleni, Robinson Referring Unavailable Marleni, Robinson Attending Unavailable Palma, Waqas Primary Care Unavailable Palma, Waqas Referring Unavailable Palma, Waqas Attending Unavailable Palma, Waqas Primary Care Unavailable Palma, Waqas Primary Care Unavailable Prah, Alonzo Attending Unavailable Alonzo John Referring Unavailable Waqas Palma Primary Care Unavailable Alonzo John Attending Unavailable Alonzo John Referring Unavailable Maame Damon Attending Unavailable Waqas Palma Primary Care Unavailable Renzo Ward Referring Unavailable Bruce De Jesus Attending Unavailable Waqas Palma Primary Care Unavailable Waqas Palma Primary Care Unavailable Waqas Palma Referring Unavailable Alonzo John Attending Unavailable Allergies Allergy Classification Reported Allergen(s) Allergy Type Date of Onset Reaction(s) Facility (20 sources) Penicillins; Translations: [Penicillins] Drug Intolerance 03-13-20 12 Swelling [facility] (20 sources) Erythromycin Drug Allergy 03-18-20 20 Nausea [facility] (20 sources) Sulfamethoxazole Drug Allergy 08-28-19 [facility] (20 sources) Trimethoprim Drug Allergy 08-28-19 [facility] (1 source) Erythromycin Drug Allergy 01-31-20 [facility] Repository (1 source) Sulfamethoxazole Drug Allergy 01-31-20 [facility] Repository (1 source) Trimethoprim Drug Allergy 01-31-20 [facility] Repository Medications Current Medications Medication Drug Class(es) Dates Sig (Normalized) Sig (Original) apixaban 5 mg oral tablet (9 sources) Factor Xa Inhibitor Start: 10-03-2024 End: 10-30-2024 take 1 tablet by mouth twice daily cholecalciferol 0.05 mg oral capsule (20 sources) Vitamin D Start: 03-05-2020 Start: 03-05-2020 take 2000 [IU] by [facility] once daily Cholecalciferol (Vitamin D3) Active [...] 1:00am Cranberry Extract-Vitamin C 1 EACH capsule (7 sources) Start: 03-05-2020 Start: 03-05-2020 Cranberry Extr act-Vitamin C 1 EACH capsule Active 2 NMA PO DAILY March 05, 2020 1:00am URINARY HEALTH Start: 03-05-2020 Cranberry Extr act-Vitamin C 1 EACH capsule Active 2 NMA PO DAILY March 05, 2020 1:00am diphenhydrAMINE hydrochloride 25 mg oral tablet (6 sources) Histamine-1 Receptor Antagonist Start: 07-22-2024 take 1 tablet by mouth at bedtime as needed furosemide 40 mg oral tablet (5 sources) Loop Diuretic Start: 10-03-2024 take 1 tablet by mouth once daily metoprolol tartrate 50 mg oral tablet (13 sources) beta-Adrenergic Danya Start: 10-30-2024 take 1 tablet by mouth twice daily Start: 10-08-2024 End: 10-30-2024 take 1 tablet by mouth twice daily Metoprolol Tartrate 25 mg tablet Discontinued 25 mg PO TWICE A DAY 60 11 October 08, 2024 3:23pm October 30, 2024 1:28pm Start: 10-03-2024 End: 10-08-2024 Metoprolol Tartrate 25 mg Ta blet Discontinued 12.5 mg PO TWICE A DAY 30 30 0 October 03, 2024 12:00am October 08, 2024 3:23pm Aoxolryf-Wyu-Pbnj-Fa-Vit K-L ut (Centrum Silver Women) 8 mg iron-400 mcg-50 mcg tablet (4 sources) Start: 10-30-2024 take 1 tablet by lars th once daily Start: 10-30-2024 take 1 tablet by lars th once daily Hppnxkbv-Zxa-Iwke-Fa-Vit K-Lut (Centrum Silver Women) 8 mg iron-400 mcg-50 mcg tablet Active 1 {tbl} PO daily October 30, 2024 12:00am omeprazole 20 mg delayed release oral capsule (20 sources) Proton Pump Inhibitor Start: 10-01-2024 take 1 capsule by mouth at bedtime Start: 03-05-2020 End: 10-01-2024 take 1 tablet by mouth once daily Omeprazole 20 MG tablet,disintegrat, delay rel Discontinued 20 mg PO DAILY March 05, 2020 1:00am October 01, 2024 12:59pm GERD 24 hr oxybutynin chloride 5 mg extended release oral tablet (20 sources) Cholinergic Muscarinic Antagonist Start: 10-01-2024 take 1 tablet by mouth once daily Start: 03-05-2020 End: 10-01-2024 take 1 tablet by mouth once daily Oxybutynin Chloride 5 MG tablet Discontinued 5 mg PO DAILY March 05, 2020 1:00am October 01, 2024 12:59pm BLADDER microencapsulated potassium chloride 20 meq extended release oral tablet (7 sources) Start: 10-03-2024 End: 11-26-2024 take 1 tablet by mouth once daily Completed/Discontinued Medications Medication Drug Class(es) Dates Sig [...] mg tablet Discontinued 1 mg PO DAILY August 25, 2023 11:25am July 22, 2024 4:50pm ascorbic acid 500 mg chewable tablet (1 source) Vitamin C Start: 07-22-2024 End: 10-30-2024 Ascorbic Acid-Ascorbate Sodium 500 mg tablet,chewable Discontinued 1 {tbl} PO DAILY July 22, 2024 12:00am October 30, 2024 1:28pm Ascorbic Acid-Ascorbate Sodium 500 mg tablet,chewable (5 [...] 2020 1:00am July 22, 2024 4:12pm HEART [employer] On Hold: Resume on 01/08/22. 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%, multifocal disease [...] cancer inva sive ductal type, grade 2/3, ER/NH positive, Her2 negative, 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%, multifocal disease [...] fibrillation] Onset: 10-08-2024 10-01-2024 Chronic Cardiac dysrhythmias (5 sources) Cardiac dysrhythmias Congestive heart failure; nonhypertensive (16 sources) Congestive heart failure; Translations: [Heart failure, unspecified] Onset: 10-08-2024 10-01-2024 Chronic Disorders of lipid metabolism (1 source) Hyperlipidemia, unspecified; Translations: [Hyperlipidemia, unspecified] Onset: 01-13-2025 Chronic Esophageal disorders (4 sources) Gastroesophageal reflux disease; Translations: [Gastro-esophageal reflux disease without esophagitis] 10-17-2024 Chronic Essential hypertension (7 sources) Hypertensive disorder; Translations: [Essential (primary) hypertension] 10-17-2024 Chronic Comment on above: CONTROLLED WITH MEDS Fluid and electrolyte disorders (7 sources) Hyponatremia; Translations: [Hypo-osmolality and hyponatremia] 07-31-2023 Episodic Fracture of neck of femur (hip) (20 sources) Closed fracture of femur, subcapital; Translations: [Unspecified intracapsular fracture of right femur, initial encounter for closed fracture] 03-05-2020 Episodic Genitourinary symptoms and ill-defined conditions (8 sources) Scalding pain on urination ; Translations: [Dysuria] Onset: 01-13-2025 01-29-2024 Episodic Comment on above: Has taken [...] signs and symptoms in breast] Episodic Osteoarthritis (4 sources) Arthritis; Translations: [Unspecified osteoarthritis, unspecified site] 10-17-2024 Chronic Osteoporosis (1 source) Age-related osteoporosis without current pathological fracture; Translations: [Age-related osteoporosis without current pathological fracture] Onset: 01-30-2025 Chronic Other bone disease and musculoskeletal deformities (13 sources) Postmenopausal osteopenia; Translations: [Other specified disorders [...] Episodic Other diseases of kidney and ureters (19 sources) Renal mass; Translations: [Other specified disorders [...] Chronic Other diseases of veins and lymphatics (17 sources) Lymphedema; Translations: [Lymphedema, not elsewhere classified] 03-07-2022 Chronic Comment on above: L arm improving. Due to L breast and axillary surgery, Other diseases of veins and lymphatics (6 sources) Lymphedema, not elsewhere classified; Translations: [Other lymphedema] Onset: 01-30-2025 05-05-2022 Chronic Other nervous system disorders (4 sources) Carpal tunnel syndrome of left wrist; Translations: [Carpal tunnel syndrome, left upper limb] 10-17-2024 Chronic Comment on above: per pt following kavita Arroyo currently r/t Other nervous system disorders (9 sources) Paresthesia of hand ; Translations: [Anesthesia of skin] 07-22-2024 Episodic Other screening for suspected conditions (not mental disorders or infectious disease) (20 sources) Ultrasonography of breast abnormal; Translations: [Other abnormal and inconclusive findings on diagnostic imaging of breast] Onset: 12-04-2024 Episodic Comment on above: Given a BI-RADS 4 bu t also recommended MRI Other skin disorders (12 sources) Skin nodule; Translations: [Localized swelling, mass and lump, unspecified] Episodic Comment on above: Soft cutaneous nodul e in L armpit. Other skin disorders (10 sources) Sebaceous cyst of skin; Translations: [Sebaceous cyst] 08-02-2024 Episodic Pleurisy; pneumothorax; pulmonary collapse (16 sources) Bilateral pleural effusion; Translations: [Pleural effusion, not elsewhere classified] 10-01-2024 Episodic Residual codes; unclassified (15 sources) History of left mastectomy; Translations: [Acquired absence of left breast and nipple] 01-04-2022 Episodic Comment on above: with Left ALND 2021 Residual codes; unclassified (5 sources) Acquired absence of left breast and nipple; Translations: [Acquired absence of breast and nipple] Episodic Spondylosis; intervertebral disc disorders; other back problems (3 sources) Backache; Translations: [Dorsalgia, unspecified] Onset: 01-30-2025 01-13-2025 Episodic Comment on above: Mid back/ lower thor acic area. Unclassified (6 sources) R22.9 - Localized swelling, mass and lump, unspecified Urinary tract infections (5 sources) Urinary tract infections Past or Other Problems Problem Classification Problem Date Documented Da te Episodic/Chronic Other nervous system disorders (1 source) Anesthesia of skin; Translations: [Anesthesia of skin] Onset: 07-22-2024 Episodic Other nervous system disorders (1 source) Paresthesia of skin; Translations: [Paresthesia of skin] Onset: 07-22-2024 Episodic Other skin disorders (1 source) Localized swelling, mass and lump, unspecified; Translations: [Localized swelling, mass and lump, unspecified] Onset: 07-22-2024 Episodic Urinary tract infections (14 sources) Acute cystitis; Translations: [Acute cystitis without hematuria] Onset: 07-18-2024 10-01-2024 Episodic Results Test Name Value Interpretation Reference Range Facility Oncology Visit Reporton 01-03 Oncology Visit Report [facility] [address] [place] [address] OFFICE VISIT Date of Service: 01/30/25 1133 MR#: [id number] Acct: [id number] Name: NESTOR MONTES DE OCA I Rep #: [id number] : 1935 From: Alonzo John MD Age/Sex: 89/F Location: [facility] Status: Signed HPI Subjective Date of Service 01/30/25 Chief Complaint F/u for L breast cancer. History of Present Illness 89y.o.woman found a lump in her left breast/armpit. [...] decided to stop. Comes for follow up. Had back pain, taking Tylenol with no improvement, had bone scan and bone density done.. PFS Medical History Pleural effusion Atrial fibrillation with [...] safe at home: Yes Intake Vital Signs 01/13/25 15:43 01/30/25 11:34 Height 4 ft 10 in 4 ft 10 in BP 113/78 Blood Pressure Location Rt brachial Position Sitting Respiration 18 Pulse 120 H Pulse Source Monitor Temp 97.7 F L Temperature Source Temporal Artery Pulse Oximetry (%) 100 Oxygen Delivery Method room air Intake Accompanied by: Daughter Is patient in pain?: No Allergies sulfamethoxazole (From Septra) Allergy (Intermediate, Verified 01/30/25 11:41) Dizziness trimethoprim (From Septra) Allergy (Intermediate, Verified 01/30/25 11:41) Dizziness Penicillins (PCN) Allergy (Verified 01/30/25 11:41) Swelling erythromycin base Adverse Reaction (Verified 01/30/25 11:41) Nausea Medications ???Medication ???Instructions ???Recorded ???Confirmed ???Type cholecalciferol (vitamin D3) 50 2,000 unit PO DAILY SUPPLEMENT 06/2001/30/25 History mcg (2,000 unit) capsule cranberry extract-vitamin C 250 2 ea PO DAILY URINARY HEALTH 03/0501/30/25 History mg-60 mg capsule diphenhydramine HCl 25 mg tablet 25 mg PO QHS PRN allergy symptoms 07/22/24 01/30/25 History (Benadryl Allergy) omeprazole 20 mg capsule,delayed 20 mg PO QHS 10/01/24 01/30/25 His tory release oxybutynin chloride 5 mg 5 mg PO DAILY 10/01/24 01/30/25 Hi story tablet,extended release 24 hr apixaban 5 mg tablet (Eliquis) 5 mg PO BID #60 tabs 10/30/2401/03 Rx xylezkdb-mjgo-tzqn 8 mg-folic 400 1 tab PO QDAY 10/30/24 01/30/25 H istory mcg-K 50 mcg-lutein 300 mcg tablet (Centrum Silver Women) potassium chloride 20 mEq 20 meq PO DAILY #90 tabs 11/26/24 01/30/25 Rx tablet,extended release(part/cryst) furosemide 40 mg tablet (Lasix) 20 mg PO DAILY 01/30/25 History metoprolol tartrate 50 mg tablet 50 mg PO BID 01/30/25 01/30/25 His tory spironolactone 25 mg tablet 25 mg PO QDAY 01/30/25 01/30/25 Hi story tamoxifen 20 mg tablet 20 mg PO QDAY 90 (more content not included)... Normal [facility] Bone Scan Whole Bodyon 01-21 Bone Scan Whole Body [facility] Imaging [facility] [address] [place], [place] [id number] Bone Scan Whole Body MR#: [id number] Acct: [id number] Name: NESTOR MONTES DE OCA I Rep #: [id number] : 1935 F 89 From: Dedrick Noriega PCP: Dr. Waqas Palma MD Status: REG CLI Study: Bone Scan Whole Body Date of Exam: 01/21/25 Exam# [id number] Ordering Dr: Alonzo John MD PROCEDURE: BONE SCAN WHOLE BODY 01/21/2025 REASON FOR EXAM: HX OF left BREAST CA/BACK PAIN TECHNIQUE: Procedure Code: NMBO Modality: NM Procedure: BONE SCAN WHOLE BODY Whole-body bone scan with anterior and posterior views. Imaging at 3.5 hours. RADIOPHARMACEUTICAL: 26 mCi Technetium-99m MDP IV COMPARISON: Nuclear medicine bone scan of 10/21/2021 and PET-CT of 02/23/2022. FINDINGS: A mild degree of gentle thoracolumbar dextroscoliosis is seen. Degenerative changes are seen throughout the lower cervical, thoracic, and lumbar spine. Left ankle and midfoot degenerative changes, bilateral knee degenerative changes, and asymmetric right acromioclavicular joint degenerative changes are also noted. No findings are seen to suggest the presence of osseous metastatic disease. NM/Bone Scan Whole Body IMPRESSION: 1. Degenerative changes as described. 2. No scintigraphic evidence of osseous metastatic disease. Reading Location: [address] CC: Dr. Alonzo John MD; Dr. Waqas Palma MD Reservation Agent: Signed Normal [facility] Dexa Bone Density Studyon Dexa Bone Density Study [facility] Imaging Services [address] [place] [id number] Dexa Bone Density Study MR#: [id number] Acct: [id number] Name: NESTOR MONTES DE OCA I Rep #: [id number] : 1935 F 89 From: Chente sanabria MD PCP: Dr. Waqas Palma MD Status: REG CLI Study: Dexa Bone Density Study Date of Exam: 01/16/25 Exam# [id number] Ordering Dr: Alonzo John MD PROCEDURE: DEXA BONE DENSITY STUDY 01/16/2025 REASON FOR EXAM: HX OF BREAST CA F, age 89 y/o . Postmenopausal. TECHNIQUE: Procedure Code: BDDBD Modality: DX Procedure: DEXA BONE DENSITY STUDY COMPARISON: January 27, 2022. FINDINGS: BMD and T-SCORES Lumbar spine: 1.240 g/cm2, T-score 1.3 Levels: L1 through L4 Change from prior: Loss of 3.1%. Left femoral neck: 0.506 g/cm2, T-score -3.1 Femoral neck comparison data not recommended for monitoring change. Left total hip: 0.646 g/cm2, T-score -2.4 Change from prior: Loss of 20%. Right femoral neck: 0.691 g/cm2, T-score -1.4 Femoral neck comparison data not recommended for monitoring change. Right total hip: 0.668 g/cm2, T-score -2.2 Change from prior: Loss of 17.4%. The World Health Organization has defined the following categories based on bone density: Normal bone density: T-score equal to or greater than -1.0 Osteopenia: T-score between -1.0 and -2.5 Osteoporosis: T-score equal to or less than -2.5 FRAX (or Comparable) Fracture Risk Assessment: 10 Year Probability of Fracture: Major Osteoporotic Fracture: 24% Hip Fracture: 8.6% (Note: FRAX is not to be reported in setting of normal range bone density, osteoporosis on DEXA, known history of osteoporosis, prior osteoporotic hip or vertebral fracture, or for any patient undergoing pharmacological treatment for bone loss.) The National Osteoporosis Foundation (NOF) recommends pharmacological treatment for patients with a FRAX 10-year risk of 3% or higher for a hip fracture, or 20% or higher for a major osteoporotic fracture, to prevent osteoporosis and reduce fracture risk. The patient does meet the pharmacological treatment recommendations for prevention of osteoporosis. BD/Dexa Bone Density Study IMPRESSION: OSTEOPOROSIS. Recommend follow-up as clinically warranted. Reading Location: [facility] CC: Dr. Alonzo John MD; Dr. Waqas Palma MD Reservation Agent: Signed Normal [facility] CA 15-3on 01-15-2025 CA 15-3 52.3 U/mL Abnormal 0.0-25.0 [facility] Comment on above: Result Comment: [employer] Electrochemiluminescence Immunoassay (ECLIA) Values obtained with different assay methods or kits cannot be used interchangeably. Results cannot be interpreted as absolute evidence of the presence or absence of malignant disease. Performed at: [facility] - [facility] [id number] [employer] Coordinator: Edy Lovett PhD, Phone: [phone] Performed By: #### L 100.0100, L500.2500 #### [facility] [address] [place], [place], [address] CA 27.29on 01-15-2025 CA 27.29 67.6 U/mL Abnormal 0.0-38.6 [facility] Comment on above: Result Comment: [employer] Immunochemiluminometric Methodology (ICMA) Values obtained with different assay methods or kits cannot be used interchangeably. Results cannot be interpreted as absolute evidence of the presence or absence of malignant disease. Performed By: #### L 100.0100, L500.2500 #### [facility] [address] [facility] [address] [place], [place], [id number] Absolute lymphocyte countOrd ered By: Alonzo John on 01-13-2025 Lymphocytes Auto (Unsp spec) [#/Vol] 0.97 10*3/uL 0.83-4.51 [facility] Absolute neutrophil countOrd ered By: Alonzo John on 01-13-2025 Neutrophils (Bld) [#/Vol] 5.1 10*3/uL 2.0-7.7 [facility] Anion gap in Serum or Plasma Ordered By: Alonzo John on 01-13-2025 Anion gap [Moles/Vol] 13 mmol/L 5-15 [facility] Automated lymphocyte count a s percentage of total leukocytesOrdered By: Alonzo John on 01-13-2025 Lymphocytes/100 WBC Auto (Unsp spec) 13.9 % Low 19-41 [facility] BUN/creatinine ratioOrdered By: Alonzo John on 01-13-2025 Urea nitrogen/Creatinine [Mass ratio] 24.0 mg/mg High 10-20 [facility] Basophil percentageOrdered B y: Alonzo John on 01-13-2025 Basophils/100 WBC (Bld) 0.6 % 0-1 [facility] Bilirubin, totalOrdered By: Alonzo John on 01-13-2025 Bilirubin [Mass/Vol] 0.56 mg/dL 0.00-1.30 [facility] CA 15-3Ordered By: Alonzo garcia on 01-13-2025 CA 15-3 52.3 U/mL High 0.0-25.0 [facility] Comment on above: [employer] El ectrochemiluminescence Immunoassay(ECLIA)Values obtained with different assay methods or kits cannotbe used interchangeably. Results cannot be interpreted asabsolute evidence of the presence or absence of malignantdisease.Performed at: [facility] [id number] Director: Edy Lovett PhD, Phone: [phone] CA 27.29Ordered By: Alonzo pace on 01-13-2025 CA 27.29 67.6 U/mL High 0.0-38.6 [facility] Comment on above: [employer] Immu nochemiluminometric Methodology (ICMA)Values obtained with different assay methods or kits cannotbe used interchangeably. Results cannot be interpreted asabsolute evidence of the presence or absence of malignantdisease. CBC W/Diff, Automatedon 01-01 Absolute Lymph 0.97 X10 3/uL Normal 0.83-4.51 [facility] Comment on above: Performed By: #### M , #### [facility] [address] [facility] [place], [address] Absolute Neut 5.1 X10 3/uL Normal 2.0-7.7 [facility] Comment on above: Performed By: #### M , #### [facility] [address] [place], [address] Basophils/100 WBC (Bld) 0.6 % Normal 0-1 [facility] Comment on above: Performed By: #### M , #### [facility] [address] [place], [address] Eosinophils/100 WBC (Bld) 1.4 % Normal 0-5 [facility] Comment on above: Performed By: #### M , #### [facility] [address] [place], [address] Erythrocyte distribution width (RBC) [Ratio] 18.6 % High 11.6-14.6 [facility] Comment on above: Performed By: #### M , #### [facility] [address] [place], [address] Hematocrit (Bld) [Volume fraction] 36.9 % Low 37-47 [facility] Comment on above: Performed By: #### M , #### [facility] [address] [place], [address] Hemoglobin (Bld) [Mass/Vol] 11.4 g/dL Low 12.0-15.0 [facility] Comment on above: Performed By: #### M , #### [facility] [address] [place], [address] IG% 0.400 Normal 0.0-0.9 [facility] Comment on above: Result Comment: IG% - Immature Granulocytes (promyelocytes, myelocytes and metamyelocytes) > 1% indicates that a LEFT SHIFT is Present. Performed By: #### M , #### [facility] [address] [place], [address] Lymphocytes/100 WBC (Bld) 13.9 % Low 19-41 [facility] Comment on above: Performed By: #### M , #### [facility] [address] [place], [address] MCH (RBC) [Entitic mass] 28.6 pg Normal 27.0-32.0 [facility] Comment on above: Performed By: #### M , #### [facility] [address] [place], [address] MCHC (RBC) [Mass/Vol] 30.9 g/dL Low 32-36 [facility] Comment on above: Performed By: #### M , L4 #### [facility] [address] [place], [address] MCV (RBC) [Entitic vol] 92.5 fL Normal 81-99 [facility] Comment on above: Performed By: #### M , L4 #### [facility] [address] [place], [address] Monocytes/100 WBC (Bld) 10.6 % High 0-10 [facility] Comment on above: Performed By: #### M , L4 #### [facility] [address] [place], [address] Neutrophils/100 WBC (Bld) 73.1 % High 47-70 [facility] Comment on above: Performed By: #### M , L4 #### [facility] [address] [place], [address] Nucleated RBC (Bld) [#/Vol] 0 10*3/uL Normal 0-5 [facility] Comment on above: Performed By: #### M , L4 #### [facility] [address] [place], [address] Platelet mean volume (Bld) [Entitic vol] 11.6 fL Normal 6.2-12.0 [facility] Comment on above: Performed By: #### M , L4 #### [facility] [address] [place], [address] Platelets (Bld) [#/Vol] 237 10*3/uL Normal 150-450 [facility] Comment on above: Performed By: #### M 100.2199, L4.2010 #### [facility] [address] [place], [address] RBC (Bld) [#/Vol] 3.99 10*6/uL Low 4.2-5.4 [facility] Comment on above: Performed By: #### M 100.2199, L4.2010 #### [facility] [address] [place], [address] RDW SD 61.7 fl High 35.1-43.9 [facility] Comment on above: Performed By: #### M .2199, L4.2010 #### [facility] [address] [place], [address] WBC (Bld) [#/Vol] 7.0 10*3/uL Normal 4.4-11.0 [facility] Comment on above: Performed By: #### M .2199, L4.2010 #### [facility] [address] [place], [address] Carbon dioxide, total [Moles /volume] in Central venous bloodOrdered By: Alonzo John on 01-13-2025 CO2 [Moles/Vol] 25.5 mmol/L 21.0-32.0 [facility] Chloride assayOrdered By: Negar John on 01-13-2025 Chloride [Moles/Vol] 99 mmol/L 98-108 [facility] Comprehensive Metabolic Prof ilon 01-13-2025 Albumin [Mass/Vol] 3.7 g/dL Normal 3.4-4.8 [facility] Comment on above: Performed By: #### M 100.2199, L4.2010 #### [facility] [address] [place], [address] Albumin/Globulin [Mass ratio] 1.0 {ratio} Normal 0.9-2.4 [facility] Comment on above: Performed By: #### M 100.220, #### [facility] [address] [place], [address] ALK PHOS 68 U/L Normal 35-104 [facility] Comment on above: Performed By: #### M , #### [facility] [address] [place], [address] ALT [Catalytic activity/Vol] 18 U/L Normal <=34 [facility] Comment on above: Performed By: #### M , L4 #### [facility] [address] [place], [address] AST [Catalytic activity/Vol] 24 U/L Normal <=31 [facility] Comment on above: Performed By: #### M , L4 #### [facility] [address] [place], [address] Bilirubin [Mass/Vol] 0.56 mg/dL Normal 0.00-1.30 [facility] Comment on above: Performed By: #### M , L4 #### [facility] [address] [place], [address] BUN/CRE 24.0 RATIO High 10-20 [facility] Comment on above: Performed By: #### M , L4 #### [facility] [address] [place], [address] Calcium [Mass/Vol] 9.4 mg/dL Normal 7.6-11.0 [facility] Comment on above: Performed By: #### M , L4 #### [facility] [address] [place], [address] Chloride [Moles/Vol] 99 mmol/L Normal 98-108 [facility] Comment on above: Performed By: #### M , #### [facility] [address] [place], [address] CO2 [Moles/Vol] 25.5 mmol/L Normal 21.0-32.0 [facility] Comment on above: Performed By: #### M , #### [facility] [address] [place], [address] Creatinine [Mass/Vol] 1.77 mg/dL High 0.70-1.20 [facility] Comment on above: Performed By: #### M , #### [facility] [address] [place], [address] ECRCL 18.84 ml/min Low 50-250 [facility] Comment on above: Performed By: #### M , #### [facility] [address] [place], [address] GAP 13 Normal 5-15 [facility] Comment on above: Performed By: #### M , #### [facility] [address] [place], [address] GFR/1.73 sq M.predicted among non-blacks MDRD (S/P/Bld) [Vol rate/Area] 27 mL/min/{1.73_m2} Low >60 [facility] Comment on above: Result Comment: mL/m in/1.73m2 CKD-EPI Creatinine Equation (2020) Performed By: #### M , #### [facility] [address] [place], [address] Globulin (S) [Mass/Vol] 3.8 g/dL Normal 2.2-4.2 [facility] Comment on above: Performed By: #### M , #### [facility] [address] [place], [address] Glucose [Mass/Vol] 134 mg/dL High 70-99 [facility] Comment on above: Performed By: #### M 100.2200, L400.2010 #### [facility] [address] [place], [address] Potassium [Moles/Vol] 4.7 mmol/L Normal 3.3-5.1 [facility] Comment on above: Performed By: #### M 100.2199, L4.2010 #### [facility] [address] [place], [address] Sodium [Moles/Vol] 137 mmol/L Normal 133-145 [facility] Comment on above: Performed By: #### M 100.2199, L4.2010 #### [facility] [address] [place], [address] T PROT 7.5 g/dL Normal 5.9-8.4 [facility] Comment on above: Performed By: #### M 100.2199, L400.2010 #### [facility] [address] [place], [address] Urea nitrogen [Mass/Vol] 42 mg/dL High 4-19 [facility] Comment on above: Performed By: #### M 100.2199, L4.2010 #### [facility] [address] [place], [address] Eosinophil percentageOrdered By: Alonzo John on 01-13-2025 Eosinophils/100 WBC (Bld) 1.4 % 0-5 [facility] Erythrocyte distribution wid th ratioOrdered By: Alonzo John on 01-13-2025 Erythrocyte distribution width (RBC) [Ratio] 18.6 % High 11.6-14.6 [facility] Erythrocyte distribution wid th standard deviationOrdered By: Alonzo John on 01-13-2025 Erythrocyte distribution width (RBC) [Ratio] 61.7 fl High 35.1-43.9 [facility] Glomerular filtration rate ( GFR) estimation/1.73 sq m using serum, plasma, or whole bOrdered By: Alonzo John on 01-13-2025 GFR/1.73 sq M.predicted among non-blacks MDRD (S/P/Bld) [Vol rate/Area] 27 mL/min/{1.73_m2} Low >60 [facility] Comment on above: mL/min/1.73m2 CKD-EP I Creatinine Equation (2020) Hematocrit Auto (Bld) [Volum e fraction]Ordered By: Alonzo John on 01-13-2025 Hematocrit (Bld) [Volume fraction] 36.9 % Low 37-47 [facility] Hemoglobin measurementOrdere d By: Alonzo John on 01-13-2025 Hemoglobin (Bld) [Mass/Vol] 11.4 g/dL Low 12.0-15.0 [facility] Immature granulocytes/100 WB C Auto (Bld)Ordered By: Alonzo John on 01-13-2025 Immature granulocytes/100 WBC (Bld) 0.400 % 0.0-0.9 [facility] Comment on above: IG% - Immature Granu locytes (promyelocytes, myelocytes and metamyelocytes) > 1% indicates that a LEFT SHIFT is Present. LDHon 01-13-2025 LDH 178 U/L Normal 84-246 [facility] Comment on above: Order Comment: 1 Performed By: #### L 100.0100, L500.2500 #### [facility] [address] [place] [address], [id number] Laboratory - Chemistry and C hemistry - challengeOrdered By: Alonzo John on 01-13-2025 AST [Catalytic activity/Vol] 24 U/L <32 [facility] Lactate dehydrogenase (LDH) measurementOrdered By: Alonzo John on 01-13-2025 LDH [Catalytic activity/Vol] 178 U/L 84-246 [facility] MCV (mean corpuscular volume ) determinationOrdered By: Alonzo John on 01-13-2025 MCV (RBC) [Entitic vol] 92.5 fL 81-99 [facility] Mean corpuscular hemoglobin (MCH) determinationOrdered By: Alonzo John on 01-13-2025 MCH (RBC) [Entitic mass] 28.6 pg 27.0-32.0 [facility] Mean corpuscular hemoglobin concentration (MCHC) determinationOrdered By: Alonzo John on 01-13-2025 MCHC (RBC) [Mass/Vol] 30.9 g/dL Low 32-36 [facility] Mean platelet volume determi nationOrdered By: Alonzo John on 01-13-2025 Platelet mean volume (Bld) [Entitic vol] 11.6 fL 6.2-12.0 [facility] Monocyte percentageOrdered B y: Alonzo John on 01-13-2025 Monocytes/100 WBC (Bld) 10.6 % High 0-10 [facility] Neutrophil percentageOrdered By: Alonzo John on 01-13-2025 Neutrophils/100 WBC (Bld) 73.1 % High 47-70 [facility] Nucleated red blood cell per centageOrdered By: Alonzo John on 01-13-2025 Nucleated RBC/100 WBC (Bld) [Ratio] 0 % 0-5 [facility] Oncology Visit Reporton 01-01 Oncology Visit Report [facility] [place] [facility] [address] [place] [address] OFFICE VISIT Date of Service: 01/13/25 1541 MR#: [id number] Acct: [id number] Name: NESTOR MONTES DE OCA I Rep #: [id number] : 1935 From: Alonzo John MD Age/Sex: 89/F Location: [facility] [place] Status: Signed HPI Subjective Date of Service [...] back pain, taking Tylenol with no improvement. PFSH Medical History Pleural effusion Atrial fibrillation [...] Allergies sulfamethoxazole (From ) Allergy (Intermediate, Verified 01/13/25 15:46) Dizziness trimethoprim (From ) Allergy (Intermediate, Verified 01/13/25 15:46) Dizziness Penicillins [...] mg PO BID 10/30/24 01/13/25 His tory jcwvywfv-zobw-dgbe 8 mg-folic 400 1 tab PO QDAY 10/30/24 01/13/25 H istory mcg-K 50 mcg-lutein 300 mcg tablet (Centrum Silver Women) potassium chloride 20 mEq 20 meq PO DAILY #90 tabs 11/26/24 01/13/25 Rx tablet,extended release(part/cryst) Have you fallen in the past year?: No Central Venous Ac (more content not included)... Normal [facility] Platelet countOrdered By: Negar John on 01-13-2025 Platelets (Bld) [#/Vol] 237 10*3/uL 150-450 [facility] Potassium measurement (mass/ volume)Ordered By: Alonzo John on 01-13-2025 Potassium (Unsp spec) [Mass/Vol] 4.7 mmol/L 3.3-5.1 [facility] RBC Auto (Bld) [#/Vol]Ordere d By: Alonzo John on 01-13-2025 RBC (Bld) [#/Vol] 3.99 10*6/uL Low 4.2-5.4 [facility] Serum creatinine measurement (mass/volume)Ordered By: Alonzo John on 01-13-2025 Creatinine [Mass/Vol] 1.77 mg/dL High 0.70-1.20 [facility] Serum globulin measurementOr dered By: Alonzo John on 01-13-2025 Globulin (S) [Mass/Vol] 3.8 g/dL 2.2-4.2 [facility] Serum glucose measurement (m ass/volume)Ordered By: Alonzo John on 01-13-2025 Glucose [Mass/Vol] 134 mg/dL High 70-99 [facility] Serum or plasma alanine salazar otransferase (ALT) measurementOrdered By: Alonzo John on 01-13-2025 ALT [Catalytic activity/Vol] 18 U/L <35 [facility] Serum or plasma albumin krysten urement (mass/volume)Ordered By: Alonzo John on 01-13-2025 Albumin [Mass/Vol] 3.7 g/dL 3.4-4.8 [facility] Serum or plasma albumin/glob ulin mass ratioOrdered By: Alonzo John on 01-13-2025 Albumin/Globulin [Mass ratio] 1.0 {ratio} 0.9-2.4 [facility] Serum or plasma alkaline ewelina sphatase measurementOrdered By: Alonzo John on 01-13-2025 ALP [Catalytic activity/Vol] 68 U/L 35-104 [facility] Serum or plasma calcium krysten urement (mass/volume)Ordered By: Alonzo John on 01-13-2025 Calcium [Mass/Vol] 9.4 mg/dL 7.6-11.0 [facility] Serum or plasma urea nitroge n measurement (mass/volume)Ordered By: Alonzo John on 01-13-2025 Urea nitrogen [Mass/Vol] 42 mg/dL High 07-20 [facility] Sodium levelOrdered By: Niels John on 01-13-2025 Sodium [Moles/Vol] 137 mmol/L 133-145 [facility] Total proteinOrdered By: Les John on 01-13-2025 Protein [Mass/Vol] 7.5 g/dL 5.9-8.4 [facility] White blood cell (WBC) count Ordered By: Alonzo John on 01-13-2025 WBC (Bld) [#/Vol] 7.0 10*3/uL 4.4-11.0 [facility] Anion gap in Serum or Plasma Ordered By: Royce Garcia on 11-28-2024 Anion gap [Moles/Vol] 12 mmol/L 08-15 [facility] BUN/creatinine ratioOrdered By: Royce Garcia on 11-28-2024 Urea nitrogen/Creatinine [Mass ratio] 29.0 mg/mg High 01-20 [facility] Basic Metabolic Profile (BMP )on 11-28-2024 BUN/CRE 29.0 RATIO High 01-20 [facility] Comment on above: Order Comment: Order Date: 11/18/24Order Info: 0667-1 - BMP Performed By: #### L 100.0100, L500.2500 #### [facility] [address] [place], [address] GAP 12 Normal 08-15 [facility] Comment on above: Order Comment: Order Date: 11/18/24Order Info: 0667-1 - BMP Performed By: #### L 100.0100, L500.2500 #### [facility] [address] [place], [address] Potassium [Moles/Vol] 4.4 mmol/L Normal 3.3-5.1 [facility] Comment on above: Order Comment: Order Date: 11/18/24Order Info: 0667-1 - BMP Performed By: #### L 100.0100, L500.2500 #### [facility] [address] [place], [place], [address] Breast imaging reportOrdered By: Estella Ferro on 11-28-2024 Study report [facility] Imaging Services [address] [place] [address] SCREEN MAMM (CAD) W/LISANDRO UNI R MR#: [id number] Acct: [id number] Name: NESTOR MONTES DE OCA I Rep #: [id number] : 1935 F 89 From: Trevin Hansen MD PCP: Dr. Waqas Palma MD Status: REG C CURT Study:SCREEN MAMM (CAD) W/LISANDRO UNI R Date of Exam: 11/28/24 Exam# [id number] Ordering Dr: Robinson Yepez DO EXAM: SCREEN [...] be mailed to the patient. Reading Location: [id number] CC: Dr. Waqas Palma MD; Dr. Robinson Yepez DO ~ Reservation Agent: Signed [facility] Carbon dioxide, total [Moles /volume] in Central venous bloodOrdered By: Royce Garcia on 11-28-2024 CO2 [Moles/Vol] 26.6 mmol/L Normal 21.0-32.0 [facility] Comment on above: Order Comment: Order Date: 11/18/24Order Info: 0667-1 - BMP Performed By: #### L 100.0100, L500.2500 #### [facility] [address] [place], [address] Chloride assayOrdered By: Griselda Garcia on 11-28-2024 Chloride [Moles/Vol] 100 mmol/L Normal 98-108 [facility] Comment on above: Order Comment: Order Date: 11/18/24Order Info: 0667-1 - BMP Performed By: #### L 100.0100, L500.2500 #### [facility] [address] [place], [address] Glomerular filtration rate ( GFR) estimation/1.73 sq m using serum, plasma, or whole bOrdered By: Royce Garcia on 11-28-2024 GFR/1.73 sq M.predicted among non-blacks MDRD (S/P/Bld) [Vol rate/Area] 42 mL/min/{1.73_m2} Low >60 [facility] Comment on above: mL/min/1.73m2 CKD-EP I Creatinine Equation (2020) Order Comment: Order Date: 11/18/24Order Info: 0667-1 - BMP Result Comment: mL/m in/1.73m2 CKD-EPI Creatinine Equation (2020) Performed By: #### L 100.0100, L500.2500 #### [facility] [address] [place], [address] Potassium measurement (mass/ volume)Ordered By: Royce Garcia on 11-28-2024 Potassium (Unsp spec) [Mass/Vol] 4.4 mmol/L 3.3-5.1 [facility] SCREEN MAMM (CAD) W/LISANDRO UNI Hank 11-28-2024 SCREEN MAMM (CAD) W/LISANDRO UNI R [facility] Imaging Services [address] [place] [address] SCREEN MAMM (CAD) W/LISANDRO UNI R MR#: [id number] Acct: [id number] Name: NESTOR MONTES DE OCA I Rep #: [id number] : 1935 F 89 From: Estella Anne i, MD PCP: Dr. Waqas Palma MD Status: REG CLI Study: SCREEN MAMM (CAD) W/LISANDRO UNI R Date of Exam: 0 11/28/24 Exam# [id number] Ordering Dr: Robinson Yepez DO EXAM: SCREEN [...] be mailed to the patient. Reading Location: [id number] CC: Dr. Waqas Palma MD; Dr. Robinson Yepez DO Reservation Agent: Signed Normal [facility] Serum creatinine measurement (mass/volume)Ordered By: Royce Garcia on 11-28-2024 Creatinine [Mass/Vol] 1.24 mg/dL High 0.70-1.20 [facility] Comment on above: Order Comment: Order Date: 11/18/24Order Info: 0667-1 - BMP Performed By: #### L 100.0100, L500.2500 #### [facility] [address] [place], [place] [address]all [facility] [place], [address] Serum glucose measurement (m ass/volume)Ordered By: Royce Garcia on 11-28-2024 Glucose [Mass/Vol] 107 mg/dL High 70-99 [facility] Comment on above: Order Comment: Order Date: 11/18/24Order Info: 0667-1 - BMP Performed By: #### L 100.0100, L500.2500 #### [facility] [address] [place], [address] Serum or plasma calcium krysten urement (mass/volume)Ordered By: Royce Garcia on 11-28-2024 Calcium [Mass/Vol] 9.6 mg/dL Normal 7.6-11.0 [facility] Comment on above: Order Comment: Order Date: 11/18/24Order Info: 0667-1 - BMP Performed By: #### L 100.0100, L500.2500 #### [facility] [address] [place], [place], [address] Serum or plasma urea nitroge n measurement (mass/volume)Ordered By: Royce Garcia on 11-28-2024 Urea nitrogen [Mass/Vol] 36 mg/dL High 4-19 [facility] Comment on above: Order Comment: Order Date: 11/18/24Order Info: 0667-1 - BMP Performed By: #### L 100.0100, L500.2500 #### [facility] [address] [place], [place], [address] Sodium levelOrdered By: Maribeth Garcia on 11-28-2024 Sodium [Moles/Vol] 138 mmol/L Normal 133-145 [facility] Comment on above: Order Comment: Order Date: 11/18/24Order Info: 0667-1 - BMP Performed By: #### L 100.0100, L500.2500 #### [facility] [address] [place], [address] Cardiology Visit Reporton Cardiology Visit Report [facility] [address] [place] [address] OFFICE VISIT Date of Service: 10/30/24 MR#: [id number] Acct: [id number] Name: NESTOR MONTES DE OCA I Rep #: [id number] : 1935 Provider: Dr. Luis Fernando Garza MD Age/Sex: 89/F Location: [facility] [place] Status: Signed HPI HPI History of Present [...] Pulse Source Monitor Intake Visit Reasons: S/P [facility] 10/03 Accompanied by: Grandson Is patient in pain?: No Allergies sulfamethoxazole (From Septra) Allergy (Intermediate, Verified 10/30/24 13:33) Dizziness trimethoprim (From Septra) Allergy (Intermediate, Verified 10/30/24 13:33) Dizziness Penicillins [...] mg PO BID 10/30/24 10/30/24 His tory ykfqhiec-aajz-efrn 8 mg-folic 400 1 tab PO QDAY 10/30/24 10/30/24 H istory mcg-K 50 mcg-lutein 300 mcg tablet (Centrum Silver Women) Have you fallen in the past year?: Yes (1 fall-away from walker and lost balance) [facility] Medical History Pleural effusion Atrial fibrillation with [...] you part (more content not included)... Normal [facility] Basic Metabolic Profile (BMP )on 10-04-2024 BUN Normal 4-19 [facility] Comment on above: Result Comment: Canc elled via OM: Order cancelled - Patient discharged Performed By: #### L 100.0100, L500.2500 #### [facility] [address] [facility] [address] BUN/CRE Normal 10-20 [facility] Comment on above: Result Comment: Canc elled via OM: Order cancelled - Patient discharged Performed By: #### L 100.0100, L500.2500 #### [facility] [address] [place], [address] Calcium Normal 7.6-11.0 [facility] Comment on above: Result Comment: Canc elled via OM: Order cancelled - Patient discharged Performed By: #### L 100.0100, L500.2500 #### [facility] [address] [place], [address] CL Normal 98-108 [facility] Comment on above: Result Comment: Canc elled via OM: Order cancelled - Patient discharged Performed By: #### L 100.0100, L500.2500 #### [facility] [address] [place], [address] CO2 Normal 21.0-32.0 [facility] Comment on above: Result Comment: Canc elled via OM: Order cancelled - Patient discharged Performed By: #### L 100.0100, L500.2500 #### [facility] [address] [place], [address] CREAT,SERUM Normal 0.70-1.20 [facility] Comment on above: Result Comment: Canc elled via OM: Order cancelled - Patient discharged Performed By: #### L 100.0100, L500.2500 #### [facility] [address] [place], [address] eGFR Normal >60 [facility] Comment on above: Result Comment: Canc elled via OM: Order cancelled - Patient discharged Performed By: #### L 100.0100, L500.2500 #### [facility] [address] [place], [address] GAP Normal 5-15 [facility] Comment on above: Result Comment: Canc elled via OM: Order cancelled - Patient discharged Performed By: #### L 100.0100, L500.2500 #### [facility] [address] [place], [address] GLU Normal 70-99 [facility] Comment on above: Result Comment: Canc elled via OM: Order cancelled - Patient discharged Performed By: #### L 100.0100, L500.2500 #### [facility] [address] [place], [address] Potassium Normal 3.3-5.1 [facility] Comment on above: Result Comment: Canc elled via OM: Order cancelled - Patient discharged Performed By: #### L 100.0100, L500.2500 #### [facility] [address] [place], [address] Basic Metabolic Profile (BMP) Normal 133-145 [facility] Comment on above: Result Comment: Canc elled via OM: Order cancelled - Patient discharged Performed By: #### L 100.0100, L500.2500 #### [facility] [address] [place], [address] CBC W/Diff, Automatedon 07-0 -2024 Absolute Neut Normal 2.0-7.7 [facility] Comment on above: Result Comment: Canc elled via OM: Order cancelled - Patient discharged Performed By: #### L 100.0100, L500.2500 #### [facility] [address] [place], [address] HCT Normal 37-47 [facility] Comment on above: Result Comment: Canc elled via OM: Order cancelled - Patient discharged Performed By: #### L 100.0100, L500.2500 #### [facility] [address] [place], [address] HGB Normal 12.0-15.0 [facility] Comment on above: Result Comment: Canc elled via OM: Order cancelled - Patient discharged Performed By: #### L 100.0100, L500.2500 #### [facility] [address] [place], [address] MCH Normal 27.0-32.0 [facility] Comment on above: Result Comment: Canc elled via OM: Order cancelled - Patient discharged Performed By: #### L 100.0100, L500.2500 #### [facility] [address] [place], [address] MCHC Normal 32-36 [facility] Comment on above: Result Comment: Canc elled via OM: Order cancelled - Patient discharged Performed By: #### L 100.0100, L500.2500 #### [facility] [address] [place], [address] MCV Normal 81-99 [facility] Comment on above: Result Comment: Canc elled via OM: Order cancelled - Patient discharged Performed By: #### L 100.0100, L500.2500 #### [facility] [address] [place], [address] NEUT% Normal 47-70 [facility] Comment on above: Result Comment: Canc elled via OM: Order cancelled - Patient discharged Performed By: #### L 100.0100, L500.2500 #### [facility] [address] [place], [address] PLT Normal 150-450 [facility] Comment on above: Result Comment: Canc elled via OM: Order cancelled - Patient discharged Performed By: #### L 100.0100, L500.2500 #### [facility] [address] [place], [address] RBC Normal 4.2-5.4 [facility] Comment on above: Result Comment: Canc elled via OM: Order cancelled - Patient discharged Performed By: #### L 100.0100, L500.2500 #### [facility] [address] [place], [address] RDW CV Normal 11.6-14.6 [facility] Comment on above: Result Comment: Canc elled via OM: Order cancelled - Patient discharged Performed By: #### L 100.0100, L500.2500 #### [facility] [address] [place], [address] RDW SD Normal 35.1-43.9 [facility] Comment on above: Result Comment: Canc elled via OM: Order cancelled - Patient discharged Performed By: #### L 100.0100, L500.2500 #### [facility] [address] [place], [address] WBC Normal 4.4-11.0 [facility] Comment on above: Result Comment: Canc elled via OM: Order cancelled - Patient discharged Performed By: #### L 100.0100, L500.2500 #### [facility] [address] [place], [address] Absolute lymphocyte countOrd ered By: Dedrick Mckeon on 10-03-2024 Lymphocytes Auto (Unsp spec) [#/Vol] 0.75 10*3/uL Low 0.83-4.51 [facility] Absolute neutrophil countOrd ered By: Dedrick Mckeon on 10-03-2024 Neutrophils (Bld) [#/Vol] 5.1 10*3/uL 2.0-7.7 [facility] Anion gap in Serum or Plasma Ordered By: Dedrick Mckeon on 10-03-2024 Anion gap [Moles/Vol] 12 mmol/L - [facility] Automated blood erythrocyte countOrdered By: Dedrick Mckeon on 10-03-2024 RBC (Bld) [#/Vol] 3.54 10*6/uL Low 4.2-5.4 [facility] Comment on above: Performed By: #### L 500.2500, L100.0100 #### [facility] [address] [place], [address] Automated blood hematocrit ( percentage)Ordered By: Dedrick Mckeon on 10-03-2024 Hematocrit (Bld) [Volume fraction] 31.7 % Low 37-47 [facility] Comment on above: Performed By: #### L 500.2500, L100.0100 #### [facility] [address] [place], [address] Automated lymphocyte count a s percentage of total leukocytesOrdered By: Dedrick Mckeon on 10-03-2024 Lymphocytes/100 WBC Auto (Unsp spec) 10.9 % Low 19-41 [facility] BUN/creatinine ratioOrdered By: Dedrick Mckeon on 10-03-2024 Urea nitrogen/Creatinine [Mass ratio] 23.8 mg/mg High 10- [facility] Basic Metabolic Profile (BMP )on 10-03-2024 BUN/CRE 23.8 RATIO High 10-20 [facility] Comment on above: Performed By: #### L 500.2500, L100.0100 #### [facility] [address] [place], [address] ECRCL 25.67 ml/min Low 50-250 [facility] Comment on above: Performed By: #### L 500.2500, L100.0100 #### [facility] [address] [place], [address] GAP 12 Normal 5-15 [facility] Comment on above: Performed By: #### L 500.2500, L100.0100 #### [facility] [address] [place], [address] Potassium [Moles/Vol] 3.6 mmol/L Normal 3.3-5.1 [facility] Comment on above: Performed By: #### L 500.2500, L100.0100 #### [facility] [address] [place], [address] Basophil percentageOrdered B y: Dedrick Mckeon on 10-03-2024 Basophils/100 WBC (Bld) 0.9 % Normal 0-1 [facility] Comment on above: Performed By: #### L 500.2500, L100.0100 #### [facility] [address] [place], [address] CBC W/Diff, Automatedon 07-0 Absolute Lymph 0.75 X10 3/uL Low 0.83-4.51 [facility] Comment on above: Performed By: #### L 500.2500, L100.0100 #### [facility] [address] [place], [address] Absolute Neut 5.1 X10 3/uL Normal 2.0-7.7 [facility] Comment on above: Performed By: #### L 500.2500, L100.0100 #### [facility] [address] [place], [address] IG% 0.300 Normal 0.0-0.9 [facility] Comment on above: Result Comment: IG% - Immature Granulocytes (promyelocytes, myelocytes and metamyelocytes) > 1% indicates that a LEFT SHIFT is Present. Performed By: #### L 500.2500, L100.0100 #### [facility] [address] [place], [address] Lymphocytes/100 WBC (Bld) 10.9 % Low 19-41 [facility] Comment on above: Performed By: #### L 500.2500, L100.0100 #### [facility] [address] [place], [address] Nucleated RBC (Bld) [#/Vol] 0 10*3/uL Normal 0-5 [facility] Comment on above: Performed By: #### L 500.2500, L100.0100 #### [facility] [address] [place], [address] RDW SD 49.0 fl High 35.1-43.9 [facility] Comment on above: Performed By: #### L 500.2500, L100.0100 #### [facility] [address] [place], [address] Carbon dioxide, total [Moles /volume] in Central venous bloodOrdered By: Dedrick Mckeon on 10-03-2024 CO2 [Moles/Vol] 27.7 mmol/L Normal 21.0-32.0 [facility] Comment on above: Performed By: #### L 500.2500, L100.0100 #### [facility] [address] [place], [address] Chloride assayOrdered By: Kwame Mckeon on 10-03-2024 Chloride [Moles/Vol] 96 mmol/L Low 98-108 [facility] Comment on above: Performed By: #### L 500.2500, L100.0100 #### [facility] [address] [place], [address] Electrocardiogram reportOrde red By: Luis Fernando Garza on 10-03-2024 EKG study [facility] [address] [place] [address] 12 Lead EKG 10/02/24 0921 MR#: [id number] Acct: [id number] Name: NESTOR MONTES DE OCA I Rep #:[id number] : 1935 89 From: Luis Fernando Garza MD Attending Dr: Dr. Dedrick Mckeon MD Status: ADM IN Ordering Dr: Dedrick Mckeon MD Date: Location: [facility] Sex: F C Admitted: 10/01/24 Test Reason [...] UNCONFIRMED Confirmed by KAYLA KINNEY, LUIS FERNANDO ([id number]), managing editor MARCUS VARELA ([id number]) on 10/03/2024 5:58:51 AM Referred By: MIKE Confirmed By: LUIS FERNANDO GARZA MD 10/03/24 0558 Date _ Luis Fernando Garza MD CC: Dr. Dedrick Mckeon MD; Dr. Waqas Palma MD ~ Signed [facility] Other Phone: Eosinophil percentageOrdered By: Dedrick Mckeon on 10-03-2024 Eosinophils/100 WBC (Bld) 4.1 % Normal 0-5 [facility] Comment on above: Performed By: #### L 500.2500, L100.0100 #### [facility] [address] [place], [place], [address] Erythrocyte distribution wid th ratioOrdered By: Dedrick Mckeon on 10-03-2024 Erythrocyte distribution width (RBC) [Ratio] 14.9 % High 11.6-14.6 [facility] Comment on above: Performed By: #### L 500.2500, L100.0100 #### [facility] [address] [place], [place], [address] Erythrocyte distribution wid th standard deviationOrdered By: Dedrick Mckeon on 10-03-2024 Erythrocyte distribution width (RBC) [Ratio] 49.0 fl High 35.1-43.9 [facility] Glomerular filtration rate ( GFR) estimation/1.73 sq m using serum, plasma, or whole bOrdered By: Dedrick Mckeon on 10-03-2024 GFR/1.73 sq M.predicted among non-blacks MDRD (S/P/Bld) [Vol rate/Area] 39 mL/min/{1.73_m2} Low >60 [facility] Comment on above: mL/min/1.73m2 CKD-EP I Creatinine Equation (2020) Result Comment: mL/m in/1.73m2 CKD-EPI Creatinine Equation (2020) Performed By: #### L 500.2500, L100.0100 #### [facility] [address] [facility] [place], [address] Hemoglobin measurementOrdere d By: Dedrick Mckeon on 10-03-2024 Hemoglobin (Bld) [Mass/Vol] 10.4 g/dL Low 12.0-15.0 [facility] Comment on above: Performed By: #### L 500.2500, L100.0100 #### [facility] [address] [facility] [place], [address] Immature granulocytes/100 WB C Auto (Bld)Ordered By: Dedrick Mckeon on 10-03-2024 Immature granulocytes/100 WBC (Bld) 0.300 % 0.0-0.9 [facility] Comment on above: IG% - Immature Granu locytes (promyelocytes, myelocytes and metamyelocytes) > 1% indicates that a LEFT SHIFT is Present. MCV (mean corpuscular volume ) determinationOrdered By: Dedrick Mckeon on 10-03-2024 MCV (RBC) [Entitic vol] 89.5 fL Normal 81-99 [facility] Comment on above: Performed By: #### L 500.2500, L100.0100 #### [facility] [address] [place], [address] Mean corpuscular hemoglobin (MCH) determinationOrdered By: Dedrick Mckeon on 10-03-2024 MCH (RBC) [Entitic mass] 29.4 pg Normal 27.0-32.0 [facility] Comment on above: Performed By: #### L 500.2500, L100.0100 #### [facility] [address] [place], [address] Mean corpuscular hemoglobin concentration (MCHC) determinationOrdered By: Dedrick Mckeon on 10-03-2024 MCHC (RBC) [Mass/Vol] 32.8 g/dL Normal 32-36 [facility] Comment on above: Performed By: #### L 500.2500, L100.0100 #### [facility] [address] [facility] [place], [address] Mean platelet volume determi nationOrdered By: Dedrick Mckeon on 10-03-2024 Platelet mean volume (Bld) [Entitic vol] 10.8 fL Normal 6.2-12.0 [facility] Comment on above: Performed By: #### L 500.2500, L100.0100 #### [facility] [address] [place], [address] Monocyte percentageOrdered B y: Dedrick Mckeon on 10-03-2024 Monocytes/100 WBC (Bld) 10.4 % High 0-10 [facility] Comment on above: Performed By: #### L 500.2500, L100.0100 #### [facility] [address] [place], [address] Neutrophil percentageOrdered By: Dedrick Mckeon on 10-03-2024 Neutrophils/100 WBC (Bld) 73.4 % High 47-70 [facility] Comment on above: Performed By: #### L 500.2500, L100.0100 #### [facility] [address] [place], [address] Nucleated red blood cell per centageOrdered By: Dedrick Mckeon on 10-03-2024 Nucleated RBC/100 WBC (Bld) [Ratio] 0 % 0-5 [facility] Platelet countOrdered By: Kwame ruano Mike on 10-03-2024 Platelets (Bld) [#/Vol] 292 10*3/uL Normal 150-450 [facility] Comment on above: Performed By: #### L 500.2500, L100.0100 #### [facility] [address] [place], [address] Potassium measurement (mass/ volume)Ordered By: Dedrick Mckeon on 10-03-2024 Potassium (Unsp spec) [Mass/Vol] 3.6 mmol/L 3.3-5.1 [facility] Serum creatinine measurement (mass/volume)Ordered By: Dedrick Mckeon on 10-03-2024 Creatinine [Mass/Vol] 1.31 mg/dL High 0.70-1.20 [facility] Comment on above: Performed By: #### L 500.2500, L100.0100 #### [facility] [address] [place], [address] Serum glucose measurement (m ass/volume)Ordered By: Dedrick Mckeon on 10-03-2024 Glucose [Mass/Vol] 73 mg/dL Normal 70-99 [facility] Comment on above: Performed By: #### L 500.2500, L100.0100 #### [facility] [address] [place], [address] Serum or plasma calcium krysten urement (mass/volume)Ordered By: Dedrick Mckeon on 10-03-2024 Calcium [Mass/Vol] 8.7 mg/dL Normal 7.6-11.0 [facility] Comment on above: Performed By: #### L 500.2500, L100.0100 #### [facility] [address] [place], [address] Serum or plasma urea nitroge n measurement (mass/volume)Ordered By: Dedrick Mckeon on 10-03-2024 Urea nitrogen [Mass/Vol] 31 mg/dL High 4-19 [facility] Comment on above: Performed By: #### L 500.2500, L100.0100 #### [facility] [address] [place], [address] Sodium levelOrdered By: Laurent Mckeon on 10-03-2024 Sodium [Moles/Vol] 136 mmol/L Normal 133-145 [facility] Comment on above: Performed By: #### L 500.2500, L100.0100 #### [facility] [address] [place], [address] Urine Cultureon 10-03-2024 [facility] Citrobacter youngae [place] Count 80,000-100,000 Citrobacter youngae: REACTION Cefepime Islt CARLOS <=0.12 cefTRIAXone Islt CARLOS <=0.25 S Ciprofloxacin Islt CARLOS <=0.06 S Gentamicin Islt CARLOS <=1 S levoFLOXacin Islt CARLOS <=0.12 S Meropenem Islt CARLOS <=0.25 S Nitrofurantoin Islt CARLOS <=16 S Pip+Tazo Islt CARLOS <=4 S TMP SMX Islt CARLOS <=20 S [facility] Comment on above: Performed By: #### L 503.7505, L500.2500, L100.0100 #### [facility] [address] [place], [address] [facility] Citrobacter youngae [place] Count >100,000 Citrobacter youngae: REACTION Cefepime Islt CARLOS <=0.12 cefTRIAXone Islt CARLOS <=0.25 S Ciprofloxacin Islt CARLOS <=0.06 S Gentamicin Islt CARLOS <=1 S levoFLOXacin Islt CARLOS <=0.12 S Meropenem Islt CARLOS <=0.25 S Nitrofurantoin Islt CARLOS <=16 S Pip+Tazo Islt CARLOS <=4 S TMP SMX Islt CARLOS <=20 S [facility] Comment on above: Performed By: #### L 100.0100, L500.2500 #### [facility] [address] [place], [address] White blood cell (WBC) count Ordered By: Dedrick Mckeon on 10-03-2024 WBC (Bld) [#/Vol] 6.9 10*3/uL Normal 4.4-11.0 [facility] Comment on above: Performed By: #### L 500.2500, L100.0100 #### [facility] [address] [facility] [place], [address] 12 Lead EKGon 10-02-2024 12 Lead EKG [facility] Services [address] [place] [address] 12 Lead EKG 10/02/24 0921 MR#: [id number] Acct: [id number] Name: NESTOR MONTES DE OCA I Rep #: [id number] : 1935 89 From: Luis Fernando Garza MD Attending Dr: Dr. Dedrick Mckeon MD Status: ADM IN Ordering Dr: Dedrick Mckeon MD Date: 10/02/24 Location: [facility] Sex: F C Admitted: 10/01/24 Test Reason [...] Confirmed by KAYLA KINNEY, LUIS FERNANDO ([id number]), managing editor MARCUS VARELA ([id number]) on 10/03/2024 5:58:51 AM Referred By: MIKE Confirmed By: LUIS FERNANDO GARZA MD 10/03/24 0558 Date Luis Fernando Garza MD CC: Dr. Dedrick Mckeon MD; Dr. Waqas Palma MD Signed Normal [facility] Basic Metabolic Profile (BMP )on 10-02-2024 BUN/CRE 22.4 RATIO High 10-20 [facility] Comment on above: Performed By: #### M .2199, L4 #### [facility] [address] [place], [address] Calcium [Mass/Vol] 8.8 mg/dL Normal 7.6-11.0 [facility] Comment on above: Performed By: #### M .2199, L4 #### [facility] [address] [place], [address] Chloride [Moles/Vol] 99 mmol/L Normal 98-108 [facility] Comment on above: Performed By: #### M , L4 #### [facility] [address] [place], [address] CO2 [Moles/Vol] 24.3 mmol/L Normal 21.0-32.0 [facility] Comment on above: Performed By: #### M , L4 #### [facility] [address] [place], [address] Creatinine [Mass/Vol] 1.39 mg/dL High 0.70-1.20 [facility] Comment on above: Performed By: #### M , L4 #### [facility] [address] [place], [address] ECRCL 24.48 ml/min Low 50-250 [facility] Comment on above: Performed By: #### M , L4 #### [facility] [address] [place], [address] GAP 12 Normal 5-15 [facility] Comment on above: Performed By: #### M , L4 #### [facility] [address] [place], [address] GFR/1.73 sq M.predicted among non-blacks MDRD (S/P/Bld) [Vol rate/Area] 36 mL/min/{1.73_m2} Low >60 [facility] Comment on above: Result Comment: mL/m in/1.73m2 CKD-EPI Creatinine Equation (2020) Performed By: #### M 100.2200, L4.2010 #### [facility] [address] [place], [address] Glucose [Mass/Vol] 71 mg/dL Normal 70-99 [facility] Comment on above: Performed By: #### M 100.2199, L4 #### [facility] [address] [place], [address] Potassium [Moles/Vol] 4.0 mmol/L Normal 3.3-5.1 [facility] Comment on above: Performed By: #### M 100.2199, L4 #### [facility] [address] [place], [address] Sodium [Moles/Vol] 135 mmol/L Normal 133-145 [facility] Comment on above: Performed By: #### M .2199, L4 #### [facility] [address] [place], [address] Urea nitrogen [Mass/Vol] 31 mg/dL High 4-19 [facility] Comment on above: Performed By: #### M 100.2199, L4 #### [facility] [address] [place], [address] CBC W/Diff, Automatedon 07-0 -2024 Absolute Lymph 0.77 X10 3/uL Low 0.83-4.51 [facility] Comment on above: Performed By: #### L 100.0100, L500.2500, L501.5200 #### [facility] [address] [place], [address] Absolute Neut 5.1 X10 3/uL Normal 2.0-7.7 [facility] Comment on above: Performed By: #### L 100.0100, L500.2500, L501.5200 #### [facility] [address] [place], [address] Basophils/100 WBC (Bld) 0.7 % Normal 0-1 [facility] Comment on above: Performed By: #### L 100.0100, L500.2500, L501.5200 #### [facility] [address] [place], [address] Eosinophils/100 WBC (Bld) 4.2 % Normal 0-5 [facility] Comment on above: Performed By: #### L 100.0100, L500.2500, L501.5200 #### [facility] [address] [place], [address] Erythrocyte distribution width (RBC) [Ratio] 15.2 % High 11.6-14.6 [facility] Comment on above: Performed By: #### L 100.0100, L500.2500, L501.5200 #### [facility] [address] [place], [address] Hematocrit (Bld) [Volume fraction] 31.4 % Low 37-47 [facility] Comment on above: Performed By: #### L 100.0100, L500.2500, L501.5200 #### [facility] [address] [place], [address] Hemoglobin (Bld) [Mass/Vol] 10.2 g/dL Low 12.0-15.0 [facility] Comment on above: Performed By: #### L 100.0100, L500.2500, L501.5200 #### [facility] [address] [place], [address] IG% 0.100 Normal 0.0-0.9 [facility] Comment on above: Result Comment: IG% - Immature Granulocytes (promyelocytes, myelocytes and metamyelocytes) > 1% indicates that a LEFT SHIFT is Present. Performed By: #### L 100.0100, L500.2500, L501.5200 #### [facility] [address] [place], [address] Lymphocytes/100 WBC (Bld) 11.2 % Low 19-41 [facility] Comment on above: Performed By: #### L 100.0100, L500.2500, L501.5200 #### [facility] [address] [place], [address] MCH (RBC) [Entitic mass] 29.4 pg Normal 27.0-32.0 [facility] Comment on above: Performed By: #### L 100.0100, L500.2500, L501.5200 #### [facility] [address] [place], [address] MCHC (RBC) [Mass/Vol] 32.5 g/dL Normal 32-36 [facility] Comment on above: Performed By: #### L 100.0100, L500.2500, L501.5200 #### [facility] [address] [place], [address] MCV (RBC) [Entitic vol] 90.5 fL Normal 81-99 [facility] Comment on above: Performed By: #### L 100.0100, L500.2500, L501.5200 #### [facility] [address] [place], [address] Monocytes/100 WBC (Bld) 10.2 % High 0-10 [facility] Comment on above: Performed By: #### L 100.0100, L500.2500, L501.5200 #### [facility] [address] [place], [address] Neutrophils/100 WBC (Bld) 73.6 % High 47-70 [facility] Comment on above: Performed By: #### L 100.0100, L500.2500, L501.5200 #### [facility] [address] [place], [address] Nucleated RBC (Bld) [#/Vol] 0 10*3/uL Normal 0-5 [facility] Comment on above: Performed By: #### L 100.0100, L500.2500, L501.5200 #### [facility] [address] [place], [address] Platelet mean volume (Bld) [Entitic vol] 10.7 fL Normal 6.2-12.0 [facility] Comment on above: Performed By: #### L 100.0100, L500.2500, L501.5200 #### [facility] [address] [place], [address] Platelets (Bld) [#/Vol] 296 10*3/uL Normal 150-450 [facility] Comment on above: Performed By: #### L 100.0100, L500.2500, L501.5200 #### [facility] [address] [place], [address] RBC (Bld) [#/Vol] 3.47 10*6/uL Low 4.2-5.4 [facility] Comment on above: Performed By: #### L 100.0100, L500.2500, L501.5200 #### [facility] [address] [place], [address] RDW SD 50.5 fl High 35.1-43.9 [facility] Comment on above: Performed By: #### L 100.0100, L500.2500, L501.5200 #### [facility] [address] [place], [address] WBC (Bld) [#/Vol] 6.9 10*3/uL Normal 4.4-11.0 [facility] Comment on above: Performed By: #### L 100.0100, L500.2500, L501.5200 #### [facility] [address] [place], [address] CTA Chest W/WO Contraston CTA Chest W/WO Contrast [facility] Imaging Services [address] [place] [address] CTA Chest W/WO Contrast MR#: [id number] Acct: [id number] Name: NESTOR MONTES DE OCA I Rep #: [id number] : 1935 F 89 From: Shane Chiu MD PCP: Dr. Waqas Palma MD Status: ADM IN Study: CTA Chest W/WO Contrast Date of Exam: 10/02/24 Exam# [id number] Ordering Dr: Dedrick Mckeon MD PROCEDURE: CTA [...] lung melendez with free-flowing bilateral pleural effusions, [id number], and bibasilar atelectasis suggesting CHF. There is [...] Degenerative bony changes Diffuse atherosclerosis Reading Location: [id number] CC: Dr. Dedrick Mckeon MD; Dr. Waqas Palma MD Reservation Agent: Signed Normal [facility] Echocardiogram study reportO rdered By: Maame Damon on 10-02-[address] [facility] Services [address] [place] [address] Echo Complete 10/02/24 0615 MR#: [id number] Acct: [id number] Name: NESTOR MONTES DE OCA I Rep #:[id number] : 1935 89 From: Maame Damon MD Attending Dr: Dr. Dedrick Mckeon MD Status: ADM IN Ordering Dr: Dedrick Mckeon MD Date: Location: U Sex: F C Admitted: 10/01/24 [...] Ordering Physician: Dedrick Mckeon Referring Physician: Waqas Palma Performed By: Earline Cosme RDCS 10/02/24 1200 Date _ Maame Damon MD CC: Dr. Dedrick Mckeon MD; Dr. Waqas Palma MD ~ Date Dictated: 10/02/24 0615 Date Transcribed: 10/02/24 1200 Reservation Agent: Signed [facility] Work Phone: Electrocardiogram reportOrde red By: Luis Fernando Garza on 10-02-2024 EKG study [facility] Cardiovascular Services [address] [place] [address] 12 Lead EKG 10/01/24 1104 MR#: [id number] Acct: [id number] Name: NESTOR MONTES DE OCA I Rep #:[id number] : 1935 89 From: Luis Fernando Garza MD Attending Dr: Dr. Dedrick Mckeon MD Status: ADM IN Ordering Dr: Renzo Ward MD Date: Location: [facility] Sex: F C Admitted: 10/01/24 Test Reason [...] ECG Confirmed by KAYLA KINNEY, LUIS FERNANDO ([id number]), managing editor MARCUS VARELA ([id number]) on 10/02/2024 1:40:49 PM Referred By: Confirmed By: LUIS FERNANDO AGRZA MD 10/02/24 1340 Date _ Luis Fernando Garza MD CC: Dr. Renzo Ward MD; Dr. Dedrick Mckeon MD; Dr. Waqas Palma MD ~ Signed [facility] Other Phone: Magnesiumon 10-02-2024 Magnesium [Mass/Vol] 1.7 mg/dL Normal 1.5-2.2 [facility] Comment on above: Performed By: #### M 100.2200, L400.2010 #### [facility] Laboratory [address] [place] [address], [phone] Magnesium measurement (mass/ volume)Ordered By: Dedrick Mckeon on 10-02-2024 Magnesium (Unsp spec) [Mass/Vol] 1.7 mg/dL 1.5-2.2 [facility] Phosphoruson 10-02-2024 Phosphate [Mass/Vol] 4.4 mg/dL Normal 2.7-4.5 [facility] Comment on above: Performed By: #### L 100.0100, L500.2500 #### [facility] Laboratory [address] [place], [address] 12 Lead EKGon 10-01-2024 12 Lead EKG [facility] Cardiovascular Services [address] [place] [address] 12 Lead EKG 10/01/24 1104 MR#: [id number] Acct: [id number] Name: NESTOR MONTES DE OCA I Rep #: [id number] : 1935 89 From: Luis Fernando Garza MD Attending Dr: Dr. Dedrick Mckeon MD Status: ADM IN Ordering Dr: Renzo Ward MD Date: 10/01/24 Location: [facility] Sex: F C Admitted: 10/01/24 Test Reason [...] ECG Confirmed by KAYLA KINNEY, LUIS FERNANDO ([id number]), managing editor MARCUS VARELA ([id number]) on 10/02/2024 1:40:49 PM Referred By: Confirmed By: LUIS FERNANDO GARZA MD 10/02/24 1340 Date Luis Fernanod Garza MD CC: Dr. Renzo Ward MD; Dr. Dedrick Mckeon MD; Dr. Waqas Palma MD Signed Normal [facility] Absolute lymphocyte countOrd ered By: Renzo Ward on 10-01-2024 Lymphocytes Auto (Unsp spec) [#/Vol] 0.76 10*3/uL Low 0.83-4.51 [facility] Absolute neutrophil countOrd ered By: Renzo Ward on 10-01-2024 Neutrophils (Bld) [#/Vol] 7.4 10*3/uL 2.0-7.7 [facility] Anion gap in Serum or Plasma Ordered By: Renzo Ward on 10-01-2024 Anion gap [Moles/Vol] 14 mmol/L 5-15 [facility] Automated blood erythrocyte countOrdered By: Renzo Ward on 10-01-2024 RBC (Bld) [#/Vol] 3.72 10*6/uL Low 4.2-5.4 [facility] Comment on above: Performed By: #### L 503.7505, L500.2500, L100.0100 #### [facility] Laboratory [address] [place], [address] Automated blood hematocrit ( percentage)Ordered By: Renzo Ward on 10-01-2024 Hematocrit (Bld) [Volume fraction] 34.1 % Low 37-47 [facility] Comment on above: Performed By: #### L 503.7505, L500.2500, L100.0100 #### [facility] Laboratory [address] [place], [address] Automated lymphocyte count a s percentage of total leukocytesOrdered By: Renzo Ward on 10-01-2024 Lymphocytes/100 WBC Auto (Unsp spec) 8.3 % Low 19-41 [facility] BUN/creatinine ratioOrdered By: Renzo Ward on 10-01-2024 Urea nitrogen/Creatinine [Mass ratio] 22.9 mg/mg High 10-20 [facility] Basic Metabolic Profile (BMP )on 10-01-2024 BUN/CRE 22.9 RATIO High 10-20 [facility] Comment on above: Performed By: #### L 503.7505, L500.2500, L100.0100 #### [facility] Laboratory [address] [place], [address] ECRCL 28.48 ml/min Low 50-250 [facility] Comment on above: Performed By: #### L 503.7505, L500.2500, L100.0100 #### [facility] Laboratory [address] [place], [address] GAP 14 Normal -15 [facility] Comment on above: Performed By: #### L 503.7505, L500.2500, L100.0100 #### [facility] Laboratory [address] [place], [address] Potassium [Moles/Vol] 4.1 mmol/L Normal 3.3-5.1 [facility] Comment on above: Performed By: #### L 503.7505, L500.2500, L100.0100 #### [facility] Laboratory [address] [place], [address] Basophil percentageOrdered B y: Renzo Ward on 10-01-2024 Basophils/100 WBC (Bld) 0.7 % Normal 0-1 [facility] Comment on above: Performed By: #### L 503.7505, L500.2500, L100.0100 #### [facility] Laboratory [address] [place], [address] Bilirubin Test strip Ql (U)O rdered By: Renzo Recioleonardo on 10-01-2024 Bilirubin Ql (U) Negative Negative [facility] CBC W/Diff, Automatedon 07-0 Absolute Lymph 0.76 X10 3/uL Low 0.83-4.51 [facility] Comment on above: Performed By: #### L 503.7505, L500.2500, L100.0100 #### [facility] Laboratory [address] [place], [address] Absolute Neut 7.4 X10 3/uL Normal 2.0-7.7 [facility] Comment on above: Performed By: #### L 503.7505, L500.2500, L100.0100 #### [facility] Laboratory [address] [place], [address] IG% 0.500 Normal 0.0-0.9 [facility] Comment on above: Result Comment: IG% - Immature Granulocytes (promyelocytes, myelocytes and metamyelocytes) > 1% indicates that a LEFT SHIFT is Present. Performed By: #### L 503.7505, L500.2500, L100.0100 #### [facility] Laboratory [address] [place], [address] Lymphocytes/100 WBC (Bld) 8.3 % Low 19-41 [facility] Comment on above: Performed By: #### L 503.7505, L500.2500, L100.0100 #### [facility] Laboratory [address] [place], [address] Nucleated RBC (Bld) [#/Vol] 0 10*3/uL Normal 0-5 [facility] Comment on above: Performed By: #### L 503.7505, L500.2500, L100.0100 #### [facility] Laboratory [address] [place], [address] RDW SD 51.1 fl High 35.1-43.9 [facility] Comment on above: Performed By: #### L 503.7505, L500.2500, L100.0100 #### [facility] Laboratory [address] [place], [address] Carbon dioxide, total [Moles /volume] in Central venous bloodOrdered By: Renzo Ward on 10-01-2024 CO2 [Moles/Vol] 20.6 mmol/L Low 21.0-32.0 [facility] Comment on above: Performed By: #### L 503.7505, L500.2500, L100.0100 #### [facility] Laboratory [address] [place], [address] Chest 1 View (Portable)on Chest 1 View (Portable) [facility] Imaging Services [address] [place] [address] Chest 1 View (Portable) MR#: [id number] Acct: [id number] Name: NESTOR MONTES DE OCA I Rep #: [id number] : 1935 F 89 From: Shane Chiu MD PCP: Dr. Waqas Palma MD Status: REG ER Study: Chest 1 View (Portable) Date of Exam: 10/01/24 Exam# [id number] Ordering Dr: Renzo Ward MD PROCEDURE: CHEST [...] Follow-up recommended to ensure resolution Reading Location: [id number] CC: Dr. Renzo Ward MD; Dr. Waqas Palma MD Reservation Agent: Signed Normal [facility] Chloride assayOrdered By: Mike Ward on 10-01-2024 Chloride [Moles/Vol] 100 mmol/L Normal 98-108 [facility] Comment on above: Performed By: #### L 503.7505, L500.2500, L100.0100 #### [facility] Laboratory [address] [place], [address] Echo Completeon 10-01-2024 Echo Complete [facility] Cardiovascular Services [address] [facility] [place] [address] Echo Complete 10/02/24 0615 MR#: [id number] Acct: [id number] Name: NESTOR MONTES DE OCA I Rep #: [id number] : 1935 89 From: Maame Damon MD [...] Ordering Physician: Dedrick Mckeon Referring Physician: Waqas Palma Performed By: Earline Cosme, RDCS 10/02/24 1200 Date Maame Damon MD CC: Dr. Dedrick Mckeon MD; Dr. Waqas Pamla MD Date Dictated: 10/02/24 0615 Date Transcribed: 10/02/24 1200 Reservation Agent: Signed Normal [facility] Emergency Department Summary on 10-01-2024 Emergency Department Summary [facility] Medical Records Department [address] [place] [address] Emergency Department Summary 10/01/24 MR#: [id number] Acct: [id number] Name: NESTOR MONTES DE OCA I Rep #: [id number] : 1935 89 From: Renzo Ward MD PCP: Dr. Waqas Palma MD Status:REG ER Location: ED HPI History [...] problems with her heart so she states. [facility] Medical History Wears hearing aid Wears glasses [...] mg tablet 5 mg PO DAILY BLADDER 03/05/2006/22 History denosumab 60 mg/mL subcutaneous 60 mg subcut [id number] 09/20/22 Unk nown History syringe (Prolia) premier [...] Respiratory Effort (more content not included)... Normal [facility] Eosinophil percentageOrdered By: Renzo Wadr on 10-01-2024 Eosinophils/100 WBC (Bld) 1.1 % Normal 0-5 [facility] Comment on above: Performed By: #### L 503.7505, L500.2500, L100.0100 #### [facility] Laboratory [address] [place], [place], [address] Erythrocyte distribution wid th ratioOrdered By: Renzo Ward on 10-01-2024 Erythrocyte distribution width (RBC) [Ratio] 15.5 % High 11.6-14.6 [facility] Comment on above: Performed By: #### L 503.7505, L500.2500, L100.0100 #### [facility] Laboratory [address] [place], [place], [address] Erythrocyte distribution wid th standard deviationOrdered By: Renzo Ward on 10-01-2024 Erythrocyte distribution width (RBC) [Ratio] 51.1 fl High 35.1-43.9 [facility] Glomerular filtration rate ( GFR) estimation/1.73 sq m using serum, plasma, or whole bOrdered By: Renzo Ward on 10-01-2024 GFR/1.73 sq M.predicted among non-blacks MDRD (S/P/Bld) [Vol rate/Area] 42 mL/min/{1.73_m2} Low >60 [facility] Comment on above: mL/min/1.73m2 CKD-EP I Creatinine Equation (2020) Result Comment: mL/m in/1.73m2 CKD-EPI Creatinine Equation (2020) Performed By: #### L 503.7505, L500.2500, L100.0100 #### [facility] Laboratory [address] [facility] [place], [address] H AND P Exam - Hospitaliston 10-01-2024 H&P Exam - Hospitalist [facility] Medical Records Department [address] [place] [address] H P Exam - Hospitalist 10/01/24 1245 MR#: [id number] Acct: [id number] Name: NESTOR MONTES DE OCA I Rep #: [id number] : 1935 89 From: Dedrick Mckeon MD PCP: Dr. Waqas Palma MD Status:ADM IN Location: [address] HPI - General General Date of Admission: [...] Admitted to monitored bed for further management [facility] Medical History Wears hearing aid Wears glasses [...] denosumab 60 mg/mL subcutaneous 60 mg subcut [id number] 09/20/22 Unk nown History syringe (Prolia) premier [...] tingling MANI (more content not included)... Normal [facility] Hemoglobin measurementOrdere d By: Renzo Ward on 10-01-2024 Hemoglobin (Bld) [Mass/Vol] 10.9 g/dL Low 12.0-15.0 [facility] Comment on above: Performed By: #### L 503.4952, L500.2500, L100.0100 #### [facility] Laboratory [address] [place], [address] Immature granulocytes/100 WB C Auto (Bld)Ordered By: Renzo Ward on 10-01-2024 Immature granulocytes/100 WBC (Bld) 0.500 % 0.0-0.9 [facility] Comment on above: IG% - Immature Granu locytes (promyelocytes, myelocytes and metamyelocytes) > 1% indicates that a LEFT SHIFT is Present. Ketones Test strip Ql (U)Ord ered By: Renzo Ward on 10-01-2024 Ketones Ql (U) Negative Negative [facility] L503.7505on 10-01-2024 Natriuretic peptide B (Bld) [Mass/Vol] 3284 pg/mL High <=1800 [facility] Comment on above: Result Comment: Hear t Failure Unlikely: < 300 pg/mL Heart Failure Likely < 50 Years: > 450 pg/mL 50-75 Years: > 900 pg/mL >75 Years: > 1800 pg/mL Performed By: #### L 503.7505, L500.2500, L100.0100 #### [facility] Laboratory [address] [place], [address] MCV (mean corpuscular volume ) determinationOrdered By: Renzo Ward on 10-01-2024 MCV (RBC) [Entitic vol] 91.7 fL Normal 81-99 [facility] Comment on above: Performed By: #### L 503.7505, L500.2500, L100.0100 #### [facility] Laboratory [address] [place], [address] Mean corpuscular hemoglobin (MCH) determinationOrdered By: Renzo Ward on 10-01-2024 MCH (RBC) [Entitic mass] 29.3 pg Normal 27.0-32.0 [facility] Comment on above: Performed By: #### L 503.7505, L500.2500, L100.0100 #### [facility] Laboratory [address] [facility] [place], [address] Mean corpuscular hemoglobin concentration (MCHC) determinationOrdered By: Renzo Ward on 10-01-2024 MCHC (RBC) [Mass/Vol] 32.0 g/dL Normal 32-36 [facility] Comment on above: Performed By: #### L 503.7505, L500.2500, L100.0100 #### [facility] Laboratory [address] [place], [place], [address] Mean platelet volume determi nationOrdered By: Renzo Ward on 10-01-2024 Platelet mean volume (Bld) [Entitic vol] 11.0 fL Normal 6.2-12.0 [facility] Comment on above: Performed By: #### L 503.7505, L500.2500, L100.0100 #### [facility] Laboratory [address] [place], [place], [address] Microscopic analysis of urin e for red blood cells (RBC)Ordered By: Renzo Ward on 10-01-2024 Microscopic analysis of urine for red blood cells (RBC) 0 SEEN /hpf 0-5 [facility] Monocyte percentageOrdered B y: Renzo Ward on 10-01-2024 Monocytes/100 WBC (Bld) 8.5 % Normal 0-10 [facility] Comment on above: Performed By: #### L 503.7505, L500.2500, L100.0100 #### [facility] Laboratory [address] [place], [place], [address] Mucus LM Ql (Urine sed)Order ed By: Renzo Ward on 10-01-2024 Mucus Ql (Urine sed) 0 SEEN /hpf [facility] Natriuretic peptide.B prohor brenda N-Terminal [Mass/volume] in Serum or PlasmaOrdered By: Renzo Ward on 10-01-2024 Natriuretic peptide.B prohormone N-Terminal [Mass/Vol] 3284 pg/mL High <1800 [facility] Comment on above: Heart Failure Unlike ly: < 300 pg/mLHeart Failure Likely< 50 Years: > 450 pg/mL50-75 Years: > 900 pg/mL>75 Years: > 1800 pg/mL Neutrophil percentageOrdered By: Renzo Ward on 10-01-2024 Neutrophils/100 WBC (Bld) 80.9 % High 47-70 [facility] Comment on above: Performed By: #### L 503.7505, L500.2500, L100.0100 #### [facility] Laboratory [address] [place], [address] Nitrite Test strip Ql (U)Ord ered By: Renzo Ward on 10-01-2024 Nitrite Ql (U) Positive High Negative [facility] Nucleated red blood cell per centageOrdered By: Renzo Ward on 10-01-2024 Nucleated RBC/100 WBC (Bld) [Ratio] 0 % 0-5 [facility] Platelet countOrdered By: Mike Ward on 10-01-2024 Platelets (Bld) [#/Vol] 317 10*3/uL Normal 150-450 [facility] Comment on above: Performed By: #### L 503.7505, L500.2500, L100.0100 #### [facility] Laboratory [address] [place], [address] Potassium measurement (mass/ volume)Ordered By: Renzo Ward on 10-01-2024 Potassium (Unsp spec) [Mass/Vol] 4.1 mmol/L 3.3-5.1 [facility] Protein Test strip Ql (U)Ord ered By: Renzo Ward on 10-01-2024 Protein Ql (U) 30 mg/dl High Negative [facility] Serum creatinine measurement (mass/volume)Ordered By: Renzo Ward on 10-01-2024 Creatinine [Mass/Vol] 1.23 mg/dL High 0.70-1.20 [facility] Comment on above: Performed By: #### L 503.7505, L500.2500, L100.0100 #### [facility] Laboratory [address] [place], [address] Serum glucose measurement (m ass/volume)Ordered By: Renzo Ward on 10-01-2024 Glucose [Mass/Vol] 86 mg/dL Normal 70-99 [facility] Comment on above: Performed By: #### L 503.7505, L500.2500, L100.0100 #### [facility] Laboratory [address] [place], [address] Serum or plasma calcium krysten urement (mass/volume)Ordered By: Renzo Ward on 10-01-2024 Calcium [Mass/Vol] 9.3 mg/dL Normal 7.6-11.0 [facility] Comment on above: Performed By: #### L 503.7505, L500.2500, L100.0100 #### [facility] Laboratory [address] [place], [address] Serum or plasma urea nitroge n measurement (mass/volume)Ordered By: Renzo Ward on 10-01-2024 Urea nitrogen [Mass/Vol] 28 mg/dL High 4-19 [facility] Comment on above: Performed By: #### L 503.7505, L500.2500, L100.0100 #### [facility] Laboratory [address] [place], [address] Sodium levelOrdered By: Renzo Ward on 10-01-2024 Sodium [Moles/Vol] 134 mmol/L Normal 133-145 [facility] Comment on above: Performed By: #### L 503.7505, L500.2500, L100.0100 #### [facility] [address] [place], [address] Squamous epithelial cells de tection in urine sediment by light microscopyOrdered By: Renzo Ward on 10-01-2024 Epithelial cells.squamous LM Ql (Urine sed) 0 SEEN /hpf 5-10 [facility] TSH DL <= 0.005 mIU/L QnOrde red By: Dedrick Mckeon on 10-01-2024 TSH Qn 2.310 uIU/mL 0.300-4.200 [facility] Thyroid Stim Hormone (TSH)on 10-01-2024 TSH 2.310 uIU/mL Normal 0.300-4.200 [facility] Comment on above: Performed By: #### L 503.7505, L500.2500, L100.0100 #### [facility] Laboratory [address] [place], [address] Urinalysis, Completeon 10-01 BACTERIA 2+ /hpf Normal None Seen [facility] Comment on above: Order Comment: CLEAN CATCH Performed By: #### M 100.2200, L400.2010 #### [facility] Laboratory [address] [place], [address] EPI,RENAL 0-5 SEEN Normal 0-5 [facility] Comment on above: Order Comment: CLEAN CATCH Performed By: #### M 100.2200, L400.2010 #### [facility] [address] [place], [address] WBC 10-25 SEEN Normal 0-5 [facility] Comment on above: Order Comment: CLEAN CATCH Performed By: #### M 100.2200, L400.2010 #### [facility] [address] [place], [address] EPI,SQUAMOUS 0 SEEN Normal 5-10 [facility] Comment on above: Order Comment: CLEAN CATCH Performed By: #### M 100.2200, L400.2010 #### [facility] [address] [place], [address] Mucus Ql (Urine sed) 0 SEEN Normal [facility] Comment on above: Order Comment: CLEAN CATCH Performed By: #### M 100.2200, L400.2010 #### [facility] [address] [place], [address] RBC 0 SEEN Normal 0-5 [facility] Comment on above: Order Comment: CLEAN CATCH Performed By: #### M 100.2200, L400.2010 #### [facility] Laboratory [address] [place], [address] Urine clarityOrdered By: Maryuri Ward on 10-01-2024 Clarity (U) Sl. Cloudy Clear [facility] Urine color determinationOrd ered By: Renzo Ward on 10-01-2024 Color (U) Yellow Yellow [facility] Urine cultureOrdered By: Mark Mckeon on 10-01-2024 Bacteria identified Cx Nom (U) Citrobacter youngae Abnormal [facility] Urine glucose detectionOrder ed By: Renzo Ward on 10-01-2024 Glucose Ql (U) Normal mg/dl Normal [facility] Urine leukocyte esterase det ection by dipstickOrdered By: Renzo Ward on 10-01-2024 Leukocyte esterase Test strip Ql (U) 500 /ul High Negative [facility] Urine pHOrdered By: Renzo sebastian on 10-01-2024 pH (U) 6.0 [pH] 5.0 - 8.0 [facility] Urine sediment bacteria coun t by microscopy (number/high power field)Ordered By: Renzo Ward on 10-01-2024 Bacteria LM.HPF (Urine sed) [#/Area] 2 /[HPF] None Seen [facility] Urine sediment renal epithel ial cell count by microscopy (number/high power field)Ordered By: Renzo Ward on 10-01-2024 Epithelial cells.renal LM.HPF (Urine sed) [#/Area] 0 /[HPF] 0-5 [facility] Urine specific gravity measu rementOrdered By: Renzo Ward on 10-01-2024 Specific gravity (U) [Rel density] 1.015 1.002-1.030 [facility] Urine urobilinogen measureme ntOrdered By: Renzo Ward on 10-01-2024 Urobilinogen Ql (U) Normal mg/dl Normal [facility] Venous Duplex US - Tj Extre mon 10-01-2024 Venous Duplex US - Tj Extrem [facility] Cardiovascular Services [address] [place] [address] Venous Duplex US - Tj Extrem 10/01/24 1108 MR#: [id number] Acct: [id number] Name: NESTOR MONTES DE OCA I Rep #: [id number] : 1935 89 From: Bruce De Jesus [...] Ordering Physician: Renzo Ward Referring Physician: Waqas Palma Performed By: Nola Sol RVT 10/01/24 1553 Date Bruce De Jesus MD CC: Dr. Renzo Ward MD; Dr. Dedrick Mckeon MD; Dr. Waqas Palma MD Date Dictated: 10/01/24 1108 Date Transcribed: 10/01/24 1553 Reservation Agent: Signed Normal [facility] Venous duplex ultrasound rep ortOrdered By: Bruce De Jesus on 10-01-[address] [facility] Cardiovascular Services [address] [place] [address] Venous Duplex US - Tj Extrem 10/01/24 1108 MR#: [id number] Acct: [id number] Name: NESTOR MONTES DE OCA I Rep #:[id number] : 1935 89 From: Bruce Noriega Attending Dr: Dr. Dedrick Mckeon MD Status: ADM IN Ordering Dr: Renzo Ward MD Date: Location: [facility] Sex: F C Admitted: 10/01/24 Reason For [...] Ordering Physician: Renzo Ward Referring Physician: Waqas Palma Performed By: Nola Sol Coby 10/01/24 1553 Date _ Bruce De Jesus MD CC: Dr. Renzo Ward MD; Dr. Dedrick Mckeon MD; Dr. Waqas Palma MD ~ Date Dictated: 10/01/24 1108 Date Transcribed: 10/01/24 155 Reservation Agent: Signed [facility] Work Phone: White blood cell (WBC) count Ordered By: Renzo Ward on 10-01-2024 WBC (Bld) [#/Vol] 9.1 10*3/uL Normal 4.4-11.0 [facility] Comment on above: Performed By: #### L 503.7505, L500.2500, L100.0100 #### [facility] Laboratory [address] [facility] [place], [address] White blood cell countOrdere d By: Renzo Ward on 10-01-2024 White blood cell count 10-25 SEEN /hpf 0-5 [facility] Surgery Visit Reporton 08-01 Surgery Visit Report [facility] [address] [place], [place] [id number] OFFICE VISIT Date of Service: 08/01/24 MR#: [id number] Acct: [id number] Name: NESTOR MONTES DE OCA I Rep #: [id number] : 1935 Provider: Dr. Zahida scott MD Age/Sex: 89/F Location: [facility] Status: Signed Intake Vital Signs 07/22/24 [...] (Intermediate, Verified 08/01/24 09:02) Dizziness trimethoprim (From ) Allergy (Intermediate, Verified 08/01/24 09:02) Dizziness Penicillins [...] denosumab 60 mg/mL subcutaneous 60 mg subcut [id number] 09/20/2204/27 History syringe (Prolia) premier protein 30 [...] or v (more content not included)... Normal [facility] CA 15-3on 07-24-2024 CA 15-3 30.8 U/mL Abnormal 0.0-25.0 [facility] Comment on above: Result Comment: [employer] Electrochemiluminescence Immunoassay (ECLIA) Values obtained with different assay methods or kits cannot be used interchangeably. Results cannot be interpreted as absolute evidence of the presence or absence of malignant disease. Performed at: [address] [id number] [employer] Coordinator: Edy Lovett PhD, Phone: [phone] Performed By: #### M 100.2200, L400.2010 #### [facility] Laboratory [address] [facility] [place], [place], [id number] CA 27.29on 07-24-2024 CA 27.29 30.9 U/mL Normal 0.0-38.6 [facility] Comment on above: Result Comment: [employer] Immunochemiluminometric Methodology (ICMA) Values obtained with different assay methods or kits cannot be used interchangeably. Results cannot be interpreted as absolute evidence of the presence or absence of malignant disease. Performed By: #### M 100.2200, L400.2010 #### [facility] Laboratory [address] [facility]. [place], [place], [id number] Absolute lymphocyte countOrd ered By: Alonzo John on 07-22-2024 Lymphocytes Auto (Unsp spec) [#/Vol] 1.44 10*3/uL 0.83-4.51 [facility] Absolute neutrophil countOrd ered By: Alonzo John on 07-22-2024 Neutrophils (Bld) [#/Vol] 6.0 10*3/uL 2.0-7.7 [facility] Anion gap in Serum or Plasma Ordered By: Alonzo John on 07-22-2024 Anion gap [Moles/Vol] 11 mmol/L 5-15 [facility] Automated lymphocyte count a s percentage of total leukocytesOrdered By: Alonzo John on 07-22-2024 Lymphocytes/100 WBC Auto (Unsp spec) 17.0 % Low 19-41 [facility] BUN/creatinine ratioOrdered By: Alonzo John on 07-22-2024 Urea nitrogen/Creatinine [Mass ratio] 27.6 mg/mg High 10-20 [facility] Basophil percentageOrdered B y: Alonzo John on 07-22-2024 Basophils/100 WBC (Bld) 0.6 % 0-1 [facility] Bilirubin, totalOrdered By: Alonzo John on 07-22-2024 Bilirubin [Mass/Vol] 0.23 mg/dL 0.00-1.30 [facility] CA 15-3Ordered By: Alonzo garcia on 07-22-2024 CA 15-3 30.8 U/mL High 0.0-25.0 [facility] Comment on above: [employer] El ectrochemiluminescence Immunoassay(ECLIA)Values obtained with different assay methods or kits cannotbe used interchangeably. Results cannot be interpreted asabsolute evidence of the presence or absence of malignantdisease.Performed at: [facility] [place] [id number] Director: Edy Lovett PhD, Phone: [phone] CA 27.29Ordered By: Alonzo pace on 07-22-2024 CA 27.29 30.9 U/mL 0.0-38.6 [facility] Comment on above: [employer] Centaur Immu nochemiluminometric Methodology (ICMA)Values obtained with different assay methods or kits cannotbe used interchangeably. Results cannot be interpreted asabsolute evidence of the presence or absence of malignantdisease. CBC W/Diff, Automatedon 07-03 Absolute Lymph 1.44 X10 3/uL Normal 0.83-4.51 [facility] Comment on above: Performed By: #### M 100.2200, L400.2010 #### [facility] [address] [place], [address] Absolute Neut 6.0 X10 3/uL Normal 2.0-7.7 [facility] Comment on above: Performed By: #### M .2199, #### [facility] [address] [place], [address] Basophils/100 WBC (Bld) 0.6 % Normal 0-1 [facility] Comment on above: Performed By: #### M 100.2199, #### [facility] [address] [place], [address] Eosinophils/100 WBC (Bld) 2.0 % Normal 0-5 [facility] Comment on above: Performed By: #### M , #### [facility] [address] [place], [address] Erythrocyte distribution width (RBC) [Ratio] 14.0 % Normal 11.6-14.6 [facility] Comment on above: Performed By: #### M , #### [facility] [address] [place], [address] Hematocrit (Bld) [Volume fraction] 36.6 % Low 37-47 [facility] Comment on above: Performed By: #### M , #### [facility] [address] [place], [address] Hemoglobin (Bld) [Mass/Vol] 11.9 g/dL Low 12.0-15.0 [facility] Comment on above: Performed By: #### M , #### [facility] [address] [place], [address] IG% 0.500 Normal 0.0-0.9 [facility] Comment on above: Result Comment: IG% - Immature Granulocytes (promyelocytes, myelocytes and metamyelocytes) > 1% indicates that a LEFT SHIFT is Present. Performed By: #### M , #### [facility] [address] [place], [address] Lymphocytes/100 WBC (Bld) 17.0 % Low 19-41 [facility] Comment on above: Performed By: #### M , #### [facility] [address] [place], [address] MCH (RBC) [Entitic mass] 29.1 pg Normal 27.0-32.0 [facility] Comment on above: Performed By: #### M , #### [facility] [address] [place], [address] MCHC (RBC) [Mass/Vol] 32.5 g/dL Normal 32-36 [facility] Comment on above: Performed By: #### M , #### [facility] [address] [place], [address] MCV (RBC) [Entitic vol] 89.5 fL Normal 81-99 [facility] Comment on above: Performed By: #### M , #### [facility] [address] [place], [address] Monocytes/100 WBC (Bld) 9.6 % Normal 0-10 [facility] Comment on above: Performed By: #### M , #### [facility] [address] [place], [address] Neutrophils/100 WBC (Bld) 70.3 % High 47-70 [facility] Comment on above: Performed By: #### M , #### [facility] [address] [place], [address] Nucleated RBC (Bld) [#/Vol] 0 10*3/uL Normal 0-5 [facility] Comment on above: Performed By: #### M 100.0, L4.2010 #### [facility] [address] [place], [address] Platelet mean volume (Bld) [Entitic vol] 11.2 fL Normal 6.2-12.0 [facility] Comment on above: Performed By: #### M 100.2199, L4.2010 #### [facility] [address] [place], [address] Platelets (Bld) [#/Vol] 283 10*3/uL Normal 150-450 [facility] Comment on above: Performed By: #### M 100.2199, L4.2010 #### [facility] [address] [place], [address] RBC (Bld) [#/Vol] 4.09 10*6/uL Low 4.2-5.4 [facility] Comment on above: Performed By: #### M .2199, L4.2010 #### [facility] [address] [place], [address] RDW SD 45.7 fl High 35.1-43.9 [facility] Comment on above: Performed By: #### M 100.2199, L4.2010 #### [facility] [address] [place], [address] WBC (Bld) [#/Vol] 8.5 10*3/uL Normal 4.4-11.0 [facility] Comment on above: Performed By: #### M 100.2199, L400.2010 #### [facility] [address] [place], [address] Carbon dioxide, total [Moles /volume] in Central venous bloodOrdered By: Alonzo John on 07-22-2024 CO2 [Moles/Vol] 23.2 mmol/L 21.0-32.0 [facility] Cerv Spine 2 or 3 Viewson Cerv Spine 2 or 3 Views [facility] Services [address] [place], [place] [address] Cerv Spine 2 or 3 Views MR#: [id number] Acct: [id number] Name: NESTOR MONTES DE OCA I Rep #: [id number] : 1935 F 89 From: Bruce Evans MD PCP: Dr. Waqas Palma MD Status: REG RCR Study: Cerv Spine 2 or 3 Views Date of Exam: 07/22/24 Exam# [id number] Ordering Dr: Alonzo John MD PROCEDURE: CERV [...] CC: Dr. Alonzo John MD; Dr. Waqas Palma MD Reservation Agent: Signed Normal [facility] Chloride assayOrdered By: Negar John on 07-22-2024 Chloride [Moles/Vol] 101 mmol/L 98-108 [facility] Comprehensive Metabolic Prof ilon 07-22-2024 Albumin [Mass/Vol] 3.9 g/dL Normal 3.4-4.8 [facility] Comment on above: Performed By: #### M 100.2200, L4.2010 #### [facility] [address] [place], [place], [address] Albumin/Globulin [Mass ratio] 1.1 {ratio} Normal 0.9-2.4 [facility] Comment on above: Performed By: #### M 100.2200, L400.2010 #### [facility] [address] [place], [address] ALK PHOS 71 U/L Normal 35-104 [facility] Comment on above: Performed By: #### M , #### [facility] [address] [place], [address] ALT [Catalytic activity/Vol] 5 U/L Normal <=34 [facility] Comment on above: Performed By: #### M , #### [facility] [address] [place], [address] AST [Catalytic activity/Vol] 20 U/L Normal <=31 [facility] Comment on above: Performed By: #### M , #### [facility] [address] [place], [address] Bilirubin [Mass/Vol] 0.23 mg/dL Normal 0.00-1.30 [facility] Comment on above: Performed By: #### M , #### [facility] [address] [place], [address] BUN/CRE 27.6 RATIO High 10-20 [facility] Comment on above: Performed By: #### M , #### [facility] [address] [place], [address] Calcium [Mass/Vol] 9.6 mg/dL Normal 7.6-11.0 [facility] Comment on above: Performed By: #### M , #### [facility] [address] [place], [address] Chloride [Moles/Vol] 101 mmol/L Normal 98-108 [facility] Comment on above: Performed By: #### M 100.220 #### [facility] [address] [place], [address] CO2 [Moles/Vol] 23.2 mmol/L Normal 21.0-32.0 [facility] Comment on above: Performed By: #### M 100.2199, #### [facility] [address] [place], [address] Creatinine [Mass/Vol] 1.14 mg/dL Normal 0.70-1.20 [facility] Comment on above: Performed By: #### M , #### [facility] [address] [place], [address] ECRCL 29.30 ml/min Low 50-250 [facility] Comment on above: Performed By: #### M , #### [facility] [address] [place], [address] GAP 11 Normal 5-15 [facility] Comment on above: Performed By: #### M , #### [facility] [address] [place], [address] GFR/1.73 sq M.predicted among non-blacks MDRD (S/P/Bld) [Vol rate/Area] 46 mL/min/{1.73_m2} Low >60 [facility] Comment on above: Result Comment: mL/m in/1.73m2 CKD-EPI Creatinine Equation (2020) Performed By: #### M , #### [facility] [address] [place], [address] Globulin (S) [Mass/Vol] 3.5 g/dL Normal 2.2-4.2 [facility] Comment on above: Performed By: #### M .2199, #### [facility] [address] [place], [address] Glucose [Mass/Vol] 118 mg/dL High 70-99 [facility] Comment on above: Performed By: #### M 100.0, L400.2010 #### [facility] [address] [place], [address] Potassium [Moles/Vol] 4.8 mmol/L Normal 3.3-5.1 [facility] Comment on above: Performed By: #### M 100.220, L4.2010 #### [facility] [address] [place], [address] Sodium [Moles/Vol] 136 mmol/L Normal 133-145 [facility] Comment on above: Performed By: #### M 100.2199, L4.2010 #### [facility] [address] [place], [address] T PROT 7.4 g/dL Normal 5.9-8.4 [facility] Comment on above: Performed By: #### M 100.2199, L400.2010 #### [facility] [address] [place], [address] Urea nitrogen [Mass/Vol] 32 mg/dL High 4-19 [facility] Comment on above: Performed By: #### M 100.2199, L4.2010 #### [facility] [address] [place], [address] Eosinophil percentageOrdered By: Alonzo John on 07-22-2024 Eosinophils/100 WBC (Bld) 2.0 % 0-5 [facility] Erythrocyte distribution wid th ratioOrdered By: Alonzo John on 07-22-2024 Erythrocyte distribution width (RBC) [Ratio] 14.0 % 11.6-14.6 [facility] Erythrocyte distribution wid th standard deviationOrdered By: Alonzo John on 07-22-2024 Erythrocyte distribution width (RBC) [Ratio] 45.7 fl High 35.1-43.9 [facility] Glomerular filtration rate ( GFR) estimation/1.73 sq m using serum, plasma, or whole bOrdered By: Alonzo John on 07-22-2024 GFR/1.73 sq M.predicted among non-blacks MDRD (S/P/Bld) [Vol rate/Area] 46 mL/min/{1.73_m2} Low >60 [facility] Comment on above: mL/min/1.73m2 CKD-EP I Creatinine Equation (2020) Hematocrit Auto (Bld) [Volum e fraction]Ordered By: Alonzo John on 07-22-2024 Hematocrit (Bld) [Volume fraction] 36.6 % Low 37-47 [facility] Hemoglobin measurementOrdere d By: Alonzo John on 07-22-2024 Hemoglobin (Bld) [Mass/Vol] 11.9 g/dL Low 12.0-15.0 [facility] Immature granulocytes/100 WB C Auto (Bld)Ordered By: Alonzo John on 07-22-2024 Immature granulocytes/100 WBC (Bld) 0.500 % 0.0-0.9 [facility] Comment on above: IG% - Immature Granu locytes (promyelocytes, myelocytes and metamyelocytes) > 1% indicates that a LEFT SHIFT is Present. LDHon 07-22-2024 LDH 145 U/L Normal 84-246 [facility] Comment on above: Order Comment: 1 Performed By: #### M 100.2200, L400.2010 #### [facility] [address] [place] [address], [address] Laboratory - Chemistry and C hemistry - challengeOrdered By: Alonzo John on 07-22-2024 AST [Catalytic activity/Vol] 20 U/L <32 [facility] Lactate dehydrogenase (LDH) measurementOrdered By: Alonzo John on 07-22-2024 LDH [Catalytic activity/Vol] 145 U/L 84-246 [facility] MCV (mean corpuscular volume ) determinationOrdered By: Alonzo John on 07-22-2024 MCV (RBC) [Entitic vol] 89.5 fL 81-99 [facility] Mean corpuscular hemoglobin (MCH) determinationOrdered By: Alonzo John on 07-22-2024 MCH (RBC) [Entitic mass] 29.1 pg 27.0-32.0 [facility] Mean corpuscular hemoglobin concentration (MCHC) determinationOrdered By: Alonzo John on 07-22-2024 MCHC (RBC) [Mass/Vol] 32.5 g/dL 32-36 [facility] Mean platelet volume determi nationOrdered By: Alonzo John on 07-22-2024 Platelet mean volume (Bld) [Entitic vol] 11.2 fL 6.2-12.0 [facility] Monocyte percentageOrdered B y: Alonzo John on 07-22-2024 Monocytes/100 WBC (Bld) 9.6 % 0-10 [facility] Neutrophil percentageOrdered By: Alonzo John on 07-22-2024 Neutrophils/100 WBC (Bld) 70.3 % High 47-70 [facility] Nucleated red blood cell per centageOrdered By: Alonzo John on 07-22-2024 Nucleated RBC/100 WBC (Bld) [Ratio] 0 % 0-5 [facility] Oncology Visit Reporton 07-03 Oncology Visit Report [facility] [place] [facility] [address] [place] [address] OFFICE VISIT Date of Service: 07/22/24 1602 MR#: [id number] Acct: [id number] Name: NESTOR MONTES DE OCA I Rep #: [id number] : 1935 From: Alonzo John MD Age/Sex: 89/F Location: [facility] Status: Signed HPI Subjective Date of Service [...] and armpit which is stable. Feels well. [facility] Medical History Wears hearing aid Wears glasses [...] Allergies sulfamethoxazole (From ) Allergy (Intermediate, Verified 07/22/24 16:09) Dizziness trimethoprim (From Decra) Allergy (Intermediate, Verified 07/22/24 16:09) Dizziness Penicillins [...] denosumab 60 mg/mL subcutaneous 60 mg subcut [id number] 09/20/22 History syringe (Prolia) premier protein 30 [...] the pas (more content not included)... Normal [facility] Platelet countOrdered By: Negar John on 07-22-2024 Platelets (Bld) [#/Vol] 283 10*3/uL 150-450 [facility] Potassium measurement (mass/ volume)Ordered By: Alonzo John on 07-22-2024 Potassium (Unsp spec) [Mass/Vol] 4.8 mmol/L 3.3-5.1 [facility] RBC Auto (Bld) [#/Vol]Ordere d By: Alonzo John on 07-22-2024 RBC (Bld) [#/Vol] 4.09 10*6/uL Low 4.2-5.4 [facility] Serum creatinine measurement (mass/volume)Ordered By: Alonzo John on 07-22-2024 Creatinine [Mass/Vol] 1.14 mg/dL 0.70-1.20 [facility] Serum globulin measurementOr dered By: Alonzo John on 07-22-2024 Globulin (S) [Mass/Vol] 3.5 g/dL 2.2-4.2 [facility] Serum glucose measurement (m ass/volume)Ordered By: Alonzo John on 07-22-2024 Glucose [Mass/Vol] 118 mg/dL High 70-99 [facility] Serum or plasma alanine salazar otransferase (ALT) measurementOrdered By: Alonzo John on 07-22-2024 ALT [Catalytic activity/Vol] 5 U/L <35 [facility] Serum or plasma albumin krysten urement (mass/volume)Ordered By: Alonzo John on 07-22-2024 Albumin [Mass/Vol] 3.9 g/dL 3.4-4.8 [facility] Serum or plasma albumin/glob ulin mass ratioOrdered By: Alonzo John on 07-22-2024 Albumin/Globulin [Mass ratio] 1.1 {ratio} 0.9-2.4 [facility] Serum or plasma alkaline ewelina sphatase measurementOrdered By: Alonzo John on 07-22-2024 ALP [Catalytic activity/Vol] 71 U/L 35-104 [facility] Serum or plasma calcium krysten urement (mass/volume)Ordered By: Alonzo John on 07-22-2024 Calcium [Mass/Vol] 9.6 mg/dL 7.6-11.0 [facility] Serum or plasma urea nitroge n measurement (mass/volume)Ordered By: Alonzo John on 07-22-2024 Urea nitrogen [Mass/Vol] 32 mg/dL High 4-19 [facility] Sodium levelOrdered By: Niels John on 07-22-2024 Sodium [Moles/Vol] 136 mmol/L 133-145 [facility] Total proteinOrdered By: Les John on 07-22-2024 Protein [Mass/Vol] 7.4 g/dL 5.9-8.4 [facility] White blood cell (WBC) count Ordered By: Alonzo John on 07-22-2024 WBC (Bld) [#/Vol] 8.5 10*3/uL 4.4-11.0 [facility] Urine Cultureon 07-17-2024 URC Presumptive E. coli [place] Count >100,000 Presumptive E. coli: REACTION Ampicillin [...] TMP SMX Islt CARLOS <=20 S Normal [facility] Comment on above: Performed By: #### M 100.2200, L400.2010 #### [facility] [address] [place] [address], [address] Bilirubin Test strip Ql (U)O rdered By: Waqas Palma on 07-15-2024 Bilirubin Ql (U) Negative Negative [facility] Glucose Ql (U)Ordered By: Chandra Palma on 07-15-2024 Urine Glucose (UA) Normal mg/dl Normal [facility] Ketones Test strip Ql (U)Ord ered By: Waqas Palma on 07-15-2024 Ketones Ql (U) Negative Negative [facility] Nitrite Test strip Ql (U)Ord ered By: Waqas Palma on 04-14-2025 Nitrite Ql (U) Positive High Negative [facility] Protein Test strip Ql (U)Ord ered By: Waqas Palma on 07-15-2024 Protein Ql (U) 15 mg/dl High Negative [facility] Urinalysis, Routine (Dipstic k)on 07-15-2024 BILIRUBIN URINE Negative Normal Negative [facility] Comment on above: Order Comment: CLEAN CATCH Performed By: #### M 100, L4.2010 #### [facility] [address] [place], [address] Clarity (U) Sl. Cloudy Normal Clear [facility] Comment on above: Order Comment: CLEAN CATCH Performed By: #### M , L4 #### [facility] [address] [place], [address] Color (U) Yellow Normal Yellow [facility] Comment on above: Order Comment: CLEAN CATCH Performed By: #### M , L4 #### [facility] [address] [place], [address] GLUCOSE, UR Normal Normal Normal [facility] Comment on above: Order Comment: CLEAN CATCH Performed By: #### M , L4 #### [facility] [address] [place], [address] KETONE UR Negative Normal Negative [facility] Comment on above: Order Comment: CLEAN CATCH Performed By: #### M , L4 #### [facility] [address] [place], [address] LEUK ESTERASE 500 /ul Abnormal Negative [facility] Comment on above: Order Comment: CLEAN CATCH Performed By: #### M , L4 #### [facility] [address] [place], [address] Nitrite Ql (U) Positive Abnormal Negative [facility] Comment on above: Order Comment: CLEAN CATCH Performed By: #### M 100.2200, L400.2010 #### [facility] [address] [place], [address] OCCULT BLOOD-UR Negative Normal Negative [facility] Comment on above: Order Comment: CLEAN CATCH Performed By: #### M 100.2199, L400.2010 #### [facility] [address] [place], [address] pH UR 5.0 Normal 5.0 - 8.0 [facility] Comment on above: Order Comment: CLEAN CATCH Performed By: #### M 100.2199, L400.2010 #### [facility] [address] [place], [address] PROT DIPSTX 15 mg/dl Abnormal Negative [facility] Comment on above: Order Comment: CLEAN CATCH Performed By: #### M 100, L4.2010 #### [facility] [address] [place], [address] SP.GR. DIPSTX 1.020 Normal 1.002-1.030 [facility] Comment on above: Order Comment: CLEAN CATCH Performed By: #### M 100, L4.2010 #### [facility] [address] [place], [address] UROBILI Normal Normal Normal [facility] Comment on above: Order Comment: CLEAN CATCH Performed By: #### M , L4 #### [facility] [address] [place], [address] Urine blood detectionOrdered By: Waqas Palma on 07-15-2024 Urine Occult Blood Negative Negative [facility] Urine clarityOrdered By: Marilin Palma on 07-15-2024 Clarity (U) Sl. Cloudy Clear [facility] Urine color determinationOrd ered By: Waqas Palma on 07-15-2024 Color (U) Yellow Yellow [facility] Urine cultureOrdered By: Marilin Palma on 07-15-2024 Bacteria identified Cx Nom (U) Presumptive E. coli Abnormal [facility] Urine glucose detectionOrder ed By: Waqas Palma on 07-15-2024 Glucose Ql (U) Normal mg/dl Normal [facility] Urine leukocyte esterase det ection by dipstickOrdered By: Waqas Palma on 07-15-2024 Leukocyte esterase Test strip Ql (U) 500 /ul High Negative [facility] Urine pHOrdered By: Waqas Titus lsen on 07-15-2024 pH (U) 5.0 [pH] 5.0 - 8.0 [facility] Urine specific gravity measu rementOrdered By: Waqas Palma on 07-15-2024 Specific gravity (U) [Rel density] 1.020 1.002-1.030 [facility] Urine urobilinogen measureme ntOrdered By: Waqas Palma on 07-15-2024 Urobilinogen Ql (U) Normal mg/dl Normal [facility] Urobilinogen Ql (U)Ordered B y: Waqas Palma on 07-15-2024 Urine Urobilinogen Normal mg/dl Normal [facility] Radiation Oncology Visiton 0 04-15-2024 Radiation Oncology Visit [facility] [address] [place] [address] OFFICE VISIT Date of Service: 04/15/24931 MR#: [id number] Acct: [id number] Name: NESTOR MONTES DE OCA I Rep #: [id number] : 1935 From: Robinson Yepez DO Age/Sex: 89/F Location: [facility] Status: Signed Intake Vital Signs 10/03/23 08:54 [...] denosumab 60 mg/mL subcutaneous 60 mg subcut [id number] 09/20/22 04/15/24 History syringe (Prolia) anastrozole 1 [...] denosumab 60 mg/mL subcutaneous 60 mg subcut [id number] 09/20/22 Unknown History syringe (Prolia) anastrozole 1 mg tablet 1 mg PO DAILY #90 tabs 08/25/23 Unknown Rx premier protein 30 g PO .every other day 01/29/24 Unknown History hydrochlorothiazide 25 mg tablet 12.5 mg PO DAILY BP 04/15/24 Unknown History Allergy/AdvReac Type Severity Reaction Status Date / Time sulfamethoxazole (From Allergy Intermediate Dizziness Verified 04/15/24 09:39 Septra) trimethoprim (From ) Allergy Intermediate Dizziness [...] physical ac (more content not included)... Normal [facility] Bilirubin Test strip Ql (U)O rdered By: Alonzo John on 01-29-2024 Bilirubin Ql (U) Negative Negative [facility] Ketones Test strip Ql (U)Ord ered By: Alonzo John on 01-29-2024 Ketones Ql (U) Negative Negative [facility] Magnesium measurementOrdered By: Alonzo John on 01-29-2024 Magnesium [Mass/Vol] 1.9 mg/dL 1.6-2.6 [facility] Microscopic analysis of urin e for red blood cells (RBC)Ordered By: Alonzo John on 01-29-2024 Microscopic analysis of urine for red blood cells (RBC) 0 SEEN /hpf 0-5 [facility] Mucus LM Ql (Urine sed)Order ed By: Alonzo John on 01-29-2024 Mucus Ql (Urine sed) 0 SEEN /hpf [facility] Nitrite Test strip Ql (U)Ord ered By: Alonzo John on 01-29-2024 Nitrite Ql (U) Negative Negative [facility] Protein Test strip Ql (U)Ord ered By: Alonzo John on 01-29-2024 Protein Ql (U) Negative Negative [facility] Squamous epithelial cells de tection in urine sediment by light microscopyOrdered By: Alonzo John on 01-29-2024 Epithelial cells.squamous LM Ql (Urine sed) 0 SEEN /hpf 5-10 [facility] Urine clarityOrdered By: Les John on 01-29-2024 Clarity (U) Clear Clear [facility] Urine color determinationOrd ered By: Alonzo John on 01-29-2024 Color (U) Yellow Yellow [facility] Urine cultureOrdered By: Les John on 01-29-2024 Bacteria identified Cx Nom (U) Positive Abnormal [facility] Urine glucose detectionOrder ed By: Alonzo John on 01-29-2024 Glucose Ql (U) Normal mg/dl Normal [facility] Urine leukocyte esterase det ection by dipstickOrdered By: Alonzo John on 01-29-2024 Leukocyte esterase Test strip Ql (U) 25 /ul High Negative [facility] Urine pHOrdered By: Alonzo pace on 01-29-2024 pH (U) 6.0 [pH] 5.0 - 8.0 [facility] Urine sediment bacteria coun t by microscopy (number/high power field)Ordered By: Alonzo John on 01-29-2024 Bacteria LM.HPF (Urine sed) [#/Area] 0 /[HPF] None Seen [facility] Urine specific gravity measu rementOrdered By: Alonzo John on 01-29-2024 Specific gravity (U) [Rel density] 1.015 1.002-1.030 [facility] Urine urobilinogen measureme ntOrdered By: Alonzo John on 01-29-2024 Urobilinogen Ql (U) Normal mg/dl Normal [facility] White blood cell countOrdere d By: Alonzo John on 01-29-2024 White blood cell count 0-5 SEEN /hpf 0-5 [facility] Basophil percentageOrdered B y: Waqas Palma on 07-22-2023 Chloride [Moles/Vol] 99 mmol/L 98-107 [facility] Cholesterol [Mass/Vol] 188 mg/dL <200 [facility] Comment on above: <200 mg/dL Desirable 200-240 mg/dL Borderline >240 mg/dL High Risk Glucose [Mass/Vol] 81 mg/dL 74-106 [facility] Potassium [Moles/Vol] 4.1 mmol/L 3.5-5.1 [facility] Sodium [Moles/Vol] 132 mmol/L 136-145 [facility] Triglyceride [Mass/Vol] 42 mg/dL <199 [facility] Comment on above: The drugs N-Acetylcy steine and Metamizole may falsely depress this assay.Serum Triglycerides Reference Interval Normal <150 mg/dL Borderline high 150 - 199 mg/dL High 200 - 499 mg/dL Very High > or = 500 mg/dL Laboratory - Chemistry and C hemistry - challengeOrdered By: Waqas Palma on 07-22-2023 Cholesterol in HDL [Mass/Vol] 65 mg/dL >40 [facility] Comment on above: The drugs N-Acetylcy steine and Metamizole may falsely depress this assay. Reference Range HDL <40 mg/dL Low HDL Cholesterol HDL >or= 60 mg/dL High HDL Cholesterol Cholesterol in LDL [Mass/Vol] 115 mg/dL 0-130 [facility] CO2 [Moles/Vol] 27.0 mmol/L 21.0-32.0 [facility] Urea nitrogen/Creatinine [Mass ratio] 24.4 mg/mg 10-20 [facility] No Panel InformationOrdered By: Waqas Palma on 07-22-2023 Estimated GFR (MDRD) Amer 53 mL/min >60 [facility] Comment on above: GFR Calc Estimated GFR (MDRD) Non-Af Amer 44 mL/min >60 [facility] Comment on above: Non- GFR Calc VLDL Cholesterol 8 mg/dL 5-40 [facility] Serum or plasma calcium krysten urement (mass/volume)Ordered By: Waqas Palma on 07-22-2023 Calcium [Mass/Vol] 9.0 mg/dL 8.5-10.1 [facility] Serum or plasma creatinine m easurement (mass/volume)Ordered By: Waqas Palma on 07-22-2023 Creatinine [Mass/Vol] 1.23 mg/dL 0.55-1.02 [facility] Comment on above: The validity of the calculated GFR & GFRAA in patients over 70 years has not been determined. Clinical correlation is essential. Serum or plasma urea nitroge n measurement (mass/volume)Ordered By: Waqas Palma on 07-22-2023 Urea nitrogen [Mass/Vol] 30 mg/dL 7-18 [facility] Thin prep Papanicolaou smear with manual screeningOrdered By: Waqas Palma on 07-22-2023 Thin prep Papanicolaou smear with manual screening 6 5-15 [facility] Absolute lymphocyte countOrd ered By: Alonzo John on 01-30-2023 Lymphocytes Auto (Unsp spec) [#/Vol] 0.92 10*3/uL 0.83-4.51 [facility] Basophil percentageOrdered B y: Alonzo John on 01-30-2023 Basophil percentage 2.9 mg/dL 2.5-4.9 [facility] Basophils/100 WBC (Bld) 0.7 % 0-1 [facility] Bilirubin [Mass/Vol] 0.30 mg/dL 0.20-1.00 [facility] Comment on above: For patients on eltr ombopag therapy, use of [place] TBIL is not recommended. Chloride [Moles/Vol] 99 mmol/L 98-107 [facility] Eosinophils/100 WBC (Bld) 1.2 % 0-5 [facility] Glucose [Mass/Vol] 96 mg/dL 74-106 [facility] LDH [Catalytic activity/Vol] 169 U/L 84-246 [facility] Neutrophils (Bld) [#/Vol] 6.3 10*3/uL 2.0-7.7 [facility] Neutrophils/100 WBC (Bld) 78.7 % 47-70 [facility] Potassium [Moles/Vol] 4.4 mmol/L 3.5-5.1 [facility] Protein [Mass/Vol] 8.1 g/dL 6.4-8.2 [facility] Sodium [Moles/Vol] 133 mmol/L 136-145 [facility] WBC (Bld) [#/Vol] 8.0 10*3/uL 4.4-11.0 [facility] Blood erythrocytes count (nu mber/volume)Ordered By: Alonzo John on 01-30-2023 RBC (Bld) [#/Vol] 4.16 10*6/uL 4.2-5.4 [facility] Blood hemoglobin measurement (mass/volume)Ordered By: Alonzo John on 01-30-2023 Hemoglobin (Bld) [Mass/Vol] 12.4 g/dL 12.0-15.0 [facility] Blood lymphocytes/100 leukoc ytesOrdered By: Alonzo John on 01-30-2023 Lymphocytes/100 WBC (Bld) 11.5 % 19-41 [facility] Blood monocytes/100 leukocyt esOrdered By: Alonzo John on 01-30-2023 Monocytes/100 WBC (Bld) 7.5 % 0-10 [facility] Blood platelet mean volumeOr dered By: Alonzo John on 01-30-2023 Platelet mean volume (Bld) [Entitic vol] 10.1 fL 6.2-12.0 [facility] Determination of erythrocyte mean corpuscular volume (MCV)Ordered By: Alonzo John on 01-30-2023 MCV (RBC) [Entitic vol] 94.0 fL 81-99 [facility] Hematocrit Auto (Bld) [Volum e fraction]Ordered By: Alonzo John on 01-30-2023 Hematocrit (Bld) [Volume fraction] 39.1 % 37-47 [facility] Laboratory - Chemistry and C hemistry - challengeOrdered By: Alonzo John on 01-30-2023 ALP [Catalytic activity/Vol] 70 U/L 45-117 [facility] ALT [Catalytic activity/Vol] 16 U/L 13-56 [facility] CO2 [Moles/Vol] 27.0 mmol/L 21.0-32.0 [facility] Globulin (S) [Mass/Vol] 4.4 g/dL 2.2-4.2 [facility] Magnesium [Mass/Vol] 1.7 mg/dL 1.6-2.6 [facility] Urea nitrogen/Creatinine [Mass ratio] 27.2 mg/mg 10-20 [facility] Laboratory - Hematology and Cell countsOrdered By: Alonzo John on 01-30-2023 Erythrocyte distribution width (RBC) [Entitic vol] 50.3 fL 35.1-43.9 [facility] Erythrocyte distribution width (RBC) [Ratio] 14.4 % 11.6-14.6 [facility] Immature granulocytes/100 WBC (Bld) 0.400 % 0.0-0.9 [facility] Comment on above: IG% - Immature Granu locytes (promyelocytes, myelocytes and metamyelocytes) > 1% indicates that a LEFT SHIFT is Present. MCH (RBC) [Entitic mass] 29.8 pg 27.0-32.0 [facility] Nucleated RBC/100 WBC (Bld) [Ratio] 0 % 0-5 [facility] MCHC Auto (RBC) [Mass/Vol]Or dered By: Alonzo John on 01-30-2023 MCHC (RBC) [Mass/Vol] 31.7 g/dL 32-36 [facility] No Panel InformationOrdered By: Alonzo John on 01-30-2023 Estimated Creatinine Clearance Calc 37.89 ml/min [facility] Estimated GFR (MDRD) Amer 58 mL/min >60 [facility] Comment on above: GFR Calc Estimated GFR (MDRD) Non-Af Amer 48 mL/min >60 [facility] Comment on above: Non- GFR Calc Vitamin D 25-Hydroxy 60.2 ng/mL [facility] Comment on above: Vitamin D 25(OH) Sta tus Range Deficiency <20 ng/mL (50nmol/L) Insufficiency 20 - 30 ng/mL (50 - 75 nmol/L) Sufficiency 30 - 100 ng/mL (75 - 250 nmol/L) Toxicity >100 ng/mL (>250 nmol/L) Platelets bldOrdered By: Les John on 01-30-2023 Platelets (Bld) [#/Vol] 285 10*3/uL 150-450 [facility] Serum or plasma albumin krysten urement (mass/volume)Ordered By: Alonzo John on 01-30-2023 Albumin [Mass/Vol] 3.7 g/dL 3.2-5.0 [facility] Serum or plasma albumin/glob ulin mass ratioOrdered By: Alonzo John on 01-30-2023 Albumin/Globulin [Mass ratio] 0.8 {ratio} 0.9-2.4 [facility] Serum or plasma calcium krysten urement (mass/volume)Ordered By: Alonzo John on 01-30-2023 Calcium [Mass/Vol] 9.2 mg/dL 8.5-10.1 [facility] Serum or plasma creatinine m easurement (mass/volume)Ordered By: Alonzo John on 01-30-2023 Creatinine [Mass/Vol] 1.14 mg/dL 0.55-1.02 [facility] Comment on above: The validity of the calculated GFR & GFRAA in patients over 70 years has not been determined. Clinical correlation is essential. Serum or plasma urea nitroge n measurement (mass/volume)Ordered By: Alonzo John on 01-30-2023 Urea nitrogen [Mass/Vol] 31 mg/dL 7-18 [facility] Thin prep Papanicolaou smear with manual screeningOrdered By: Alonzo John on 01-30-2023 Thin prep Papanicolaou smear with manual screening 17 U/L 15-37 [facility] Thin prep Papanicolaou smear with manual screening 7 5-15 [facility] Basophil percentageOrdered B y: Waqas Palma on 01-19-2023 Bilirubin [Mass/Vol] 0.40 mg/dL 0.20-1.00 [facility] Comment on above: For patients on eltr ombopag therapy, use of [place] TBIL is not recommended. Chloride [Moles/Vol] 96 mmol/L 98-107 [facility] Cholesterol [Mass/Vol] 202 mg/dL <200 [facility] Comment on above: <200 mg/dL Desirable 200-240 mg/dL Borderline >240 mg/dL High Risk Glucose [Mass/Vol] 106 mg/dL 74-106 [facility] Comment on above: Fasting Glucose resu lt from 100 to 125 mg/dL suggests IMPAIRED HOMEOSTASIS per A.D.A. criteria. Potassium [Moles/Vol] 3.8 mmol/L 3.5-5.1 [facility] Protein [Mass/Vol] 8.0 g/dL 6.4-8.2 [facility] Sodium [Moles/Vol] 129 mmol/L 136-145 [facility] Triglyceride [Mass/Vol] 73 mg/dL <199 [facility] Comment on above: The drugs N-Acetylcy steine and Metamizole may falsely depress this assay.Serum Triglycerides Reference Interval Normal <150 mg/dL Borderline high 150 - 199 mg/dL High 200 - 499 mg/dL Very High > or = 500 mg/dL Laboratory - Chemistry and C hemistry - challengeOrdered By: Waqas Palma on 01-19-2023 ALP [Catalytic activity/Vol] 61 U/L 45-117 [facility] ALT [Catalytic activity/Vol] 16 U/L 13-56 [facility] CO2 [Moles/Vol] 25.0 mmol/L 21.0-32.0 [facility] Globulin (S) [Mass/Vol] 4.4 g/dL 2.2-4.2 [facility] Urea nitrogen/Creatinine [Mass ratio] 27.1 mg/mg 10-20 [facility] No Panel InformationOrdered By: Waqas Palma on 01-19-2023 Estimated GFR (MDRD) Amer 62 mL/min >60 [facility] Comment on above: GFR Calc Estimated GFR (MDRD) Non-Af Amer 52 mL/min >60 [facility] Comment on above: Non- GFR Calc Serum or plasma albumin krysten urement (mass/volume)Ordered By: Waqas Palma on 01-19-2023 Albumin [Mass/Vol] 3.6 g/dL 3.2-5.0 [facility] Serum or plasma albumin/glob ulin mass ratioOrdered By: Waqas Palma on 01-19-2023 Albumin/Globulin [Mass ratio] 0.8 {ratio} 0.9-2.4 [facility] Serum or plasma calcium krysten urement (mass/volume)Ordered By: Waqas Palma on 01-19-2023 Calcium [Mass/Vol] 9.1 mg/dL 8.5-10.1 [facility] Serum or plasma cholesterol in HDL measurement (mass/volume)Ordered By: Waqas Palma on 01-19-2023 Cholesterol in HDL [Mass/Vol] 65 mg/dL >40 [facility] Comment on above: The drugs N-Acetylcy steine and Metamizole may falsely depress this assay. Reference Range HDL <40 mg/dL Low HDL Cholesterol HDL >or= 60 mg/dL High HDL Cholesterol Serum or plasma cholesterol in VLDL measurement (mass/volume)Ordered By: Waqas Palma on 01-19-2023 Cholesterol in VLDL [Mass/Vol] 15 mg/dL 5-40 [facility] Serum or plasma creatinine m easurement (mass/volume)Ordered By: Waqas Palma on 01-19-2023 Creatinine [Mass/Vol] 1.07 mg/dL 0.55-1.02 [facility] Comment on above: The validity of the calculated GFR & GFRAA in patients over 70 years has not been determined. Clinical correlation is essential. Serum or plasma low density lipoprotein (LDL) cholesterol measurement (mass/volume)Ordered By: Waqas Palma on 01-19-2023 Cholesterol in LDL [Mass/Vol] 122 mg/dL 0-130 [facility] Serum or plasma urea nitroge n measurement (mass/volume)Ordered By: Waqas Palma on 01-19-2023 Urea nitrogen [Mass/Vol] 29 mg/dL 7-18 [facility] Thin prep Papanicolaou smear with manual screeningOrdered By: Waqas Palma on 01-19-2023 Thin prep Papanicolaou smear with manual screening 15 U/L 15-37 [facility] Thin prep Papanicolaou smear with manual screening 8 5-15 [facility] Basophil percentageOrdered B y: Robinson Yepez on 09-26-2022 Creatinine [Mass/Vol] 1.6 mg/dL 0.55-1.02 [facility] Laboratory - Chemistry and C hemistry - challengeOrdered By: Robinson Yepez on 09-26-2022 GFR/1.73 sq M.predicted among non-blacks MDRD (S/P/Bld) [Vol rate/Area] 33.0000 mL/min/{1.73_m2} >60 [facility] No Panel InformationOrdered By: Dr. Yepez on 09-20-2022 Thyroid Stimulating Hormone (TSH) 1.62 uIU/mL 0.358-3.74 [facility] Absolute lymphocyte countOrd ered By: Dr. John on 07-28-2022 Lymphocytes Auto (Unsp spec) [#/Vol] 1.10 10*3/uL 0.83-4.51 [facility] Basophil percentageOrdered B y: Dr. John on 07-28-2022 Basophil percentage 3.1 mg/dL 2.5-4.9 [facility] Basophils/100 WBC (Bld) 0.5 % 0-1 [facility] Bilirubin [Mass/Vol] 0.30 mg/dL 0.20-1.00 [facility] Comment on above: For patients on eltr ombopag therapy, use of [place] TBIL is not recommended. Chloride [Moles/Vol] 102 mmol/L 98-107 [facility] Eosinophils/100 WBC (Bld) 1.1 % 0-5 [facility] Glucose [Mass/Vol] 94 mg/dL 74-106 [facility] LDH [Catalytic activity/Vol] 130 U/L 84-246 [facility] Neutrophils (Bld) [#/Vol] 7.3 10*3/uL 2.0-7.7 [facility] Neutrophils/100 WBC (Bld) 77.7 % 47-70 [facility] Potassium [Moles/Vol] 4.1 mmol/L 3.5-5.1 [facility] Protein [Mass/Vol] 7.7 g/dL 6.4-8.2 [facility] Sodium [Moles/Vol] 134 mmol/L 136-145 [facility] WBC (Bld) [#/Vol] 9.4 10*3/uL 4.4-11.0 [facility] Basophil percentageOrdered B y: Dr. Palma on 07-28-2022 Cholesterol [Mass/Vol] 180 mg/dL <200 [facility] Comment on above: <200 mg/dL Desirable 200-240 mg/dL Borderline >240 mg/dL High Risk Triglyceride [Mass/Vol] 84 mg/dL <199 [facility] Comment on above: The drugs N-Acetylcy steine and Metamizole may falsely depress this assay.Serum Triglycerides Reference Interval Normal <150 mg/dL Borderline high 150 - 199 mg/dL High 200 - 499 mg/dL Very High > or = 500 mg/dL Blood erythrocytes count (nu mber/volume)Ordered By: Dr. John on 07-28-2022 RBC (Bld) [#/Vol] 4.08 10*6/uL 4.2-5.4 [facility] Blood hemoglobin measurement (mass/volume)Ordered By: Dr. John on 07-28-2022 Hemoglobin (Bld) [Mass/Vol] 11.8 g/dL 12.0-15.0 [facility] Blood lymphocytes/100 leukoc ytesOrdered By: Dr. John on 07-28-2022 Lymphocytes/100 WBC (Bld) 11.7 % 19-41 [facility] Blood monocytes/100 leukocyt esOrdered By: Dr. John on 07-28-2022 Monocytes/100 WBC (Bld) 8.6 % 0-10 [facility] Blood platelet mean volumeOr dered By: Dr. John on 07-28-2022 Platelet mean volume (Bld) [Entitic vol] 10.4 fL 6.2-12.0 [facility] Determination of erythrocyte mean corpuscular volume (MCV)Ordered By: Dr. John on 07-28-2022 MCV (RBC) [Entitic vol] 91.9 fL 81-99 [facility] Hematocrit Auto (Bld) [Volum e fraction]Ordered By: Dr. John on 07-28-2022 Hematocrit (Bld) [Volume fraction] 37.5 % 37-47 [facility] Laboratory - Chemistry and C hemistry - challengeOrdered By: Dr. John on 07-28-2022 ALP [Catalytic activity/Vol] 70 U/L 45-117 [facility] ALT [Catalytic activity/Vol] 13 U/L 13-56 [facility] CO2 [Moles/Vol] 27.0 mmol/L 21.0-32.0 [facility] Globulin (S) [Mass/Vol] 4.3 g/dL 2.2-4.2 [facility] Urea nitrogen/Creatinine [Mass ratio] 28.1 mg/mg 10-20 [facility] Laboratory - Hematology and Cell countsOrdered By: Dr. John on 07-28-2022 Erythrocyte distribution width (RBC) [Entitic vol] 47.8 fL 35.1-43.9 [facility] Erythrocyte distribution width (RBC) [Ratio] 14.1 % 11.6-14.6 [facility] Immature granulocytes/100 WBC (Bld) 0.400 % 0.0-0.9 [facility] Comment on above: IG% - Immature Granu locytes (promyelocytes, myelocytes and metamyelocytes) > 1% indicates that a LEFT SHIFT is Present. MCH (RBC) [Entitic mass] 28.9 pg 27.0-32.0 [facility] Nucleated RBC/100 WBC (Bld) [Ratio] 0 % 0-5 [facility] MCHC Auto (RBC) [Mass/Vol]Or dered By: Dr. John on 07-28-2022 MCHC (RBC) [Mass/Vol] 31.5 g/dL 32-36 [facility] No Panel InformationOrdered By: Dr. John on 07-28-2022 Estimated GFR (MDRD) Amer 54 mL/min >60 [facility] Comment on above: GFR Calc Estimated GFR (MDRD) Non-Af Amer 45 mL/min >60 [facility] Comment on above: Non- GFR Calc Vitamin D 25-Hydroxy 78.5 ng/mL [facility] Comment on above: Vitamin D 25(OH) Sta tus Range Deficiency <20 ng/mL (50nmol/L) Insufficiency 20 - 30 ng/mL (50 - 75 nmol/L) Sufficiency 30 - 100 ng/mL (75 - 250 nmol/L) Toxicity >100 ng/mL (>250 nmol/L) Platelets bldOrdered By: Dr. John on 07-28-2022 Platelets (Bld) [#/Vol] 279 10*3/uL 150-450 [facility] PotassiumOrdered By: Waqas otto on 07-28-2022 Potassium [Mass/Vol] 180 mg/dL <200 [facility] Comment on above: <200 mg/dL Desirable 200-240 mg/dL Borderline >240 mg/dL High Risk Potassium [Mass/Vol] 84 mg/dL <199 [facility] Comment on above: The drugs N-Acetylcy steine and Metamizole may falsely depress this assay.Serum Triglycerides Reference Interval Normal <150 mg/dL Borderline high 150 - 199 mg/dL High 200 - 499 mg/dL Very High > or = 500 mg/dL Serum or plasma albumin krysten urement (mass/volume)Ordered By: Dr. John on 07-28-2022 Albumin [Mass/Vol] 3.4 g/dL 3.2-5.0 [facility] Serum or plasma albumin/glob ulin mass ratioOrdered By: Dr. John on 07-28-2022 Albumin/Globulin [Mass ratio] 0.8 {ratio} 0.9-2.4 [facility] Serum or plasma calcium krysten urement (mass/volume)Ordered By: Dr. John on 07-28-2022 Calcium [Mass/Vol] 9.4 mg/dL 8.5-10.1 [facility] Serum or plasma cholesterol in HDL measurement (mass/volume)Ordered By: Dr. Palma on 07-28-2022 Cholesterol in HDL [Mass/Vol] 57 mg/dL >40 [facility] Comment on above: The drugs N-Acetylcy steine and Metamizole may falsely depress this assay. Reference Range HDL <40 mg/dL Low HDL Cholesterol HDL >or= 60 mg/dL High HDL Cholesterol Serum or plasma cholesterol in VLDL measurement (mass/volume)Ordered By: Dr. Palma on 07-28-2022 Cholesterol in VLDL [Mass/Vol] 17 mg/dL 5-40 [facility] Serum or plasma creatinine m easurement (mass/volume)Ordered By: Dr. John on 07-28-2022 Creatinine [Mass/Vol] 1.21 mg/dL 0.55-1.02 [facility] Comment on above: The validity of the calculated GFR & GFRAA in patients over 70 years has not been determined. Clinical correlation is essential. Serum or plasma low density lipoprotein (LDL) cholesterol measurement (mass/volume)Ordered By: Dr. Palma on 07-28-2022 Cholesterol in LDL [Mass/Vol] 106 mg/dL 0-130 [facility] Serum or plasma urea nitroge n measurement (mass/volume)Ordered By: Dr. John on 07-28-2022 Urea nitrogen [Mass/Vol] 34 mg/dL 7-18 [facility] Thin prep Papanicolaou smear with manual screeningOrdered By: Dr. John on 07-28-2022 Thin prep Papanicolaou smear with manual screening 14 U/L 15-37 [facility] Thin prep Papanicolaou smear with manual screening 5 5-15 [facility] Absolute lymphocyte counton 01-05-2022 Lymphocytes Auto (Unsp spec) [#/Vol] 0.84 10*3/uL 0.83-4.51 [facility] Work Phone: Basophil percentageon 2021 Basophils/100 WBC (Bld) 0.1 % 0-1 [facility] Work Phone: Eosinophils/100 WBC (Bld) 0.0 % 0-5 [facility] Work Phone: Neutrophils (Bld) [#/Vol] 10.1 10*3/uL 2.0-7.7 [facility] Work Phone: Neutrophils/100 WBC (Bld) 83.3 % 47-70 [facility] Work Phone: WBC (Bld) [#/Vol] 12.1 10*3/uL 4.4-11.0 [facility] Work Phone: Blood erythrocytes count (nu mber/volume)on 01-05-2022 RBC (Bld) [#/Vol] 3.43 10*6/uL 4.2-5.4 [facility] Work Phone: Blood hemoglobin measurement (mass/volume)on 01-05-2022 Hemoglobin (Bld) [Mass/Vol] 10.2 g/dL 12.0-15.0 [facility] Work Phone: Blood lymphocytes/100 leukoc yteson 01-05-2022 Lymphocytes/100 WBC (Bld) 6.9 % 19-41 [facility] Work Phone: Blood monocytes/100 leukocyt eson 01-05-2022 Monocytes/100 WBC (Bld) 9.3 % 0-10 [facility] Work Phone: Blood platelet mean volumeon 01-05-2022 Platelet mean volume (Bld) [Entitic vol] 10.7 fL 6.2-12.0 [facility] Work Phone: Determination of erythrocyte mean corpuscular volume (MCV)on 01-05-2022 MCV (RBC) [Entitic vol] 93.3 fL 81-99 [facility] Work Phone: Hematocrit Auto (Bld) [Volum e fraction]on 01-05-2022 Hematocrit (Bld) [Volume fraction] 32.0 % 37-47 [facility] Work Phone: Laboratory - Hematology and Cell countson 01-05-2022 Erythrocyte distribution width (RBC) [Entitic vol] 48.6 fL 35.1-43.9 [facility] Work Phone: Erythrocyte distribution width (RBC) [Ratio] 14.2 % 11.6-14.6 [facility] Work Phone: Immature granulocytes/100 WBC (Bld) 0.400 % 0.0-0.9 [facility] Work Phone: Comment on above: IG% - Immature Granu locytes (promyelocytes, myelocytes and metamyelocytes) > 1% indicates that a LEFT SHIFT is Present. MCH (RBC) [Entitic mass] 29.7 pg 27.0-32.0 [facility] Work Phone: Nucleated RBC/100 WBC (Bld) [Ratio] 0 % 0-5 [facility] Work Phone: MCHC Auto (RBC) [Mass/Vol]on 01-05-2022 MCHC (RBC) [Mass/Vol] 31.9 g/dL 32-36 [facility] Work Phone: Platelets bldon 01-05-2022 Platelets (Bld) [#/Vol] 260 10*3/uL 150-450 [facility] Work Phone: Absolute lymphocyte counton 10-28-2021 Lymphocytes Auto (Unsp spec) [#/Vol] 1.23 10*3/uL 0.83-4.51 [facility] Work Phone: Basophil percentageon 2021 Basophils/100 WBC (Bld) 0.6 % 0-1 [facility] Work Phone: Bilirubin [Mass/Vol] 0.30 mg/dL 0.20-1.00 [facility] Work Phone: Comment on above: For patients on eltr ombopag therapy, use of [place] TBIL is not recommended. Chloride [Moles/Vol] 88 mmol/L 98-107 [facility] Work Phone: Eosinophils/100 WBC (Bld) 0.6 % 0-5 [facility] Work Phone: Glucose [Mass/Vol] 126 mg/dL 74-106 [facility] Work Phone: Comment on above: Fasting Glucose resu lt greater than or equal to 126 mg/dL suggests DIABETES MELLITUS per A.D.A. criteria. Neutrophils (Bld) [#/Vol] 7.2 10*3/uL 2.0-7.7 [facility] Work Phone: Neutrophils/100 WBC (Bld) 76.2 % 47-70 [facility] Work Phone: Potassium [Moles/Vol] 4.3 mmol/L 3.5-5.1 [facility] Work Phone: Protein [Mass/Vol] 7.9 g/dL 6.4-8.2 [facility] Work Phone: Sodium [Moles/Vol] 122 mmol/L 136-145 [facility] Work Phone: WBC (Bld) [#/Vol] 9.4 10*3/uL 4.4-11.0 [facility] Work Phone: Blood erythrocytes count (nu mber/volume)on 10-28-2021 RBC (Bld) [#/Vol] 4.15 10*6/uL 4.2-5.4 [facility] Work Phone: Blood hemoglobin measurement (mass/volume)on 10-28-2021 Hemoglobin (Bld) [Mass/Vol] 12.1 g/dL 12.0-15.0 [facility] Work Phone: Blood lymphocytes/100 leukoc yteson 10-28-2021 Lymphocytes/100 WBC (Bld) 13.0 % 19-41 [facility] Work Phone: Blood monocytes/100 leukocyt eson 10-28-2021 Monocytes/100 WBC (Bld) 9.2 % 0-10 [facility] Work Phone: Blood platelet mean volumeon 10-28-2021 Platelet mean volume (Bld) [Entitic vol] 10.3 fL 6.2-12.0 [facility] Work Phone: Determination of erythrocyte mean corpuscular volume (MCV)on 10-28-2021 MCV (RBC) [Entitic vol] 85.8 fL 81-99 [facility] Work Phone: Hematocrit Auto (Bld) [Volum e fraction]on 10-28-2021 Hematocrit (Bld) [Volume fraction] 35.6 % 37-47 [facility] Work Phone: Laboratory - Chemistry and C hemistry - challengeon 10-28-2021 ALP [Catalytic activity/Vol] 76 U/L 45-117 [facility] Work Phone: ALT [Catalytic activity/Vol] 17 U/L 13-56 [facility] Work Phone: CO2 [Moles/Vol] 27.0 mmol/L 21.0-32.0 [facility] Work Phone: Globulin (S) [Mass/Vol] 4.5 g/dL 2.2-4.2 [facility] Work Phone: Urea nitrogen/Creatinine [Mass ratio] 22.5 mg/mg 10-20 [facility] Work Phone: Laboratory - Hematology and Cell countson 10-28-2021 Erythrocyte distribution width (RBC) [Entitic vol] 41.2 fL 35.1-43.9 [facility] Work Phone: Erythrocyte distribution width (RBC) [Ratio] 13.2 % 11.6-14.6 [facility] Work Phone: Immature granulocytes/100 WBC (Bld) 0.400 % 0.0-0.9 [facility] Work Phone: Comment on above: IG% - Immature Granu locytes (promyelocytes, myelocytes and metamyelocytes) > 1% indicates that a LEFT SHIFT is Present. MCH (RBC) [Entitic mass] 29.2 pg 27.0-32.0 [facility] Work Phone: Nucleated RBC/100 WBC (Bld) [Ratio] 0 % 0-5 [facility] Work Phone: MCHC Auto (RBC) [Mass/Vol]on 10-28-2021 MCHC (RBC) [Mass/Vol] 34.0 g/dL 32-36 [facility] Work Phone: No Panel Informationon 10-28 Estimated GFR (MDRD) Amer 55 mL/min >60 [facility] Work Phone: Comment on above: GFR Calc Estimated GFR (MDRD) Non-Af Amer 45 mL/min >60 [facility] Work Phone: Comment on above: Non- GFR Calc Platelets bldon 10-28-2021 Platelets (Bld) [#/Vol] 300 10*3/uL 150-450 [facility] Work Phone: Serum or plasma albumin krysten urement (mass/volume)on 10-28-2021 Albumin [Mass/Vol] 3.4 g/dL 3.2-5.0 [facility] Work Phone: Serum or plasma albumin/glob ulin mass ratioon 10-28-2021 Albumin/Globulin [Mass ratio] 0.8 {ratio} 0.9-2.4 [facility] Work Phone: Serum or plasma calcium krysten urement (mass/volume)on 10-28-2021 Calcium [Mass/Vol] 9.1 mg/dL 8.5-10.1 [facility] Work Phone: Serum or plasma creatinine m easurement (mass/volume)on 10-28-2021 Creatinine [Mass/Vol] 1.20 mg/dL 0.55-1.02 [facility] Work Phone: Comment on above: The validity of the calculated GFR & GFRAA in patients over 70 years has not been determined. Clinical correlation is essential. Serum or plasma urea nitroge n measurement (mass/volume)on 10-28-2021 Urea nitrogen [Mass/Vol] 27 mg/dL 10-18 [facility] Work Phone: Thin prep Papanicolaou smear with manual screeningon 10-28-2021 Thin prep Papanicolaou smear with manual screening 17 U/L 15-37 [facility] Work Phone: Thin prep Papanicolaou smear with manual screening 7 5-15 [facility] Work Phone: Thin prep Papanicolaou smear with manual screening 134 U/L 84-246 [facility] Work Phone: Basophil percentageon 2021 Basophil percentage < 0.9 mg/dL 0.55-1.02 [facility] Work Phone: No Panel Informationon 10-18 Bedside Estimated GFR (eGFR) > 60.0000 mL/min >60 [facility] Work Phone: Culture, urineon 09-01-2021 Bacteria identified Cx Nom (U) Presumptive E. coli [facility] Work Phone: Basophil percentageon 2021 Chloride [Moles/Vol] 98 mmol/L 98-[address] [facility] [address] [facility] Work Phone: Cholesterol [Mass/Vol] 215 mg/dL <200 [facility] Work Phone: Comment on above: <200 mg/dL Desirable 200-240 mg/dL Borderline >240 mg/dL High Risk Glucose [Mass/Vol] 93 mg/dL 74-106 [facility] Work Phone: Potassium [Moles/Vol] 4.0 mmol/L 3.5-5.1 [facility] Work Phone: Sodium [Moles/Vol] 133 mmol/L 136-145 [facility] Work Phone: Triglyceride [Mass/Vol] 90 mg/dL <199 [facility] Work Phone: Comment on above: The drugs N-Acetylcy steine and Metamizole may falsely depress this assay.Serum Triglycerides Reference Interval Normal <150 mg/dL Borderline high 150 - 199 mg/dL High 200 - 499 mg/dL Very High > or = 500 mg/dL Laboratory - Chemistry and C hemistry - challengeon 08-18-2021 CO2 [Moles/Vol] 26.0 mmol/L 21.0-32.0 [facility] Work Phone: Urea nitrogen/Creatinine [Mass ratio] 24.3 mg/mg 10-20 [facility] Work Phone: No Panel Informationon 08-18 Estimated GFR (MDRD) Amer 60 mL/min >60 [facility] Work Phone: Comment on above: GFR Calc Estimated GFR (MDRD) Non-Af Amer 50 mL/min >60 [facility] Work Phone: Comment on above: Non- GFR Calc Serum or plasma calcium krysten urement (mass/volume)on 08-18-2021 Calcium [Mass/Vol] 9.4 mg/dL 8.5-10.1 [facility] Work Phone: Serum or plasma cholesterol in HDL measurement (mass/volume)on 08-18-2021 Cholesterol in HDL [Mass/Vol] 60 mg/dL >40 [facility] Work Phone: Comment on above: The drugs N-Acetylcy steine and Metamizole may falsely depress this assay. Reference Range HDL <40 mg/dL Low HDL Cholesterol HDL >or= 60 mg/dL High HDL Cholesterol Serum or plasma cholesterol in VLDL measurement (mass/volume)on 08-18-2021 Cholesterol in VLDL [Mass/Vol] 18 mg/dL 5-40 [facility] Work Phone: Serum or plasma creatinine m easurement (mass/volume)on 08-18-2021 Creatinine [Mass/Vol] 1.11 mg/dL 0.55-1.02 [facility] Work Phone: Comment on above: The validity of the calculated GFR & GFRAA in patients over 70 years has not been determined. Clinical correlation is essential. Serum or plasma low density lipoprotein (LDL) cholesterol measurement (mass/volume)on 08-18-2021 Cholesterol in LDL [Mass/Vol] 137 mg/dL 0-130 [facility] Work Phone: Serum or plasma urea nitroge n measurement (mass/volume)on 08-18-2021 Urea nitrogen [Mass/Vol] 27 mg/dL 7-18 [facility] Work Phone: Thin prep Papanicolaou smear with manual screeningon 08-18-2021 Thin prep Papanicolaou smear with manual screening 9 5-15 [facility] Work Phone: SURGICAL PATHOLOGYon 017 SURGICAL PATHOLOGY Specimen #: [id number] Physician: CARLOS CANO ___FINAL DIAGNOSIS1. Stomach, biopsy [...] submitted in cassettes C12-C14.Gross examination performed at [facility], [address] [place], [place] [id number] 12/12/2016 10:35:10 PM Patient ID #: Date of Report: 12/14/2016Date of Procedure: 12/12/2016Date of Receipt: 12/12/2016Submitted by: CAR[facility]OS [facility]um[facility] Physician(s):WAQAS PALMALocation: Diagnostic interpretation performed at [facility], [address] [place] [id number]. Normal [facility] Comment on above: Performed By: #### S ####See report for performing lab information. SURGICAL PATHOLOGYon 017 SURGICAL PATHOLOGY Specimen #: [id number] Physician: CARLOS CANO ___FINAL DIAGNOSIS1. Cecum polyp [...] submitted in one cassette.Gross examination performed at [facility], [address] [place] [id number] 11/09/2016 8:11:33 PMPatient ID #: Date of Report: 11/10/2016Date of Procedure: 11/09/2016Date of Receipt: 11/09/2016Submitted by: CARLOS Echeverriaal Physician(s):WAQAS PALMALocation: Diagnostic interpretation performed at [facility], [address],[facility] [address]. Normal [facility] Comment on above: Performed By: #### S ####See report for performing lab information. Otheron 02-16-2011 CONVERTED ELECTRONIC SIGNATURE FLORI FELDERLENO(ASCP) (Electronic signature on file) Final Signed Out: 02/16/2011 15:12 [facility] CONVERTED FINAL DIAGNOSIS Relevant History: Hysterectomy: Y Comment: Please do an HPV reflex test if ASCUS. SPECIMEN ADEQUACY SATISFACTORY FOR EVALUATION. INTERPRETATION/RESULT NEGATIVE FOR INTRAEPITHELIAL LESION OR MALIGNANCY. [facility] CONVERTED GROSS DESCRIPTION SPECIMEN: THIN PREP VAGINAL CUFF [facility] CONVERTED ORDERING PROVIDER Ordering Provider: INDER THAPA [facility] CONVERTED PAP DISCLAIMER The Pap test serves as a screening tool for early detection of cervical cancer. The Pap test does not represent a final diagnostic test for cervical cancer. Furthermore, the Pap test was not designed to screen for other malignancies (endometrial, ovarian cancer, etc....). False negatives and false positives have occurred. If clinically indicated, further patient evaluation is recommended. [facility] Otheron 11-25-2008 CONVERTED ELECTRONIC SIGNATURE BRUCE LAY M.D., PATHOLOGIST (Electronic signature on file) Final Signed Out: 11/25/2008 13:25 [facility] CONVERTED FINAL DIAGNOSIS Relevant History: SPECIMEN ADEQUACY SATISFACTORY FOR EVALUATION. GENERAL CATEGORIZATION NEGATIVE FOR INTRAEPITHELIAL LESION OR MALIGNANCY. INTERPRETATION/RESULT HYPERKERATOSIS. [facility] CONVERTED GROSS DESCRIPTION SPECIMEN: THIN PREP VAGINAL CUFF [facility] CONVERTED ORDERING PROVIDER Ordering Provider: INDER THAPA [facility] CONVERTED PAP DISCLAIMER The Pap test serves as a screening tool for early detection of cervical cancer. The Pap test does not represent a final diagnostic test for cervical cancer. Furthermore, the Pap test was not designed to screen for other malignancies (endometrial, ovarian cancer, etc....). False negatives and false positives have occurred. If clinically indicated, further patient evaluation is recommended. [facility] Culture, urine Bacteria identified Cx Nom (U) Presumptive E. coli [facility] Work Phone: Vital Signs Date Time Vital Sign Value Performing Clinician Faci lity 01-13-2025 15:43-0400 Body height 147.[address] Waqas Palma MD Work Phone: 3(763)494-243761 [place] [address] 01-13-2025 15:43-0400 Body mass index (BMI) [Ratio] 29.9 kg/m2 Dr. Waqas Palma MD Work Phone: 3(393)147-518561 [place] [address] 01-13-2025 15:43-0400 Body temperature 97.3 [degF] Dr. Waqas Palma MD Work Phone: 6(245)459-010161 [place] [address] 01-13-2025 15:43-0400 Body weight 64.[address] Waqas Palma MD Work Phone: 5(940)588-081561 [place] [address] 01-13-2025 15:43-0400 Diastolic blood pressure 80 mm[Hg] Dr. Waqas Palma MD Work Phone: 1(716)561-474761 [place] [address] 01-13-2025 15:43-0400 Heart rate 122 /min Dr. Waqas Palma MD Work Phone: 9(066)129-758261 [place] [address] 01-13-2025 15:43-0400 Respiratory rate 18 /min Dr. Waqas Palma MD Work Phone: 0(331)364-340961 [place] [address] 01-13-2025 15:43-0400 SaO2% (BldA) [Mass fraction] 100 % Dr. Waqas Palma MD Work Phone: 6(606)434-000361 [place] [address] 01-13-2025 15:43-0400 Systolic blood pressure 126 mm[Hg] Dr. Waqas Palma MD Work Phone: 3(393)835-387661 [place] [address] 10-30-2024 13:20-0400 Body height 147.[address] Waqas Palma MD Work Phone: 3(902)429-437561 [place] [address] 10-30-2024 13:20-0400 Body mass index (BMI) [Ratio] 28.8 kg/m2 Dr. Waqas Palma MD Work Phone: 2(099)880-722461 [place] [address] 10-30-2024 13:20-0400 Body weight 62.[address] Waqas Palma MD Work Phone: 4(907)623-910261 [place] [address] 10-30-2024 13:20-0400 Diastolic blood pressure 83 mm[Hg] Dr. Waqas Palma MD Work Phone: [facility] 10-30-2024 13:20-0400 Heart rate 78 /min Dr. Waqas Palma MD Work Phone: 7(636)659-960048 [place] [address] 10-30-2024 13:20-0400 Respiratory rate 18 /min Dr. Waqas Palma MD Work Phone: 0(836)299-895661 [place] [address] 10-30-2024 13:20-0400 Systolic blood pressure 138 mm[Hg] Dr. Waqas Palma MD Work Phone: 4(764)826-068148 [place] [address] 10-03-2024 14:45-0400 Body temperature 99 [degF] Dr. Waqas Palma MD Work Phone: 3(116)090-792361 [place] [address] 10-03-2024 14:45-0400 Diastolic blood pressure 54 mm[Hg] Dr. Waqas Palma MD Work Phone: 6(613)744-482661 [place] [address] 10-03-2024 14:45-0400 Heart rate 63 /min Dr. Waqas Palma MD Work Phone: 0(239)550-463848 [place] [address] 10-03-2024 14:45-0400 Respiratory rate 14 /min Dr. Waqas Palma MD Work Phone: 6(139)978-812261 [place] [address] 10-03-2024 14:45-0400 SaO2% (BldA) [Mass fraction] 97 % Dr. Waqas Palma MD Work Phone: 5(961)592-743461 [place] [address] 10-03-2024 14:45-0400 Systolic blood pressure 106 mm[Hg] Dr. Waqas Palma MD Work Phone: 6(341)851-685848 [place] [address] 10-03-2024 08:00-0400 Inhaled oxygen flow rate 2 L/min Dr. Waqas Palma MD Work Phone: 8(278)788-227661 [place] [address] 10-03-2024 05:14-0400 Body mass index (BMI) [Ratio] 31.6 kg/m2 Dr. Waqas Palma MD Work Phone: 5(893)385-006561 [place] [address] 10-03-2024 05:14-0400 Body weight 68.[address] Waqas Palma MD Work Phone: 2(864)122-789761 [place] [address] 10-02-2024 13:07-0400 Body height 147.[address] Waqas Palma MD Work Phone: 3(887)386-772361 [place] [address] 10-01-2024 14:15-0400 Diastolic blood pressure 50 mm[Hg] Dr. Waqas Palma MD Work Phone: 4(038)440-299061 [place] [address] 10-01-2024 14:15-0400 Heart rate 67 /min Dr. Waqas Palma MD Work Phone: 1(218)742-546561 [place] [address] 10-01-2024 14:15-0400 Respiratory rate 16 /min Dr. Waqas Palma MD Work Phone: 4(756)727-790061 [place] [address] 10-01-2024 14:15-0400 SaO2% (BldA) [Mass fraction] 96 % Dr. Waqas Palma MD Work Phone: 0(265)820-959161 [place] [address] 10-01-2024 14:15-0400 Systolic blood pressure 106 mm[Hg] Dr. Waqas Palma MD Work Phone: 0(627)281-577561 [place] [address] 10-01-2024 14:08-0400 Body temperature 97.6 [degF] Dr. Waqas Palma MD Work Phone: 4(541)162-388061 [place] [address] 10-01-2024 10:18-0400 Body height 147.[address] Waqas Palma MD Work Phone: 1(120)987-887161 [place] [address] 10-01-2024 10:18-0400 Body mass index (BMI) [Ratio] 34.2 kg/m2 Dr. Waqas Palma MD Work Phone: 5(943)700-783061 [place] [address] 10-01-2024 10:18-0400 Body weight 74.[address] Waqas Palma MD Work Phone: 9(032)473-136361 [place] [address] 08-01-2024 08:57-0400 Diastolic blood pressure 95 mm[Hg] Dr. Waqas Palma MD Work Phone: 0(410)260-798161 [place] [address] 08-01-2024 08:57-0400 Heart rate 102 /min Dr. Waqas Palma MD Work Phone: 0(659)653-724961 [place] [address] 08-01-2024 08:57-0400 Respiratory rate 17 /min Dr. Waqas Palma MD Work Phone: [facility] 08-01-2024 08:57-0400 SaO2% (BldA) [Mass fraction] 100 % Dr. Waqas Palma MD Work Phone: [facility] 08-01-2024 08:57-0400 Systolic blood pressure 160 mm[Hg] Dr. Waqas Palma MD Work Phone: 4(764)909-533348 [place] [address] 07-22-2024 16:02-0400 Body mass index (BMI) [Ratio] 31.1 kg/m2 Dr. Waqas Palma MD Work Phone: 4(157)056-082161 [place] [address] 07-22-2024 16:02-0400 Body temperature 98.3 [degF] Dr. Waqas Palma MD Work Phone: 2(578)477-857161 [place] [address] 07-22-2024 16:02-0400 Body weight 67.[address] Waqas Palma MD Work Phone: 6(534)447-743748 [place] [address] 07-22-2024 16:02-0400 Diastolic blood pressure 71 mm[Hg] Dr. Waqas Palma MD Work Phone: 3(121)364-346738 [address] 07-22-2024 16:02-0400 Heart rate 70 /min Dr. Waqas Palma MD Work Phone: 5(097)912-585248 [place] [address] 07-22-2024 16:02-0400 Respiratory rate 18 /min Dr. Waqas Palma MD Work Phone: [facility] 07-22-2024 16:02-0400 SaO2% (BldA) [Mass fraction] 99 % Dr. Waqas Palma MD Work Phone: 2(163)846-540748 [place] [address] 07-22-2024 16:02-0400 Systolic blood pressure 145 mm[Hg] Dr. Waqas Palma MD Work Phone: [facility] 04-15-2024 09:34-0500 Body height 147.[address] Waqas Palma MD Work Phone: 6(142)225-166248 [place] [address] 04-15-2024 09:34-0500 Body mass index (BMI) [Ratio] 31.2 kg/m2 Dr. Waqas Palma MD Work Phone: [facility] 04-15-2024 09:34-0500 Body temperature 97.7 [degF] Dr. Waqas Palma MD Work Phone: [facility] 04-15-2024 09:34-0500 Body weight 67.[address] Waqas Palma MD Work Phone: 5(007)840-340138 [address] 04-15-2024 09:34-0500 Diastolic blood pressure 71 mm[Hg] Dr. Waqas Palma MD Work Phone: 8(441)525-700038 [address] 04-15-2024 09:34-0500 Heart rate 93 /min Dr. Waqas Palma MD Work Phone: 0(597)674-854238 [address] 04-15-2024 09:34-0500 Respiratory rate 18 /min Dr. Waqas Palma MD Work Phone: 7(645)125-238638 [address] 04-15-2024 09:34-0500 SaO2% (BldA) [Mass fraction] 95 % Dr. Waqas Palma MD Work Phone: 2(331)953-696038 [address] 04-15-2024 09:34-0500 Systolic blood pressure 147 mm[Hg] Dr. Waqas Palma MD Work Phone: 7(591)236-091638 [address] 05-29-2023 09:09-0500 Body height 147.[address] Waqas Palma Work Phone: 8(962)938-450348 [place] [address] 05-29-2023 09:09-0500 Body mass index (BMI) [Ratio] 31.4 kg/m2 Dr. Waqas Palma Work Phone: 3(604)934-431748 [place] [address] 05-29-2023 09:09-0500 Body temperature 97.4 [degF] Dr. Waqas Palma Work Phone: [facility] 05-29-2023 09:09-0500 Body weight 68.[address] Waqas Palma Work Phone: [facility] 05-29-2023 09:09-0500 Diastolic blood pressure 78 mm[Hg] Dr. Waqas Palma Work Phone: [facility] 05-29-2023 09:09-0500 Heart rate 82 /min Dr. Waqas Palma Work Phone: [facility] 05-29-2023 09:09-0500 Respiratory rate 18 /min Dr. Waqas Palma Work Phone: 7(203)917-371148 [place] [address] 05-29-2023 09:09-0500 SaO2% (BldA) [Mass fraction] 98 % Dr. Waqas Palma Work Phone: 0(289)860-190438 [address] 05-29-2023 09:09-0500 Systolic blood pressure 146 mm[Hg] Dr. Waqas Palma Work Phone: 2(210)844-579861 [place] [address] 01-30-2023 13:44-0400 Body height 147.[address] Waqas Palma Work Phone: 3(632)286-224761 [place] [address] 01-30-2023 13:44-0400 Body mass index (BMI) [Ratio] 32.3 kg/m2 Dr. Waqas Palma Work Phone: 0(423)263-053338 [address] 01-30-2023 13:44-0400 Body temperature 98.9 [degF] Dr. Waqas Palma Work Phone: 6(040)759-478748 [place] [address] 01-30-2023 13:44-0400 Body weight 70.[address] Waqas Palma Work Phone: 3(649)867-264848 [place] [address] 01-30-2023 13:44-0400 Diastolic blood pressure 76 mm[Hg] Dr. Waqas Palma Work Phone: 8(228)461-521548 [place] [address] 01-30-2023 13:44-0400 Heart rate 89 /min Dr. Waqas Palma Work Phone: [facility] 01-30-2023 13:44-0400 Respiratory rate 18 /min Dr. Waqas Palma Work Phone: [facility] 01-30-2023 13:44-0400 SaO2% (BldA) [Mass fraction] 98 % Dr. Waqas Palma Work Phone: [facility] 01-30-2023 13:44-0400 Systolic blood pressure 167 mm[Hg] Dr. Waqas Palma Work Phone: [facility] 01-24-2023 09:18-0400 Body height 147.[address] Waqas Palma Work Phone: [facility] 01-24-2023 09:18-0400 Body mass index (BMI) [Ratio] 31.8 kg/m2 Dr. Waqas Palma Work Phone: [facility] 01-24-2023 09:18-0400 Body temperature 98.1 [degF] Dr. Waqas Palma Work Phone: [facility] 01-24-2023 09:18-0400 Body weight 69.[address] Waqas Palma Work Phone: [facility] 01-24-2023 09:18-0400 Diastolic blood pressure 81 mm[Hg] Dr. Waqas Palma Work Phone: [facility] 01-24-2023 09:18-0400 Heart rate 89 /min Dr. Waqas Palma Work Phone: [facility] 01-24-2023 09:18-0400 Respiratory rate 18 /min Dr. Waqas Palma Work Phone: [facility] 01-24-2023 09:18-0400 SaO2% (BldA) [Mass fraction] 100 % Dr. Waqas Palma Work Phone: [facility] 01-24-2023 09:18-0400 Systolic blood pressure 156 mm[Hg] Dr. Waqas Palma Work Phone: [facility] 09-20-2022 09:44-0400 Body height 147.[address] Waqas Palma Work Phone: [facility] 09-20-2022 09:44-0400 Body mass index (BMI) [Ratio] 32.6 kg/m2 Dr. Waqas Palma Work Phone: [facility] 09-20-2022 09:44-0400 Body temperature 96.9 [degF] Dr. Waqas Palma Work Phone: [facility] 09-20-2022 09:44-0400 Body weight 70.[address] Waqas Palma Work Phone: [facility] 09-20-2022 09:44-0400 Diastolic blood pressure 73 mm[Hg] Dr. Waqas Palma Work Phone: [facility] 09-20-2022 09:44-0400 Heart rate 78 /min Dr. Waqas Palma Work Phone: [facility] 09-20-2022 09:44-0400 Respiratory rate 16 /min Dr. Waqas Palma Work Phone: [facility] 09-20-2022 09:44-0400 SaO2% (BldA) [Mass fraction] 97 % Dr. Waqas Palma Work Phone: [facility] 09-20-2022 09:44-0400 Systolic blood pressure 155 mm[Hg] Dr. Waqas Palma Work Phone: [facility] 07-28-2022 13:56-0400 Body height 147.[address] Waqas Palma Work Phone: [facility] 07-28-2022 13:56-0400 Body mass index (BMI) [Ratio] 32.5 kg/m2 Dr. Waqas Palma Work Phone: [facility] 07-28-2022 13:56-0400 Body temperature 98.2 [degF] Dr. Waqas Palma Work Phone: [facility] 07-28-2022 13:56-0400 Body weight 70.[address] Waqas Palma Work Phone: [facility] 07-28-2022 13:56-0400 Diastolic blood pressure 77 mm[Hg] Dr. Waqas Palma Work Phone: [facility] 07-28-2022 13:56-0400 Heart rate 87 /min Dr. Waqas Palma Work Phone: [facility] 07-28-2022 13:56-0400 Respiratory rate 16 /min Dr. Waqas Palma Work Phone: [facility] 07-28-2022 13:56-0400 SaO2% (BldA) [Mass fraction] 98 % Dr. Waqas Palma Work Phone: [facility] 07-28-2022 13:56-0400 Systolic blood pressure 157 mm[Hg] Dr. Waqas Palma Work Phone: [facility] 05-23-2022 09:35-0500 Body mass index (BMI) [Ratio] 33.7 kg/m2 Dr. Waqas Palma Work Phone: [facility] 05-23-2022 09:35-0500 Body temperature 97.8 [degF] Dr. Waqas Palma Work Phone: [facility] 05-23-2022 09:35-0500 Body weight 73.[address] Waqas Palma Work Phone: [facility] 05-23-2022 09:35-0500 Diastolic blood pressure 78 mm[Hg] Dr. Waqas Palma Work Phone: [facility] 05-23-2022 09:35-0500 Heart rate 80 /min Dr. Waqas Palma Work Phone: [facility] 05-23-2022 09:35-0500 Respiratory rate 18 /min Dr. Waqas Palma Work Phone: [facility] 05-23-2022 09:35-0500 SaO2% (BldA) [Mass fraction] 80 % Dr. Waqas Palma Work Phone: [facility] 05-23-2022 09:35-0500 Systolic blood pressure 156 mm[Hg] Dr. Waqas Palma Work Phone: [facility] 05-05-2022 12:52-0500 Body mass index (BMI) [Ratio] 32.8 kg/m2 Dr. Waqas Palma Work Phone: [facility] 05-05-2022 12:52-0500 Body temperature 98.2 [degF] Dr. Waqas Palma Work Phone: [facility] 05-05-2022 12:52-0500 Body weight 71.[address] Waqas Palma Work Phone: [facility] 05-05-2022 12:52-0500 Diastolic blood pressure 61 mm[Hg] Dr. Waqas Palma Work Phone: [facility] 05-05-2022 12:52-0500 Heart rate 77 /min Dr. Waqas Palma Work Phone: [facility] 05-05-2022 12:52-0500 Respiratory rate 17 /min Dr. Waqas Palma Work Phone: [facility] 05-05-2022 12:52-0500 SaO2% (BldA) [Mass fraction] 99 % Dr. Waqas Palma Work Phone: [facility] 05-05-2022 12:52-0500 Systolic blood pressure 139 mm[Hg] Dr. Waqas Palma Work Phone: [facility] 04-26-2022 10:26-0500 Body mass index (BMI) [Ratio] 33.3 kg/m2 Dr. Waqas Palma Work Phone: [facility] 04-26-2022 10:26-0500 Body temperature 97 [degF] Dr. Waqas Palma Work Phone: [facility] 04-26-2022 10:26-0500 Body weight 72.[address] Waqas Palma Work Phone: [facility] 04-26-2022 10:26-0500 Diastolic blood pressure 79 mm[Hg] Dr. Waqas Palma Work Phone: [facility] 04-26-2022 10:26-0500 Heart rate 81 /min Dr. Waqas Palma Work Phone: [facility] 04-26-2022 10:26-0500 Respiratory rate 16 /min Dr. Waqas Palma Work Phone: [facility] 04-26-2022 10:26-0500 SaO2% (BldA) [Mass fraction] 96 % Dr. Waqas Palma Work Phone: [facility] 04-26-2022 10:26-0500 Systolic blood pressure 144 mm[Hg] Dr. Waqas Palma Work Phone: [facility] 04-20-2022 10:11-0500 Body mass index (BMI) [Ratio] 33.3 kg/m2 Dr. Waqas Palma Work Phone: [facility] 04-20-2022 10:11-0500 Body temperature 97 [degF] Dr. Waqas Palma Work Phone: [facility] 04-20-2022 10:11-0500 Body weight 72.[address] Waqas Palma Work Phone: [facility] 04-20-2022 10:11-0500 Diastolic blood pressure 84 mm[Hg] Dr. Waqas Palma Work Phone: [facility] 04-20-2022 10:11-0500 Heart rate 75 /min Dr. Waqas Palma Work Phone: [facility] 04-20-2022 10:11-0500 Respiratory rate 16 /min Dr. Waqas Palma Work Phone: [facility] 04-20-2022 10:11-0500 SaO2% (BldA) [Mass fraction] 99 % Dr. Waqas Palma Work Phone: [facility] 04-20-2022 10:11-0500 Systolic blood pressure 158 mm[Hg] Dr. Waqas Palma Work Phone: [facility] 04-13-2022 10:08-0500 Body mass index (BMI) [Ratio] 33.4 kg/m2 Dr. Waqas Palma Work Phone: [facility] 04-13-2022 10:08-0500 Body temperature 97.8 [degF] Dr. Waqas Palma Work Phone: [facility] 04-13-2022 10:08-0500 Body weight 72.[address] Waqas Palma Work Phone: [facility] 04-13-2022 10:08-0500 Diastolic blood pressure 70 mm[Hg] Dr. Waqas Palma Work Phone: [facility] 04-13-2022 10:08-0500 Heart rate 78 /min Dr. Waqas Palma Work Phone: [facility] 04-13-2022 10:08-0500 Respiratory rate 18 /min Dr. Waqas Palma Work Phone: [facility] 04-13-2022 10:08-0500 SaO2% (BldA) [Mass fraction] 99 % Dr. Waqas Palma Work Phone: [facility] 04-13-2022 10:08-0500 Systolic blood pressure 148 mm[Hg] Dr. Waqas Palma Work Phone: [facility] 04-06-2022 10:09-0500 Body mass index (BMI) [Ratio] 33.4 kg/m2 Dr. Waqas Palma Work Phone: [facility] 04-06-2022 10:09-0500 Body temperature 97.1 [degF] Dr. Waqas Palma Work Phone: [facility] 04-06-2022 10:09-0500 Body weight 72.[address] Waqas Palma Work Phone: [facility] 04-06-2022 10:09-0500 Diastolic blood pressure 64 mm[Hg] Dr. Waqas Palma Work Phone: [facility] 04-06-2022 10:09-0500 Heart rate 65 /min Dr. Waqas Palma Work Phone: [facility] 04-06-2022 10:09-0500 Respiratory rate 16 /min Dr. Waqas Palma Work Phone: [facility] 04-06-2022 10:09-0500 SaO2% (BldA) [Mass fraction] 100 % Dr. Waqas Palma Work Phone: [facility] 04-06-2022 10:09-0500 Systolic blood pressure 135 mm[Hg] Dr. Waqas Palma Work Phone: [facility] 01-24-2022 16:07-0400 Body height 147.[address] Waqas Palma Work Phone: [facility] Work Phone: 01-24-2022 15:56-0400 Body mass index (BMI) [Ratio] 33.7 kg/m2 Dr. Waqas Palma Work Phone: [facility] Work Phone: 01-24-2022 15:56-0400 Body weight 73.[address] Waqas Palma Work Phone: [facility] Work Phone: 01-24-2022 15:56-0400 Diastolic blood pressure 65 mm[Hg] Dr. Waqas Palma Work Phone: [facility] Work Phone: 01-24-2022 15:56-0400 Heart rate 79 /min Dr. Waqas Palma Work Phone: [facility] Work Phone: 01-24-2022 15:56-0400 Respiratory rate 16 /min Dr. Waqas Palma Work Phone: [facility] Work Phone: 01-24-2022 15:56-0400 Systolic blood pressure 132 mm[Hg] Dr. Waqas Palma Work Phone: [facility] Work Phone: 01-05-2022 14:55-0400 Body temperature 97.9 [degF] Dr. Waqas Palma Work Phone: [facility] Work Phone: 01-05-2022 14:55-0400 Diastolic blood pressure 45 mm[Hg] Dr. Waqas Palma Work Phone: [facility] Work Phone: 01-05-2022 14:55-0400 Heart rate 60 /min Dr. Waqas Palma Work Phone: [facility] Work Phone: 01-05-2022 14:55-0400 Respiratory rate 18 /min Dr. Waqas Palma Work Phone: [facility] Work Phone: 01-05-2022 14:55-0400 SaO2% (BldA) [Mass fraction] 99 % Dr. Waqas Palma Work Phone: [facility] Work Phone: 01-05-2022 14:55-0400 Systolic blood pressure 116 mm[Hg] Dr. Waqas Palma Work Phone: [facility] Work Phone: 01-05-2022 14:00-0400 Inhaled oxygen flow rate 2 L/min Dr. Waqas Palma Work Phone: [facility] Work Phone: 01-05-2022 08:35-0400 Body temperature 98.2 [degF] Dr. Waqas Palma Work Phone: [facility] Work Phone: 01-05-2022 08:35-0400 Diastolic blood pressure 50 mm[Hg] Dr. Waqas Palma Work Phone: [facility] Work Phone: 01-05-2022 08:35-0400 Heart rate 68 /min Dr. Waqas Palma Work Phone: [facility] Work Phone: 01-05-2022 08:35-0400 Respiratory rate 18 /min Dr. Waqas Palma Work Phone: [facility] Work Phone: 01-05-2022 08:35-0400 SaO2% (BldA) [Mass fraction] 97 % Dr. Waqas Palma Work Phone: [facility] Work Phone: 01-05-2022 08:35-0400 Systolic blood pressure 140 mm[Hg] Dr. Waqas Palma Work Phone: [facility] Work Phone: 01-04-2022 11:52-0400 Body height 147.[address] Waqas Palma Work Phone: [facility] Work Phone: 01-04-2022 11:52-0400 Body mass index (BMI) [Ratio] 34 kg/m2 Dr. Waqas Palma Work Phone: [facility] Work Phone: 01-04-2022 11:52-0400 Body weight [address] Waqas Palma Work Phone: [facility] Work Phone: 12-15-2021 13:06-0400 Body mass index (BMI) [Ratio] 33.8 kg/m2 Dr. Waqas Palma Work Phone: [facility] Work Phone: 12-15-2021 13:06-0400 Body temperature 97.4 [degF] Dr. Waqas Palma Work Phone: [facility] Work Phone: 12-15-2021 13:06-0400 Body weight 73.[address] Waqas Palma Work Phone: [facility] Work Phone: 12-15-2021 13:06-0400 Diastolic blood pressure 68 mm[Hg] Dr. Waqas Palma Work Phone: [facility] Work Phone: 12-15-2021 13:06-0400 Heart rate 82 /min Dr. Waqas Palma Work Phone: [facility] Work Phone: 12-15-2021 13:06-0400 Respiratory rate 16 /min Dr. Waqas Palma Work Phone: [facility] Work Phone: 12-15-2021 13:06-0400 SaO2% (BldA) [Mass fraction] 100 % Dr. Waqas Palma Work Phone: [facility] Work Phone: 12-15-2021 13:06-0400 Systolic blood pressure 127 mm[Hg] Dr. Waqas Palma Work Phone: [facility] Work Phone: 10-28-2021 11:16-0400 Body mass index (BMI) [Ratio] 34.9 kg/m2 Dr. Waqas Palma Work Phone: [facility] Work Phone: 10-28-2021 11:16-0400 Body temperature 98.2 [degF] Dr. Waqas Palma Work Phone: [facility] Work Phone: 10-28-2021 11:16-0400 Body weight 75.[address] Waqas Palma Work Phone: [facility] Work Phone: 10-28-2021 11:16-0400 Diastolic blood pressure 74 mm[Hg] Dr. Waqas Palma Work Phone: [facility] Work Phone: 10-28-2021 11:16-0400 Heart rate 84 /min Dr. Waqas Palma Work Phone: [facility] Work Phone: 10-28-2021 11:16-0400 Respiratory rate 15 /min Dr. Waqas Palma Work Phone: [facility] Work Phone: 10-28-2021 11:16-0400 SaO2% (BldA) [Mass fraction] 99 % Dr. Waqas Palma Work Phone: [facility] Work Phone: 10-28-2021 11:16-0400 Systolic blood pressure 156 mm[Hg] Dr. Waqas Palma Work Phone: [facility] Work Phone: 10-11-2021 15:38-0400 Body mass index (BMI) [Ratio] 34.3 kg/m2 Dr. Waqas Palma Work Phone: [facility] Work Phone: 10-11-2021 15:38-0400 Body temperature 98 [degF] Dr. Waqas Palma Work Phone: [facility] Work Phone: 10-11-2021 15:38-0400 Body weight 74.[address] Waqas Palma Work Phone: [facility] Work Phone: 10-11-2021 15:38-0400 Diastolic blood pressure 70 mm[Hg] Dr. Waqas Palma Work Phone: [facility] Work Phone: 10-11-2021 15:38-0400 Heart rate 86 /min Dr. Waqas Palma Work Phone: [facility] Work Phone: 10-11-2021 15:38-0400 Respiratory rate 18 /min Dr. Waqas Palma Work Phone: [facility] Work Phone: 10-11-2021 15:38-0400 SaO2% (BldA) [Mass fraction] 99 % Dr. Waqas Palma Work Phone: [facility] Work Phone: 10-11-2021 15:38-0400 Systolic blood pressure 138 mm[Hg] Dr. Waqas Palma Work Phone: [facility] Work Phone: 08-27-2021 10:09-0400 Body height 147.[address] Waqas Palma Work Phone: [facility] Work Phone: 08-27-2021 10:09-0400 Body mass index (BMI) [Ratio] 34.4 kg/m2 Dr. Waqas Palma Work Phone: [facility] Work Phone: 08-27-2021 10:09-0400 Body temperature 97.4 [degF] Dr. Waqas Palma Work Phone: [facility] Work Phone: 08-27-2021 10:090400 Body weight 74.[address] Waqas Palma Work Phone: [facility] Work Phone: 08-27-2021 10:09-0400 Diastolic blood pressure 77 mm[Hg] Dr. Waqas Palma Work Phone: [facility] Work Phone: 08-27-2021 10:09-0400 Heart rate 92 /min Dr. Waqas Palma Work Phone: [facility] Work Phone: 08-27-2021 10:09-0400 Respiratory rate 18 /min Dr. Waqas Palma Work Phone: [facility] Work Phone: 08-27-2021 10:09-0400 SaO2% (BldA) [Mass fraction] 100 % Dr. Waqas Palma Work Phone: [facility] Work Phone: 08-27-2021 10:09-0400 Systolic blood pressure 137 mm[Hg] Dr. Waqas Palma Work Phone: [facility] Work Phone: 08-27-2021 10:09-0400 Body height 147.[address] Waqas Palma Work Phone: [facility] Work Phone: 08-27-2021 10:09-0400 Body mass index (BMI) [Ratio] 34.4 kg/m2 Dr. Waqas Palma Work Phone: [facility] Work Phone: 08-27-2021 10:09-0400 Body temperature 97.4 [degF] Dr. Waqas Palma Work Phone: [facility] Work Phone: 08-27-2021 10:09-0400 Body weight 74.[address] Waqas Palma Work Phone: [facility] Work Phone: 08-27-2021 10:09-0400 Diastolic blood pressure 77 mm[Hg] Dr. Waqas Palma Work Phone: [facility] Work Phone: 08-27-2021 10:09-0400 Heart rate 92 /min Dr. Waqas Palma Work Phone: [facility] Work Phone: 08-27-2021 10:09-0400 Respiratory rate 18 /min Dr. Waqsa Palma Work Phone: [facility] Work Phone: 08-27-2021 10:09-0400 SaO2% (BldA) [Mass fraction] 100 % Dr. Waqas Palma Work Phone: [facility] Work Phone: 08-27-2021 10:09-0400 Systolic blood pressure 137 mm[Hg] Dr. Waqas Palma Work Phone: [facility] Work Phone: Encounters Encounter Date Encounter Type Care Provider Facility Start: 01-30-2025 End: 01-30-2025 ambulatory Waqas Palma Facility:[facility] Start: 01-21-2025 End: 01-21-2025 ambulatory Waqas Palma Facility:[facility] Start: 01-16-2025 End: 01-16-2025 ambulatory Waqas Palma Facility:[facility] Start: 01-13-[address] Robinson Baker on -[facility] Start: 01-13-2025 End: 01-13-[address] Alonzo John MD -[facility] Work Phone: Start: 01-13-2025 End: 01-13-[address] Waqas Palma MD Work Phone: -[facility] Start: 11-28-2024 End: 11-28-[address] Waqas Palma MD Work Phone: -Outpatient Breast Imaging Start: 11-28-2024 End: 11-28-[address] Robinson Yepez DO -Outpatient Breast Imaging Work Phone: Start: 11-28-2024 End: 11-28-2024 ambulatory [facility] Facility:[facility] Start: 10-30-2024 End: 10-30-[address] Luis Fernando Garza MD -[facility] Work Phone: Start: 10-30-2024 End: 10-30-[address] Waqas Palma MD Work Phone: -[facility] Start: 10-03-2024 Non-patient / Non-visit Dr. Dedrick curtis MD -[facility] Work Phone: Start: 10-02-2024 Non-patient / Non-visit Dr. Dedrick curtis MD -[facility] Work Phone: Start: 10-02-2024 ambulatory Maame Damon Facility:[facility] Start: 10-02-2024 Non-patient / Non-visit Dr. Maame aguila MD -[facility] Start: 10-01-2024 ambulatory Dedrick Mckeon Facility:[facility] Start: 10-01-2024 End: 10-03-2024 Evaluation and management of inpatient Dr. Dedrick Mckeon MD -Progressive Care Unit Work Phone: Start: 10-01-2024 ambulatory [facility] Facility:[facility] Start: 10-01-2024 Non-patient / Non-visit Dr. Bruce montero MD -[facility] Start: 08-01-2024 End: 08-01-[address] Zahida Arroyo MD -[facility] Work Phone: Start: 08-01-2024 End: 08-01-2024 ambulatory Waqas Palma Facility:[facility] Start: 07-22-[address] Robinson Baker on [facility] Start: 07-22-2024 End: 07-22-[address] Alonzo John MD -[facility] Work Phone: Start: 07-22-2024 End: 07-22-2024 ambulatory Waqas Palma Facility:[facility] Start: 07-15-2024 End: 07-15-[address] Waqas Palma MD Work Phone: [facility] Work Phone: Start: 07-15-2024 End: 07-15-[address] Waqas Palma MD -Laboratory, Specimen Work Phone: Start: 07-15-2024 End: 07-15-2024 ambulatory Waqas Palma Facility:[facility] Start: 04-15-2024 End: 04-15-[address] Robinson Yepez [facility] Work Phone: Start: 04-15-2024 End: 04-15-2024 ambulatory Robinson Yepez Facility:[facility] Start: 07-22-2023 End: 07-22-[address] Waqas Palma Work Phone: [facility] Work Phone: Start: 07-22-2023 End: 07-22-[address] Waqas Palma Work Phone: [facility]-Laboratory Work Phone: Start: 05-29-2023 End: 05-29-[address] Waqas Palma Work Phone: [facility] Work Phone: Start: 01-30-[address] Waqas Palma Work Phone: [facility] Start: 01-30-2023 End: 01-30-[address] Waqas Palma Work Phone: [facility] Work Phone: Start: 01-24-2023 End: 01-24-[address] Waqas Palma Work Phone: [facility] Work Phone: Start: 01-19-2023 End: 01-19-[address] Waqas Palma Work Phone: [facility] Work Phone: Start: 01-19-2023 End: 01-19-[address] Waqas Palma Work Phone: [facility] Start: 10-25-2022 End: 10-25-[address] Waqas Palma Work Phone: [facility] Work Phone: Start: 10-25-2022 End: 10-25-[address] Waqas Palma Work Phone: [facility]-Occupational Therapy Work Phone: Start: 10-25-[address] Waqas Palma Work Phone: [facility]ational [facility] Work Phone: Start: 09-27-[address] Waqas Palma Work Phone: [facility]Occ[facility]ational [facility] Work Phone: Start: 09-26-2022 End: 09-26-[address] Waqas Palma Work Phone: [facility] Work Phone: Start: 09-26-2022 End: 09-26-[address] Waqas Palma Work Phone: [facility] Work Phone: Start: 09-20-[address] Waqas Palma Work Phone: [facility] Start: 09-20-2022 End: 09-20-[address] Waqas Palma Work Phone: [facility] Start: 09-16-2022 End: 09-16-[address] Waqas Palma Work Phone: [facility] Work Phone: Start: 09-16-2022 End: 09-16-[address] Waqas Palma Work Phone: [facility] Start: 09-13-[address] Waqas Palma Work Phone: [facility]-Occupational Therapy Start: 07-28-[address] Waqas Palma Work Phone: [facility] Start: 07-28-2022 End: 07-28-[address] Waqas Palma Work Phone: [facility] Start: 05-23-2022 End: 05-23-[address] Waqas Palma Work Phone: [facility] Start: 05-05-2022 End: 05-05-[address] Wqaas Palma Work Phone: [facility] Start: 04-26-2022 End: 04-26-[address] Waqas Palma Work Phone: [facility] Start: 04-20-2022 End: 04-20-[address] Waqas Palma Work Phone: [facility] Start: 04-13-2022 End: 04-13-[address] Waqas Palma Work Phone: [facility] Start: 04-06-2022 End: 04-06-[address] Waqas Palma Work Phone: [facility] Start: 02-01-2022 End: 02-01-[address] Waqas Palma Work Phone: [facility] Start: 01-27-2022 End: 01-27-[address] Waqas Palma Work Phone: [facility] Work Phone: Start: 01-27-2022 End: 01-27-[address] Waqas Palma Work Phone: [facility]-Outpatient Bone Densitometry Start: 01-25-2022 End: 01-25-[address] Waqas Palma Work Phone: [facility] Start: 01-24-2022 End: 01-24-[address] Waqas Palma Work Phone: [facility] Start: 01-19-2022 End: 01-19-[address] Waqas Palma Work Phone: [facility] Start: 01-07-2022 End: 01-07-[address] Waqas Palma Work Phone: [facility] Start: 01-05-2022 Non-patient / Non-visit Dr. Chandra Palma Work Phone: [facility] Start: 01-04-2022 End: 01-05-2022 Evaluation and management of inpatient Dr. Waqas Palma Work Phone: [facility] Start: 01-04-2022 End: 01-05-[address] Waqas Palma Work Phone: [facility] Work Phone: Start: 01-04-2022 Non-patient / Non-visit Dr. Chandra Palma Work Phone: [facility] Start: 12-15-2021 End: 12-15-[address] Waqas Palma Work Phone: [facility] Start: 10-28-2021 End: 10-28-[address] Waqas Palma Work Phone: [facility] Start: 10-28-[address] Waqas Palma Work Phone: [facility] Start: 10-26-2021 Non-patient / Non-visit Dr. Chandra Palma Work Phone: [facility] Start: 10-26-2021 End: 10-26-[address] Waqas Palma Work Phone: [facility]-Cardiovascular Services Start: 10-21-2021 End: 10-21-[address] Waqas Palma [facility] Phone[facility] Start: 10-18-2021 End: 10-18-[address] Waqas Palma Work Phone: [facility]-Cat Scan, [facility] Start: 10-11-2021 End: 10-11-[address] Waqas Palma Work Phone: [facility] Start: 10-08-2021 Non-patient / Non-visit Dr. Chandra Palma Work Phone: [facility] Start: 10-08-2021 End: 10-08-[address] Waqas Palma Work Phone: [facility] Start: 10-01-2021 End: 10-01-[address] Waqas Palma Work Phone: [facility]-Laboratory, Specimen Start: 10-01-2021 End: 10-01-[address] Waqas Palma Work Phone: [facility] Start: 09-08-2021 End: 09-08-[address] Waqas Palma Work Phone: [facility] Start: 09-01-2021 End: 09-01-[address] Waqas Palma Work Phone: [facility] Start: 08-27-2021 End: 08-27-[address] Waqas Palma Work Phone: [facility] Start: 08-20-2021 End: 08-20-2021 Patient encounter procedure [facility]-Outpatient Breast Imaging Start: 08-18-2021 End: 08-18-2021 Patient encounter procedure [facility] Start: 02-10-2011 End: 02-10-2011 Patient encounter procedure Inder Thapa Work Phone: [facility] Start: 02-10-2011 Results Only Inder Thapa Work Phone: [facility] Start: 11-13-2008 End: 11-13-2008 Patient encounter procedure Inder Thapa Work Phone: [facility] Start: 11-13-2008 Results Only Inder Thapa Work Phone: [facility] Procedures Date Procedure Procedure Detail Performing Clinician Start: 01-13-[address] Waqas Palma MD Work Phone: Start: 11-28-2024 Screening mammograph y of right breast Dr. Waqas Palma MD Work Phone: Start: 10-03-[address] Waqas Palma MD Work Phone: Start: 10-02-2024 CT angiography of ch est with contrast Dr. Waqas Palma MD Work Phone: Start: 10-02-2024 Serum inorganic phos phate measurement Dr. Waqas Palma MD Work Phone: Start: 10-01-[address] Waqas Plama MD Work Phone: Start: 10-01-2024 Urnls dip stick/tabl et reagent auto microscopy Dr. Waqas Palma MD Work Phone: Start: 10-01-[address] Waqas Palma MD Work Phone: Start: 10-01-2024 Plain chest X-ray Dr. Milagro Palma MD Work Phone: Start: 07-22-2024 X-ray of cervical spine Dr. Waqas Palma MD Work Phone: Start: 07-22-[address] Waqas Palma MD Work Phone: Start: 07-15-2024 Urnls dip stick/tabl et reagent auto microscopy Dr. Waqas Palma MD Work Phone: Start: 07-15-[address] Waqas Palma MD Work Phone: Start: 01-29-2024 Urnls dip stick/tabl et reagent auto microscopy Dr. Waqas Palma MD Work Phone: Start: 01-29-2024 Assay of phosphorus inorganic Dr. Waqas Palma MD Work Phone: Start: 01-29-2024 Measurement of renal function Dr. Waqas Palma MD Work Phone: Comment on above: GFR Calc Start: 01-29-[address] Waqas Palma MD Work Phone: Start: 01-29-[address] Waqas Palma MD Work Phone: Start: 07-31-2023 Vitamin D, 25-hydrox y measurement Dr. Waqas Palma MD Work Phone: Comment on above: Vitamin D 25(OH) Sta tus Range Deficiency <20 ng/mL (50nmol/L) Insufficiency 20 - 30 ng/mL (50 - 75 nmol/L) Sufficiency 30 - 100 ng/mL (75 - 250 nmol/L) Toxicity >100 ng/mL (>250 nmol/L) Start: 09-26-2022 CT of lumbar spine Dr. Waqas Palma Work Phone: Start: 09-26-2022 CT of pelvis with contrast Dr. Waqas Palma Work Phone: Start: 09-26-2022 Screening mammograph y of right breast Dr. Waqas Palma Work Phone: Start: 09-16-2022 X-ray of lumbosacral spine Dr. Waqas Palma Work Phone: Start: 09-16-2022 Plain x-ray of pelvi s and lower extremity Dr. Waqas Palma Work Phone: Start: 02-23-2022 PET study for locali zation of tumor Dr. Waqas Palma Work Phone: Start: 01-27-2022 Dual energy X-ray absorptiometry Dr. Waqas Palma Work Phone: Start: 01-04-[address] Enedina Palma Work Phone: Start: 01-04-2022 Mastectomy Modified Radical Axil Node (Left) Dr. Waqas Palma Work Phone: Start: 10-21-2021 Radionuclide whole b toribio bone study Dr. Waqas Palma Work Phone: Start: 10-18-2021 CT of chest and abdomen Dr. Waqas Palma Work Phone: Start: 09-08-2021 MRI of bilateral gilmer asts with contrast Dr. Waqas Palma Work Phone: Start: 09-01-[address] Waqas Palma Work Phone: Start: 08-20-2021 Mammography Start: 08-20-2021 Ultrasonography of breast Start: 02-10-2011 CONVERTED CYTOLOGY PIPE FITTER Inder Thapa Work Phone: Start: 11-13-2008 CONVERTED CYTOLOGY PIPE FITTER Inder Thapa Work Phone: Urine culture Dr. Waqas ramirez Work Phone: Plan of Treatment Date Care Activity Detail Author Start: 01-21-2025 Radionuclide whole body bone study Bone Scan Whole Body [facility] Start: 01-21-2025 Patient encounter procedure Registered Clinical -Nuclear Med [facility] Work Phone: Start: 01-16-2025 Dual energy X-ray absorptiometry Dexa Bone Density Study [facility] Start: 01-16-2025 Patient encounter procedure Registered Clinical -Outpatient Bone Densitometry Work Phone: Start: 10-30-2024 End: 10-30-2024 Evaluation of diagnostic study results [facility] Start: 10-03-2024 Patient discharge [facility] Start: 10-03-2024 Referral to service [facility] Start: 10-02-2024 Chemotherapy care management [facility] Start: 10-01-2024 Following clinical pathway protocol [facility] Start: 10-01-2024 Ambulation without limitation [facility] Start: 10-01-2024 Assessment of risk of venous thromboembolism [facility] Start: 10-01-2024 Catheterization of vein [facility] Start: 10-01-2024 Elevation of affected extremity [facility] Start: 10-01-2024 Insertion of catheter into peripheral vein [facility] Start: 10-01-2024 Measuring intake and output [facility] Start: 10-01-2024 Notification of physician [facility] Start: 10-01-2024 Oxygen therapy [facility] Start: 10-01-2024 Patient education [facility] Start: 10-01-2024 Providing care according to standard [facility] Start: 10-01-2024 [facility] Start: 10-01-2024 Bacteria identified in Urine by Culture Urine Culture [facility] Start: 10-01-2024 Verification routine [facility] Start: 10-01-2024 Admission procedure [facility] Start: 10-01-2024 Hospital admission, emergency, from emergency room, medical nature [facility] Start: 10-01-2024 [facility] Start: 07-28-2022 Patient referral [facility] Work Phone: Start: 01-05-2022 Patient discharge [facility] Work Phone: Start: 01-04-2022 Anes integ extremities ant trunk & perineum nos ANESTH SKIN EXT/PER/ATRUNK [facility] Work Phone: Start: 01-04-2022 Bx/exc lymph node open deep axillary node BIOPSY/REMOVAL LYMPH NODES [facility] Work Phone: Start: 01-04-2022 Mastectomy simple complete MAST SIMPLE COMPLETE [facility] Work Phone: Start: 01-04-2022 Following clinical pathway protocol [facility] Work Phone: Start: 01-04-2022 Application of intermittent pneumatic compression device [facility] Work Phone: Start: 01-04-2022 Ambulation without limitation [facility] Work Phone: Start: 01-04-2022 Catheterization of vein [facility] Work Phone: Start: 01-04-2022 Incentive spirometry [facility] Work Phone: Start: 01-04-2022 Maintenance of drainage tube [facility] Work Phone: Start: 01-04-2022 Measuring intake and output [facility] Work Phone: Start: 01-04-2022 Notification of physician [facility] Work Phone: Start: 01-04-2022 Vital signs measurements [facility] Work Phone: Start: 01-04-2022 [facility] Work Phone: Start: 01-04-2022 Admission procedure [facility] Work Phone: Start: 10-08-2021 Patient referral [facility] Work Phone: Start: 08-20-2021 Ultrasonography of breast [facility] Work Phone: Cancer Ag 15-3 [Pres ence] in Serum or Plasma [facility] Cancer Ag 27-29 [Pre sence] in Serum or Plasma [facility] CBC W Auto Different ial panel - Blood [facility] Work Phone: CBC W Auto Different ial panel - Blood [facility] CBC W Auto Different ial panel - Blood [facility] CBC W Auto Different ial panel - Blood [facility] Comprehensive metabo lic 2000 panel - Serum or Plasma [facility] CT Lumbar spine [facility] CT Pelvis W contrast IV [facility] Electrocardiographic procedure [facility] Work Phone: Lactate dehydrogenas e measurement [facility] Lactate dehydrogenas e measurement [facility] Lactate dehydrogenas e measurement [facility] LDH [facility] Work Phone: Magnesium [Mass/volu me] in Serum or Plasma [facility] MG Breast - right Screening [facility] MG Breast - right Screening [facility] MG Breast - right Screening [facility] NM Whole body Bone Views [facility] Work Phone: Patient referral [facility] Work Phone: Urine culture [facility] US Heart [facility] Work Phone: [facility] Immunizations Immunization Date Immunization Notes Care Provider Fa [facility] 01-29-2020 influenza, injectabl e, quadrivalent, preservative free Dr. Waqas Palma Work Phone: [facility] 01-29-2020 influenza, seasonal, injectable [facility] Payers Date Payer Category Payer Self-pay [id number] 2011 Medicare [id number] [facility] [id number] Unknown [id number] 2.16.8 [id number] Unknown [id number] 2.16.8 [id number] Unknown [id number] 2.16.8 [id number] Unknown [id number] 2.16.8 [id number] Unknown [id number] 2.16.8 40.1.770396.3.579.2.462 Unknown [id number] 2.16.8 40.1.249805.3.579.2.462 Unknown [id number] 2.16.8 40.1.019751.3.579.2.462 Unknown [id number] 2.16.8 40.1.092465.3.579.2.462 Unknown [id number] 2.16.8 40.1.587333.3.579.2.462 Unknown [id number] 2.16.8 40.1.167727.3.579.2.462 Unknown [id number] 2.16.8 40.1.633842.3.579.2.462 Unknown [id number] 2.16.8 40.1.424448.3.579.2.462 Unknown [id number] 2.16.8 40.1.696175.3.579.2.462 Unknown [id number] 2.16.8 40.1.960426.3.579.2.462 Unknown [id number] 2.16.8 40.1.020469.3.579.2.462 Unknown [id number] 2.16.8 40.1.991140.3.579.2.462 Unknown [id number] 2.16.8 [id number] Social History Date Type Detail Facility Tobacco smoking status NHIS Unknown if ever smoked [facility] Sex Assigned At Not on file [facility] Start: 03-18-2020 End: 12-28-2021 Tobacco smoking status NHIS Unknown if ever smoked [facility] Start: 03-05-2020 None [facility] Start: 03-05-2020 Spouse/ Signif icant Other [facility] Start: 03-05-2020 Non-smoker [facility] Start: 1935 Sex Assigned At Female [facility] Start: 12-28-2021 End: 10-01-2024 Tobacco smoking status NHIS Never smoked tobacco (finding) [facility] Start: 07-18-2024 Sex Female (finding) [facility] Sex Female [facility] Medical Equipment Procedure Code Equipment Code Equipment Origin al Text Equipment Identifier Dates SUTURE,LIGA CLIP MED [id number] FDA Start: 01-04-2022 SUTURE,LIGA CLIP MED [id number] FDA Start: 01-04-2022 SUTURE,LIGA CLIP SM LT-100 FDA Start: 01-04-2022 SUTURE,LIGA CLIP SM LT-100 FDA Start: 01-04-2022 Ligation clip, metallic [id number] FDA Start: 01-04-2022 SUTURE,LIGA CLIP MED LT200 [...] Assessment Result Facility 10-03-2024 Functional status Ambulates [facility] Work Phone: 01-05-2022 Functional status Ambulates;Chair [facility] Work Phone: Mental Status Date Assessment Result Facility 10-03-2024 Cognitive function Voice/Name [facility] Work Phone: 10-01-2024 Cognitive function Level Of Cons ciousness Awake;Alert;Appropriate;Follow s Commands [facility] Work Phone: 07-28-2022 Cognitive function Awake;Alert;A ppropriate;Follow s Commands [facility] Work Phone: 01-05-2022 Cognitive function Level Of Cons ciousness Awake;Alert;Appropriate;Follow s Commands [facility] Work Phone: 01-04-2022 Cognitive function Voice/Name [facility] Work Phone: Clinical Notes 02-10-2023 to 01-13-2025 Note Date & Type Note Facility 01-13-2025 Progress note [facility] 10-03-2024 Hospital Discharg e instructions Additional Instructions Date of Discharge: 10/03/24 [facility] Work Phone: 10-03-2024 Discharge summary Note Date/Time October 03, 2024 10:40am [facility] Medical Records Department [address] [place] [address] Discharge Summary 10/03/24 1025 MR#: [id number] Acct: [id number] Name: NESTOR MONTES DE OCA I Rep #:[id number] : 1935 89 From: Dedrick Mckeon MD PCP: Dr. Waqas Palma MD Status:ADM I N Location: [place] [address] Providers Date of Admission: 10/01/24 Date of Discharge: 10/03/24 Primary Care Physician: Dr. Waqas Palma MD Reason For Visit: AFIB W/ RVR, [...] mg/mL subcutaneous syringe (Prolia) 60 mg subcut [id number] 09/20/22 premier protein 30 g PO .every [...] (Auto) 73.4 H, Lymph % (Auto) 10.9 L,[place] % (Auto) 10.4 H, Eos % (Auto) [...] Ordering Physician: Dedrick Mckeon Referring Physician: Waqas Palma Performed By: Earline Cosme RDCS Chest CTA 10/02/24 11:00 IMPRESSION: No demonstrated PE, or thoracic aortic aneurysm or dissection Diffuse interstitial edema in both lung melendez with free-flowing bilateral pleural effusions and bibasilar atelectasis consistent with CHF Cardiomegaly with calcified coronary vessels No suspicious adenopathy Degenerative bony changes Diffuse atherosclerosis Reading Location: [facility] D/C Instructions Discharge Diet: 8 Cup Fluid [...] Provider: Dedrick Mckeon Primary Care Provider: Waqas Palma Discharge Orders/Prescriptions Prescriptions: New Eliquis 5 mg [...] Prolia 60 mg/mL syringe 60 mg subcut [id number] premier protein 30 g PO .every other [...] PO DAILY Referrals / Follow Up: Waqas Palma MD [Primary Care Provider] - Within 1 Week Kayla,MD Luis Fernando [Med Staff - Active Staff] - Within 2 Weeks (Congestive heart failure, new onset A-fib) Goldie Duke MD [Med Staff - Active Staff] - Within 2 Weeks (Recurrent UTI) Disposition Disposition (needs filled in before D/C Order can be placed): Home, Self Care Charges/Coding Visit Charges Inpatient E&M: 92429 Disch Hosp >30min 10/03/24 1040 <Electronically signed by Dedrick Mckeon MD> Cosigner Signature (if applicable): CC: Dr. Dedrick Mckeon MD; Dr. Waqas Palma MD~ Signed [facility] Work Phone: 1(486) 805-926007-03-2025 Discharge summary [facility] Medical Records Department [address] [place] [address] Discharge Summary 10/03/24 1025 MR#: [id number] Acct: [id number] Name: NESTOR MONTES DE OCA I Rep #:[id number] : 1935 89 From: Dedrick Mckeon MD PCP: Dr. Waqas Palma MD Status:ADM I N Location: [place] [address] Providers Date of Admission: 10/01/24 Date of Discharge: 10/03/24 Primary Care Physician: Dr. Waqas Palma MD Reason For Visit: AFIB W/ RVR, [...] mg/mL subcutaneous syringe (Prolia) 60 mg subcut [id number] 09/20/22 premier protein 30 g PO .every [...] (Auto) 73.4 H, Lymph % (Auto) 10.9 L,[place] % (Auto) 10.4 H, Eos % (Auto) [...] Ordering Physician: Dedrick Mckeon Referring Physician: Waqas Palma Performed By: Earline Cosme RDCS Chest CTA 10/02/24 11:00 IMPRESSION: No demonstrated PE, or thoracic aortic aneurysm or dissection Diffuse interstitial edema in both lung melendez with free-flowing bilateral pleural effusions and bibasilar atelectasis consistent with CHF Cardiomegaly with calcified coronary vessels No suspicious adenopathy Degenerative bony changes Diffuse atherosclerosis Reading Location: [id number] D/C Instructions Discharge Diet: 8 Cup Fluid [...] Provider: Dedrick Mckeon Primary Care Provider: Waqas Palma Discharge Orders/Prescriptions Prescriptions: New Eliquis 5 mg [...] Prolia 60 mg/mL syringe 60 mg subcut [id number] premier protein 30 g PO .every other [...] PO DAILY Referrals / Follow Up: Waqas Palma MD [Primary Care Provider] - Within 1 Week KaylaLuis Fernando bermudez MD [Med Staff - Active Staff] - Within 2 Weeks (Congestive heart failure, new onset A-fib) Goldie Duke MD [Med Staff - Active Staff] - Within 2 Weeks (Recurrent UTI) Disposition Disposition (needs filled in before D/C Order can be placed): Home, Self Care Charges/Coding Visit Charges Inpatient E&M: 54697 Disch Hosp >30min 10/03/24 1040 Cosigner Signature (if applicable): CC: Dr. Dedrick Mckeon MD; Dr. Waqas Palma MD~ Signed [facility]07-03-2025 [facility] Medical Records Department [address] [place] [address] Discharge Summary 10/03/24 1025 MR#: [id number] Acct: [id number] Name: NESTOR MONTES DE OCA I Rep #: [id number] : 1935 89 From: Dedrick Mckeon MD PCP: Dr. aWqas Palma MD Status:ADM IN Location: [place] [address] Providers Date of Admission: 10/01/24 Date of Discharge: 10/03/24 Primary Care Physician: Dr. Waqsa Palma MD Reason For Visit: AFIB W/ RVR, [...] mg/mL subcutaneous syringe (Prolia) 60 mg subcut [id number] 09/20/22 premier protein 30 g PO .every [...] Physical Exam Narrative GE (more content not included)...[facility]07-02-2025 Progress note Author Dedrick Mckeon [facility] Note Date/Time October 02, 2024 10:[address] [facility] Medical Records Department [address] [place] [address] Progress Note - Hospitalist 10/02/24729 MR#: [id number] Acct: [id number] Name: NESTOR MONTES DE OCA I Rep #:[id number] : 1935 89 From: Dedrick Mckeon MD PCP: Dr. Waqas Palma MD Status:ADM I N Location: [place] [address] Reason for Visit Reason for Visit: Diagnoses [...] 80.9 H, Lymph % (Auto) 8.3 L, [place] % (Auto) 8.5, Eos % (Auto) 1.1, [...] Sl. Cloudy, Urine pH 6.0, Ur Specific Gilbert 1.015, Urine Protein 30 H, Urine Glucose [...] (Auto) 73.6 H, Lymph % (Auto) 11.2 L,[place] % (Auto) 10.2 H, Eos % (Auto) [...] Follow-up recommended to ensure resolution Reading Location: [id number] Venous Doppler Study 10/01/24 10:56 Interpretation Summary Chronic deep vein thrombosis noted in the left common femoral vein. Deep veins of the right lower extremity are patent and compressible segmentally.There is no evidence of right lower extremity deep vein thrombosis. The bilateral great saphenous veins appear patent and compressible segmentally. Ordering Physician: Renzo Ward Referring Physician: Waqas Palma Performed By: Nola Sol RVT Physical Exam [...] documentation, 36minutes Charges/Coding Visit Charges Inpatient E&M: 90998 Subs Hosp L2 10/02/24 1009 <Electronically signed by Dedrick Mckeon MD> Cosigner Signature (if applicable): CC: ~ Signed [facility] Work Phone: 1(339) 179-485807-02-2025 Radiology Diagnostic study note [facility] Imaging Services [address] [place], [place] [id number] CTA Chest W/WO Contrast MR#: [id number] Acct: [id number] Name: NESTOR MONTES DE OCA Donato Rep #: [id number] : 1935 F 89 From: Salud Chiu MD PCP: Dr. Waqas Palma MD Status: ADM I N Study:CTA Chest W/WO Contrast Date of Exam: 10/02/24 Exam# [id number] Ordering Dr: Leann Mckeon MD PROCEDURE: CTA [...] melendez with free- flowing bilateral pleural effusions, [id number]-right, and bibasilar atelectasis suggesting CHF. There is [...] Degenerative bony changes Diffuse atherosclerosis Reading Location: [facility] CC: Dr. Dedrick Mckeon MD; Dr. Waqas Palma MD ~ Reservation Agent: Signed [facility]07-02-[address] [facility] Medical Records Department [address] [place] [address] Progress Note - Hospitalist 10/02/24 0730 MR#: [id number] Acct: [id number] Name: NESTOR MONTES DE OCA I Rep #:[id number] : 1935 89 From: Dedrick Mckeon MD PCP: Dr. Waqas Palma MD Status:ADM I N Location: [place] [address] Reason for Visit Reason for Visit: Diagnoses [...] 80.9 H, Lymph % (Auto) 8.3 L, [place] % (Auto) 8.5, Eos % (Auto) 1.1, [...] Sl. Cloudy, Urine pH 6.0, Ur Specific Gilbert 1.015, Urine Protein 30 H, Urine Glucose (UA) Normal, Urine Ketones Negative, Urine Occult Blood 10 H, Urine Nitrite Positive H, Urine Bilirubin Negative, Urine Urobilinogen Normal, Ur Leukocyte [id number] H, Urine RBC 0 SEEN, Urine WBC [...] (Auto) 73.6 H, Lymph % (Auto) 11.2 L,[place] % (Auto) 10.2 H, Eos % (Auto) [...] Follow-up recommended to ensure resolution Reading Location: [id number] Venous Doppler Study 10/01/24 10:56 Interpretation Summary Chronic deep vein thrombosis noted in the left common femoral vein. Deep veins of the right lower extremity are patent and compressible segmentally.There is no evidence of right lower extremity deep vein thrombosis. The bilateral great saphenous veins appear patent and compressible segmentally. Ordering Physician: Renzo Ward Referring Physician: Waqas Palma Performed By: Nola Sol RVT Physical Exam [...] documentation, 36minutes Charges/Coding Visit Charges Inpatient E&M: 81607 Subs Hosp L2 10/02/24 1009 Cosigner Signature (if applicable): CC: ~ Signed [facility]07-01-2025 History and physical note Author Dderick Mckeon [facility] Note Date/Time October 01, 2024 1:24p m [facility] Medical Records Department [address] [place] [address] H&P Exam - Hospitalist 10/01/24 1245 MR#: [id number] Acct: [id number] Name: NESTOR MONTES DE OCA I Rep #:[id number] : 1935 89 From: Dedrick Mckeon MD PCP: Dr. Waqas Palma MD Status:ADM I N Location: [place] [address] HPI - General General Date of Admission: [...] dysuria. Admitted tomonitored bed for further management [facility] Medical History Wears hearing aid Wears glasses [...] denosumab 60 mg/mL subcutaneous 60 mg subcut [id number] 09/20/22 Unknown History syringe (Prolia) premier protein [...] 80.9 H, Lymph % (Auto) 8.3 L, [place] % (Auto) 8.5, Eos % (Auto) 1.1, [...] Sl. Cloudy, Urine pH 6.0, Ur Specific Gilbert 1.015, Urine Protein 30 H, Urine Glucose [...] Follow-up recommended to ensure resolution Reading Location: [facility] Assessment & Plan Assessment/Plan (1) Atrial fibrillation [...] Multi Select Codes Visit Charges Visit Charges: 19042 Init Hosp L3 Hospitalists' Procedures Procedures: 81336 Advncd Care Plan 30 Min 10/01/24 1324 <Electronically signed by Dedrick Mckeon MD> Cosigner Signature (if applicable): CC: Dr. Dedrick Mckeon MD; Dr. 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 Medical Records Department [address] [place] [address] Emergency Department Summary 10/01/24 MR#: [id number] Acct: [id number] Name: NESTOR MONTES DE OCA I Rep #:[id number] : 1935 89 From: Renzo Ward MD PCP: Dr. Waqas Palma MD Status:REG E R Location: ED HPI [...] problems with her heart so she states. [facility] Medical History Wears hearing aid Wears glasses [...] denosumab 60 mg/mL subcutaneous 60 mg subcut [id number] 09/20/22 Unknown History syringe (Prolia) premier protein [...] antibiotics. I discussed the patient with the distribution engineering technologist and reviewed the preliminary report. While [...] 80.9 H Lymph % (Auto) 8.3 L [place] % (Auto) 8.5 Eos % (Auto) 1.1 [...] Sl. Cloudy Urine pH 6.0 Ur Specific Gilbert 1.015 Urine Protein 30 H Urine Glucose [...] Follow-up recommended to ensure resolution Reading Location: [facility] Management Discussion w/another healthcare provider: Hospitalist Discharge Plan Dx/Rx/DC Orders Clinical Impression: New onset atrial fibrillation, Congestive heart failure, Atrial fibrillation with RVR, Pleural effusion, bilateral Disposition Disposition: Acute Care Hospital [facility] What to do if you have Problems For any increased pain, shortness of breath, bleeding, nausea or vomiting, chestpain, or any unexpected problems, contact your Primary Care Provider. Call [facility] ([phone]) or report to the closest Emergency Room. Call 911 if necessary. 10/01/24 1247 <Electronically signed by Renzo Ward MD> Cosigner Signature (if applicable): CC: Dr. Waqas Palma MD ~ Signed [facility] Work Phone: 1(237) 769-710607-01-2025 History and physical note Author Dedrick Mckeon [facility] Note Date/Time October 01, 2024 1:24p m [facility] Medical Records Department [address] [place] [address] H&P Exam - Hospitalist 10/01/245 MR#: [id number] Acct: [id number] Name: NESTOR MONTES DE OCA I Rep #:[id number] : 1935 89 From: Dedrick Mckeon MD PCP: Dr. Waqas Palma MD Status:ADM I N Location: [place] [id number] HPI - General General Date of [...] dysuria. Admitted tomonitored bed for further management [facility] Medical History Wears hearing aid Wears glasses [...] denosumab 60 mg/mL subcutaneous 60 mg subcut [id number] 09/20/22 Unknown History syringe (Prolia) premier protein [...] 80.9 H, Lymph % (Auto) 8.3 L, [place] % (Auto) 8.5, Eos % (Auto) 1.1, [...] Sl. Cloudy, Urine pH 6.0, Ur Specific Gilbert 1.015, Urine Protein 30 H, Urine Glucose [...] Follow-up recommended to ensure resolution Reading Location: [id number] Assessment & Plan Assessment/Plan (1) Atrial fibrillation [...] Multi Select Codes Visit Charges Visit Charges: 72590 Init Hosp L3 Hospitalists' Procedures Procedures: 94742 Advncd Care Plan 30 Min 10/01/24 1324 <Electronically signed by Dedrick Mckeon MD> Cosigner Signature (if applicable): CC: Dr. Dedrick Mckeon MD; Dr. Waqas Palma MD~ Signed [facility] Work Phone: 1(426) 795-164907-01-2025 History and physical note [facility] Medical Records Department [address] [place] [address] H&P Exam - Hospitalist 10/01/24 1245 MR#: [id number] Acct: [id number] Name: NESTOR MONTES DE OCA I Rep #:[id number] : 1935 89 From: Dedrick Mckeon MD PCP: Dr. Waqas Palma MD Status:ADM I N Location: [place] [address] HPI - General General Date of Admission: [...] dysuria. Admitted tomonitored bed for further management [facility] Medical History Wears hearing aid Wears glasses [...] denosumab 60 mg/mL subcutaneous 60 mg subcut [id number] 09/20/22 Unknown History syringe (Prolia) premier protein [...] 80.9 H, Lymph % (Auto) 8.3 L, [place] % (Auto) 8.5, Eos % (Auto) 1.1, [...] Sl. Cloudy, Urine pH 6.0, Ur Specific Gilbert 1.015, Urine Protein 30 H, Urine Glucose (UA) Normal, Urine Ketones Negative, Urine Occult Blood 10 H, Urine Nitrite Positive H, Urine Bilirubin Negative, Urine Urobilinogen Normal, Ur Leukocyte [id number] H, Urine RBC 0 SEEN, Urine WBC [...] Follow-up recommended to ensure resolution Reading Location: [facility] Assessment & Plan Assessment/Plan (1) Atrial fibrillation [...] Multi Select Codes Visit Charges Visit Charges: 45770 Init Hosp L3 Hospitalists' Procedures Procedures: 55546 Advncd Care Plan 30 Min 10/01/24 1324 Cosigner Signature (if applicable): CC: Dr. Dedrick Mckeon MD; Dr. Waqas Palma MD~ Signed [facility]07-01-[address] [facility] Medical Records Department [address] [place] [address] Emergency Department Summary 10/01/24 MR#: [id number] Acct: [id number] Name: NESTOR MONTES DE OCA I Rep #:[id number] : 1935 89 From: Renzo Ward MD PCP: Dr. Waqas Palma MD Status:REG E R Location: ED HPI [...] problems with her heart so she states. [facility] Medical History Wears hearing aid Wears glasses [...] denosumab 60 mg/mL subcutaneous 60 mg subcut [id number] 09/20/22 Unknown History syringe (Prolia) premier protein [...] antibiotics. I discussed the patient with the distribution engineering technologist and reviewed the preliminary report. Whileclyde [...] 80.9 H Lymph % (Auto) 8.3 L [place] % (Auto) 8.5 Eos % (Auto) 1.1 [...] Sl. Cloudy Urine pH 6.0 Ur Specific Gilbert 1.015 Urine Protein 30 H Urine Glucose [...] Follow-up recommended to ensure resolution Reading Location: [id number] Management Discussion w/another healthcare provider: Hospitalist Discharge Plan Dx/Rx/DC Orders Clinical Impression: New onset atrial fibrillation, Congestive heart failure, Atrial fibrillation with RVR, Pleural effusion, bilateral Disposition Disposition: Acute Care Hospital [facility] What to do if you have Problems For any increased pain, shortness of breath, bleeding, nausea or vomiting, chestpain, or any unexpected problems, contact your Primary Care Provider. Call [facility] ([phone]) or report tothe closest Emergency Room. Call 911 if necessary. 10/01/24 1247 Cosigner Signature (if applicable): CC: Dr. Waqsa Palma MD ~ Signed [facility]07-01-2025 Radiology Diagnostic study note [facility] Imaging Services [address] [place], [place] [address] Chest 1 View (Portable) MR#: [id number] Acct: [id number] Name: NESTOR MONTES DE OCA I Rep #: [id number] : 1935 F 89 From: Salud Chiu MD PCP: Dr. Waqas Palma MD Status: REG E R Study:Chest 1 View (Portable) Date of Exam: 10/01/24 Exam# [id number] Ordering Dr: Renzo Ward MD PROCEDURE: CHEST [...] Follow-up recommended to ensure resolution Reading Location: [id number] CC: Dr. Renzo Ward MD; Dr. 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 July 22, 2024 3:13pm Lymphedema chronic July 22, 20 25 3:13pm Mass of left kidney chronic July 22, 2024 3:13pm Sebaceous cyst of left axilla acute August 01, 2024 8:42am Acute cystitis acute October 01, 2024 1:06pm Atrial fibrillation with RVR acute October 01, 2024 1:06pm Congestive heart failure acute Zuri 1st, 2025 1:06pm New onset atrial fibrillation acute October 01, 2024 1:06pm Pleural effusion, bilateral acute October 01, 2024 1:06pm [facility] Work Phone: 1(628) 313-532204-21-2025 Evaluation note* Diagnosis Onset Date Resolution Status [...] effusion, bilateral resolved October 01, 2024 1:06pm [facility] Work Phone: 1(489) 585-258001-13-2025 Evaluation note* Diagnosis Onset Date Resolution Status Admit Date 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 Alonzo John MD Status: [...] please fell free to call me at [phone]. Thank you for the referral of this patient. Sincerely, DION Bentley/MITZI Hernández <Electronically signed by Sherry ASHLEY/MITZI Hernández> 02/10/23 1046 CC: Dr. Alonzo John MD; Dr. Waqas Palma MD ~ MK Signed [facility] Work Phone: Evaluation noteNo assessment information available [facility] Work Phone: Evaluation note* Diagnosis Onset Date Resolution Status Abnormal ultrasound of breast acute Thickening of skin of breast acute [facility] Work Phone: Evaluation note* Diagnosis Onset Date Resolution Status Abnormal ultrasound of breast acute Thickening of skin of breast acute Axillary lymphadenopathy acu te Breast mass, left acute Thickening of skin of breast acute [facility] Work Phone: Evaluation note* Diagnosis Onset Date Resolution Status Abnormal ultrasound of breast acute Thickening of skin of breast acute Axillary lymphadenopathy acu te Breast mass, left acute Thickening of skin of breast acute 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 [facility] Work Phone: Evaluation note* Diagnosis Onset Date Resolution Status Axillary lymphadenopathy res olved Thickening of skin of breast resolved 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 Mass of left kidney acute 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 Axillary lymphadenopathy res olved S/P left mastectomy acute [facility] Work Phone: Evaluation note* Diagnosis Onset Date [...] left breast acute S/P left mastectomy acute [facility] Work Phone: Evaluation note* Diagnosis Onset Date [...] breast chronic Mass of left kidney chronic [facility] Work Phone: Evaluation note* Diagnosis Onset Date Resolution Status Lymphedema acute Osteopenia after menopause a cute 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 left kidney chronic 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 [facility] Work Phone: Evaluation note* Diagnosis Onset Date Resolution Status 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 [facility] Work Phone: Evaluation note* Diagnosis Onset Date Resolution Status 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 Lymphedema acute 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 left kidney 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 c hronic [facility] Work Phone: Progress note Author Alonzo John [facility] Services Note Date/Time January 13, 2025 4 :18pm [facility] [address] [place] [address] OFFICE VISIT Date of Service: 01/13/25 1541 MR#: [id number] Acct: [id number] Name: NESTOR MONTES DE OCA I Rep #: [id number] : 1935 From: Alonzo John MD Age/Sex: 89/F Location: [facility] Status: Signed HPI Subjective Date of Service [...] biopsy of left breast nodule at 2 o'clockposition and left axillary node on 10/01/2021. Pathology [...] back pain, taking Tylenol with no improvement. [facility] Medical History Pleural effusion Atrial fibrillation with [...] patient in pain?: No Allergies sulfamethoxazole (From Decra) Allergy (Intermediate, Verified 01/13/25 15:46) Dizziness trimethoprim (From Septra) Allergy (Intermediate, Verified 01/13/25 15:46) Dizziness Penicillins (PCN) Allergy (Verified 01/13/25 15:46) Swelling erythromycin base Adverse Reaction (Verified 01/13/25 15:46) Nausea Medications ?Medication ?Instructions ?Recorded ?Confirmed ?Type cholecalciferol (vitamin D3) 50 2,000 unit PO DAILY COTTRELL PPLEMENT 03/05/20 01/13/25 History mcg (2,000 unit) capsule cranberry extract-vitamin C 250 2 ea PO DAILY [facility] 03/05/20 01/13/25 History mg-60 mg capsule anastrozole 1 mg tablet 1 mg PO DAILY #90 tabs 07/2201/13/25 Rx diphenhydramine HCl 25 mg tablet 25 mg PO QHS PRN fatou rgy symptoms 07/22/24 01/13/25 History (Benadryl Allergy) omeprazole 20 mg capsule,delayed 20 mg PO QHS 10/01/24 01/13/25 History release oxybutynin chloride 5 mg 5 mg PO DAILY 10/01/2401/13 History tablet,extended release 24 hr furosemide 40 mg tablet (Lasix) 40 mg PO DAILY #30 tab s 10/03/24 01/13/25 Rx apixaban 5 mg tablet (Eliquis) 5 mg PO BID #60 tabs 01/13/25 Rx metoprolol tartrate 50 mg tablet 50 mg PO BID 10/30/24 01/13/25 History ivcirhcm-ocjr-twmu 8 mg-folic 400 1 tab PO QDAY 01/13/25 History mcg-K 50 mcg-lutein 300 mcg tablet (Centrum Silver Women) potassium chloride 20 mEq 20 meq PO DAILY #90 tabs 01/13/25 Rx tablet,extended release(part/cryst) Have you fallen in the past year?: No Central Venous Access Central Venous Access: No Exam Physical Exam Narrative Elderly woman Const alert, oriented x3 and no apparent distress HEENT normocephalic, external ears normal and external nose normal Eyes no scleral icterus Neck supple Lymph Lymphatic: no lymphadenopathy noted Chest Chest Narrative: R breast with nipple normal. L mastectomy scar, has slight edema L arm and armpit. + small skin nodule L armpit. Resp normal respiratory effort and clear to auscultation bilaterally Cardio regular rate, regular rhythm, S1 normal heart sound and S2 normal heart sound Back/Spine thoracic and lumbar spine normal to inspection Extremity no clubbing, cyanosis or edema Skin no rashes or lesions noted Neuro oriented x3, CN's II-XII intact bilaterally and moves all extremities Coding Level of Care Code Off vis,est,level 4 Exam Problem Focused Diagnoses Invasive ductal carcinoma of left breast C50.912 Mass of left kidney N28.89 Lymphedema I89.0 Midline thoracic back pain, unspecified chronicity M54.6 Back pain location: thoracic back pain Chronicity: unspecified Back pain laterality: midline Assessment and Plan Assessment and Plan (1) Invasive ductal carcinoma of left breast: Status: Inactive Comment: L breast cancer invasive ductal type, grade 2/3, ER/NH positive, Her2 negative, Ki67 55%, multifocal disease with L axillary metastasis-Locally advanced disease. S/P L mastectomy and axillary node dissection on 01/04/2022, Pathology shows Tumor size 3cm, margins negative, Lymph nodes 19 positive-pT2 pN3. Prognostic stage IIIC(pT2 pN3 pM0). PET/CT on 02/23/2022 showed no hypermetabolic activity suggestive of metastatic disease, bilateral subscapularis muscle activities. S/P adjuvant radiation therapy to L anterior chest. Bone density shows osteopenia. Started Anastrozole on 05/30/2022. Comes for follow up. Labs reviewed, WNL. Tolerating therapy. Plan: To continue Anastrozole 1mg daily. To obtain Bone density. RTC 24 weeks. (2) Mass of left kidney: Status: Chronic Comment: Pt had a L kidney simple cyst around 2011 but now has developed a complex cyst. Seen by Dr. Bennett and he suggested observation. Plan: To continue observation. (3) Lymphedema: Status: Inactive Comment: L arm improving. Due to L breast and axillary surgery, Plan: To continue PT for Lymphedema management. (4) Back pain: Status: Acute Qualifiers: Back pain location: thoracic back pain Chronicity: unspecified Back pain laterality: midline Qualified Code(s): M54.6 - Pain in thoracic spine Comment: Mid back/ lower thoracic area. Plan: To obtain Bone density and Bone scan Plan Details Follow Up: 4 Weeks Clinical Quality Measures Falls Risk Screening/Assistive Devices Have you fallen in the past year?: No 01/13/25 8787 <Electronically signed by Alonzo Noriega> Date _ Alonzo John MD [facility] Signature: Date (if applicable) CC: Dr. Waqas Palma MD ~ [facility] [employer] Work Phone: Reason for referral (narrative)No reason for referral information availableWCleveland [facility] Work Phone: Summary Purpose Family History [...] Will No March 05 4:05pm Power of Car Designer No March 05, 2020 4:05pm Advance Directive Response Recorded Date/ Time Living Will No October 11, 2021 5:00pm Power of Car Designer No October 11 5:00pm Advance Directive Response Recorded Date/ Time Living Will No January 04 11:52am Power of Car Designer No January 04 11:52am Advance Directive Response Recorded Date/ Time Living Will No January 04 10:52am Power of Car Designer No January 04 10:52am Advance Directive Response Recorded Date/ Time Living Will No January 04 11:52am Do you have a Healthcare Power of Car Designer? No January 04, 2022 11:52am Advance Directive Response Recorded Date/ Time Living Will No January 04 11:52am Do you have a Healthcare Pow er of Car Designer? No January 04, 2022 11:52am Do you have a Healthcare Pow er of Car Designer? Yes October 01, 2024 10:42am Name of Medical Power of Car Designer daughter cassius urbano October 01, 2024 10:42am Advance Directive Response Recorded Date/ Time Living Will No January 04 11:52am Do you have a Healthcare Pow er of Car Designer? No January 04, 2022 11:52am Do you have a Healthcare Pow er of Car Designer? Yes October 01, 2024 3:30pm Name of Medical Power of Car Designer daughter cassius urbano October 01, 2024 10:42am Advance Directive Response Recorded Date/ Time Do you have a Healthcare Pow er of Car Designer? Yes October 01, 2024 3:30pm Name of Medical Power of Car Designer daughter cassius urbano October 01, 2024 10:42am [...] 3pm Sebaceous cyst of left axilla August 01, 2 025 8:42am Acute cystitis October 01, 2024 [...] CHF October 03, 2024 10:25 am S/P [facility] 10/03October 30, 2024 1:17 pm Reason for Visit Admit Date Skin nodule July 22, 2024 3:1 3pm Mass of left kidney July 22, 2024 3:1 3pm Numbness and tingling in left hand July 22, 2024 3:13pm Invasive ductal carcinoma of left breast July 22, 2024 3:13pm Lymphedema July 22, 2024 3:1 3pm Sebaceous cyst of left axilla August 01, 025 8:42am Congestive heart failure October 01, [...] CHF October 03, 2024 10:25 am S/P [facility] 10/03October 30, 2024 1:17 pm Reason for Visit Admit Date Sebaceous cyst of left axilla August 01 025 8:42am Congestive heart failure October 01, [...] CHF October 03, 2024 10:25 am S/P [facility] 10/03October 30, 2024 1:17 pm SCREENING November 28, 2024 12 :25pm Reason for Visit Admit Date Congestive heart failure October 01, 2024 1:06pm New onset atrial fibrillation October 01, 2024 1:06pm Acute cystitis October 01, 2024 1:06p m Atrial fibrillation with RVR October 01 2 025 1:06pm Pleural effusion, bilateral October 01 1:06pm Atrial fibrillation with RVR October 30, 2024 1:17pm Congestive heart failure October 30, 2024 1:17pm HTN (hypertension) October 30, 2024 1:17 pm Chief Complaint Admit Date AFIB W/ RVR, CHF October 01, 2024 1:06p m AFIB W/ RVR, CHF October 02, 2024 7:30a m AFIB W/ RVR, CHF October 03, 2024 10:25 am S/P [facility] 10/03October 30, 2024 1:17 pm SCREENING November 28, 2024 12 :25pm [facility] January 13, 2025 3 :05pm Prolia January 13, 2025 3 :15pm screening January 16, 2025 7 :42am Personal history of malignant neoplasm o f breast January 21, 2025 7:51am Reason for Visit Admit Date Congestive heart failure October 01, 2024 1:06pm New onset atrial fibrillation October 01, 2024 1:06pm Acute cystitis October 01, 2024 1:06p m Atrial fibrillation with RVR October 01 025 1:06pm Pleural effusion, bilateral October 01 1:06pm Atrial fibrillation with RVR October 30, 2024 1:17pm Congestive heart failure October 30, 2024 1:17pm HTN (hypertension) October 30, 2024 1:17 pm Back pain January 13, 2025 3 :05pm Mass of left kidney January 13, 2025 3 :05pm Invasive ductal carcinoma of left breast January 13, 2025 3:05pm Lymphedema January 13, 2025 3 :05pm Additional Source Comments INFORMATION SOURCE (unrecogn ized section and content) DATE CREATED AUTHOR 09/27/2017 [facility] DATE CREATED AUTHOR AUTHOR'S ORGANIZ ATION 02/01/2025 [facility] Source Comments (unrecognize d section and content) In the event this informatio n is protected by the Federal Confidentiality of Alcohol and Drug Abuse Patient Records regulations: The Federal rules restrict any use of the information to criminally investigate or prosecute any alcohol or drug abuse patient.[facility] the event this information is protected by the Federal Confidentiality of Alcohol and Drug Abuse Patient Records regulations: The Federal rules restrict any use of the information to criminally investigate or prosecute any alcohol or drug abuse patient.[facility] Goals (unrecognized section and content) Goals [...] Active Member Role Status Dates Dr. Waqas Palma MD Family Provider Active Dr. Waqas Palma MD Primary Care Provider Active Team Status: Inactive Member Role Status Dates Dr. Waqas Palma MD Primary Care Provider Active Dr. Robinson Yepez DO Attending Provider, Referring P rovider Active Team Status: Inactive Member Role Status Dates Dr. Waqas Palma MD Primary Care Provider, Referring Provider Active Dr. Alonzo John MD Attending Provider Active Team Status: Inactive Member Role Status Dates Dr. Waqas Palma MD Primary Care Provider, Referring Provider Active Dr. Robinson Yepez DO Attending Provider Active Team Status: Active Member Role Status Dates Dr. Waqas Palma MD Primary Care Provider Active Dr. Alonzo John MD Referring Provider Active Dr. Robinson Yepez DO Attending Provider Active Team Status: Active Member Role Status Dates Dr. Waqas Palma MD Primary Care Provider Active Dr. Alonzo John MD Attending Provider, Referring Pro vider Active Team Status: Inactive Member Role Status Dates Dr. Waqas Palma MD Primary Care Provider Active Dr. Kelly Mcrae MD Attending Provider, Referring P rovider Active Team Status: Inactive Member Role Status Dates Dr. Waqas Palma MD Primary Care Provider, Attending Provider Active Team Status: Inactive Member Role Status Dates Dr. Waqas Palma MD Primary Care Provider Active Dr. Alonzo John MD Attending Provider, Referring Pro vider Active Team Status: Inactive Member Role Status Dates Dr. Waqas Palma MD Primary Care Provi crystal, Attending Provider, Referring Provider Active Team Status: Inactive Member Role Status Dates Dr. Waqas Palma MD Primary Care Provider Active Start: April 15, 2024 End: April 15, 2024 Dr. Robinson Yepez DO Attending Provider Active Start: April 15, 2024 End: April 15, 2024 Team Status: Inactive Member Role Status Dates Dr. Waqas Palma MD Primary Care Provider Active Start: July 15, 2024 End: July 15, 2024 Dr. Waqas Palma MD Attending Provider Active Start: July 15, 2024 End: July 15, 2024 Dr. Waqas Palma MD Referring Provider Active Start: July 15, 2024 End: July 15, 2024 Team Status: Active Member Role/Relationship Status Dates Dr. Waqas Palma MD Primary Care Provider Active Team Status: Inactive Member Role/Relationship Status Dates Dr. Waqas Palma MD Primary Care Provider Active Start: July 15, 2024 End: July 15, 2024 Dr. Waqas Palma MD Attending Provider Active Start: July 15, 2024 End: July 15, 2024 Dr. Waqas Palma MD Referring Provider Active Start: July 15, 2024 End: July 15, 2024 Team Status: Inactive Member Role/Relationship Status Dates Dr. Waqas Palma MD Primary Care Provider Active Start: July 22, 2024 End: July 22, 2024 Dr. Waqas Palma MD Referring Provider Active Start: July 22, 2024 End: July 22, 2024 Dr. Alonzo John MD Attending Provider Active S tart: July 22, 2024 End: July 22, 2024 Team Status: Active Member Role/Relationship Status Dates Dr. Waqas Palma MD Primary Care Provider Active Start: July 22, 2024 Dr. Alonzo John MD Referring Provider Active S tart: July 22, 2024 Dr. Robinson Yepez DO Attending Provider Active Start: July 22, 2024 Team Status: Inactive Member Role/Relationship Status Dates Dr. Waqas Palma MD Primary Care Provider Active Start: August 01, 2024 End: August 01, 2024 Dr. Waqas Palma MD Referring Provider Active Start: August 01, 2024 End: August 01, 2024 Dr. Zahida Arroyo MD Attending Provider Active Start: August 01, 2024 End: August 01, 2024 Team Status: Active Member Role/Relationship Status Dates Dr. Waqas Palma MD Primary Care Provider Active Start: October [...] Active Member Role/Relationship Status Dates Dr. Waqas Palma MD Primary Care Provider Active Start: October 01, 2024 Dr. Bruce De Jesus MD Attending Provider Active S tart: October 01, 2024 Team Status: Inactive Member Role/Relationship Status Dates Dr. Waqas Palma MD Primary Care Provider Active Start: October [...] Active Member Role/Relationship Status Dates Dr. Waqas Palma MD Primary Care Provider Active Start: October 02, 2024 Dr. Maame Damon MD Attending Provider Active Start: October 02, 2024 Team Status: Active Member Role/Relationship Status Dates Dr. Waqas Palma MD Primary Care Provider Active Start: October [...] Active Member Role/Relationship Status Dates Dr. Waqas Palma MD Primary Care Provider Active Start: October [...] Active Member Role/Relationship Status Dates Dr. Waqas Palma MD Primary Care Provider Active Start: October 01, 2024 Dr. Bruce De Jesus MD Attending Provider Active S tart: October 01, 2024 Renzo Ward MD Referring Provider Active Star t: October 01, 2024 Team Status: Inactive Member Role/Relationship Status Dates Dr. Waqas Palma MD Primary Care Provider Active Start: October 30, 2024 End: October 30, 2024 Dr. Waqas Palma MD Referring Provider Active Start: October 30, 2024 End: October 30, 2024 Dr. Luis Fernando Garza MD Attending Provider Active S tart: October 30, 2024 End: October 30, 2024 Team Status: Inactive Member Role/Relationship Status Dates Dr. Waqas Palma MD Primary Care Provider Active Start: August 01, 2024 End: August 01, 2024 Dr. Waqas Palma MD Referring Provider Active Start: August 01, 2024 End: August 01, 2024 Dr. Zahida Arroyo MD Attending Provider Active Start: August 01, 2024 End: August 01, 2024 Team Status: Active Member Role/Relationship Status Dates Dr. Waqas Palma MD Primary Care Provider Active Start: October 01, 2024 Dr. Bruce De Jesus MD Attending Provider Active S tart: October 01, 2024 Renzo Ward MD Referring Provider Active Star t: October 01, 2024 Team Status: Inactive Member Role/Relationship Status Dates Dr. Waqas Palma MD Primary Care Provider Active Start: October [...] Active Member Role/Relationship Status Dates Dr. Waqas Palma MD Primary Care Provider Active Start: October 02, 2024 Dr. Maame Damon MD Attending Provider Active Start: October 02, 2024 Team Status: Active Member Role/Relationship Status Dates Dr. Waqas Palma MD Primary Care Provider Active Start: October [...] Active Member Role/Relationship Status Dates Dr. Waqas Palma MD Primary Care Provider Active Start: October [...] Inactive Member Role/Relationship Status Dates Dr. Waqas Palma MD Primary Care Provider Active Start: October 30, 2024 End: October 30, 2024 Dr. Waqas Palma MD Referring Provider Active Start: October 30, 2024 End: October 30, 2024 Dr. Luis Fernando Garza MD Attending Provider Active S tart: October 30, 2024 End: October 30, 2024 Team Status: Active Member Role/Relationship Status Dates Dr. Waqas Palma MD Primary Care Provider Active Start: October 01, 2024 Dr. Bruce De Jesus MD Attending Provider Active S tart: October 01, 2024 Renzo Ward MD Referring Provider Active Star t: October 01, 2024 Team Status: Inactive Member Role/Relationship Status Dates Dr. Waqas Palma MD Primary Care Provider Active Start: October [...] Active Member Role/Relationship Status Dates Dr. Waqas Palma MD Primary Care Provider Active Start: October 02, 2024 Dr. Maame Damon MD Attending Provider Active Start: October 02, 2024 Team Status: Active Member Role/Relationship Status Dates Dr. Waqas Palma MD Primary Care Provider Active Start: October [...] Active Member Role/Relationship Status Dates Dr. Waqas Palma MD Primary Care Provider Active Start: October [...] Inactive Member Role/Relationship Status Dates Dr. Waqas Palma MD Primary Care Provider Active Start: October 30, 2024 End: October 30, 2024 Dr. Waqas Palma MD Referring Provider Active Start: October 30, 2024 End: October 30, 2024 Dr. Luis Fernando Garza MD Attending Provider Active S tart: October 30, 2024 End: October 30, 2024 Team Status: Inactive Member Role/Relationship Status Dates Dr. Waqas Palma MD Primary Care Provider Active Start: November 28, 2024 End: November 28, 2024 Dr. Robinson Yepez DO Attending Provider Active Start: November 28, 2024 End: November 28, 2024 Dr. Robinson Yepez DO Referring Provider Active Start: November 28, 2024 End: November 28, 2024 Team Status: Active Member Role/Relationship Status Dates Dr. Waqas Palma MD Primary care physician Active Team Status: Active Member Role/Relationship Status Dates Dr. Waqas Palma MD Primary care physician Active Start: October 01, 2024 Dr. Bruce De Jesus MD Attending physician Active Start: October 01, 2024 Renzo Ward MD Referring Provider Active Star t: October 01, 2024 Team Status: Inactive Member Role/Relationship Status Dates Dr. Waqas Palma MD Primary care physician Active Start: October 01, 2024 End: October 03, 2024 Renzo Ward MD Emergency Department Physician Activ e Start: October 01, 2024 End: October 03, 2024 Dr. Dedrick Mckeon MD Admitting physician Active Start: October 01, 2024 End: October 03, 2024 Dr. Dedrick Mckeon MD Attending physician Active Start: October 01, 2024 End: October 03, 2024 Dr. Dedrick Mckeon MD Nurse Practitioner Active Start: October 01, 2024 Team Status: Active Member Role/Relationship Status Dates Dr. Waqas Palma MD Primary care physician Active Start: October 02, 2024 Dr. Maame Damon MD Attending physician Active Start: October 02, 2024 Team Status: Active Member Role/Relationship Status Dates Dr. Waqas Palma MD Primary care physician Active Start: October 02, 2024 Renzo Ward MD Emergency Department Physician Activ e Start: October 02, 2024 Dr. Dedrick Mckeon MD Admitting physician Active Start: October 02, 2024 Dr. Dedrick Mckeon MD Attending physician Active Start: October 02, 2024 Dr. Dedrick Mckeon MD Nurse Practitioner Active Start: October 02, 2024 Team Status: Active Member Role/Relationship Status Dates Dr. Waqas Palma MD Primary care physician Active Start: October 03, 2024 Renzo Ward MD Emergency Department Physician Activ e Start: October 03, 2024 Dr. Dedrick Mckeon MD Admitting physician Active Start: October 03, 2024 Dr. Dedrick Mckeon MD Attending physician Active Start: October 03, 2024 Dr. Dedrick Mckeon MD Nurse Practitioner Active Start: October 03, 2024 Team Status: Inactive Member Role/Relationship Status Dates Dr. Waqas Palma MD Primary care physician Active Start: October 30, 2024 End: October 30, 2024 Dr. Waqas Palma MD Referring Provider Active Start: October 30, 2024 End: October 30, 2024 Dr. Luis Fernando Garza MD Attending physician Active Start: October 30, 2024 End: October 30, 2024 Team Status: Inactive Member Role/Relationship Status Dates Dr. Waqas Palma MD Primary care physician Active Start: November 28, 2024 End: November 28, 2024 Dr. Robinson Yepez DO Attending physician Active Start: November 28, 2024 End: November 28, 2024 Dr. Robinson Yepez DO Referring Provider Active Start: November 28, 2024 End: November 28, 2024 Team Status: Inactive Member Role/Relationship Status Dates Dr. Waqas Palma MD Primary care physician Active Start: January 13, 2025 End: January 13, 2025 Dr. Waqas Palma MD Referring Provider Active Start: January 13, 2025 End: January 13, 2025 Dr. Alonzo John MD Attending physician Active Start: January 13, 2025 End: January 13, 2025 Team Status: Active Member Role/Relationship Status Dates Dr. Waqas Palma MD Primary care physician Active Start: January 13, 2025 Dr. Alonzo John MD Referring Provider Active S tart: January 13, 2025 Dr. Robinson Yepez DO Attending physician Active Start: January 13, 2025 Team Status: Active Member Role/Relationship Status Dates Dr. Waqas Palma MD Primary care physician Active Start: January 16, 2025 Dr. Alonzo John MD Attending physician Active Start: January 16, 2025 Dr. Alonzo John MD Referring Provider Active S tart: January 16, 2025 Team Status: Active Member Role/Relationship Status Dates Dr. Waqas Palma MD Primary care physician Active Start: January 21, 2025 Dr. Alonzo John MD Attending physician Active Start: January 21, 2025 Dr. Alonzo John MD Referring Provider Active S tart: January 21, 2025 FOR RECORDS PERTAINING TO PATIENTS WHO ARE [...] BE BASED ON THE PRIMARY CLINICAL RECORDS. [facility]. provides no warranty or guarantee of the accuracy or completeness of information in this document.
== END | disposition home or self-care (01) ==
LOC: MTLAB 16:12
PROVIDERS: PCP Family Medicine; Referring Provider Family Medicine; Visit Provider Family Medicine
DX: M79.89 Other specified soft tissue disorders (principal)
CPT/HCPCS: 36415; 80048; 83880

== ENCOUNTER 2025-03-06 12:50 | Inpatient (IN) | payer MEDICARE, SELFPAY ==
[2025-03-06] VITALS (11 sets, daily range): BP systolic 91–122; BP diastolic 68–89; PULSE 56–120; RESP 16–35; TEMP 36.4–36.6; O2SAT 95–100; BMI 34.9; BMI 34.3
--- NOTE | 2025-03-06 13:20 | EKG12_ITS ---
Test Reason : Blood Pressure : */* mmHG Vent. Rate : 115 BPM Atrial Rate : * BPM P-R Int : * ms QRS Dur : 80 ms QT Int : 344 ms P-R-T Axes : * 112 -51 degrees QTcB Int : 475 ms Atrial fibrillation with rapid ventricular response Right axis deviation Low voltage QRS Nonspecific T wave abnormality Abnormal ECG Confirmed by YOLANDE KINNEY, MARLI ([id number]), brands editor KRIS MELLO ([id number]) on 03/07/2025 9:13:03 AM Referred By: Confirmed By: MARLI LANIER MD
--- NOTE | 2025-03-06 13:21 | EX.ED.DYSGE1 ---
HPI History of Present Illness Chief Complaint: Abn Labs Informant: patient and family (Accompanied by her daughter) Onset/Context/Timing Onset: Days Context: Gradual Onset Timing: Continuous Current Severity: Moderate Maximum Severity: Moderate Narrative Narrative: 89-year-old female history of A-fib on Eliquis, CHF, hypertension, chronic kidney disease. Saw her primary care physician on Monday increased her Lasix to twice daily. Did screening labs labs came back yesterday showed hyperkalemia she was told to go to the emergency department. Since she has been feeling well she has had increased swelling of both lower extremities. Generalized weakness. She lives with her daughter and son-in-law. She denies any vomiting or diarrhea. No dysuria. No fever. October she was admitted for CHF. Prior similar symptoms: Yes Recent Illness/Hospitalization: No PFSH PFS Medical History Pleural effusion Atrial fibrillation with RVR Congestive heart failure New onset atrial fibrillation Mass of left kidney Breast cancer Carpal tunnel syndrome of left wrist DVT (deep venous thrombosis) GERD (gastroesophageal reflux disease) Arthritis HTN (hypertension) Home Medications ?Medication ?Instructions ?Recorded ?Last Taken ?Type cholecalciferol (vitamin D3) 50 2,000 unit PO DAILY SUPPLEMENT 03/05/20 01/03/22 History mcg (2,000 unit) capsule cranberry extract-vitamin C 250 2 ea PO DAILY URINARY HEALTH 03/05/20 01/03/22 History mg-60 mg capsule diphenhydramine HCl 25 mg tablet 25 mg PO QHS PRN allergy symptoms 07/22/24 Unknown History (Benadryl Allergy) omeprazole 20 mg capsule,delayed 20 mg PO QHS 10/01/24 Unknown History release oxybutynin chloride 5 mg 5 mg PO DAILY 10/01/24 Unknown History tablet,extended release 24 hr apixaban 5 mg tablet (Eliquis) 5 mg PO BID #60 tabs 10/30/24 Unknown Rx pdiywtld-wlpz-wtgn 8 mg-folic 400 1 tab PO QDAY 10/30/24 Unknown History mcg-K 50 mcg-lutein 300 mcg tablet (Centrum Silver Women) potassium chloride 20 mEq 20 meq PO DAILY #90 tabs 11/26/24 Unknown Rx tablet,extended release(part/cryst) furosemide 40 mg tablet (Lasix) 20 mg PO BID 01/30/25 Unknown History metoprolol tartrate 50 mg tablet 50 mg PO BID 01/30/25 Unknown History spironolactone 25 mg tablet 25 mg PO QDAY 01/30/25 Unknown History tamoxifen 20 mg tablet 20 mg PO QDAY 90 days #90 tabs 01/30/25 Unknown Rx tramadol 50 mg tablet 25 mg PO QHS PRN pain 01/30/25 Unknown History Allergy/AdvReac Type Severity Reaction Status Date / Time sulfamethoxazole (From Allergy Intermediate Dizziness Verified 03/06/25 12:53 Septra) trimethoprim (From ) Allergy Intermediate Dizziness Verified 03/06/25 12:53 Penicillins (PCN) Allergy Swelling Verified 03/06/25 12:53 erythromycin base AdvReac Nausea Verified 03/06/25 12:53 Family History Mother Myocardial infarction Diabetes Father Myocardial infarction Diabetes Sister Colon cancer Aunt Cancer Breast Surgical History History of left mastectomy Hx of knee surgery History of lymph node biopsy (~10/2021) History of breast biopsy (~10/2021) History of History of lumpectomy of left breast History of hysterectomy Social History household members: spouse and other details: daughter and son-in-law, grandchildren housing: house Smoking Status: Never smoker alcohol intake: current alcohol intake frequency: a few times a week Alcohol type: wine what type of physical activity do you participate in: none do you feel safe at home: Yes ROS ROS ED ROS Narrative Generalized weakness. Bilateral lower extremity swelling. Weight gain. Constitutional Constitutional ED: Denies chills or fever(s) Eyes Eyes: Denies blurry vision ENT ENT ED: Denies ear pain Cardiovascular Cardiovascular: Denies chest pain Respiratory/Chest Respiratory/Chest: Reports dyspnea and dyspnea on exertion; Denies cough Gastrointestinal Gastrointestinal: Denies abdominal pain Genitourinary Genitourinary ED: Denies dysuria or hematuria Musculoskeletal Musculoskeletal: Denies arthralgias Integumentary Denies abscess Neurologic Neurologic: Denies headache(s) Endocrine Endocrinology: Denies cold intolerance Hematologic/Lymphatic Hematologic/Lymphatic: Reports none Allergic/Immunologic Allergic/Immunologic ED: Denies mouth swelling, tongue swelling or urticaria EXAM Physical Exam Narrative Exam Narrative: Trudy female sitting upright in bed family at bedside. Vital signs stable and she is in A-fib RVR rate of about 120. Pulse ox 95% on room air no hypoxia. H EENT exam pupils round react light. Moist mucous membranes. Neck nontender no JVD. Lungs clear to auscultation bilaterally. Heart tachycardic 120 appears to be A-fib RVR to monitor. Chest wall ribs nontender. Abdomen soft nontender. Moving all 4 extremities. Normal manager training and development strength. Normal dorsi plantarflexion. 2+ pitting edema both lower extremities. Neurologically she is awake alert. Answering questions and following commands. Const Vital Signs: 03/06/25 12:51 03/06/25 13:02 03/06/25 13:40 Temperature 97.9 F Temperature Source Oral Pulse Rate 113 H 120 H Respiratory Rate 18 16 Respiratory Effort Normal Non-Labored Respiratory Pattern Normal Normal Blood Pressure 100/75 Blood Pressure Mean 83 Pulse Ox 95 Oxygen Delivery Method Room Air 03/06/25 13:49 03/06/25 14:48 Temperature Temperature Source Pulse Rate 59 L Respiratory Rate 19 H Respiratory Effort Respiratory Pattern Blood Pressure 97/72 Blood Pressure Mean 80 Pulse Ox 95 Oxygen Delivery Method Room Air Room Air MDM MDM MDM Narrative Medical decision making narrative: 89-year-old female increasing lower extremity swelling secondary to CHF. She is currently in A-fib RVR which will be treated with IV Cardizem. She undergo cardiac workup. She will need to be admitted for A-fib RVR, CHF worsening lower extremity edema and generalized weakness. Repeat exam around 3:52 PM patient doing well. Being treated for hyperkalemia with aerosols, calcium gluconate, insulin and glucose. Hospitalist on page for admission. Discussed test results and plan with the patient and her daughter they are comfortable with the admission. History & Record Review Discussion w/independent historian: Patient and Family Additional record(s) reviewed:: Prior inpatient record, Prior outpatient record, Prior ED visit and Prior labs Lab Data Attestation: I reviewed the patient's lab results. Lab results narrative: CBC shows a white count of 5 H&H 14 and 45. Platelets 201. BNP is elevated 14,402. Electrolytes show potassium 6.1. Being treated for hyperkalemia. Anion gap 16. BUN and creatinine of 63 and 2.28. Patient has chronic kidney disease this is worse. Glucose on 100. Initial troponin 47. Chest x-ray bilateral pleural effusions worse on the left. Labs: Laboratory Results - last 24 hr 03/06/25 03/06/25 13:40 15:11 WBC 5.3 RBC 4.68 Hgb 14.0 Hct 45.2 MCV 96.6 MCH 29.9 MCHC 31.0 L RDW Std Deviation 64.8 H RDW Coeff of Kierra 18.6 H Plt Count 201 MPV 11.9 Immature Gran % (Auto) 0.400 Neut % (Auto) 74.4 H Lymph % (Auto) 9.5 L [place] % (Auto) 12.5 H Eos % (Auto) 2.1 Baso % (Auto) 1.1 H Absolute Neuts (auto) 3.9 Absolute Lymphs (auto) 0.50 L Nucleated RBC % 0.6 Sodium Cancelled 135 Potassium Cancelled 6.1 H* Chloride Cancelled 103 Carbon Dioxide Cancelled 16.1 L Anion Gap Cancelled 16 H BUN Cancelled 63 H Creatinine Cancelled 2.28 H Estim Creat Clear Calc 15.18 L Est GFR (MDRD) Non-Af Cancelled 20 L BUN/Creatinine Ratio Cancelled 27.6 H Glucose Cancelled 100 H Calcium Cancelled 10.5 Troponin T High Sens Cancelled 47 [place] [address] H Radiography Chest X-Ray - ED: 1 View, Read by ED Physician, Read by Radiologist, Heart, Lungs, Mediastinum, Bony Structures, Chronic Changes, Right Effusion and Left Effusion Diagnostic Testing: Clinical Impression(s) from Imaging Studies Chest X-Ray 03/06/25 14:05 IMPRESSION: Bilateral pleural effusions left greater than right with bibasilar atelectasis and/or infiltrates worse at the left lung base. Reading Location: [facility] Chest x-ray, portable, single view interpreted by myself and the radiologist shows bilateral pleural effusions worse on the left. Moderate to large pleural effusion on the left. Otherwise chronic changes. Patient had effusions in the past Rhythm Strip Rhythm Strip: A-fib Rate: 115 Ectopy: None EKG Initial EKG: Attestation: I personally reviewed and interpreted this EKG as follows: Interpretation: Atrial Fibrillation Comments: Atrial fibrillation rate of 115. A-fib with RVR. No acute signs of MS or ischemia. Discharge Plan Dx/Rx/DC Orders Clinical Impression: Atrial fibrillation with rapid ventricular response, Congestive heart failure, Chronic kidney disease, Acute hyperkalemia, Bilateral pleural effusion, Chronic anticoagulation Disposition Disposition: Acute Care Hospital [facility]
[2025-03-06] MEDS: Albuterol *CONC* 2.5mg/0.5mL VIAL.NEB. 10 MG INHALATION ×2 (13:39→16:39)
[2025-03-06 13:50] LABS: Hematocrit 45.2 % (37-47); Hemoglobin 14.0 g/dL (12.0-15.0); Immature Granulocytes Count 0.020 X10^3/uL (0.0-0.0); Mean Corp Hgb Conc 31.0 g/dL (32-36); Mean Corpuscular Volume 96.6 fL (81-99); Mean Platelet Vol. 11.9 fl (6.2-12.0); NRBC Flagged by Analyzer 0.6 % (0-5); POSITIVE DIFFERENTIAL YES; Platelet Count 201 K/mm3 (150-450); RBC Distribution Width CV 18.6 % (11.6-14.6); RBC Distribution Width SD 64.8 fl (35.1-43.9); Red Blood Count 4.68 M/mm3 (4.2-5.4); White Blood Count 5.3 K/mm3 (4.4-11.0)
[2025-03-06] MEDS: Calcium Gluconate IV 3 GM in Syringe 1 EACH IV (13:53)
--- NOTE | 2025-03-06 14:05 | RAD_ITS ---
PROCEDURE: CHEST 1 VIEW (PORTABLE) 03/06/2025 REASON FOR EXAM: CHEST PAIN TECHNIQUE: Frontal view of the chest. COMPARISON: October 01, 2024. FINDINGS: Hardware: EKG electrodes are seen. Heart: Cardiomegaly. Lungs: Bilateral pleural effusions left greater than right with bibasilar compressive atelectasis and/or infiltrate worse at the left lung base. Bones: Degenerative changes are identified within the thoracic spine. RAD/Chest 1 View (Portable) IMPRESSION: Bilateral pleural effusions left greater than right with bibasilar atelectasis and/or infiltrates worse at the left lung base. Reading Location: [place] [id number]
[2025-03-06 14:40] LABS: Pro- Brain NATRIURETIC PEPTIDE 14402 pg/mL (<=1800)
[2025-03-06 15:40] LABS: Anion Gap 16 (5-15); BUN 63 mg/dL (4-19); BUN/Creat Ratio 27.6 RATIO (10-20); Calcium,Total 10.5 mg/dL (7.6-11.0); Carbon Dioxide 16.1 mmol/L (21.0-32.0); Chloride 103 mmol/L (98-108); Estimated Creatinine Clearance 15.18 ml/min (50-250); Glucose 100 mg/dL (70-99); Potassium 6.1 mmol/L (3.3-5.1); Troponin T High Sensitivity 47 ng/L (<=14)
--- NOTE | 2025-03-06 16:59 | US_ITS ---
PROCEDURE: KIDNEY AND BLADDER 03/06/2025 REASON FOR EXAM: KENNEY TECHNIQUE: Procedure Code: USKI Modality: US Procedure: KIDNEY AND BLADDER COMPARISON: CT Abdomen and Pelvis w/Contrast, 10/18/2021 FINDINGS: RIGHT KIDNEY Size: Normal measuring 10.2 x 4.6 x 4.8 cm. Echogenicity: Normal. Parenchymal thickness: Normal. Hydronephrosis: None. Calculi: None. Cysts: Two adjacent anechoic upper pole cysts, the largest is 2.1 cm. Solid masses: None. LEFT KIDNEY: The left kidney is not visualized, however there are two anechoic cysts in this region measuring 9.8 x 7.9 x 8.6 cm (previously up to 7.3 cm) and 10.9 x 11.4 x 9.9 cm (previous up to 10.8 cm). BLADDER: Mild wall thickening (up to 5.6 mm) with irregular surface. The ureteral jets are not visualized. OTHER: None. US/Kidney and Bladder IMPRESSION: 1. Increased size of the large left renal cysts with no renal parenchymal visu alized. 2. Small right renal cysts. 3. Bladder wall thickening with surface irregularity. This can be seen with c ystitis, chronic outlet obstruction or neurogenic bladder. Reading Location: [id number]
--- NOTE | 2025-03-06 16:59 | RAD_ITS ---
PROCEDURE: HIP MIN 2 VIEWS (PORTABLE) 03/06/2025 REASON FOR EXAM: RIGHT HIP PAIN TECHNIQUE: Procedure Code: RADH_P Modality: DX Procedure: HIP MIN 2 VIEWS (PORTABLE) Laterality: Right COMPARISON: 09/16/2022 FINDINGS: No evidence of acute fracture or dislocation. Bilateral hip joints are intact with moderate degenerative arthrosis, characterized by joint space narrowing, subchondral sclerosis and marginal osteophytosis. No aggressive osseous lesion. Degenerative changes at the pubic symphysis and bilateral sacroiliac joints, and multilevel spondylotic changes of the imaged lumbosacral spine. Grossly unremarkable soft tissues. Atherosclerotic vascular calcifications. RAD/Hip Min 2 Views (Portable) IMPRESSION: No evidence of acute fracture or dislocation. Moderate degenerative changes of the lumbar spine, SI joints, and bilateral hip s. Reading Location: [id number]
--- NOTE | 2025-03-06 16:59 | RAD_ITS ---
PROCEDURE: LUMBAR SPINE 2 OR 3 VIEWS 03/06/2025 REASON FOR EXAM: RIGHT RADICULAR LEG PAIN TECHNIQUE: Procedure Code: RADSPLL Modality: DX Procedure: LUMBAR SPINE 2 OR 3 VIEWS COMPARISON: None. FINDINGS: Evaluation is somewhat limited on lateral view due to patient body habitus and underpenetration. No acute fracture or significant subluxation appreciated. Mild lumbar dextroscoliotic curvature. Moderate multilevel spondylotic changes with varying degrees of disc space narrowing with vacuum disc phenomena, endplate sclerosis and anterior osteophytosis, and hypertrophic facet arthropathy. Degenerative changes of the bilateral sacroiliac joints, pubic symphysis, and moderate bilateral hip arthrosis. Grossly unremarkable soft tissues. Atherosclerotic vascular calcifications. RAD/Lumbar Spine 2 or 3 Views IMPRESSION: No evidence of acute fracture or subluxation. Moderate multilevel spondylotic changes, as described. Reading Location: [id number]
--- NOTE | 2025-03-06 17:01 | PCM.HP.STD ---
[facility] - General General Date of Service: 03/06/25 Chief Complaint: Weakness [facility] Narrative NESTOR MONTES DE OCA, is a 89 F who presents with progressive weakness. Patient is having difficulty getting into the car. This is a 89-year-old female with history of A-fib and heart failure who presents with weakness has been progressive, 1 day history of right leg pain, increased swelling in her lower extremities and a 20 pound weight gain since January. So she presented to the emergency room as she was noted to be in atrial fibrillation with RVR and did receive a one-time dose of diltiazem 25 mg IV. Heart rate has since improved. Her potassium is noted to be 6.1 though it was hemolyzed patient was ordered medications such as calcium gluconate albuterol, insulin, dextrose. Repeat sample has been requested. Patient has been taking furosemide as well as spironolactone but still has been putting on this weight. Patient had chest x-ray that showed pleural effusions. The hospital service was contacted for admission. Despite the increased weight gain and pleural effusions and pulmonary vascular congestion, patient is breathing comfortably on room air with sats well in the 90s. [ ] [facility] Medical History (Updated 03/06/25 @ 17:[address] Stefano Black, DO) Right leg pain Pleural effusion Atrial fibrillation with RVR Congestive heart failure New onset atrial fibrillation Mass of left kidney Breast cancer Carpal tunnel syndrome of left wrist DVT (deep venous thrombosis) GERD (gastroesophageal reflux disease) Arthritis HTN (hypertension) Home Medications ?Medication ?Instructions ?Recorded ?Last Taken ?Type cholecalciferol (vitamin D3) 50 2,000 unit PO DAILY SUPPLEMENT 03/05/20 01/03/22 History mcg (2,000 unit) capsule cranberry extract-vitamin C 250 2 ea PO DAILY URINARY HEALTH 03/05/20 01/03/22 History mg-60 mg capsule diphenhydramine HCl 25 mg tablet 25 mg PO QHS PRN allergy symptoms 07/22/24 Unknown History (Benadryl Allergy) omeprazole 20 mg capsule,delayed 20 mg PO QHS 10/01/24 Unknown History release oxybutynin chloride 5 mg 5 mg PO DAILY 10/01/24 Unknown History tablet,extended release 24 hr apixaban 5 mg tablet (Eliquis) 5 mg PO BID #60 tabs 10/30/24 Unknown Rx uvtltbrv-gqky-cimb 8 mg-folic 400 1 tab PO QDAY 10/30/24 Unknown History mcg-K 50 mcg-lutein 300 mcg tablet (Centrum Silver Women) potassium chloride 20 mEq 20 meq PO DAILY #90 tabs 11/26/24 Unknown Rx tablet,extended release(part/cryst) furosemide 40 mg tablet (Lasix) 20 mg PO BID 01/30/25 Unknown History metoprolol tartrate 50 mg tablet 50 mg PO BID 01/30/25 Unknown History spironolactone 25 mg tablet 25 mg PO QDAY 01/30/25 Unknown History tamoxifen 20 mg tablet 20 mg PO QDAY 90 days #90 tabs 01/30/25 Unknown Rx tramadol 50 mg tablet 25 mg PO QHS PRN pain 01/30/25 Unknown History Allergy/AdvReac Type Severity Reaction Status Date / Time sulfamethoxazole (From Allergy Intermediate Dizziness Verified 03/06/25 12:53 Septra) trimethoprim (From ) Allergy Intermediate Dizziness Verified 03/06/25 12:53 Penicillins (PCN) Allergy Swelling Verified 03/06/25 12:53 erythromycin base AdvReac Nausea Verified 03/06/25 12:53 Family History Mother Myocardial infarction Diabetes Father Myocardial infarction Diabetes Sister Colon cancer Aunt Cancer Breast Surgical History History of left mastectomy Hx of knee surgery History of lymph node biopsy (~10/2021) History of breast biopsy (~10/2021) History of History of lumpectomy of left breast History of hysterectomy Social History household members: spouse and other details: daughter and son-in-law, grandchildren housing: house Smoking Status: Never smoker alcohol intake: current alcohol intake frequency: a few times a week Alcohol type: wine what type of physical activity do you participate in: none do you feel safe at home: Yes ROS DANYELLE Narrative Does complain of generalized pruritus but no rash. All review of systems were negative except as mentioned above in the history of present illness and the other review of systems. Vital Signs Vital Signs Vital Signs: 03/06/25 12:51 03/06/25 13:02 03/06/25 13:40 Temperature 36.6 C Temperature Source Oral Pulse Rate 113 H 120 H Respiratory Rate 18 16 Respiratory Effort Normal Non-Labored Respiratory Pattern Normal Normal Blood Pressure 100/75 Blood Pressure Mean 83 Pulse Ox 95 Oxygen Delivery Method Room Air 03/06/25 13:49 03/06/25 14:48 03/06/25 16:00 Temperature Temperature Source Pulse Rate 59 L 56 L Respiratory Rate 19 H 18 Respiratory Effort Respiratory Pattern Blood Pressure 97/72 113/85 H Blood Pressure Mean 80 94 Pulse Ox 95 100 Oxygen Delivery Method Room Air Room Air 03/06/25 16:41 Temperature Temperature Source Pulse Rate 68 Respiratory Rate 16 Respiratory Effort Respiratory Pattern Normal Blood Pressure Blood Pressure Mean Pulse Ox Oxygen Delivery Method Weight Weight: 75.5 kg Body Mass Index (BMI) 34.9 Physical Exam Narrative POCUS at bedside performed. IVC was visualized and using the Smart IVC filter and shows that the IVC is dilated 2 cm with minimal respiratory variation. Kidneys were visualized and the left grossly appeared to be normal without any obvious hydronephrosis. The right was hard to visualize and patient was having discomfort with the ultrasound so further identification of the right kidney was stopped. Const alert and no apparent distress Constitutional Narrative: Hard of hearing. Nontoxic. General Appearance: cooperative HEENT normocephalic; Negative for hearing grossly normal bilaterally Eyes Eyes Narrative: No icterus Neck no lymphadenopathy Neck Narrative: Positive JVD Resp normal respiratory effort and no retractions Resp Narrative: Bibasilar crackles Cardio regular rate, no murmurs and no gallops GI GI Narrative: Protuberant and generally tender but no rebound tenderness. Marked abdominal wall edema up until the umbilical region Extremity Extremity Narrative: Marked tight edema in lower extremities bilaterally. Skin Skin Narrative: No rashes or sores Neuro moves all extremities Sensorium / Orientation: awake and alert Psych affect normal Results Lab / Micro Data Attestation: I reviewed the patient's lab results. 03/06/25 13:40 03/06/25 15:11 Labs: Laboratory Results - last 24 hr 03/06/25 13:40: WBC 5.3, RBC 4.68, Hgb 14.0, Hct 45.2, MCV 96.6, MCH 29.9, MCHC 31.0 L, RDW Std Deviation 64.8 H, RDW Coeff of Kierra 18.6 H, Plt Count 201, MPV 11.9, Immature Gran % (Auto) 0.400, Neut % (Auto) 74.4 H, Lymph % (Auto) 9.5 L, Forrest % (Auto) 12.5 H, Eos % (Auto) 2.1, Baso % (Auto) 1.1 H, Absolute Neuts (auto) 3.9, Absolute Lymphs (auto) 0.50 L, Nucleated RBC % 0.6, Sodium Cancelled, Potassium Cancelled, Chloride Cancelled, Carbon Dioxide Cancelled, Anion Gap Cancelled, BUN Cancelled, Creatinine Cancelled, Est GFR (MDRD) Non-Af Cancelled, BUN/Creatinine Ratio Cancelled, Glucose Cancelled, Calcium Cancelled, Troponin T High Sens Cancelled, [place] [id number] H 03/06/25 15:11: Sodium 135, Potassium 6.1 H*, Chloride 103, Carbon Dioxide 16.1 L, Anion Gap 16 H, BUN 63 H, Creatinine 2.28 H, Estim Creat Clear Calc 15.18 L, Est GFR (MDRD) Non-Af 20 L, BUN/Creatinine Ratio 27.6 H, Glucose 100 H, Calcium 10.5, Troponin T High Sens 47 H 03/06/25 16:03: POC Glucose 63 L Rhythm Strip Rhythm Strip: A-fib (Subsequent strip showing rate controlled atrial fibrillation) Ectopy: None EKG Initial EKG: Attestation: I personally reviewed and interpreted this EKG as follows: Prior EKG tracings: available for review EKG Rhythm Intrepretation: Atrial Fibrillation (A-fib with RVR) Imaging Radiology Impression Chest X-Ray 03/06/25 14:05 IMPRESSION: Bilateral pleural effusions left greater than right with bibasilar atelectasis and/or infiltrates worse at the left lung base. Reading Location: [facility] Assessment & Plan Assessment/Plan (1) (HFpEF) heart failure with preserved ejection fraction: PLAN: Noted 20 pound weight gain since January. Our records reflecting over 11 kg weight gain since that time. Patient is clearly edematous with massive anasarca and pleural effusions. Start furosemide gtt, strict Is/Os, fluid restrict 1.5 liters check echo POCUS shows dilated IVC therefore indicating that she is volume overloaded. Cautious diuresis with her KENNEY. If this does not improve with diuresis and she may need to see nephrology for [place] dialysis. (2) Acute hyperkalemia: PLAN: Likely due to KENNEY but also being on potassium and spironolactone. Patient received medications in emergency room. Will give the patient a dose of Kayexalate and reassess. (3) Atrial fibrillation with rapid ventricular response: PLAN: Resolved with a dose of diltiazem. Will monitor on telemetry. Continue with metoprolol to tartrate 50 twice daily as blood pressure and heart rate allow. Continue anticoagulation with apixaban (4) KENNEY (acute kidney injury): PLAN: On CKD 4 Will cautiously give the patient furosemide infusion. If creatinine continues to get worse and may need to consult nephrology for evaluation for dialysis. Will check an ultrasound. Limited POCUS exam showed grossly normal left kidney right kidney difficult to visualize due to patient discomfort with the testing (5) Right leg pain: PLAN: Began today. Atraumatic. Patient states the pain goes from her hip all the way down to her ankle. Denies any paresthesias. Will check a back x-ray to see if there is any kind of fracture as well as a right hip x-ray. This does sound radicular given her description. May consider further imaging as patient's condition permits if the symptoms persist. (6) Debility: PLAN: Globally weak. Patient states that her right leg despite the pain is not weaker than her left but she just globally weak. PT OT evaluate and treat. Case management to assist with disposition. PLAN: Plan Left breast cancer: History of invasive ductal type breast cancer. Status post left breast mastectomy and axillary lymph node dissection in 2021. On tamoxifen. Follow-up with Dr. John as outpatient VTE prophylaxis: Not indicated as patient is already anticoagulated CODE STATUS: Addressed with the patient and her daughters at bedside. Patient is full code at this time. Both were advised if they do change her mind to inform us so that we can change to their current wishes. Charges/Coding Visit Charges Inpatient E&M: 21622 Init Hosp L3
[2025-03-06 17:09] LABS: Potassium 5.9 mmol/L (3.3-5.1)
[2025-03-06 17:44] LABS: Anion Gap 14 (5-15); BUN 66 mg/dL (4-19); BUN/Creat Ratio 27.7 RATIO (10-20); Calcium,Total 10.2 mg/dL (7.6-11.0); Carbon Dioxide 18.1 mmol/L (21.0-32.0); Chloride 101 mmol/L (98-108); Estimated Creatinine Clearance 14.61 ml/min (50-250); Glucose 192 mg/dL (70-99); Potassium 5.9 mmol/L (3.3-5.1)
--- NOTE | 2025-03-06 17:46 | ECHOD_ITS ---
Reason For Study Reason For Study: CHF Procedure This was a 2D Doppler, Color Flow transthoracic echocardiogram. Exam performed portable in patient room. Left Ventricle Normal LV size. D shaped septum in systole and diastole. The left ventricular ejection fraction is 45 %. There is mild global hypokinesis of the left ventricle. Right Ventricle Moderately dilated right ventricle. Mild to moderate global right ventricular systolic dysfunction. The RV free wall longitudinal strain was -11.5 % . Atria Normal left atrium. Normal right atrium. Mitral Valve Bileaflet diffuse mitral valve thickening. Moderate (2+) eccentric mitral valve insufficiency. Tricuspid Valve Normal tricuspid valve. Moderate (2+) tricuspid valve insufficiency. Moderate pulmonary hypertension. Pulmonary artery systolic pressure is 60 mmHg. Aortic Valve Trisinus/trileaflet aortic valve. Mild focal aortic valve calcification. Pulmonic Valve Normal pulmonic valve. Great Vessels Normal aortic root. The pulmonary artery is normal size. Inferior vena cava collapse with sniff. Pericardium/Pleural Small (<1.0 cm) pericardial effusion. Moderate size left pleural effusion. MMode/2D Measurements & Calculations LVIDd: 3.7 cm IVSd: 0.97 cm LVOT diam: 2.0 cm LVIDs: 2.4 cm LVPWd: 0.90 cm LVOT area: 3.1 cm2 RVDd: 4.7 cm FS: 36.1 % Ao root diam: 2.8 cm LAV(MOD-bp): 59.2 ml LA A4 area: 19.5 cm2 LAV(MOD-bp) Indexed: 35.8 ml/m2 LAV(MOD-sp2): 59.1 ml LAV(MOD-sp4): 54.7 ml LA dimension(2D): 4.6 cm RA A4 area: 19.2 cm2 Time Measurements MV dec time: 0.14 sec Doppler Measurements & Calculations MV E max lilly: 93.9 cm/sec Ao V2 max: 107.7 cm/sec LV V1 max: 86.1 cm/sec Ao max P.7 mmHg LV V1 max P.0 mmHg Ao V2 mean: 71.0 cm/sec LV V1 mean P.8 mmHg Ao mean P.4 mmHg LV V1 mean: 63.4 cm/sec Ao V2 VTI: 21.7 cm LV V1 VTI: 17.1 cm AV (velocity ratio): 0.79 DELBERT(I,D): 2.5 cm2 DELBERT(V,D): 2.5 cm2 SV(LVOT): 53.2 ml PA V2 max: 61.3 cm/sec TR max lilly: 362.4 cm/sec PA V2 mean: 39.5 cm/sec TR max P.5 mmHg ECHO/Echo Complete Interpretation Summary The left ventricular ejection fraction is 45 %. Normal LV size. D shaped septum in systole and diastole. Moderately dilated right ventricle. Mild to moderate global right ventricular systolic dysfunction. Moderate (2+) eccentric mitral valve insufficiency. Moderate pulmonary hypertension. Pulmonary artery systolic pressure is 60 mmHg. Ordering Physician: Stefano Black Referring Physician: Waqas Palma Performed By: Jenn Hanson RCS
[2025-03-06 18:55] LABS: Troponin T High Sens 2 HR 45 ng/L (<=14)
[2025-03-06] MEDS: 0.9% Saline Lock 10 ML Syringe IV ×2 (20:30→21:13)
[2025-03-06 21:02] LABS: Anion Gap 16 (5-15); BUN 64 mg/dL (4-19); BUN/Creat Ratio 27.8 RATIO (10-20); Calcium,Total 9.7 mg/dL (7.6-11.0); Carbon Dioxide 15.9 mmol/L (21.0-32.0); Chloride 103 mmol/L (98-108); Estimated Creatinine Clearance 14.96 ml/min (50-250); Glucose 192 mg/dL (70-99); Potassium 5.9 mmol/L (3.3-5.1)
[2025-03-06] MEDS: Furosemide 500 MG in Empty Viaflex 50 mL 1 EACH CONT INF (21:11)
[2025-03-06 21:15] LABS: Troponin T High Sens 4 HR 41 ng/L (<=14)
[2025-03-07] VITALS (8 sets, daily range): BP systolic 96–109; BP diastolic 63–68; PULSE 60–93; RESP 16–18; TEMP -13.5–36.8; O2SAT 96–99
[2025-03-07] MEDS: APIXABAN 5 MG TABLET PO ×2 (00:32→10:07)
[2025-03-07 04:12] LABS: Hematocrit 37.9 % (37-47); Hemoglobin 12.0 g/dL (12.0-15.0); Immature Granulocytes Count 0.010 X10^3/uL (0.0-0.0); Mean Corp Hgb Conc 31.7 g/dL (32-36); Mean Corpuscular Volume 93.8 fL (81-99); Mean Platelet Vol. 12.0 fl (6.2-12.0); NRBC Flagged by Analyzer 0.4 % (0-5); POSITIVE DIFFERENTIAL YES; Platelet Count 184 K/mm3 (150-450); RBC Distribution Width CV 18.3 % (11.6-14.6); RBC Distribution Width SD 62.2 fl (35.1-43.9); Red Blood Count 4.04 M/mm3 (4.2-5.4); White Blood Count 5.4 K/mm3 (4.4-11.0)
[2025-03-07 04:35] LABS: Anion Gap 12 (5-15); BUN 63 mg/dL (4-19); BUN/Creat Ratio 28.8 RATIO (10-20); Calcium,Total 9.1 mg/dL (7.6-11.0); Carbon Dioxide 17.0 mmol/L (21.0-32.0); Chloride 103 mmol/L (98-108); Estimated Creatinine Clearance 15.71 ml/min (50-250); Glucose 137 mg/dL (70-99); Potassium 5.0 mmol/L (3.3-5.1)
--- NOTE | 2025-03-07 07:11 | PN.HOSP_ITS ---
Reason for Visit Chief Complaint: Weakness Subjective Subjective Patient does states she is feeling a little bit better overall. Complains of marked swelling and pain in her legs due to the swelling. She states she gets yeast in her groin due to the swelling in the folds that it created. I did talk to her daughter. Her daughter states that she has had progressively worsening swelling since January with her primary care physician reduced her Lasix dose due to concern of her renal function and age. It does look like she had a cyst like bump in her creatinine from a baseline of 1.25-1 0.4-1.77 and is probably why they decreased her dose however I do suspect she may need to have a little bit higher creatinine to compensate for her cardiac issues. Objective Data Objective Data Vital Signs: Vital Signs Temp Pulse Resp BP Pulse Ox O2 Del Method 97.9 F 93 16 96/66 96 Room Air 03/07/25 05:30 03/07/25 05:30 03/07/25 05:30 03/07/25 05:30 03/07/25 05:30 03/07/25 05:30 Oxygen Delivery Method Room Air Weight: 74.6 kg Body Mass Index (BMI) 34.3 Intake & Output: Intake and Output for Last 24 Hours 03/05/25 03/06/25 03/07/25 23:59 23:59 23:59 Intake Total 530 / 530 Output Total 850 / 850 Balance 530 / 530 -850 / -850 Lab / Micro Data 03/07/25 03:59 03/07/25 03:41 Labs: Laboratory Results - last 24 hr 03/06/25 13:40: WBC 5.3, RBC 4.68, Hgb 14.0, Hct 45.2, MCV 96.6, MCH 29.9, MCHC 31.0 L, RDW Std Deviation 64.8 H, RDW Coeff of Kierra 18.6 H, Plt Count 201, MPV 11.9, Immature Gran % (Auto) 0.400, Neut % (Auto) 74.4 H, Lymph % (Auto) 9.5 L, Victoria % (Auto) 12.5 H, Eos % (Auto) 2.1, Baso % (Auto) 1.1 H, Absolute Neuts (auto) 3.9, Absolute Lymphs (auto) 0.50 L, Nucleated RBC % 0.6, Sodium Cancelled, Potassium Cancelled, Chloride Cancelled, Carbon Dioxide Cancelled, Anion Gap Cancelled, BUN Cancelled, Creatinine Cancelled, Est GFR (MDRD) Non-Af Cancelled, BUN/Creatinine Ratio Cancelled, Glucose Cancelled, Calcium Cancelled, Troponin T High [place]ens [place]elled, [place] [id number] H 03/06/25 15:11: Sodium 135, Potassium 6.1 H*, Chloride 103, Carbon Dioxide 16.1 L, Anion Gap 16 H, BUN 63 H, Creatinine 2.28 H, Estim Creat Clear Calc 15.18 L, Est GFR (MDRD) Non-Af 20 L, BUN/Creatinine Ratio 27.6 H, Glucose 100 H, Calcium 10.5, Troponin T High Sens 47 H 03/06/25 16:03: POC Glucose 63 L 03/06/25 16:50: Potassium 5.9 H 03/06/25 17:10: Sodium 133, Potassium 5.9 H, Chloride 101, Carbon Dioxide 18.1 L , Anion Gap 14, BUN 66 H, Creatinine 2.37 H, Estim Creat Clear Calc 14.61 L, Est GFR (MDRD) Non-Af 19 L, BUN/Creatinine Ratio 27.7 H, Glucose 192 H, Calcium 10.2 03/06/25 18:20: Troponin T Hi Sens 2 Hr 45 H 03/06/25 20:24: Sodium 134, Potassium 5.9 H, Chloride 103, Carbon Dioxide 15.9 L , Anion Gap 16 H, BUN 64 H, Creatinine 2.30 H, Estim Creat Clear Calc 14.96 L, E st GFR (MDRD) Non-Af 20 L, BUN/Creatinine Ratio 27.8 H, Glucose 192 H, Calcium 9.7, Troponin T Hi Sens 4Hr 41 H 03/07/25 03:41: Sodium 133, Potassium 5.0, Chloride 103, Carbon Dioxide 17.0 L, Anion Gap 12, BUN 63 H, Creatinine 2.19 H, Estim Creat Clear Calc 15.71 L, Est GFR (MDRD) Non-Af 21 L, BUN/Creatinine Ratio 28.8 H, Glucose 137 H, Calcium 9.1 03/07/25 03:59: WBC 5.4, RBC 4.04 L, Hgb 12.0, Hct 37.9, MCV 93.8, MCH 29.7, M CHC 31.7 L, RDW Std Deviation 62.2 H, RDW Coeff of Kierra 18.3 H, Plt Count 184, MPV 12.0, Immature Gran % (Auto) 0.200, Neut % (Auto) 69.4, Lymph % (Auto) 11.1 L, Victoria % (Auto) 16.7 H, Eos % (Auto) 1.7, Baso % (Auto) 0.9, Absolute Neuts (auto) 3.7, Absolute Lymphs (auto) 0.60 L, Nucleated RBC % 0.4 Radiography Diagnostic Testing: Radiology Impression Chest X-Ray 03/06/25 14:05 IMPRESSION: Bilateral pleural effusions left greater than right with bibasilar atelectasis and/or infiltrates worse at the left lung base. Reading Location: [facility] Hip X-Ray 03/06/25 16:59 IMPRESSION: No evidence of acute fracture or dislocation. Moderate degenerative changes of the lumbar spine, SI joints, and bilateral hips. Reading Location: [facility] Lumbar Spine X-Ray 03/06/25 16:59 IMPRESSION: No evidence of acute fracture or subluxation. Moderate multilevel spondylotic changes, as described. Reading Location: [facility] Renal Ultrasound 03/06/25 16:59 IMPRESSION: 1. Increased size of the large left renal cysts with no renal parenchymal visualized. 2. Small right renal cysts. 3. Bladder wall thickening with surface irregularity. This can be seen with cystitis, chronic outlet obstruction or neurogenic bladder. Reading Location: [facility] Rhythm Strip Rhythm Strip: A-fib (Subsequent strip showing rate controlled atrial fibrillation) Rate: 115 Ectopy: None Physical Exam Const alert, oriented x3, no apparent distress and well nourished; Negative for average body habitus or healthy appearing Constitutional Narrative: Very pleasant, elderly, white female, obese, sitting up in a chair at the bedside, nontoxic, currently appears comfortable HEENT head/scalp atraumatic and moist oral mucous membranes HEENT Narrative: Mallampati 2, no thrush Head and Scalp: normocephalic Eyes conjunctivae normal Eyes Narrative: No scleral icterus Neck supple Neck Narrative: JVD is present with very distended neck veins Resp normal respiratory effort, no retractions, no use of accessory muscles and clear to auscultation bilaterally Resp Narrative: Diminished at bases bilaterally no significant crackles appreciated Auscultation: Negative for crackles, rhonchi or wheezes Cardio regular rate, regular rhythm, S1 normal heart sound, S2 normal heart sound, no rub and no clicks; Negative for no murmurs or no gallops Cardio Narrative: S3 gallop present, intermittent ectopic beats, 3 out of 6 systolic murmur loudest at left lower sternal border GI normal to inspection, nondistended, normoactive bowel sounds, soft to palpation and non-tender Extremity Extremity Narrative: Marked anasarca bilateral lower extremities up into her thighs and abdomen, buttocks, no cyanosis or clubbing Skin Skin Narrative: No significant skin breakdown noted despite the edema Neuro moves all extremities and no focal motor deficits Speech: speech normal Psych affect normal Psych Narrative: Very pleasant, mildly anxious, interacts appropriately Assessment & Plan Assessment/Plan (1) Bilateral pleural effusion: (2) Atrial fibrillation with rapid ventricular response: (3) KENNEY (acute kidney injury): PLAN: Plan Acute systolic and diastolic heart failure on chronic diastolic heart failure/moderate MR - Suspect weight gain is related to her diuretic change and change in EF - Previous EF was normal but most recent echocardiogram shows global dysfunction with an EF of 45% in addition to moderate MR - She also has pulmonary hypertension and some RV dysfunction likely related to her marked volume overload - Would recommend aggressive diuresis and repeat her echocardiogram in about 6 weeks as the right-sided dysfunction and pulmonary hypertension should improve - Her EF of 45% is likely an overestimate with her mitral valve dysfunction - Continue Lasix drip - Continue fluid restriction - Continue sodium restriction - Consider praneeth wraps once edema is improving - Will need outpatient follow-up after discharge - Will add on appropriate goal-directed therapy as able to include Jardiance or Farxiga and possibly hydralazine/nitrates - Would avoid PRANEETH inhibitor due to renal function at baseline - Palliative care was consulted and CODE STATUS was able to be changed to DNR CCA with intubation-appreciate ongoing input KENNEY on 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 - Will hold Aldactone at this time Bilateral pleural effusions Control repeat chest x-ray on Monday and if pleural effusions are not improving may need thoracentesis Hyperkalemia - Like related to KENNEY and Aldactone use - Continue to hold Aldactone - Continue diuresis - Potassium has normalized today - Hold home potassium supplementation Paroxysmal atrial fibrillation - Continue apixaban but decreased from 5 mg to 2.5 mg given creatinine and age - Currently in sinus rhythm but is having some frequent ectopy so may have some paroxysmal A-fib while she is hospitalized - Continue home beta-danya - On presentation was in A-fib with RVR GERD - Continue PPI Bilateral lower leg pain - Highly suspect related to severe volume overload - Continue as needed medication - Imaging is unremarkable other than arthritis Generalized weakness/debility - PT/OT following - Case management/social work consult - Will likely need placement at discharge History of breast cancer - Continue home tamoxifen - Ongoing outpatient follow-up with oncology DVT prophylaxis - Continue Eliquis but decrease dose to renal dose with her age and current creatinine clearance at 2.5 twice daily CODE STATUS - Palliative care evaluated the patient today and she changed her CODE STATUS to from full code to DNR CCA okay for short-term intubation but no trach or PEG Charges/Coding Visit Charges Inpatient E&M: 48290 [facility] Hosp L3
[2025-03-07] MEDS: FLU VACCINE HIGH DOSE 25-26(65YR UP) 180 MCG/0.5 ML SYRINGE IM (09:08)
[2025-03-07] MEDS: Cholecalciferol (VIT D3) 25 MCG TABLET (1,000 UNITS) 50 MCG PO (10:07)
--- NOTE | 2025-03-07 10:23 | CON.PCM.PA_ITS ---
[facility] Medical History Right leg pain Pleural effusion Atrial fibrillation with RVR Congestive heart failure New onset atrial fibrillation Mass of left kidney Breast cancer Carpal tunnel syndrome of left wrist DVT (deep venous thrombosis) GERD (gastroesophageal reflux disease) Arthritis HTN (hypertension) Home Medications ?Medication ?Instructions ?Recorded ?Last Taken ?Type cholecalciferol (vitamin D3) 50 2,000 unit PO DAILY COTTRELL PPLEMENT 03/05/20 01/03/22 History mcg (2,000 unit) capsule cranberry extract-vitamin C 250 2 ea PO DAILY URINARY HEALTH 03/05/20 03/06/25 History mg-60 mg capsule diphenhydramine HCl 25 mg tablet 25 mg PO QHS PRN fatou rgy symptoms 07/22/24 03/05/25 History (Benadryl Allergy) omeprazole 20 mg capsule,delayed 20 mg PO QHS GI healt h 10/01/24 03/05/25 History release oxybutynin chloride 5 mg 5 mg PO DAILY bladder health 10/01/24 03/06/25 History tablet,extended release 24 hr apixaban 5 mg tablet (Eliquis) 5 mg PO BID #60 tabs 03/06/25 Rx qywksygv-ared-akal 8 mg-folic 400 1 tab PO QDAY genera l health 10/30/24 03/06/25 History mcg-K 50 mcg-lutein 300 mcg tablet (Centrum Silver Women) potassium chloride 20 mEq 20 meq PO DAILY #90 tabs 03/06/25 Rx tablet,extended release(part/cryst) furosemide 40 mg tablet (Lasix) 20 mg PO BID diuretic 01/30/25 03/06/25 History metoprolol tartrate 50 mg tablet 50 mg PO BID cardiac 01/30/25 03/06/25 History spironolactone 25 mg tablet 25 mg PO QDAY diuretic 03/06/25 History tamoxifen 20 mg tablet 20 mg PO QDAY 90 days #90 ta bs 01/30/25 03/06/25 Rx tramadol 50 mg tablet 25 mg PO QHS PRN pain 03/05/25 History Allergy/AdvReac Type Severity Reaction Status Date / Time sulfamethoxazole (From Allergy Intermediate Dizziness Verified 03/06/25 12:53 Sept) trimethoprim (From ) Allergy Intermediate Dizziness Verified 03/06/25 12:53 Penicillins (PCN) Allergy Swelling Verified 03/06/25 12:53 erythromycin base AdvReac Nausea Verified 03/06/25 12:53 Family History Mother Myocardial infarction Diabetes Father Myocardial infarction Diabetes Sister Colon cancer Aunt Cancer Breast Surgical History History of left mastectomy Hx of knee surgery History of lymph node biopsy (~10/2021) History of breast biopsy (~10/2021) History of History of lumpectomy of left breast History of hysterectomy Social History household members: spouse and other details: daughter and son-in-law, grandchildren housing: house Smoking Status: Never smoker alcohol intake: current alcohol intake frequency: a few times a week Alcohol type: wine what type of physical activity do you participate in: none do you feel safe at home: Yes ROS Constitutional Constitutional: Reports body ache(s), weakness and weight gain Eyes Eyes: Reports systems reviewed and no addt'l complaints, except as documented ENT HEENT: Reports other Details: Hard of hearing and wears hearing aids Cardiovascular Cardiovascular: Reports dyspnea, dyspnea at rest, dyspnea on exertion, easily tiring during activity, edema, erythema on extremities, fatigue and pedal edema Respiratory/Chest Respiratory/Chest: Reports shortness of breath at rest and shortness of breath with exertion Gastrointestinal Gastrointestinal: Reports systems reviewed and no addt'l complaints, except as documented Genitourinary Genitourinary: Reports systems reviewed and no addt'l complaints, except as documented Musculoskeletal Musculoskeletal: Reports arthralgias, extremity pain, joint pain, joint stiffness and limited range of motion Integumentary Integumentary: Reports systems reviewed and no addt'l complaints, except as documented Neurologic Neurologic: Reports systems reviewed and no addt'l complaints, except as documented Psychiatric Psychiatric: Reports systems reviewed and no addt'l complaints, except as documented Endocrine Endocrinology: Reports systems reviewed and no addt'l complaints, except as documented Hematologic/Lymphatic Hematologic/Lymphatic: Reports systems reviewed and no addt'l complaints, except as documented Allergic/Immunologic Allergic/Immunologic: Reports systems reviewed and no addt'l complaints, except as documented Physical Exam Const alert and oriented x3 General Appearance: cooperative HEENT normocephalic Lymph Lymphatic: lymphedema Resp Auscultation: diminished lung sounds Cardio Cardio Narrative: Murmur noted Rate: tachycardic Rhythm: abnormal rhythm irregularly irregular GI normal to inspection, nondistended, normoactive bowel sounds GI Narrative: Last BM was yesterday Extremity Extremity Narrative: 4+ pitting edema bilateral lower extremities General Extremity: no tenderness to palpation of joints or extremities Skin no rashes or lesions noted Neuro CN's II-XII intact bilaterally Speech: speech normal Gait (Neuro): unable to assess gait Psych affect normal Charges/Coding Palliative Care Palliative Care: [id number] New Pt Consult 80+ min HPI Current admission Current Code Status: DNRCC-A with time limited trial on the vent with no trach and PEG Associated Diagnosis: CHF exacerbation Consult Data Date of Consult: 03/07/25 Location of consult: PCU Reason for referral: goals Referral source: Dr. Ocasio Palliative care diagnosis (Summary list): multiple co-morbidities Palliative care services/treatment (Accepted, as consult): accepted Case discussed with referring provider: change in code status HPI Narrative HPI Narrative: PAIN ASSESSMENT: Location: [legs and back ] Quality: [throbbing ] Severity/Quantity: [7- 8/10 ] Timing/Frequency: [ chronic last couple months] Context: [edema ] Factors that make it better/worse: [movement makes it worse ] Associated signs & symptoms: [edema ] Prior to meeting with the pt at bedside, I reviewed labs, radiological studies and documentation. I then met with Nestor at bedside. She is aao x 3. There is no family at bedside. I introduced myself and the concept of palliative care in which she voluntarily accepted our services. Nestor was admitted on 03/06/2025 for a 20 pound weight gain since January, generalized weakness, and edema to bilateral lower extremities. She states that she has been taking her Lasix appropriately. She was found to be in A-fib with RVR and chest x-ray was significant for CHF exacerbation. She is currently on room air with oxygen saturations in the 90s. She currently denies shortness of breath but stated that she was significantly short of breath at home with exertion. Avis acknowledges that she has had a significant decline in the last few months. She states that she is having difficulty with walking and getting up from a seated position. She lives with her daughter on the second floor of a tri level home. She states that she does have an electric chair that goes between the floors with grab bars at the top and bottom floors. Her also lives with her but he has dementia and is unable to participate with any goals of care conversations as a family. Daughter is currently at work. Daughter does personnel worker but Nestor states she works 10 hours days every day. I discussed with the pt her ECHO and provider her with a visual explanation of what it means for her. She stated understanding and was able to ask meaningful questions appropriately. Pt does have an EF of 45% with a moderately dilated R ventricle, Mild/Mod global R ventricle systolic dysfunction, mod 2+ mitral valve insufficiency, Mod pulmonary HTN with the Pul Art systolic pressure of 60. She is currently on Lasix drip with good urine output. She continues to have bilateral lower extremity pain with 4+ pitting edema to bilateral lower extremities. I did discuss with Nestor her generalized weakness and what her current abilities are. I did discuss the possibility of SNF for rehab which she stated that she has had rehab at home previously. We did have an extensive discussion about her abilities currently and that she may benefit from more intensive rehab that what can be provided at home. She stated understanding and would be open to SNF placement if recommended by PT/OT. Her preference is to return home. We then had an extensive discussion about the patient's CODE STATUS. She is currently listed as a full code. We did discuss benefits versus burdens of CPR and long-term prognosis. Following our extensive discussion and answering questions patient has elected to be DNR CC?a. She states that she is open to a time-limited trial of intubation for reversible causes but that she would not want to go to a trach and PEG or live on machines. I did ask her to provide teach back after we discussed her CODE STATUS in which she does have good understanding and insight about DNR CCA with intubation at time-limited trial. I do feel that this patient would benefit from outpatient palliative care services. The patient has made a lot of decisions today that were very difficult for her and she is getting tired. I did indicate we could discuss further goals of care tomorrow and allow her for rest today. She stated appreciation. All questions were answered. Palliative care will continue to follow for goals of care conversations as clinical picture evolves. Per hospitalist: NESTOR MONTES DE OCA, is a 89 F who presents with progressive weakness. Patient is having difficulty getting into the car. This is a 89-year-old female with history of A-fib and heart failure who presents with weakness has been progressive, 1 day history of right leg pain, increased swelling in her lower extremities and a 20 pound weight gain since January. So she presented to the emergency room as she was noted to be in atrial fibrillation with RVR and did receive a one-time dose of diltiazem 25 mg IV. Heart rate has since improved. Her potassium is noted to be 6.1 though it was hemolyzed patient was ordered medications such as calcium gluconate albuterol, insulin, dextrose. Repeat sample has been requested. Patient has been taking furosemide as well as spironolactone but still has been putting on this weight. Patient had chest x-ray that showed pleural effusions. The hospital service was contacted for admission. Despite the increased weight gain and pleural effusions and pulmonary vascular congestion, patient is breathing comfortably on room air with sats well in the 90s. Palliative Assessment Advanced Directive - Current Admission Advance Directive: Advance Directive ON ADMISSION - REFERENCE 3 Do you have a Healthcare Yes 03/06/25 17:46 Living Will? Is a Healthcare Living Will Yes, It is scanned in 03/06/25 17:46 present in the medical record? Do you have a Healthcare Power Yes 03/06/25 17:46 of Intravenous Therapy Nurse? Is a Healthcare Power of Yes, It is scanned in 03/06/25 17:46 Intravenous Therapy Nurse present in the medical rec Do You Want Additional Declined 03/06/25 17:46 Information on Advanced Directives or Healthcare Proxy/DPOA comments: Camron Tran [phone]. Psychosocial/Spiritual Information Living situation/Marital status: Patient lives with her and her daughter's and son-in-law's home. Geographic location: [place], [place] Supports: Family Yazdanism/Rosa M or spiritual preference: congregation Spiritual distress: None Prior functional status: Able to do some ADLs. Has declined in the last couple of months Assistive devices at home: Walker, wheelchair, lift chair, electric chair between floors Cultrual issues: None Information about the patient as a person: Patient enjoys spending time with family Symptoms Palliative performance scale: 40% Palliative prognostic index: 8.0 Dyspnea symptoms: Moderate Constipation symptoms: None Nausea symptoms: None Vomiting symptoms: None Depression symptoms: None Anorexia symptoms: Mild Cough symptoms: None Insomnia symptoms: Mild Diarrhea symptoms: None Fatigue symptoms: Moderate Weakness symptoms: Moderate Confusion symptoms: None Objective Data Objective Data Vital Signs: Vital Signs Temp Pulse Resp BP Pulse Ox O2 Del Method 97.9 F 65 16 96/66 96 Room Air 03/07/25 05:30 03/07/25 10:07 03/07/25 05:30 03/07/25 05:30 03/07/25 05:30 03/07/25 05:30 Oxygen Delivery Method Room Air Weight: 164 lb 7.437 oz Body Mass Index (BMI) 34.3 Intake & Output: Intake and Output for Last 24 Hours 03/05/25 03/06/25 03/07/25 23:59 23:59 23:59 Intake Total 530 / 530 Output Total 1600 / 1600 Balance 530 / 530 -1600 / -1600 Lab / Micro Data Attestation: I reviewed the patient's lab results. Lab results narrative: Patient has had a slight improvement in kidney function today. Her BUN is 63 was 64 yesterday. Creatinine is 2.19 today and was 2.3 yesterday GFR was 21 and it was 20 yesterday. It appears that she does have some chronic kidney disease with a typical BUN in the 30s and her GFR anywhere from 30-40. 03/07/25 03:59 03/07/25 03:41 Labs: Laboratory Results - last 24 hr 03/06/25 13:40: WBC 5.3, RBC 4.68, Hgb 14.0, Hct 45.2, MCV 96.6, MCH 29.9, MCHC 31.0 L, RDW Std Deviation 64.8 H, RDW Coeff of Kierra 18.6 H, Plt Count 201, MPV 11.9, Immature Gran % (Auto) 0.400, Neut % (Auto) 74.4 H, Lymph % (Auto) 9.5 L, [place] % (Auto) 12.5 H, Eos % (Auto) 2.1, Baso % (Auto) 1.1 H, Absolute Neuts (auto) 3.9, Absolute Lymphs (auto) 0.50 L, Nucleated RBC % 0.6, Sodium Cancelled, Potassium Cancelled, Chloride Cancelled, Carbon Dioxide Cancelled, Anion Gap Cancelled, BUN Cancelled, Creatinine Cancelled, Est GFR (MDRD) Non-Af Cancelled, BUN/Creatinine Ratio Cancelled, Glucose Cancelled, Calcium Cancelled, Troponin T High S[place], [place] [address] H 03/06/25 15:11: Sodium 135, Potassium 6.1 H*, Chloride 103, Carbon Dioxide 16.1 L, Anion Gap 16 H, BUN 63 H, Creatinine 2.28 H, Estim Creat Clear Calc 15.18 L, Est GFR (MDRD) Non-Af 20 L, BUN/Creatinine Ratio 27.6 H, Glucose 100 H, Calcium 10.5, Troponin T High Sens 47 H 03/06/25 16:03: POC Glucose 63 L 03/06/25 16:50: Potassium 5.9 H 03/06/25 17:10: Sodium 133, Potassium 5.9 H, Chloride 101, Carbon Dioxide 18.1 L , Anion Gap 14, BUN 66 H, Creatinine 2.37 H, Estim Creat Clear Calc 14.61 L, Est GFR (MDRD) Non-Af 19 L, BUN/Creatinine Ratio 27.7 H, Glucose 192 H, Calcium 10.2 03/06/25 18:20: Troponin T Hi Sens 2 Hr 45 H 03/06/25 20:24: Sodium 134, Potassium 5.9 H, Chloride 103, Carbon Dioxide 15.9 L , Anion Gap 16 H, BUN 64 H, Creatinine 2.30 H, Estim Creat Clear Calc 14.96 L, E st GFR (MDRD) Non-Af 20 L, BUN/Creatinine Ratio 27.8 H, Glucose 192 H, Calcium 9.7, Troponin T Hi Sens 4Hr 41 H 03/07/25 03:41: Sodium 133, Potassium 5.0, Chloride 103, Carbon Dioxide 17.0 L, Anion Gap 12, BUN 63 H, Creatinine 2.19 H, Estim Creat Clear Calc 15.71 L, Est GFR (MDRD) Non-Af 21 L, BUN/Creatinine Ratio 28.8 H, Glucose 137 H, Calcium 9.1 03/07/25 03:59: WBC 5.4, RBC 4.04 L, Hgb 12.0, Hct 37.9, MCV 93.8, MCH 29.7, M CHC 31.7 L, RDW Std Deviation 62.2 H, RDW Coeff of Kierra 18.3 H, Plt Count 184, MPV 12.0, Immature Gran % (Auto) 0.200, Neut % (Auto) 69.4, Lymph % (Auto) 11.1 L, [address] % (Auto) 16.7 H, Eos % (Auto) 1.7, Baso % (Auto) 0.9, Absolute Neuts (auto) 3.7, Absolute Lymphs (auto) 0.60 L, Nucleated RBC % 0.4 03/07/25 07:02: POC Glucose 103 Radiography Diagnostic Testing: Radiology Impression Chest X-Ray 03/06/25 14:05 IMPRESSION: Bilateral pleural effusions left greater than right with bibasilar atelectasis and/or infiltrates worse at the left lung base. Reading Location: [facility] Hip X-Ray 03/06/25 16:59 IMPRESSION: No evidence of acute fracture or dislocation. Moderate degenerative changes of the lumbar spine, SI joints, and bilateral hips. Reading Location: [facility] Lumbar Spine X-Ray 03/06/25 16:59 IMPRESSION: No evidence of acute fracture or subluxation. Moderate multilevel spondylotic changes, as described. Reading Location: [facility] Renal Ultrasound 03/06/25 16:59 IMPRESSION: 1. Increased size of the large left renal cysts with no renal parenchymal visualized. 2. Small right renal cysts. 3. Bladder wall thickening with surface irregularity. This can be seen with cystitis, chronic outlet obstruction or neurogenic bladder. Reading Location: [facility] Echocardiogram 03/06/25 17:46 Interpretation Summary The left ventricular ejection fraction is 45 %. Normal LV size. D shaped septum in systole and diastole. Moderately dilated right ventricle. Mild to moderate global right ventricular systolic dysfunction. Moderate (2+) eccentric mitral valve insufficiency. Moderate pulmonary hypertension. Pulmonary artery systolic pressure is 60 mmHg. Ordering Physician: Stefano Black Referring Physician: Waqas Palma Performed By: Jenn Hanson RCS Rhythm Strip Rhythm Strip: A-fib (Subsequent strip showing rate controlled atrial fibrillation) Rate: 115 Ectopy: None Impressions & Recommendations Patient & Family Issues discussed with the patient and family: Goals of care going forward and CODE STATUS Patient goal: Patient would like to go home but is open to SNF placement if needed CODE STATUS change Family goal: No family bedside Ethical & Legal Ethical and legal: None at this time Impressions Impressions: Patient would benefit from outpatient palliative care services. She would also benefit from SNF placement versus home with home health and PT Recommentation Palliative recommendations: Recommend outpatient palliative as well as the placement Encouter Achieved as a result of this Palliative Care Encounter: [[id number], [id number] ] minutes were spent in total for this visit which consisted, primarily of counseling and education dealing with the complex and emotionally intense issues of symptom management and palliative care in the setting of serious and potentially life-threatening illness. Review of documentation, labs and radiological studies. ?Patient/family had the opportunity to ask questions Plan (1) Debility: (2) (HFpEF) heart failure with preserved ejection fraction: QUALIFIERS: Heart failure chronicity: acute on chronic Qualified Code(s): I50.33 - Acute on chronic diastolic (congestive) heart failure (3) Bilateral pleural effusion: (4) Chronic kidney disease: QUALIFIERS: Chronic kidney disease stage: stage 3 (moderate) C hronic kidney disease stage 3 subtype: unspecified whether 3a or 3b Qualified Code(s): N18.30 - Chronic kidney disease, stage 3 unspecified (5) Congestive heart failure: QUALIFIERS: Heart failure type: systolic Heart failure chronicity: acute on chronic Qualified Code(s): I50.23 - Acute on chronic systolic (congestive) heart failure (6) Atrial fibrillation with rapid ventricular response: (7) Goals of care, counseling/discussion: (8) Palliative care encounter: PLAN: Plan *CODE STATUS discussion and CODE STATUS changed to DNR CCA with intubation time- limited trial. No trach or PEG *Goals of care discussion. Patient was hoping to discharge home but is open to SNF placement if recommended by PT/OT. For short amount of time *Continue goals of care discussions and outpatient palliative care options *Extensive discussion about pain management. She is currently receiving acetaminophen scheduled every 6 hours with tramadol at night but has oxycodone available for breakthrough pain. Patient states that she was unaware if she had any other options for pain management. *Bedside teaching about echocardiogram with visualizations and explanation given
--- NOTE | 2025-03-07 12:40 | CASEMGMT ---
Addendum entered by Maryse Lake 03/07/25 16:15: 3:45 PM: Therapy has worked w/pt. Pt only able to ambulate 5 ft and SNF is recommended. INEZ CM to room. Pt sitting up in chair. Discussed therapy, weakness, and recommendations for SNF. She states she was surprised at how weak she is & she agrees she does need to go somewhere for therapy before returning home. Questions answered. Pt provided SNF list that was prepared by chitra Gonsales assistant community manager. Educated on referral and pre-cert process. Pt states would like INEZ GARG to call her daughter to discuss this w/her as well. Call placed to Dipti bernabe, and discussed all of the above w/her. Questions answered. She states she will be coming in to visit w/pt this evening. She is aware to review list and top pick top 3 preferences. Original Note: RN?CM?ASSESSMENT ? RN?CM?to room to meet with patient for initial transition planning/care coordination?assessment.?RN?CM?introduced self and role at [facility].? Pt voices understanding and consents to?assessment?at this time.? Pt resting in bed in no distress at this time.?Pt is A/O at this time and answers all questions appropriately.??[facility]. Care providers, pharmacy, and demographics verified/updated at this time. ? Strata: 3 PCP: Dr Palma Specialists: GAUTAM/cardiology. Dr John-oncology. Dr Yepez-radiation oncology Preferred Pharmacy: [facility] Insurance: [facility] Prescription Benefit:?yes. LNOK: Dipti Bernabe. Son. 2 grandsons: Ian and Sae Living Arrangements: Pt lives w/, daughter, son-in-law, and grandson, Ian in split-level home w/2-3 steps to enter. Family assists her up the stairs into the home. Once in the home, there is a stair lift to go up to 2nd level. Pt mostly independent w/ADL's and she manages her own medications. does assist w/showering. Pt able to complete some home mgnt tasks. Family does her laundry and assists w/other home mgnt tasks as needed. Good family support. Transportation:?family or [facility] van DME: States has the following DME:?chair lift, walk-in shower w/shower chair, grab bars, 2 walkers (one on each floor), BP machine, pulse ox, extended toilet seat, rollator, cane, W/C, motorized scooter. No home O2. Home O2 set-up process explained. Pt states to use [employer] if home O2 is needed @ dc. Pt states no need for further DME at this time.? HHC/SNF: No hx of SNF. Pt has had [facility] the past Discussed discharge planning. Pt prefers to discharge home, if able, and states would like [facility] again, declining list of other HHC options. She did state, though, she has been weak, and if needed, would be amenable to a SNF. PT/OT evals pending. ? CM?to follow for home oxygen needs and any further discharge planning/needs.? Pt voices no further concerns/needs at this time.? Advised pt to ask for?CM?if any further questions/concerns/needs arise.? Voices understanding. ? PLAN:??TBD, pending therapy evals. SNF vs Home w/HHC. Follow for any oxygen needs @ discharge. ? Isabel BSN?RN?CM
--- NOTE | 2025-03-07 14:13 | CASEMGMT ---
Discharge Planning A list of?SNF providers including quality and resource use data and consistent with the patient's preferred geographic region, medical needs, and insurance network was created in [employer] Guide.? This list was provided to the RN BRITANY. Ilda Mahan, Discharge Planning Asst.
[2025-03-07] MEDS: APIXABAN 2.5 MG TABLET (WCH) PO (21:24)
[2025-03-08] VITALS (7 sets, daily range): BP systolic 91–105; BP diastolic 47–67; PULSE 81–97; RESP 17–18; TEMP 36.3–36.7; O2SAT 93–100
[2025-03-08] MEDS: Furosemide 500 MG in Empty Viaflex 50 mL 1 EACH CONT INF (05:26)
[2025-03-08 06:03] LABS: Hematocrit 39.6 % (37-47); Hemoglobin 12.6 g/dL (12.0-15.0); Immature Granulocytes Count 0.020 X10^3/uL (0.0-0.0); Mean Corp Hgb Conc 31.8 g/dL (32-36); Mean Corpuscular Volume 93.4 fL (81-99); Mean Platelet Vol. 11.7 fl (6.2-12.0); NRBC Flagged by Analyzer 0.3 % (0-5); POSITIVE DIFFERENTIAL YES; Platelet Count 178 K/mm3 (150-450); RBC Distribution Width CV 18.2 % (11.6-14.6); RBC Distribution Width SD 61.2 fl (35.1-43.9); Red Blood Count 4.24 M/mm3 (4.2-5.4); White Blood Count 5.8 K/mm3 (4.4-11.0)
[2025-03-08 06:38] LABS: AST(SGOT) 43 U/L (<=31); Alanine Aminotransfer ALT/SGPT 35 U/L (<=34); Albumin, Serum 3.0 g/dL (3.4-4.8); Alkaline Phosphatase 45 U/L (35-104); Anion Gap 13 (5-15); BUN 60 mg/dL (4-19); BUN/Creat Ratio 30.4 RATIO (10-20); Calcium,Total 9.1 mg/dL (7.6-11.0); Carbon Dioxide 21.7 mmol/L (21.0-32.0); Chloride 102 mmol/L (98-108); Estimated Creatinine Clearance 17.38 ml/min (50-250); Globulin 3.0 g/dL (2.2-4.2); Glucose 108 mg/dL (70-99); Magnesium 1.9 mg/dL (1.5-2.2); Potassium 4.1 mmol/L (3.3-5.1)
--- NOTE | 2025-03-08 07:58 | PN.HOSP_ITS ---
Reason for Visit Chief Complaint: Weakness Subjective Subjective No issues overnight. Patient states she is anxious to get out of bed to the chair and move around some. Swelling does seem to be a little bit better. Legs are still very tender. Objective Data Objective Data Vital Signs: Vital Signs Temp Pulse Resp BP Pulse Ox O2 Del Method 97.6 F L 87 18 91/52 L 94 Room Air 03/08/25 04:08 03/08/25 04:08 03/08/25 04:08 03/08/25 04:08 03/08/25 04:08 03/08/25 04:08 Oxygen Delivery Method Room Air Weight: 74.6 kg Body Mass Index (BMI) 34.3 Intake & Output: Intake and Output for Last 24 Hours 03/06/25 03/07/25 03/08/25 23:59 23:59 23:59 Intake Total 530 / 530 60 / 60 92.25 / 92.25 Output Total 4200 / 4200 950 / 950 Balance 530 / 530 -4140 / -4140 -857.75 / -857.75 Lab / Micro Data 03/08/25 05:33 03/08/25 05:33 Labs: Laboratory Results - last 24 hr 03/08/25 05:33: WBC 5.8, RBC 4.24, Hgb 12.6, Hct 39.6, MCV 93.4, MCH 29.7, MCHC 31.8 L, RDW Std Deviation 61.2 H, RDW Coeff of Kierra 18.2 H, Plt Count 178, MPV 11.7, Immature Gran % (Auto) 0.300, Neut % (Auto) 72.1 H, Lymph % (Auto) 9.9 L, Rowan % (Auto) 14.3 H, Eos % (Auto) 3.1, Baso % (Auto) 0.3, Absolute Neuts (auto) 4.1, Absolute Lymphs (auto) 0.57 L, Nucleated RBC % 0.3, Sodium 136, Potassium 4.1, Chloride 102, Carbon Dioxide 21.7, Anion Gap 13, BUN 60 H, Creatinine 1.98 H, Estim Creat Clear Calc 17.38 L, Est GFR (MDRD) Non-Af 24 L, BUN/Creatinine Ratio 30.4 H, Glucose 108 H, Calcium 9.1, Phosphorus 4.1, Magnesium 1.9, Total Bilirubin 0.77, AST 43 H, ALT 35, Alkaline Phosphatase 45, Total Protein 6.0, A lbumin 3.0 L, Globulin 3.0, Albumin/Globulin Ratio 1.0 Radiography Diagnostic Testing: Radiology Impression Echocardiogram 03/06/25 17:46 Interpretation Summary The left ventricular ejection fraction is 45 %. Normal LV size. D shaped septum in systole and diastole. Moderately dilated right ventricle. Mild to moderate global right ventricular systolic dysfunction. Moderate (2+) eccentric mitral valve insufficiency. Moderate pulmonary hypertension. Pulmonary artery systolic pressure is 60 mmHg. Ordering Physician: Stefano Black Referring Physician: Waqas Palma Performed By: Jenn Hanson RCS Rhythm Strip Rhythm Strip: A-fib (Subsequent strip showing rate controlled atrial fibrillation) Rate: 115 Ectopy: None Physical Exam Const alert, oriented x3, no apparent distress and well nourished; Negative for average body habitus or healthy appearing Constitutional Narrative: Very pleasant, elderly, white female, obese, sitting up in bed watching television, appears comfortable, nontoxic General Appearance: cooperative HEENT normocephalic, head/scalp atraumatic and moist oral mucous membranes; Negative for hearing grossly normal bilaterally HEENT Narrative: Moderate to marked hearing loss, Mallampati is 2, no thrush Neck supple Neck Narrative: Patient still with markedly distended neck veins with hepatojugular reflex positivity and JVD Resp normal respiratory effort, no retractions, no use of accessory muscles and clear to auscultation bilaterally Resp Narrative: Diminished at bases bilaterally no significant crackles appreciated Auscultation: Negative for crackles, rhonchi or wheezes Cardio regular rate, S1 normal heart sound, S2 normal heart sound, no rub and no clicks; Negative for regular rhythm, no murmurs or no gallops Cardio Narrative: S3 gallop present, currently in A-fib with an irregularly irregular rhythm but good rate control GI normal to inspection, nondistended, normoactive bowel sounds, soft to palpation and non-tender GI Narrative: Still with anasarca up into the abdomen but less so Extremity Extremity Narrative: Marked anasarca bilateral lower extremities up into her thighs and abdomen, buttocks, no cyanosis or clubbing Neuro moves all extremities and no focal motor deficits Speech: speech normal Psych affect normal Psych Narrative: Very pleasant, mildly anxious, interacts appropriately Assessment & Plan Assessment/Plan (1) Bilateral pleural effusion: (2) Atrial fibrillation with rapid ventricular response: (3) KENNEY (acute kidney injury): PLAN: Plan Acute systolic and diastolic heart failure on chronic diastolic heart failure/moderate MR - Suspect weight gain is related to her diuretic change and change in EF - Previous EF was normal but most recent echocardiogram shows global dysfunction with an EF of 45% in addition to moderate MR - She also has pulmonary hypertension and some RV dysfunction likely related to her marked volume overload - Continue aggressive diuresis and repeat her echocardiogram in about 6 weeks as the right-sided dysfunction and pulmonary hypertension should improve - Her EF of 45% is likely an overestimate with her mitral valve dysfunction - Continue Lasix drip--> patient is -4468 cc for the hospitalization thus far -Will dose metolazone x 1 at 5 mg a day to push diuresis a bit - Continue fluid restriction - Continue sodium restriction - Consider praneeth wraps once legs are less tender and edema is more improved in current state - Will need outpatient follow-up after discharge - Will add on appropriate goal-directed therapy as able to include Jardiance or Farxiga and possibly hydralazine/nitrates - Would avoid PRANEETH inhibitor due to renal function at baseline - Palliative care was consulted and CODE STATUS was able to be changed to DNR CCA with intubation-appreciate ongoing input KENNEY on CKD stage IIIb secondary to cardiorenal syndrome - Baseline renal function looks to be between 1.2 and 1.4 - May need to accept a slightly higher creatinine with her heart failure - Renal function continues to improve with diuresis suggesting cardiorenal syndrome - Avoid nephrotoxin and repeat CBC in a.m. - Will hold Aldactone at this time Bilateral pleural effusions Control repeat chest x-ray on Monday and if pleural effusions are not improving may need thoracentesis Hyperkalemia - Resolved Paroxysmal atrial fibrillation - Continue apixaban 2.5 mg p.o. twice daily and will likely need change at discharge due to age and CKD per insert guidelines - Currently in sinus rhythm but is having some frequent ectopy so may have some paroxysmal A-fib while she is hospitalized - Continue home beta-danya - On presentation was in A-fib with RVR GERD - Continue PPI Bilateral lower leg pain - Highly suspect related to severe volume overload - Continue as needed medication - Imaging is unremarkable other than arthritis Generalized weakness/debility - PT/OT following - Case management/social work following and anticipate patient will need placement at discharge -List has been obtained by case management -Once getting close medically stable will initiate pre-CERT - Will likely need placement at discharge History of breast cancer - Continue home tamoxifen - Ongoing outpatient follow-up with oncology DVT prophylaxis - Continue Eliquis 2.5 mg p.o. twice daily CODE STATUS - DNR CCA okay for short-term intubation but no trach or PEG Charges/Coding Visit Charges Inpatient E&M: 78802 Subs Hosp L2
[2025-03-08] MEDS: APIXABAN 2.5 MG TABLET (WCH) PO ×2 (08:35→20:40)
[2025-03-08] MEDS: Cholecalciferol (VIT D3) 25 MCG TABLET (1,000 UNITS) 50 MCG PO (08:37)
--- NOTE | 2025-03-08 09:30 | CASEMGMT ---
INEZ GARG NOTE: RN BRITANY to room to obtain top 3 SNF preferences. INEZ GARG spoke w/dtrDipti, on the phone. Questions answered. Per Dipti top 3 preferences are: 1) [facility] 2) [facility] 3) [facility]. Isabel CALVILLON INEZ GARG
--- NOTE | 2025-03-08 10:04 | CASEMGMT ---
Social Work Pt's choices for SNF are 1. [facility] and 2. [facility]. Initial referral sent via [facility] to [facility]. SW/CM will continue to follow. ISREAL Quiñones
[2025-03-08] MEDS: 0.9% Saline Lock 10 ML Syringe IV (21:00)
[2025-03-09] VITALS (7 sets, daily range): BP systolic 101–113; BP diastolic 52–79; PULSE 80–101; RESP 18; TEMP 36.6–36.9; O2SAT 96–98
[2025-03-09 05:30] LABS: Anion Gap 14 (5-15); BUN 59 mg/dL (4-19); BUN/Creat Ratio 33.0 RATIO (10-20); Calcium,Total 8.9 mg/dL (7.6-11.0); Carbon Dioxide 25.4 mmol/L (21.0-32.0); Chloride 98 mmol/L (98-108); Estimated Creatinine Clearance 19.33 ml/min (50-250); Glucose 138 mg/dL (70-99); Magnesium 1.7 mg/dL (1.5-2.2); Potassium 3.3 mmol/L (3.3-5.1)
--- NOTE | 2025-03-09 05:45 | RAD_ITS ---
PROCEDURE: CHEST 1 VIEW (PORTABLE) 03/09/2025 REASON FOR EXAM: PLEURAL EFFUSIONS TECHNIQUE: Frontal view of the chest. COMPARISON: 03/06/2025 FINDINGS: Hardware: None. Heart: Heart size is mildly enlarged. Lungs: Persistent small right and moderate left pleural effusions, superimposed consolidation not excluded. Diffuse pulmonary vascular congestion. No pneumothorax. Bones: The bones are unremarkable. RAD/Chest 1 View (Portable) IMPRESSION: No significant interval change. Reading [facility]
--- NOTE | 2025-03-09 07:13 | PCM.PN.HOSP ---
Reason for Visit Chief Complaint: Weakness Subjective Subjective Patient states she is frustrated and feels like she is not making any progress. I assured her she is making progress as she is negative almost 10 L of fluid. We did discuss the fact that she still has a fairly sizable left pleural effusion which will require thoracentesis I explained the process. I will update her daughter as well. I discussed this with her. She is concerned because she is very weak. We did rediscuss the fact that she would need to go somewhere for strengthening prior to returning home. She is reluctant but seems to understand. Objective Data Objective Data Vital Signs: Vital Signs Temp Pulse Resp BP Pulse Ox O2 Del Method 97.9 F 88 18 105/52 L 96 Room Air 03/09/25 02:00 03/09/25 02:00 03/09/25 02:00 03/09/25 02:00 03/09/25 02:00 03/09/25 02:47 Oxygen Delivery Method Room Air Weight: 74.6 kg Body Mass Index (BMI) 34.3 Intake & Output: Intake and Output for Last 24 Hours 03/07/25 03/08/25 03/09/25 23:59 23:59 23:59 Intake Total 60 / 60 492.25 / 612.25 120 / 120 Output Total 4200 / 4200 4250 / 4950 2150 / 2150 Balance -4140 / -4140 -3757.75 / -4337.75 -2029 / -2029 Lab / Micro Data 03/08/25 05:33 03/09/25 04:38 Labs: Laboratory Results - last 24 hr 03/09/25 04:38: Sodium 137, Potassium 3.3, Chloride 98, Carbon Dioxide 25.4, Anion Gap 14, BUN 59 H, Creatinine 1.78 H, Estim Creat Clear Calc 19.33 L, Est GFR (MDRD) Non-Af 27 L, BUN/Creatinine Ratio 33.0 H, Glucose 138 H, Calcium 8.9, Magnesium 1.7 Rhythm Strip Rhythm Strip: A-fib (Subsequent strip showing rate controlled atrial fibrillation) Rate: 115 Ectopy: None Physical Exam Const alert, oriented x3, no apparent distress and well nourished; Negative for average body habitus or healthy appearing Constitutional Narrative: Very pleasant, elderly, white female, obese, sitting up in a chair at the bedside, watching television, appears comfortable, nontoxic General Appearance: cooperative HEENT normocephalic, head/scalp atraumatic and moist oral mucous membranes; Negative for hearing grossly normal bilaterally HEENT Narrative: Marked hearing loss, Mallampati 2, no thrush, dentures in place Eyes conjunctivae normal Eyes Narrative: No scleral icterus Neck supple Neck Narrative: Neck veins with significantly less distention, trachea midline Resp normal respiratory effort, no retractions, no use of accessory muscles and clear to auscultation bilaterally Resp Narrative: Diminished at bases bilaterally no significant crackles appreciated Auscultation: Negative for crackles, rhonchi or wheezes Cardio regular rate, S1 normal heart sound, S2 normal heart sound, no rub and no clicks; Negative for regular rhythm, no murmurs or no gallops Cardio Narrative: S3 gallop remains present, currently in A-fib with an irregularly irregular rhythm but good rate control GI normal to inspection, nondistended, normoactive bowel sounds, soft to palpation and non-tender Extremity Extremity Narrative: Edema is still present and pitting in nature but tissue seems to be softening and edema is improving, no cyanosis or clubbing Skin Skin Narrative: No significant notable skin breakdown despite edema Neuro moves all extremities and no focal motor deficits Speech: speech normal Psych affect normal Psych Narrative: Very pleasant, remains a bit anxious about upcoming plans and progress Assessment & Plan Assessment/Plan (1) Bilateral pleural effusion: (2) Atrial fibrillation with rapid ventricular response: (3) KENNEY (acute kidney injury): PLAN: Plan Acute systolic and diastolic heart failure on chronic diastolic heart failure/moderate MR - Suspect weight gain is related to her diuretic change and change in EF - Previous EF was normal but most recent echocardiogram shows global dysfunction with an EF of 45% in addition to moderate MR - She also has pulmonary hypertension and some RV dysfunction likely related to her marked volume overload - Continue aggressive diuresis and repeat her echocardiogram in about 6 weeks as the right-sided dysfunction and pulmonary hypertension should improve - Her EF of 45% is likely an overestimate with her mitral valve dysfunction - Continue Lasix drip--> patient is -9400cc for the hospitalization thus far - Repeat metolazone 5 mg to push diuresis and continue to reevaluate need on a daily basis - Continue fluid restriction - Continue sodium restriction - Consider praneeth wraps once legs are less tender and edema is more improved in current state -Current goal-directed therapy and monitor for tolerance -Decrease metoprolol 50 mg p.o. twice daily to 25 mg p.o. twice daily -Add low-dose hydralazine at 10 mg twice daily -Consider adding nitrates if blood pressure remains stable over the next 24 hours -Add Jardiance 10 mg - Would avoid PRANEETH inhibitor due to renal function at baseline - Palliative care was consulted and CODE STATUS was able to be changed to DNR CCA with intubation-appreciate ongoing input KENNEY on CKD stage IIIb secondary to cardiorenal syndrome - Baseline renal function looks to be between 1.2 and 1.4 - May need to accept a slightly higher creatinine with her heart failure - Renal function continues to improve with diuresis suggesting cardiorenal syndrome - Avoid nephrotoxin and repeat CBC in a.m. - Will hold Aldactone at this time Bilateral pleural effusions Control repeat chest x-ray on Monday and if pleural effusions are not improving may need thoracentesis Paroxysmal atrial fibrillation - Continue apixaban 2.5 mg p.o. twice daily and will likely need change at discharge due to age and CKD per insert guidelines - Currently in sinus rhythm but is having some frequent ectopy so may have some paroxysmal A-fib while she is hospitalized - Continue home beta-danya - On presentation was in A-fib with RVR GERD - Continue PPI Bilateral lower leg pain - Highly suspect related to severe volume overload - Continue as needed medication - Imaging is unremarkable other than arthritis Generalized weakness/debility - PT/OT following - Case management/social work following and anticipate patient will need placement at discharge -List has been obtained by case management -Once getting close medically stable will initiate pre-CERT - Will likely need placement at discharge History of breast cancer - Continue home tamoxifen - Ongoing outpatient follow-up with oncology Urinary incontinence - Continue tolterodine DVT prophylaxis - Continue Eliquis 2.5 mg p.o. twice daily CODE STATUS - DNR CCA okay for short-term intubation but no trach or PEG Charges/Coding Visit Charges Inpatient E&M: 82734 [facility] L3
[2025-03-09] MEDS: Cholecalciferol (VIT D3) 25 MCG TABLET (1,000 UNITS) 50 MCG PO (09:10)
[2025-03-09] MEDS: Senna Tablet 2 TABLET PO ×2 (10:15→21:28)
[2025-03-09] MEDS: Potassium Chloride Oral Tablet 20 MEQ 40 MEQ PO (10:15)
[2025-03-09] MEDS: Polyethylene Glycol 3350 17 GM PACKET PO (13:38)
[2025-03-10] VITALS (9 sets, daily range): BP systolic 97–110; BP diastolic 53–70; PULSE 88–99; RESP 16–18; TEMP 36.2–36.8; O2SAT 94–98
[2025-03-10 04:33] LABS: LDH 230 U/L (84-246)
[2025-03-10] MEDS: Furosemide 500 MG in Empty Viaflex 50 mL 1 EACH CONT INF (06:07)
--- NOTE | 2025-03-10 07:00 | US_ITS ---
PROCEDURE: THORACENTESIS W US N/A REASON FOR EXAM: LARGE LEFT PLEURAL EFFUSION TECHNIQUE: THORACENTESIS W US. The procedure as well as the benefits and possible complications including infection and bleeding were explained to the patient. Informed consent was obtained. The overlying skin was prepped and draped in the usual sterile fashion. Following local anesthetic application and under direct sonographic guidance, a 5 Syrian catheter was placed into the left thorax. 870 mL of alexander colored fluid was aspirated. A specimen was sent to the laboratory. The patient tolerated the procedure well. No immediate complication was present. COMPARISON: None FINDINGS: Successful left ultrasound-guided thoracentesis. US/Thoracentesis W US IMPRESSION: Successful ultrasound-guided left thoracentesis. Patient tolerated the procedu re well. Reading Location: [facility]
--- NOTE | 2025-03-10 08:58 | CASEMGMT ---
Addendum entered by Ilda Mahan 03/10/25 10:29: [facility] has declined d/t not having a private room for pts precautions. SW updated. Original Note: Discharge Planning Updates sent via [facility]Port to [facility]. Acceptance pending. Ilda Mahan DC Planning Asst.
[2025-03-10] MEDS: Senna Tablet 2 TABLET PO ×2 (10:27→21:15)
[2025-03-10] MEDS: Cholecalciferol (VIT D3) 25 MCG TABLET (1,000 UNITS) 50 MCG PO (10:29)
--- NOTE | 2025-03-10 10:29 | CASEMGMT ---
Addendum entered by Ilda Mahan 03/10/25 10:56: [facility] has declined d/t being [id number]. Original Note: [facility]. Ilda Mahan DC Planning Asst.
[2025-03-10 10:31] LABS: Anion Gap 14 (5-15); BUN 58 mg/dL (4-19); BUN/Creat Ratio 31.4 RATIO (10-20); Calcium,Total 8.8 mg/dL (7.6-11.0); Carbon Dioxide 27.1 mmol/L (21.0-32.0); Chloride 93 mmol/L (98-108); Estimated Creatinine Clearance 18.80 ml/min (50-250); Glucose 133 mg/dL (70-99); Potassium 3.6 mmol/L (3.3-5.1)
[2025-03-10] MEDS: 0.9% Saline Lock 10 ML Syringe IV ×2 (10:38→17:13)
[2025-03-10] MEDS: Polyethylene Glycol 3350 17 GM PACKET PO (10:41)
[2025-03-10] MEDS: Lidocaine 2% (20 ml mdv) 20 ML Vial INFILT (11:45)
--- NOTE | 2025-03-10 11:50 | FLU_PTH ---
PATIENT: NESTOR MONTES DE OCA I LOC: [facility] U#:[id number] AGE/SX: 89/F ROOM: [facility] RE03/06/[address]: Dr. Russell John MD : [id number] BED: 1 DIS: 03/12/2025 SPEC #: [id number] RECD: 03/10/25 12:10 STATUS: ERNIE GRAY #: [id number] LAVELL: 03/10/25 11:[address]: Russell John DEPT: CYTOLOGY RECD BY: Cl Saha ENTERED: 03/11/25 09:29 SP TYPE: Fluid OTHR DR: DO Dr. Jaimie Pedraza DO Dr. Paul Nielsen, MD Tissues: A - Pleural fluid, NOS Procedures: Special Stain Group II Surgery Specimen Level IV Cytospin Fluid HEADER OPERATION: Ultrasound guided thoracentesis fluid PRE-OP DIAGNOSIS: Pleural effusion, left TISSUE SUBMITTED: A- Thoracentesis fluid for cytology DIAGNOSIS CYTOLOGY A. Left pleural effusion, thoracentesis (cytospin, cellblock): - Atypical cells suspicious for malignancy - see note. Note: One large group of atypical epithelioid cells is observed on the cytospin. No such cells are seen in the cellblock, therefore further assessment with IHC is not possible. CYTOLOGY STUDY Slides are reviewed. CYTOLOGY GROSS A. Received is ~85 ml of yellow-cloudy fluid labeled with the patient's name and and designated per the requisition as Thoracentesis fluid. Submitted for cytology and cell block preparation. Mr 03/11/25 CPT: 14095,22953
--- NOTE | 2025-03-10 11:55 | RAD_ITS ---
PROCEDURE: CHEST INSP/EXP 2 VIEW 03/10/2025 REASON FOR EXAM: POST THORACENTEIS TECHNIQUE: Procedure Code: [id number] Modality: DX Procedure: CHEST INSP/EXP 2 VIEW AP inspiration expiration views were obtained following the left thoracentesis. COMPARISON: March 06, 2025. FINDINGS: The patient is status post left thoracentesis. No evidence of pneumothorax on the immediate post left thoracentesis. RAD/Chest Insp/Exp 2 View IMPRESSION: No evidence of pneumothorax on the immediate post left thoracentesis examinatio n. Reading Location: [place] [address]
[2025-03-10 12:21] LABS: Cytology, Body Fluid / CSF SEE PATHOLOGY REPORT
--- NOTE | 2025-03-10 12:36 | PN.HOSP_ITS ---
Subjective Subjective No issues overnight, currently on room air. Will discontinue the Lasix drip Objective Data Objective Data Vital Signs: Vital Signs Temp Pulse Resp BP Pulse Ox O2 Del Method 97.5 F L 93 18 110/54 L 97 Room Air 03/10/25 10:15 03/10/25 12:00 03/10/25 12:00 03/10/25 12:00 03/10/25 10:15 03/10/25 12:00 Oxygen Delivery Method Room Air Weight: 164 lb 7.437 oz Body Mass Index (BMI) 34.3 Intake & Output: Intake and Output for Last 24 Hours 03/09/25 03/10/25 03/11/25 03:59 03:59 03:59 Intake Total 612.25 / 612.25 800 / 800 488.68 / 488.68 Output Total 4950 / 4950 4400 / 4400 2420 / 2420 Balance -4337.75 / -4337.75 -3600 / -3600 -1931.32 / -1931.32 Lab / Micro Data 03/08/25 05:33 03/10/25 03:59 Labs: Laboratory Results - last 24 hr 03/10/25 03:59: Sodium 134, Potassium 3.6, Chloride 93 L, Carbon Dioxide 27.1, Anion Gap 14, BUN 58 H, Creatinine 1.83 H, Estim Creat Clear Calc 18.80 L, Est GFR (MDRD) Non-Af 26 L, BUN/Creatinine Ratio 31.4 H, Glucose 133 H, Calcium 8.8, Lactate Dehydrogenase 230 Radiography Diagnostic Testing: Radiology Impression Chest X-Ray 03/09/25 05:45 IMPRESSION: No significant interval change. Reading Location: [facility] Thoracentesis Ultrasound 03/10/25 07:00 IMPRESSION: Successful ultrasound-guided left thoracentesis. Patient tolerated the procedure well. Reading Location: [facility] Chest X-Ray 03/10/25 11:55 IMPRESSION: No evidence of pneumothorax on the immediate post left thoracentesis examination. Reading Location: [facility] Rhythm Strip Rhythm Strip: A-fib (Subsequent strip showing rate controlled atrial fibrillation) Rate: 115 Ectopy: None Physical Exam Narrative General: Alert, Oriented x3, Cooperative, No apparent distress HEENT: Atraumatic, PERRLA, EOMI, Normocephalic Oral: Moist Mucosa Neck: Supple, No JVD Lungs: Diminished, Normal air movement, No rhonchi, No wheeze, No rales Cardiovascular: Regular rate, Regular Rhythm, Normal S1, Normal S2, No murmurs Abdomen: Soft, Non Tender, Non-Distended, No Hepato-splenomegaly Extremities: Edema, Capillary Refill Less than 3 Seconds Skin: No rashes, No breakdown Musculoskeletal: No Tenderness to Palpation of Joints or Extremities Neurological: No focal neurological deficits, moves all extremities Psych/Mental Status: Normal Affect, Appropriate Assessment & Plan Assessment/Plan (1) Bilateral pleural effusion: (2) Atrial fibrillation with rapid ventricular response: (3) KENNEY (acute kidney injury): PLAN: Plan 1. Acute on chronic diastolic CHF with moderate MR/KENNEY on CKD 3/bilateral pleural effusions/paroxysmal A-fib ? Discontinue her Lasix drip she did have improvement in her kidney function, baseline is 1.2-1.4 ? Transition to twice daily dosing of Lasix IV 40 mg ? Plan for left thoracentesis today ? She has been diuresed to a balance of -13,000 ml ? Her metoprolol was decreased to 25 mg p.o. twice daily, she was added on hydralazine 10 mg twice daily as well as Jardiance for goal-directed therapy ? ACEs and ARB's were not initiated secondary to renal function ? Appreciate palliative care's assistance ? Continue with Eliquis ? Can likely restart her Aldactone in the next 24 to 48 hours ? PT/OT for her generalized weakness, will probably need SNF 2. GERD ? Stable ? Continue with PPI 3. History of breast cancer ? Continue with tamoxifen DVT: Eliquis Charges/Coding Visit Charges Inpatient E&M: 11595 Subs Hosp L2
--- NOTE | 2025-03-10 13:34 | CASEMGMT ---
Addendum entered by Nola Lang 03/11/25 10:26: INEZ GARG updated by Judith in TCU that they are able to accept and will submit for precert. INEZ GARG in to patient room, INEZ GARG updated patient regarding denials from [facility] and [facility]. INEZ GARG informed patient that she has been accepted by TCU and waiting for insurance approval. Patient voiced understanding and requested this INEZ GARG update daughter. INEZ GARG called daughter Gloria and updated regarding denials by [facility] and [facility], and acceptance for TCU. Daughter voiced appreciation and had no further questions or concerns. CM will continue to follow this patient and plan for a safe discharge. Original Note: INEZ GARG [facility] [place]. INEZ GARG made referral to [facility] patient next preference, awaiting response. CM will continue to follow this patient and plan for a safe discharge.
[2025-03-10 13:37] LABS: Glucose, Body Fluid 152 mg/dL (Not Establ.)
[2025-03-10 14:47] LABS: Body Fluid Mononuclear WBC # 0.079 10^3/uL; Body Fluid Mononuclear WBC % 86.9 %; Body Fluid Polynuclear WBC # 0.012 10^3/uL; Body Fluid Polynuclear WBC % 13.1 %; White Blood Count/Body Fluid 0.091 10^3/uL
[2025-03-10 15:28] LABS: Auto B Fluid Analyzer BKGD Ct COUNTS W/IN LIMITS (W/IN LIMITS); Source- Body Fluid PLEURAL FLUID/LEFT
[2025-03-10 15:33] LABS: Appearance/Body Fluid CLEAR; Color/Body Fluid LT YEL
[2025-03-10 16:04] LABS: Body Fluid QC Type(s) BF1Q
[2025-03-10 16:54] LABS: Red Cell Count/Body Fluid 29 /mm3
[2025-03-10 18:26] LABS: Neutrophil (Segs) 9 %
[2025-03-11] VITALS (7 sets, daily range): BP systolic 86–101; BP diastolic 43–81; PULSE 85–117; RESP 16–18; TEMP 36.2–36.8; O2SAT 94–100
[2025-03-11 05:57] LABS: Hematocrit 37.7 % (37-47); Hemoglobin 12.3 g/dL (12.0-15.0); Immature Granulocytes Count 0.010 X10^3/uL (0.0-0.0); Mean Corp Hgb Conc 32.6 g/dL (32-36); Mean Corpuscular Volume 90.0 fL (81-99); Mean Platelet Vol. 11.7 fl (6.2-12.0); NRBC Flagged by Analyzer 0 % (0-5); Platelet Count 165 K/mm3 (150-450); RBC Distribution Width CV 17.0 % (11.6-14.6); RBC Distribution Width SD 54.5 fl (35.1-43.9); Red Blood Count 4.19 M/mm3 (4.2-5.4); White Blood Count 6.3 K/mm3 (4.4-11.0)
[2025-03-11 06:25] LABS: Anion Gap 10 (5-15); BUN 51 mg/dL (4-19); BUN/Creat Ratio 32.3 RATIO (10-20); Calcium,Total 8.5 mg/dL (7.6-11.0); Carbon Dioxide 32.7 mmol/L (21.0-32.0); Chloride 88 mmol/L (98-108); Estimated Creatinine Clearance 21.91 ml/min (50-250); Glucose 153 mg/dL (70-99); Potassium 2.9 mmol/L (3.3-5.1)
[2025-03-11] MEDS: Senna Tablet 2 TABLET PO ×2 (09:13→21:17)
[2025-03-11] MEDS: Cholecalciferol (VIT D3) 25 MCG TABLET (1,000 UNITS) 50 MCG PO (09:13)
[2025-03-11] MEDS: Polyethylene Glycol 3350 17 GM PACKET PO (09:23)
--- NOTE | 2025-03-11 10:18 | PCM.PN.HOSP ---
Subjective Subjective Doing well, no issues overnight. Breathing better and is back to room air Objective Data Objective Data Vital Signs: Vital Signs Temp Pulse Resp BP Pulse Ox O2 Del Method 97.7 F L 117 H 18 92/81 H 94 Room Air 03/11/25 09:10 03/11/25 09:10 03/11/25 09:10 03/11/25 09:10 03/11/25 09:10 03/11/25 09:10 Oxygen Delivery Method Room Air Weight: 164 lb 7.437 oz Body Mass Index (BMI) 34.3 Intake & Output: Intake and Output for Last 24 Hours 03/10/25 03/11/25 03/12/25 03:59 03:59 03:59 Intake Total 800 / 800 1178.68 / 1178.68 Output Total 4400 / 4400 5170 / 5170 Balance -3600 / -3600 -3991.32 / -3991.32 Lab / Micro Data 03/11/25 05:47 03/11/25 05:47 Labs: Laboratory Results - last 24 hr 03/09/25 12:18: Fluid Glucose 152, Fluid Total Protein 2.8, Fluid LDH 78 03/10/25 03:59: Sodium 134, Potassium 3.6, Chloride 93 L, Carbon Dioxide 27.1, Anion Gap 14, BUN 58 H, Creatinine 1.83 H, Estim Creat Clear Calc 18.80 L, Est GFR (MDRD) Non-Af 26 L, BUN/Creatinine Ratio 31.4 H, Glucose 133 H, Calcium 8.8 03/10/25 12:18: Fluid Source PLEURAL FLUID/LEFT, Fluid Color LT YEL, Fluid Appearance CLEAR, Fluid WBC 0.091, Fluid RBC 29, Fluid Tot Cell Count 0.107 H, Fld Polynuclear WBCs # 0.012, Fld Polynuclear WBCs % 13.1, Fluid Mononuclear WBCs 0.079, Fld Mononuclear WBCs % 86.9, Fluid Neutrophils 9, Fluid Lymphocytes 31, Fluid Monocytes 10, Fluid Macrophages 48, Fld Mesothelial Cells 2, Fl Pathologist Comment May follow, Fluid Comment 2 SEE COMMENT 03/11/25 05:47: WBC 6.3, RBC 4.19 L, Hgb 12.3, Hct 37.7, MCV 90.0, MCH 29.4, MCHC 32.6, RDW Std Deviation 54.5 H, RDW Coeff of Kierra 17.0 H, Plt Count 165, MPV 11.7, Immature Gran % (Auto) 0.200, Neut % (Auto) 73.9 H, Lymph % (Auto) 9.7 L, [place] % (Auto) 12.9 H, Eos % (Auto) 3.0, Baso % (Auto) 0.3, Absolute Neuts (auto) 4.6, Absolute Lymphs (auto) 0.61 L, Nucleated RBC % 0, Sodium 131 L, Potassium 2.9 L, Chloride 88 L, Carbon Dioxide 32.7 H, Anion Gap 10, BUN 51 H, Creatinine 1.57 H, Estim Creat Clear Calc 21.91 L, Est GFR (MDRD) Non-Af 31 L, BUN/Creatinine Ratio 32.3 H, Glucose 153 H, Calcium 8.5 Radiography Diagnostic Testing: Radiology Impression Thoracentesis Ultrasound 03/10/25 07:00 IMPRESSION: Successful ultrasound-guided left thoracentesis. Patient tolerated the procedure well. Reading Location: [facility]--1 Chest X-Ray 03/10/25 11:55 IMPRESSION: No evidence of pneumothorax on the immediate post left thoracentesis examination. Reading Location: [facility]--1 Rhythm Strip Rhythm Strip: A-fib (Subsequent strip showing rate controlled atrial fibrillation) Rate: 115 Ectopy: None Physical Exam Narrative General: Alert, Oriented x3, Cooperative, No apparent distress HEENT: Atraumatic, PERRLA, EOMI, Normocephalic Oral: Moist Mucosa Neck: Supple, No JVD Lungs: Diminished, Normal air movement, No rhonchi, No wheeze, No rales Cardiovascular: Regular rate, Regular Rhythm, Normal S1, Normal S2, No murmurs Abdomen: Soft, Non Tender, Non-Distended, No Hepato-splenomegaly Extremities: Slight edema, Capillary Refill Less than 3 Seconds Skin: No rashes, No breakdown Musculoskeletal: No Tenderness to Palpation of Joints or Extremities Neurological: No focal neurological deficits, moves all extremities Psych/Mental Status: Normal Affect, Appropriate Assessment & Plan Assessment/Plan (1) Bilateral pleural effusion: (2) Atrial fibrillation with rapid ventricular response: (3) KENNEY (acute kidney injury): PLAN: Plan 1. Acute on chronic diastolic CHF with moderate MR/KENNEY on CKD 3/bilateral pleural effusions/paroxysmal A-fib ? Discontinue her Lasix drip she did have improvement in her kidney function, baseline is 1.2-1.4 ?Continue with twice daily dosing of Lasix IV 40 mg ? Plan for left thoracentesis today ? She has been diuresed to a balance of -13,000 ml ? Her metoprolol was decreased to 25 mg p.o. twice daily, she was added on hydralazine 10 mg twice daily as well as Jardiance for goal-directed therapy however blood pressures have been soft therefore we will discontinue hydralazine today but continue with her other home medications ? ACEs and ARB's were not initiated secondary to renal function ? Appreciate palliative care's assistance ? Continue with Eliquis ? Can likely restart her Aldactone in the next 24 to 48 hours ? PT/OT for her generalized weakness, will probably need SNF 2. GERD ? Stable ? Continue with PPI 3. History of breast cancer ? Continue with tamoxifen DVT: Eliquis Charges/Coding Visit Charges Inpatient E&M: 64319 Subs Hosp L2
[2025-03-11 10:54] LABS: Magnesium 1.6 mg/dL (1.5-2.2)
[2025-03-11 12:03] LABS: Pathologist Comment/Body Fluid Reviewed
[2025-03-11] MEDS: Magnesium Sulfate 2 GM in Dextrose 5%-Water (100mL Bag) 100 ML IV (15:10)
[2025-03-11] MEDS: Potassium Chloride Oral Tablet 20 MEQ 60 MEQ PO (15:22)
[2025-03-11] MEDS: APIXABAN 2.5 MG TABLET (WCH) PO (21:12)
[2025-03-12 05:00] VITALS: BP 94/41; PULSE 110; RESP 16; TEMP 36.8; O2SAT 93
[2025-03-12 05:24] LABS: Hematocrit 36.5 % (37-47); Hemoglobin 12.3 g/dL (12.0-15.0); Immature Granulocytes Count 0.020 X10^3/uL (0.0-0.0); Mean Corp Hgb Conc 33.7 g/dL (32-36); Mean Corpuscular Volume 89.7 fL (81-99); Mean Platelet Vol. 11.3 fl (6.2-12.0); NRBC Flagged by Analyzer 0 % (0-5); POSITIVE DIFFERENTIAL YES; Platelet Count 157 K/mm3 (150-450); RBC Distribution Width CV 17.0 % (11.6-14.6); RBC Distribution Width SD 55.9 fl (35.1-43.9); Red Blood Count 4.07 M/mm3 (4.2-5.4); White Blood Count 5.7 K/mm3 (4.4-11.0)
[2025-03-12 05:49] LABS: Anion Gap 11 (5-15); BUN 44 mg/dL (4-19); BUN/Creat Ratio 29.5 RATIO (10-20); Calcium,Total 8.3 mg/dL (7.6-11.0); Carbon Dioxide 32.3 mmol/L (21.0-32.0); Chloride 86 mmol/L (98-108); Estimated Creatinine Clearance 22.94 ml/min (50-250); Glucose 126 mg/dL (70-99); Potassium 3.7 mmol/L (3.3-5.1)
[2025-03-12] MEDS: 0.9% Saline Lock 10 ML Syringe IV (06:11)
[2025-03-12 07:40] VITALS: BP 93/59; PULSE 93; RESP 18; TEMP 36.7; O2SAT 95
[2025-03-12 10:05] VITALS: BP 95/50; PULSE 99; RESP 18; TEMP 36.3; O2SAT 97
[2025-03-12] MEDS: APIXABAN 2.5 MG TABLET (WCH) PO (10:09)
[2025-03-12] MEDS: Senna Tablet 2 TABLET PO (10:11)
[2025-03-12] MEDS: Cholecalciferol (VIT D3) 25 MCG TABLET (1,000 UNITS) 50 MCG PO (10:11)
[2025-03-12 10:49] VITALS: BP 95/50; PULSE 99
--- NOTE | 2025-03-12 11:38 | PN.HOSP_ITS ---
Subjective Subjective Doing well, she is completing diuresis renal function is stable and shows her respiratory status, blood pressure still remain a little bit soft Objective Data Objective Data Vital Signs: Vital Signs Temp Pulse Resp BP Pulse Ox O2 Del Method 97.4 F L 99 18 95/50 L 97 Room Air 03/12/25 10:05 03/12/25 10:49 03/12/25 10:05 03/12/25 10:49 03/12/25 10:05 03/12/25 10:05 Oxygen Delivery Method Room Air Weight: 164 lb 7.437 oz Body Mass Index (BMI) 34.3 Intake & Output: Intake and Output for Last 24 Hours 03/11/25 03/12/25 03/13/25 03:59 03:59 03:59 Intake Total 1178.68 / 1178.68 584 / 584 Output Total 5170 / 5170 1375 / 1375 275 / 275 Balance -3991.32 / -3991.32 -791 / -791 -275 / -275 Lab / Micro Data 03/12/25 04:40 03/12/25 04:40 Labs: Laboratory Results - last 24 hr 03/10/25 12:18: Fl Pathologist Comment Reviewed, Miscellaneous Cytology SEE PATHOLOGY REPORT 03/12/25 04:40: WBC 5.7, RBC 4.07 L, Hgb 12.3, Hct 36.5 L, MCV 89.7, MCH 30.2, MCHC 33.7, RDW Std Deviation 55.9 H, RDW Coeff of Kierra 17.0 H, Plt Count 157, MPV 11.3, Immature Gran % (Auto) 0.400, Neut % (Auto) 71.7 H, Lymph % (Auto) 10.1 L, [place] % (Auto) 13.8 H, Eos % (Auto) 3.5, Baso % (Auto) 0.5, Absolute Neuts (auto) 4.1, Absolute Lymphs (auto) 0.57 L, Nucleated RBC % 0, Sodium 130 L, Potassium 3.7, Chloride 86 L, Carbon Dioxide 32.3 H, Anion Gap 11, BUN 44 H, Creatinine 1.50 H, Estim Creat Clear Calc 22.94 L, Est GFR (MDRD) Non-Af 33 L, B UN/Creatinine Ratio 29.5 H, Glucose 126 H, Calcium 8.3 Micro: Microbiology 03/10/25 12:18 Fluid - Pleural (Lung) Gram Stain - Final 03/10/25 12:18 Fluid - Pleural (Lung) Body Fluid Culture - Preliminary No growth-Final to follow 03/10/25 12:18 Fluid - Pleural (Lung) Anaerobic Culture - Preliminary No growth in 48 hours. Rhythm Strip Rhythm Strip: A-fib (Subsequent strip showing rate controlled atrial fibrillation) Rate: 115 Ectopy: None Physical Exam Narrative General: Alert, Oriented x3, Cooperative, No apparent distress HEENT: Atraumatic, PERRLA, EOMI, Normocephalic Oral: Moist Mucosa Neck: Supple, No JVD Lungs: Diminished, Normal air movement, No rhonchi, No wheeze, No rales Cardiovascular: Regular rate, Regular Rhythm, Normal S1, Normal S2, No murmurs Abdomen: Soft, Non Tender, Non-Distended, No Hepato-splenomegaly Extremities: Slight edema, Capillary Refill Less than 3 Seconds Skin: No rashes, No breakdown Musculoskeletal: No Tenderness to Palpation of Joints or Extremities Neurological: No focal neurological deficits, moves all extremities Psych/Mental Status: Normal Affect, Appropriate Assessment & Plan Assessment/Plan (1) Bilateral pleural effusion: (2) Atrial fibrillation with rapid ventricular response: (3) KENNEY (acute kidney injury): PLAN: Plan 1. Acute on chronic diastolic CHF with moderate MR/KENNEY on CKD 3/bilateral pleural effusions/paroxysmal A-fib ? Discontinue her Lasix drip she did have improvement in her kidney function, baseline is 1.2-1.4 ?Continue with twice daily dosing of Lasix but will change to p.o. 40 mg ? Thoracentesis with 870 cc removed which was transudative ? She has been diuresed to a balance of -13,000 ml ? Her metoprolol was decreased to 25 mg p.o. twice daily, she was added on hydralazine 10 mg twice daily as well as Jardiance for goal-directed therapy however blood pressures have been soft therefore we will discontinue hydralazin but continue with her other home medications ? ACEs and ARB's were not initiated secondary to renal function ? Appreciate palliative care's assistance ? Continue with Eliquis ? Will hold off Aldactone as her pressures are soft ? PT/OT for her generalized weakness, will probably need SNF 2. GERD ? Stable ? Continue with PPI 3. History of breast cancer ? Continue with tamoxifen DVT: Eliquis Charges/Coding Visit Charges Inpatient E&M: 80696 Subs Hosp L2
[2025-03-12] MEDS: Polyethylene Glycol 3350 17 GM PACKET PO (11:55)
--- NOTE | 2025-03-12 14:39 | TREXTCAR_ITS ---
Diet Diet Order/Speech Therapy: INPATIENT Hospital Diet / Speech Therapy Order(s) 03/06/25 17:46 Diet: Cardiac - Heart Healthy Food consistency:: Regular Liquid Consistency:: Regular/Thin Dietary Modifications:: Sodium Restricted Type of Dietary Supplement:: Magic Cup w/ lunch Fluid restriction:: 1500 mL Routine Orders/Code Status Routine Lab Work: CBC and BMP Code Status: DNRCC-A DC O2, CPAP, BIPAP needs Home O2 Discharge instructions: No Wound(s) Right foot large toe: Wound Type: Skin Tear Right foot 3rd toe: Wound Type: Skin Tear left abdominal fold: Wound Type: Skin Tear Therapies Physical Therapy: Eval and Treat Occupational Therapy: Eval and Treat Problem/Diagnosis (1) Bilateral pleural effusion: Status: Acute Code(s): J90 - Pleural effusion, not elsewhere classified (2) Atrial fibrillation with rapid ventricular response: Status: Acute Code(s): I48.91 - Unspecified atrial fibrillation (3) KENNEY (acute kidney injury): Status: Acute Code(s): N17.9 - Acute kidney failure, unspecified Plan 1. Acute on chronic diastolic CHF with moderate MR/KENNEY on CKD 3/bilateral pleural effusions/paroxysmal A-fib ? Discontinue her Lasix drip she did have improvement in her kidney function, baseline is 1.2-1.4 ?Continue with twice daily dosing of Lasix but will change to p.o. 40 mg ? Thoracentesis with 870 cc removed which was transudative ? She has been diuresed to a balance of -13,000 ml ? Her metoprolol was decreased to 25 mg p.o. twice daily, she was added on hydralazine 10 mg twice daily as well as Jardiance for goal-directed therapy however blood pressures have been soft therefore we will discontinue hydralazin but continue with her other home medications ? ACEs and ARB's were not initiated secondary to renal function ? Appreciate palliative care's assistance ? Continue with Eliquis ? Will hold off Aldactone as her pressures are soft ? PT/OT for her generalized weakness, will probably need SNF 2. GERD ? Stable ? Continue with PPI 3. History of breast cancer ? Continue with tamoxifen DVT: Eliquis Allergies/Procedures Done in Hospital Allergies sulfamethoxazole (From ) Allergy (Intermediate, Verified 03/06/25 12:53) Dizziness trimethoprim (From Septra) Allergy (Intermediate, Verified 03/06/25 12:53) Dizziness Penicillins (PCN) Allergy (Verified 03/06/25 12:53) Swelling erythromycin base Adverse Reaction (Verified 03/06/25 12:53) Nausea Procedures: 2-D Echocardiogram and Thoracentesis Type of Care/Length of Stay Estimated LOS: Convalescent Care Less Than 30 days Type of Care Needed: Skilled Rehab Potential: Good Prognosis: Good Additional Orders/Day of Discharge Day of Discharge: 03/12/25 Dietary and Speech Recommendations Dietitian Recommendations/Changes: Will continue cardiac diet with 1500mL/day fluid restriction. Will offer magic cup with lunch tray. Discharge Plan Admission Admit Date/Time: 03/06/25 16:54 Attending Provider: Russell John Primary Care Provider: Waqas Palma Consulting Providers: Stefano Black; Ines Fernández; Jaimie Ocasio Discharge Orders/Prescriptions Prescriptions: New furosemide 40 mg Tablet 40 mg PO DAILY Qty: 0 0RF Rx Instructions: start 03/14 metoprolol tartrate 25 mg Tablet 25 mg PO BID Qty: 0 0RF Eliquis 5 mg Tablet 2.5 mg PO BID Qty: 0 0RF Jardiance 10 mg Tablet 10 mg PO DAILY Qty: 0 0RF Continued diphenhydramine HCl [Benadryl Allergy] 25 mg tablet 25 mg PO QHS PRN (Reason: allergy symptoms) Centrum Silver Women 8 mg iron-400 mcg-50 mcg tablet 1 tab PO QDAY tramadol 50 mg tablet 25 mg PO QHS PRN (Reason: pain) tamoxifen 20 mg tablet 20 mg PO QDAY 90 Days Qty: 90 3RF cholecalciferol (vitamin D3) 50 MCG capsule 2,000 unit PO DAILY cranberry extract-vitamin C 1 EACH capsule 2 ea PO DAILY oxybutynin chloride 5 mg tablet extended release 24hr 5 mg PO DAILY omeprazole 20 mg capsule,delayed release(DR/EC) 20 mg PO QHS potassium chloride 20 mEq tablet,ER particles/crystals 20 meq PO DAILY Qty: 90 3RF Held spironolactone 25 mg tablet 25 mg PO QDAY Hold Instructions: Resume on 03/17/25. Discontinued Eliquis 5 mg tablet 5 mg PO BID Qty: 60 11RF metoprolol tartrate 50 mg tablet 50 mg PO BID Rx Instructions: can take 2 tabs if heart rate is >100 furosemide [Lasix] 40 mg tablet 20 mg PO BID Referrals / Follow Up: Waqas Palma MD [Primary Care Provider, Family Practice] Disposition Disposition (needs filled in before D/C Order can be placed): Long-Term Facility
[2025-03-12 15:05] VITALS: BP 95/50; PULSE 99; RESP 18; TEMP 36.3; O2SAT 97
--- NOTE | 2025-03-12 15:26 | PHA.DC.MR.R ---
Pharmacy CT Med Reconciliation Pharmacy Service has performed discharge medication reconciliation for this patient. The patient's discharge medication list was reviewed for discrepancies and discrepancies were resolved. Medications at Discharge Home Medications cholecalciferol (vitamin D3) 50 mcg (2,000 unit) capsule 2,000 unit PO DAILY SUPPLEMENT 03/05/20 cranberry extract-vitamin C 250 mg-60 mg capsule 2 ea PO DAILY URINARY HEALTH 03/05/20 diphenhydramine HCl 25 mg tablet (Benadryl Allergy) 25 mg PO QHS PRN allergy symptoms 07/22/24 omeprazole 20 mg capsule,delayed release 20 mg PO QHS GI health 10/01/24 oxybutynin chloride 5 mg tablet,extended release 24 hr 5 mg PO DAILY bladder health 10/01/24 [id number] 8 mg-folic 400 mcg-K 50 mcg-lutein 300 mcg tablet (Centrum Silver Women) 1 tab PO QDAY general health 10/30/24 potassium chloride 20 mEq tablet,extended release(part/cryst) 20 meq PO DAILY #90 tabs 11/26/24 spironolactone 25 mg tablet 25 mg PO QDAY diuretic 01/30/25 Held on 03/12/25. Instructions: Resume on 03/17/25. tamoxifen 20 mg tablet 20 mg PO QDAY 90 days #90 tabs 01/30/25 tramadol 50 mg tablet 25 mg PO QHS PRN pain 01/30/25 apixaban 5 mg tablet (Eliquis) 2.5 mg (1/2 x 5 mg) PO BID #0 tabs 03/12/25 empagliflozin 10 mg tablet (Jardiance) 10 mg PO DAILY #0 tabs 03/12/25 furosemide 40 mg tablet 40 mg PO DAILY #0 tabs 03/12/25 metoprolol tartrate 25 mg tablet 25 mg PO BID #0 tabs 03/12/25
--- NOTE | 2025-03-12 15:37 | CASEMGMT ---
RN BRITANY update by Negar in TCU that precert has been obtained and patient is able to discharge to TCU today if ready. INEZ GARG updated hospitalist and discharge order received for patient to discharge to [facility] for skilled level of care. RN BRITANY called and updated daughter Gloria regarding insurance approval and planned discharge for today. Daughter had no further questions or concerns. INEZ GARG in to update patient regarding discharge to TCU today, patient voiced understanding. INEZ GARG updated nursing.
--- NOTE | 2025-03-12 16:01 | NURSING ---
Report called to nurse Pastor for pt to be d/c to TCU.
--- NOTE | 2025-03-12 16:19 | PCM.DC.SUM ---
Providers Date of Admission: 03/06/25 Primary Care Physician: Dr. Waqas Palma MD Consultations 03/07/25 06:53 Consult: Inpatient Palliative Care Routine Consulting Provider: Ines Fernández Reason for Consult: Goals of care/89 full code with multiple comorbidities EMERGENT Consult: No MD Notified: Yes Date Notified: 03/07/25 Time Notified: 06:53 Method of Notification: Text Reason For Visit: CHF EXACERBATION Diagnosis Discharge Diagnosis (1) Bilateral pleural effusion: Status: Acute Code(s): J90 - Pleural effusion, not elsewhere classified (2) Atrial fibrillation with rapid ventricular response: Status: Acute Code(s): I48.91 - Unspecified atrial fibrillation (3) KENNEY (acute kidney injury): Status: Acute Code(s): N17.9 - Acute kidney failure, unspecified Medications at Discharge Home Medications cholecalciferol (vitamin D3) 50 mcg (2,000 unit) capsule 2,000 unit PO DAILY SUPPLEMENT 03/05/20 cranberry extract-vitamin C 250 mg-60 mg capsule 2 ea PO DAILY URINARY HEALTH 03/05/20 diphenhydramine HCl 25 mg tablet (Benadryl Allergy) 25 mg PO QHS PRN allergy symptoms 07/22/24 omeprazole 20 mg capsule,delayed release 20 mg PO QHS GI health 10/01/24 oxybutynin chloride 5 mg tablet,extended release 24 hr 5 mg PO DAILY bladder health 10/01/24 [id number]-[id number] 8 mg-folic 400 mcg-K 50 mcg-lutein 300 mcg tablet (Centrum Silver Women) 1 tab PO QDAY general health 10/30/24 potassium chloride 20 mEq tablet,extended release(part/cryst) 20 meq PO DAILY #90 tabs 11/26/24 spironolactone 25 mg tablet 25 mg PO QDAY diuretic 01/30/25 Held on 03/12/25. Instructions: Resume on 03/17/25. tamoxifen 20 mg tablet 20 mg PO QDAY 90 days #90 tabs 01/30/25 tramadol 50 mg tablet 25 mg PO QHS PRN pain 01/30/25 apixaban 5 mg tablet (Eliquis) 2.5 mg (1/2 x 5 mg) PO BID #0 tabs 03/12/25 empagliflozin 10 mg tablet (Jardiance) 10 mg PO DAILY #0 tabs 03/12/25 furosemide 40 mg tablet 40 mg PO DAILY #0 tabs 03/12/25 metoprolol tartrate 25 mg tablet 25 mg PO BID #0 tabs 03/12/25 Hospital Course Operations None Procedures 2-D Echocardiogram Summary of Care Provided Minutes Spent on Discharge: 34 Hospital Course: Per HPI: NESTOR MONTES DE OCA, is a 89 F who presents with progressive weakness. Patient is having difficulty getting into the car. This is a 89-year-old female with history of A-fib and heart failure who presents with weakness has been progressive, 1 day history of right leg pain, increased swelling in her lower extremities and a 20 pound weight gain since January. So she presented to the emergency room as she was noted to be in atrial fibrillation with RVR and did receive a one-time dose of diltiazem 25 mg IV. Heart rate has since improved. Her potassium is noted to be 6.1 though it was hemolyzed patient was ordered medications such as calcium gluconate albuterol, insulin, dextrose. Repeat sample has been requested. Patient has been taking furosemide as well as spironolactone but still has been putting on this weight. Patient had chest x-ray that showed pleural effusions. The hospital service was contacted for admission. Despite the increased weight gain and pleural effusions and pulmonary vascular congestion, patient is breathing comfortably on room air with sats well in the 90s. Hospital Course: 1. Acute on chronic diastolic CHF with moderate MR/KENNEY on CKD 3/bilateral pleural effusion/paroxysmal A-fib?89-year-old female presented to the hospital with increasing weakness and shortness of breath. She had been decreased on her diuretics secondary to concerns for her renal function. However we will just have to tolerate a higher creatinine. She was placed on the Lasix drip and by the time she was discharged she had diuresed over 20 L with a net balance of -16.8 L. She remains on room air and she had 870 cc removed on the thoracentesis from the left lung that was a transudative effusion. Initially she was started on hydralazine and had her metoprolol decreased from 50 to 25 mg p.o. twice daily and her Aldactone had been held, however once she was completely diuresed she had borderline low pressures, she did have a slight rise in her creatinine to 1.83, with diuresis she had improved from 2.28 down to 1.78 and then increased to 1.83 at which point she was transition from her Lasix drip to IV Lasix 40 mg twice daily however pressures became softer so this was transition to p.o. and her hydralazine was discontinued. Will continue with metoprolol at 25 mg p.o. twice daily and will continue with Lasix 40 mg p.o. daily. I do recommend holding the Lasix for another couple of days while continuing with the metoprolol, and would also recommend holding her Aldactone for a few days as well. I do recommend outpatient monitoring of her electrolytes and renal function. I discussed with her the possibility of discharge and she expressed understanding of the risks and benefits of going to the intermediate and would like to go today. Despite her softer pressures her maps remained in the mid 60s and she remained asymptomatic. She was started on Jardiance for goal-directed therapy of her heart failure as she had an EF on echocardiogram of 45% with PASP of 60 mmHg. Also her Eliquis was dose adjusted for her renal function, age and weight 2.5 mg p.o. twice daily. 2. GERD, history of breast cancer, incontinence all chronic medical conditions which complicate her care. Her home medications were continued where appropriate Weight / BMI Weight Weight: 164 lb 7.437 oz Body Mass Index (BMI) 34.3 ABG / Lab / Microbiology Data 03/12/25 04:40 03/12/25 04:40 Laboratory: Laboratory Results - last 24 hr 03/10/25 12:18: Miscellaneous Cytology SEE PATHOLOGY REPORT 03/12/25 04:40: WBC 5.7, RBC 4.07 L, Hgb 12.3, Hct 36.5 L, MCV 89.7, MCH 30.2, MCHC 33.7, RDW Std Deviation 55.9 H, RDW Coeff of Kierra 17.0 H, Plt Count 157, MPV 11.3, Immature Gran % (Auto) 0.400, Neut % (Auto) 71.7 H, Lymph % (Auto) 10.1 L, [place] % (Auto) 13.8 H, Eos % (Auto) 3.5, Baso % (Auto) 0.5, Absolute Neuts (auto) 4.1, Absolute Lymphs (auto) 0.57 L, Nucleated RBC % 0, Sodium 130 L, Potassium 3.7, Chloride 86 L, Carbon Dioxide 32.3 H, Anion Gap 11, BUN 44 H, Creatinine 1.50 H, Estim Creat Clear Calc 22.94 L, Est GFR (MDRD) Non-Af 33 L, BUN/Creatinine Ratio 29.5 H, Glucose 126 H, Calcium 8.3 Microbiology: Microbiology 03/10/25 12:18 Fluid - Pleural (Lung) Gram Stain - Final 03/10/25 12:18 Fluid - Pleural (Lung) Body Fluid Culture - Preliminary No growth-Final to follow 03/10/25 12:18 Fluid - Pleural (Lung) Anaerobic Culture - Preliminary No growth in 48 hours. D/C Instructions DC O2, CPAP, BIPAP Needs Home O2 Discharge instructions: No Meaningful Use Info Meaningful Use Meaningful Use Diagnoses (Choose all that apply): None applicable Discharge Plan Admission Admit Date/Time: 03/06/25 16:54 Attending Provider: Russell John Primary Care Provider: Waqas Palma Consulting Providers: Stefano Black; Ines Fernández; Jaimie Ocasio Discharge Orders/Prescriptions Prescriptions: New furosemide 40 mg Tablet 40 mg PO DAILY Qty: 0 0RF Rx Instructions: start 03/14 metoprolol tartrate 25 mg Tablet 25 mg PO BID Qty: 0 0RF Eliquis 5 mg Tablet 2.5 mg PO BID Qty: 0 0RF Jardiance 10 mg Tablet 10 mg PO DAILY Qty: 0 0RF Continued diphenhydramine HCl [Benadryl Allergy] 25 mg tablet 25 mg PO QHS PRN (Reason: allergy symptoms) Centrum Silver Women 8 mg iron-400 mcg-50 mcg tablet 1 tab PO QDAY tramadol 50 mg tablet 25 mg PO QHS PRN (Reason: pain) tamoxifen 20 mg tablet 20 mg PO QDAY 90 Days Qty: 90 3RF cholecalciferol (vitamin D3) 50 MCG capsule 2,000 unit PO DAILY cranberry extract-vitamin C 1 EACH capsule 2 ea PO DAILY oxybutynin chloride 5 mg tablet extended release 24hr 5 mg PO DAILY omeprazole 20 mg capsule,delayed release(DR/EC) 20 mg PO QHS potassium chloride 20 mEq tablet,ER particles/crystals 20 meq PO DAILY Qty: 90 3RF Held spironolactone 25 mg tablet 25 mg PO QDAY Hold Instructions: Resume on 03/17/25. Discontinued Eliquis 5 mg tablet 5 mg PO BID Qty: 60 11RF metoprolol tartrate 50 mg tablet 50 mg PO BID Rx Instructions: can take 2 tabs if heart rate is >100 furosemide [Lasix] 40 mg tablet 20 mg PO BID Referrals / Follow Up: Waqas Palma MD [Primary Care Provider, Family Practice] Disposition Disposition (needs filled in before D/C Order can be placed): [facility] Charges/Coding Visit Charges Inpatient E&M: 33111 Disch Hosp >30min
== END 2025-03-12 16:45 | DRG 291 ==
LOC: ED 16:00 → PCU 17:04
PROVIDERS: Internal Medicine; Emergency Provider Emergency Medicine; PCP Family Medicine; Visit Provider Family Medicine
DX: I13.0 Hypertensive heart and chronic kidney disease with heart failure and stage 1 through stage 4 chronic kidney disease, or unspecified chronic kidney disease (principal); I50.33 Acute on chronic diastolic (congestive) heart failure; J90 Pleural effusion, not elsewhere classified; N17.9 Acute kidney failure, unspecified; Z66 Do not resuscitate; C50.912 Malignant neoplasm of unspecified site of left female breast; N18.32 Chronic kidney disease, stage 3b; Z95.828 Presence of other vascular implants and grafts; I48.0 Paroxysmal atrial fibrillation; K21.9 Gastro-esophageal reflux disease without esophagitis; E87.5 Hyperkalemia; E87.6 Hypokalemia; Z79.01 Long term (current) use of anticoagulants; Z90.12 Acquired absence of left breast and nipple; Z79.810 Long term (current) use of selective estrogen receptor modulators (SERMs); Z78.0 Asymptomatic menopausal state; Z79.899 Other long term (current) drug therapy; Z86.718 Personal history of other venous thrombosis and embolism; Z23 Encounter for immunization
CPT/HCPCS: 32555; 36415; 71045; 71046; 72100; 73502; 76770; 80048; 80053; 82945; 82962; 83615; 83735; 83880; 84100; 84132; 84157; 84484; 85025; 87070; 87075; 87205; 88108; 88305; 88313; 89050; 93005; 93306; 97116; 97162; 97166; 97530; 97535; 99285; A4216; J0612; J1938